=== PATIENT | male | born 1945 | race Caucasian/White ===

== ENCOUNTER 2018-02-04 23:39 | Emergency (ER) | payer BC, SELFPAY ==
[2018-02-04 23:42] VITALS: BP 156/71; PULSE 79; RESP 21; TEMP 37.2; O2SAT 96
--- NOTE | 2018-02-04 23:49 | W.ED.GENAD ---
Discharge Plan Disposition Patient Disposition: HOME Condition: Stable Discharge Details Chief Complaint: Chest Pain Clinical Impression: Burning chest pain, Gastroesophageal reflux disease Primary Care Provider: Narendra Bennett ED Provider: Dominic Haque Home Meds and New Rx's Prescriptions: Continue cetirizine [Zyrtec] 10 MG tablet 10 mg PO PRN RF: 0 [id number]-1-exm-dha-fish oil-flax-E [Thera Tears Nutrition] 1 EACH capsule 2 ea PO DAILY RF: 0 meloxicam [Mobic] 15 MG tablet 15 mg PO DAILY Qty: 30 RF: 2 aspirin 325 MG tablet 325 mg PO DAILY RF: 0 simvastatin 40 MG tablet 20 mg PO DAILY RF: 0 ranitidine HCl [Zantac] 150 MG tablet 1 tab PO BID RF: 0 Discharge Instructions Instructions: Gastroesophageal Reflux Disease (ED) Additional Instructions: you can use maalox and pepto bismol for pain as needed, follow dosing instructions on packaging follow up with your primary care provider this week if you have severe worsening pain, difficulty breathing or chest pressure return to the emergency department Medical Decision Making 73 yo male with hx of gerd, hld comes in with chief complaint of burning in his chest that started about 4 hours ago. He states he felt well all day and ate normally but did have banana bread which he normally doesn't have and had burning in his chest. Denies radiation of pain, diaphoresis, sob and has no abdominal tenderness. I suspect the pt's symptoms are due to gastritis vs reflux vs ulcer, will treat with gi cocktail. Given his age will obtain ekg and troponin to eval for possible acs though unliekly given lack of radiation of pain or increased pain with exertion. No hypoxia or tachycardia so doubt PE and no tearing back pain to suggest dissection labs pending but pain now completely gone with gi cocktail, no new symptoms Pt remains pain free and labs show no acute abnormalities. Given he had the pain more than 3 hours ago do not feel repeat troponin testing indicated. Will have him use maalox as needed and advised f/u with pcp, return precautions given Differential Diagnosis acs, gastritis, gerd, esophagitis Lab Data Lab results reviewed: Yes I reviewed the patient's lab results. ECG Data Attestation: I personally reviewed and interpreted this ECG (s) as follows: Prior ECG tracings: available for review Interpretation: normal sinus rhythm, left axis, rate of 87, normal pr, no st t wave changes HPI General Mode of arrival: ambulatory. Date/Time Provider Initiated Documentation: 02/04/18 23:42. Limitations to Documentation: no limitations. Information obtained by: patient. History of Present Illness 73 year old M presents to the emergency department with the chief complaint of chest burning, described as moderate, Quality is described as burning, and is localized to the chest. Patient reports no radiation. Patient started experiencing this hour(s) (4) and it has been constant. No relieving factors improve symptom(s), No exacerbating factors reported . Patient notes no other symptoms.. Patient did receive the following treatments prior to arrival, other (rolaid) Related Data Home Medications Medication Instructions Recorded Confirmed aspirin 325 mg PO DAILY 02/03/13 05/14/15 simvastatin 20 mg PO DAILY 02/03/13 05/14/15 ranitidine HCl [Zantac] 1 tab PO BID 01/25/15 05/14/15 cetirizine [Zyrtec] 10 mg PO PRN 09/30/17 naeq-1-[id number]-dha-fish oil-flax-E 2 ea PO DAILY 09/30/17 [Thera Tears Nutrition] meloxicam [Mobic] 15 mg PO DAILY #30 tab-cap 10/05/17 Allergies Allergy/AdvReac Type Severity Reaction Status Date / Time polymyxin B sulfate Allergy Unknown Unverified 09/30/17 08:47 [From Polytrim] trimethoprim [From Polytrim] Allergy Unknown Unverified 09/30/17 08:47 Review of Systems Review of Systems All systems reviewed & are unremarkable except as noted in HPI and below Constitutional Denies chills, Denies fever(s) and Denies weakness Eyes Patient Denies loss of vision ENT Denies change in voice Cardiovascular Denies dyspnea Respiratory Denies dyspnea Gastrointestinal Denies abdominal pain, Denies nausea and Denies vomiting Genitourinary Denies dysuria Musculoskeletal Denies joint swelling Integumentary/Breasts Denies rash Neurologic Denies loss of vision and Denies weakness Psychiatric Denies depression Endocrine Denies cold intolerance and Denies heat intolerance Allergic/Immunologic Reports urticaria PFSH Social History Smoking/Tobacco Use Status: Former Tobacco Use Exam Const General: no acute distress Orientation: alert HENMT Head: normal to inspection Ears: external ears normal General nose exam: external nose normal Mouth: moist mucous membranes Eyes General: appearance normal, both eyes and all related structures Neck Neck: normal visual inspection Resp Effort & Inspection: normal respiratory effort and able to speak in complete sentences Cardio Rate: regular rate GI Palpation: soft and nontender Skin General skin exam: no rashes or lesions noted Neuro General: alert and oriented x3 Extrem General: normal to inspection Psych Mental Status: mental status grossly normal
--- NOTE | 2018-02-04 23:55 | ED.GENADUL_ITS ---
Discharge Plan Disposition Patient Disposition: HOME Condition: Stable Discharge Details Chief Complaint: Chest Pain Clinical Impression: Burning chest pain, Gastroesophageal reflux disease Primary Care Provider: Narendra Bennett ED Provider: Dominic Haque Home Meds and New Rx's Prescriptions: Continue cetirizine [Zyrtec] 10 MG tablet 10 mg PO PRN RF: 0 pxjx-8-iyu-dha-fish oil-flax-E [Thera Tears Nutrition] 1 EACH capsule 2 ea PO DAILY RF: 0 meloxicam [Mobic] 15 MG tablet 15 mg PO DAILY Qty: 30 RF: 2 aspirin 325 MG tablet 325 mg PO DAILY RF: 0 simvastatin 40 MG tablet 20 mg PO DAILY RF: 0 ranitidine HCl [Zantac] 150 MG tablet 1 tab PO BID RF: 0 Discharge Instructions Instructions: Gastroesophageal Reflux Disease (ED) Additional Instructions: you can use maalox and pepto bismol for pain as needed, follow dosing instructions on packaging follow up with your primary care provider this week if you have severe worsening pain, difficulty breathing or chest pressure return to the emergency department Medical Decision Making 73 yo male with hx of gerd, hld comes in with chief complaint of burning in his chest that started about 4 hours ago. He states he felt well all day and ate normally but did have banana bread which he normally doesn't have and had burning in his chest. Denies radiation of pain, diaphoresis, sob and has no abdominal tenderness. I suspect the pt's symptoms are due to gastritis vs reflux vs ulcer, will treat with gi cocktail. Given his age will obtain ekg and troponin to eval for possible acs though unliekly given lack of radiation of pain or increased pain with exertion. No hypoxia or tachycardia so doubt PE and no tearing back pain to suggest dissection labs pending but pain now completely gone with gi cocktail, no new symptoms Pt remains pain free and labs show no acute abnormalities. Given he had the pain more than 3 hours ago do not feel repeat troponin testing indicated. Will have him use maalox as needed and advised f/u with pcp, return precautions given Differential Diagnosis acs, gastritis, gerd, esophagitis Lab Data Lab results reviewed: Yes I reviewed the patient's lab results. ECG Data Attestation: I personally reviewed and interpreted this ECG (s) as follows: Prior ECG tracings: available for review Interpretation: normal sinus rhythm, left axis, rate of 87, normal pr, no st t wave changes HPI General Mode of arrival: ambulatory . Date/Time Provider Initiated Documentation: 02/04/18 23:42 . Limitations to Documentation: no limitations . Information obtained by: patient . History of Present Illness 73 year old M presents to the emergency department with the chief complaint of chest burning, described as moderate, Quality is described as burning, and is localized to the chest. Patient reports no radiation. Patient started experiencing this hour(s) (4) and it has been constant. No relieving factors improve symptom(s), No exacerbating factors reported . Patient notes no other symptoms.. Patient did receive the following treatments prior to arrival, other (rolaid) Related Data Home Medications Medication Instructions Recorded Confirmed aspirin 325 mg PO DAILY 02/03/13 05/14/15 simvastatin 20 mg PO DAILY 02/03/13 05/14/15 ranitidine HCl [Zantac] 1 tab PO BID 01/25/15 05/14/15 cetirizine [Zyrtec] 10 mg PO PRN 09/30/17 [id number]-9-hac-dha-fish oil-flax-E 2 ea PO DAILY 09/30/17 [Thera Tears Nutrition] meloxicam [Mobic] 15 mg PO DAILY #30 tab-cap 10/05/17 Allergies Allergy/AdvReac Type Severity Reaction Status Date / Time polymyxin B sulfate Allergy Unknown Unverified 09/30/17 08:47 [From Polytrim] trimethoprim [From Polytrim] Allergy Unknown Unverified 09/30/17 08:47 Review of Systems Review of Systems All systems reviewed & are unremarkable except as noted in HPI and below Constitutional Denies chills, Denies fever(s) and Denies weakness Eyes Patient Denies loss of vision ENT Denies change in voice Cardiovascular Denies dyspnea Respiratory Denies dyspnea Gastrointestinal Denies abdominal pain, Denies nausea and Denies vomiting Genitourinary Denies dysuria Musculoskeletal Denies joint swelling Integumentary/Breasts Denies rash Neurologic Denies loss of vision and Denies weakness Psychiatric Denies depression Endocrine Denies cold intolerance and Denies heat intolerance Allergic/Immunologic Reports urticaria PFSH Social History Smoking/Tobacco Use Status: Former Tobacco Use Exam Const General: no acute distress Orientation: alert HENMT Head: normal to inspection Ears: external ears normal General nose exam: external nose normal Mouth: moist mucous membranes Eyes General: appearance normal, both eyes and all related structures Neck Neck: normal visual inspection Resp Effort & Inspection: normal respiratory effort and able to speak in complete sentences Cardio Rate: regular rate GI Palpation: soft and nontender Skin General skin exam: no rashes or lesions noted Neuro General: alert and oriented x3 Extrem General: normal to inspection Psych Mental Status: mental status grossly normal
[2018-02-05 00:02] LABS: Abs Immature Grans 0.02 k/cumm (0.0-0.09); Absolute Basophil Count 0.03 k/cumm (0.0-0.2); Absolute Lymphocyte Count 2.16 k/cumm (1.2-3.4); Absolute Neutrophil Count 3.78 k/cumm (1.2-6.7); Basophils % 0.4; Eosinophils % 7.2; HCT 40.9 % (40.0-50.0); HGB 13.9 g/dL (13.5-17.5); Immature Grans % 0.3; Lymphocytes % 30.9; Mean Corpuscular Hemoglobin 29.9 pg (27.0-33.0); Mean Platelet Volume 9.6 fL (8.0-11.0); Monocytes % 7.2; Platelet Count 220 x1000/uL (130-400); RBC 4.65 m/cumm (4.50-6.00); RBC Distribution Width 13.8 % (11.8-14.1); White Blood Cell Count 6.99 k/cumm (4.4-10.8)
[2018-02-05 00:23] LABS: ALT 33 U/L (12-78); AST 27 U/L (15-37); Albumin 3.4 g/dL (3.4-5.0); Alkaline Phosphatase 93 U/L (46-116); Anion Gap 9.8 mmol/L (3-11); BUN 17 mg/dL (7-18); Bilirubin, Total 0.3 mg/dL (0.2-1.0); CO2 28.2 mmol/L (21.0-32.0); CREATININE 1.46 mg/dL (0.70-1.30); Calcium 8.2 mg/dL (8.5-10.1); Chloride 109 mmol/L (98-107); Glucose 132 mg/dL (70-100); Lipase 154 U/L (73-393); Magnesium 1.8 mg/dL (1.8-2.4); Potassium 3.5 mmol/L (3.5-5.1); Sodium 147 mmol/L (136-145)
[2018-02-05 00:32] LABS: Troponin I < 0.02 ng/mL (0.00-0.06)
[2018-02-05 00:42] LABS: Prothrombin Time 9.4 sec (9.3-10.8)
[2018-02-05 01:45] VITALS: BP 146/74; PULSE 70; RESP 20; TEMP 37; O2SAT 96
== END 2018-02-05 01:12 | disposition home or self-care (01) ==
LOC: ER 02-05 01:10
PROVIDERS: Emergency Provider Emergency Medicine; PCP General Practice
DX: K21.9 Gastro-esophageal reflux disease without esophagitis (principal); R07.89 Other chest pain; I10 Essential (primary) hypertension
CPT/HCPCS: 36415; 80053; 83690; 93005; 99284; 83735; 84484; 85025; 85610; 93010

== ENCOUNTER 2020-06-26 09:22 | Emergency (ER) | payer OTHER, SELFPAY ==
[2020-06-26] VITALS (32 sets, daily range): BP systolic 138–172; BP diastolic 71–96; PULSE 61–84; RESP 11–24; TEMP 36.2; O2SAT 93–97
--- NOTE | 2020-06-26 09:30 | RT.EKG_ITS ---
APPROVED REPORT Exam: Resting ECG Patient Location: E HR:78 bpm ECG Measurements Heart Rate 78 AXIS TX 181 P 72 QRSd 148 QRS -20 QT 428 T -10 QTc 487 Conclusion Sinus rhythm...normal P axis, V-rate 60- 99 Right bundle branch block...QRSd>120, terminal axis(90,270) I have reviewed and interpreted ECG and agree with software generated interpretation.
--- NOTE | 2020-06-26 09:32 | W.ED.GENAD ---
Discharge Plan Disposition Patient Disposition: HOME Condition: Stable Discharge Details Clinical Impression: Monocular vision loss Primary Care Provider: Unknown,Unknown ED Provider: Fabienne Quiles Home Meds and New Rx's Prescriptions: New clopidogrel [Plavix] 75 mg tablet 75 mg PO DAILY 20 Days Qty: 20 RF: 0 lisinopril 5 mg tablet 5 mg PO DAILY Qty: 20 RF: 0 Continued TheraTears Nutrition 1 EACH capsule 2 ea PO DAILY RF: 0 aspirin 325 MG tablet 325 mg PO HS RF: 0 simvastatin 40 MG tablet 20 mg PO HS RF: 0 sertraline 100 mg tablet 100 mg PO QAM RF: 0 omeprazole 20 mg capsule,delayed release(DR/EC) 20 mg PO QAM RF: 0 budesonide-formoterol [Symbicort] 80-4.5 mcg/actuation HFA aerosol inhaler 1 inh INHALATION DAILY RF: 0 albuterol sulfate 90 mcg/actuation Hfa Aerosol Inhaler 2 inh INHALATION PRN PRNRF: 0 vitamin B27-iewaq acid 500-400 mcg Tablet PO QAM RF: 0 Discharge Instructions Instructions: Blurred Vision (ED) Additional Instructions: Start taking Plavix daily as directed for the next 21 days. Continue taking your aspirin as directed. [facility] for reevaluation with neurology, ophthalmology and for an outpatient ROBIN (transesophageal echocardiogram). 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 Start taking the lisinopril as directed. You can also follow-up with neurology Dr. Tapia here at [facility] for reevaluation. Return immediately to the emergency department if you develop any worsening or new concerning symptoms. Discharge Data Discharge Date/Time-TO BE ENTERED AT DEPARTURE: 06/26/20 14:57 Discharge Physician: Fabienne Quiles Medical Decision Making 75 yo M who presents to the ED w/ a c/o sudden and brief onset of left-sided vision loss that occurred this morning while watching TV. Denies any symptoms at present. Blood pressure hypertensive, otherwise vitals within normal limits. He appears nontoxic and comfortable. No other focal deficit. Bedside ultrasound done at bedside and no evidence of retinal detachment. EKG notes a rate of 78, sinus, right bundle branch block and no acute ST ischemic findings. Differential diagnosis includes amaurosis fugax, retinal detachment, acute CVA, acute retinal vein or artery occlusion, migraine, seizure, etc. we will place an IV, bolus IV fluids, screening labs, CT head, chest x-ray and plan for MRI/MRA brain and neck. CT head negative. Labs reviewed and unremarkable. Troponin negative. CRP 0.45. ESR analyzer down and lab needs to be sent to [place]. Patient is agreeable with plan for MRI/MRA. MRI/MRA brain and neck negative. Case discussed with [facility] neurology who recommended dual antiplatelet therapy with Plavix 75 mg once daily for 21 days and then to resume just aspirin. Agrees that this is likely embolic in nature but does not see indication for admission. 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 Also recommend lisinopril 5 mg daily if blood pressure remains high. Patient reassessed and he remains asymptomatic and feels good to go home. ESR resulted and normal at 27. Advised to follow up with the primary care doctor for re-evaluation. Usual and customary return precautions given prior to discharge. Medical Records Medical records reviewed: Yes I reviewed the patient's medical records. Imaging Data Radiologic Study: Radiologist's impression: XR CHEST 2V PA LATERAL CLINICAL HISTORY: L eye blurry vision, r/o acute disease TECHNIQUE: 2D digital imaging was performed. COMPARISON: CR CHEST 2 VIEWS PA,LAT from 09/25/2010 CT CHEST FOR PULMONARY EMBOLUS from 05/13/2015 FINDINGS: Aorta: Mildly tortuous. HEART: Normal size. PULMONARY VASCULATURE: Normal. LUNGS: Clear. PLEURAL SPACE: No pleural effusion or pneumothorax. BONE:Normal. IMPRESSION: No acute pulmonary findings. CT HEAD WO CLINICAL HISTORY: sudden vision loss L eye, r/o acute cva. TECHNIQUE: Imaging Protocol: Axial computed tomography images with coronal and sagittal reformatted images were created and reviewed COMPARISON: CT HEAD WITHOUT CONTRAST from 05/14/2015 FINDINGS: Ventricles and Extra axial spaces: Normal in size and morphology for the patient's age. Hemorrhage: None. Cerebral parenchyma: Normal. Midline shift: None. Brainstem/Cerebellum: Normal. Calvarium: Normal. Visualized Paranasal sinuses/Mastoids: Minimal ethmoid sinus disease. Mastoids clear. Soft Tissues: Unremarkable. IMPRESSION: No acute intracranial process. MRI:MR angio brain wo CLINICAL HISTORY: sudden vision loss L eye, r/o acute cva. TECHNIQUE: Multiplanar multisequence MRA of the brain was performed. IV Contrast: mL of Magnevist contrast administered. COMPARISON: None. FINDINGS: Carotid Arteries: Petrous: Normal. Cavernous: Normal. Cerebral: Normal. Middle Cerebral Arteries: Right: No aneurysm or significant stenosis. Left: No aneurysm or significant stenosis. Anterior Cerebral Arteries: Right: No aneurysm or significant stenosis. Left: No aneurysm or significant stenosis. The left anterior cerebral artery is supplied via the anterior tear communicating artery, a normal variant.. Vertebral Arteries: Right: No aneurysm or significant stenosis. Left: No aneurysm or significant stenosis. . Basilar Artery: No aneurysm or significant stenosis. Small Vessels: No evidence of beading. IMPRESSION: MRA examination of the [place] of [place] within normal limits of anatomic variation. MR ANGIO NECK WO CLINICAL HISTORY: sudden vision loss L eye, r/o acute cva. TECHNIQUE: Multiplanar multisequence MRA of the Neck was performed. COMPARISON: No exams were available for comparison FINDINGS: Common Carotid: Evaluation of the proximal common carotid arteries limited due to motion artifact. Right: No dissection, occlusion or significant stenosis. Left: No dissection, occlusion or significant stenosis. External Carotid: Right: No evidence of occlusion or significant stenosis. Left: No evidence of occlusion or significant stenosis. Internal Carotid: Right: No dissection, occlusion or significant stenosis. Left: No dissection, occlusion or significant stenosis. Vertebral Artery: Right: No dissection, occlusion or significant stenosis. Left: No dissection, occlusion or significant stenosis. The visualized paraspinal soft tissues are unremarkable. IMPRESSION: No evidence of dissection, occlusion or significant stenosis. Lab Data Lab results reviewed: Yes I reviewed the patient's lab results. Labs: Laboratory Tests Range/Units 06/26/20 06/26/20 06/26/20 09:45 09:45 09:45 WBC (4.4-10.8) 10^3/uL 5.70 RBC (4.36-5.78) 10^6/uL 5.14 Hgb (13.5-17.5) g/dL 14.7 Hct (40.0-50.0) % 43.7 MCV (80-95) fL 85.0 MCH (27.0-33.0) pg 28.6 MCHC (32.0-36.0) % 33.6 RDW (11.8-14.1) % 13.5 Plt Count (130-400) 10^3/uL 232 MPV (8.0-11.0) fL 9.3 Immature Gran % 0.7 Neutrophils % 68.3 Lymphocytes % 19.5 Monocytes % 7.0 Eosinophils % 4.0 Basophils % 0.5 Nucleated RBC % % 0 Absolute Neutrophils (1.2-6.7) 10^3/uL 3.89 Absolute Lymphocytes (1.2-3.4) 10^3/uL 1.11 L Absolute Monocytes (0.1-0.8) 10^3/uL 0.40 Absolute Eosinophils (0.0-0.7) 10^3/uL 0.23 Absolute Basophils (0.0-0.2) 10^3/uL 0.03 Sodium (136-145) mmol/L 141 Potassium (3.5-5.1) mmol/L 3.9 Chloride (98-107) mmol/L 103 Carbon Dioxide (21.0-32.0) mmol/L 26.0 Anion Gap (3-11) mmol/L 12.0 H BUN (7-18) mg/dL 22 H Creatinine (0.70-1.30) mg/dL 1.4 H Estimated GFR/1.73 m2 (mL/min/1.73m2) 49.27 Glucose (74-106) mg/dL 115 H Calcium (8.5-10.1) mg/dL 8.8 Magnesium (1.8-2.4) mg/dL 1.9 Total Bilirubin (0.2-1.0) mg/dL 0.6 AST (15-37) U/L 30 ALT (16-63) U/L 34 Alkaline Phosphatase (46-116) U/L 90 Troponin I (<0.06) ng/mL < 0.05 C-Reactive Protein (0.0-0.3) mg/dL 0.45 H Total Protein (6.4-8.2) g/dL 7.5 Albumin (3.4-5.0) g/dL 3.6 ECG Data Attestation: I personally reviewed and interpreted this ECG (s) as follows: Interpretation: Rate of 78, sinus, right bundle branch block. No acute ST elevation or depression. RI 181. QRS 148. QTc 487. HPI General Mode of arrival: ambulatory. Date/Time Provider Initiated Documentation: 06/26/20 09:31. Limitations to Documentation: no limitations. Information obtained by: patient. HPI Narrative: Patient is a 75-year-old male with a history of hypertension, hyperlipidemia, GERD, prostate cancer who presents with sudden vision loss in his left eye that lasted 15-minute this morning. Patient states he was sitting watching TV when he noticed sudden loss of vision in his left eye. Patient states the symptoms lasted 15 minutes and then completely resolved. He states when the symptoms were improving it seemed like a shade was being pulled back open improving his vision. Patient admits to mild headache over the past few days but otherwise denies any other symptoms of fever, eye pain, nausea, vomiting, chest pain, shortness of breath, dizziness, unilateral extremity numbness or weakness. Related Data Home Medications Medication Instructions Recorded Confirmed aspirin 325 mg PO HS 02/03/13 06/26/20 simvastatin 20 mg PO HS 02/03/13 06/26/20 TheraTears Nutrition 2 ea PO DAILY 09/30/17 06/26/20 albuterol sulfate 2 inh INHALATION PRN PRN 06/26/20 06/26/20 budesonide-formoterol [Symbicort] 1 inh INHALATION DAILY 06/26/20 06/26/20 clopidogrel [Plavix] 75 mg PO DAILY 20 Days #20 tab 06/26/20 lisinopril 5 mg PO DAILY #20 tab 06/26/20 omeprazole 20 mg PO QAM 06/26/20 06/26/20 sertraline 100 mg PO QAM 06/26/20 06/26/20 vitamin [id number] acid tab PO QAM 06/26/20 Previous Rx's Medication Instructions Recorded clopidogrel [Plavix] 75 mg PO DAILY 20 Days #20 tab 06/26/20 lisinopril 5 mg PO DAILY #20 tab 06/26/20 Allergies Allergy/AdvReac Type Severity Reaction Status Date / Time polymyxin B sulfate Allergy Unknown Unverified 06/26/20 09:34 [From Polytrim] trimethoprim [From Polytrim] Allergy Unknown Unverified 06/26/20 09:34 General INÉS: 2 Review of Systems All systems reviewed & are unremarkable except as noted in HPI and below Constitutional Constitutional: Reports as per HPI, Denies chills and Denies fever(s) Eyes Eyes: Reports blurry vision and Reports loss of vision (sudden and brief, left eye) ENT Ears, Nose, Mouth, and Throat: Denies dizziness, Denies sore throat and Denies throat swelling Cardiovascular Cardiovascular: Denies chest pain and Denies dyspnea Respiratory Respiratory: Denies cough and Denies dyspnea Gastrointestinal Gastrointestinal: Denies abdominal pain, Denies diarrhea and Denies vomiting Genitourinary Genitourinary: Denies hematuria and Denies dysuria Musculoskeletal Musculoskeletal: Denies back pain and Denies numbness Integumentary/Breasts Skin/Breast: Denies lesions and Denies rash Neurologic Neurologic: Denies dizziness, Denies localized weakness, Reports loss of vision (sudden and brief, left eye) and Denies numbness Allergic/Immunologic Allergic/Immunologic: Denies throat swelling [facility] Medical History (Updated 06/26/20 @ 19:28 by Fabienne Quiles DO) Bipolar affective disorder GERD (gastroesophageal reflux disease) HTN (hypertension) Hx of hyperlipidemia Prostate cancer Surgical History (Updated 06/26/20 @ 19:28 by Fabienne Quiles DO) History of cataract surgery History of knee surgery History of prostatectomy Social History Smoking/Tobacco Use Status: Former Tobacco Use Smoking risk assessment performed?: Yes Alcohol Intake: former Drug use: Never Details: quit smoking in 1983 quit alcohol in 1987 Do you feel safe at home: Yes Do you feel safe in your relationship?: Yes Exam Const General: cooperative and no acute distress HENMT Head: normal to inspection Face and sinus: normal facial exam Eyes General: appearance normal, both eyes and all related structures Pupils: PERRL EOM: EOM intact bilaterally Neck Neck: normal visual inspection and No submandibular swelling Lymphatic: no lymphadenopathy noted Chest Chest: normal inspection of the chest and no tenderness Resp Effort & Inspection: normal respiratory effort and able to speak in complete sentences Auscultation: clear to auscultation bilaterally Cardio Rate: regular rate Rhythm: regular rhythm GI Inspection: normal to inspection Palpation: soft, not firm, not rigid and nontender Auscultation: normal bowel sounds Back/Spine/Pelvis Pelvis: no pain with anterior-posterior compression Skin General skin exam: no rashes or lesions noted Neuro General: patient alert, patient awake and patient oriented x3 Cranial Nerves: CN's II-XI intact bilaterally Cognition: normal cognition Speech: speech normal Motor: muscle tone normal throughout Sensory Exam: no sensory deficits noted Extrem General: normal to inspection, full ROM, capillary refill normal, no calf tenderness bilaterally and no edema Psych Appearance: grossly normal Mental Status: mental status grossly normal Speech and Movement: speech and movement normal Affect: normal affect
--- OUTSIDE RECORDS SUMMARY | 2020-06-26 09:44 | XMS_ITS | Encounter Summary ---
:1945 Author Organization Department [facility] Address [address] [place] [address] Care Team Providers Name Role Phone MANNY ARTEAGA Primary Care Provider Unavailable TOSHIA [place] Unavailable Unavailable Insurance Providers: All historical and current Section Date Range: From patient's date of to the date document was created.This section includes the names of all active insurance providers for the patient. Insurance Type of Plan Start of End of Group Member Insurance Policy P atient's Provider Coverage Name Policy Policy Number ID Provider's Dhillon's Relationship Coverage Coverage Telephone Name to Policy Number Dhillon NICOLE PREFERRED BASIC May 17 [id number] OSCAR LITTLE P ATIENT [place]BS [place] PROVIDER SELF 2002 [id number] AN (FEDERAL) ORGANIZAT ION (PPO) [place] PREFERRED BASIC May 17 [id number] [phone] OSCAR MACEDO PATIENT FEDERAL PROVIDER SELF 2002 22 [id number] AN ORGANIZAT ION (PPO) [place]-F PRESCRIPT BCBS May 17, [id number] [phone] OSCAR PASTRANA PATIENT EP BCBS ION FEP [id number] AN PLAN MEDICARE MEDICARE PART Jan 15, PART A [id number] OSCAR LITTLE PATIENT (WNR) (M) A 2008 [id number] AN Selected Encounter This section includes the information on record at [place] for the Encounter. Date/Time Encounter Type Encounter Reason Provider Source Description Apr 09, 2020 OFFICE/OUTPATIEN GERIPACT ICD-10-CM JENNIE ARTEAGA 11:00 AM T VISIT EST W10.8XXA Fall DGET K (on) (from) other stairs and steps, initial encounter with Provider Comments: Fall (on) (from) other Stairs and Steps, Initial Encounter IHE Encounter Template Text not used by [facility] Assessments - Encounter Diagnoses This section includes the primary and secondary diagnoses documented forthe Encounter. Date/Time Primary/Secondary Diagnosis Name Provider Source Diagnosis Apr 10, 2020 PRIMARY Fall (on) (from) BLACK,[place] 12:01 PM other stairs and [place] [facility] steps, initial encounter Apr 10, 2020 SECONDARY Allergic rhinitis, BLACK,TOSHIA [place] 12:01 PM unspecified [place] [facility] Apr 10, 2020 SECONDARY Generalized anxiety BLACK,TOSHIA [place] 12:01 PM disorder [place] [facility] Apr 10, 2020 SECONDARY Mild intermittent BLACK,TOSHIA [place] 12:01 PM asthma, [place] [facility] uncomplicated Apr 10, 2020 SECONDARY Pain in unspecified BLACK,TOSHIA [place] 12:01 PM knee [place] [facility] Apr 10, 2020 SECONDARY Unspecified mood BLACK,TOSHIA [place] 12:01 PM [affective] [place] [facility] disorder Apr 10, 2020 SECONDARY Unsteadiness on BLACK,[place]HIA [place] 12:01 PM feet [place] [facility] Plan of Treatment: Future Appointments (+ 6 months) and Future Tests (+/- 45 days) The Plan of Treatment section includes future care activities for the patient from all [place] treatment facilities. This section includes future appointments and future orders which are active, pending or scheduled.Future Appointments This section includes appointments that were scheduled to occur 6 months from the date of the Encounter, up to a maximum of 20 appointments. The data comes from all [facility]. Appointment Date/Time Appointment Type Appointment Facili ty Name May 02, 2020 01:30 PM AMBULATORY - NONE [facility] Active, Pending, and Scheduled Orders This section includes a listing of several types of active, pending, and scheduled orders, including clinic medications orders, diagnostic test orders, procedure orders and consult orders; where the start date of the order is 45 days before the date of the Encounter or 45 days after the date of the Encounter. The data comes from all [place] treatment facilities. Test Date/Time Test Type Test Details Facility Name May 02, 2020 01:53 PM Laboratory - Chemistry PSA (SUPERINTENDENT SALES) [place] Order BLOOD(GOLD) SERUM SP [facility] Lab Results: +/- 30 days of the encounter This section includes the Chemistry and Hematology Lab Results on record with [facility] for the patient. Radiology Reports and Pathology Reports are provided separately, in subsequent sections.Lab Results This section contains the Chemistry/Hematology Results that were resulted 30 days before or 30 days after the date of the Encounter. Date/Time Source Result Type Result - Unit Interpretation Reference Range Comment May 02, 2020 [place] LIPOPROTEIN Specimen Type: PLASMA 01:53 PM [facility] CHOLESTEROL FRACT. Comment: Lala ts performed on [employer] Mechanic (405) PANEL Ordering Provide r: MANNY ARTEAGA Report Released Date/Time: Sep 12, 2019 11:58 AM Reporting Lab: [place] [facility] [address] [facility] [address] Performing Lab: [place] [facility] [address] [facility] [address] CHOLESTEROL 194 mg/dL 0-199 TRIGLYCERIDE 166 mg/dL H 0-149 HDL CHOLESTEROL 39 mg/dL L >40 LDL CHOLESTEROL (CALC) 122 mg/dl 0-129 May 02, 2020 [place] GLYCOHEMOGLOBIN (A1C Specimen Ty pe: BLOOD 01:53 PM [facility] ONLY) Comment: Tests performed on [employer] Mechanic (405) Ordering Provide r: MANNY ARTEAGA Report Released Date/Time: Sep 12, 2019 11:58 AM Reporting Lab: [place] [facility] [address] [facility] [place] [address] Performing Lab: [place] [facility] [address] [facility] [place] [address] HEMOGLOBIN A1C 5.6 % 4.0-5.6 May 02, 2020 [place] P4 GLU,BUN,CREAT,LYTES,CA Specim en Type: PLASMA 01:53 PM [facility] Comment: Tests performed on [employer] Mechanic (405) Ordering Provide r: MANNY ARTEAGA Report Released Date/Time: Sep 12, 2019 11:58 AM Reporting Lab: [place] [facility] [address] [facility] [place] [address] Performing Lab: [place] [facility] [address] [facility] [place] [address] UREA NITROGEN 19 mg/dL 7-25 SODIUM 139 mmol/L 135-145 POTASSIUM 4.3 mmol/L 3.5-5.0 CHLORIDE 104 mmol/L 100-110 CARBON DIOXIDE 28 mmol/L 20-30 ANION GAP 7 mmol/L 4-16 GLUCOSE 93 mg/dL 65-100 CREATININE 1.22 mg/dl 0.5-1.5 CALCIUM 8.9 mg/dL 8.5-10.5 eGFR 58 mL/min L >60 May 02, 2020 01:53 [facility] CBC PROFILE Specimen Type : BLOOD PM [facility] No comment enter ed. Ordering Provide r: MANNY ARTEAGA Report Released Date/Time: Sep 12, 2019 11:58 AM Reporting Lab: [facility] [address] [facility] [address] Performing Lab: [facility] [address] [facility] [address] WBC 5.9 10*3/uL 4.5-11.0 RBC 5.04 10*6/uL 4.23-5.66 HGB 14.5 g/dl 12.8-17 HEMATOCRIT 44.6 % 39.2-50.4 MCV 88.5 fl 82-99 MCH 28.8 pg 26.2-32.6 MCHC 32.5 g/dl 30.8-35.1 PLT 241 10*3/uL 140-360 MPV 9.5 fl 9.2-12.4 RDW 14.1 % 12.0-16.0 LYMPH % 26.8 % 14.0-42.3 MONO % 7.3 % 5.1-13.7 NEUT % 61.1 % 43.7-75.8 EOS % 3.7 % 0.4-6.8 BASO % 0.8 % 0.1-2.0 IG % 0.3 % 0.0-0.7 NUCLEATED RED CELLS 0.0 /100 WBC 0.0-0.0 ABSOLUTE IG 0.0 10*3/uL 0-0.06 ABSOLUTE BASOPHILS 0.1 10*3/uL 0.01-0.13 ABSOLUTE EOS. 0.2 10*3/uL 0.03-0.44 ABSOLUTE LYMPHOCYTES 1.6 10*3/uL 1.0-3.2 ABSOLUTE MONOCYTES 0.4 10*3/uL 0.3-1.1 ABSOLUTE GRANULOCYTES 3.6 10*3/uL 2.2-7. 6 ABSOLUTE NRBC 0.00 10*3/uL 0-0 May 02, 2020 01:53 [place] PROFILE Specimen Type : PLASMA PM [facility] Comment: Tests performed on [employer] Mechanic (405) Ordering Provide r: MANNY ARTEAGA Report Released Date/Time: Sep 12, 2019 11:58 AM Reporting Lab: [place] [facility] [address] [facility] [place] [address] Performing Lab: [place] [facility] [address] [facility] [place] [address] PROTEIN, TOTAL 7.1 g/dL 6.0-8.5 ALBUMIN 3.9 g/dL 3.2-5.0 BILIRUBIN, TOTAL 0.7 mg/dL 0.2-1.2 ALKALINE PHOSPHATASE 82 U/L 40-150 ALT(SGPT) 27 U/L 7-52 AST(SGOT) 30 U/L 5-34 FIB-4 SCORE 1.82 INDEX <2.67 May 02, 2020 01:52 PM [facility] TSH Spe cimen Type: SERUM Comment: Added by [id number] on May 02, 2020@20:09 Tests performed on [employer] Mechanic (405) Ordering Provide r: TOSHIA OH Report Released Date/Time: Apr 10, 2020 12:14 PM Reporting Lab: [facility] [address] [facility] [place] [address] Performing [facility]: [facility] [address] [facility] [place] [address] TSH 2.02 uIU/mL 0.35-5.00 May 02, 2020 01:52 PM [facility] VITAMIN B-12 Spe cimen Type: SERUM Comment: Added by [id number] on May 02, 2020@20:09 Tests performed on [employer] Mechanic (405) Ordering Provide r: TOSHIA OH Report Released Date/Time: Apr 10, 2020 12:14 PM Reporting Lab: [facility] [address] [facility] [place] [address] Performing Lab: [facility] [address] [facility] [place] [address] VITAMIN B-12 810 pg/mL 200-900 May 02, 2020 01:52 [facility] PSA (SUPERINTENDENT SALES) Specimen Type : SERUM PM [facility] Comment: Added by [id number] on May 02, 2020@20:09 Tests performed on [employer] Mechanic (405) Ordering Provide r: TOSHIA OH Report Released Date/Time: Apr 10, 2020 12:14 PM Reporting [facility] [address] [facility] [address] Performing Lab: [facility] [address] [facility] [address] PSA (SUPERINTENDENT SALES) <0.10 ng/mL 0-4.0 Social History: Smoking Status (Most current) and Tobacco Use (All prior to encounter date) This section includes the most current, and the historical, smoking and tobacco-related health factors from the [place] facility where the Encounter took place.Current Smoking Status This section includes the most current smoking, or tobacco-related health factor, from the [place] facility where the Encounter took place. Date/Time Current Smoking Status Comment Facility Apr 09, 2020 11:00 AM VA-TOBACCO FORMER USER [facility] [place] [facility] Tobacco Use History This section includes a history of the smoking, or tobacco-related health factors, that were collected on or before the date of the Encounter. The data comes from the [place] facility where the Encounter took place. Date/Time Smoking Status/Tobacco Use Comment [facility] Apr 09, 2020 11:00 AM VA-TOBACCO QUIT 15 YRS OR MORE [place] [facility] Jan 14, 2018 03:08 PM VA-TOBACCO FORMER USER [place] [facility] Jan 14, 2018 03:08 PM VA-TOBACCO QUIT 15 YRS OR MORE [place] [facility] Mar 16, 2017 09:08 AM QUIT TOBACCO USE > 7 YEARS AGO [place] [facility] quit 1983Mar 04, 2016 10:28 AM QUIT TOBACCO USE > 7 YEARS AGO [place] [facility] Q[facility] 1983Mar 10, 2005 10:47 AM HISTORY OF SMOKING [place] [facility] 1983Mar 31, 2004 09:26 AM HISTORY OF SMOKING [place] [facility] Mar 31, 2004 09:26 AM QUIT TOBACCO USE > 7 YEARS AGO [place] [facility] Aug 22, 2001 01:30 PM HISTORY OF SMOKING [place] [facility] Advance Directives: All historical and current Section Date Range: From patient's date of to the date document was created. This section includes ALL of a patient's completed or amended VA Advance and Rescinded Directives. The entries below indicate that a directive exists for the patient, but an actual copy is not included with this document. The data comes from all [place] facilities. Date Advance Directives Provider Source Feb 23, 2014 ADVANCE DIRECTIVE EYAL MONTILLA [facility] Encounter Notes: All associated encounter notes This section contains the clinical notes associated to the Encounter. Date/Time Encounter Note(s) Provider Source Apr 09, 2020 11:05 AM TELEHEALTH NOTE: [place] LOCAL TITLE: VIDEO-CONNECT NOTE [facility] STANDARD TITLE: TELEHEALTH NOTE DATE OF NOTE: APR 09, 2020@11:05 ENTRY DATE: APR 07, 2020@16:35:10 AUTHOR: TOSHIA OH EXP COSIGNER: MANNY ARTEAGA URGENCY: STATUS: COMPLETED VIDEO-CONNECT NOTE Has ADDENDA [place] seen the [facility] Video Connect: [X] Provider confirmed that [place] is currently located at the following address listed in their CPRS chart. [address] [place] [address] e-911: Call [phone] to speak with an agent who can put you in touch with a plug making operator at the Patient's location. Y ou must have the physical location (address) where the Patient is currentl y located. Verbal informed consent has been obtained. The p atient has been provided with a full explanation of the risks and benefit s of TeleMental Health. Alternatives for obtaining care through an in-pe on Mental Health visit and the patients right of refusal at any time du ring this session has been explained. SUBJECTIVE: cc: Losing balance frequently HPI: 75 year old MALE, pmh b ipolar disorder, anxiety, JAY JAY, CKD stage 3, asthma, prostate ca, obesity presents for chronic diseas e mgmt. He has many questions and concerns today. #Runny nose Sniffling Sun & Mon, headache around top rim of head (ate couple sugar cubes and went away). 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), n/v/d, change in or loss of taste or smell Denies covid exposure, mostly house-bound with s ocially distanced visit from daughter twice a month #Concern for loss of balance Losing balance frequently, frequently uses wal ls to balance/steady self, ongoing since summer 2019 Describes recent fall last w tanana when getting up and turning outside on the front steps, with bruising on hip and buttocks, did hi t side of head, landed on cat bed and had no LOC, confusion, drowsiness Describes trying to walk in a straight line but finds himself walking to the left Happens when turning head, changing position ex sit to stand Denies change in vision, slurred speech, difficu lty understanding/speaking, blurry vision, dizziness, li ghtheadedness, unilateral weakness, facial drooping, slowness of movements; no sensation of room spin rhiannon, no symptoms when lying down and turning head #Bilateral knee pain Legs feel weaker, like they are going to give ou t but haven't yet Pain worse with activity, finds R more painful #Activity intolerance +SOB, finding that he gets winded more easily an d has to stop to catch his breath Exercise mostly going to and from door to feed c at, [address]; cancelled getting the paper so he would not have to walk Denies chest pain, pressure, jaw/arm pain, palpi tations Ongoing since summer/fall #Constipation Finding himself having to strain and digitally d isimpact self BM every 3-4 days Drinks 2 coffee mugs of water a day On miralax, doesn't like latest flavor of psylli um so hasn't been taking that #Bipolar/anxiety/depression On sertraline. Feels overwhelmed because he has a lot o f trash in his house, accumulated when recycling stopped taking certain items Buys books to read but doesn't read them No mention of auditory hallucinations, denies SI Declines MH counseling at this time ROS: Gen: Sleeps well- 12 hr/day, good energy, appeti te good. No weight loss/gain. Denies fever/chills/weakness HEENT: Headache on Wednesday. +Runny nose now res olved. Denies ST, visual disturbance Resp: Denies SOB, dyspnea, cough, hemoptysis CV: Denies chest pain or pressure, palpitations, lightheadedness, DELONG GI: +Constipation. Denies n/v/d, blood in stool, heartburn : Denies urinary frequency, urgency, incontine nce, nocturia MSK: Denies joint pain, myalgias, swelling/redne ss of joints or extremities Neuro: +Neuropathy, electric shocks to toes- not bothersome lately. +Poor balance as above. Denies tingling, weakness PSYCH: Concerned with fallin g and balance. +Anxious. Feeling somewhat depressed and overwhelmed, unmotivated. Wants to do things , such as reading, but can't bring himself to do them. Explicitly denies SI, HI. Social History: Smoking: [] yes [x] no former use, quit 1983 ETOH: [] yes [x] no former use, quit 1987 Rec drugs: [] yes [x] no Caffeine: [] yes [] no cups/day Activity: Limited lately, ar ound the house, to end of driveway to get the mail ~ 100 feet, feeds cats Relationship: . Lives in [facility]. 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 Has 2 daughters, 1 of whom visits pt twice monthly History: Service [employer] Service # Entered S eparated Discharge [employer] [id number] JAN 04, 1964 J UN 1965 GENERAL Exposures: non combat exposure PMH: Active problems - Computerized Problem List is t he source for the followin. Gastroesophageal reflux disease 2. Hallucinations MRI 03/2019: 1. No acute infarct or acute intracrania l findings. 2. Minimal small vessel ischemic disease 3. Lichen simplex chronicus 4. Tinea pedis 5. Obstructive sleep apnea of adult 6. Mood disorder 7. Chronic kidney disease stage 3 8. Keratoderma 9. Allergic conjunctivitis 10. Trifascicular block 11. Cancer, prostate, primary 12. Asthma 13. Low Back Pain, Lumbago 14. Personal History of Colonic Polyps 15. Obesity 16. Esophageal Reflux 17. Anxiety Disorders 18. Bipolar Disorder NOS 19. Paranoia 20. Pure hypercholesterolemia MEDS: Active Outpatient Medications (excluding Supplie s): Active Outpatient Medications Status 1) BUDESONIDE 80/FORMOTER 4.5MCG 120D INH INHA LE 2 PUFFS ACTIVE BY MOUTH TWICE A DAY FOR BREATHING/RINSE MOUTH WITH WATER,SWISH AROUND AND SPIT OUT AFTER USI NG INHALER 2) POLYETHYLENE GLYCOL 3350 ORAL PWDR TAKE 1 C APFUL (17 ACTIVE GRAMS) BY MOUTH EVERY DAY , DISSOLVED IN 4 TO 8 OZ. CLEAR LIQUID / FOR CONSTIPATION 3) PSYLLIUM ORAL PWD TAKE 1 TABLESPOONFUL BY M OUTH EVERY ACTIVE DAY AFTER DISSOLVED IN 4 TO 8 OZ. 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 Cooperative, pleasant demeanor. No apparent distress. Neuro: Face symmetrical without drooping. Puffs out cheeks, tongue to cheek, sticks out tongue midline, smiles, closes eyes s hut, raises eyebrows, shrugs shoulders and turns head L/R easily. PSYCH: Anxious affect/demean or. Maintains eye contact 50% of time on video call. Tangential speech pattern. Speech clear, fluid, rambling at times Labs/Tests: Next F2f, CMP, lipids, A1c ASSESSMENT/PLAN: #Risk for falls/balance problem Will f/u within 1 month f2f neuro eval, gait ass essment Physical therapy ordered for balance training Guardian alert necklace ordered, advised to wear or have near at all times Discuss d/c aspirin Discussed ED/911 if FAST symptoms, fall with hea d strike #Asthma Albuterol inhaler used, directed on us e as a rescue inhaler. Plan to start Symbicort if using albuterol >2x/w tanana #Rhinitis No Covid testing at this serina e, continue to monitor symptoms, will call if temp > 100, cough, shortness of breath, loss of taste/s cody or known exposure #Knee pain Activity encouraged, slow and near culver Recommended 650 mg Tylenol up to TID, will buy a t pharmacy PT consult #Constipation Increase water intake to 6-8 glasses/day, contin ue taking fiber and metamucil Could consider adding additional supplementation if no improvement, will hold off at this time #Bipolar/anxiety Continue on sertraline SW consulted Declines MH counseling at this time Motivational interviewing and encouragement for change behaviors and goal setting, ex. making to do list for getting house in order #Continuous Health Monitoring/Prevention Sigmoid/colo due: 05/2020, discuss at next visit Counseling reviewed: Diet, exercise Immunizations: Up to date [x], Pneumovax [], tet anus [], flu vaccine [], Shingrix [] Depression screen: [x]neg []pos AD: Filed 2007 Reviewed: Medication/treatment benefits/risks/si de effects/monitoring Side effects from medications [x] yes [] no RTC: within 1 month f2f for neuro eval, gait ass essment, cardiac and resp assessment given increasing SOB Reminders: Advance Directive Screen: Patient has an Advance Directive on file a t [facility]. The patient received education about advance directive s as well as written notification of his/her rights. Patient has an up to date Advance Directiv e document on file at this [facility]. No updates are needed at this time. The patient received education about advan ce directives as well as written notification of his/her rights. Tobacco Use Screening: The patient is a former tobacco user. The patient quit fifteen or more years ago . Follow Up Colonoscopy: Colonoscopy is due based on information christie loja to this reminder. Defer reminder for 4 months Reason for deferral: Not mentioned at t his visit given extent of patient complaints and questions. Will f /u in 3 months and address Alcohol Use Screen (AUDIT-C) & F/U: Alcohol Screen: SCREEN FOR ALCOHOL (AUDIT-C) An alcohol screening test (AUDIT-C ) was negative (score=0). 1. How often did you have a drink containing alcohol in the past year? Never 2. How many drinks containing alco hol did you have on a typical day when you were drinking in the past year? Response not required due to respo nses to other questions. 3. How often did you have six or m ore drinks on one occasion in the past year? Response not required due to respo nses to other questions. Falls & Incontinence Screen: Falls Screen: 1. One fall with no injury. Falls evaluation: (Must be completed by PROV IDER after Positive Falls Screen!) Circumstances of Fall: (I.e. how fall(s) o ccurred; patient injury sustained; treatment required for injury.) Pt with worsening balance, feels like he has to hold on to culver for balance. It occurs when he changes position or moves head too fast. Medications patient is taking: (Review of medications which MAY have contributed to patient fall or mobility di sorder.) No medications were identified which con tributed to patient fall or mobility disorder. Relevant Chronic Conditions (diseases diso rders likely to contribute to fall risk, e.g. DJD both hips with stiffne ss and pain): The patient has chronic diseases or disorders which likely contributed to fall risk. Please specify: Which conditions? Obesity, low back an d knee pain, mood disorder Diagnostic Plans/Therapeutic Recommendatio ns (Check all that apply): Use of Adaptive/Assistive Equipment. Please Specify: ordering guardian assi st necklace, ?walker or cane pending PT recs Adaptation of Living Conditions to Decre ase Fall Risk. Please Specify: SW consult for help to eliminate trash in house Actions Taken (to implement above diagnost ic plans): Referrals/Consults: Those ordered: physical therapy, socia l work Medication Reconciliation: Outpatient: Has the patient been taking medications as documented in the EMLR? YES: The patient has been taking medicatio ns as documented in the EMLR. Essential Medication List for Review used to complete this medication reconciliation. INCLUDED IN THIS LIST: Alphabetical list o f active outpatient prescriptions dispensed from this VA (loca l) and dispensed from another VA or DoD facility (remote) as well as inp atient orders (local, pending and active), local clinic medications, loc ally documented non-VA medications, and local prescriptions that have or been discontinued in the past 90 days. - All changes in medic ations, including all non-VA/Herbal/OTC medications were entered into CPRS. - If there were any medications the patien t should no longer take, they were discontinued. - The patient/caregiver was instructed to update this list, discard old lists, and take this list to the next appo intment, whether with a VA or non-VA provider. Homelessness/Food Insecurity Screen: In the past 2 months, have you been living in stable housing that you own, rent, or stay in as part of a househo ? Yes - Living in stable housing. Are you worried or c oncerned that in the next 2 months you may NOT have stable housing that you own, rent, or st ay in as part of a household? No - Not worried about housing near [facility] In the past three months did you ever run out of food and you were not able to access more food or have the money to buy more food? No - No Food shortage /chris/ TOSHIA [place] Nurse Practitioner Resident Signed: 04/10/2020 12:19 /marcus Arteaga MSN, RN CLINICAL RESEARCH Nurse Practitioner Faculty Cosigned: 04/12/2020 09:23 04/12/2020 ADDENDUM STATUS: COMPLETED After verbal consent a focused history was obtai jennifer via telephone or VVC concurrently with resident a nd discussion of diagnosis and management held with the resident post call. I reviewed the residents note and agree with the documented findings and plan of care. /marcus Arteaga MSN, RN CLINICAL RESEARCH Nurse Practitioner Faculty Signed: 04/12/2020 09:24
--- OUTSIDE RECORDS SUMMARY | 2020-06-26 09:44 | XMS_ITS | Encounter Summary ---
:1945 Author Organization Department [facility] Address [address] [place] [id number] Care Team Providers Name Role Phone MANNY ARTEAGA Primary Care Provider Unavailable ANNIE PARRISH Unavailable Unavailable Insurance Providers: All historical and [...] Number Dhillon NICOLE PREFERRED BASIC May 17 [id number] [phone] OSCAR LITTLE P ATIENT BCBS OF [place] PROVIDER SELF 2002 [id number] AN (FEDERAL) ORGANIZAT ION (PPO) BCBS [place] PREFERRED BASIC May 17 [id number] [phone] OSCAR MACEDO PATIENT FEDERAL PROVIDER SELF 2002 22 4 AN ORGANIZAT ION (PPO) CAR[place]ARK-F PRESCRIPT BCBS May 17, [id number] [phone] FR OSCAR PASTRANA PATIENT EP BCBS ION FEP 2010 0 [id number] AN PLAN MEDICARE MEDICARE PART Jan 15, PART A [id number] OSCAR LITTLE PATIENT (WNR) (M) A 2008 HU83 2 AN Selected Encounter This section includes the information on record at [place] for the Encounter. Date/Time Encounter Type Encounter Reason Provider Source Description Apr 26, 2020 10:51 Outpatient PRIMARY TAVIA PARRISH AM Encounter CARE/MEDICINE [facility] Encounter Template Text not used by [facility] Plan of Treatment: Future Appointments (+ 6 months) and Future Tests (+/- 45 days) The Plan of Treatment section includes future care activities for the patient from all [place] treatment facilities. This section includes future appointments and future orders which are active, pending or scheduled.Future Appointments This section includes appointments that were scheduled to occur 6 months from the date of the Encounter, up to a maximum of 20 appointments. The data comes from all [facility]. Appointment Date/Time Appointment Type Appointment Facili ty Name May 02, 2020 01:30 PM AMBULATORY - [facility] Active, Pending, and Scheduled Orders This section includes a listing of several types of active, pending, and scheduled orders, including clinic medications orders, diagnostic test orders, procedure orders and consult orders; where the start date of the order is 45 days before the date of the Encounter or 45 days after the date of the Encounter. The data comes from all [place] treatment facilities. Test Date/Time Test Type Test Details Facility Name May 02, 2020 01:53 PM Laboratory - Chemistry PSA (ENTRY LEVEL PARALEGAL) [facility] Order BLOOD(GOLD) SERUM SP [facility] Lab Results: +/- 30 days of the [...] Interpretation Reference Range Comment May 02, 2020 [facility] LIPOPROTEIN Specimen Type: PLASMA 01:53 PM [facility] CHOLESTEROL FRACT. Comment: Lala wells performed on [employer] Yacht (405) PANEL Ordering Provide r: MANNY ARTEAGA Report Released Date/Time: Sep 12, 2019 11:58 AM Reporting [facility] [address] [facility] [place] [address] Performing Lab: [facility] [address] [facility] [address] CHOLESTEROL 194 mg/dL 0-199 TRIGLYCERIDE 166 mg/dL H 0-149 HDL CHOLESTEROL 39 mg/dL L >40 LDL CHOLESTEROL (CALC) 122 mg/dl 0-129 May 02, 2020 [facility] GLYCOHEMOGLOBIN (A1C Specimen Ty pe: BLOOD 01:53 PM [facility] ONLY) Comment: Tests performed on [employer] (405) Ordering Provide r: MANNY ARTEAGA Report Released Date/Time: Sep 12, 2019 11:58 AM Reporting Lab: [facility] [address] [facility] [address] Performing Lab: [facility] [address] [facility] [address] HEMOGLOBIN A1C 5.6 % 4.0-5.6 May 02, 2020 [facility] P4 GLU,BUN,CREAT,LYTES,CA Specim en Type: PLASMA 01:53 PM [facility] Comment: Tests performed on [employer] (405) Ordering Provide r: MANNY ARTEAGA Report Released Date/Time: Sep 12, 2019 11:58 AM Reporting Lab: [facility] [address] [facility] [address] Performing Lab: [facility] [address] [facility] [address] UREA NITROGEN 19 mg/dL 7-25 SODIUM 139 mmol/L 135-145 POTASSIUM 4.3 mmol/L 3.5-5.0 CHLORIDE 104 mmol/L 100-110 CARBON DIOXIDE 28 mmol/L 20-30 ANION GAP 7 mmol/L 4-16 GLUCOSE 93 mg/dL 65-100 CREATININE 1.22 mg/dl 0.5-1.5 CALCIUM 8.9 mg/dL 8.5-10.5 eGFR 58 mL/min L >60 May 02, 2020 01:53 [facility] CBC PROFILE Specimen Type : BLOOD PM [facility] No comment enter ed. Ordering Provide r: MANNY ARTEAGA Report Released Date/Time: Sep 12, 2019 11:58 AM Reporting Lab: [facility] [address] [facility] [address] Performing Lab: [facility] [address] [facility] [address] WBC 5.9 10*3/uL 4.5-11.0 RBC 5.04 10*6/uL [...] 0.00 10*3/uL 0-0 May 02, 2020 01:53 [facility] LIVER PROFILE Specimen Type : PLASMA PM [facility] Comment: Tests performed on [employer] (405) Ordering Provide r: MANNY ARTEAGA Report Released Date/Time: Sep 12, 2019 11:58 AM Reporting Lab: [facility] [address] [facility] [address] Performing Lab: [facility] [address] [facility] [address] PROTEIN, TOTAL 7.1 g/dL 6.0-8.5 ALBUMIN 3.9 g/dL 3.2-5.0 BILIRUBIN, TOTAL 0.7 mg/dL 0.2-1.2 ALKALINE PHOSPHATASE 82 U/L 40-150 ALT(SGPT) 27 U/L 7-52 AST(SGOT) 30 U/L 5-34 FIB-4 SCORE 1.82 INDEX <2.67 May 02, 2020 01:52 PM [facility] Spe cimen Type: SERUM Comment: Added by [id number] on May 02, 2020@20:09 Tests performed on [employer] (405) Ordering Provide r: ANNIE PARRISH Report Released Date/Time: Apr 10, 2020 12:14 PM Reporting Lab: [place] [facility] [address] [facility] [place] [address] Performing Lab: [place] [facility] [address] [facility] [place] [address] TSH 2.02 uIU/mL 0.35-5.00 May 02, 2020 01:52 PM [facility] VITAMIN B-12 Spe cimen Type: SERUM Comment: Added by [email or web address] on May 02, 2020@20:09 Tests performed on [employer] (405) Ordering Provide r: ANNIE PARRISH Report Released Date/Time: Apr 10, 2020 12:14 PM Reporting Lab: [place] [facility] [address] [facility] [place] [address] Performing Lab: [place] [facility] [address] [facility] [address] VITAMIN B-12 810 pg/mL 200-900 May 02, 2020 01:52 [facility] PSA (ENTRY LEVEL PARALEGAL) Specimen Type : SERUM [facility] Comment: Added by [id number] on May 02, 2020@20:09 Tests performed on [employer] (405) Ordering Provide r: ANNIE PARRISH Report Released Date/Time: Apr 10, 2020 12:14 PM Reporting Lab: [place] [facility] [address] [facility] [place] [address] Performing Lab: [place] [facility] [address] [facility] [place] [address] PSA (ENTRY LEVEL PARALEGAL) <0.10 ng/mL 0-4.0 Social History: Smoking Status (Most current) and Tobacco Use (All prior to encounter date) This section includes the most current, and the historical, smoking and tobacco-related health factors from the [place] facility where the Encounter took place.Current Smoking Status This section includes the most current smoking, or tobacco-related health factor, from the [place] facility where the Encounter took place. Date/Time Current Smoking Status Comment Facility Apr 09, 2020 11:00 AM VA-TOBACCO FORMER USER [place] [facility] Tobacco Use History This section includes a history of the smoking, or tobacco-related health factors, that were collected on or before the date of the Encounter. The data comes from the [place] facility where the Encounter took place. Date/Time Smoking Status/Tobacco Use Comment James edwardsy Apr 09, 2020 11:00 AM VA-TOBACCO QUIT 15 YRS OR MORE [facility] Jan 14, 2018 03:08 PM VA-TOBACCO FORMER USER [facility] Jan 14, 2018 03:08 PM VA-TOBACCO QUIT 15 YRS OR MORE [facility] Mar 16, 2017 09:08 AM QUIT TOBACCO USE > 7 YEARS AGO AD[facility] ARREOL[facility] quit 1983Mar 04, 2016 10:28 AM QUIT TOBACCO USE > 7 YEARS AGO AD[facility]A ARREOL[facility] Quit 1983Mar 10, 2005 10:47 AM HISTORY OF SMOKING [facility]ITE [facility] 1983Mar 31, 2004 09:26 AM HISTORY OF SMOKING WHITE R [facility] Mar 31, 2004 09:26 AM QUIT TOBACCO USE > 7 YEARS AGO ADITYA ARREOL[facility] Aug 22, 2001 01:30 PM HISTORY OF SMOKING [facility] Advance Directives: All historical and current Section Date Range: From patient's date of to the date document was created. This section includes ALL of a patient's completed or amended [place] Advance and Rescinded Directives. The entries below indicate that a directive exists for the patient, but an actual copy is not included with this document. The data comes from all [place] facilities. Date Advance Directives Provider Source Feb 23, 2014 ADVANCE DIRECTIVE EYAL MONTILLA ADITYA ARREOLA [facility] Encounter Notes: All associated encounter notes This section contains the clinical notes associated to the Encounter. Date/Time Encounter Note(s) Provider Source Apr 30, 2020 01:44 PM PRIMARY CARE SECURE MESSAGING: TAVIA PARRISH [facility] LOCAL TITLE: PRIMARY CARE SECURE MESSAGING [facility] STANDARD TITLE: PRIMARY CARE SECURE MESSAGING DATE OF NOTE: APR 30, 2020@13:44:36 ENTRY DATE: APR 30, 2020@13:44:37 AUTHOR: TAVIA PARRISH EXP COSIGNER: URGENCY: STATUS: COMPLETED ------Original Message Sent: 04/30/2020 12:47 PM From: KATHY LITTLE To: Tevin ARTEAGA_[email or web address] Subject: Seeking Alternate Lab I have an appointment with Elijah alegre. Thank you so very much for not giving up on me. Kathy ------Original Message Sent: 04/30/2020 01:43 PM From: TAVIA PARRISH To: KATHY LITTLE Subject: Seeking Alternate Lab Kathy, I have made Manny Arteaga NP and Annie jackson NP aware of your appointment time. Thank you for letting us know. Tavia Parrish, RN Team 6 Nurse /es/ TAVIA PARRISH MSN, RN Signed: 04/30/2020 13:44 Receipt Acknowledged By: * AWAITING SIGNATURE * ANNIE PARRISH * AWAITING SIGNATURE * MANNY ARTEAGA Apr 26, 2020 10:51 AM PRIMARY CARE SECURE MESSAGING: TAVIA PARRISH [facility] LOCAL TITLE: PRIMARY CARE SECURE MESSAGING [facility] STANDARD TITLE: PRIMARY CARE SECURE MESSAGING DATE OF NOTE: APR 26, 2020@10:51:34 ENTRY DATE: APR 26, 2020@10:51:34 AUTHOR: TAVIA PARRISH EXP COSIGNER: URGENCY: STATUS: COMPLETED PRIMARY CARE SECURE MESSAGING Has ADDENDA ------Original Message Sent: 04/26/2020 10:45 AM From: KATHY LITTLE To: Tevin ARTEAGA[facility]_GMFWRJ Subject: Seeking Alternate Lab I am writing to seek your he lp in finding a blood lab that is not as distant as [facility]. You know from your notes, I am often at risk even traveling to my local grocery store. I see two potential options: [facility] Lab is 1/2 mile from my home or [place] [facility]jah is 18 miles. Thank you Kathy Little [id number] ------Original Message Sent: 04/26/2020 10:51 AM From: TAVIA PARRISH To: KATHY LITTLE Subject: Seeking Alternate Lab Kathy, I have forwarded this request onto your provider and we will let you know a plan once discussed. Thanks, Tavia Parrish, RN Team 6 Nurse /chris/ TAVIA PARRISH MSN, RN Signed: 04/26/2020 10:51 Receipt Acknowledged By: 04/26/2020 16:51 /chris/ ANNIE PARRISH Nurse Practitioner Resident 04/26/2020 13:34 /chris/ Manny zapata MSN, PRODUCTION CONTROLLER Nurse Practitioner Faculty 04/29/2020 ADDENDUM STATUS: COMPLETED Stretcher Leveler Operator sent secure message to patient that provi ders are requesting follow-up with patient and labs can be drawn at this sched uled time. * Signing MSA on to schedule F2F per Joes Lo and Guilherme Arteaga NP for neuro assessment and lab work. Thank you. /chris/ TAVIA BABCOCK, RN Signed: 04/29/2020 09:48 Receipt Acknowledged By: * AWAITING SIGNATURE * ANNIE PARRISH 04/29/2020 10:34 /es/ DARLING VILLALOBOS * AWAITING SIGNATURE * MANNY ARTEAGA 04/29/2020 ADDENDUM STATUS: COMPLETED I called the patient , he re fused to schedule appt, trying to [facility] the [facility]. Wants to talk to his provider to ask why you think he needs to. Please call /chris/ DARLING VILLALOBOS Signed: 04/29/2020 10:34 Receipt Acknowledged By: * AWAITING SIGNATURE * ANNIE PARRISH * AWAITING SIGNATURE * MANNY ARTEAGA
--- OUTSIDE RECORDS SUMMARY | 2020-06-26 09:44 | XMS_ITS | Encounter Summary ---
:1945 Author Organization [facility] Address [address] [place] [address] Care Team Providers Name Role Phone MANNY [...] Number Dhillon NICOLE PREFERRED BASIC May 17 [id number] [phone] OSCAR LITTLE P ATIENT [place]BS [place] PROVIDER SELF 2002 [id number] AN (FEDERAL) ORGANIZAT ION (PPO) BCBS OF [place] PREFERRED BASIC May 17 [id number] [phone] OSCAR MACEDO PATIENT FEDERAL PROVIDER SELF 2002 22 4 AN ORGANIZAT ION (PPO) [place]-F PRESCRIPT BCBS May 17, [id number] [phone] FR OSCAR PASTRANA PATIENT EP BCBS ION FEP 2010 0 [id number] AN PLAN MEDICARE MEDICARE PART Jan 15, PART A [id number] OSCAR LITTLE PATIENT (WNR) (M) A 2008 [id number] 2 AN Selected Encounter This section includes the information on record at VA for the Encounter. Date/Time Encounter Type Encounter Description Reason Provider Source Apr 10, 2020 12:00 Outpatient Encounter EVENT (HISTORICAL) AM [facility] Encounter Template Text not used by VA Plan of Treatment: Future Appointments (+ 6 months) and Future Tests (+/- 45 days) The Plan of Treatment section includes future care activities for the patient from all [place] treatment facilities. This section includes future appointments and future orders which are active, pending or scheduled.Future Appointments This section includes appointments that were scheduled to occur 6 months from the date of the Encounter, up to a maximum of 20 appointments. The data comes from all [facility]. Appointment Date/Time Appointment Type Appointment Facili ty Name May 02, 2020 01:30 PM AMBULATORY - [facility] Active, Pending, and Scheduled [...] the Encounter. The data comes from all [place] treatment facilities. Test Date/Time Test Type Test Details Facility Name May 02, 2020 01:53 PM Laboratory - Chemistry PSA (MULTISKILL OPERATOR) [facility] Order BLOOD(GOLD) SERUM SP [facility] Lab Results: +/- 30 days of the encounter This section includes the Chemistry and Hematology Lab Results on record with [place] for the patient. Radiology Reports and Pathology Reports are provided separately, in subsequent sections.Lab Results This section contains the Chemistry/Hematology Results that were resulted 30 days before or 30 days after the date of the Encounter. Date/Time Source Result Type Result - Unit Interpretation Reference Range Comment May 02, 2020 [facility] LIPOPROTEIN Specimen Type: PLASMA 01:53 PM [facility] CHOLESTEROL FRACT. Comment: Lala ts performed on [employer] (405) PANEL Ordering Provide r: MANNY ARTEAGA Report Released Date/Time: Sep 12, 2019 11:58 AM Reporting Lab: [place] [facility] [address] [facility] [place] [address] Performing Lab: [place] [facility] [address] [facility] [address] CHOLESTEROL 194 mg/dL 0-199 TRIGLYCERIDE 166 mg/dL H 0-149 HDL CHOLESTEROL 39 mg/dL L >40 LDL CHOLESTEROL (CALC) 122 mg/dl 0-129 May 02, 2020 [facility] GLYCOHEMOGLOBIN (A1C Specimen Ty pe: BLOOD 01:53 PM [facility] Comment: Tests performed on [employer] (405) Ordering Provide r: MANNY ARTEAGA Report Released Date/Time: Sep 12, 2019 11:58 AM Reporting [facility] [address] [facility] [address] Performing Lab: [facility] [address] [facility] [address] HEMOGLOBIN A1C 5.6 % 4.0-5.6 May 02, 2020 [facility] P4 GLU,BUN,CREAT,LYTES,CA Specim en Type: PLASMA 01:53 PM [facility] Comment: Tests performed on [employer] (405) Ordering Provide r: MANNY ARTEAGA Report Released Date/Time: Sep 12, 2019 11:58 AM Reporting [facility] [address] [facility] [address] Performing Lab: [facility] [address] [facility] [address] UREA NITROGEN 19 mg/dL 7-25 SODIUM 139 mmol/L 135-145 POTASSIUM 4.3 mmol/L 3.5-5.0 CHLORIDE 104 mmol/L 100-110 CARBON DIOXIDE 28 mmol/L 20-30 ANION GAP 7 mmol/L 4-16 GLUCOSE 93 mg/dL 65-100 CREATININE 1.22 mg/dl 0.5-1.5 CALCIUM 8.9 mg/dL 8.5-10.5 eGFR 58 mL/min L >60 May 02, 2020 01:53 [facility] CBC PROFILE Specimen Type : BLOOD PM [facility] No comment enter ed. Ordering Provide r: MANNY ARTEAGA Report Released Date/Time: Sep 12, 2019 11:58 AM Reporting Lab: [facility] [address] [facility] [address] Performing Lab: [facility] [address] [facility] [address] WBC 5.9 10*3/uL 4.5-11.0 RBC 5.04 10*6/uL [...] 0.00 10*3/uL 0-0 May 02, 2020 01:53 [facility] LIVER PROFILE Specimen Type : PLASMA PM [facility] Comment: Tests performed on [employer]agomart (405) Ordering Provide r: MANNY ARTEAGA Report Released Date/Time: Sep 12, 2019 11:58 AM Reporting Lab: [facility] [address] [facility] [address] Performing Lab: [facility] [address] [facility] [address] PROTEIN, TOTAL 7.1 g/dL 6.0-8.5 ALBUMIN 3.9 g/dL 3.2-5.0 BILIRUBIN, TOTAL 0.7 mg/dL 0.2-1.2 ALKALINE PHOSPHATASE 82 U/L 40-150 ALT(SGPT) 27 U/L 7-52 AST(SGOT) 30 U/L 5-34 FIB-4 SCORE 1.82 INDEX <2.67 May 02, 2020 01:52 [facility] Spe cimen Type: SERUM Comment: Added by [id number] on May 02, 2020@20:09 Tests performed on [employer] (405) Ordering Provide r: TOSHIA [place] Report Released Date/Time: Apr 10, 2020 12:14 PM Reporting Lab: [place] [facility] [address] [facility] [place] [address] Performing Lab: [place] [facility] [address] [facility] [place] [address] TSH 2.02 uIU/mL 0.35-5.00 May 02, 2020 01:52 PM [facility] VIT[facility] B-12 Spe cimen Type: SERUM Comment: Added by [id number] on May 02, 2020@20:09 Tests performed on [employer] (405) Ordering Provide r: TOSHIA OH Report Released Date/Time: Apr 10, 2020 12:14 PM Reporting Lab: [place] [facility] [address] [facility] [place] [address] Performing Lab: [place] [facility] [address] [facility] [address] VITAMIN B-12 810 pg/mL 200-900 May 02, 2020 01:52 [facility] PSA (MULTISKILL OPERATOR) Specimen Type : [facility] Comment: Added by [email or web address] on May 02, 2020@20:09 Tests performed on [employer] (405) Ordering Provide r: TOSHIA [place] Report Released Date/Time: Apr 10, 2020 12:14 PM Reporting Lab: [place] [facility] [address] [facility] [place] [address] Performing Lab: [place] [facility] [address] [facility] [place] [address] PSA (MULTISKILL OPERATOR) <0.10 ng/mL 0-4.0 Social History: Smoking Status (Most current) and Tobacco Use (All prior to encounter date) This section includes the most current, and the historical, smoking and tobacco-related health factors from the [place] facility where the Encounter took place.Current Smoking Status This section includes the most current smoking, or tobacco-related health factor, from the [place] facility where the Encounter took place. Date/Time Current Smoking Status Comment Facility Apr 09, 2020 11:00 AM VA-TOBACCO [facility] [facility] [facility] Tobacco Use History This section includes a history of the smoking, or tobacco-related health factors, that were collected on or before the date of the Encounter. The data comes from the [place] facility where the Encounter took place. Date/Time Smoking Status/Tobacco Use Comment [facility] diana Apr 09, 2020 11:00 AM VA-TOBACCO QUIT 15 YRS OR MORE ADITYA ARREOL[facility] Jan 14, 2018 03:08 PM VA-TOBACCO FORMER USER [facility] Jan 14, 2018 03:08 PM VA-TOBACCO QUIT 15 YRS OR MORE ADITYA ARREOLA [facility] Mar 16, 2017 09:08 AM QUIT TOBACCO USE > 7 YEARS AGO ADITYA ARREOLA [facility] quit 1983Mar 04, 2016 10:28 AM QUIT TOBACCO USE > 7 YEARS AGO ADITYA ARREOLA [facility] Quit 1983Mar 10, 2005 10:47 AM HISTORY OF SMOKING [facility] 1983Mar 31, 2004 09:26 AM HISTORY OF SMOKING WHITE R [facility]ER T [facility] Mar 31, 2004 09:26 AM QUIT TOBACCO USE > 7 YEARS AGO ADITYA ARREOLA [facility] Aug 22, 2001 01:30 PM HISTORY OF SMOKING WHITE Gato POLO [facility] Advance Directives: All historical and current Section Date Range: From patient's date of to the date document was created. This section includes ALL of a patient's completed or amended VA Advance and Rescinded Directives. The entries below indicate that a directive exists for the patient, but an actual copy is not included with this document. The data comes from all [place] facilities. Date Advance Directives Provider Source Feb 23, 2014 ADVANCE DIRECTIVE EYAL MONTILLA [facility]
--- OUTSIDE RECORDS SUMMARY | 2020-06-26 09:44 | XMS_ITS ---
:1945 Author Organization [facility] rs Address [address] [place] [id number] Care Team Providers Name Role Phone CHANDLER MANNY Primary Care Provider Unavailable TOSHIA [place] Unavailable [...] Coverage Telephone Name to Policy Number Dhillon ANTHEM PREFERRED BASIC May 17 [id number] [phone] OSCAR LITTLE P ATIENT [place] PROVIDER SELF 2002 [id number] AN (FEDERAL) ORGANIZAT ION (PPO) [place] PREFERRED BASIC May 17 [id number] [phone] OSCAR MACEDO PATIENT FEDERAL PROVIDER SELF 2002 22 4 AN ORGANIZAT ION (PPO) [place]-F PRESCRIPT BCBS May 17, [id number] [phone] ZEINAOSCAR PATIENT EP BCBS ION FEP 2010 0 [id number] AN PLAN MEDICARE MEDICARE PART Jan 15, PART A [id number] OSCAR LITTLE PATIENT (WNR) (M) A 2008 [id number] 2 AN Selected Encounter This section includes the [facility]. Date/Time Encounter Type Encounter Description Reason Provider Source Mar 13, 2020 03:09 Outpatient Encounter ADMIN PAT ACTIVTIES PM (MASNONCT) IHE Encounter Template Text not used by CT Plan of Treatment: Future Appointments (+ 6 months) and Future Tests (+/- 45 days) The Plan of Treatment section includes future care activities for the patient from all CT treatment facilities. This section includes future appointments and future orders which are active, pending or scheduled.Future Appointments This section includes appointments that were scheduled to occur 6 months from the date of the Encounter, up to a maximum of 20 appointments. [facility] Appointment Date/Time Appointment Type Appointment Facili ty Name Apr 09, 2020 11:00 AM AMBULATORY - NONE [facility] May 02, 2020 01:30 PM AMBULATORY - NONE [facility] Social History: Smoking Status (Most current) and Tobacco Use (All prior to encounter date) This section includes the most current, and the historical, smoking and tobacco-related health factors from the CT facility where the Encounter took place.Current Smoking Status This section includes the most current smoking, or tobacco-related health factor, from the CT facility where the Encounter took place. Date/Time Current Smoking Status Comment Facility Jan 14, 2018 03:08 PM VA-TOBACCO FORMER USER [facility] Tobacco Use History This section includes a history of the smoking, or tobacco-related health factors, that were collected on or before the date of the Encounter. The data comes from the CT facility where the Encounter took place. Date/Time Smoking Status/Tobacco Use Comment [facility] Jan 14, 2018 03:08 PM VA-TOBACCO QUIT 15 YRS OR MORE [facility] Mar 16, 2017 09:08 AM QUIT TOBACCO USE > 7 YEARS AGO [facility] quit 1983Mar 04, 2016 10:28 AM QUIT TOBACCO USE > 7 YEARS AGO [facility] Quit 1983Mar 10, 2005 10:47 AM HISTORY OF SMOKING WHITE R IVER [facility] 1983Mar 31, 2004 09:26 AM HISTORY OF SMOKING WHITE R IVER [facility] Mar 31, 2004 09:26 AM QUIT TOBACCO USE > 7 YEARS AGO [facility] Aug 22, 2001 01:30 PM HISTORY OF SMOKING WHITE R IVER [facility] Advance Directives: All historical and current Section Date Range: From patient's date of to the date document was created. This section includes ALL of a patient's completed or amended [facility] Advance and Rescinded Directives. The entries below indicate that a directive exists for the patient, but an actual copy is not included with this document. The data comes from all CT facilities. Date Advance Directives Provider Source Feb 23, 2014 ADVANCE DIRECTIVE EYAL MONTILLA [facility] Encounter Notes: All associated encounter notes This section contains the clinical notes associated to the Encounter. Date/Time Encounter Note(s) Provider Source Mar 13, 2020 03:09 PM PRIMARY CARE ADMINISTRATIVE NOTE: DARLING VILLALOBOS LOCAL TITLE: Administrative Note/Primary Care [facility] STANDARD TITLE: PRIMARY CARE ADMINISTRATIVE NOTE DATE OF NOTE: MAR 13, 2020@15:09 ENTRY DATE: MAR 13, 2020@15:09:42 AUTHOR: DARLING VILLALOBOS EXP COSIGNER: URGENCY: STATUS: COMPLETED Attempted to call the patient to schedule f2f ap pt with Res [employer] 3, the phone rings 5 times then goes to f ast busy signal. Will send letter to request he call . /chris/ DARLING VILLALOBOS Signed: 03/13/2020 15:10
--- OUTSIDE RECORDS SUMMARY | 2020-06-26 09:45 | XMS_ITS | Encounter Summary ---
:1945 Author Organization [facility] Address [address] [place] [id number] Care Team Providers Name Role Phone MANNY [...] Number Dhillon NICOLE PREFERRED BASIC May 17 [id number] [phone] OSCAR LITTLE P ATIENT [place]BS [place] PROVIDER SELF 2002 22 [id number] AN (FEDERAL) ORGANIZAT ION (PPO) [place]BS [place] PREFERRED BASIC May 17 [id number] [phone] OSCAR MACEDO PATIENT FEDERAL PROVIDER SELF 2002 22 4 AN ORGANIZAT ION (PPO) [place]-F PRESCRIPT BCBS May 17, [id number] [phone] OSCAR PASTRANA PATIENT EP BCBS ION FEP 2010 0 [id number] AN PLAN MEDICARE MEDICARE PART Jan 15, PART A [id number] OSCAR LITTLE PATIENT (WNR) (M) A 2008 [id number] 2 AN Selected Encounter This section includes the information on record at [facility] for the Encounter. Date/Time Encounter Type Encounter Description Reason Provider Source Jan 26, 2020 12:00 Outpatient Encounter EVENT (HISTORICAL) AM IHE Encounter Template Text not used by [facility] Plan of Treatment: Future Appointments (+ 6 months) and Future Tests (+/- 45 days) The Plan of Treatment section includes future care activities for the patient from all [place] treatment facilities. This section includes future appointments and future orders which are active, pending or scheduled.Future Appointments This section includes appointments that were scheduled to occur 6 months from the date of the Encounter, up to a maximum of 20 appointments. The [facility] Appointment Date/Time Appointment Type Appointment Facili ty Name Apr 09, 2020 11:00 AM AMBULATORY - NONE [facility] May 02, 2020 01:30 PM AMBULATORY - NONE [facility] Immunizations: All administered on the encounter date This section contains immunizations associated to the Encounter. Immunization Series Date Issued Reaction Comments INFLUENZA, SEASONAL, Jan 26, 2020 Partner : [facility]. INJECTABLE, PRESERVATIVE Adm [facility] t (NPI=Not Provided). Part ner Lot#: [id number] Mfr: SEQIRUS INFLUENZA, UNSPECIFIED Jan 26, 2020 FORMULATION Social History: Smoking Status (Most current) and Tobacco Use (All prior to encounter date) This section includes the most current, and the historical, smoking and tobacco-related health factors from the [place] facility where the Encounter took place.Current Smoking Status This section includes the most current smoking, or tobacco-related health factor, from the [place] facility where the Encounter took place. Date/Time Current Smoking Status Comment Facility Jan 14, 2018 03:08 PM VA-TOBACCO FORMER USER [facility] Tobacco Use History This section includes a history of the smoking, or tobacco-related health factors, that were collected on or before the date of the Encounter. The data comes from the [place] facility where the Encounter took place. Date/Time Smoking Status/Tobacco Use Comment Facil ity Jan 14, 2018 03:08 PM HI-TOBACCO QUIT 15 YRS OR MORE [facility] Mar 16, 2017 09:08 AM QUIT TOBACCO USE > 7 YEARS AGO [facility] quit 1983Mar 04, 2016 10:28 AM QUIT TOBACCO USE > 7 YEARS AGO [facility] Quit 1983Mar 10, 2005 10:47 AM HISTORY OF SMOKING ADITYA [facility] 1983Mar 31, 2004 09:26 AM HISTORY OF SMOKING ADITYA [facility] Mar 31, 2004 09:26 AM QUIT TOBACCO USE > 7 YEARS AGO [facility] Aug 22, 2001 01:30 PM HISTORY OF SMOKING ADITYA [facility] Advance Directives: All historical and current Section Date Range: From patient's date of to the date document was created. This section includes ALL of a patient's completed or amended VA Advance and Rescinded Directives. The entries below indicate that a directive exists for the patient, but an actual copy is not included with this document. The data comes from all [place] facilities. Date Advance Directives Provider Source Feb 23, 2014 ADVANCE DIRECTIVE EYAL MONTILLA [facility]
--- OUTSIDE RECORDS SUMMARY | 2020-06-26 09:45 | XMS_ITS ---
:1945 Author Organization [facility] Address [address] [place] [id number] Care Team Providers Name Role Phone MANNY [...] Number Dhillon NICOLE PREFERRED BASIC May 17 [id number] [phone] OSCAR LITTLE P ATIENT [place] PROVIDER SELF 2002 22 [id number] AN (FEDERAL) ORGANIZAT ION (PPO) [place] PREFERRED BASIC May 17 [id number] [phone] OSCAR MACEDO PATIENT FEDERAL PROVIDER SELF 2002 22 4 AN ORGANIZAT ION (PPO) [place]-F PRESCRIPT BCBS May 17, [id number] [phone] FR OSCAR PASTRANA PATIENT EP BCBS ION FEP 2010 0 [id number] 331 AN PLAN MEDICARE MEDICARE PART Jan 15, PART A [id number] OSCAR LITTLE PATIENT (WNR) (M) A 2008 [id number] 2 AN Selected Encounter This section includes the information on record at [facility] for the Encounter. Date/Time Encounter Type Encounter Reason Provider Source Description Feb 08, 2020 08:08 Outpatient PRIMARY LUCITA GIL AM Encounter CARE/MEDICINE EE IHE Encounter Template Text not used by [facility] Plan of Treatment: Future Appointments (+ 6 months) and Future Tests (+/- 45 days) The Plan of Treatment section includes future care activities for the patient from all [place] treatment facilities. This section includes future appointments and future orders which are active, pending or scheduled.Future Appointments This section includes appointments that were scheduled to occur 6 months from the date of the Encounter, up to a maximum of 20 appointments. The [facility] Appointment Date/Time Appointment Type Appointment Facili ty Name Apr 09, 2020 11:00 AM AMBULATORY - NONE [facility] May 02, 2020 01:30 PM AMBULATORY - NONE [facility] Social History: Smoking Status (Most current) and Tobacco Use (All prior to encounter date) This section includes the most current, and the historical, smoking and tobacco-related health factors from the [place] facility where the Encounter took place.Current Smoking Status This section includes the most current smoking, or tobacco-related health factor, from the [place] facility where the Encounter took place. Date/Time Current Smoking Status Comment Facility Jan 14, 2018 03:08 PM VA-TOBACCO FORMER USER [facility] Tobacco Use History This section includes a history of the smoking, or tobacco-related health factors, that were collected on or before the date of the Encounter. The data comes from the [place] facility where the Encounter took place. Date/Time Smoking Status/Tobacco Use Comment [facility] Jan 14, 2018 03:08 PM VA-TOBACCO QUIT 15 YRS OR MORE [facility] Mar 16, 2017 09:08 AM QUIT TOBACCO USE > 7 YEARS AGO [facility] quit 1983Mar 04, 2016 10:28 AM QUIT TOBACCO USE > 7 YEARS AGO [facility] Quit 1983Mar 10, 2005 10:47 AM HISTORY OF SMOKING WHITE R [facility] 1983Mar 31, 2004 09:26 AM HISTORY OF SMOKING WHITE R IVER [facility] Mar 31, 2004 09:26 AM QUIT TOBACCO USE > 7 YEARS AGO [facility] Aug 22, 2001 01:30 PM HISTORY OF SMOKING WHITE R IVER [facility] Advance Directives: All historical and current Section Date Range: From patient's date of to the date document was created. This section includes ALL of a patient's completed or amended VA Advance and Rescinded Directives. The entries below indicate that a directive exists for the patient, but an actual copy is not included with this document. The data comes from all [place] facilities. Date Advance Directives Provider Source Feb 23, 2014 ADVANCE DIRECTIVE EYAL MONTILLA [facility] Encounter Notes: All associated encounter notes This section contains the clinical notes associated to the Encounter. Date/Time Encounter Note(s) Provider Source Feb 08, 2020 08:08 AM PRIMARY CARE SECURE MESSAGING: Jhoan GILT LOCAL TITLE: PRIMARY CARE SECURE MESSAGING [facility] STANDARD TITLE: PRIMARY CARE SECURE MESSAGING DATE OF NOTE: FEB 08, 2020@08:08:12 ENTRY DATE: FEB 08, 2020@09:08:12 AUTHOR: NURA GIL EXP COSIGNER: URGENCY: STATUS: COMPLETED PRIMARY CARE SECURE MESSAGING Has ADDENDA ------Original Message Sent: 02/07/2020 06:07 PM From: KATHY LITTLE To: Tevin [email or web address] Subject: Simvastatin Please issue a new authorization to [facility] for a fill plus 3 of Simvastatin. Thank you Kathy Little [id number] /chris/ Nura Gil REGIONAL DIRECTOR Signed: 02/08/2020 09:08 Receipt Acknowledged By: 02/12/2020 09:56 /chris/ TOSHIA [place] Nurse Practitioner Resident 02/09/2020 15:29 /chris/ Manny zapata MSN, ELEMENTARY SCIENCE TEACHER Nurse Practitioner Faculty 02/09/2020 ADDENDUM STATUS: COMPLETED Manny can you please help with this? /chris/ TOSHIA [place] Nurse Practitioner Resident Signed: 02/09/2020 15:26 /marcus Arteaga MSN, ELEMENTARY SCIENCE TEACHER Nurse Practitioner Faculty Cosigned: 02/09/2020 15:31
--- OUTSIDE RECORDS SUMMARY | 2020-06-26 09:45 | XMS_ITS ---
:[address] [facility] Address [address] [place] [id number] Care Team Providers Name Role Phone MANNY [...] Number Dhillon NICOLE PREFERRED BASIC May 17 [id number] [phone] OSCAR LITTLE P ATIENT [place] PROVIDER SELF [phone] AN (FEDERAL) ORGANIZAT ION (PPO) [place] PREFERRED BASIC May 17 [id number] [phone] OSCAR MACEDO PATIENT FEDERAL PROVIDER SELF 2002 22 4 AN ORGANIZAT ION (PPO) CAREMARK-F PRESCRIPT BCBS May 17 [id number] [phone] ZEINAOSCAR PATIENT EP BCBS ION FEP 2010 [id number] AN PLAN MEDICARE MEDICARE PART Jan 15 PART A [id number] [phone] SIDNEY OSCAR PATIENT (WNR) (M) A 2008 [id number] 2 AN Selected Encounter This section includes the information on record at [facility] for the Encounter. Date/Time Encounter Type Encounter Reason Provider Source Description Apr 08, 2020 01:42 Outpatient TELEPHONE TRIAGE ARON EVANS PM Encounter E L IHE Encounter Template Text not used by [facility] Plan of Treatment: Future Appointments (+ 6 months) and Future Tests (+/- 45 days) The Plan of Treatment section includes future care activities for the patient from all [place] treatment facilities. This section includes future appointments and future orders which are active, pending or scheduled.Future Appointments This section includes appointments that were scheduled to occur 6 months from the date of the Encounter, up to a maximum of 20 appointments. The data comes from all [facility]. Appointment Date/Time Appointment Type Appointment Facili ty Name Apr 09, 2020 11:00 AM AMBULATORY - NONE [facility] May 02, 2020 01:30 PM AMBULATORY - NONE [facility] Active, Pending, and Scheduled [...] the Encounter. The data comes from all [place] treatment facilities. Test Date/Time Test Type Test Details Facility Name May 02, 2020 01:53 PM Laboratory - Chemistry PSA (RETAIL DEPARTMENT RESET) [facility] Order BLOOD(GOLD) SERUM SP [facility] Lab Results: +/- 30 days of the [...] Interpretation Reference Range Comment May 02, 2020 [facility] LIPOPROTEIN Specimen Type: PLASMA 01:53 PM [facility] CHOLESTEROL FRACT. Comment: Lala wells performed on [employer] Maker (405) PANEL Ordering Provide r: MANNY ARTEAGA Report Released Date/Time: Sep 12, 2019 11:58 AM Reporting Lab: [facility] [address] [facility] [address] Performing Lab: [facility] [address] [facility] [address] CHOLESTEROL 194 mg/dL 0-199 TRIGLYCERIDE 166 mg/dL H 0-149 HDL CHOLESTEROL 39 mg/dL L >40 LDL CHOLESTEROL (CALC) 122 mg/dl 0-129 May 02, 2020 [facility] GLYCOHEMOGLOBIN (A1C Specimen Ty pe: BLOOD 01:53 PM [facility] ONLY) Comment: Tests performed on [employer] (405) Ordering Provide r: MANNY ARTEAGA Report Released Date/Time: Sep 12, 2019 11:58 AM Reporting Lab: [facility] [address] [facility] [address] Performing [facility] [address] [facility] [address] HEMOGLOBIN A1C 5.6 % 4.0-5.6 May 02, 2020 [facility] P4 GLU,BUN,CREAT,LYTES,CA Specim en Type: PLASMA 01:53 PM [facility] Comment: Tests performed on [employer] (405) Ordering Provide r: MANNY ARTEAGA Report Released Date/Time: Sep 12, 2019 11:58 AM Reporting Lab[facility] [address] [facility] [address] Performing Lab: [facility] [address] [facility] [address] UREA NITROGEN 19 mg/dL 7-25 SODIUM 139 mmol/L 135-145 POTASSIUM 4.3 mmol/L 3.5-5.0 CHLORIDE 104 mmol/L 100-110 CARBON DIOXIDE 28 mmol/L 20-30 ANION GAP 7 mmol/L 4-16 GLUCOSE 93 mg/dL 65-100 CREATININE 1.22 mg/dl 0.5-1.5 CALCIUM 8.9 mg/dL 8.5-10.5 eGFR 58 mL/min L >60 May 02, 2020 01:53 [facility] CBC PROFILE Specimen Type : BLOOD PM [facility] No comment enter ed. Ordering Provide r: MANNY ARTEAGA Report Released Date/Time: Sep 12, 2019 11:58 AM Reporting Lab: [place] [facility] [address] [facility] [address] Performing Lab: [facility] [address] [facility] [address] WBC 5.9 10*3/uL 4.5-11.0 RBC 5.04 10*6/uL [...] 0.00 10*3/uL 0-0 May 02, 2020 01:53 [facility] LIVER PROFILE Specimen Type : PLASMA PM [facility] Comment: Tests performed on [employer] (405) Ordering Provide r: MANNY ARTEAGA Report Released Date/Time: Sep 12, 2019 11:58 AM Reporting Lab: [facility] [address] [facility] [address] Performing Lab: [facility] [address] [facility] [address] PROTEIN, TOTAL 7.1 g/dL 6.0-8.5 ALBUMIN 3.9 g/dL 3.2-5.0 BILIRUBIN, TOTAL 0.7 mg/dL 0.2-1.2 ALKALINE PHOSPHATASE 82 U/L 40-150 ALT(SGPT) 27 U/L 7-52 AST(SGOT) 30 U/L 5-34 FIB-4 SCORE 1.82 INDEX <2.67 May 02, 2020 01:[address] [facility] TSH Spe cimen Type: SERUM Comment: Added by [id number] on May 02, 2020@20:09 Tests performed on [employer] (405) Ordering Provide r: TOSHIA OH Report Released Date/Time: Apr 10, 2020 12:14 PM Reporting Lab: [place] [facility] [address] [facility] [place] [address] Performing Lab: [place] [facility] [address] [facility] [place] [address] TSH 2.02 uIU/mL 0.35-5.00 May 02, 2020 01:52 PM [place] [facility] VITAMIN B-12 Spe cimen Type: SERUM Comment: Added by [id number] on May 02, 2020@20:09 Tests performed on [employer] (405) Ordering Provide r: TOSHIA OH Report Released Date/Time: Apr 10, 2020 12:14 PM Reporting Lab: [place] [facility] [address] [facility] [address] [facility] [place] [address] Performing Lab: [place] [facility] [address] [facility] [place] [address] VITAMIN B-12 810 pg/mL 200-900 May 02, 2020 01:52 [facility] PSA (RETAIL DEPARTMENT RESET) Specimen Type : SERUM PM [facility] Comment: Added by [id number] on May 02, 2020@20:09 Tests performed on [employer] (405) Ordering Provide r: TOSHIA OH Report Released Date/Time: Apr 10, 2020 12:14 PM Reporting Lab: [place] [facility] [address] [facility] [place] [address] Performing Lab: [place] [facility] [address] [facility] [address] PSA (RETAIL DEPARTMENT RESET) <0.10 ng/mL 0-4.0 Social History: Smoking Status (Most current) and Tobacco Use (All prior to encounter date) This section includes the most current, and the historical, smoking and tobacco-related health factors from the [place] facility where the Encounter took place.Current Smoking Status This section includes the most current smoking, or tobacco-related health factor, from the [place] facility where the Encounter took place. Date/Time Current Smoking Status Comment Facility Jan 14, 2018 03:08 PM VA-TOBACCO FORMER USER [place] [place] [facility] Tobacco Use History This section includes a history of the smoking, or tobacco-related health factors, that were collected on or before the date of the Encounter. The data comes from the [place] facility where the Encounter took place. Date/Time Smoking Status/Tobacco Use Comment James ortiz Jan 14, 2018 03:08 PM VA-TOBACCO QUIT 15 YRS OR MORE ADITYA ARREOLA [facility] Mar 16, 2017 09:08 AM QUIT TOBACCO USE > 7 YEARS AGO ADITYA ARREOLA T [facility] quit 1983Mar 04, 2016 10:28 AM QUIT TOBACCO USE > 7 YEARS AGO ADITYA ARREOLA T [facility] Quit 1983Mar 10, 2005 10:47 AM HISTORY OF SMOKING WHITE R LANAER T [facility] 1983Mar 31, 2004 09:26 AM HISTORY OF SMOKING WHITE R IVER [place] [facility] Mar 31, 2004 09:26 AM QUIT TOBACCO USE > 7 YEARS AGO ADITYA ARREOLA T [facility] Aug 22, 2001 01:30 PM HISTORY OF SMOKING WHITE R IVER [facility] Advance Directives: All historical and current Section Date Range: From patient's date of to the date document was created. This section includes ALL of a patient's completed or amended [facility] Advance and Rescinded Directives. The entries below indicate that a directive exists for the patient, but an actual copy is not included with this document. The data comes from all [place] facilities. Date Advance Directives Provider Source Feb 23, 2014 ADVANCE DIRECTIVE EYAL MONTILLA [facility] Encounter Notes: All associated encounter notes This section contains the clinical notes associated to the Encounter. Date/Time Encounter Note(s) Provider Source Apr 08, 2020 01:42 PM TELEPHONE ENCOUNTER NOTE: GENESSI EVANS [facility] LOCAL TITLE: [facility] 1 CLINICAL CONTACT CENTER [facility] STANDARD TITLE: TELEPHONE ENCOUNTER NOTE DATE OF NOTE: APR 08, 2020@13:42:14 ENTRY DATE: APR 08, 2020@13:48:05 AUTHOR: PADMINI EVANS EXP COSIGNER: URGENCY: STATUS: COMPLETED [facility] 1 CLINICAL CONTACT CENTER Has ADDEND A Type of call: SYMPTOM. Caller Response: *AGREE The patient, KATHY LITTLE ([id number]) Phone: called the call center. Comments: PT called c/o runny nose and other nasal problem s. PT has an appt (f2f) with his provider tomorrow. PT is asking should he come in or not. Please call the PT Evaluation/Management Code: HC PRO PHONE CALL 5- 10 MIN ([phone]). Original call started at: APR 08, 2020 @ 13:38 ( Call was suspended) - GIANNA MARKHAM APR 08, 2020@13:38:38 - APR 08, 2020@13:41:45 Ending at: 04/08/2020 @ 1:47:30 PM Length: 8 minutes. (Call was suspended. This call length is the total amount of time spent active in [employer] Record Management Trainee.) Author: PADMINI EVANS Caller Area: * [facility] Chief Complaint: Nasal Congestion Triage Note Phone Triage Mon Apr 08 2020 13:43:53 GMT-0500 (Eastern Stand jerrod Time) Demographics 75 y/o Male Results CC: Nasal Congestion Nurse Recommendation: Self-care TEDP Suggestion: Self-care Nurse Recommended Follow-up Location: Clinic , [place] TEDP Suggested Follow-up Location: Home Values and Measures Temperature: 97.6 Fahrenheit Pain scale: denies pain Duration of CC: 2 Days Negative Responses Denies: HPI: breathing more rapidly than usu al Denies: HPI: cough, new or worsening Denies: HPI: eye pruritus, eye tearing Denies: HPI: fever, subjective Denies: HPI: headache Denies: HPI: myalgias Denies: HPI: nasal congestion, duration long er than 2 days Denies: HPI: pain, maxillary or frontal sinu ses Denies: HPI: rhinorrhea, yellow or brown Denies: HPI: sneezing, episodic attacks Denies: HPI: sore throat Denies: HPI: symptoms similar to past allerg ic rhinitis Denies: HPI: vomiting Denies: HPI: weakness, fatigue, more than us ual Denies: HPI: wheezing, new or worsening Denies: MEDS: antibiotic [place] Education Verbal Education Provided for: Upper Respiratory Infections Home Care Upper Respiratory Infections Home Care C ongestion Upper Respiratory Infections Home Care C ough Upper Respiratory Infections Home Care F ever Upper Respiratory Infections Home Care S ore Throat Upper Respiratory Infections Home Care W arning Signs Upper Respiratory Infections Home Care W tai Nurse Notes: reports runny nose for 2 days. He report s he feels fine otherwise and does not have a fever. He mckeon s an appointment tomorrow and wants to make sure it is ok to come to the clinic with a runny nose. Danish santos has not been around anyone who is known to be sick. Class Code: Nasal Congestion. Contact Patient's Email Address: [email or web address] /es/ PADMINI EVANS Clinical Contact Center re examiner Signed: 04/08/2020 13:48 Receipt Acknowledged By: 04/08/2020 14:05 /es/ Manny zapata MSN, DOPEMAN Nurse Practitioner Faculty 04/08/2020 15:04 /es/ ZULEMA COLLADO Registered Nurse 04/08/2020 14:11 /es/ TOSHIA OH Nurse Practitioner Resident 04/08/2020 ADDENDUM STATUS: COMPLETED Given symptoms, it would be best to change patient to a virtual visit. Discussed with PCP, will offer patient COVID clinic today if an appt is available. Phoned patient, he confirms above triage. He is agreeab le to an appt in COVID/Flu clinic. He is also agreeable to switching appt w ith PCP tomorrow to a VVC. Adding MSAs to assist in scheduling i n COVID/flu clinic. Pt is VVC capable. /es/ ZULEMA GLASGOW Registered Nurse Signed: 04/08/2020 14:16 Receipt Acknowledged By: * AWAITING SIGNATURE * LUZ BUTTERFIELD 04/08/2020 16:41 /es/ BLAIR BRODY 04/08/2020 ADDENDUM STATUS: COMPLETED Left vm for to contact me to do VVC test . Provided my extension [phone] Will try back at a later time /es/ LUZ BUTTERFIELD Signed: 04/08/2020 14:26 04/08/2020 ADDENDUM STATUS: COMPLETED NOTE This greeting card writer contacted this patie nt as the 2nd attempt. After reaing through and reviewing the note that Kirk Butterfield and I were alerted to, it sounds like he should have a scheduled VVC visit with the COVID team on 04/09/2020, instead of the 1100am VVC sc heduled visit that is with his PCP for tomorrow, Wednesday04/09/2020 . If this is not correct please send us a corrected note. This patient was unavilable at this time f or tw. TW left a detailed message explaining this exac t thing to him and left my call back number to reach me at so that we can get his appt's switched sepideh und. This patient has already been VVC tested according to his chart and if he has not been we will perform a test at the time this patient contacts this writ er back. /chris/ BLAIR MORENO Signed: 04/08/2020 16:14 Receipt Acknowledged By: * AWAITING SIGNATURE * MANNY ARTEAGA 04/08/2020 16:34 /chris/ ZULEMA COLLADO Registered Nurse 04/08/2020 ADDENDUM STATUS: COMPLETED The plan discussed with PCP was to have a COVID/Flu clinic virtual visit today (if available) and still davie p the appt with PCP tomorrow for regualar follow up. Given patient was unreachabl e today, we can leave VVC appt with PCP tomorrow as- is and she can discuss his runny nose at that ti me. So no need for COVID/Flu clinic appt. Thank you for trying to reach him. /chris/ ZULEMA GLASGOW Registered Nurse Signed: 04/08/2020 16:34 Receipt Acknowledged By: 04/08/2020 16:41 /chris/ BLAIR BRODY 04/08/2020 ADDENDUM STATUS: COMPLETED NOTE Thank you for t he clarification I can call this patient and let him know that the plan is to davie p the original scheduled PCP appt as a VVC visit for tomorrow at 1100am. We will sign off on this pat ient. /chris/ BLAIR MORENO Signed: 04/08/2020 16:37 Receipt Acknowledged By: * AWAITING SIGNATURE * ZULEMA GLASGOW
--- OUTSIDE RECORDS SUMMARY | 2020-06-26 09:45 | XMS_ITS | Encounter Summary ---
:1945 Author Organization [facility] Address [address] [place] [address] Care Team Providers Name Role Phone CHANDLERMANNY Primary Care Provider Unavailable TOSHIA [place] Unavailable [...] Number Dhillon NICOLE PREFERRED BASIC May 17 [id number] [phone] OSCAR LITTLE P ATIENT [place]BS OF [place] PROVIDER SELF 2002 22 [id number] AN (FEDERAL) ORGANIZAT ION (PPO) BCBS OF [place] PREFERRED BASIC May 17 [id number] [phone] OSCAR MACEDO PATIENT FEDERAL PROVIDER SELF 2002 22 4 AN ORGANIZAT ION (PPO) CAR[place]ARK-F PRESCRIPT BCBS May 17 [id number] [phone] FR OSCAR PASTRANA PATIENT EP BCBS ION FEP 2010 0 [id number] 331 AN PLAN MEDICARE MEDICARE PART Jan 15, PART A [id number] OSCAR LITTLE PATIENT (WNR) (M) A 2008 HU83 2 AN Selected Encounter This section includes the information on record at [place] for the Encounter. Date/Time Encounter Type Encounter Reason Provider Source Description Apr 09, 2020 Outpatient TELEPHONE PRIMARY ICD-10-CM Z71.89 JET,NELLA ISE 02:52 PM Encounter CARE Other specified counseling with Provider Comments: Other specified Counseling IHE Encounter Template Text not used by VA Assessments - Encounter Diagnoses This section includes the primary and secondary diagnoses documented forthe Encounter. Date/Time Primary/Secondary Diagnosis Name Provider Source Diagnosis Apr 09, 2020 PRIMARY Other specified HARMONY CHAUDHARY 02:52 PM counseling [facility] Plan of Treatment: Future Appointments (+ 6 months) and Future Tests (+/- 45 days) The Plan of Treatment section includes future care activities for the patient from all [place] treatment facilities. This section includes future appointments and future orders which are active, pending or scheduled.Future Appointments This section includes appointments that were scheduled to occur 6 months from the date of the Encounter, up to a maximum of 20 appointments. The data comes from all [facility]. Appointment Date/Time Appointment Type Appointment Facili ty Name May 02, 2020 01:30 PM AMBULATORY - NONE [facility] Active, Pending, and Scheduled Orders This section includes a listing of several types of active, pending, and scheduled orders, including clinic medications orders, diagnostic test orders, procedure orders and consult orders; where the start date of the order is 45 days before the date of the Encounter or 45 days after the date of the Encounter. The data comes from all [place] treatment facilities. Test Date/Time Test Type Test Details Facility Name May 02, 2020 01:53 PM Laboratory - Chemistry PSA (BINGO WORKER) [facility]RE[facility] Order BLOOD(GOLD) SERUM SP [facility] Lab Results: +/- 30 days of the encounter This section includes the Chemistry and Hematology Lab Results on record with [place] for the patient. Radiology Reports and Pathology Reports are provided separately, in subsequent sections.Lab Results This section contains the Chemistry/Hematology Results that were resulted 30 days before or 30 days after the date of the Encounter. Date/Time Source Result Type Result - Unit Interpretation Reference Range Comment May 02, 2020 [facility] LIPOPROTEIN Specimen Type: PLASMA 01:53 PM [facility] CHOLESTEROL FRACT. Comment: Lala wells performed on [employer] (405) PANEL Ordering Provide r: MANNY ARTEAGA Report Released Date/Time: Sep 12, 2019 11:58 AM Reporting Lab: [facility] [address] [facility] [place] [facility] [place] [address] Performing Lab: [facility] [address] [facility] [place] [facility] [place] [address] CHOLESTEROL 194 mg/dL 0-199 TRIGLYCERIDE 166 mg/dL H 0-149 HDL CHOLESTEROL 39 mg/dL L >40 LDL CHOLESTEROL (CALC) 122 mg/dl 0-129 May 02, 2020 [facility] GLYCOHEMOGLOBIN (A1C Specimen Ty pe: BLOOD 01:53 PM [facility] ONLY) Comment: Tests performed on [employer] (405) Ordering Provide r: MANNY ARTEAGA Report Released Date/Time: Sep 12, 2019 11:58 AM Reporting Lab: [facility] [address] [facility] [address] Performing Lab: [facility] [address] [facility] [address] HEMOGLOBIN A1C 5.6 % 4.0-5.6 May 02, 2020 [facility] P4 GLU,BUN,CREAT,LYTES,CA Specim en Type: PLASMA 01:53 PM [facility] Comment: Tests performed on [employer] (405) Ordering Provide r: MANNY ARTEAGA Report Released Date/Time: Sep 12, 2019 11:58 AM Reporting Lab: [facility] [address] [facility] [address] Performing Lab: [facility] [address] [facility] [address] UREA NITROGEN 19 mg/dL 7-25 SODIUM 139 mmol/L 135-145 POTASSIUM 4.3 mmol/L 3.5-5.0 CHLORIDE 104 mmol/L 100-110 CARBON DIOXIDE 28 mmol/L 20-30 ANION GAP 7 mmol/L 4-16 GLUCOSE 93 mg/dL 65-100 CREATININE 1.22 mg/dl 0.5-1.5 CALCIUM 8.9 mg/dL 8.5-10.5 eGFR 58 mL/min L >60 May 02, 2020 01:53 [facility] CBC PROFILE Specimen Type : BLOOD PM [facility] No comment enter ed. Ordering Provide r: MANNY ARTEAGA Report Released Date/Time: Sep 12, 2019 11:58 AM Reporting Lab: [facility] [address] [facility] [address] Performing Lab: [facility] [address] [facility] [address] WBC 5.9 10*3/uL 4.5-11.0 RBC 5.04 10*6/uL [...] 0.00 10*3/uL 0-0 May 02, 2020 01:53 [facility] LIVER PROFILE Specimen Type : PLASMA PM [facility] Comment: Tests performed on [employer] (405) Ordering Provide r: MANNY ARTEAGA Report Released Date/Time: Sep 12, 2019 11:58 AM Reporting Lab: [facility] [address] [facility] [address] Performing Lab: [facility] [address] [facility] [address] PROTEIN, TOTAL 7.1 g/dL 6.0-8.5 ALBUMIN 3.9 g/dL 3.2-5.0 BILIRUBIN, TOTAL 0.7 mg/dL 0.2-1.2 ALKALINE PHOSPHATASE 82 U/L 40-150 ALT(SGPT) 27 U/L 7-52 AST(SGOT) 30 U/L 5-34 FIB-4 SCORE 1.82 INDEX <2.67 May 02, 2020 01:52 PM [place] [facility] TSH Spe cimen Type: SERUM Comment: Added by [id number] on May 02, 2020@20:09 Tests performed on [employer] (405) Ordering Provide r: TOSHIA OH Report Released Date/Time: Apr 10, 2020 12:14 PM Reporting Lab: [place] [facility] [address] [facility] [place] [address] Performing Lab: [place] [facility] [address] [facility] [address] TSH 2.02 uIU/mL 0.35-5.00 May 02, 2020 01:52 PM [place] [facility] VITAMIN B-12 Spe cimen Type: SERUM Comment: Added by [id number] on May 02, 2020@20:09 Tests performed on [employer] (405) Ordering Provide r: TOSHIA OH Report Released Date/Time: Apr 10, 2020 12:14 PM Reporting Lab: [place] [facility] [address] [facility] [place] [address] Performing Lab: [place] [facility] [address] [facility] [place] [address] VITAMIN B-12 810 pg/mL 200-900 May 02, 2020 01:52 [place] PSA (BINGO WORKER) Specimen Type : SERUM PM [facility] Comment: Added by [id number] on May 02, 2020@20:09 Tests performed on [employer] (405) Ordering Provide r: TOSHIA OH Report Released Date/Time: Apr 10, 2020 12:14 PM Reporting Lab: [place] [facility] [address] [facility] [place] [address] Performing Lab: [place] [facility] [address] [facility] [address] PSA (BINGO WORKER) <0.10 ng/mL 0-4.0 Social History: Smoking Status (Most current) and Tobacco Use (All prior to encounter date) This section includes the most current, and the historical, smoking and tobacco-related health factors from the [place] facility where the Encounter took place.Current Smoking Status This section includes the most current smoking, or tobacco-related health factor, from the [place] facility where the Encounter took place. Date/Time Current Smoking Status Comment Facility Apr 09, 2020 11:00 AM VA-TOBACCO FORMER USER [facility] Tobacco Use History This section includes a history of the smoking, or tobacco-related health factors, that were collected on or before the date of the Encounter. The data comes from the [place] facility where the Encounter took place. Date/Time Smoking Status/Tobacco Use Comment [facility] Apr 09, 2020 11:00 AM VA-TOBACCO QUIT 15 YRS OR MORE [place] [facility] Jan 14, 2018 03:08 PM VA-TOBACCO FORMER USER [place] [facility] Jan 14, 2018 03:08 PM VA-TOBACCO QUIT 15 YRS OR MORE [place] [facility] Mar 16, 2017 09:08 AM QUIT TOBACCO USE > 7 YEARS AGO [place] [facility] quit 1983Mar 04, 2016 10:28 AM QUIT TOBACCO USE > 7 YEARS AGO [place] [facility] Quit 1983Mar 10, 2005 10:47 AM H[place] SMOKING [place] [facility] 1983Mar 31, 2004 09:26 AM H[place] OF SMOKING [place] [facility] Mar 31, 2004 09:26 AM QUIT TOBACCO USE > 7 YEARS AGO [place] [facility] Aug 22, 2001 01:30 PM HISTORY OF SMOKING [place] [facility] Advance Directives: All historical and current Section Date Range: From patient's date of to the date document was created. This section includes ALL of a patient's completed or amended VA Advance and Rescinded Directives. The entries below indicate that a directive exists for the patient, but an actual copy is not included with this document. The data comes from all [place] facilities. Date Advance Directives Provider Source Feb 23, 2014 ADVANCE DIRECTIVE EYAL MONTILLA [facility] Encounter Notes: All associated encounter notes This section contains the clinical notes associated to the Encounter. Date/Time Encounter Note(s) Provider Source Apr 09, 2020 02:52 PM SOCIAL WORK TELEPHONE ENCOUNTER NOTE: HARMONY RIVERA LOCAL TITLE: Social Work Telephone Note [facility] STANDARD TITLE: SOCIAL WORK TELEPHONE ENCOUNTER NOTE DATE OF NOTE: APR 09, 2020@14:52 ENTRY DATE: APR 09, 2020@14:52:25 AUTHOR: HARMONY CHAUDHARY EXP COSIGNER: URGENCY: STATUS: COMPLETED PACT SW called and spoke with Justice, i ntroduced myself, and informed that I am following up with him based on PCP rec ommendations to offer resources for some identified needs, including h ousekeeping. CRISTINO asked Justice if he would be opened to consid ering homemaker services, which could be helpful with sorting through garb age and recycling, and would include some light housekeeping. Per Justice's question, CRISTINO clarified that Homemaker services come at no cost to Justice. CRISTINO explained that the VA contracts with community agencies like the VNA t o offer those services to Veterans. Justice acknowledged this and cautiously stated that he would like to think about it before making a commitment to getting t he services. CRISTINO encouraged to please think about it a nd let me know if he feels Homemaker services would be helpful to him. CRISTINO informed Justice of the Wednesday Coffee and Te a Social Group, which was created by Veterans to support other Veterans. Gina Russell explained that the group is currently virtual and being held via Simplify. CRISTINO encouraged to consider joining the group to see if he might enjoy it. Gina Russell agreed to send contact information in the mail for to hannah richardson. CRISTINO asked about his interest in updating Advance Directives, which Justice stated he is thinking about, and CRISTINO agre ed to send Justice Advance Directives paperwork in the mail for his conside ration as needed. CRISTINO asked Justice to please send a copy of update Advance Directives to the VA to ensure an updated copy is scanned in his medical record s. Justice agreed to do that. Justice was grateful for the information and sup port offered today. time: 10 mins See letter below sent to Justice in the mail tod ay: April 09, 2020 Mr. Kathy Little [address] [place] [id number] [facility] Mr. Little: My name is Harmony Chaudhary. I am a primary care web content & social media manager based at the [facility]. We spoke on the phone today re: Homemake r services, which offer help with some light housekeeping; these se rvices are offered by the VA at no cost to you. The VA contracts with community agencies lik e the [employer] ([employer]) to offer Veterans these serv ices. Please let me know if you are interested and I will be happy to place a referral for you. We spoke about avenues for social outlets and I informed you about the Coffee and Tea Social, which is held virtually, by phon e, on Tuesdays from 9:30AM to 10:45AM. The group is made up of Veterans who o ffer each other support. You can join the group by calling [phone] Moderator Code: [id number] followed by the # grey. Please note that as of the contact information for the group will change to [phone] code: [phone]. We would be happy to have you join the group; there is no commitment n eeded, you just drop in when you want. I also enclosed information about the Vet to Vet program, which is a volunteer- based program that offers to Vet eddie companionship and support, and is currently offered virtually via phone or video. We discussed Advance Directi ves and you requested a copy of the paperwork, which I enclosed with this letter. Please let me know if I can answer any questions about this or if you need as sistance completing the paperwork. If you decide to update your Advance Directives, please s end a copy of the document, signed and witnessed, to the VA so it can be scanned in you r medical records. Do let me know how I can bes t support you. You can reach me at ext: [phone]. Kind regards, ARMIDA Chandler Clinical Qa Automation Developer Primary Care /es/ ARMIDA CHANDLER PACT SW Signed: 04/09/2020 15:52
--- OUTSIDE RECORDS SUMMARY | 2020-06-26 09:46 | XMS_ITS ---
:1945 Author Organization [facility] Address [address] [place] [address] Care Team Providers Name Role Phone MANNY [...] Number Dhillon NICOLE PREFERRED BASIC May 17 [id number] [phone] OSCAR LITTLE P ATIENT BCBS OF [place] PROVIDER SELF 2002 22 [id number] AN (FEDERAL) ORGANIZAT ION (PPO) BCBS OF [place] PREFERRED BASIC May 17 [id number] [phone] OSCAR MACEDO PATIENT FEDERAL PROVIDER SELF 2002 22 4 AN ORGANIZAT ION (PPO) [place]-F PRESCRIPT BCBS May 17 [id number] [phone] FR OSCAR PASTRANA PATIENT EP BCBS ION FEP 2010 0 [id number] 331 AN PLAN MEDICARE MEDICARE PART Jan 15, PART A [id number] [phone] OSCAR LITTLE PATIENT (WNR) (M) A 2008 HU83 2 AN Selected Encounter This section includes the information on record at [place] for the Encounter. Date/Time Encounter Type Encounter Reason Provider Source Description Jan 25, 2020 02:47 Outpatient PRIMARY LUCITA GIL PM Encounter CARE/MEDICINE EE IHE Encounter Template Text not used by [place] Plan of Treatment: Future Appointments (+ 6 months) and Future Tests (+/- 45 days) The Plan of Treatment section includes future care activities for the patient from all [place] treatment facilities. This section includes future appointments and future orders which are active, pending or scheduled.Future Appointments This section includes appointments that were scheduled to occur 6 months from the date of the Encounter, up to a maximum of 20 appointments. The data comes [facility] [place] [facility] Appointment Date/Time Appointment Type Appointment Facili ty Name Apr 09, 2020 11:00 AM AMBULATORY - NONE [facility] May 02, 2020 01:30 PM AMBULATORY - NONE [facility] Social History: Smoking Status (Most current) and Tobacco Use (All prior to encounter date) This section includes the most current, and the historical, smoking and tobacco-related health factors from the [place] facility where the Encounter took place.Current Smoking Status This section includes the most current smoking, or tobacco-related health factor, from the [place] facility where the Encounter took place. Date/Time Current Smoking Status Comment Facility Jan 14, 2018 03:08 PM VA-TOBACCO FORMER USER [facility] Tobacco Use History This section includes a history of the smoking, or tobacco-related health factors, that were collected on or before the date of the Encounter. The data comes from the [place] facility where the Encounter took place. Date/Time Smoking Status/Tobacco Use Comment [facility] Jan 14, 2018 03:08 PM VA-TOBACCO QUIT 15 YRS OR MORE [facility] Mar 16, 2017 09:08 AM QUIT TOBACCO USE > 7 YEARS AGO [facility] quit 1983Mar 04, 2016 10:28 AM QUIT TOBACCO USE > 7 YEARS AGO [facility] Quit 1983Mar 10, 2005 10:47 AM HISTORY OF SMOKING [facility] 1983Mar 31, 2004 09:26 AM HISTORY OF SMOKING [place] [facility] Mar 31, 2004 09:26 AM QUIT TOBACCO USE > 7 YEARS AGO [facility] Aug 22, 2001 01:30 PM HISTORY OF SMOKING [place] [facility] Advance Directives: All historical and current Section Date Range: From patient's date of to the date document was created. This section includes ALL of a patient's completed or amended VA Advance and Rescinded Directives. The entries below indicate that a directive exists for the patient, but an actual copy is not included with this document. The data comes from all [place] facilities. Date Advance Directives Provider Source Feb 23, 2014 ADVANCE DIRECTIVE EYAL MONTILLA [facility] Encounter Notes: All associated encounter notes This section contains the clinical notes associated to the Encounter. Date/Time Encounter Note(s) Provider Source Jan 26, 2020 11:49 AM PRIMARY CARE SECURE MESSAGING: Jhoan GIL LOCAL TITLE: PRIMARY CARE SECURE MESSAGING [facility] STANDARD TITLE: PRIMARY CARE SECURE MESSAGING DATE OF NOTE: JAN 26, 2020@11:49:36 ENTRY DATE: JAN 26, 2020@12:49:37 AUTHOR: NURA GIL EXP COSIGNER: URGENCY: STATUS: COMPLETED PRIMARY CARE SECURE MESSAGING Has ADDENDA ------Original Message Sent: 01/26/2020 12:27 PM From: KATHY LITTLE To: Tevin [email or web address] Subject: Annual Inspection I received the flu shot at the [facility] on 01-26-20. Fldipti (65+) PFS INJ 0.5ML Let me know if I should self enter the data to y online record. Kathy Little [id number] /chris/ Nura Gil FURNACE TENDER Signed: 01/26/2020 12:49 Receipt Acknowledged By: 01/26/2020 13:08 /chris/ Manny zapata MSN, WELFARE AIDE Nurse Practitioner Faculty 01/26/2020 ADDENDUM STATUS: COMPLETED Influenza Immunization: The patient has received the seasonal infl uenza vaccine for the current season at another location. Date: January 26, 2020 Location: [facility] /chris/ Nura Gil LPN Signed: 01/26/2020 12:51 Jan 25, 2020 02:47 PM PRIMARY CARE SECURE MESSAGING: Jhoan GIL LOCAL TITLE: PRIMARY CARE SECURE MESSAGING [facility] STANDARD TITLE: PRIMARY CARE SECURE MESSAGING DATE OF NOTE: JAN 25, 2020@14:47:25 ENTRY DATE: JAN 25, 2020@15:47:25 AUTHOR: NURA GIL COSIGNER: URGENCY: STATUS: COMPLETED PRIMARY CARE SECURE MESSAGING Has ADDENDA ------Original Message Sent: 01/25/2020 02:02 PM From: KATHY LITTLE To: Tevin [email or web address] Subject: Annual Inspection If I can find a free flu shot locally, would it be helpful to delay the check-up until spring. Kathy Little [id number] /chris/ uNra Gil LPN Signed: 01/25/2020 15:47 Receipt Acknowledged By: 01/25/2020 16:18 /chris/ Manny zapata MSN, WELFARE AIDE Nurse Practitioner Faculty 01/25/2020 ADDENDUM STATUS: COMPLETED If he is feeling well, we can wait until spring /marcus Arteaga MSN, WELFARE AIDE Nurse Practitioner Faculty Signed: 01/25/2020 16:19 Receipt Acknowledged By: 01/25/2020 16:37 /marcus Gil LPN 01/25/2020 ADDENDUM STATUS: COMPLETED Secure message from PCP sent to [place]. /chris/ Nura Gil LPN Signed: 01/25/2020 16:38
--- OUTSIDE RECORDS SUMMARY | 2020-06-26 09:46 | XMS_ITS ---
:1945 Author Organization [facility] Address [address] [place] [address] Care Team Providers Name Role Phone MANNY [...] Number Dhillon NICOLE PREFERRED BASIC May 17 [id number] [phone] OSCAR LITTLE P ATIENT [place] PROVIDER SELF 2002 22 [id number] AN (FEDERAL) ORGANIZAT ION (PPO) BCBS OF [place] PREFERRED BASIC May 17 [id number] [phone] OSCAR MACEDO PATIENT FEDERAL PROVIDER SELF 2002 22 4 AN ORGANIZAT ION (PPO) [place]-F PRESCRIPT BCBS May 17, [id number] [phone] FR OSCAR PASTRANA PATIENT EP BCBS ION FEP 2010 0 [id number] 331 AN PLAN MEDICARE MEDICARE PART Jan 15, PART A [id number] OSCAR LITTLE PATIENT (WNR) (M) A 2008 HU83 2 AN Selected Encounter This section includes the information on record at [place] for the Encounter. Date/Time Encounter Type Encounter Reason Provider Source Description Jan 09, 2020 01:44 Outpatient PRIMARY LUCITA GIL PM Encounter CARE/MEDICINE EE IHE Encounter Template Text not used by [place] Plan of Treatment: Future Appointments (+ 6 months) and Future Tests (+/- 45 days) The Plan of Treatment section includes future care activities for the patient from all [place] treatment facilities. This section includes future appointments and future orders which are active, pending or scheduled.Future Appointments This section includes appointments that were scheduled to occur 6 months from the date of the Encounter, up to a maximum of 20 appointments. The [facility] [place] [facility] Appointment Date/Time Appointment Type Appointment Facili ty Name Apr 09, 2020 11:00 AM AMBULATORY - NONE [facility] May 02, 2020 01:30 PM AMBULATORY - NONE [facility] Social History: Smoking Status (Most current) and Tobacco Use (All prior to encounter date) This section includes the most current, and the historical, smoking and tobacco-related health factors from the [place] facility where the Encounter took place.Current Smoking Status This section includes the most current smoking, or tobacco-related health factor, from the [place] facility where the Encounter took place. Date/Time Current Smoking Status Comment Facility Jan 14, 2018 03:08 PM VA-TOBACCO FORMER USER [facility] Tobacco Use History This section includes a history of the smoking, or tobacco-related health factors, that were collected on or before the date of the Encounter. The data comes from the [place] facility where the Encounter took place. Date/Time Smoking Status/Tobacco Use Comment [facility] Jan 14, 2018 03:08 PM [...] this document. The data comes from all [place] facilities. Date Advance Directives Provider Source Feb 23, 2014 ADVANCE DIRECTIVE EYAL MONTILLA T [facility] Encounter Notes: All associated encounter notes This section contains the clinical notes associated to the Encounter. Date/Time Encounter Note(s) Provider Source Jan 09, 2020 01:44 PM PRIMARY CARE SECURE MESSAGING: Jhoan GIL LOCAL TITLE: PRIMARY CARE SECURE MESSAGING [facility] STANDARD TITLE: PRIMARY CARE SECURE MESSAGING DATE OF NOTE: JAN 09, 2020@13:44:19 ENTRY DATE: JAN 09, 2020@14:44:20 AUTHOR: NURA GIL EXP COSIGNER: URGENCY: STATUS: COMPLETED ------Original Message Sent: 01/09/2020 02:28 PM From: KATHY LITTLE To: Tevin [email or web address] Subject: Script RX [id number] Please revive the Sertraline 100 mg prescription . I have 9 days remaining. Kathy Weaver [id number] /chris/ Nura Gil LPN Signed: 01/09/2020 14:44 Receipt Acknowledged By: 01/09/2020 16:28 /chris/ Manny zapata MSN, KELLY MACHINE OPERATOR Nurse Practitioner Faculty
--- OUTSIDE RECORDS SUMMARY | 2020-06-26 09:46 | XMS_ITS | Encounter Summary ---
:1945 Author Organization [facility] Address [address] [place] [id number] Care Team Providers Name Role Phone MANNY [...] Coverage Telephone Name to Policy Number Dhillon JAMILAEM PREFERRED BASIC May 17 [id number] [phone] OSCAR LITTLE P ATIENT [place] PROVIDER SELF 2002 [id number] AN (FEDERAL) ORGANIZAT ION (PPO) [place] PREFERRED BASIC May 17 [id number] OSCAR MACEDO PATIENT FEDERAL PROVIDER SELF 2002 22 4 AN ORGANIZAT ION (PPO) [place]-F PRESCRIPT BCBS May 17 [id number] [phone] PASTRANAOSCAR PATIENT EP BCBS ION FEP 2010 0 [id number] AN PLAN MEDICARE MEDICARE PART Jan 15 PART A [id number] OSCAR LITTLE PATIENT (WNR) (M) A 2008 [id number] 2 AN Selected Encounter This section includes the information on record at [facility] for the Encounter. Date/Time Encounter Type Encounter Reason Provider Source Description October 05, 2019 Outpatient NEUROLOGY ICD-10-CM R44.0 ANTONIA ARIAS 03:41 PM Encounter Auditory H BRY hallucinations with Provider Comments: Auditory Hallucinations IHE Encounter Template Text not used by [facility] Assessments - Encounter Diagnoses This section includes the primary and secondary diagnoses documented forthe Encounter. Date/Time Primary/Secondary Diagnosis Name Provider Source Diagnosis October 05, 2019 PRIMARY Auditory ALEX ARIAS 04:07 PM hallucinations BRY [facility] Social History: Smoking Status (Most current) and Tobacco Use (All prior to encounter date) This section includes the most current, and the historical, smoking and tobacco-related health factors from the [place] facility where the Encounter took place.Current Smoking Status This section includes the most current smoking, or tobacco-related health factor, from the [facility] facility where the Encounter took place. Date/Time Current Smoking Status Comment Facility Jan 14, 2018 03:08 PM VA-TOBACCO FORMER USER WHI HANNA ARREOLA [facility] Tobacco Use History This section includes a history of the smoking, or tobacco-related health factors, that were collected on or before the date of the Encounter. The data comes from the [place] facility where the Encounter took place. Date/Time Smoking Status/Tobacco Use Comment [facility] Jan 14, 2018 03:08 PM VA-TOBACCO QUIT 15 YRS OR MORE [facility] Mar 16, 2017 09:08 AM QUIT TOBACCO USE > 7 YEARS AGO [facility] quit 1983Mar 04, 2016 10:28 AM QUIT TOBACCO USE > 7 YEARS AGO [facility] Quit 1983Mar 10, 2005 10:47 AM HISTORY OF SMOKING WHITE R IVER [facility] 1983Mar 31, 2004 09:26 AM HISTORY OF SMOKING WHITE R IVER [facility] Mar 31, 2004 09:26 AM QUIT TOBACCO USE > 7 YEARS AGO [facility] Aug 22, 2001 01:30 PM HISTORY OF SMOKING WHITE R IVER [facility] Advance Directives: All historical and current Section Date Range: From patient's date of to the date document was created. This section includes ALL of a patient's completed or amended [place] Advance and Rescinded Directives. The entries below indicate that a directive exists for the patient, but an actual copy is not included with this document. The data comes from all [place] facilities. Date Advance Directives Provider Source Feb 23, 2014 ADVANCE DIRECTIVE EYAL MONTILLA [facility] Encounter Notes: All associated encounter notes This section contains the clinical notes associated to the Encounter. Date/Time Encounter Note(s) Provider Source October 05, 2019 03:41 PM CONSULT: ALEX ARIAS LOCAL TITLE: E-Consult Note [facility] STANDARD TITLE: CONSULT DATE OF NOTE: OCTOBER 05, 2019@15:41 ENTRY DATE: OCTOBER 05, 2019@15:41:40 AUTHOR: ALEX ARIAS COSIGNER: URGENCY: STATUS: COMPLETED REASON FOR CHART REVIEW: Auditory Hallucinations Mr. Little is a 74 yo gentleman with au ditory hallucinations, such as hearing chainsaw noises, doorbell, a dn voices, mostly as night. Symptoms started about 6 months ago, 3 months after starting sertraline PMhx: bipolar disorder, anxiety disorder, dyslip idemia, JAY JAY., trifascicular heart block, prostate CA, Asthma, LBP, paranoia Active Outpatient Medications (excluding Sup plies): Active Outpatient Medications Status === 1) BUDESONIDE 80/FORMOTER 4.5MCG 120D INH INHALE 2 PUFFS ACTIVE BY MOUTH TWICE A DAY FOR BREATHING/RI NSE MOUTH WITH WATER,SWISH AROUND AND SPIT OUT AFTER USING INHALER 2) DOCUSATE NA 100MG CAP TAKE ONE CAPSULE BY MOUTH TWICE ACTIVE DAILY NEEDED TO SOFTEN STOOL 3) KETOCONAZOLE 2% SHAMPOO SHAMPOO SMALL A MOUNT ACTIVE TOPICALLY ON MONDAYS AND THURSDAYS 4) OMEPRAZOLE 20MG EC CAP TAKE ONE CAPSULE BY MOUTH ACTIVE EVERY DAY FOR STOMACH ACID (TAKE HALF -HOUR BEFORE A MEAL(S) 5) POLYETHYLENE GLYCOL 3350 ORAL PWDR TAKE 1 CAPFUL (17 ACTIVE GRAMS) BY MOUTH EVERY DAY , DISSOLVED IN 4 TO 8 OZ. CLEAR LIQUID / FOR CONSTIPATION 6) PSYLLIUM ORAL PWD TAKE 1 TABLESPOONFUL BY MOUTH EVERY ACTIVE DAY AFTER DISSOLVED IN 4 TO 8 OZ. GORAN AR LIQUID / FOR CONSTIPATION 7) SERTRALINE HCL 100MG TAB TAKE ONE TABLE T BY MOUTH ACTIVE EVERY DAY FOR DEPRESSION OR ANXIETY 8) SIMVASTATIN 20MG TAB TAKE ONE TABLET BY MOUTH EVERY ACTIVE (S) DAY TO LOWER CHOLESTEROL Active Non-VA Medications Status === 1) Non-VA ASPIRIN 325MG TAB 325MG MOUTH EV PEG DAY ACTIVE 9 Total Medications FAM HX: brother with dementia after TBI mother with phobia, ETOH problem, psoriasis. dec eased in 1981 father s/p [place]. in 1997 grandfather with ETOH problem MRI BRAIN W/O CONTRAST Proc Ord: MRI BRAIN W/WO CONTRAST Exm Date: MAR 17, 2019@09:00 Req Phys: MANNY ARTEAGA Pat Loc: [facility] PACT 3 E WH M1RB (Req'g Lo Impression: 1. No acute infarct or acute intracranial findings. 2. Minimal small vessel ischemic disease Labs: B12 283 (l) 03/04 TSH WNBL 03/04 blood lead WNl 03/04 HIV Ag/Ab screen NR 03/04 LFTs WNl 03/04 Assessment: 74 yo M with complex auditory halluc inations. His mental health history may be playing a ro le. Epileptic etiology should be considered. Visual hallucinations have been dscribed with sertralin e [Jean FISH, Yordy D, Lio T, et al: Vis ual hallucinations associated with fluoxetine and sertraline (letter). J Clin Psychopharmacol 1998; 18:842- 843], but auditory hallucinations have not been reported as a side effect, to the besdt of my knowledge. Plan: -B12 supplementation as indicated -continue to follow closely with mental health -EEG -consider referral to neurology for comprehensiv e exam and evaluation /es/ ALEX ARIAS Chief of Neurology Signed: 10/05/2019 16:07
--- OUTSIDE RECORDS SUMMARY | 2020-06-26 09:46 | XMS_ITS | Encounter Summary ---
:1945 Author Organization [facility] Address [address] [place] [address] Care Team Providers Name Role Phone MANNY [...] Number Dhillon NICOLE PREFERRED BASIC May 17 [id number] [phone] OSCAR LITTLE P ATIENT [place] PROVIDER SELF 2002 [id number] AN (FEDERAL) ORGANIZAT ION (PPO) [place] PREFERRED BASIC May 17 [id number] [phone] OSCAR MACEDO PATIENT FEDERAL PROVIDER SELF 2002 22 4 AN ORGANIZAT ION (PPO) [place]-F PRESCRIPT BCBS May 17, [id number] [phone] FR OSCAR PASTRANA PATIENT EP BCBS ION FEP 2010 0 [id number] 331 AN PLAN MEDICARE MEDICARE PART Jan 15, PART A [id number] OSCAR LITTLE PATIENT (WNR) (M) A 2008 [id number] 2 AN Selected Encounter This section includes the information on record at [place] for the Encounter. Date/Time Encounter Type Encounter Reason Provider Source Description Jan 26, 2020 11:48 Outpatient PRIMARY LUCITA GIL AM Encounter CARE/MEDICINE EE IHE Encounter Template Text not used by [place] Plan of Treatment: Future Appointments (+ 6 [...] appointments. The [facility] Appointment Date/Time Appointment Type Appointment Facili ty Name Apr 09, 2020 11:00 AM AMBULATORY - NONE [facility] May 02, 2020 01:30 PM AMBULATORY [...] 2018 03:08 PM VA-TOBACCO FORMER USER [facility] Tobacco Use History This section includes a history of the smoking, or tobacco-related health factors, that were collected on or before the date of the Encounter. The data comes from the [place] facility where the Encounter took place. Date/Time Smoking Status/Tobacco Use Comment [facility] Jan 14, 2018 03:08 PM VA-TOBACCO QUIT 15 YRS OR MORE [facility] Mar 16, 2017 09:08 AM QUIT TOBACCO USE > 7 YEARS AGO [facility] quit 1983Mar 04, 2016 10:28 AM QUIT TOBACCO USE > 7 YEARS AGO [facility] Quit 1983Mar 10, 2005 10:47 AM HISTORY OF SMOKING WHITE R [facility] 1983Mar 31, 2004 09:26 AM HISTORY OF SMOKING WHITE R IVER [facility] Mar 31, 2004 09:26 AM QUIT TOBACCO USE > 7 YEARS AGO [facility] Aug 22, 2001 01:30 PM HISTORY OF SMOKING WHITE R IVER [facility] Advance Directives: All historical and current [...] 2014 ADVANCE DIRECTIVE EYAL MONTILLA [facility] Encounter Notes: All associated encounter notes This section contains the clinical notes associated to the Encounter. Date/Time Encounter Note(s) Provider Source Jan 26, 2020 11:48 AM PRIMARY CARE SECURE MESSAGING: Jhoan GILT LOCAL TITLE: PRIMARY CARE SECURE MESSAGING [facility] STANDARD TITLE: PRIMARY CARE SECURE MESSAGING DATE OF NOTE: JAN 26, 2020@11:48:10 ENTRY DATE: JAN 26, 2020@12:48:10 AUTHOR: NURA GIL EXP COSIGNER: URGENCY: STATUS: COMPLETED ------Original Message Sent: 01/26/2020 12:33 PM From: KATHY LITTLE To: Tevin ARTEAGA_[email or web address] Subject: General Inquiry I will contact you again in the spring. Let me know if the Covid-19 vacine becomes avail able. Kathy Little [id number] /chris/ Nura Gil SPRAY GUNNER Signed: 01/26/2020 12:48 Receipt Acknowledged By: 01/26/2020 13:09 /es/ Manny zapata MSN, BACKFILLER Nurse Practitioner Faculty
--- OUTSIDE RECORDS SUMMARY | 2020-06-26 09:46 | XMS_ITS | Encounter Summary ---
:1945 Author Organization Department [facility] Address [address] [place] [id number] Care Team Providers Name Role Phone MANNY [...] Number Dhillon NICOLE PREFERRED BASIC May 17 [id number] [phone] OSCAR LITTLE P ATIENT [place] PROVIDER SELF 2002 [id number] AN (FEDERAL) ORGANIZAT ION (PPO) [place] PREFERRED BASIC May 17 [id number] [phone] OSCAR MACEDO PATIENT FEDERAL PROVIDER SELF 2002 22 4 AN ORGANIZAT ION (PPO) [place]-F PRESCRIPT BCBS May 17, [id number] [phone] FR OSCAR PASTRANA PATIENT EP BCBS ION FEP 2010 0 [id number] 331 AN PLAN MEDICARE MEDICARE PART Jan 15, PART A [id number] OSCAR LITTLE PATIENT (WNR) (M) A 2008 [id number] 2 AN Selected Encounter This section includes the information on record at [place] for the Encounter. Date/Time Encounter Type Encounter Reason Provider Source Description Dec 15, 2019 11:11 Outpatient PRIMARY TYRESE HOWELL AM Encounter CARE/MEDICINE IHE Encounter Template Text not used by [place] Plan of Treatment: Future Appointments (+ 6 months) and Future Tests (+/- 45 days) The Plan of Treatment section includes future care activities for the patient from all [place] treatment facilities. This section includes future appointments and future orders which are active, pending or scheduled.Future Appointments This section includes appointments that were scheduled to occur 6 months from the date of the Encounter, up to a maximum of 20 appointments. The data comes [facility] Appointment Date/Time Appointment Type Appointment Facili ty Name Apr 09, 2020 11:00 AM AMBULATORY - NONE [facility] May 02, 2020 01:30 PM AMBULATORY - NONE [facility] Social History: Smoking Status (Most current) and Tobacco Use (All prior to encounter date) This section includes the most current, and the historical, smoking and tobacco-related health factors from the [facility] facility where the Encounter took place.Current Smoking Status This section includes the most current smoking, or tobacco-related health factor, from the [place] facility where the Encounter took place. Date/Time Current Smoking Status Comment Facility Jan 14, 2018 03:08 PM VA-TOBACCO FORMER USER [facility] Tobacco Use History This section includes a history of the smoking, or tobacco-related health factors, that were collected on or before the date of the Encounter. The data comes from the [place] facility where the Encounter took place. Date/Time Smoking Status/Tobacco Use Comment [facility] Jan 14, 2018 03:08 PM VA-TOBACCO QUIT 15 YRS OR MORE [facility] Mar 16, 2017 09:08 AM QUIT TOBACCO USE > 7 YEARS AGO [facility] quit 1983Mar 04, 2016 10:28 AM QUIT TOBACCO USE > 7 YEARS AGO [facility] Quit 1983Mar 10, 2005 10:47 AM HISTORY OF SMOKING WHITE R IVER [facility] 1983Mar 31, 2004 09:26 AM HISTORY OF SMOKING WHITE R IVER [facility] Mar 31, 2004 09:26 AM QUIT TOBACCO USE > 7 YEARS AGO [facility] Aug 22, 2001 01:30 PM HISTORY OF SMOKING WHITE R IVER [facility] Advance Directives: All historical and current Section Date Range: From patient's date of to the date document was created. This section includes ALL of a patient's completed or amended [place] Advance and Rescinded Directives. The entries below indicate that a directive exists for the patient, but an actual copy is not included with this document. The data comes from all [place] facilities. Date Advance Directives Provider Source Feb 23, 2014 ADVANCE DIRECTIVE EYAL MONTILLA T [facility] Encounter Notes: All associated encounter notes This section contains the clinical notes associated to the Encounter. Date/Time Encounter Note(s) Provider Source Dec 15, 2019 11:11 AM PRIMARY CARE SECURE MESSAGING: JEANETH HOWELLT LOCAL TITLE: PRIMARY CARE SECURE MESSAGING [facility] STANDARD TITLE: PRIMARY CARE SECURE MESSAGING DATE OF NOTE: DEC 15, 2019@11:11:25 ENTRY DATE: DEC 15, 2019@12:11:26 AUTHOR: TYRESE HOWELL EXP COSIGNER: URGENCY: STATUS: COMPLETED ------Original Message Sent: 12/15/2019 11:33 AM From: KATHY LITTLE To: Tevin ARTEAGA_[facility]_[email or web address] Subject: Hearing Loss Using the finger in the ear test, I have found t he right ear to be X and the left ear to be 30% of X. I have been using caption television to augment the sound. Friends and family have encouraged me to get a hearing test. Bless Kathy santillan ([id number]) ------Original Message Sent: 12/15/2019 12:11 PM From: TYRESE HOWELL To: KATHY LITTLE Subject: Hearing Loss Hi Mr. Little, You can self refer to get a hearing test . Please call the advice line and they can connect you with audiology. Due to c ovid virus concerns the appts might be limited at this time but you can discuss with them some options for scheduling. Jazmine guaman /chris/ TYRESE HOWELL Staff Nurse Signed: 12/15/2019 12:11 Receipt Acknowledged By: 12/15/2019 12:28 /chris/ Manny zapata MSN, THERAPEUTIC RECREATION DIRECTOR Nurse Practitioner Faculty
--- OUTSIDE RECORDS SUMMARY | 2020-06-26 09:46 | XMS_ITS ---
:1945 Author Organization Department [facility] rs Address [address] [place] [address] Care Team Providers Name Role Phone MANNY [...] Number Dhillon NICOLE PREFERRED BASIC May 17 [id number] [phone] OSCAR LITTLE P ATIENT [place] PROVIDER SELF 2002 22 [id number] AN (FEDERAL) ORGANIZAT ION (PPO) [place] PREFERRED BASIC May 17 [id number] [phone] OSCAR MACEDO PATIENT FEDERAL PROVIDER SELF 2002 22 4 AN ORGANIZAT ION (PPO) [place]-F PRESCRIPT BCBS May 17, [id number] [phone] FR ZEINAOSCAR PATIENT EP BCBS ION FEP 2010 0 [id number] AN PLAN MEDICARE MEDICARE PART Jan 15, PART A [id number] OSCAR LITTLE PATIENT (WNR) (M) A 2008 [id number] 2 AN Selected Encounter This section includes the information on record at [place] for the Encounter. Date/Time Encounter Type Encounter Reason Provider Source Description Sep 12, 2019 OFFICE OR OTHER PRIMARY ICD-10-CM R44.0 Tevin ARTEAGA 11:31 AM OUTPATIENT VISIT CARE/MEDICINE Auditory RIDGET [place] FOR THE hallucinations with EVALUATION AND Provider Comments: MANAGEMENT OF AN Auditory ESTABLISHED Hallucinations PATIENT, WHICH REQUIRES AT LEAST 2 OF THESE 3 EDDY COMPONENTS: A DETAILED HISTORY; A DETAILED EXAMINATION; MEDICAL DECISION MAKING OF MODERATE COMPLEXITY. COUNSELING AND/OR COORDINATION OF CARE WITH OTHER PHYSICIANS, OTHER QUALIFIED HEALTH HEEL SEAT LASTER, OR AGENCIES ARE PROVIDED CONSISTENT WITH THE NATURE OF THE PROBLEM(S) AND THE PATIENT'S AND/OR FAMILY'S NEEDS. USUALLY, THE PRESENTING PROBLEM(S) ARE OF MODERATE TO HIGH SEVERITY. TYPICALLY, 25 MINUTES ARE SPENT [id number] WITH THE PATIENT AND/OR FAMILY. [facility] Encounter Template Text not used by [facility] Assessments - Encounter Diagnoses This section includes the primary and secondary diagnoses documented forthe Encounter. Date/Time Primary/Secondary Diagnosis Name Provider Source Diagnosis Sep 12, 2019 PRIMARY Auditory LUCINA SIM L [place] 12:07 PM hallucinations [facility] Sep 12, 2019 PRIMARY Mild persistent CHIQUISLUCINA L [place] 12:07 PM asthma, [facility] uncomplicated Sep 12, 2019 SECONDARY Auditory KUMAR SIMA L [place] 12:07 PM hallucinations [facility] Sep 12, 2019 SECONDARY Gastro-esophageal KUMAR SIMA L [place] [facility] 12:07 PM reflux disease [facility] without esophagitis Sep 12, 2019 SECONDARY Gastro-esophageal CHIQUISLUCINA L [place] [facility] 12:07 PM reflux disease [facility] without esophagitis Sep 12, 2019 SECONDARY Hyperlipidemia, KUMAR SIMA L [place] 12:07 PM unspecified [facility] Sep 12, 2019 SECONDARY Hyperlipidemia, CHIQUISLUCINA L [place] 12:07 PM unspecified [facility] Sep 12, 2019 SECONDARY detention (current) LUCINA SIM [place] 12:07 PM use of inhaled [facility] steroids Sep 12, 2019 SECONDARY Major depressive LUCINA SIM L [facility] [place] [facility] 12:07 PM disorder, single [facility] episode, unspecified Sep 12, 2019 SECONDARY Other retirement LUCINA SIM L [place] 12:07 PM (current) drug [facility] therapy Sep 12, 2019 SECONDARY Unspecified asthma, LUCINA SIM [place] 12:07 PM uncomplicated [facility] Social History: Smoking Status (Most current) and Tobacco Use (All prior to encounter date) This section includes the most current, and the historical, smoking and tobacco-related health factors from the [place] facility where the Encounter took place.Current Smoking Status This section includes the most current smoking, or tobacco-related health factor, from the [place] facility where the Encounter took place. Date/Time Current Smoking Status Comment Facility Jan 14, 2018 03:08 PM VA-TOBACCO FORMER USER [facility] Tobacco Use History This section includes a history of the smoking, or tobacco-related health factors, that were collected on or before the date of the Encounter. The data comes from the [place] facility where the Encounter took place. Date/Time Smoking Status/Tobacco Use Comment [facility] Jan 14, 2018 03:08 PM VA-TOBACCO QUIT 15 YRS OR MORE [facility] Mar 16, 2017 09:08 AM QUIT TOBACCO USE > 7 YEARS AGO [facility] [place] [facility] quit 1983Mar 04, 2016 10:28 AM QUIT TOBACCO USE > 7 YEARS AGO [facility] [place] [facility] Quit 1983Mar 10, 2005 10:47 AM HISTORY OF SMOKING AD[facility]A POLO T [facility] 1983Mar 31, 2004 09:26 AM HISTORY OF SMOKING [facility] [facility] Mar 31, 2004 09:26 AM QUIT TOBACCO USE > 7 YEARS AGO [facility] Aug 22, 2001 01:30 PM HISTORY OF SMOKING [facility] Advance Directives: All historical and current Section Date Range: From patient's date of to the date document was created. This section includes ALL of a patient's completed or amended VA Advance and Rescinded Directives. The entries below indicate that a directive exists for the patient, but an actual copy is not included with this document. The data comes from all [place] facilities. Date Advance Directives Provider Source Feb 23, 2014 ADVANCE DIRECTIVE EYAL MONTILLA [facility] Encounter Notes: All associated encounter notes This section contains the clinical notes associated to the Encounter. Date/Time Encounter Note(s) Provider Source Sep 12, 2019 11:28 TELEHEALTH NOTE: MANNY ARTEAGA AM LOCAL TITLE: VIDEO-CONNECT NOTE K [facility] STANDARD TITLE: TELEHEALTH NOTE DATE OF NOTE: SEP 12, 2019@11:28 ENTRY DATE: SEP 12, 2019@11:28:30 AUTHOR: MANNY ARTEAGA EXP COSIGNER: URGENCY: STATUS: COMPLETED VA Video Connect appointment: Provider confirmed that is currently loc ated at the following address listed in their CPRS chart. [address] [place] [address] However, different phone number: [phone] e-911: Call [phone] to speak with an agent who can put you in touch with a locomotive switch operator at the Patient's location. Y ou must have the physical location (address) where the Patient is currentl y located. Verbal informed consent has been obtained. Pt is feeling well but continues to have some au ditory hallucinations - hears chainsaw noises, doorbell ringing and some voice s mostly at night. It has been going on for about 6-7 months and he wonder s if it could be a side effect of sertraline. He had a brain MRI 019 which showed: 1. No acute infarct or acute intracrania l findings. 2. Minimal small vessel ischemic disease He did not have his hearing tested. His labs were essentially normal except his B12 that was borderline low and he was started o n a B12 supplement. He continues to have symptoms but no change. PMH: Cancer, prostate, primary Asthma Low Back Pain, Lumbago Personal History of Colonic Polyps Obesity Tinea Unguium Esophageal Reflux Diarrhea Anxiety Disorders Bipolar Disorder Paranoia Pure hypercholesterolemia Medications: Sertraline 100mg QD Omeprazole 20 mg QD Symbicort BID Albuterol PRN Simvastatin 20 mg QD Sigmoid/Thomson: due 05/2020 PSA: due February Immunizations:Up to date [x], Pneumovax [], teta nus [], flu vaccine [] Smoking [] yes [x] NO Alcohol [] yes [x] no [] drinks/week Depression screen: [x ]neg []pos Eye exam: [ x] yes [ ] no Dental exam [ ] yes [ x] no Seatbelts [ x] yes [ ] no ROS: Gen: sleeps well, good energy, appetite goo d HEENT: denies headaches, sinus pain or pre ssure, visual disturbances, NC, PND, ear pain Resp: denies SOB, dyspnea, cough, hemoptys is CV: denies chest pain or pressure, heart pa lpitations, lightheadedness GI: denies diarrhea, constipation, blood in stool, heartburn : no urinary frequency, urgency MS: no joint aches or pains, no redness or swelling of joints Extrem: no edema, pain Neuro: no numbness or tingling O: A&O x3, NAD, speech clear, speaking in compl ete sentences, appear comfortable A&P: Auditory hallucinations -> brain MRI and labs all WNL, continues on sertraline. Pt does not want to go to Neurology but is agreeable to this provider doing an eConsult. Depression -> doing well on sertraline Asthma -> stable on Symbicort, albuterol GERD -> stable on omeprazole HL On simvastatain. 15 minutes was spent on medical discussion with this pt. Outpt. Medication Reconciliation: No Discrepancies Found - Med Rec Completed. NO DISCREPANCIES FOUND - The patient's med ication list/medication history to include Local Active VA Prescri ptions, Remote Active VA Prescriptions, Non-VA medications, Recentl y VA Prescriptions (90-180 days), Recently Discontinued VA Pr escriptions (90-180 days), and Pending Medication Orders where releva nt (e.g., patient is seen by multiple providers in the same day) was compared with CPRS and reviewed with the patient/caregiver and re conciled. A copy of the updated medication list was provided to th e patient/caregiver. The patient/caregiver was instructed to update this list, discard old lists, and take this list to their next ap pointment, whether with a VA or non-VA provider. Any changes in medi cations and any medications discontinued are documented in this note. /chris/ Manny Arteaga MSN, SEED SORTER Nurse Practitioner Faculty Signed: 09/12/2019 12:07
--- OUTSIDE RECORDS SUMMARY | 2020-06-26 09:47 | XMS_ITS ---
:1945 Author Organization [facility] Address [address] [place] [address] Care Team Providers Name Role Phone MANNY [...] Number Dhillon NICOLE PREFERRED BASIC May 17 [id number] [phone] OSCAR LITTLE P ATIENT [place]BS OF [place] PROVIDER SELF 2002 22 [id number] AN (FEDERAL) ORGANIZAT ION (PPO) BCBS OF [place] PREFERRED BASIC May 17 [id number] [phone] OSCAR MACEDO PATIENT FEDERAL PROVIDER SELF 2002 22 4 AN ORGANIZAT ION (PPO) [place]-F PRESCRIPT BCBS May 17, [id number] [phone] FR ZEINAOSCAR PATIENT EP BCBS ION FEP 2010 0 [id number] 331 AN PLAN MEDICARE MEDICARE PART Jan 15, PART A [id number] OSCAR LITTLE PATIENT (WNR) (M) A 2008 [id number] 2 AN Selected Encounter This section includes the information on record at [place] for the Encounter. Date/Time Encounter Type Encounter Reason Provider Source Description Aug 24, 2019 01:10 Outpatient PRIMARY MADAN JOHNSON PM Encounter CARE/MEDICINE IHE Encounter Template Text not used by [place] Plan of Treatment: Future Appointments (+ 6 months) and Future Tests (+/- 45 days) The Plan of Treatment section includes future care activities for the patient from all [place] treatment facilities. This section includes future appointments and future orders which are active, pending or scheduled.Future Appointments This section includes appointments that were scheduled to occur 6 months from the date of the Encounter, up to a maximum of 20 appointments. The data comes from all [facility]. Appointment Date/Time Appointment Type Appointment Facili ty Name Sep 12, 2019 11:31 AM AMBULATORY - NONE [facility] Social History: Smoking Status (Most current) and Tobacco Use (All prior to encounter date) This section includes the most current, and the historical, smoking and tobacco-related health factors from the [place] facility where the Encounter took place.Current Smoking Status This section includes the most current smoking, or tobacco-related health factor, from the [place] facility where the Encounter took place. Date/Time Current Smoking Status Comment Facility Jan 14, 2018 03:08 PM VA-TOBACCO FORMER USER [facility] Tobacco Use History This section includes a history of the smoking, or tobacco-related health factors, that were collected on or before the date of the Encounter. The data comes from the [place] facility where the Encounter took place. Date/Time Smoking Status/Tobacco Use Comment [facility] Jan 14, 2018 03:08 PM VA-TOBACCO QUIT 15 YRS OR MORE [facility] Mar 16, 2017 09:08 AM QUIT TOBACCO USE > 7 YEARS AGO [facility] quit 1983Mar 04, 2016 10:28 AM QUIT TOBACCO USE > 7 YEARS AGO [facility] Quit 1983Mar 10, 2005 10:47 AM HISTORY OF SMOKING [facility] [place] [facility] 1983Mar 31, 2004 09:26 AM HISTORY OF SMOKING [place] [facility] Mar 31, 2004 09:26 AM QUIT TOBACCO USE > 7 YEARS AGO [facility] Aug 22, 2001 01:30 PM HISTORY OF SMOKING [facility] [place] [facility] Advance Directives: All historical and current Section Date Range: From patient's date of to the date document was created. This section includes ALL of a patient's completed or amended VA Advance and Rescinded Directives. The entries below indicate that a directive exists for the patient, but an actual copy is not included with this document. The data comes from all [place] facilities. Date Advance Directives Provider Source Feb 23, 2014 ADVANCE DIRECTIVE EYAL MONTILLA T [facility] Encounter Notes: All associated encounter notes This section contains the clinical notes associated to the Encounter. Date/Time Encounter Note(s) Provider Source Aug 24, 2019 01:10 PM PRIMARY CARE SECURE MESSAGING: GEOFFREY JOHNSONT LOCAL TITLE: PRIMARY CARE SECURE MESSAGING [facility] STANDARD TITLE: PRIMARY CARE SECURE MESSAGING DATE OF NOTE: AUG 24, 2019@13:10:05 ENTRY DATE: AUG 24, 2019@14:10:06 AUTHOR: MADAN JOHNSON EXP COSIGNER: URGENCY: STATUS: COMPLETED ------Original Message Sent: 08/24/2019 02:09 PM From: MADAN JOHNSON To: KATHY LITTLE Subject: General Inquiry I have renewed your budesonide/formoterol for yo ur PCP, who is currently working on other duties temporarily during the c ovid pandemic. madan johnson FOREIGN LANGUAGE STENOGRAPHER /es/ Madan Augustine. GERI Johnson, DIRECTOR SECURITY RISK MANAGEMENT Nurse Practitioner Faculty Signed: 08/24/2019 14:10
--- OUTSIDE RECORDS SUMMARY | 2020-06-26 09:47 | XMS_ITS | Encounter Summary ---
:1945 Author Organization [facility] Address [address] [place] [address] Care Team Providers Name Role Phone MANNY [...] Number Dhillon NICOLE PREFERRED BASIC May 17 [id number] [phone] OSCAR LITTLE P ATIENT [place] PROVIDER SELF 2002 22 3316 AN (FEDERAL) ORGANIZAT ION (PPO) [place] PREFERRED BASIC May 17 [id number] [phone] OSCAR MACEDO PATIENT FEDERAL PROVIDER SELF 2002 22 4 AN ORGANIZAT ION (PPO) [place]-F PRESCRIPT BCBS May 17, [id number] [phone] FR ZEINAOSCAR PATIENT EP BCBS ION FEP 2010 0 22 331 AN PLAN MEDICARE MEDICARE PART Jan 15, PART A [id number] OSCAR LITTLE PATIENT (WNR) (M) A 2008 HU83 2 AN Selected Encounter This section includes the information on record at [place] for the Encounter. Date/Time Encounter Type Encounter Reason Provider Source Description Aug 24, 2019 01:04 Outpatient PRIMARY KAM JOHNSON PM Encounter CARE/MEDICINE IHE Encounter Template Text not used by [place] Plan of Treatment: Future Appointments (+ 6 months) and Future Tests (+/- 45 days) The Plan of Treatment section includes future care activities for the patient from all [place] treatment facilities. This section includes future appointments and future orders which are active, pending or scheduled.Future Appointments This section includes appointments that were scheduled to occur 6 months from the date of the Encounter, up to a maximum of 20 appointments. The data comes from all [facility]. Appointment Date/Time Appointment Type Appointment Facili ty Name Sep 12, 2019 11:31 AM AMBULATORY - NONE [facility] Social History: Smoking Status (Most current) and Tobacco Use (All prior to encounter date) This section includes the most current, and the historical, smoking and tobacco-related health factors from the [place] facility where the Encounter took place.Current Smoking Status This section includes the most current smoking, or tobacco-related health factor, from the [place] facility where the Encounter took place. Date/Time Current Smoking Status Comment Facility Jan 14, 2018 03:08 PM VA-TOBACCO FORMER USER [facility] Tobacco Use History This section includes a history of the smoking, or tobacco-related health factors, that were collected on or before the date of the Encounter. The data comes from the [place] facility where the Encounter took place. Date/Time Smoking Status/Tobacco Use Comment [facility] Jan 14, 2018 03:08 PM VA-TOBACCO QUIT 15 YRS OR MORE [facility] Mar 16, 2017 09:08 AM QUIT TOBACCO USE > 7 YEARS AGO [facility] quit 1983Mar 04, 2016 10:28 AM QUIT TOBACCO USE > 7 YEARS AGO [facility] Quit 1983Mar 10, 2005 10:47 AM HISTORY OF SMOKING [facility]ITE R IVER [facility] 1983Mar 31, 2004 09:26 AM HISTORY OF SMOKING [place] [facility] Mar 31, 2004 09:26 AM QUIT TOBACCO USE > 7 YEARS AGO [facility] Aug 22, 2001 01:30 PM HISTORY OF SMOKING [place] [facility] Advance Directives: All historical and current Section Date Range: From patient's date of to the date document was created. This section includes ALL of a patient's completed or amended VA Advance and Rescinded Directives. The entries below indicate that a directive exists for the patient, but an actual copy is not included with this document. The data comes from all [place] facilities. Date Advance Directives Provider Source Feb 23, 2014 ADVANCE DIRECTIVE EYAL MONTILLA T [facility] Encounter Notes: All associated encounter notes This section contains the clinical notes associated to the Encounter. Date/Time Encounter Note(s) Provider Source Aug 24, 2019 01:04 PM PRIMARY CARE SECURE MESSAGING: GEOFFREY JOHNSONT LOCAL TITLE: PRIMARY CARE SECURE MESSAGING [facility] STANDARD TITLE: PRIMARY CARE SECURE MESSAGING DATE OF NOTE: AUG 24, 2019@13:04:43 ENTRY DATE: AUG 24, 2019@14:04:44 AUTHOR: KAM JOHNSON EXP COSIGNER: URGENCY: STATUS: COMPLETED PRIMARY CARE SECURE MESSAGING Has ADDENDA ------Original Message Sent: 08/24/2019 01:46 PM From: KATHY LITTLE To: Tevin [email or web address] Subject: Budesonide RX [id number] before F illing final Please authorize new script with renewals. [facility] arm. Hope you are well, Kathy Fuentes. [place] [phone] /chris/ Kam Johnson DNP, APRN Nurse Practitioner Faculty Signed: 08/24/2019 14:04 08/24/2019 ADDENDUM STATUS: COMPLETED renewed. /chris/ Kam Johnson DNP, APRN Nurse Practitioner Faculty Signed: 08/24/2019 14:05
--- OUTSIDE RECORDS SUMMARY | 2020-06-26 09:47 | XMS_ITS | Encounter Summary ---
:1945 Author Organization [facility] Address [address] [place] [address] Care Team Providers Name Role Phone MANNY [...] Number Dhillon NICOLE PREFERRED BASIC May 17 [id number] [phone] OSCAR LITTLE P ATIENT [place] PROVIDER SELF 2002 22 3316 AN (FEDERAL) ORGANIZAT ION (PPO) BCBS OF [place] PREFERRED BASIC May 17 [id number] [phone] OSCAR MACEDO PATIENT FEDERAL PROVIDER SELF 2002 22 4 AN ORGANIZAT ION (PPO) [place]-F PRESCRIPT BCBS May 17, [id number] [phone] FR OSCAR PASTRANA PATIENT EP BCBS ION FEP 2010 0 22 331 AN PLAN MEDICARE MEDICARE PART Jan 15, PART A [id number] OSCAR LITTLE PATIENT (WNR) (M) A 2008 [id number] 2 AN Selected Encounter This section includes the information on record at [place] for the Encounter. Date/Time Encounter Type Encounter Reason Provider Source Description Jul 31, 2019 08:05 Outpatient PRIMARY LUCITA GIL AM Encounter CARE/MEDICINE [...] 20 appointments. The data comes from all [facility]. Appointment Date/Time Appointment Type Appointment Facili ty Name Sep 12, 2019 11:31 AM AMBULATORY - NONE [facility] Social History: Smoking Status (Most [...] 2018 03:08 PM VA-TOBACCO FORMER USER [facility] Tobacco Use History This section includes a history of the smoking, or tobacco-related health factors, that were collected on or before the date of the Encounter. The data comes from the [place] facility where the Encounter took place. Date/Time Smoking Status/Tobacco Use Comment [facility] Jan 14, 2018 03:08 PM VA-TOBACCO QUIT 15 YRS OR MORE [facility] Mar 16, 2017 09:08 AM QUIT TOBACCO USE > 7 YEARS AGO [facility] quit 1983Mar 04, 2016 10:28 AM QUIT TOBACCO USE > 7 YEARS AGO [facility] Quit 1983Mar 10, 2005 10:47 AM HISTORY OF SMOKING WHITE R IVER [facility] 1983Mar 31, 2004 09:26 AM HISTORY OF SMOKING [facility] [place] Mar 31, 2004 09:26 AM QUIT TOBACCO USE > 7 YEARS AGO [facility] Aug 22, 2001 01:30 PM HISTORY OF SMOKING [facility] [place] Advance Directives: All historical and [...] 2014 ADVANCE DIRECTIVE EYAL MONTILLA [facility] Encounter Notes: All associated encounter notes This section contains the clinical notes associated to the Encounter. Date/Time Encounter Note(s) Provider Source Jul 31, 2019 08:05 AM PRIMARY CARE SECURE MESSAGING: Jhoan GILT LOCAL TITLE: PRIMARY CARE SECURE MESSAGING [facility] STANDARD TITLE: PRIMARY CARE SECURE MESSAGING DATE OF NOTE: JUL 31, 2019@08:05:42 ENTRY DATE: JUL 31, 2019@09:05:43 AUTHOR: NURA GIL EXP COSIGNER: URGENCY: STATUS: COMPLETED PRIMARY CARE SECURE MESSAGING Has ADDENDA ------Original Message Sent: 07/30/2019 06:46 PM From: KATHY LITTLE To: Tevin [email or web address] Subject: Hope you are well I reviewed my primary [facility] account and all is ok. If you don't need a blood draw for B-12 level, mony arnold change my September 11 appointment to a Tel-conference. Kathy Little /marcus Gil LPN Signed: 07/31/2019 09:05 Receipt Acknowledged By: 07/31/2019 13:43 /marcus zapata MSN, FACULTY PHYSICIAN Nurse Practitioner Faculty 07/31/2019 ADDENDUM STATUS: COMPLETED That's fine. We can check your B12 when you com e in next. /marcus Arteaga MSN, FACULTY PHYSICIAN Nurse Practitioner Faculty Signed: 07/31/2019 13:44 Receipt Acknowledged By: 07/31/2019 13:46 /marcus Gil LPN 07/31/2019 ADDENDUM STATUS: COMPLETED Secure message from PCP sent to . /marcus Gil LPN Signed: 07/31/2019 13:47
--- OUTSIDE RECORDS SUMMARY | 2020-06-26 09:49 | XMS_ITS ---
:1945 Author Organization [facility] Address [address] [place] [id number] Care Team Providers Name Role Phone MANNY [...] Number Dhillon NICOLE PREFERRED BASIC May 17 [id number] [phone] OSCAR LITTLE P ATIENT [place]BS OF [place] PROVIDER SELF 2002 [phone] AN (FEDERAL) ORGANIZAT ION (PPO) [place]BS OF [place] PREFERRED BASIC May 17 [id number] [phone] OSCAR MACEDO PATIENT FEDERAL PROVIDER SELF 2002 22 4 AN ORGANIZAT ION (PPO) [place]ARK-F PRESCRIPT BCBS May 17 [id number] [phone] OSCAR PASTRANA PATIENT EP BCBS ION FEP 2010 0 [phone] AN PLAN MEDICARE MEDICARE PART Jan 15, PART A [id number] OSCAR LITTLE PATIENT (WNR) (M) A 2008 HU83 2 AN Selected Encounter This section includes the information on record at [facility] for the Encounter. Date/Time Encounter Type Encounter Description Reason Provider Source Apr 30, 2020 10:47 Outpatient Encounter TIFFANIE VARGAS IHMarybel Encounter Template Text not used by VA Plan of Treatment: Future Appointments (+ 6 months) and Future Tests (+/- 45 days) The Plan of Treatment section includes future care activities for the patient from all [place] treatment facilities. This section includes future appointments and future orders which are active, pending or scheduled.Future Appointments This section includes appointments that were scheduled to occur 6 months from the date of the Encounter, up to a maximum of 20 appointments. The data [facility] [place] [facility] Appointment Date/Time Appointment Type Appointment Facili ty Name May 02, 2020 01:30 PM AMBULATORY - [facility] INIC Active, Pending, and [...] the Encounter. The data comes from all [place] treatment facilities. Test Date/Time Test Type Test Details Facility Name May 02, 2020 01:53 PM Laboratory - Chemistry PSA (CLOTH MERCERIZER BACK TENDER) [facility] Order BLOOD(GOLD) SERUM SP [facility] Lab Results: +/- 30 days of the encounter This section includes the Chemistry and Hematology Lab Results on record with [place] for the patient. Radiology Reports and Pathology Reports are provided separately, in subsequent sections.Lab Results This section contains the Chemistry/Hematology Results that were resulted 30 days before or 30 days after the date of the Encounter. Date/Time Source Result Type Result - Unit Interpretation Reference Range Comment May 02, 2020 [facility] LIPOPROTEIN Specimen Type: PLASMA 01:53 PM [facility] CHOLESTEROL FRACT. Comment: Lala ts performed on Kohli Induction Coordination Engineer (405) PANEL Ordering Provide r: MANNY ARTEAGA Report Released Date/Time: Sep 12, 2019 11:58 AM Reporting Lab: [place] [facility] [address] [facility] [place] [address] Performing [facility] [address] [facility] [address] CHOLESTEROL 194 mg/dL 0-199 TRIGLYCERIDE 166 mg/dL H 0-149 HDL CHOLESTEROL 39 mg/dL L >40 LDL CHOLESTEROL (CALC) 122 mg/dl 0-129 May 02, 2020 [facility] GLYCOHEMOGLOBIN (A1C Specimen Ty pe: BLOOD 01:53 PM [facility] ONLY) Comment: Tests performed on Kohli Induction Coordination Engineer (405) Ordering Provide r: MANNY ARTEAGA Report Released Date/Time: Sep 12, 2019 11:58 AM [facility] [address] [facility] [address] Performing Lab: [facility] [address] [facility] [address] HEMOGLOBIN A1C 5.6 % 4.0-5.6 May 02, 2020 [facility] P4 GLU,BUN,CREAT,LYTES,CA Specim en Type: PLASMA 01:53 PM [facility] Comment: Tests performed on Kohli Induction Coordination Engineer (405) Ordering Provide r: MANNY ARTEAGA Report Released Date/Time: Sep 12, 2019 11:58 AM Reporting [facility] [address] [facility] [address] Performing Lab: [facility] [address] [facility] [address] UREA NITROGEN 19 mg/dL 7-25 SODIUM 139 mmol/L 135-145 POTASSIUM 4.3 mmol/L 3.5-5.0 CHLORIDE 104 mmol/L 100-110 CARBON DIOXIDE 28 mmol/L 20-30 ANION GAP 7 mmol/L 4-16 GLUCOSE 93 mg/dL 65-100 CREATININE 1.22 mg/dl 0.5-1.5 CALCIUM 8.9 mg/dL 8.5-10.5 eGFR 58 mL/min L >60 May 02, 2020 01:53 [facility] CBC PROFILE Specimen Type : BLOOD PM [facility] No comment enter ed. Ordering Provide r: MANNY ARTEAGA Report Released Date/Time: Sep 12, 2019 11:58 AM Reporting Lab: [facility] [address] [facility] [address] Performing Lab: [facility] [address] [facility] [address] WBC 5.9 10*3/uL 4.5-11.0 RBC 5.04 10*6/uL [...] 0.00 10*3/uL 0-0 May 02, 2020 01:53 [facility] LIVER PROFILE Specimen Type : PLASMA PM [facility] Comment: Tests performed on Kohli Induction Coordination Engineer (405) Ordering Provide r: MANNY ARTEAGA Report Released Date/Time: Sep 12, 2019 11:58 AM Reporting Lab: [facility] [address] [facility] [address] Performing Lab: [facility] [address] [facility] [address] PROTEIN, TOTAL 7.1 g/dL 6.0-8.5 ALBUMIN 3.9 g/dL 3.2-5.0 BILIRUBIN, TOTAL 0.7 mg/dL 0.2-1.2 ALKALINE PHOSPHATASE 82 U/L 40-150 ALT(SGPT) 27 U/L 7-52 AST(SGOT) 30 U/L 5-34 FIB-4 SCORE 1.82 INDEX <2.67 May 02, 2020 01:52 PM [facility] TSH Spe cimen Type: SERUM Comment: Added by [id number] on May 02, 2020@20:09 Tests performed on Kohli Induction Coordination Engineer (405) Ordering Provide r: TOSHIA OH Report Released Date/Time: Apr 10, 2020 12:14 PM Reporting Lab: [place] [facility] [address] [facility] [place] [address] Performing Lab: [place] [facility] [facility] [address] [facility] [place] [address] TSH 2.02 uIU/mL 0.35-5.00 May 02, 2020 01:52 PM [facility] VITAMIN B-12 Spe cimen Type: SERUM Comment: Added by [email or web address] on May 02, 2020@20:09 Tests performed on Kohli Induction Coordination Engineer (405) Ordering Provide r: TOSHIA OH Report Released Date/Time: Apr 10, 2020 12:14 PM Reporting Lab: [place] [facility] [address] [facility] [place] [address] Performing Lab: [place] [facility] [facility] [address] [facility] [address] VITAMIN B-12 810 pg/mL 200-900 May 02, 2020 01:52 [facility] PSA (CLOTH MERCERIZER BACK TENDER) Specimen Type : [facility] Comment: Added by [id number] on May 02, 2020@20:09 Tests performed on Kohli Induction Coordination Engineer (405) Ordering Provide r: TOSHIA OH Report Released Date/Time: Apr 10, 2020 12:14 PM Reporting Lab: [place] [facility] [address] [facility] [place] [address] Performing Lab: [place] [facility] [address] [facility] [place] [address] PSA (CLOTH MERCERIZER BACK TENDER) <0.10 ng/mL 0-4.0 Social History: Smoking Status (Most current) and Tobacco Use (All prior to encounter date) This section includes the most current, and the historical, smoking and tobacco-related health factors from the [place] facility where the Encounter took place.Current Smoking Status This section includes the most current smoking, or tobacco-related health factor, from the [place] facility where the Encounter took place. Date/Time Current Smoking Status Comment Facility Apr 09, 2020 11:00 AM VA-TOBACCO [facility] [place] [facility] Tobacco Use History This section includes a history of the smoking, or tobacco-related health factors, that were collected on or before the date of the Encounter. The data comes from the [place] facility where the Encounter took place. Date/Time Smoking Status/Tobacco Use Comment [facility] it Apr 09, 2020 11:00 AM VA-TOBACCO QUIT 15 YRS OR MORE [facility] Jan 14, 2018 03:08 PM VA-TOBACCO FORMER USER [facility] Jan 14, 2018 03:08 PM VA-TOBACCO QUIT 15 YRS OR MORE [facility] Mar 16, 2017 09:08 AM QUIT TOBACCO USE > 7 YEARS AGO [facility]A T [facility] quit 1983Mar 04, 2016 10:28 AM QUIT TOBACCO USE > 7 YEARS AGO AD[facility]A ARREOLA T [facility] Quit 1983Mar 10, 2005 10:47 AM H[place] OF SMOKING [place] [facility] 1983Mar 31, 2004 09:26 AM HISTORY OF SMOKING [place] [facility] Mar 31, 2004 09:26 AM QUIT TOBACCO USE > 7 YEARS AGO [facility] T [facility] Aug 22, 2001 01:30 PM HISTORY OF SMOKING [facility] [facility] [facility] Advance Directives: All historical and current Section Date Range: From patient's date of to the date document was created. This section includes ALL of a patient's completed or amended VA Advance and Rescinded Directives. The entries below indicate that a directive exists for the patient, but an actual copy is not included with this document. The data comes from all [place] facilities. Date Advance Directives Provider Source Feb 23, 2014 ADVANCE DIRECTIVE EYAL MONTILLA [facility] Encounter Notes: All associated encounter notes This section contains the clinical notes associated to the Encounter. Date/Time Encounter Note(s) Provider Source Apr 30, 2020 10:47 AM PRIMARY CARE ADMINISTRATIVE NOTE: [place] JANNY [place] ADITYA ARREOLA [facility] LOCAL TITLE: Administrative Note/Primary Care [facility] STANDARD TITLE: PRIMARY CARE ADMINISTRATIVE NOTE DATE OF NOTE: APR 30, 2020@10:47 ENTRY DATE: APR 30, 2020@10:47:04 AUTHOR: TOSHIA OH EXP COSIGNER: MANNY ARTEAGA URGENCY: STATUS: COMPLETED TC to patient, recommended to call the [facility] clinic and provided with number to schedule lab draw there. He wanted to make sure IT AUDIT MANAGER was not upset with him and reassured that we are not, just concerne d for his safety given his recent balance issues per last PCP note. Will f/u f2f in ~3 months or prn, recommended pt to call if any questions and continue to carry Guardian Alert in case of a fa ll or emergency. He requested that at f2f visit, he could get a m ini mental cognition test at next visit and TW confirmed that he could. /chris/ TOSHIA OH Nurse Practitioner Resident Signed: 04/30/2020 10:56 /chris/ Manny Arteaga MSN, SEXUAL HEALTH PHYSICIAN Nurse Practitioner Faculty Cosigned: 04/30/2020 12:23
--- OUTSIDE RECORDS SUMMARY | 2020-06-26 09:50 | XMS_ITS ---
:1945 Author Organization [facility] Address [address] [place] [address] Care Team Providers Name Role Phone MANNY [...] Number Dhillon NICOLE PREFERRED BASIC May 17 [id number] [phone] OSACR LITTLE P ATIENT BCBS OF [place] PROVIDER SELF 2002 [id number] AN (FEDERAL) ORGANIZAT ION (PPO) [place] PREFERRED BASIC May 17 [id number] [phone] OSCAR MACEDO PATIENT FEDERAL PROVIDER SELF 2002 22 4 AN ORGANIZAT ION (PPO) [place]-F PRESCRIPT BCBS May 17 [id number] [phone] FR OSCAR PASTRANA PATIENT EP BCBS ION FEP 2010 0 [phone] AN PLAN MEDICARE MEDICARE PART Jan 15, PART A [id number] OSCAR LITTLE PATIENT (WNR) (M) A 2008 [id number] 2 AN Selected Encounter This section includes the information on record at VA for the Encounter. Date/Time Encounter Type Encounter Description Reason Provider Source May 03, 2020 10:55 Outpatient Encounter TIFFANIE VARGAS IHMarybel Encounter Template Text not used by VA Plan of Treatment: Future Appointments (+ 6 months) and Future Tests (+/- 45 days) The Plan of Treatment section includes future care activities for the patient from all [place] treatment facilities. This section includes future appointments and future orders which are active, pending or scheduled.Active, Pending, and Scheduled Orders This section includes a listing of several types of active, pending, and scheduled orders, including clinic medications orders, diagnostic test orders, procedure orders and cons ult orders; where the start date of the order is 45 days before the date of the Encounter or 45 days after the date of the Encounter. The data comes from all [place] treatment facilities. Test Date/Time Test Type Test Details Facility Name May 02, 2020 01:53 PM Laboratory - Chemistry PSA (PHLEBOTOMY TECHNOLOGIST) [place] Order BLOOD(GOLD) SERUM SP [facility] Lab Results: +/- 30 days [...] Interpretation Reference Range Comment May 02, 2020 [place] LIPOPROTEIN Specimen Type: PLASMA 01:53 PM [facility] CHOLESTEROL FRACT. Comment: Lala ts performed on Kohli Cable Operator (405) PANEL Ordering Provide r: MANNY ARTEAGA Report Released Date/Time: Sep 12, 2019 11:58 AM Reporting Lab: [place] [facility] [address] [facility] [address] Performing Lab: [facility] [address] [facility] [address] CHOLESTEROL 194 mg/dL 0-199 TRIGLYCERIDE 166 mg/dL H 0-149 HDL CHOLESTEROL 39 mg/dL L >40 LDL CHOLESTEROL (CALC) 122 mg/dl 0-129 May 02, 2020 [facility] GLYCOHEMOGLOBIN (A1C Specimen Ty pe: BLOOD 01:53 PM [facility] ONLY) Comment: Tests performed on Kohli Cable Operator (405) Ordering Provide r: MANNY ARTEAGA Report Released Date/Time: Sep 12, 2019 11:58 AM Reporting Lab: [facility] [address] [facility] [address] Performing Lab: [place] [facility] [address] [facility] [address] HEMOGLOBIN A1C 5.6 % 4.0-5.6 May 02, 2020 [facility] P4 GLU,BUN,CREAT,LYTES,CA Specim en Type: PLASMA 01:53 PM [facility] Comment: Tests performed on Kohli Cable Operator (405) Ordering Provide r: MANNY ARTEAGA Report Released Date/Time: Sep 12, 2019 11:58 AM Reporting Lab: [facility] [address] [facility] [address] Performing Lab: [facility] [address] [facility] [address] UREA NITROGEN 19 mg/dL 7-25 SODIUM 139 mmol/L 135-145 POTASSIUM 4.3 mmol/L 3.5-5.0 CHLORIDE 104 mmol/L 100-110 CARBON DIOXIDE 28 mmol/L 20-30 ANION GAP 7 mmol/L 4-16 GLUCOSE 93 mg/dL 65-100 CREATININE 1.22 mg/dl 0.5-1.5 CALCIUM 8.9 mg/dL 8.5-10.5 eGFR 58 mL/min L >60 May 02, 2020 01:53 [facility] CBC PROFILE Specimen Type : BLOOD PM [facility] No comment enter ed. Ordering Provide r: MANNY ARTEAGA Report Released Date/Time: Sep 12, 2019 11:58 AM Reporting Lab: [facility] [address] [facility] [address] Performing Lab: [facility] [address] [facility] [address] WBC 5.9 10*3/uL 4.5-11.0 RBC 5.04 10*6/uL [...] 0.00 10*3/uL 0-0 May 02, 2020 01:53 [facility] LIVER PROFILE Specimen Type : PLASMA PM [facility] Comment: Tests performed on Kohli Videolla (405) Ordering Provide r: MANNY ARTEAGA Report Released Date/Time: Sep 12, 2019 11:58 AM Reporting Lab: [facility] [address] [facility] [address] Performing Lab: [facility] [address] [facility] [address] PROTEIN, TOTAL 7.1 g/dL 6.0-8.5 ALBUMIN 3.9 g/dL 3.2-5.0 BILIRUBIN, TOTAL 0.7 mg/dL 0.2-1.2 ALKALINE PHOSPHATASE 82 U/L 40-150 ALT(SGPT) 27 U/L 7-52 AST(SGOT) 30 U/L 5-34 FIB-4 SCORE 1.82 INDEX <2.67 May 02, 2020 01:52 PM [facility] TSH Spe cimen Type: SERUM Comment: Added by [email or web address] on May 02, 2020@20:09 Tests performed on [email or web address].me (405) Ordering Provide r: TOSHIA OH Report Released Date/Time: Apr 10, 2020 12:14 PM Reporting Lab: [facility] [address] [facility] [address] Performing Lab: [facility] [address] [facility] [address] TSH 2.02 uIU/mL 0.35-5.00 May 02, 2020 01:52 PM [facility] VITAMIN B-12 Spe cimen Type: SERUM Comment: Added by [email or web address] on May 02, 2020@20:09 Tests performed on Kohli Cable Operator (405) Ordering Provide r: TOSHIA OH Report Released Date/Time: Apr 10, 2020 12:14 PM Reporting [facility]: [facility] [address] [facility] [address] [facility]: [facility] [address] [facility] [place] [place] [address] VITAMIN B-12 810 pg/mL 200-900 May 02, 2020 01:52 [facility] PSA (PHLEBOTOMY TECHNOLOGIST) Specimen Type : SERUM [facility] Comment: Added by [email or web address] on May 02, 2020@20:09 Tests performed on Kohli Cable Operator (405) Ordering Provide r: TOSHIA OH Report Released Date/Time: Apr 10, 2020 12:14 PM Reporting Lab: [facility] [address] [facility] [place] [address] Performing Lab: [facility] [address] [facility] [place] [address] PSA (PHLEBOTOMY TECHNOLOGIST) <0.10 ng/mL 0-4.0 Social History: Smoking Status [...] 09, 2020 11:00 AM VA-TOBACCO FORMER USER [facility] Tobacco Use History This section includes a history of the smoking, or tobacco-related health factors, that were collected on or before the date of the Encounter. The data comes from the [place] facility where the Encounter took place. Date/Time Smoking Status/Tobacco Use Comment [facility] Apr 09, 2020 11:00 AM VA-TOBACCO QUIT 15 YRS OR MORE [facility] Jan 14, 2018 03:08 PM VA-TOBACCO FORMER USER [facility] Jan 14, 2018 03:08 PM VA-TOBACCO QUIT 15 YRS OR MORE [facility] Mar 16, 2017 09:08 AM QUIT TOBACCO USE > 7 YEARS AGO ADITYA ARREOLA T [facility] quit 1983Mar 04, 2016 10:28 AM QUIT TOBACCO USE > 7 YEARS AGO ADITYA PRITCHARDT [facility] Quit 1983Mar 10, 2005 10:47 AM HISTORY OF SMOKING ADITYA PRITCHARDT [facility] 1983Mar 31, 2004 09:26 AM HISTORY OF SMOKING [place] [facility] Mar 31, 2004 09:26 AM QUIT TOBACCO USE > 7 YEARS AGO ADITYA ARREOLA T [facility] Aug 22, 2001 01:30 PM HISTORY OF SMOKING ADITYA POLO T [facility] Advance Directives: All historical [...] 2014 ADVANCE DIRECTIVE EYAL MONTILLA [facility] ARREOLA [facility] Encounter Notes: All associated encounter notes This section contains the clinical notes associated to the Encounter. Date/Time Encounter Note(s) Provider Source May 03, 2020 10:55 AM LETTERS: TOSHIA OHMarybel Gato Sivakumar LOCAL TITLE: Letter To Patient [facility] STANDARD TITLE: LETTERS DATE OF NOTE: MAY 03, 2020@10:55 ENTRY DATE: MAY 03, 2020@10:55:40 AUTHOR: TOSHIA OH EXP COSIGNER: MANNY ARTEAGA URGENCY: STATUS: [facility]TED [facility] [address] [place] [address] MAY 03, 2020 MR. KATHY DANIELLEHUBER [address] [place], [place] [address] Dear Mr. Kathy Daniellehuber: Thank you for choosing the [facility] for your health care. Below you will find your lab results. CHOLESTEROL >> NORMAL/SLIGH TLY ELEVATED. I'd like to change your simvastatin to a stronger, more effective medication in the [facility] e medication family called atorvastatin. If you agree t o trying this new medication, please let me know and I will send it to you. CHOL: 194 (05/02/20 13:53) HDL: 39 (05/02/20 13:53) LDL: 122 (05/02/20 13:53) TRI (05/02/20 13:53) LIVER >> NORMAL Collection DT Specimen Test Name Result Units Ref Range 05/02/2020 13:53 PLASMA!! ALBUMIN 3.9 g/dL 3.2 - 5.0 05/02/2020 13:53 PLASMA!! BILIRUBIN, TOTAL 0.7 mg/dL 0.2 - 1.2 05/02/2020 13:53 PLASMA!! ALKALINE PH OSPHAT 82 U/L 40 - 150 05/02/2020 13:53 PLASMA!! ALT(SGPT) 27 U/L 7 - 52 05/02/2020 13:53 PLASMA!! AST(SGOT) 30 U/L 5 - 34 DIABETES >> NORMAL. You do not have diabetes or pre-diabetes. HGB A1C: 5.6 (05/02/20 13:53) PSA >> NORMAL, UNDETECTABLE PSA (PHLEBOTOMY TECHNOLOGIST) 05/02/20 13:52 <0. 10 KIDNEY TESTS >> You have a s light decline in your kidney function which has been ongoing. Your levels are imp roved from your labs in 2019. Your electrolytes are all normal. GLU,BUN,CREAT,LYTES GLUCOSE BUN CREAT S ODIUM K CHLOR CO2 05/02/20 13:53 93 19 1.22 1 39 4.3 104 28 GLU,BUN,CREAT,LYTES ANION eGFR 05/02/20 13:53 7 58 L THYROID >> NORMAL TSH: 2.02 (05/02/20 13:52) VITAMIN B 12 >> NORMAL B12 05/02/20 13:52 810 COMPLETE BLOOD COUNTS >> NORMAL. There are no si gns of infection or anemia MCH: 28.8 (05/02/20 13:53) MCHC: 32.5 (05/02/20 13:53) MCV: 88.5 (05/02/20 13:53) PLT: 241 (05/02/20 13:53) RBC: 5.04 (05/02/20 13:53) RDW: 14.1 (05/02/20 13:53) WBC: 5.9 (05/02/20 13:53) We will plan to see you in clinic in about 3 mon ths. If you have any further questions feel free to call toll free at , ext. [phone] or locally at ,[phone]. [phone]. Please ask for the evar[place] covering Team 6 in [facility]. Please leave a detailed message r elated to your question or concern. We are ready to assist you in your heal th and wellness goals. Sincerely, TOSHIA OH Nurse Practitioner Resident
--- OUTSIDE RECORDS SUMMARY | 2020-06-26 09:50 | XMS_ITS | Encounter Summary ---
:1945 Author Organization [facility] Address [address] [place] [address] Care Team Providers Name Role Phone MANNY [...] Number Dhillon NICOLE PREFERRED BASIC May 17 [id number] [phone] OSCAR LITTLE P ATIENT [place] PROVIDER SELF 2002 [id number] AN (FEDERAL) ORGANIZAT ION (PPO) [place]BS [place] PREFERRED BASIC May 17 [id number] [phone] OSCAR MACEDO PATIENT FEDERAL PROVIDER SELF 2002 22 4 AN ORGANIZAT ION (PPO) [place]-F PRESCRIPT BCBS May 17, [id number] [phone] FR OSCAR PASTRANA PATIENT EP BCBS ION FEP 2010 0 [id number] AN PLAN MEDICARE MEDICARE PART Jan 15, PART A [id number] OSCAR LITTLE PATIENT (WNR) (M) A 2008 [id number] 2 AN Selected Encounter This section includes the information on record at [place] for the Encounter. Date/Time Encounter Type Encounter Reason Provider Source Description Jun 11, 2020 10:12 Outpatient PRIMARY NINI DOMÍNGUEZ AM Encounter CARE/MEDICINE IHE Encounter Template Text not used by [place] Plan of Treatment: Future Appointments (+ 6 months) and Future Tests (+/- 45 days) The Plan of Treatment section includes future care activities for the patient from all [place] treatment facilities. This section includes future appointments [...] the Encounter. The data comes from all [place] treatment facilities. Test Date/Time Test Type Test Details Facility Name May 02, 2020 01:53 PM Laboratory - Chemistry PSA (TELEPHONE LINEWORKER) I [place] Order BLOOD(GOLD) SERUM SP [facility] Social History: Smoking Status (Most current) and Tobacco Use (All prior to encounter date) This section includes the most current, and the historical, smoking and tobacco-related health factors from the [place] facility where the Encounter took place.Current Smoking Status This section includes the most current smoking, or tobacco-related health factor, from the [place] facility where the Encounter took place. Date/Time Current Smoking Status Comment Facility Apr 09, 2020 11:00 AM VA-TOBACCO FORMER USER [facility] [place] [facility] Tobacco Use History This section includes a history of the smoking, or tobacco-related health factors, that were collected on or before the date of the Encounter. The data comes from the [place] facility where the Encounter took place. Date/Time Smoking Status/Tobacco Use Comment [facility] Apr 09, 2020 11:00 AM VA-TOBACCO QUIT 15 YRS OR MORE [place] [facility] Jan 14, 2018 03:08 PM VA-TOBACCO FORMER USER I [place] [facility] Jan 14, 2018 03:08 PM VA-TOBACCO QUIT 15 YRS OR MORE [place] [facility] Mar 16, 2017 09:08 AM QUIT TOBACCO USE > 7 YEARS AGO [place] [facility] quit 1983Mar 04, 2016 10:28 AM QUIT TOBACCO USE > 7 YEARS AGO [place] [facility] Quit 1983Mar 10, 2005 10:47 AM HISTORY OF SMOKING WHITE [place] SCHWARTZER T [facility] 1983Mar 31, 2004 09:26 AM HISTORY OF SMOKING WHITE R IVER [facility] Mar 31, 2004 09:26 AM QUIT TOBACCO USE > 7 YEARS AGO ADITYA ARREOLA [facility] Aug 22, 2001 01:30 PM HISTORY OF SMOKING ADITYA POLO [facility] Advance Directives: All historical and current Section Date Range: From patient's date of to the date document was created. This section includes ALL of a patient's completed or amended [place] Advance and Rescinded Directives. The entries below indicate that a directive exists for the patient, but an actual copy is not included with this document. The data comes from all [place] facilities. Date Advance Directives Provider Source Feb 23, 2014 ADVANCE DIRECTIVE EYAL MONTILLA [facility]WELL [place] [facility] Encounter Notes: All associated encounter notes This section contains the clinical notes associated to the Encounter. Date/Time Encounter Note(s) Provider Source Jun 11, 2020 10:12 AM PRIMARY CARE SECURE MESSAGING: NINI DOMÍNGUEZ [facility] LOCAL TITLE: PRIMARY CARE SECURE MESSAGING STANDARD TITLE: PRIMARY CARE SECURE MESSAGING DATE OF NOTE: JUN 11, 2020@10:12 ENTRY DATE: JUN 11, 2020@10:12:21 AUTHOR: NINI DOMÍNGUEZ EXP COSIGNER: URGENCY: STATUS: COMPLETED ------Original Message Sent: 06/10/2020 02:52 PM From: KATHY LITTLE To: Tevin [facility]AGA[facility]GMF[facility] Subject: Allergic to Doxycycline (hives) Have an appointment (06-22-19)for a State-sponsore d Covid vaccine. But, as to oral medications, I had to disclose the Doxy hiv es issue. Is doxy an issue or is it a State decision? Kathy Little [id number] ------Original Message Sent: 06/11/2020 10:12 AM From: NINI DOMÍNGUEZ To: KATHY LITTLE Subject: Allergic to Doxycycline (hives) Allergies to oral doxy is not a contra-i ndication to getting covid vaccine. It is routine to ask for allergies of any kind. Nini Domínguez, EVER F Team 2 /es/ NINI DAVEY RN Signed: 06/11/2020 10:12
--- OUTSIDE RECORDS SUMMARY | 2020-06-26 09:50 | XMS_ITS ---
:1945 Author Organization [facility] Address [address] [place] [id number] Care Team Providers Name Role Phone MANNY [...] Number Dhillon NICOLE PREFERRED BASIC May 17 [id number] [phone] OSCAR LITTLE P ATIENT [place] PROVIDER SELF 2002 [id number] AN (FEDERAL) ORGANIZAT ION (PPO) [place] PREFERRED BASIC May 17 [id number] [phone] OSCAR MACEDO PATIENT FEDERAL PROVIDER SELF 2002 22 4 AN ORGANIZAT ION (PPO) [place]-F PRESCRIPT BCBS May 17 [id number] [phone] ZEINAOSCAR PATIENT EP BCBS ION FEP 2010 0 [id number] AN PLAN MEDICARE MEDICARE PART Jan 15, PART A [id number] OSCAR LITTLE PATIENT (WNR) (M) A 2008 [id number] 2 AN Selected Encounter This section includes the information on record [facility] for the Encounter. Date/Time Encounter Type Encounter Reason Provider Source Description Jun 26, 2020 08:52 Outpatient TELEPHONE TRIAGE BILLY SANTIAGO AM Encounter IHE Encounter Template Text not used by [facility] Social History: Smoking Status (Most current) and Tobacco Use (All prior to encounter date) This section includes the most current, and the historical, smoking and tobacco-related health factors from the ID facility where the Encounter took place.Current Smoking Status This section includes the most current smoking, or tobacco-related health factor, from the ID facility where the Encounter took place. Date/Time Current Smoking Status Comment Facility Apr 09, 2020 11:00 AM VA-TOBACCO FORMER USER [facility] Tobacco Use History This section includes a history of the smoking, or tobacco-related health factors, that were collected on or before the date of the Encounter. The data comes from the ID facility where the Encounter took place. Date/Time Smoking Status/Tobacco Use Comment [facility] Apr 09, 2020 11:00 AM VA-TOBACCO QUIT 15 YRS OR MORE [place] [facility] Jan 14, 2018 03:08 PM VA-TOBACCO FORMER USER [facility] [facility] Jan 14, 2018 03:08 PM VA-TOBACCO QUIT 15 YRS OR MORE [place] [facility] Mar 16, 2017 09:08 AM QUIT TOBACCO USE > 7 YEARS AGO [place] [facility] quit 1983Mar 04, 2016 10:28 AM QUIT TOBACCO USE > 7 YEARS AGO [place] [facility] Quit 1983Mar 10, 2005 10:47 AM HISTORY OF SMOKING WHITE R IVER T [facility] 1983Mar 31, 2004 09:26 AM HISTORY OF SMOKING WH[place] T [facility] Mar 31, 2004 09:26 AM QUIT TOBACCO USE > 7 YEARS AGO [place] [facility] Aug 22, 2001 01:30 PM HISTORY OF SMOKING WHITE R [facility] Advance Directives: All historical and current Section Date Range: From patient's date of to the date document was created. This section includes ALL of a patient's completed or amended [place] Advance and Rescinded Directives. The entries below indicate that a directive exists for the patient, but an actual copy is not included with this document. The data comes from all ID facilities. Date Advance Directives Provider Source Feb 23, 2014 ADVANCE DIRECTIVE EYAL MONTILLA OCALA [facility] Encounter Notes: All associated encounter notes This section contains the clinical notes associated to the Encounter. Date/Time Encounter Note(s) Provider Source Jun 26, 2020 08:52 AM TELEPHONE ENCOUNTER NOTE: VIKRAM SANTIAGO [facility] STANDARD TITLE: TELEPHONE ENCOUNTER NOTE DATE OF NOTE: JUN 26, 2020@08:52:29 ENTRY DATE: JUN 26, 2020@09:01:16 AUTHOR: VIKRAM SANTIAGO EXP COSIGNER: URGENCY: STATUS: COMPLETED Type of call: SYMPTOM. Caller Response: *AGREE The patient, KATHY LITTLE ([id number]) Phone: called the call center. Comments: lost vision in left eye for about 15 min , his vision has returned but he is wondering if he should go to ED Evaluation/Management Code: HC PRO PHONE CALL 5- 10 MIN ([id number]). Original call started at: JUN 26, 2020 @ 08:50 ( Call was suspended) - MELODIE PRATT JUN 26, 2020@08:50:39 - JUN 26, 2020@08:51:36 Ending at: 06/26/2020 @ 9:00:24 AM Length: 8 minutes. (Call was suspended. 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.) Author: VIKRAM SANTIAGO Caller Area: * [place] Chief Complaint: Loss Of Vision Triage Note Phone Triage Wed Jun 26 2020 08:53:49 GMT-0500 (Eastern Stand jerrod Time) Demographics 75 y/o Male Results CC: Loss Of Vision Nurse Recommendation: Now TEDP Suggestion: Now Nurse Recommended Follow-up Location[facility] Suggested Follow-up Location[facility] Values and Measures Pain scale: denies pain Duration of CC: 20 Minutes Positive Responses HPI: vision loss, new HPI: vision loss, unilateral, sudden onset PMH: hypertension Negative Responses Denies: HPI: difficulty speaking, sudden ons et Denies: HPI: difficulty walking Denies: HPI: diplopia, episodic Denies: HPI: diplopia, sudden onset Denies: HPI: dysarthria, sudden onset Denies: HPI: eye injury Denies: HPI: eye pain Denies: HPI: facial weakness, unilateral, reyna dden onset Denies: HPI: falling to one side Denies: HPI: mental status change, confusion Denies: HPI: numbness in one arm or hand, reyna dden onset Denies: HPI: numbness in one foot or leg, reyna dden onset Denies: HPI: seizure Denies: HPI: unable to walk, sudden onset Denies: HPI: weakness in one arm or hand, reyna dden onset Denies: HPI: weakness in one leg or foot, reyna dden onset Denies: PMH: heart disease Denies: PMH: sickle cell anemia Denies: PMH: stroke or TIA Denies: SOC: smoker Education Verbal Education Provided: Based on your responses, you should be t reated in the emergency room. Take action: You need to see a doctor now or you r condition could worsen. Nurse Notes: will seek ER Evaluation now per TEDP Will go to [facility] in [place], [place] Provided him with CC ER Noti fication number to call within 72 hours of treatment Class Code: Counseling, unspecified. Contact Patient/Caller agrees with plan. Patient's Email Address: [email or web address] VIKRAM SANTIAGO Staff Nurse Signed: 06/26/2020 09:01 Receipt Acknowledged By: * AWAITING SIGNATURE * TOSHIA [place] * AWAITING SIGNATURE * ZULEMA GLASGOW
[2020-06-26 09:57] LABS: Abs Immature Grans 0.04 10^3/uL (0.0-0.06); Absolute Basophil Count 0.03 10^3/uL (0.0-0.2); Absolute Eosinophil Count 0.23 10^3/uL (0.0-0.7); Absolute Lymphocyte Count 1.11 10^3/uL (1.2-3.4); Absolute Neutrophil Count 3.89 10^3/uL (1.2-6.7); Basophils % 0.5; HCT 43.7 % (40.0-50.0); HGB 14.7 g/dL (13.5-17.5); Immature Grans % 0.7; Lymphocytes % 19.5; MCH 28.6 pg (27.0-33.0); MCHC 33.6 % (32.0-36.0); MPV 9.3 fL (8.0-11.0); Neutrophils % 68.3; Nucleated RBC 0 %; Platelet Count 232 10^3/uL (130-400); RBC 5.14 10^6/uL (4.36-5.78); RDW 13.5 % (11.8-14.1); RDW-SD 42.4 fL
--- NOTE | 2020-06-26 10:00 | DI.CT_ITS ---
EXAM: CT HEAD WO CLINICAL HISTORY: sudden vision loss L eye, r/o acute cva. TECHNIQUE: Imaging Protocol: Axial computed tomography images with coronal and sagittal reformatted images were created and reviewed COMPARISON: CT HEAD WITHOUT CONTRAST from 05/14/2015 FINDINGS: Ventricles and Extra axial spaces: Normal in size and morphology for the patient's age. Hemorrhage: None. Cerebral parenchyma: Normal. Midline shift: None. Brainstem/Cerebellum: Normal. Calvarium: Normal. Visualized Paranasal sinuses/Mastoids: Minimal ethmoid sinus disease. Mastoids clear. Soft Tissues: Unremarkable. IMPRESSION: No acute intracranial process. RADIATION DOSE DELIVERED: 841.41mGy.cm Total DLP DATA REPOSITORY: All CT scans at this facility are submitted to the National Radiology Data Registry (NRDR) Dose Index Registry (DIR) with the [employer] (ACR). RADIATION OPTIMIZATION: All CT scans at this facility use at least one of these dose optimization te chniques: automated exposure control; mA and/or kV adjustment per patient size (includes targeted exa ms where dose is matched to clinical indication); or iterative reconstruction.
--- NOTE | 2020-06-26 10:09 | DI.RAD_ITS ---
EXAM: XR CHEST 2V PA LATERAL CLINICAL HISTORY: L eye blurry vision, r/o acute disease TECHNIQUE: 2D digital imaging was performed. COMPARISON: CR CHEST 2 VIEWS PA,LAT from 09/25/2010 CT CHEST FOR PULMONARY EMBOLUS from 05/13/2015 FINDINGS: Aorta: Mildly tortuous. HEART: Normal size. PULMONARY VASCULATURE: Normal. LUNGS: Clear. PLEURAL SPACE: No pleural effusion or pneumothorax. BONE:Normal. . IMPRESSION: No acute pulmonary findings. DATA REPOSITORY: RADIATION DOSE DELIVERED:
[2020-06-26 10:13] LABS: ALT 34 U/L (16-63); AST 30 U/L (15-37); Albumin 3.6 g/dL (3.4-5.0); Alkaline Phosphatase 90 U/L (46-116); BUN 22 mg/dL (7-18); Bilirubin, Total 0.6 mg/dL (0.2-1.0); CREATININE 1.4 mg/dL (0.70-1.30); Calcium 8.8 mg/dL (8.5-10.1); Chloride 103 mmol/L (98-107); Estimated GFR 49.27 (mL/min/1.73m2); Glucose 115 mg/dL (74-106); Magnesium 1.9 mg/dL (1.8-2.4); Potassium 3.9 mmol/L (3.5-5.1); Sodium 141 mmol/L (136-145); Total Protein 7.5 g/dL (6.4-8.2)
[2020-06-26 10:15] LABS: Troponin I < 0.05 ng/mL (<0.06)
[2020-06-26 10:23] LABS: C-Reactive Protein 0.45 mg/dL (0.0-0.3)
--- NOTE | 2020-06-26 12:00 | DI.MRI_ITS ---
CLINICAL HISTORY: sudden vision loss L eye, r/o acute cva. TECHNIQUE: Multiplanar multisequence MRA of the brain was performed. IV Contrast: mL of Magnevist contrast administered. COMPARISON: None. FINDINGS: Carotid Arteries: Petrous: Normal. Cavernous: Normal. Cerebral: Normal. Middle Cerebral Arteries: Right: No aneurysm or significant stenosis. Left: No aneurysm or significant stenosis. Anterior Cerebral Arteries: Right: No aneurysm or significant stenosis. Left: No aneurysm or significant stenosis. The left anterior cerebral artery is supplied via the an terior tear communicating artery, a normal variant.. Vertebral Arteries: Right: No aneurysm or significant stenosis. Left: No aneurysm or significant stenosis. . Basilar Artery: No aneurysm or significant stenosis. Small Vessels: No evidence of beading. IMPRESSION: MRA examination of the [place] within normal limits of anatomic variation.. DATA REPOSITORY:
--- NOTE | 2020-06-26 12:15 | DI.MRI_ITS ---
EXAM: MR ANGIO NECK WO CLINICAL HISTORY: sudden vision loss L eye, r/o acute cva. TECHNIQUE: Multiplanar multisequence MRA of the Neck was performed. COMPARISON: No exams were available for comparison FINDINGS: Common Carotid: Evaluation of the proximal common carotid arteries limited due to motion artifact. Right: No dissection, occlusion or significant stenosis. Left: No dissection, occlusion or significant stenosis. External Carotid: Right: No evidence of occlusion or significant stenosis. Left: No evidence of occlusion or significant stenosis. Internal Carotid: Right: No dissection, occlusion or significant stenosis. Left: No dissection, occlusion or significant stenosis. Vertebral Artery: Right: No dissection, occlusion or significant stenosis. Left: No dissection, occlusion or significant stenosis. The visualized paraspinal soft tissues are unremarkable. IMPRESSION: No evidence of dissection, occlusion or significant stenosis. DATA REPOSITORY:
--- NOTE | 2020-06-26 12:38 | DI.MRI_ITS ---
EXAM: MR BRAIN WO CLINICAL HISTORY: sudden vision loss L eye, r/o9 acute cva. TECHNIQUE: Multiplanar multisequence MRI of the brain was performed. CONTRAST MATERIAL: IV Contrast: ML of Dotarem contrast administered. COMPARISON: MR MRI BRAIN - PITUITARY W/WO from 02/20/2010 MR MRI BRAIN - PITUITARY W/WO from 02/20/2010 FINDINGS: VENTRICLES AND EXTRA AXIAL SPACES: Normal in size and morphology for the patient's age. HEMORRHAGE: None. CEREBRAL PARENCHYMA: No focus of restricted diffusion to suggest acute infarct. No space-occupying le justin identified. No significant white matter lesions. MIDLINE SHIFT: None. BRAINSTEM/CEREBELLUM: Normal. VISUALIZED PARANASAL SINUSES/MASTOIDS: Clear. OTHER FINDINGS: Vascular flow voids are intact. The orbits are unremarkable. IMPRESSION: Unremarkable MRI of the brain. DATA REPOSITORY:
[2020-06-26] MEDS: Clopidogrel 75 MG TAB PO (14:30)
[2020-06-26 15:53] LABS: ESR 27 mm/hr (<or=20)
--- NOTE | 2020-07-12 08:35 | W.ZIOMONITOR ---
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 The predominant rhythm was sinus with an average heart rate of 68. Minimum was 49, maximum 120 There were very rare atrial and ventricular ectopic beats. There was no ventricular tachycardia. There were 2 brief atrial runs, the longest of which was 4 beats in duration There was no atrial fibrillation. There was no high-grade AV block. There were no pauses greater than 2 seconds Patient triggered events corresponded to sinus rhythm, rates ranging from 75-98
== END 2020-06-26 14:57 | disposition home or self-care (01) ==
PROVIDERS: Emergency Provider Physician Assistant
DX: H53.132 Sudden visual loss, left eye (principal); I10 Essential (primary) hypertension
CPT/HCPCS: 36415; 70544; 70547; 80053; 85652; 93005; 93246; 99285; 70450; 70551; 71046; 83735; 84484; 85025; 86140; 93010

== ENCOUNTER 2020-12-05 21:22 | Outpatient (REF) | payer OTHER, BC, SELFPAY ==
[2020-12-05 12:32] LABS: Abs Immature Grans 0.03 10^3/uL (0.0-0.06); Absolute Basophil Count 0.04 10^3/uL (0.0-0.2); Absolute Eosinophil Count 0.19 10^3/uL (0.0-0.7); Absolute Lymphocyte Count 1.44 10^3/uL (1.2-3.4); Absolute Monocyte Count 0.39 10^3/uL (0.1-0.8); Absolute Neutrophil Count 3.84 10^3/uL (1.2-6.7); Basophils % 0.7; Eosinophils % 3.2; HCT 39.9 % (40.0-50.0); HGB 13.2 g/dL (13.5-17.5); Immature Grans % 0.5; Lymphocytes % 24.3; MCH 29.3 pg (27.0-33.0); MCHC 33.1 % (32.0-36.0); MCV 88.5 fL (80-95); MPV 9.7 fL (8.0-11.0); Monocytes % 6.6; Neutrophils % 64.7; Nucleated RBC 0 %; Platelet Count 199 10^3/uL (130-400); RBC 4.51 10^6/uL (4.36-5.78); RDW 13.3 % (11.8-14.1); RDW-SD 43.2 fL; WBC 5.93 10^3/uL (4.4-10.8)
[2020-12-05 12:35] LABS: ESR 29 mm/hr (0-20)
[2020-12-05 12:45] LABS: Anion Gap 8.3 mmol/L (3-11); BUN 19 mg/dL (7-18); C-Reactive Protein 2.06 mg/dL (0.0-0.3); CO2 26.7 mmol/L (21.0-32.0); CREATININE 1.2 mg/dL (0.70-1.30); Calcium 9.2 mg/dL (8.5-10.1); Chloride 107 mmol/L (98-107); Estimated GFR 58.86 (mL/min/1.73m2); Glucose 98 mg/dL (74-106); Potassium 4.4 mmol/L (3.5-5.1); Sodium 142 mmol/L (136-145)
--- OUTSIDE RECORDS SUMMARY | 2020-12-05 21:30 | XMS_ITS | Encounter Summary ---
:1945 Author Organization Department [facility] rs Address [address] [place] [address] Care Team Providers Name Role Phone CHANDLERAISHA DERAST Primary Care Provider Unavailable ANNIE PARRISH Unavailable [...] Number Dhillon ANTHEM PREFERRED BASIC May 17 [id number] [phone] OSCAR LITTLE P ATIENT BCBS OF [place] PROVIDER SELF 2002 [phone] AN (FEDERAL) ORGANIZAT ION (PPO) [place]BS OF [place] PREFERRED BASIC May 17 [id number] [phone] OSCAR MACEDO PATIENT FEDERAL PROVIDER SELF 2002 22 4 AN ORGANIZAT ION (PPO) CAREMARK-F PRESCRIPT BCBS May 17, [id number] [phone] ZEINAOSCAR PATIENT EP BCBS ION FEP 2010 0 [id number] AN PLAN MEDICARE MEDICARE PART Jan 15, PART A [id number] SIDNEY OSCAR PATIENT (WNR) (M) A 2008 [id number] 2 AN Selected Encounter This section includes the information on record at [place] for the Encounter. Date/Time Encounter Type Encounter Reason Provider Source Description Apr 26, 2020 10:51 Outpatient PRIMARY BLACK,TAVIA AM Encounter CARE/MEDICINE [place] IHE Encounter Template Text not used by [place] Plan of Treatment: Future Appointments (+ 6 [...] 20 appointments. The data comes from all [facility]. Appointment Date/Time Appointment Type Appointment Facili ty Name May 02, 2020 01:30 PM AMBULATORY - NONE [facility] Jul 04, 2020 02:00 PM AMBULATORY [place] NONE [place] [facility] Jul 17, 2020 11:15 AM AM[place] [facility] Jul 19, 2020 01:00 PM [place] [facility] Jul 19, 2020 02:00 PM [place] [facility] Jul 22, 2020 09:00 AM AM[place]UL[place]ORY [place]IC[place] [facility] Jul 29, 2020 11:00 AM AMBULATORY - NONE [place] [facility] Jul 31, 2020 11:00 AM AMBULATORY - [place]ATRY [place] [facility] Aug 13, 2020 10:00 AM AMBULATORY [place]ICINE [place] [facility] Aug 21, 2020 10:00 AM AMBULATORY - [place]ICINE [place] [facility] Aug 21, 2020 11:00 AM AMBULATORY [place] [facility] October 02, 2020 10:15 AM AMBULATORY - [place]RY [place] [facility] October 09, 2020 01:00 PM AMBULATORY - MEDICINE [place] [facility] Active, Pending, and Scheduled Orders This section [...] 2020 01:53 PM Laboratory - Chemistry PSA (HAND WEAVER) [place] Order BLOOD(GOLD) SERUM SP [facility] Lab Results: +/- 30 days of the [...] Interpretation Reference Range Comment May 02, 2020 [facility] LIPOPROTEIN Specimen Type: PLASMA 01:53 PM [facility] CHOLESTEROL FRACT. Comment: Tests performed on Kohli Automatic Engraver (405) PANEL Ordering Provider: MANNY ARTEAGA Report Released Date/Time: Sep 12, 2019 11:58 AM Reporting [facility] [address] [address] Performing Lab: [facility] [address] [address] CHOLESTEROL 194 mg/dL 0-199 TRIGLYCERIDE 166 mg/dL H 0-149 HDL CHOLESTEROL 39 mg/dL L >40 LDL CHOLESTEROL (CALC) 122 mg/dl 0-129 May 02, 2020 [facility] GLYCOHEMOGLOBIN (A1C Specimen Type: BLOOD 01:53 PM [facility] ONLY) Comment: Tests performed on [employer] Automatic Engraver (405) Ordering Provider: MANNY ARTEAGA Report Released Date/Time: Sep 12, 2019 11:58 AM Reporting Lab: [place] [facility] [address] [address] Performing Lab: [place] [facility] [address] [address] HEMOGLOBIN A1C 5.6 % 4.0-5.6 May 02, 2020 [facility] GLU,BUN,CREAT,LYTES,CA Specimen Type: PLASMA 01:53 PM [facility] Comment: Tests performed on [employer] Automatic Engraver (405) Ordering Provider: MANNY ARTEAGA Report Released Date/Time: Sep 12, 2019 11:58 AM Reporting Lab: [place] [facility] [address] [address] Performing Lab: [place] [facility] [address] [address] UREA NITROGEN 19 mg/dL 7-25 SODIUM 139 mmol/L 135-145 POTASSIUM 4.3 mmol/L 3.5-5.0 CHLORIDE 104 mmol/L 100-110 CARBON DIOXIDE 28 mmol/L 20-30 ANION GAP 7 mmol/L 4-16 GLUCOSE 93 mg/dL 65-100 CREATININE 1.22 mg/dl 0.5-1.5 CALCIUM 8.9 mg/dL 8.5-10.5 eGFR 58 mL/min L >60 May 02, 2020 01:53 [facility] CBC PROFILE Specimen Type: BLOOD PM [facility] No comment enter ed. Ordering Provider: MANNY ARTEAGA Report Released Date/Time: Sep 12, 2019 11:58 AM Reporting Lab: [facility] [address] [address] Performing Lab: [facility] [address] [facility] [place] [address] WBC 5.9 10*3/uL 4.5-11.0 RBC 5.04 10*6/uL [...] 0-0 May 02, 2020 01:53 [place] LIVER PROFILE Specimen Type: PLASMA PM [facility] Comment: Tests performed on [employer] Automatic Engraver (405) Ordering Provider: MANNY ARTEAGA Report Released Date/Time: Sep 12, 2019 11:58 AM Reporting Lab: [place] [facility] [address] [facility] [place] [facility] [place] [address] Performing Lab: [place] [facility] [address] [facility] [place] [facility] [place] [address] PROTEIN, TOTAL 7.1 g/dL 6.0-8.5 ALBUMIN 3.9 g/dL 3.2-5.0 BILIRUBIN, TOTAL 0.7 mg/dL 0.2-1.2 ALKALINE PHOSPHATASE 82 U/L 40-150 ALT(SGPT) 27 U/L 7-52 AST(SGOT) 30 U/L 5-34 FIB-4 SCORE 1.82 INDEX <2.67 May 02, 2020 01:52 PM [place] [facility] TSH Specimen Type: SERUM Comment: Added by [email or web address] on May 02, 2020@20:09 Tests performed on [employer] Automatic Engraver (405) Ordering Provider: ANNIE PARRISH Report Released Date/Time: Apr 10, 2020 12:14 PM Reporting Lab: [place] [facility] [address] [facility] [place] [facility] [place] [address] Performing Lab: [place] [facility] [address] [facility] [place] [facility] [place] [address] TSH 2.02 uIU/mL 0.35-5.00 May 02, 2020 01:52 PM [place] [facility] VITAMIN B-12 Specimen Type: SERUM Comment: Added by [email or web address] on May 02, 2020@20:09 Tests performed on [employer] Automatic Engraver (405) Ordering Provider: ANNIE PARRISH Report Released Date/Time: Apr 10, 2020 12:14 PM Reporting Lab: [place] [facility] [address] [facility] [place] [facility] [place] [address] Performing Lab: [place] [facility] [address] [facility] [place] [facility] [place] [address] VITAMIN B-12 810 pg/mL 200-900 May 02, 2020 01:52 [place] PSA (HAND WEAVER) Specimen Type: SERUM PM [facility] Comment: Added by Santos on May 02, 2020@20:09 Tests performed on [employer] Automatic Engraver (405) Ordering Provider: ANNIE PARRISH Report Released Date/Time: Apr 10, 2020 12:14 PM Reporting Lab: [facility] [address] [facility] [place] [facility] [place] [address] Performing Lab: [facility] [address] [address] PSA (HAND WEAVER) <0.10 ng/mL 0-4.0 Social History: Smoking Status [...] 2020 11:00 AM VA-TOBACCO FORMER USER [place] [facility] Tobacco Use History This section includes a history of the smoking, or tobacco-related health factors, that were collected on or before the date of the Encounter. The data comes from the [place] facility where the Encounter took place. Date/Time Smoking Status/Tobacco Use Comment [facility] Apr 09, 2020 11:00 AM VA-TOBACCO QUIT 15 YRS OR MORE [place] [facility] Jan 14, 2018 03:08 PM VA-TOBACCO FORMER USER [place] [facility] Jan 14, 2018 03:08 PM VA-TOBACCO QUIT 15 YRS OR MORE [place] [facility] Mar 16, 2017 09:08 AM QUIT TOBACCO USE > 7 YEARS AGO [place] [facility] quit 1983Mar 04, 2016 10:28 AM QUIT TOBACCO USE > 7 YEARS AGO [place] [facility] Quit 1983Mar 10, 2005 10:47 AM H[place] OF SMOKING [place] [facility] 1983Mar 31, 2004 09:26 AM H[place] OF SMOKING [place] [facility] Mar 31, 2004 09:26 AM QUIT TOBACCO USE > 7 YEARS AGO [place] [facility] Aug 22, 2001 01:30 PM H[place]ORY OF SMOKING [place] [facility] Advance Directives: All historical and current Section Date Range: From patient's date of to the date document was created. This section includes ALL of a patient's completed or amended [place] Advance and Rescinded Directives. The entries below indicate that a directive exists for the patient, but an actual copy is not included with this document. The data comes from all [place] facilities. Date Advance Directives Provider Source Feb 23, 2014 ADVANCE DIRECTIVE EYAL MONTILLA [facility] Encounter Notes: All associated encounter notes This section contains the clinical notes associated to the Encounter. Date/Time Encounter Note(s) Provider Source Apr 30, 2020 01:44 PM PRIMARY CARE SECURE MESSAGING: TAVIA PARRISH [facility] TITLE: PRIMARY CARE SECURE MESSAGING [facility] STANDARD TITLE: PRIMARY CARE SECURE MESSAGING DATE OF NOTE: APR 30, 2020@13:44:36 ENTRY DATE: APR 30, 2020@13:44:37 AUTHOR: TAVIA PARRISH EXP COSIGNER: URGENCY: STATUS: COMPLETED ------Original Message Sent: 04/30/2020 12:47 PM From: KATHY LITTLE To: Tevin ARTEAGA[facility] Subject: Seeking Alternate Lab I have an appointment with Elijah italia alegre. Thank you so very much for not giving up on me. Kathy ------Original Message Sent: 04/30/2020 01:43 PM From: TAVIA PARRISH To: KATHY LITTLE Subject: Seeking Alternate Lab Kathy, I have made Manny Arteaga NP and Annie jackson NP aware of your appointment time. Thank you for letting us know. Tavia Parrish RN Team 6 Nurse /es/ TAVIA PARRISH MSN, RN Signed: 04/30/2020 13:44 Receipt Acknowledged By: * AWAITING SIGNATURE * ANNIE PARRISH * AWAITING SIGNATURE * MANNY ARTEAGA Apr 26, 2020 10:51 AM PRIMARY CARE SECURE MESSAGING: TAVIA PARRISH [facility] LOCAL TITLE: PRIMARY CARE SECURE MESSAGING [facility] STANDARD TITLE: PRIMARY CARE SECURE MESSAGING DATE OF NOTE: APR 26, 2020@10:51:34 ENTRY DATE: APR 26, 2020@10:51:34 AUTHOR: TAVIA PARRISH EXP COSIGNER: URGENCY: STATUS: COMPLETED PRIMARY CARE SECURE MESSAGING Has ADDENDA ------Original Message Sent: 04/26/2020 10:45 AM From: KATHY LITTLE To: Tevin ARTEAGA_[facility]_GMFWRJ Subject: Seeking Alternate Lab I am writing to seek your he lp in finding a blood lab that is not as distant as [facility]. You know from your notes, I am often at risk even traveling to my local grocery store. I see two potential options: [facility] Lab is 1/2 mile from my home or [facility] is 18 miles. Thank you Kathy Little [...] ANNIE PARRISH Nurse Practitioner Resident 04/26/2020 13:34 /es/ Manny zapata MSN, MANAGER SOCIAL Nurse Practitioner Faculty 04/29/2020 ADDENDUM STATUS: COMPLETED Latcher sent secure message to patient that provi ders are requesting follow-up with patient and labs can be drawn at this sched uled time. * Signing MSA on to schedule F2F per Jose Lo and Guilherme Arteaga NP for neuro [...]
--- OUTSIDE RECORDS SUMMARY | 2020-12-05 21:30 | XMS_ITS ---
:1945 Author Organization Department [facility] rs Address [address] [place] [address] Care Team Providers Name Role Phone MANNY [...] Number Dhillon ANTHEM PREFERRED BASIC May 17 [id number] [phone] OSCAR LITTLE P ATIENT [place]BS OF [place] PROVIDER SELF 2002 22 [id number] AN (FEDERAL) ORGANIZAT ION (PPO) [place] PREFERRED BASIC May 17 [id number] [phone] OSCAR MACEDO PATIENT FEDERAL PROVIDER SELF 2002 22 4 AN ORGANIZAT ION (PPO) [place]-F PRESCRIPT BCBS May 17, [id number] [phone] FR OSCAR PASTRANA PATIENT EP BCBS ION FEP 2010 0 [id number] AN PLAN MEDICARE MEDICARE PART Jan 15, PART A [id number] OSCAR LITTLE PATIENT (WNR) (M) A 2008 [id number] 2 AN Selected Encounter This section includes the information on record at [place] for the Encounter. Date/Time Encounter Type Encounter Description Reason Provider Source Mar 13, 2020 03:09 Outpatient Encounter ADMIN PAT ACTIVTIES PM (MASNONCT) IHE Encounter Template Text not used by [place] Plan of Treatment: Future Appointments (+ 6 months) and Future Tests (+/- 45 days) The Plan of Treatment section includes future care activities for the patient from all [place] treatment facilities. This section includes future appointments and future orders which are active, pending or scheduled.Future Appointments This section includes appointments that were scheduled to occur 6 months from the date of the Encounter, up to a maximum of 20 appointments. [facility] Appointment Date/Time Appointment Type Appointment Facili ty Name May 02, 2020 01:30 PM AMBULATORY - NONE [facility] Jul 04, 2020 02:00 PM AM[place]ORY [place] NONE [place] [facility] Jul 17, 2020 11:15 AM [place] [facility] Jul 19, 2020 01:00 PM [place] [facility] Jul 19, 2020 02:00 PM [place] [facility] Jul 22, 2020 09:00 AM [place] [facility] Jul 29, 2020 11:00 AM AMBULATORY - NONE [place] [facility] Jul 31, 2020 11:00 AM AM[place] [facility] Aug 13, 2020 10:00 AM [place] [facility] Aug 21, 2020 10:00 AM [place] [facility] Aug 21, 2020 11:00 AM AM[place] [facility] Social History: Smoking Status (Most current) and Tobacco Use (All prior to encounter date) This section includes the most current, and the historical, smoking and tobacco-related health factors from the [place] facility where the Encounter took place.Current Smoking Status This section includes the most current smoking, or tobacco-related health factor, from the [place] facility where the Encounter took place. Date/Time Current Smoking Status Comment Facility Jan 14, 2018 03:08 PM VA-TOBACCO FOR[place] [facility] Tobacco Use History This section includes a history of the smoking, or tobacco-related health factors, that were collected on or before the date of the Encounter. The data comes from the [place] facility where the Encounter took place. Date/Time Smoking Status/Tobacco Use Comment [facility] Jan 14, 2018 03:08 PM VA-TOBACCO QUIT 15 YRS OR MORE [facility] Mar 16, 2017 09:08 AM QUIT TOBACCO USE > 7 YE[address] A[address] [facility] [address] quit 1983Mar 04, 2016 10:28 AM QUIT TOBACCO USE > 7 YEARS AGO [facility] [address] [facility] Quit 1983Mar 10, 2005 10:47 AM HISTORY OF SMOKING [facility] 1983Mar 31, 2004 09:26 AM HISTORY OF SMOKING [facility] Mar 31, 2004 09:26 AM QUIT TOBACCO USE > 7 YEARS AGO [facility] Aug 22, 2001 01:30 PM HISTORY OF SMOKING [facility] Advance Directives: All historical and current Section Date Range: From patient's date of to the date document was created. This section includes ALL of a patient's completed or amended [place] Advance and Rescinded Directives. The entries below indicate that a directive exists for the patient, but an actual copy is not included with this document. The data comes from all [place] facilities. Date Advance Directives Provider Source Feb 23, 2014 ADVANCE DIRECTIVE EYAL MONTILLA [facility] Encounter Notes: All associated encounter notes This section contains the clinical notes associated to the Encounter. Date/Time Encounter Note(s) Provider Source Mar 13, 2020 03:09 PM PRIMARY CARE ADMINISTRATIVE NOTE: DARLING VILLALOBOS Sivakumar LOCAL TITLE: Administrative Note/Primary Care [facility] STANDARD TITLE: PRIMARY CARE ADMINISTRATIVE NOTE DATE OF NOTE: MAR 13, 2020@15:09 ENTRY DATE: MAR 13, 2020@15:09:42 AUTHOR: DARLIGN VILLALOBOS EXP COSIGNER: URGENCY: STATUS: COMPLETED Attempted to call the patient to schedule f2f ap pt with Res TILESETTER 3, the phone rings 5 times then goes to f ast busy signal. Will send letter to request he call . /chris/ DARLING VILLALOBOS Signed: 03/13/2020 15:10
--- OUTSIDE RECORDS SUMMARY | 2020-12-05 21:30 | XMS_ITS | Encounter Summary ---
:1945 Author Organization Department [facility] rs Address [address] [place] [address] Care Team Providers Name Role Phone MANNY [...] Number Dhillon ANTHEM PREFERRED BASIC May 17 [id number] [phone] OSCAR LITTLE P ATIENT BCBS OF [place] PROVIDER SELF 2002 [id number] AN (FEDERAL) ORGANIZAT ION (PPO) BCBS OF [place] PREFERRED BASIC May 17 [id number] [phone] OSCAR MACEDO PATIENT FEDERAL PROVIDER SELF 2002 22 4 AN ORGANIZAT ION (PPO) CAREMARK-F PRESCRIPT BCBS May 17, [id number] [phone] FR ZEINAOSCAR PATIENT EP BCBS ION FEP 2010 0 [id number] AN PLAN MEDICARE MEDICARE PART Jan 15, PART A [id number] OSCAR LITTLE PATIENT (WNR) (M) A 2008 [id number] 2 AN Selected Encounter This section includes the information on record at [place] for the Encounter. Date/Time Encounter Type Encounter [...] Apr 10, 2020 PRIMARY Fall (on) (from) [place] R[place] R 12:01 PM other stairs and A T [facility] steps, initial encounter Apr 10, 2020 SECONDARY Allergic rhinitis, BLACK,TOSHIA WHITE RI JAKUB 12:01 PM unspecified A T [facility] Apr 10, 2020 SECONDARY Generalized anxiety BLACK,TOSHIA WHITE R IVER 12:01 PM disorder A T [facility] Apr 10, 2020 SECONDARY Mild intermittent BLACK,TOSHIA WHITE AYANNA ER 12:01 PM asthma, A T [facility] uncomplicated Apr 10, 2020 SECONDARY Pain in unspecified BLACK,TOSHIA WHITE [place] 12:01 PM knee A [place] [facility] Apr 10, 2020 SECONDARY Unspecified mood BLACK,TOSHIA WHITE RIVE R 12:01 PM [affective] A T [facility] disorder Apr 10, 2020 SECONDARY Unsteadiness on [place] RIVER 12:01 PM feet A [facility] Plan of Treatment: Future Appointments (+ 6 months) and Future Tests (+/- 45 days) The Plan of Treatment section includes future care activities for the patient from all [place] treatment facilities. This section includes future appointments and future orders which are active, pending or scheduled.Future Appointments This section includes appointments that were scheduled to occur 6 months from the date of the Encounter, up to a maximum of 20 appointments. The data comes from all [place] [facility] Appointment Date/Time Appointment Type Appointment Facili ty Name May 02, 2020 01:30 PM AMBULATORY - NONE [facility] Jul 04, 2020 02:00 PM AM[place]ATORY [place] NONE [place] [facility] Jul 17, 2020 11:15 AM AM[place] [facility] Jul 19, 2020 01:00 PM [place] [facility] Jul 19, 2020 02:00 PM [place] [facility] Jul 22, 2020 09:00 AM [place] [facility] Jul 29, 2020 11:00 AM AM[facility]ORY - NONE [place] [facility] Jul 31, 2020 11:00 AM [facility] [place] [facility] Aug 13, 2020 10:00 AM [place] - [place]ICINE [place] [facility] Aug 21, 2020 10:00 AM [place]IC[place] [facility] Aug 21, 2020 11:00 AM AMBULAT[place] - [place]IATRY [place] [facility] October 02, 2020 10:15 AM AMBULATORY - PS[place]IATRY [place] [facility] Active, Pending, and Scheduled Orders This section includes a listing of several types of active, pending, and scheduled orders, including clinic medications orders, diagnostic test orders, procedure orders and consult orders; where the start date of the order is 45 days before the date of the Encounter or 45 days after the date of the Encounter. The data comes from all [place] treatment facilities. Test Date/Time Test Type Test Details Facility Name May 02, 2020 01:53 PM Laboratory - Chemistry PSA (BUSINESS ASST) [facility] Order BLOOD(GOLD) SERUM SP [facility] Lab Results: +/- 30 days of [...] Interpretation Reference Range Comment May 02, 2020 [facility] LIPOPROTEIN Specimen Type: PLASMA 01:53 PM [facility] CHOLESTEROL FRACT. Comment: Tests performed on Kohli Cnc Grinder (405) PANEL Ordering Provider: MANNY ARTEAGA Report Released Date/Time: Sep 12, 2019 11:58 AM Reporting Lab: [facility] [address] [facility] [place] [address] Performing Lab: [facility] [address] [facility] [address] CHOLESTEROL 194 mg/dL 0-199 TRIGLYCERIDE 166 mg/dL H 0-149 HDL CHOLESTEROL 39 mg/dL L >40 LDL CHOLESTEROL (CALC) 122 mg/dl 0-129 May 02, 2020 [facility] GLYCOHEMOGLOBIN (A1C Specimen Type: BLOOD 01:53 PM [facility] ONLY) Comment: Tests performed on Koh[employer] Cnc Grinder (405) Ordering Provider: MANNY ARTEAGA Report Released Date/Time: Sep 12, 2019 11:58 AM Reporting Lab: [facility] [address] [facility] [address] Performing Lab: [facility] [address] [facility] [address] HEMOGLOBIN A1C 5.6 % 4.0-5.6 May 02, 2020 [place] P4 GLU,BUN,CREAT,LYTES,CA Specimen Type: PLASMA 01:53 PM [facility] Comment: Tests performed on Koh[employer] Cnc Grinder (405) Ordering Provider: MANNY ARTEAGA Report Released Date/Time: Sep 12, 2019 11:58 AM Reporting Lab: [facility] [address] [facility] [address] Performing Lab: [facility] [address] [facility] [address] UREA NITROGEN 19 mg/dL 7-25 SODIUM 139 mmol/L 135-145 POTASSIUM 4.3 mmol/L 3.5-5.0 CHLORIDE 104 mmol/L 100-110 CARBON DIOXIDE 28 mmol/L 20-30 ANION GAP 7 mmol/L 4-16 GLUCOSE 93 mg/dL 65-100 CREATININE 1.22 mg/dl 0.5-1.5 CALCIUM 8.9 mg/dL 8.5-10.5 eGFR 58 mL/min L >60 May 02, 2020 01:53 [facility] CBC PROFILE Specimen Type: BLOOD PM [facility] No comment enter ed. Ordering Provider: MANNY ARTEAGA Report Released Date/Time: Sep 12, 2019 11:58 AM Reporting Lab: [place] [facility] [address] [facility] [address] Performing Lab: [place] [facility] [address] [facility] [address] WBC 5.9 10*3/uL 4.5-11.0 RBC 5.04 10*6/uL [...] 0.00 10*3/uL 0-0 May 02, 2020 01:53 [facility] LIVER PROFILE Specimen Type: PLASMA PM [facility] Comment: Tests performed on Striiv (405) Ordering Provider: MANNY ARTEAGA Report Released Date/Time: Sep 12, 2019 11:58 AM Reporting Lab: [facility] [address] [facility] [address] Performing Lab: [facility] [address] [facility] [address] PROTEIN, TOTAL 7.1 g/dL 6.0-8.5 ALBUMIN 3.9 g/dL 3.2-5.0 BILIRUBIN, TOTAL 0.7 mg/dL 0.2-1.2 ALKALINE PHOSPHATASE 82 U/L 40-150 ALT(SGPT) 27 U/L 7-52 AST(SGOT) 30 U/L 5-34 FIB-4 SCORE 1.82 INDEX <2.67 May 02, 2020 01:52 PM [facility] TSH Specimen Type: SERUM Comment: Added by [id number] on May 02, 2020@20:09 Tests performed on Striiv (405) Ordering Provider: BLACK,TOSHIA A Report Released Date/Time: Apr 10, 2020 12:14 PM Reporting Lab: [place] [facility] [address] [facility] [place] [address] Performing Lab: [place] [facility] [address] [facility] [place] [address] TSH 2.02 uIU/mL 0.35-5.00 May 02, 2020 01:52 PM [facility] VITAMIN B-12 Specimen Type: SERUM Comment: Added by [id number] on May 02, 2020@20:09 Tests performed on Kohli Cnc Grinder (405) Ordering Provider: TOSHIA OH Report Released Date/Time: Apr 10, 2020 12:14 PM Reporting Lab: [place] [facility] [address] [facility] [place] [address] Performing Lab: [place] [facility] [address] [facility] [address] VITAMIN B-12 810 pg/mL 200-900 May 02, 2020 01:52 [facility] PSA (BUSINESS ASST) Specimen Type: SERUM PM [facility] Comment: Added by [id number] on May 02, 2020@20:09 Tests performed on Kohli Cnc Grinder (405) Ordering Provider: TOSHIA OH Report Released Date/Time: Apr 10, 2020 12:14 PM Reporting Lab: [place] [facility] [address] [facility] [place] [address] Performing Lab: [place] [facility] [address] [facility] [place] [address] PSA (BUSINESS ASST) <0.10 ng/mL 0-4.0 Social History: Smoking Status (Most current) and Tobacco Use (All prior to encounter date) This section includes the most current, and the historical, smoking and tobacco-related health factors from the [place] facility where the Encounter took place.Current Smoking Status This section includes the most current smoking, or tobacco-related health factor, from the [place] facility where the Encounter took place. Date/Time Current Smoking Status Comment Facility Apr 09, 2020 11:00 AM VA-TOBACCO FOR[place] US[place] [facility] Tobacco Use History This section includes a history of the smoking, or tobacco-related health factors, that were collected on or before the date of the Encounter. The data comes from the [place] facility where the Encounter took place. Date/Time Smoking Status/Tobacco Use Comment [facility] Apr 09, 2020 11:00 AM VA-TOBACCO QUIT 15 YRS OR MORE [facility] Jan 14, 2018 03:08 PM VA-TOBACCO FORMER USER [place] [facility] Jan 14, 2018 03:08 PM VA-TOBACCO QUIT 15 YRS OR MORE [facility] Mar 16, 2017 09:08 AM QUIT TOBACCO USE > 7 YEARS AGO [facility] quit 1983Mar 04, 2016 10:28 AM QUIT TOBACCO USE > 7 YEARS AGO [facility]RE[facility] T [facility] Quit 1983Mar 10, 2005 10:47 AM HISTORY OF SMOKING [place] T [facility] 1983Mar 31, 2004 09:26 AM HISTORY OF SMOKING [place] [facility] Mar 31, 2004 09:26 AM QUIT TOBACCO USE > 7 YEARS AGO [facility] Aug 22, 2001 01:30 PM HISTORY OF SMOKING [place] [facility] Advance Directives: All historical and current Section Date Range: From patient's date of to the date document was created. This section includes ALL of a patient's completed or amended [place] Advance and Rescinded Directives. The entries below indicate that a directive exists for the patient, but an actual copy is not included with this document. The data comes from all [place] facilities. Date Advance Directives Provider Source Feb 23, 2014 ADVANCE DIRECTIVE EYAL MONTILLA [facility] Encounter Notes: All associated encounter notes This section contains the clinical notes associated to the Encounter. Date/Time Encounter Note(s) Provider Source Apr 09, 2020 11:05 AM TELEHEALTH NOTE: TOSHIA OH [facility] LOCAL TITLE: VIDEO-CONNECT NOTE [facility] STANDARD TITLE: TELEHEALTH NOTE DATE OF NOTE: APR 09, 2020@11:05 ENTRY DATE: APR 07, 2020@16:35:10 AUTHOR: TOSHIA OH EXP COSIGNER: MANNY ARTEAGA URGENCY: STATUS: COMPLETED VIDEO-CONNECT NOTE Has ADDENDA seen the [place] Video Connect: [X] Provider confirmed that [place] is currently located at the following address listed in their CPRS chart. [address] [place] [id number] e-911: Call [phone] to speak with an agent who can put you in touch with a air brake operator at the Patient's location. Y ou must have the physical location (address) where the Patient is currentl y located. Verbal informed consent has been obtained. The p atient has been provided with a full explanation of the risks and benefit s of TeleMental Health. 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 Lives in [facility]. 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 Plan to start Symbicort if using albuterol >2x/w [place] #Rhinitis No Covid testing at this serina [...] an Advance Directive on file a t this [facility]. The patient received education about advance directive s as well as written notification of his/her rights. Patient has an up to date Advance Directiv e document on file at this [facility]. No updates are needed at this time. [...] ic plans): Referrals/Consults: Those ordered: physical therapy, jes l work Medication Reconciliation: Outpatient: Has the patient been taking medications as documented in the EMLR? YES: The patient has been taking medicatio ns as documented in the EMLR. Essential Medication List for Review used to complete this medication reconciliation. INCLUDED IN THIS LIST: Alphabetical list o f active outpatient [facility] and dispensed from another [place] or [place] facility (remote) as well as [...] No - Not worried about housing near [facility] In the past three months did you ever run out of food and you were not able to access more food or have the money to buy more food? No - No Food shortage /chris/ TOSHIA [place] Nurse Practitioner Resident Signed: 04/10/2020 12:19 /chris/ Manny Arteaga MSN, BOOM TRUCK DRIVER Nurse Practitioner Faculty Cosigned: 04/12/2020 09:23 04/12/2020 ADDENDUM STATUS: COMPLETED After verbal consent a focused history was obtai jennifer via telephone or VVC concurrently with resident a nd discussion of diagnosis and management held with the resident post call. I reviewed the residents note and agree with the documented findings and plan of care. /chris/ Manny Arteaga MSN, BOOM TRUCK DRIVER Nurse Practitioner Faculty Signed: 04/12/2020 09:24
--- OUTSIDE RECORDS SUMMARY | 2020-12-05 21:31 | XMS_ITS | Encounter Summary ---
:1945 Author Organization Department [facility] rs Address [address] [place] [address] Care Team Providers Name Role Phone CHANDLERAISHA DERAST Primary Care Provider Unavailable TOSHIA [place] Unavailable [...] Number Dhillon ANTHEM PREFERRED BASIC May 17 [id number] [phone] OSCAR LITTLE P ATIENT [place]BS OF [place] PROVIDER SELF 2002 22 [id number] AN (FEDERAL) ORGANIZAT ION (PPO) [place]BS [place] PREFERRED BASIC May 17 [id number] [phone] OSCAR MACEDO PATIENT FEDERAL PROVIDER SELF 2002 22 4 AN ORGANIZAT ION (PPO) [place]-F PRESCRIPT BCBS May 17, [id number] [phone] FR ZEINAOSCAR PATIENT EP BCBS ION FEP 2010 0 [id number] AN PLAN MEDICARE MEDICARE PART Jan 15, PART A [id number] SIDNEY OSCAR PATIENT (WNR) (M) A 2008 HU83 2 AN Selected Encounter This section includes the information [place] at [place] for the Encounter. Date/Time Encounter Type Encounter Reason Provider Source Description Feb 08, 2020 08:08 Outpatient PRIMARY NICODEMUS,AURA-L AM Encounter CARE/MEDICINE EE IHE Encounter Template [...] appointments. The [facility] [place] [facility] Appointment Date/Time Appointment Type Appointment Facili ty Name May 02, 2020 01:30 PM AMBULATORY - NONE [facility] Jul 04, 2020 02:00 PM AMBULATORY - NONE [facility] Jul 17, 2020 11:15 AM AMBULATORY - PS[facility]CHIATRY [facility] Jul 19, 2020 01:00 PM AMBULATORY - REHAB MEDICINE AD[facility]A Hoskins [facility] Jul 19, 2020 02:00 PM AMBULATORY - SURGERY [facility] Jul 22, 2020 09:00 AM AMBULATORY - MEDICINE [facility] Jul 29, 2020 11:00 AM [facility] Jul 31, 2020 11:00 AM AMBULATORY - PS[facility]CHIATRY [facility] Social History: Smoking Status (Most [...] 03:08 PM VA-TOBACCO FORMER USER [place] [facility] Tobacco Use History This section includes a history of the smoking, or tobacco-related health factors, that were collected on or before the date of the Encounter. The data comes from the [place] facility where the Encounter took place. Date/Time Smoking Status/Tobacco Use Comment [facility] Jan 14, 2018 03:08 PM VA-TOBACCO QUIT 15 YRS OR MORE [facility] Mar 16, 2017 09:08 AM QUIT TOBACCO USE > 7 YEARS AGO [facility] quit 1984 Mar 04, 2016 10:28 AM QUIT TOBACCO USE > [facility] YEARS AGO [facility], 2005 10:47 AM HISTORY OF SMOKING [facility]A [facility] 1983Mar 31, 2004 09:26 AM HISTORY OF SMOKING ADITYA [place] T [facility] Mar 31, 2004 09:26 AM QUIT TOBACCO USE > 7 YEARS AGO ADITYA ARREOLA T [facility] Aug 22, 2001 01:30 PM HISTORY OF SMOKING ADITYA [facility] T [facility] Advance Directives: All historical and current Section Date Range: From patient's date of to the date document was created. This section includes ALL of a patient's completed or amended [place] Advance and Rescinded Directives. The entries below indicate that a directive exists for the patient, but an actual copy is not included with this document. The data comes from all [place] facilities. Date Advance Directives Provider Source Feb 23, 2014 ADVANCE DIRECTIVE EYAL MONTILLA [facility] [place] [facility] Encounter Notes: All associated encounter notes This section contains the clinical notes associated to the Encounter. Date/Time Encounter Note(s) Provider Source Feb 08, 2020 08:08 AM PRIMARY CARE SECURE MESSAGING: Jhoan GIL ADITYA ARREOLA [facility] LOCAL TITLE: PRIMARY CARE SECURE MESSAGING [facility] STANDARD TITLE: PRIMARY CARE SECURE MESSAGING DATE OF NOTE: FEB 08, 2020@08:08:12 ENTRY DATE: FEB 08, 2020@09:08:12 AUTHOR: NURA GIL EXP COSIGNER: URGENCY: STATUS: COMPLETED PRIMARY CARE SECURE MESSAGING Has ADDENDA ------Original Message Sent: 02/07/2020 06:07 PM From: KATHY LITTLE To: Tevin [email or web address] Subject: Simvastatin Please issue a new authorization to [place] [facility] for a fill plus 3 of Simvastatin. Thank you Kathy Little [id number] /chris/ Nura Gil MIXING ROLL OPERATOR Signed: 02/08/2020 09:08 Receipt Acknowledged By: 02/12/2020 09:56 /es/ TOSHIA [place] Nurse Practitioner Resident 02/09/2020 15:29 /es/ Manny hoskins MSN, UNIVERSITY EXTENSION SPECIALIST Nurse Practitioner Faculty 02/09/2020 ADDENDUM STATUS: COMPLETED Manny can you please help with this? /es/ TOSHIA [place] Nurse Practitioner Resident Signed: 02/09/2020 15:26 /es/ Manny Arteaga MSN, UNIVERSITY EXTENSION SPECIALIST Nurse Practitioner Faculty Cosigned: 02/09/2020 15:31
--- OUTSIDE RECORDS SUMMARY | 2020-12-05 21:31 | XMS_ITS ---
:1945 Author Organization Department of [facility] rs Address [address] [place] [address] Care Team Providers Name Role Phone CHANDLERAISHA [...] Number Dhillon ANTHEM PREFERRED BASIC May 17 [id number] [phone] OSCAR LITTLE P ATIENT [place]BS OF [place] PROVIDER SELF 2002 22 [id number] AN (FEDERAL) ORGANIZAT ION (PPO) [place]BS OF [place] PREFERRED BASIC May 17 [id number] [phone] OSCAR MACEDO PATIENT FEDERAL PROVIDER SELF 2002 22 4 AN ORGANIZAT ION (PPO) CAREMARK-F PRESCRIPT BCBS May 17, [id number] [phone] OSCAR PASTRANA PATIENT EP BCBS ION FEP 2010 0 [id number] AN PLAN MEDICARE MEDICARE PART Jan 15, PART A [id number] OSCAR LITTLE PATIENT (WNR) (M) A 2008 [id number] 2 AN Selected Encounter This section includes the information on record at [place] for the Encounter. Date/Time Encounter Type Encounter Reason Provider Source Description Apr 09, 2020 Outpatient TELEPHONE PRIMARY ICD-10-CM Z71.89 NELLA CHAUDHARY 02:52 PM Encounter CARE Other specified counseling with Provider Comments: Other specified Counseling IHE Encounter Template Text not used by [facility] Assessments - Encounter Diagnoses This section includes the primary and secondary diagnoses documented forthe Encounter. Date/Time Primary/Secondary Diagnosis Name Provider Source Diagnosis Apr 09, 2020 PRIMARY Other specified HARMONY CHAUDHARY 02:52 PM counseling [facility] Plan of Treatment: Future Appointments (+ 6 months) and Future Tests (+/- 45 days) The Plan of Treatment section includes future care activities for the patient from all [place] treatment facilities. This section includes future appointments and future orders which are active, pending or scheduled.Future Appointments This section includes appointments that were scheduled to occur 6 months from the date of the Encounter, up to a maximum of 20 appointments. The data comes from all [facility]. Appointment Date/Time Appointment Type Appointment Facili ty Name May 02, 2020 01:30 PM AMBULATORY - NONE [facility] [place] Jul 04, 2020 02:00 PM [place]ORY [place]ONE [place] [facility] Jul 17, 2020 11:15 AM [place] [facility] Jul 19, 2020 01:00 PM [place] [facility] Jul 19, 2020 02:00 PM [place]ORY [place] [facility] Jul 22, 2020 09:00 AM [place]ORY [place]IC[place] [facility] Jul 29, 2020 11:00 AM AMBULATORY - NONE [place] [facility] Jul 31, 2020 11:00 AM AM[place]ULATORY - [place]ATRY [place] [facility] Aug 13, 2020 10:00 AM AMBULATORY [place]ICINE [place] [facility] Aug 21, 2020 10:00 AM [place]ORY - [place]ICINE [place] [facility] Aug 21, 2020 11:00 AM AM[place]ULAT[place]RY [place] [facility] October 02, 2020 10:15 AM AMBULATORY - PS[place]CHIATRY [place] [facility] Active, Pending, and Scheduled Orders This section includes a listing of several types of active, pending, and scheduled orders, including clinic medications orders, diagnostic test orders, procedure orders and consult orders; where the start date of the order is 45 days before the date of the Encounter or 45 days after the date of the Encounter. The data comes from all [place] treatment facilities. Test Date/Time Test Type Test Details Facility Name May 02, 2020 01:53 PM Laboratory - Chemistry PSA (FACTORY MANAGER) [place] Order BLOOD(GOLD) SERUM [...] PLASMA 01:53 PM [facility] CHOLESTEROL FRACT. Comment: Tests performed on Kohli Home Inspector (405) PANEL Ordering Provider: MANNY ARTEAGA Report Released Date/Time: Sep 12, 2019 11:58 AM Reporting Lab: [place] [facility] [address] [facility] [place] [address] Performing Lab: [place] [facility] [address] [facility] [place] [address] CHOLESTEROL 194 mg/dL 0-199 TRIGLYCERIDE 166 mg/dL H 0-149 HDL CHOLESTEROL 39 mg/dL L >40 LDL CHOLESTEROL (CALC) 122 mg/dl 0-129 May 02, 2020 [facility] GLYCOHEMOGLOBIN (A1C Specimen Type: BLOOD 01:53 PM [facility] ONLY) Comment: Tests performed on Kohli Home Inspector (405) Ordering Provider: MANNY ARTEAGA Report Released Date/Time: Sep 12, 2019 11:58 AM Reporting Lab: [place] [facility] [address] [facility] [place] [address] Performing Lab: [place] [facility] [address] [facility] [place] [address] HEMOGLOBIN A1C 5.6 % 4.0-5.6 May 02, 2020 [place] P4 GLU,BUN,CREAT,LYTES,CA Specimen Type: PLASMA 01:53 PM [facility] Comment: Tests performed on Kohli Home Inspector (405) Ordering Provider: MANNY ARTEAGA Report Released Date/Time: Sep 12, 2019 11:58 AM Reporting Lab: [place] [facility] [address] [facility] [place] [address] Performing Lab: [place] [facility] [address] [facility] [place] [address] UREA NITROGEN 19 mg/dL 7-25 SODIUM 139 mmol/L 135-145 POTASSIUM 4.3 mmol/L 3.5-5.0 CHLORIDE 104 mmol/L 100-110 CARBON DIOXIDE 28 mmol/L 20-30 ANION GAP 7 mmol/L 4-16 GLUCOSE 93 mg/dL 65-100 CREATININE 1.22 mg/dl 0.5-1.5 CALCIUM 8.9 mg/dL 8.5-10.5 eGFR 58 mL/min L >60 May 02, 2020 01:53 [facility] CBC PROFILE Specimen Type: BLOOD PM [facility] No comment enter ed. Ordering Provider: MANNY ARTEAGA Report Released Date/Time: Sep 12, 2019 11:58 AM Reporting Lab: [facility] [address] [facility] [address] Performing Lab: [facility] [address] [facility] [address] WBC 5.9 10*3/uL 4.5-11.0 RBC 5.04 10*6/uL [...] 10*3/uL 0-0 May 02, 2020 01:53 [facility] LIVER PROFILE Specimen Type: PLASMA PM [facility] Comment: Tests performed on Kohli Home Inspector (405) Ordering Provider: MANNY ARTEAGA Report Released Date/Time: Sep 12, 2019 11:58 AM Reporting Lab: [facility] [address] [facility] [address] Performing Lab: [facility] [address] [facility] [address] PROTEIN, TOTAL 7.1 g/dL 6.0-8.5 ALBUMIN 3.9 g/dL 3.2-5.0 BILIRUBIN, TOTAL 0.7 mg/dL 0.2-1.2 ALKALINE PHOSPHATASE 82 U/L 40-150 ALT(SGPT) 27 U/L 7-52 AST(SGOT) 30 U/L 5-34 FIB-4 SCORE 1.82 INDEX <2.67 May 02, 2020 01:52 PM [facility] TSH Specimen Type: SERUM Comment: Added by [id number] on May 02, 2020@20:09 Tests performed on Kohli Home Inspector (405) Ordering Provider: TOSHIA OH Report Released Date/Time: Apr 10, 2020 12:14 PM Reporting Lab: [facility] [address] [facility] [address] Performing Lab: [facility] [address] [facility] [address] TSH 2.02 uIU/mL 0.35-5.00 May 02, 2020 01:52 PM [facility] VITAMIN B-12 Specimen Type: SERUM Comment: Added by [id number] on May 02, 2020@20:09 Tests performed on Kohli Home Inspector (405) Ordering Provider: TOSHIA OH Report Released Date/Time: Apr 10, 2020 12:14 PM Reporting Lab: [facility] [address] [facility] [address] Performing Lab: [facility] [address] [facility] [address] VITAMIN B-12 810 pg/mL 200-900 May 02, 2020 01:52 [facility] PSA (FACTORY MANAGER) Specimen Type: SERUM PM [facility] Comment: Added by [id number] on May 02, 2020@20:09 Tests performed on Kohli Home Inspector (405) Ordering Provider: TOSHIA OH Report Released Date/Time: Apr 10, 2020 12:14 PM Reporting Lab: [facility] [address] [facility] [place] [address] Performing Lab: [facility] [address] [facility] [address] PSA (FACTORY MANAGER) <0.10 ng/mL 0-4.0 Social History: Smoking Status (Most current) and Tobacco Use (All prior to encounter date) This section includes the most current, and the historical, smoking and tobacco-related health factors from the [place] facility where the Encounter took place.Current Smoking Status This section includes the most current smoking, or tobacco-related health factor, from the [place] facility where the Encounter took place. Date/Time Current Smoking Status Comment Facility Apr 09, 2020 11:00 AM VA-TOBACCO FORMER USER [facility] Tobacco Use History This section includes a history of the smoking, or tobacco-related health factors, that were collected on or before the date of the Encounter. The data comes from the [place] facility where the Encounter took place. Date/Time Smoking Status/Tobacco Use Comment [facility] Apr 09, 2020 11:00 AM VA-TOBACCO QUIT 15 YRS OR MORE [place] [facility] Jan 14, 2018 03:08 PM VA-TOBACCO FORMER USER [place] [facility] Jan 14, 2018 03:08 PM VA-TOBACCO QUIT 15 YRS OR MORE [place] [facility] Mar 16, 2017 09:08 AM QUIT TOBACCO USE > 7 YEARS AGO [place] [facility] quit 1983Mar 04, 2016 10:28 AM QUIT TOBACCO USE > 7 YEARS AGO [place] [facility] Quit 1983Mar 10, 2005 10:47 AM H[place]ORY OF SMOKING [place] [facility] 1983Mar 31, 2004 09:26 AM [place] OF SMOKING [place] [facility] Mar 31, 2004 09:26 AM QUIT TOBACCO USE > 7 YEARS AGO [place] [facility] Aug 22, 2001 01:30 PM H[place]ORY OF SMOKING [place] [facility] Advance Directives: All historical and current Section Date Range: From patient's date of to the date document was created. This section includes ALL of a patient's completed or amended VA Advance and Rescinded Directives. The entries below indicate that a directive exists for the patient, but an actual copy is not included with this document. The data comes from all [place] facilities. Date Advance Directives Provider Source Feb 23, 2014 ADVANCE DIRECTIVE EYAL MONTILLA [place] [facility] Encounter Notes: All associated encounter notes This section contains the clinical notes associated to the Encounter. Date/Time Encounter Note(s) Provider Source Apr 09, 2020 02:52 PM SOCIAL WORK TELEPHONE ENCOUNTER NOTE: HAR[place]Y R[place] LOCAL TITLE: Social Work Telephone Note [facility] STANDARD TITLE: SOCIAL WORK TELEPHONE ENCOUNTER NOTE DATE OF NOTE: APR 09, 2020@14:52 ENTRY DATE: APR 09, 2020@14:52:25 AUTHOR: HARMONY CHAUDHARY COSIGNER: URGENCY: STATUS: COMPLETED PACT CRISTINO called and spoke with [place], i ntroduced myself, and informed that I am following up with him based on PCP rec ommendations to offer resources for some identified needs, including h ousekeeping. CRISTINO asked if he would be opened to microDimensionsing homemaker services, which could be helpful with sorting through garb age and recycling, and would include some light housekeeping. Per 's question, CRISTINO clarified that Homemaker services come at no cost to . CRISTINO explained that the [place] contracts with community agencies like the [facility] t o offer those services to Veterans. [place] acknowledged this and cautiously stated that he would like to think about it before making a commitment to getting t he services. CRISTINO encouraged [place] to please think about it a nd let me know if he feels Homemaker services would be helpful to him. CRISTINO informed of the Wednesday Coffee and Te a Social Group, which was created by Veterans to support other Veterans. Gina Russell explained that the group is currently virtual and being held via [employer]. CRISTINO encouraged [place] to consider joining the group to see if he might enjoy it. Gina Russell agreed to send [place] contact information in the mail for [place] to hannah richardson. CRISTINO asked about his interest in updating Advance Directives, which stated he is thinking about, and CRISTINO agre ed to send [place] Advance Directives paperwork in the mail for his conside ration as needed. SW asked [place] to please send a copy of update Advance Directives to the VA to ensure an updated copy is scanned in his medical record s. [place] agreed to do that. was grateful for the information and sup port offered today. time: 10 mins See letter below sent to in the mail tod ay: April 09, 2020 Mr. Kathy Little [address] [place] [address] [facility] Mr. Little: My name is Harmony Chaudhary. I am a primary care group social worker based at the [facility]. We spoke on the phone today re: Homemake r services, which offer help with some light housekeeping; these se rvices are offered by the VA at no cost to you. The [place] contracts with community agencies lik e the [...] You can join the group by calling [phone] Moderator Code: [id number] followed by the # grey. Please note that as of the contact information for the group will change to [phone] code: [phone]. We would be happy to have you join the group; there is no commitment n eeded, you just drop in when you want. I also enclosed information about the Vet to Vet program, which is a volunteer- based program that offers [place] to Vet eddie companionship and support, and [...] you. You can reach me at ext: [phone]. Kind regards, ARMIDA Chandler Clinical Financial Compliance Examiner Primary Care /es/ ARMIDA CHANDLER PACT Signed: 04/09/2020 15:52
--- OUTSIDE RECORDS SUMMARY | 2020-12-05 21:31 | XMS_ITS | Encounter Summary ---
:1945 Author Organization Department of [facility] rs Address [address] [place] [address] Care Team Providers Name Role Phone CHANDLER, MANNY Primary Care Provider Unavailable TOSHIA OH [...] Number Dhillon ANTHEM PREFERRED BASIC May 17 [id number] [phone] OSCAR LITTLE P ATIENT [place] PROVIDER SELF 2002 22 [id number] AN (FEDERAL) ORGANIZAT ION (PPO) [place] PREFERRED BASIC May 17 [id number] [phone] OSCAR MACEDO PATIENT FEDERAL PROVIDER SELF 2002 22 4 AN ORGANIZAT ION (PPO) [place]-F PRESCRIPT BCBS May 17, [id number] [phone] FR OSCAR PASTRANA PATIENT EP BCBS ION FEP 2010 0 [id number] AN PLAN MEDICARE MEDICARE PART Jan 15, PART A [id number] OSCAR LITTLE PATIENT (WNR) (M) A [...] 20 appointments. The data comes from all [facility]. Appointment Date/Time Appointment Type Appointment Facili ty Name May 02, 2020 01:30 PM AMBULATORY - NONE [facility] Jul 04, 2020 02:00 PM [place]ORY [place] [facility] Jul 17, 2020 11:15 AM AM[place] [facility] Jul 19, 2020 01:00 PM AM[place] [facility] Jul 19, 2020 02:00 PM [place] [facility] Jul 22, 2020 09:00 AM AMBULATORY - MEDICINE [place] [facility] Jul 29, 2020 11:00 AM AMBULATORY - NONE [place] [facility] Jul 31, 2020 11:00 AM AMBULATORY - PS[place]CHIATRY [place] [facility] Aug 13, 2020 10:00 AM AMBULATORY [place] MEDICINE [place] [facility] Aug 21, 2020 10:00 AM AMBULATORY - MEDICINE [place] [facility] Aug 21, 2020 11:00 AM AMBULATORY - PS[place]IATRY [place] [facility] October 02, 2020 10:15 AM AMBULATORY - PS[place]CHIATRY [place] [facility] Active, Pending, and Scheduled Orders This section includes a listing of several types of active, pending, and scheduled orders, including clinic medications orders, diagnostic test orders, procedure orders and consult orders; where the start date of the order is 45 days before the date of the Encounter or 45 days after the date of the Encounter. The data comes from all [place] treatment facilities. Test Date/Time Test Type Test Details Facility Name May 02, 2020 01:53 PM Laboratory - Chemistry [facility]TER[facility]OD(GOLD) SERUM SP [facility] Lab Results: +/- 30 days of the encounter This section includes the Chemistry and Hematology Lab Results on record with CT for the patient. Radiology Reports and Pathology Reports are provided separately, in subsequent sections.Lab Results This section contains the Chemistry/Hematology Results that were resulted 30 days before or 30 days after the date of the Encounter. Date/Time Source Result Type Result - Unit Interpretation Reference Range Comment May 02, 2020 [place] LIPOPROTEIN Specimen Type: PLASMA 01:53 PM [facility]. Comment: Tests performed on Kohli Moth Exterminator (405) PANEL Ordering Provider: MANNY ARTEAGA Report Released Date/Time: Sep 12, 2019 11:58 AM Reporting Lab: [place] [facility] [address] [facility] [address] Performing Lab: [place] [facility] [address] [facility] [address] CHOLESTEROL 194 mg/dL 0-199 TRIGLYCERIDE 166 mg/dL H 0-149 HDL CHOLESTEROL 39 mg/dL L >40 LDL CHOLESTEROL (CALC) 122 mg/dl 0-129 May 02, 2020 [facility] GLYCOHEMOGLOBIN (A1C Specimen Type: BLOOD 01:53 PM [facility]) Comment: Tests performed on Kohli Moth Exterminator (405) Ordering Provider: MANNY ARTEAGA Report Released Date/Time: Sep 12, 2019 11:58 AM Reporting Lab: [facility] [address] [facility] [place] [address] Performing Lab: [facility] [address] [facility] [address] HEMOGLOBIN A1C 5.6 % 4.0-5.6 May 02, 2020 [facility] GLU,BUN,CREAT,LYTES,CA Specimen Type: PLASMA 01:53 PM [facility] Comment: Tests performed on Kohli Moth Exterminator (405) Ordering Provider: MANNY ARTEAGA Report Released Date/Time: Sep 12, 2019 11:58 AM Reporting Lab: [place] [facility] [address] [facility] [place] [address] Performing Lab: [place] [facility] [address] [facility] [address] UREA NITROGEN 19 mg/dL 7-25 SODIUM 139 mmol/L 135-145 POTASSIUM 4.3 mmol/L 3.5-5.0 CHLORIDE 104 mmol/L 100-110 CARBON DIOXIDE 28 mmol/L 20-30 ANION GAP 7 mmol/L 4-16 GLUCOSE 93 mg/dL 65-100 CREATININE 1.22 mg/dl 0.5-1.5 CALCIUM 8.9 mg/dL 8.5-10.5 eGFR 58 mL/min L >60 May 02, 2020 01:53 [facility] CBC PROFILE Specimen Type: BLOOD PM [facility] No comment enter ed. Ordering Provider: MANNY ARTEAGA Report Released Date/Time: Sep 12, 2019 11:58 AM Reporting Lab: [facility] [address] [facility] [address] Performing Lab: [facility] [address] [facility] [address] WBC 5.9 10*3/uL 4.5-11.0 RBC 5.04 10*6/uL [...] 0.00 10*3/uL 0-0 May 02, 2020 01:53 [facility] LIVER PROFILE Specimen Type: PLASMA PM [facility] Comment: Tests performed on gauzz (405) Ordering Provider: MANNY ARTEAGA Report Released Date/Time: Sep 12, 2019 11:58 AM Reporting Lab: [place] [facility] [address] [facility] [place] [address] Performing Lab: [place] [facility] [address] [facility] [address] PROTEIN, TOTAL 7.1 g/dL 6.0-8.5 ALBUMIN 3.9 g/dL 3.2-5.0 BILIRUBIN, TOTAL 0.7 mg/dL 0.2-1.2 ALKALINE PHOSPHATASE 82 U/L 40-150 ALT(SGPT) 27 U/L 7-52 AST(SGOT) 30 U/L 5-34 FIB-4 SCORE 1.82 INDEX <2.67 May 02, 2020 01:52 PM [place] [facility] TSH Specimen Type: SERUM Comment: Added by [email or web address] on May 02, 2020@20:09 Tests performed on Kohli Moth Exterminator (405) Ordering Provider: TOSHIA OH Report Released Date/Time: Apr 10, 2020 12:14 PM Reporting Lab: [place] [facility] [address] [facility] [address] Performing Lab: [place] [facility] [address] [facility] [place] [address] TSH 2.02 uIU/mL 0.35-5.00 May 02, 2020 01:52 PM [place] [facility] VITAMIN B-12 Specimen Type: SERUM Comment: Added by Santos on May 02, 2020@20:09 Tests performed on Kohli Moth Exterminator (405) Ordering Provider: TOSHIA OH Report Released Date/Time: Apr 10, 2020 12:14 PM Reporting Lab: [place] [facility] [address] [facility] [place] [address] Performing Lab: [place] [facility] [address] [facility] [place] [address] VITAMIN B-12 810 pg/mL 200-900 May 02, 2020 01:52 [place] PSA (FISH SALTER) Specimen Type: SERUM PM [facility] Comment: Added by Santos on May 02, 2020@20:09 Tests performed on Kohli Moth Exterminator (405) Ordering Provider: TOSHIA OH Report Released Date/Time: Apr 10, 2020 12:14 PM Reporting Lab: [place] [facility] [address] [facility] [place] [address] Performing Lab: [facility] [address] [facility] [address] PSA (FISH SALTER) <0.10 ng/mL 0-4.0 Social History: Smoking Status [...] 09, 2020 11:00 AM VA-TOBACCO FORMER USER [place] [facility] Tobacco Use History This section includes a history of the smoking, or tobacco-related health factors, that were collected on or before the date of the Encounter. The data comes from the CT facility where the Encounter took place. Date/Time Smoking Status/Tobacco Use Comment [facility] Apr 09, 2020 11:00 AM VA-TOBACCO QUIT 15 YRS OR MORE [place] [facility] Jan 14, 2018 03:08 PM VA-TOBACCO FORMER USER [place] [facility] Jan 14, 2018 03:08 PM VA-TOBACCO QUIT 15 YRS OR MORE [place] [facility] Mar 16, 2017 09:08 AM QUIT TOBACCO USE > 7 YEARS AGO [place] [facility] quit 1983Mar 04, 2016 10:28 AM QUIT TOBACCO USE > 7 YEARS AGO [place] [facility] 1983Mar 10, 2005 10:47 AM H[place] OF SMOKING [place] [facility] 1983Mar 31, 2004 09:26 AM H[place]ORY OF SMOKING [place] [facility] Mar 31, 2004 09:26 AM QUIT TOBACCO USE > 7 YEARS AGO [place] [facility] Aug 22, 2001 01:30 PM HISTORY OF SMOKING [place] [facility] Advance Directives: All historical and current Section Date Range: From patient's date of to the date document was created. This section includes ALL of a patient's completed or amended CT Advance and Rescinded Directives. The entries below indicate that a directive exists for the patient, but an actual copy is not included with this document. The data comes from all CT facilities. Date Advance Directives Provider Source Feb 23, 2014 ADVANCE DIRECTIVE EYAL MONTILLA [facility]
--- OUTSIDE RECORDS SUMMARY | 2020-12-05 21:31 | XMS_ITS | Encounter Summary ---
:1945 Author Organization Department [facility] rs Address [address] [place] [address] Care Team Providers Name Role Phone CHANDLERAISHA [...] Coverage Telephone Name to Policy Number Dhillon ANTHNEGRO PREFERRED BASIC May 17 [id number] OSCAR LITTLE P ATIENT BCBS OF [place] PROVIDER SELF 2002 [id number] AN (FEDERAL) ORGANIZAT ION (PPO) [place] OF [place] PREFERRED BASIC May 17 [id number] [phone] OSCAR AMCEDO PATIENT FEDERAL PROVIDER SELF 2002 22 4 AN ORGANIZAT ION (PPO) CAREMARK-F PRESCRIPT BCBS May 17, [id number] [phone] ZEINAOSCAR PATIENT EP BCBS ION FEP 2010 0 [id number] AN PLAN MEDICARE MEDICARE PART Jan 15, PART A [id number] OSCAR LITTLE PATIENT (WNR) (M) A 2008 [id number] 2 AN Selected Encounter This section includes the information on record at [facility] for the Encounter. Date/Time Encounter Type Encounter Reason Provider Source Description Apr 08, 2020 01:42 Outpatient TELEPHONE TRIAGE NATHAN,ARON HERIN PM Encounter E L IHE Encounter Template [...] 20 appointments. The data comes from all [facility]. Appointment Date/Time Appointment Type Appointment Facili ty Name May 02, 2020 01:30 PM AMBULATORY - NONE [facility] Jul 04, 2020 02:00 PM AM[place]UL[place]ORY [place]ONE [place] [facility] Jul 17, 2020 11:15 AM AM[place] [facility] Jul 19, 2020 01:00 PM [place] [facility] Jul 19, 2020 02:00 PM AM[place]UL[place]ORY [place] [facility] Jul 22, 2020 09:00 AM AMBULATORY - [place]ICINE [place] [facility] Jul 29, 2020 11:00 AM AMBULATORY - NONE [place] [facility] Jul 31, 2020 11:00 AM AMBULATORY - [place]RY [place] [facility] Aug 13, 2020 10:00 AM AMBULATORY - [place]ICINE [place] [facility] Aug 21, 2020 10:00 AM AMBULATORY - [place]ICINE [place] [facility] Aug 21, 2020 11:00 AM AM[place]UL[place]RY [place] [facility] October 02, 2020 10:15 AM AMBULATORY - [place]IATRY [place] [facility] Active, Pending, and Scheduled Orders This section includes a listing of several types of active, pending, and scheduled orders, including clinic medications orders, diagnostic test orders, procedure orders and consult orders; where the start date of the order is 45 days before the date of the Encounter or 45 days after the date of the Encounter. The data comes from all [place] treatment facilities. Test Date/Time Test Type Test Details Facility Name May 02, 2020 01:53 PM Laboratory - Chemistry PSA (MANAGER ADMINISTRATIVE) [place] Order BLOOD(GOLD) SERUM SP [facility] Lab Results: +/- 30 days of [...] [place] LIPOPROTEIN Specimen Type: PLASMA 01:53 PM [facility] CHOLESTEROL FRACT. Comment: Tests performed on Kohli Windows Consultant (405) PANEL Ordering Provider: MANNY ARTEAGA Report Released Date/Time: Sep 12, 2019 11:58 AM Reporting Lab: [place] [facility] [address] [facility] [address] Performing Lab: [place] [facility] [address] [address] CHOLESTEROL 194 mg/dL 0-199 TRIGLYCERIDE 166 mg/dL H 0-149 HDL CHOLESTEROL 39 mg/dL L >40 LDL CHOLESTEROL (CALC) 122 mg/dl 0-129 May 02, 2020 [facility] GLYCOHEMOGLOBIN (A1C Specimen Type: BLOOD 01:53 PM [facility] ONLY) Comment: Tests performed on [employer] Windows Consultant (405) Ordering Provider: MANNY ARTEAGA Report Released Date/Time: Sep 12, 2019 11:58 AM Reporting Lab: [place] [facility] [address] [address] Performing Lab: [place] [facility] [address] [address] HEMOGLOBIN A1C 5.6 % 4.0-5.6 May 02, 2020 [place] P4 GLU,BUN,CREAT,LYTES,CA Specimen Type: PLASMA 01:53 PM [facility] Comment: Tests performed on [employer] Windows Consultant (405) Ordering Provider: MANNY ARTEAGA Report Released Date/Time: Sep 12, 2019 11:58 AM Reporting Lab: [place] [facility] [address] [address] Performing Lab: [place] [facility] [address] [address] UREA NITROGEN 19 mg/dL 7-25 SODIUM 139 mmol/L 135-145 POTASSIUM 4.3 mmol/L 3.5-5.0 CHLORIDE 104 mmol/L 100-110 CARBON DIOXIDE 28 mmol/L 20-30 ANION GAP 7 mmol/L 4-16 GLUCOSE 93 mg/dL 65-100 CREATININE 1.22 mg/dl 0.5-1.5 CALCIUM 8.9 mg/dL 8.5-10.5 eGFR 58 mL/min L >60 May 02, 2020 01:[address] [facility] CBC PROFILE Specimen Type: BLOOD PM [facility] No comment enter ed. Ordering Provider: MANNY ARTEAGA Report Released Date/Time: Sep 12, 2019 11:58 AM Reporting Lab: [facility] [address] [address] Performing Lab: [facility] [address] [facility] [place] [address] WBC 5.9 10*3/uL 4.5-11.0 RBC 5.04 10*6/uL [...] 0.00 10*3/uL 0-0 May 02, 2020 01:[address] [facility] LIVER PROFILE Specimen Type: PLASMA PM [facility] Comment: Tests performed on Socitive (405) Ordering Provider: MANNY ARTEAGA Report Released Date/Time: Sep 12, 2019 11:58 AM Reporting Lab: [place] [facility] [address] [address] Performing Lab: [place] [facility] [address] [address] [address] PROTEIN, TOTAL 7.1 g/dL 6.0-8.5 ALBUMIN 3.9 g/dL 3.2-5.0 BILIRUBIN, TOTAL 0.7 mg/dL 0.2-1.2 ALKALINE PHOSPHATASE 82 U/L 40-150 ALT(SGPT) 27 U/L 7-52 AST(SGOT) 30 U/L 5-34 FIB-4 SCORE 1.82 INDEX <2.67 May 02, 2020 01:52 PM [place] [facility] TSH Specimen Type: SERUM Comment: Added by [id number] on May 02, 2020@20:09 Tests performed on Koh[employer] Windows Consultant (405) Ordering Provider: TOSHIA OH Report Released Date/Time: Apr 10, 2020 12:14 PM Reporting Lab: [place] [facility] [address] [address] Performing Lab: [place] [facility] [address] [address] TSH 2.02 uIU/mL 0.35-5.00 May 02, 2020 01:52 PM [place] [facility] VITAMIN B-12 Specimen Type: SERUM Comment: Added by [email or web address] on May 02, 2020@20:09 Tests performed on Koh[employer] Windows Consultant (405) Ordering Provider: TOSHIA OH Report Released Date/Time: Apr 10, 2020 12:14 PM Reporting Lab: [place] [facility] [address] [facility] [place] [address] Performing Lab: [place] [facility] [address] [address] VITAMIN B-12 810 pg/mL 200-900 May 02, 2020 01:52 [place] PSA (MANAGER ADMINISTRATIVE) Specimen Type: SERUM PM [facility] Comment: Added by [email or web address] on May 02, 2020@20:09 Tests performed on Kohli Windows Consultant (405) Ordering Provider: TOSHIA OH Report Released Date/Time: Apr 10, 2020 12:14 PM Reporting Lab: [place] [facility] [address] [address] Performing Lab: ADITYA ARREOLA Sivakumar [facility] [address] [address] PSA (MANAGER ADMINISTRATIVE) <0.10 ng/mL 0-4.0 Social History: Smoking Status [...] PM VA-TOBACCO FORMER USER [place] ARREOL[facility] Tobacco Use History This section includes a history of the smoking, or tobacco-related health factors, that were collected on or before the date of the Encounter. The data comes from the [place] facility where the Encounter took place. Date/Time Smoking Status/Tobacco Use Comment [facility] Jan 14, 2018 03:08 PM VA-TOBACCO QUIT 15 YRS OR MORE ADITYA ARREOLA [facility] Mar 16, 2017 09:08 AM QUIT TOBACCO USE > 7 YEARS AGO [facility] quit 1983Mar 04, 2016 10:28 AM QUIT TOBACCO USE > 7 YEARS AGO [facility] Quit 1983Mar 10, 2005 10:47 AM HISTORY OF SMOKING [place] [facility] 1983Mar 31, 2004 09:26 AM HISTORY OF SMOKING [place] [facility] Mar 31, 2004 09:26 AM QUIT TOBACCO USE > 7 YEARS AGO [facility] Aug 22, 2001 01:30 PM HISTORY OF SMOKING [place] [facility] Advance Directives: All historical and current Section Date Range: From patient's date of to the date document was created. This section includes ALL of a patient's completed or amended [place] Advance and Rescinded Directives. The entries below indicate that a directive exists for the patient, but an actual copy is not included with this document. The data comes from all [place] facilities. Date Advance Directives Provider Source Feb 23, 2014 ADVANCE DIRECTIVE EYAL MONTILLA [facility] Encounter Notes: All associated encounter notes This section contains the clinical notes associated to the Encounter. Date/Time Encounter Note(s) Provider Source Apr 08, 2020 01:42 PM TELEPHONE ENCOUNTER NOTE: GENESIS EVANS [place] [facility] STANDARD TITLE: TELEPHONE ENCOUNTER NOTE DATE OF NOTE: APR 08, 2020@13:42:14 ENTRY DATE: APR 08, 2020@13:48:05 AUTHOR: PADMINI EVANS EXP COSIGNER: URGENCY: STATUS: COMPLETED VISN 1 CLINICAL CONTACT CENTER Has ADDEND A Type of call: SYMPTOM. Caller Response: *AGREE The patient, KATHY LITTLE ([id number]) Phone: called the call center. Comments: PT called c/o runny nose and other nasal problem s. PT has an appt (f2f) with his provider tomorrow. PT is asking should he come in or not. Please call the PT Evaluation/Management Code: HC PRO PHONE CALL 5- 10 MIN ([phone]). Original call started at: APR 08, 2020 @ 13:38 ( Call was suspended) - GIANNA MARKHAM APR 08, 2020@13:38:38 - APR 08, 2020@13:41:45 Ending at: 04/08/2020 @ 1:47:30 PM Length: 8 minutes. (Call was suspended. This call length is the total amount of time spent active in Tele[employer] Record Feeder Operator Automatic.) Author: PADMINI EVANS Caller Area: * [place] Chief Complaint: Nasal Congestion Triage Note Phone Triage Mon Apr 08 2020 13:43:53 GMT-0500 ([facility] jerrod Time) Demographics 75 y/o Male Results CC: Nasal Congestion Nurse Recommendation: Self-care TEDP Suggestion: Self-care Nurse Recommended Follow-up Location: Clinic , [place] TED Suggested Follow-up Location: Home Values and Measures [...] wheezing, new or worsening Denies: MEDS: antibiotic [place] Education Verbal Education Provided for: Upper Respiratory Infections Home Care Upper Respiratory Infections Home Care C ongestion Upper Respiratory Infections Home Care C ough Upper Respiratory Infections Home Care F ever Upper Respiratory Infections Home Care S ore Throat Upper Respiratory Infections Home Care W arning Signs Upper Respiratory Infections Home Care W tai Nurse Notes: [place] reports runny nose for 2 days. He report s he feels fine otherwise and does not have a fever. He mckeon s an appointment tomorrow and wants to make sure it is ok to come to the clinic with a runny nose. Danish santos has not been around anyone who is known to be sick. Class Code: Nasal Congestion. Contact Patient's Email Address: [email or web address] /chris/ PADMINI Caban [facility] Clinical Contact Center millinery designer Signed: 04/08/2020 13:48 Receipt Acknowledged By: 04/08/2020 14:05 /es/ Manny zapata MSN, SOCIAL WORK CASE MANAGER Nurse Practitioner Faculty 04/08/2020 15:04 /es/ ZULEMA [...] is also agreeable to switching appt w [facility] PCP tomorrow to a VVC. Adding MSAs to assist in scheduling i n COVID/flu clinic. Pt is VVC capable. /es/ ZULEMA GLASGOW Registered Nurse Signed: 04/08/2020 14:16 Receipt Acknowledged By: * AWAITING SIGNATURE * LUZ BUTTERFIELD 04/08/2020 16:41 /es/ BLAIR BRODY 04/08/2020 ADDENDUM STATUS: COMPLETED Left vm for to contact me to do VVC test . Provided my extension [phone] Will try back at a later time /es/ LUZ BUTTERFIELD Signed: 04/08/2020 14:26 04/08/2020 ADDENDUM STATUS: COMPLETED NOTE This information writer contacted this patie nt as the [...] this patient contacts this writ er back. /es/ BLAIR MORENO Signed: 04/08/2020 16:14 Receipt Acknowledged By: * AWAITING SIGNATURE * MANNY ARTEAGA 04/08/2020 16:34 /es/ ZULEMA COLLADO Registered Nurse 04/08/2020 ADDENDUM STATUS: [...] Thank you for trying to reach him. /es/ ZULEMA GLASGOW Registered Nurse Signed: 04/08/2020 16:34 Receipt Acknowledged By: 04/08/2020 16:41 /chris/ BLAIR BRODY 04/08/2020 ADDENDUM STATUS: COMPLETED NOTE Thank you for t he clarification I can call this patient and let him know that the plan is to davie p the original scheduled PCP appt as a VVC visit for tomorrow at 1100am. We will sign off on this pat phillip. /chris/ BLAIR MORENO Signed: 04/08/2020 16:37 Receipt Acknowledged By: * AWAITING SIGNATURE * ZULEMA GLASGOW
--- OUTSIDE RECORDS SUMMARY | 2020-12-05 21:32 | XMS_ITS | Encounter Summary ---
:1945 Author Organization Department of [facility] rs Address [address] [place] [address] Care Team Providers Name Role Phone CHANDLER, [...] Number Dhillon ANTHEM PREFERRED BASIC May 17 [id number] [phone] OSCAR LITTLE P ATIENT [place] PROVIDER SELF 2002 22 [id number] AN (FEDERAL) ORGANIZAT ION (PPO) BCBS [place] PREFERRED BASIC May 17 [id number] [phone] OSCAR MACEDO PATIENT FEDERAL PROVIDER SELF 2002 22 4 AN ORGANIZAT ION (PPO) CAR[place]ARK-F PRESCRIPT BCBS May 17, [id number] [phone] FR OSCAR PASTRANA PATIENT EP BCBS ION FEP 2010 0 [id number] AN PLAN MEDICARE MEDICARE PART Jan 15, PART A [id number] OSCAR LITTLE PATIENT (WNR) (M) A [...] appointments. The [facility] [place] [facility] Appointment Date/Time Appointment Type Appointment Facili ty Name May 02, 2020 01:30 PM AMBULATORY - NONE [facility] Jul 04, 2020 02:00 PM AMBULATORY - NONE [facility] Jul 17, 2020 11:15 AM AMBULATORY - PSYCHIATRY [facility] Jul 19, 2020 01:00 PM AMBULATORY - REHAB MEDICINE [place] [facility] Jul 19, 2020 02:00 PM AMBULATORY - SURGERY [facility] Jul 22, 2020 09:00 AM AMBULATORY - MEDICINE [facility] Immunizations: All administered on the encounter date This section contains immunizations associated to the Encounter. Immunization Series Date Issued Reaction Comments INFLUENZA, SEASONAL, Jan 26, 2020 Partner : [facility]. INJECTABLE, PRESERVATIVE Adm [facility] maria t (NPI=Not Provided). Part ner Lot#: [id number] Mfr: SEQIRUS INFLUENZA, UNSPECIFIED Jan 26, 2020 [...] 03:08 PM VA-TOBACCO FORMER USER [facility] Tobacco Use History This section includes a history of the smoking, or tobacco-related health factors, that were collected on or before the date of the Encounter. The data comes from the [place] facility where the Encounter took place. Date/Time Smoking Status/Tobacco Use Comment [facility] Jan 14, 2018 03:08 PM VA-TOBACCO QUIT 15 YRS OR MORE ADITYA ARREOLA RANDEE [facility] Mar 16, 2017 09:08 AM QUIT TOBACCO USE > 7 YEARS AGO ADITYA ARREOLA [facility] quit 1983Mar 04, 2016 10:28 AM QUIT TOBACCO USE > 7 YEARS AGO ADITYA ARREOLA Sivakumar [facility] Quit 1983Mar 10, 2005 10:47 AM HISTORY OF SMOKING ADITYA POLO [facility] 1983Mar 31, 2004 09:26 AM HISTORY OF SMOKING ADITYA POLO [facility] Mar 31, 2004 09:26 AM QUIT TOBACCO USE > 7 YEARS AGO ADITYA ARREOLA [facility] Aug 22, 2001 01:30 PM HISTORY OF SMOKING ADITYA POLO [facility] Advance Directives: All historical and current [...] Feb 23, 2014 ADVANCE DIRECTIVE EYAL MONTILLA [facility]
--- OUTSIDE RECORDS SUMMARY | 2020-12-05 21:32 | XMS_ITS | Encounter Summary ---
:1945 Author Organization Department [facility] rs Address [address] [place] [address] Care Team Providers Name Role Phone CHANDLERAISHA [...] Number Dhillon ANTHEM PREFERRED BASIC May 17 [id number] [phone] OSCAR LITTLE P ATIENT [place] PROVIDER SELF 2002 22 [id number] AN (FEDERAL) ORGANIZAT ION (PPO) [place] PREFERRED BASIC May 17 [id number] [phone] OSCAR MACEDO PATIENT FEDERAL PROVIDER SELF 2002 22 4 AN ORGANIZAT ION (PPO) CAREMARK-F PRESCRIPT BCBS May 17, [id number] [phone] FR ZEINAOSCAR PATIENT EP BCBS ION FEP 2010 0 [id number] AN PLAN MEDICARE MEDICARE PART Jan 15, PART A [id number] SIDNEY OSCAR PATIENT (WNR) (M) A 2008 [id number] 2 AN Selected Encounter This section includes the information on record at [place] for the Encounter. Date/Time Encounter Type Encounter Reason Provider Source Description Jan 26, 2020 11:48 Outpatient PRIMARY NICODEMUS,AURA-L AM Encounter CARE/MEDICINE EE IHE Encounter Template Text not used by [place] Plan of Treatment: Future Appointments (+ 6 months) and Future Tests (+/- 45 days) The Plan of Treatment section includes future care activities for the patient from all [place] treatment facilities. This section includes future appointments and future orders which are active, pending or scheduled.Future Appointments This section includes appointments that were scheduled to occur 6 months from the date of the Encounter, up to a maximum of 20 appointments. The data [facility] [place] [facility] Appointment Date/Time Appointment Type Appointment Facili ty Name May 02, 2020 01:30 PM AMBULATORY - NONE [facility] Jul 04, 2020 02:00 PM AMBULATORY - NONE [facility] Jul 17, 2020 11:15 AM AMBULATORY - PSYCHIATRY [facility] T [facility] Jul 19, 2020 01:00 PM AMBULATORY - REHAB MEDICINE ADITYA Hoskins [facility] Jul 19, 2020 02:00 PM [facility] Jul 22, 2020 09:00 AM AMBULATORY - MEDICINE [facility] Social History: Smoking Status (Most current) and Tobacco Use (All prior to encounter date) This section includes the most current, and the historical, smoking and tobacco-related health factors from the [place] facility where the Encounter took place.Current Smoking Status This section includes the most current smoking, or tobacco-related health factor, from the [place] facility where the Encounter took place. Date/Time Current Smoking Status Comment Facility Jan 14, 2018 03:08 PM VA-TOBACCO FORMER USER [facility] Tobacco Use History This section includes a history of the smoking, or tobacco-related health factors, that were collected on or before the date of the Encounter. The data comes from the [place] facility where the Encounter took place. Date/Time Smoking Status/Tobacco Use Comment [facility] it Jan 14, 2018 03:08 PM VA-TOBACCO QUIT [address] [facility] Mar 16, 2017 09:08 AM QUIT TOBACCO USE > [address] [facility] quit 1983Mar 04, 2016 10:28 AM QUIT TOBACCO USE > [address] [facility] Quit 1983Mar 10, 2005 10:47 AM HISTORY OF SMOKING ADITYA POLO [facility] 1983Mar 31, 2004 09:26 AM HISTORY OF SMOKING ADITYA PRITCHARDT [facility] Mar 31, 2004 09:26 AM QUIT TOBACCO USE > 7 YEARS AGO ADITYA PRITCHARDT [facility] Aug 22, 2001 01:30 PM HISTORY OF SMOKING ADITYA POLO T [facility] Advance Directives: All historical and current Section Date Range: From patient's date of to the date document was created. This section includes ALL of a patient's completed or amended [place] Advance and Rescinded Directives. The entries below indicate that a directive exists for the patient, but an actual copy is not included with this document. The data comes from all [place] facilities. Date Advance Directives Provider Source Feb 23, 2014 ADVANCE DIRECTIVE EYAL MONTILLA ADITYA ARREOLA [place] T [facility] Encounter Notes: All associated encounter notes This section contains the clinical notes associated to the Encounter. Date/Time Encounter Note(s) Provider Source Jan 26, 2020 11:48 AM PRIMARY CARE SECURE MESSAGING: Jhoan GIL T LOCAL TITLE: PRIMARY CARE SECURE MESSAGING [facility] STANDARD TITLE: PRIMARY CARE SECURE MESSAGING [...] able. Kathy Little [id number] /chris/ Nura Gil SPIKE DRIVER Signed: 01/26/2020 12:48 Receipt Acknowledged By: 01/26/2020 13:09 /chris/ Manny hoskins MSN, FACILITY ATTENDANT Nurse Practitioner Faculty
--- OUTSIDE RECORDS SUMMARY | 2020-12-05 21:32 | XMS_ITS | Encounter Summary ---
:[address] [facility] Address [address] [place] [address] Care Team Providers Name Role Phone CHANDLERAISHA [...] Number Dhillon ANTHEM PREFERRED BASIC May 17 [id number] [phone] OSCAR LITTLE P ATIENT [place]BS [place] PROVIDER SELF 2002 22 [id number] AN (FEDERAL) ORGANIZAT ION (PPO) [place]BS [place] PREFERRED BASIC May 17 [id number] [phone] OSCAR MACEDO PATIENT FEDERAL PROVIDER SELF 2002 22 4 AN ORGANIZAT ION (PPO) [place]-F PRESCRIPT BCBS May 17, [id number] [phone] FR ZEINAOSCAR PATIENT EP BCBS ION FEP 2010 0 [id number] AN PLAN MEDICARE MEDICARE PART Jan 15, PART A [id number] SIDNEY OSCAR PATIENT (WNR) (M) A 2008 HU83 2 AN Selected Encounter This section includes the information on record at [place] for the Encounter. Date/Time Encounter Type Encounter Reason Provider Source Description Dec 15, 2019 11:11 Outpatient PRIMARY TYRESE HOWELL AM Encounter CARE/MEDICINE IHE Encounter Template Text not used by [place] Plan of Treatment: Future Appointments (+ 6 months) and Future Tests (+/- 45 days) The Plan of Treatment section includes future care activities for the patient from all [place] treatment facilities. This section includes future appointments and future orders which are active, pending or scheduled.Future Appointments This section includes appointments that were scheduled to occur 6 months from the date of the Encounter, up to a maximum of 20 appointments. The [facility] [place] [facility] Appointment Date/Time Appointment Type Appointment Facili ty Name May 02, 2020 01:30 PM AMBULATORY - NONE [facility] Social History: Smoking Status (Most current) and Tobacco Use (All prior to encounter date) This section includes the most current, and the historical, smoking and tobacco-related health factors from the [place] facility where the Encounter took place.Current Smoking Status This section includes the most current smoking, or tobacco-related health factor, from the [place] facility where the Encounter took place. Date/Time Current Smoking Status Comment Facility Jan 14, 2018 03:08 PM VA-TOBACCO FORMER USER [place] [facility] Tobacco Use History This section includes a history of the smoking, or tobacco-related health factors, that were collected on or before the date of the Encounter. The data comes from the [place] facility where the Encounter took place. Date/Time Smoking Status/Tobacco Use Comment [facility] Jan 14, 2018 03:08 PM VA-TOBACCO QUIT 15 YRS OR MORE [place] [facility] Mar 16, 2017 09:08 AM QUIT TOBACCO USE > 7 YEARS AGO [facility] quit 1983Mar 04, 2016 10:28 AM QUIT TOBACCO USE > 7 YEARS AGO [facility] Quit 1983Mar 10, 2005 10:47 AM HISTORY OF SMOKING [place] [facility] 1983Mar 31, 2004 09:26 AM HISTORY OF SMOKING [place] [facility] Mar 31, 2004 09:26 AM QUIT TOBACCO USE > 7 YEARS AGO [facility] Aug 22, 2001 01:30 PM HISTORY OF SMOKING [place] [facility] Advance Directives: All historical and current Section Date Range: From patient's date of to the date document was created. This section includes ALL of a patient's completed or amended [place] Advance and Rescinded Directives. The entries below indicate that a directive exists for the patient, but an actual copy is not included with this document. The data comes from all [place] facilities. Date Advance Directives Provider Source Feb 23, 2014 ADVANCE DIRECTIVE EYAL MONTILLA T [facility] Encounter Notes: All associated encounter notes This section contains the clinical notes associated to the Encounter. Date/Time Encounter Note(s) Provider Source Dec 15, 2019 11:11 AM PRIMARY CARE SECURE MESSAGING: JEANETH HOWELLT LOCAL TITLE: PRIMARY CARE SECURE MESSAGING [facility] STANDARD TITLE: PRIMARY CARE SECURE MESSAGING DATE OF NOTE: DEC 15, 2019@11:11:25 ENTRY DATE: DEC 15, 2019@12:11:26 AUTHOR: TYRESE HOWELL EXP COSIGNER: URGENCY: STATUS: COMPLETED ------Original Message Sent: 12/15/2019 11:33 AM From: KATHY LITTLE To: Tevin ARTEAGA[facility]GMF[facility] Subject: Hearing Loss Using the finger in the ear test, I have found t he right ear to be X and the left ear to be 30% of X. I have been using caption television to augment the sound. Friends and family have encouraged me to get a hearing test. BleaKthy oakes ([id number]) ------Original Message Sent: 12/15/2019 12:11 PM From: [...] By: 12/15/2019 12:28 /chris/ Manny zapata MSN, RECRUITING CONSULTANT Nurse Practitioner Faculty
--- OUTSIDE RECORDS SUMMARY | 2020-12-05 21:32 | XMS_ITS | Encounter Summary ---
:1945 Author Organization Department [facility] rs Address [address] [place] [address] Care Team Providers Name Role Phone CHANDLERAISHA [...] Number Dhillon ANTHEM PREFERRED BASIC May 17 [id number] [phone] OSCAR LITTLE P ATIENT [place]BS OF [place] PROVIDER SELF 2002 22 [id number] AN (FEDERAL) ORGANIZAT ION (PPO) [place]BS OF [place] PREFERRED BASIC May 17 [id number] [phone] OSCAR MACEDO PATIENT FEDERAL PROVIDER SELF 2002 22 4 AN ORGANIZAT ION (PPO) [place]-F PRESCRIPT BCBS May 17, [id number] [phone] FR ZEINAOSCAR PATIENT EP BCBS ION FEP 2010 0 [id number] 331 AN PLAN MEDICARE MEDICARE PART Jan 15, PART A [id number] SIDNEY OSCAR PATIENT (WNR) (M) A 2008 HU83 2 AN Selected Encounter This section includes the information on record at [place] for the Encounter. Date/Time Encounter Type Encounter Reason Provider Source Description Jan 25, 2020 02:47 Outpatient PRIMARY NICODEMUS,AURA-L PM Encounter CARE/MEDICINE EE IHE Encounter Template [...] appointments. The data comes from all [place] [facility] Appointment Date/Time Appointment Type Appointment Facili ty Name May 02, 2020 01:30 PM AMBULATORY - NONE [facility] Jul 04, 2020 02:00 PM AMBULATORY - NONE [facility] Jul 17, 2020 11:15 AM AMBULATORY - PSYCHIATRY [facility] Jul 19, 2020 01:00 PM AMBULATORY - REHAB MEDICINE ADITYA Hoskins [facility] Jul 19, 2020 02:00 PM [facility] Jul 22, 2020 09:00 AM AMBULATORY - MEDICINE [facility] Social History: Smoking Status (Most [...] 03:08 PM VA-TOBACCO FORMER USER [place] [facility] Tobacco Use History This section includes a history of the smoking, or tobacco-related health factors, that were collected on or before the date of the Encounter. The data comes from the [place] facility where the Encounter took place. Date/Time Smoking Status/Tobacco Use Comment [facility] it Jan 14, 2018 03:08 PM [place]-TOBACCO QUIT 15 YRS OR MORE [facility] Mar 16, 2017 09:08 AM QUIT TOBACCO USE > 7 YEARS AGO [facility] quit 1983Mar 04, 2016 10:28 AM QUIT TOBACCO USE > 7 YEARS AGO [facility] Quit 1983Mar 10, 2005 10:47 AM HISTORY OF SMOKING ADITYA POLO [facility] 1983Mar 31, 2004 09:26 AM HISTORY OF SMOKING ADITYA POLO T [facility] Mar 31, 2004 09:26 AM QUIT TOBACCO USE > 7 YEARS AGO ADITYA ARREOLA T [facility] Aug 22, 2001 01:30 PM HISTORY OF SMOKING ADITYA POLO T [facility] Advance Directives: All historical and [...] DIRECTIVE EYAL MONTILLA ADITYA ARREOLA [place] [facility] Encounter Notes: All associated encounter notes This section contains the clinical notes associated to the Encounter. Date/Time Encounter Note(s) Provider Source Jan 26, 2020 11:49 AM PRIMARY CARE SECURE MESSAGING: Jhoan GILT LOCAL TITLE: PRIMARY CARE SECURE MESSAGING [facility] STANDARD TITLE: PRIMARY CARE SECURE MESSAGING DATE OF NOTE: JAN 26, 2020@11:49:36 ENTRY DATE: JAN 26, 2020@12:49:37 AUTHOR: NURA GIL EXP COSIGNER: URGENCY: STATUS: COMPLETED PRIMARY CARE SECURE MESSAGING Has ADDENDA ------Original Message Sent: 01/26/2020 12:27 PM From: KATHY LITTLE To: Tevin ARTEAGA_[email or web address] Subject: Annual Inspection I received the flu shot at the [facility] on 01-26-20. Flaud (65+) PFS INJ 0.5ML Let me know if I should self enter the data to y online record. Kathy Little [id number] /chris/ Nura Gil ICER AIR CONDITIONING Signed: 01/26/2020 12:49 Receipt Acknowledged By: 01/26/2020 13:08 /chris/ Manny hoskins MSN, EXPELLER WORKER Nurse Practitioner Faculty 01/26/2020 ADDENDUM STATUS: COMPLETED Influenza Immunization: The patient has received the seasonal infl uenza vaccine for the current season at another location. Date: January 26, 2020 Location: [facility] /chris/ Nura Gil LPN Signed: 01/26/2020 12:51 Jan 25, 2020 02:47 PM PRIMARY CARE SECURE MESSAGING: Jhoan GIL [place] LOCAL TITLE: PRIMARY CARE SECURE MESSAGING [facility] STANDARD TITLE: PRIMARY CARE SECURE MESSAGING DATE OF NOTE: JAN 25, 2020@14:47:25 ENTRY DATE: JAN 25, 2020@15:47:25 AUTHOR: NURA GIL EXP COSIGNER: URGENCY: STATUS: COMPLETED PRIMARY CARE SECURE MESSAGING Has ADDENDA ------Original Message Sent: 01/25/2020 02:02 PM From: KATHY LITTLE To: Tevin ARTEAGA_[email or web address] Subject: Annual Inspection If I can find a free flu shot locally, would it be helpful to delay the check-up until spring. Kathy Little [id number] /chris/ Nura Gil LPN Signed: 01/25/2020 15:47 Receipt Acknowledged By: 01/25/2020 16:18 /marcus hoskins MSN, EXPELLER WORKER Nurse Practitioner Faculty 01/25/2020 ADDENDUM STATUS: COMPLETED If he is feeling well, we can wait until spring /marcus Arteaga MSN, EXPELLER WORKER Nurse Practitioner Faculty Signed: 01/25/2020 16:19 Receipt Acknowledged By: 01/25/2020 16:37 /marcus Gil LPN 01/25/2020 ADDENDUM STATUS: COMPLETED Secure message from PCP sent to [facility]. /chris/ Nura Gil LPN Signed: 01/25/2020 16:38
--- OUTSIDE RECORDS SUMMARY | 2020-12-05 21:32 | XMS_ITS | Encounter Summary ---
:1945 Author Organization Department [facility] rs Address [address] [place] [address] Care Team Providers Name Role Phone CHANDLERAISHA [...] Number Dhillon ANTHEM PREFERRED BASIC May 17 [id number] [phone] OSCAR LITTLE P ATIENT BCBS OF [place] PROVIDER SELF 2002 22 [id number] AN (FEDERAL) ORGANIZAT ION (PPO) BCBS OF [place] PREFERRED BASIC May 17 [id number] [phone] OSCAR MACEDO PATIENT FEDERAL PROVIDER SELF 2002 22 4 AN ORGANIZAT ION (PPO) [place]-F PRESCRIPT BCBS May 17, [id number] [phone] FR ZEINAOSCAR PATIENT EP BCBS ION FEP 2010 0 [id number] 331 AN PLAN MEDICARE MEDICARE PART Jan 15, PART A [id number] SIDNEY OSCAR PATIENT (WNR) (M) A 2008 HU83 2 AN Selected Encounter This section includes the information on record at [place] for the Encounter. Date/Time Encounter Type Encounter Reason Provider Source Description Jan 09, 2020 01:44 Outpatient PRIMARY NICODEMUS,AURA-L PM Encounter CARE/MEDICINE EE IHE Encounter Template Text not used by [place] Plan of Treatment: Future Appointments (+ 6 months) and Future Tests (+/- 45 days) The Plan of Treatment section includes future care activities for the patient from all [place] treatment facilities. This section includes future appointments and future orders which are active, pending or scheduled.Future Appointments This section includes appointments that were scheduled to occur 6 months from the date of the Encounter, up to a maximum of 20 appointments. The data [facility] [place] [facility] Appointment Date/Time Appointment Type Appointment Facili ty Name May 02, 2020 01:30 PM AMBULATORY - NONE [facility] Jul 04, 2020 02:00 PM AMBULATORY - NONE [facility] Social History: Smoking Status (Most current) and Tobacco Use (All prior to encounter date) This section includes the most current, and the historical, smoking and tobacco-related health factors from the [place] facility where the Encounter took place.Current Smoking Status This section includes the most current smoking, or tobacco-related health factor, from the [place] facility where the Encounter took place. Date/Time Current Smoking Status Comment Facility Jan 14, 2018 03:08 PM VA-TOBACCO FORMER USER [place] [facility] Tobacco Use History This section includes a history of the smoking, or tobacco-related health factors, that were collected on or before the date of the Encounter. The data comes from the [place] facility where the Encounter took place. Date/Time Smoking Status/Tobacco Use Comment [facility] Jan 14, 2018 03:08 PM VA-TOBACCO QUIT 15 YRS OR MORE [facility] Mar 16, 2017 09:08 AM QUIT TOBACCO USE > 7 YEARS AGO [facility] quit 1983Mar 04, 2016 10:28 AM QUIT TOBACCO USE > 7 YEARS AGO [facility] Quit 1983Mar 10, 2005 10:47 AM HISTORY OF SMOKING [facility] [place] [facility] 1983Mar 31, 2004 09:26 AM HISTORY OF SMOKING [facility] [place] [facility] Mar 31, 2004 09:26 AM QUIT TOBACCO USE > 7 YEARS AGO [facility] Aug 22, 2001 01:30 PM HISTORY OF SMOKING [facility] [place] [facility] Advance Directives: All historical and current [...] 2014 ADVANCE DIRECTIVE EYAL MONTILLA [place] [facility] Encounter Notes: All associated encounter notes This section contains the clinical notes associated to the Encounter. Date/Time Encounter Note(s) Provider Source Jan 09, 2020 01:44 PM PRIMARY CARE SECURE MESSAGING: Jhoan GIL LOCAL TITLE: PRIMARY CARE SECURE MESSAGING [facility] STANDARD TITLE: PRIMARY CARE SECURE MESSAGING DATE OF NOTE: JAN 09, 2020@13:44:19 ENTRY DATE: JAN 09, 2020@14:44:20 AUTHOR: NURA GIL EXP COSIGNER: URGENCY: STATUS: COMPLETED ------Original Message Sent: 01/09/2020 02:28 PM From: KATHY LITTLE To: Tevin [email or web address] Subject: Script RX [id number] Please revive the Sertraline 100 mg prescription . I have 9 days remaining. Kathy Weaver 0930 /chris/ Nura Gil LPN Signed: 01/09/2020 14:44 Receipt Acknowledged By: 01/09/2020 16:28 /chris/ Manny zapata MSN, PSYCH SPECIALIST Nurse Practitioner Faculty
--- OUTSIDE RECORDS SUMMARY | 2020-12-05 21:34 | XMS_ITS | Encounter Summary ---
:1945 Author Organization Department [facility] rs Address [address] [place] [address] Care Team Providers Name Role Phone CHANDLER, [...] Number Dhillon ANTHEM PREFERRED BASIC May 17 [id number] [phone] OSCAR LITTLE P ATIENT [place]BS OF [place] PROVIDER SELF 2002 22 [id number] AN (FEDERAL) ORGANIZAT ION (PPO) BCBS OF [place] PREFERRED BASIC May 17 [id number] [phone] OSCAR MACEDO PATIENT FEDERAL PROVIDER SELF 2002 22 4 AN ORGANIZAT ION (PPO) [place]-F PRESCRIPT BCBS May 17 [id number] [phone] FR ZEINAOSCAR PATIENT EP BCBS ION FEP 2010 0 [id number] 331 AN PLAN MEDICARE MEDICARE PART Jan 15, PART A [id number] SIDNEY OSCAR PATIENT (WNR) (M) A 2008 HU83 2 AN Selected Encounter This section includes the information on record at [place] for the Encounter. Date/Time Encounter Type Encounter Reason Provider Source Description Jun 11, 2020 10:12 Outpatient PRIMARY NINI DOMÍNGUEZ AM Encounter CARE/MEDICINE IHE Encounter Template Text not used by [place] Plan of Treatment: Future Appointments (+ 6 months) and Future Tests (+/- 45 days) The Plan of Treatment section includes future care activities for the patient from all [place] treatment facilities. This section includes future appointments and future orders which are active, pending or scheduled.Future Appointments This section includes appointments that were scheduled to occur 6 months from the date of the Encounter, up to a maximum of 20 appointments. The data comes from all [facility]. Appointment Date/Time Appointment Type Appointment Facili ty Name Jul 04, 2020 02:00 PM AMBULATORY - NONE [place] [facility] Jul 17, 2020 11:15 AM AMBULATORY - PS[place]CHIATRY [place] [facility] Jul 19, 2020 01:00 PM [place]UL[place]ORY [place] [facility] Jul 19, 2020 02:00 PM AMBULATORY - [place]GERY [place] [facility] Jul 22, 2020 09:00 AM AMBULATORY - MEDICINE [place] [facility] Jul 29, 2020 11:00 AM AMBULATORY - NONE [place] [facility] Jul 31, 2020 11:00 AM AMBULATORY - PS[place]CHIATRY [place] [facility] Aug 13, 2020 10:00 AM AMBULATORY - MEDICINE [place] [facility] Aug 21, 2020 10:00 AM AMBULATORY - MEDICINE [place] [facility] Aug 21, 2020 11:00 AM AMBULATORY - PSYCHIATRY [place] [facility] October 02, 2020 10:15 AM AMBULATORY - PSYCHIATRY [place] [facility] October 09, 2020 01:00 PM AMBULATORY - MEDICINE [place] [facility] Oct 28, 2020 11:00 AM AMBULATORY - NONE [place] [facility] Nov 04, 2020 01:00 PM AMBULATORY - PS[place]CHIATRY [place] [facility] Nov 12, 2020 08:30 AM AMBULATORY - NONE [place] [facility] Nov 19, 2020 02:00 PM AMBULATORY - [place] [facility] Dec 05, 2020 08:00 AM AMBULATORY - NONE [place] [facility] Active, Pending, and Scheduled Orders This section includes a listing of several types of active, pending, and scheduled orders, including clinic medications orders, diagnostic test orders, procedure orders and consult orders; where the start date of the order is 45 days before the date of the Encounter or 45 days after the date of the Encounter. The data comes from all [place] treatment facilities. Test Date/Time Test Type Test Details Facility Name May 02, 2020 01:53 PM Laboratory - Chemistry PSA (PROFESSOR OF CHEMISTRY) [place] Order BLOOD(GOLD) SERUM SP [facility] Social History: Smoking Status (Most [...] 11:00 AM VA-TOBACCO FORMER USER [place] [facility] Tobacco Use History This section includes a history of the smoking, or tobacco-related health factors, that were collected on or before the date of the Encounter. The data comes from the [place] facility where the Encounter took place. Date/Time Smoking Status/Tobacco Use Comment [facility] Apr 09, 2020 11:00 AM VA-TOBACCO QUIT 15 YRS OR MORE [place] [facility] Jan 14, 2018 03:08 PM VA-TOBACCO FORMER USER [place] [facility] Jan 14, 2018 03:08 PM VA-TOBACCO QUIT 15 YRS OR MORE [place] [facility] Mar 16, 2017 09:08 AM QUIT TOBACCO USE > 7 YEARS AGO [place] [facility] quit 1983Mar 04, 2016 10:28 AM QUIT TOBACCO USE > 7 YEARS AGO [place] [facility] Quit 1983Mar 10, 2005 10:47 AM H[place]ORY OF SMOKING [place] [facility] 1983Mar 31, 2004 09:26 AM HISTORY OF SMOKING [place] [facility] Mar 31, 2004 09:26 AM QUIT TOBACCO USE > 7 YEARS AGO [place] [facility] Aug 22, 2001 01:30 PM HISTORY OF SMOKING [place] [facility] Advance Directives: All historical and current Section Date Range: From patient's date of to the date document was created. This section includes ALL of a patient's completed or amended [place] Advance and Rescinded Directives. The entries below indicate that a directive exists for the patient, but an actual copy is not included with this document. The data comes from all [place] facilities. Date Advance Directives Provider Source Feb 23, 2014 ADVANCE DIRECTIVE EYAL MONTILLA ADITYA ARREOLA [place] [facility] Encounter Notes: All associated encounter notes This section contains the clinical notes associated to the Encounter. Date/Time Encounter Note(s) Provider Source Jun 11, 2020 10:12 AM PRIMARY CARE SECURE MESSAGING: NINI DOMÍNGUEZT [facility] LOCAL TITLE: PRIMARY CARE SECURE MESSAGING STANDARD TITLE: PRIMARY CARE SECURE MESSAGING DATE OF NOTE: JUN 11, 2020@10:12 ENTRY DATE: JUN 11, 2020@10:12:21 AUTHOR: NINI DOMÍNGUEZ EXP COSIGNER: URGENCY: STATUS: COMPLETED PRIMARY CARE SECURE MESSAGING Has ADDENDA ------Original Message Sent: 06/10/2020 02:52 PM From: KATHY LITTLE To: Tevin ARTEAGA_[facility]_[email or web address] Subject: Allergic to Doxycycline (hives) Have an [...] for allergies of any kind. Nini Domínguez, RN F Team 2 /es/ NINI DOMÍNGUEZ BSN RN Signed: 06/11/2020 10:12 06/28/2020 ADDENDUM STATUS: COMPLETED Spoke with [facility] he has not had any va ccines in the last 14 days, he has not tested positive for Covid in the last 90 days an d he has not had anyphylaxis with any vaccination. [facility] advised that we ma ke same day vaccine appointment when he comes in for PCP bronson ointment. He is hoping for appointment prior to his 2pm with PCP. He is worried about d riving at night. /chris/ MAURISIO CELIS Registered Nurse Signed: 06/28/2020 15:18 Receipt Acknowledged By: * AWAITING SIGNATURE * TOSHIA [place] * AWAITING SIGNATURE * MANNY ARTEAGA
--- OUTSIDE RECORDS SUMMARY | 2020-12-05 21:34 | XMS_ITS | Encounter Summary ---
:1945 Author Organization [facility] rs Address [address] [place] [address] Care Team Providers Name Role Phone CHANDLER, [...] Number Dhillon ANTHEM PREFERRED BASIC May 17 [id number] [phone] OSCAR LITTLE P ATIENT BCBS OF [place] PROVIDER SELF 2002 22 [id number] AN (FEDERAL) ORGANIZAT ION (PPO) [place] PREFERRED BASIC May 17 [id number] [phone] OSCAR MACEDO PATIENT FEDERAL PROVIDER SELF 2002 22 4 AN ORGANIZAT ION (PPO) CAREMARK-F PRESCRIPT BCBS May 17, [id number] [phone] FR OSCAR PASTRANA PATIENT EP BCBS ION FEP 2010 0 [id number] AN PLAN MEDICARE MEDICARE PART Jan 15, PART A [id number] OSCAR LITTLE PATIENT (WNR) (M) A 2008 [id number] 2 AN Selected Encounter This section includes the information on record at [facility] for the Encounter. Date/Time Encounter Type Encounter Description Reason Provider Source Apr 30, 2020 10:47 Outpatient Encounter GERIPACT AM IHE Encounter Template Text not used by VA Plan of Treatment: Future Appointments (+ 6 months) and Future Tests (+/- 45 days) The Plan of Treatment section includes future care activities for the patient from all [place] treatment facilities. This section includes future appointments and future orders which are active, pending or scheduled.Future Appointments This section includes appointments that were scheduled to occur 6 months from the date of the Encounter, up to a maximum of 20 appointments. The data comes from all [facility]. Appointment Date/Time Appointment Type Appointment Facili ty Name May 02, 2020 01:30 PM AMBULATORY - NONE [facility] Jul 04, 2020 02:00 PM AMBULATORY - NONE [place] [facility] Jul 17, 2020 11:15 AM [place] [facility] Jul 19, 2020 01:00 PM [place] [facility] Jul 19, 2020 02:00 PM [place] [facility] Jul 22, 2020 09:00 AM AMBULATORY [place]ICINE [place] [facility] Jul 29, 2020 11:00 AM AMBULATORY - NONE [place] [facility] Jul 31, 2020 11:00 AM [place] [facility] Aug 13, 2020 10:00 AM [place]ICINE [place] [facility] Aug 21, 2020 10:00 AM AM[place]ORY [place] MEDICINE [place] [facility] Aug 21, 2020 11:00 AM AMBUL[facility] - [place]RY [place] [facility] [facility] October 02, 2020 10:15 AM AMBULAT[place] - [place]RY [place] [facility] October 09, 2020 01:00 PM [place]ORY [place]ICINE [place] [facility] Oct 28, 2020 11:00 AM AMBUL[place]ORY - NONE [place] [facility] [...] the Encounter. The data comes from all [place] treatment facilities. Test Date/Time Test Type Test Details Facility Name May 02, 2020 01:53 PM Laboratory - Chemistry PSA (FABRIC COATING SUPERVISOR) [place] Order BLOOD(GOLD) SERUM SP [facility] Lab Results: +/- 30 days of the encounter This section includes the Chemistry and Hematology Lab Results on record with [place] for the patient. Radiology Reports and Pathology Reports are provided separately, in subsequent sections.Lab Results This section contains the Chemistry/Hematology Results that were resulted 30 days before or 30 days after the date of the Encounter. Date/Time Source Result Type Result - Unit Interpretation Reference Range Comment May 02, 2020 [facility] LIPOPROTEIN Specimen Type: PLASMA 01:53 PM [facility] CHOLE[facility] FRACT. Comment: Tests performed on Kohli Lay Out And Detail Drafter (405) PANEL Ordering Provider: MANNY ARTEAGA Report Released Date/Time: Sep 12, 2019 11:58 AM Reporting Lab[facility] [address] [facility] [address] Performing Lab: [facility] [address] [facility] [facility] [address] CHOLESTEROL 194 mg/dL 0-199 TRIGLYCERIDE 166 mg/dL H 0-149 HDL CHOLESTEROL 39 mg/dL L >40 LDL CHOLESTEROL (CALC) 122 mg/dl 0-129 May 02, 2020 [facility] GLYCOHEMOGLOBIN (A1C Specimen Type: BLOOD 01:53 PM [facility]) Comment: Tests performed on Kholi Lay Out And Detail Drafter (405) Ordering Provider: MANNY ARTEAGA Report Released Date/Time: Sep 12, 2019 11:58 AM Reporting Lab: [facility] [address] [facility] [address] Performing Lab: [facility] [address] [facility] [address] HEMOGLOBIN A1C 5.6 % 4.0-5.6 May 02, 2020 [facility] GLU,BUN,CREAT,LYTES,CA Specimen Type: PLASMA 01:53 PM [facility] Comment: Tests performed on Kohli Lay Out And Detail Drafter (405) Ordering Provider: MANNY ARTEAGA Report Released Date/Time: Sep 12, 2019 11:58 AM Reporting Lab: [facility] [address] [facility] [address] Performing Lab: [place] [facility] [address] [facility] [address] UREA NITROGEN 19 mg/dL 7-25 SODIUM 139 mmol/L 135-145 POTASSIUM 4.3 mmol/L 3.5-5.0 CHLORIDE 104 mmol/L 100-110 CARBON DIOXIDE 28 mmol/L 20-30 ANION GAP 7 mmol/L 4-16 GLUCOSE 93 mg/dL 65-100 CREATININE 1.22 mg/dl 0.5-1.5 CALCIUM 8.9 mg/dL 8.5-10.5 eGFR 58 mL/min L >60 May 02, 2020 01:53 [facility] CBC PROFILE Specimen Type: BLOOD [facility] No comment enter ed. Ordering Provider: MANNY ARTEAGA Report Released Date/Time: Sep 12, 2019 11:58 AM Reporting Lab: [facility] [address] [facility] [facility] [address] Performing Lab: [facility] [address] [facility] [address] [facility] [address] WBC 5.9 10*3/uL 4.5-11.0 RBC 5.04 10*6/uL [...] PM [facility] Comment: Tests performed on Kohli Lay Out And Detail Drafter (405) Ordering Provider: MANNY ARTEAGA Report Released Date/Time: Sep 12, 2019 11:58 AM Reporting Lab: [place] [facility] [address] [facility] [place] [facility] [place] [address] Performing Lab: [place] [facility] [address] [facility] [address] PROTEIN, TOTAL 7.1 g/dL 6.0-8.5 ALBUMIN 3.9 g/dL 3.2-5.0 BILIRUBIN, TOTAL 0.7 mg/dL 0.2-1.2 ALKALINE PHOSPHATASE 82 U/L 40-150 ALT(SGPT) 27 U/L 7-52 AST(SGOT) 30 U/L 5-34 FIB-4 SCORE 1.82 INDEX <2.67 May 02, 2020 01:52 PM [place] [facility] TSH Specimen Type: SERUM Comment: Added by [email or web address] on May 02, 2020@20:09 Tests performed on Kohli Lay Out And Detail Drafter (405) Ordering Provider: TOSHIA OH Report Released Date/Time: Apr 10, 2020 12:14 PM Reporting Lab: [place] [facility] [address] [facility] [place] [facility] [place] [address] Performing Lab: [place] [facility] [address] [facility] [address] TSH 2.02 uIU/mL 0.35-5.00 May 02, 2020 01:52 PM [place] [facility] VITAMIN B-12 Specimen Type: SERUM Comment: Added by [email or web address] on May 02, 2020@20:09 Tests performed on Kohli Lay Out And Detail Drafter (405) Ordering Provider: TOSHIA OH Report Released Date/Time: Apr 10, 2020 12:14 PM Reporting Lab: [place] [facility] [address] [facility] [place] [address] Performing Lab: [place] [facility] [address] [facility] [address] VITAMIN B-12 810 pg/mL 200-900 May 02, 2020 01:52 [place] PSA (FABRIC COATING SUPERVISOR) Specimen Type: SERUM PM [facility] Comment: Added by [email or web address] on May 02, 2020@20:09 Tests performed on Kohli Lay Out And Detail Drafter (405) Ordering Provider: TOSHIA OH Report Released Date/Time: Apr 10, 2020 12:14 PM Reporting Lab: [facility] [address] [facility] [place] [address] Performing Lab: [facility] [address] [facility] [address] PSA (FABRIC COATING SUPERVISOR) <0.10 ng/mL 0-4.0 Social History: Smoking Status (Most current) and Tobacco Use (All prior to encounter date) This section includes the most current, and the historical, smoking and tobacco-related health factors from the [place] facility where the Encounter took place.Current Smoking Status This section includes the most current smoking, or tobacco-related health factor, from the [place] facility where the Encounter took place. Date/Time Current Smoking Status Comment Facility Apr 09, 2020 11:00 AM VA-TOBACCO FORMER USER [facility] Tobacco Use History This section includes a history of the smoking, or tobacco-related health factors, that were collected on or before the date of the Encounter. The data comes from the [place] facility where the Encounter took place. Date/Time Smoking Status/Tobacco Use Comment [facility] Apr 09, 2020 11:00 AM VA-TOBACCO QUIT 15 YRS OR MORE [place] [facility] Jan 14, 2018 03:08 PM VA-TOBACCO FORMER USER [place] [facility] Jan 14, 2018 03:08 PM VA-TOBACCO QUIT 15 YRS OR MORE [place] [facility] Mar 16, 2017 09:08 AM QUIT TOBACCO USE > 7 YEARS AGO [place] [facility] quit 1983Mar 04, 2016 10:28 AM QUIT TOBACCO USE > 7 YEARS AGO [place] [facility] Quit 1983Mar 10, 2005 10:47 AM [...] this document. The data comes from all [place] facilities. Date Advance Directives Provider Source Feb 23, 2014 ADVANCE DIRECTIVE EYAL [facility] Encounter Notes: All associated encounter notes This section contains the clinical notes associated to the Encounter. Date/Time Encounter Note(s) Provider Source Apr 30, 2020 10:47 AM PRIMARY CARE ADMINISTRATIVE NOTE: ME JANNY OHT LOCAL TITLE: Administrative Note/Primary Care [facility] STANDARD TITLE: PRIMARY CARE ADMINISTRATIVE NOTE DATE OF NOTE: APR 30, 2020@10:47 ENTRY DATE: APR 30, 2020@10:47:04 AUTHOR: TOSHIA OH COSIGNER: MANNY ARTEAGA URGENCY: STATUS: COMPLETED TC to patient, recommended to call the [facility] clinic and provided with number to schedule lab draw there. He wanted to make sure FORMULATION CHEMIST was not upset with him and reassured [...] Signed: 04/30/2020 10:56 /chris/ Manny Arteaga MSN, FRESH WORK INSPECTOR Nurse Practitioner Faculty Cosigned: 04/30/2020 12:23
--- OUTSIDE RECORDS SUMMARY | 2020-12-05 21:34 | XMS_ITS | Encounter Summary ---
:1945 Author Organization [facility] rs Address [address] [place] [address] Care Team Providers Name Role Phone CHANDLER, [...] Number Dhillon ANTHEM PREFERRED BASIC May 17 [id number] [phone] OSCAR ILTTLE P ATIENT [place] PROVIDER SELF 2002 22 [id number] AN (FEDERAL) ORGANIZAT ION (PPO) [place] PREFERRED BASIC May 17 [id number] [phone] OSCAR MACEDO PATIENT FEDERAL PROVIDER SELF 2002 22 4 AN ORGANIZAT ION (PPO) CAREMARK-F PRESCRIPT BCBS May 17, [id number] [phone] FR OSCAR PASTRANA PATIENT EP BCBS ION FEP 2010 0 [id number] AN PLAN MEDICARE MEDICARE PART Jan 15, PART A [id number] OSCAR LITTLE PATIENT (WNR) (M) A 2008 [id number] 2 AN Selected Encounter This section includes the information on record at [facility] for the Encounter. Date/Time Encounter Type Encounter Description Reason Provider Source May 03, 2020 10:55 Outpatient Encounter GERIPACT AM IHE Encounter Template Text not used by VA Plan of Treatment: Future Appointments (+ 6 months) and Future Tests (+/- 45 days) The Plan of Treatment section includes future care activities for the patient from all [place] treatment facilities. This section includes future appointments and future orders which are active, pending or scheduled.Future Appointments This section includes appointments that were scheduled to occur 6 months from the date of the Encounter, up to a maximum of 20 appointments. The data comes from all [facility]. Appointment Date/Time Appointment Type Appointment Facili ty Name Jul 04, 2020 02:00 PM AMBULATORY - NONE [place] [facility] Jul 17, 2020 11:15 AM AM[place] [facility] Jul 19, 2020 01:00 PM [place] [facility] Jul 19, 2020 02:00 PM AMBUL[place]ORY [place] [facility] Jul 22, 2020 09:00 AM AMBULATORY - MEDICINE [place] [facility] Jul 29, 2020 11:00 AM AMBULATORY - NONE [place] [facility] Jul 31, 2020 11:00 AM AMBULATORY - [place]IATRY [place] [facility] Aug 13, 2020 10:00 AM AMBULATORY - MEDICINE [place] [facility] Aug 21, 2020 10:00 AM AMBULATORY - MEDICINE [place] [facility] Aug 21, 2020 11:00 AM AMBULATORY - [place]IATRY [place] [facility] October 02, 2020 10:15 AM AMBULATORY - [place]IATRY [place] [facility] October 09, 2020 01:00 PM AMBULATORY - MEDICINE [place] [facility] Oct 28, 2020 11:00 AM AMBULATORY - NONE [place] [facility] Active, Pending, and Scheduled Orders This section includes a listing of several types of active, pending, and scheduled orders, including clinic medications orders, diagnostic test orders, procedure orders and consult orders; where the start date of the order is 45 days before the date of the Encounter or 45 days after the date of the Encounter. The data comes from all [place] treatment facilities. Test Date/Time Test Type Test Details Facility Name May 02, 2020 01:53 PM Laboratory - Chemistry PSA (MUNICIPAL MAINTENANCE WORKER) [place] Order BLOOD(GOLD) SERUM SP [facility] Lab Results: +/- 30 days of the encounter This section includes the Chemistry and Hematology Lab Results on record with [place] for the patient. Radiology Reports and Pathology Reports are provided separately, in subsequent sections.Lab Results This section contains the Chemistry/Hematology Results that were resulted 30 days before or 30 days after the date of the Encounter. Date/Time Source Result Type Result - Unit Interpretation Reference Range Comment May 02, 2020 [facility] Specimen Type: PLASMA 01:53 PM [facility] CHOLESTER[facility] F[facility]. Comment: Tests performed on Kohli Embedded Hardware Engineer (405) PANEL Ordering Provider: MANNY ARTEAGA Report Released Date/Time: Sep 12, 2019 11:58 AM Reporting Lab: [place] [facility] [address] [facility] [address] Performing Lab: [facility] [address] [facility] [address] CHOLESTEROL 194 mg/dL 0-199 TRIGLYCERIDE 166 mg/dL H 0-149 HDL CHOLESTEROL 39 mg/dL L >40 LDL CHOLESTEROL (CALC) 122 mg/dl 0-129 May 02, 2020 [facility] GLYCOHEMOGLOBIN (A1C Specimen Type: BLOOD 01:53 PM [facility]) Comment: Tests performed on Kohli Embedded Hardware Engineer (405) Ordering Provider: MANNY ARTEAGA Report Released Date/Time: Sep 12, 2019 11:58 AM Reporting Lab: [facility] [address] [facility] [address] Performing Lab: [place] [facility] [address] [facility] [address] HEMOGLOBIN A1C 5.6 % 4.0-5.6 May 02, 2020 [facility] P[facility] GLU,BUN,CREAT,LYTES,CA Specimen Type: PLASMA 01:53 PM [facility] Comment: Tests performed on Kohli Embedded Hardware Engineer (405) Ordering Provider: MANNY ARTEAGA Report Released Date/Time: Sep 12, 2019 11:58 AM Reporting Lab: [place] [facility] [address] [facility] [address] Performing Lab: [place] [facility] [address] [facility] [address] UREA NITROGEN 19 mg/dL 7-25 SODIUM 139 mmol/L 135-145 POTASSIUM 4.3 mmol/L 3.5-5.0 CHLORIDE 104 mmol/L 100-110 CARBON DIOXIDE 28 mmol/L 20-30 ANION GAP 7 mmol/L 4-16 GLUCOSE 93 mg/dL 65-100 CREATININE 1.22 mg/dl 0.5-1.5 CALCIUM 8.9 mg/dL 8.5-10.5 eGFR 58 mL/min L >60 May 02, 2020 01:53 [facility] CBC PROFILE Specimen Type: BLOOD PM [facility] No comment enter ed. Ordering Provider: MANNY ARTEAGA Report Released Date/Time: Sep 12, 2019 11:58 AM Reporting Lab: [facility] [address] [facility] [address] Performing Lab: [facility] [address] [facility] [address] WBC 5.9 10*3/uL 4.5-11.0 RBC 5.04 10*6/uL [...] 0.00 10*3/uL 0-0 May 02, 2020 01:53 [facility] LIVER PROFILE Specimen Type: PLASMA PM [facility] Comment: Tests performed on Kohli Embedded Hardware Engineer (405) Ordering Provider: MANNY ARTEAGA Report Released Date/Time: Sep 12, 2019 11:58 AM Reporting Lab: [place] [facility] [address] [facility] [place] [address] Performing Lab: [place] [facility] [address] [facility] [place] [facility] [place] [address] PROTEIN, TOTAL 7.1 g/dL 6.0-8.5 ALBUMIN 3.9 g/dL 3.2-5.0 BILIRUBIN, TOTAL 0.7 mg/dL 0.2-1.2 ALKALINE PHOSPHATASE 82 U/L 40-150 ALT(SGPT) 27 U/L 7-52 AST(SGOT) 30 U/L 5-34 FIB-4 SCORE 1.82 INDEX <2.67 May 02, 2020 01:52 PM [place] [facility] TSH Specimen Type: SERUM Comment: Added by [id number] on May 02, 2020@20:09 Tests performed on Kohli Embedded Hardware Engineer (405) Ordering Provider: TOSHIA OH Report Released Date/Time: Apr 10, 2020 12:14 PM Reporting Lab: [place] [facility] [address] [facility] [place] [address] Performing Lab: [place] [facility] [address] [facility] [place] [address] TSH 2.02 uIU/mL 0.35-5.00 May 02, 2020 01:52 PM [place] [facility] VITAMIN B-12 Specimen Type: SERUM Comment: Added by [email or web address] on May 02, 2020@20:09 Tests performed on Kohli Embedded Hardware Engineer (405) Ordering Provider: TOSHIA OH Report Released Date/Time: Apr 10, 2020 12:14 PM Reporting Lab: [place] [facility] [address] [place] [address] Performing Lab: [place] [facility] [address] [facility] [place] [address] VITAMIN B-12 810 pg/mL 200-900 May 02, 2020 01:52 [place] PSA (MUNICIPAL MAINTENANCE WORKER) Specimen Type: SERUM PM [facility] Comment: Added by [email or web address] on May 02, 2020@20:09 Tests performed on Kohli Embedded Hardware Engineer (405) Ordering Provider: TOSHIA OH Report Released Date/Time: Apr 10, 2020 12:14 PM Reporting Lab: [place] [facility] [address] [facility] [place] [address] Performing Lab: AD[facility] JEFF [facility] [address] [facility] [address] PSA (MUNICIPAL MAINTENANCE WORKER) <0.10 ng/mL 0-4.0 Social History: Smoking Status (Most current) and Tobacco Use (All prior to encounter date) This section includes the most current, and the historical, smoking and tobacco-related health factors from the [place] facility where the Encounter took place.Current Smoking Status This section includes the most current smoking, or tobacco-related health factor, from the [place] facility where the Encounter took place. Date/Time Current Smoking Status Comment Facility Apr 09, 2020 11:00 AM VA-TOBACCO FORMER USER [facility] Tobacco Use History This section includes a history of the smoking, or tobacco-related health factors, that were collected on or before the date of the Encounter. The data comes from the [place] facility where the Encounter took place. Date/Time Smoking Status/Tobacco Use Comment [facility] Apr 09, 2020 11:00 AM VA-TOBACCO QUIT 15 YRS OR MORE [place] [facility] Jan 14, 2018 03:08 PM VA-TOBACCO FORMER USER [place] [facility] [facility] Jan 14, 2018 03:08 PM VA-TOBACCO QUIT 15 YRS OR MORE [place] [facility] Mar 16, 2017 09:08 AM QUIT TOBACCO USE > 7 YEARS AGO [place] [facility] quit 1983Mar 04, 2016 10:28 AM QUIT TOBACCO USE > 7 YEARS AGO [place] [facility] Quit 1983Mar 10, 2005 10:47 AM H[place] OF SMOKING [place] [facility] 1983Mar 31, 2004 09:26 AM H[place]ORY OF SMOKING [place] [facility] Mar 31, 2004 09:26 AM QUIT TOBACCO USE > 7 YEARS AGO [place] [facility] Aug 22, 2001 01:30 PM HISTORY OF SMOKING [place] [facility] Advance Directives: All historical and current Section Date Range: From patient's date of to the date document was created. This section includes ALL of a patient's completed or amended VA Advance and Rescinded Directives. The entries below indicate that a directive exists for the patient, but an actual copy is not included with this document. The data comes from all [place] facilities. Date Advance Directives Provider Source Feb 23, 2014 ADVANCE DIRECTIVE ELADIA,EYAL [place] [facility] Encounter Notes: All associated encounter notes This section contains the clinical notes associated to the Encounter. Date/Time Encounter Note(s) Provider Source May 03, 2020 10:55 AM LETTERS: TOSHIA [place] LOCAL TITLE: Letter To Patient [facility] STANDARD TITLE: LETTERS DATE OF NOTE: MAY 03, 2020@10:55 ENTRY DATE: MAY 03, 2020@10:55:40 AUTHOR: TOSHIA OH EXP COSIGNER: MANNY ARTEAGA URGENCY: STATUS: COMPLETED [employer] [address] [place] [address] MAY 03, 2020 MR. KATHY LITTLE [address], [place] [address] [address] Mr. Kathy Daniellerowenatyler: Thank you for choosing the [facility] for your health care. Below you will find your lab results. CHOLESTEROL >> NORMAL/SLIGH TLY ELEVATED. I'd like to change your simvastatin to a stronger, more effective medication in the [facility] medication family called atorvastatin. If you [...] (05/02/20 13:53) PSA >> NORMAL, UNDETECTABLE PSA (MUNICIPAL MAINTENANCE WORKER) 05/02/20 13:52 <0. 10 KIDNEY TESTS >> [...] to call toll free at , ext. [phone] or locally at ,ext. [phone]. Please ask for the [place] covering Team 6 in [facility]. Please leave a detailed message r elated to your question or concern. We are ready to assist you in your heal th and wellness goals. Sincerely, TOSHIA OH Nurse Practitioner Resident
--- OUTSIDE RECORDS SUMMARY | 2020-12-05 21:35 | XMS_ITS | Encounter Summary ---
:1945 Author Organization Department [facility] rs Address [address] [place] [address] Care Team Providers Name Role Phone CHANDLER, [...] Number Dhillon ANTHEM PREFERRED BASIC May 17 [id number] [phone] OSCAR LITTLE P ATIENT [place]BS [place] PROVIDER SELF 2002 [id number] AN (FEDERAL) ORGANIZAT ION (PPO) [place] PREFERRED BASIC May 17 [id number] [phone] OSCAR MACEDO PATIENT FEDERAL PROVIDER SELF 2002 22 4 AN ORGANIZAT ION (PPO) CAREMARK-F PRESCRIPT BCBS May 17, [id number] [phone] ZEINAOSCAR PATIENT EP BCBS ION FEP 2010 0 [id number] AN PLAN MEDICARE MEDICARE PART Jan 15, PART A [id number] SIDNEY OSCAR PATIENT (WNR) (M) A 2008 [id number] 2 AN Selected Encounter This section includes the information on record at [place] for the Encounter. Date/Time Encounter Type Encounter Description Reason Provider Source Jun 27, 2020 03:18 Outpatient Encounter TELEPHONE/GERIATRICS PM IHE Encounter Template Text not used by [...] 20 appointments. The data comes from all [facility]. Appointment Date/Time Appointment Type Appointment Facili ty Name Jul 04, 2020 02:00 PM [place] [facility] Jul 17, 2020 11:15 AM [place] [facility] Jul 19, 2020 01:00 PM [place] [facility] Jul 19, 2020 02:00 PM AM[place]UL[place]ORY [place] [facility]3] Jul 22, 2020 09:00 AM AM[place]ORY [place] [facility] Jul 29, 2020 11:00 AM AMBULATORY - NONE [place] [facility] Jul 31, 2020 11:00 AM [place] [facility] Aug 13, 2020 10:00 AM [place]ORY [place] [facility] Aug 21, 2020 10:00 AM [place] [facility] Aug 21, 2020 11:00 AM [place] [facility] October 02, 2020 10:15 AM [place] [facility] October 09, 2020 01:00 PM [place] [facility] Oct 28, 2020 11:00 AM AMBULATORY [place] NONE [place] [facility] Nov 04, 2020 01:00 PM [place] [facility] Nov 12, 2020 08:30 AM AMBULATORY [place] NONE [place] [facility] Nov 19, 2020 02:00 PM [place] [facility] Dec 05, 2020 08:00 AM AMBULATORY - NONE [place] [facility] Dec 11, 2020 12:00 PM [place] [facility] Dec 23, 2020 11:00 AM [place] [facility] Active, Pending, and Scheduled Orders This [...] Date/Time Test Type Test Details Facility Name Jul 29, 2020 12:57 PM Consult Order COMMUNITY CARE-COLONOSCOPY [facility] SCREENING Cons Applications Architect's Choice Social History: Smoking Status (Most current) and [...] AM VA-TOBACCO FORMER USER [place] [facility] Tobacco Use History This section includes a history of the smoking, or tobacco-related health factors, that were collected on or before the date of the Encounter. The data comes from the [place] facility where the Encounter took place. Date/Time Smoking Status/Tobacco Use Comment [facility] Apr 09, 2020 11:00 AM VA-TOBACCO QUIT 15 YRS OR MORE [facility] Jan 14, 2018 03:08 PM VA-TOBACCO FORMER USER [place] [facility] Jan 14, 2018 03:08 PM VA-TOBACCO QUIT 15 YRS OR MORE [facility] Mar 16, 2017 09:08 AM QUIT TOBACCO USE > 7 YEARS AGO [facility] quit 1983Mar 04, 2016 10:28 AM QUIT TOBACCO USE > 7 YEARS AGO [facility] Quit 1983Mar 10, 2005 10:47 AM H[place]ORY OF [place]MOKING [place] [facility] 1983Mar 31, 2004 09:26 AM HISTORY OF SMOKING [place] [facility] Mar 31, 2004 09:26 AM QUIT TOBACCO USE > 7 YEARS AGO [facility] Aug 22, 2001 01:30 PM HISTORY OF SMOKING [place] [facility] Advance Directives: All historical and current [...] Feb 23, 2014 ADVANCE [address] EYAL [address]A [facility] Encounter Notes: All associated encounter notes This section contains the clinical notes associated to the Encounter. Date/Time Encounter Note(s) Provider Source Jun 27, 2020 03:18 PM NONVA NOTE: TOSHIA [place] LOCAL TITLE: NonVA Medical Records [facility] STANDARD TITLE: NONVA NOTE DATE OF NOTE: JUN 27, 2020@15:18 ENTRY DATE: JUN 27, 2020@15:19:02 AUTHOR: TOSHIA [place] EXP COSIGNER: URGENCY: STATUS: COMPLETED Records received: From [facility], 06/27/20 for visit ED visit for sudden vision loss left eye ~15 min Was sitting watching TV when he noticed sudden loss of vision L eye. Symptoms lasted 15 min and then completely resol demetrio. When symptoms were improving it seemed like a shade was being pulle d back open, improving his vision. +Mild headache over past few days but ot herwise (-): fever, eye pain, n/v, chest pain, SOB, dizziness, unilateral weak ness or numbness Imaging/Impression, r/o acute CVA: -Brain MRI: Unremarkable MRI of brain -Brain MRA: WNL anatomic variation (of [place] of [place]) -MRA neck: No evidence of dissection, occlusion or significant stenosis -Chest XR: no acute pulm findings -Head CT: No acute intracranial process -Bedside US done: no evidence of retinal detachm ent EKG: HR 78, sinus, RBBB, no acute ST ischemic fi ndings (qTC 487) Labs reviewed and unremarkable. Troponin negativ e. CRP 0.45H. ESR 27 (nl) Labs: WBC, lytes, Abnormals: BUN 22H, creat 1.4 H, eGFR 49.27L, an ion gap 12.0H, Diagnosis: Treatment recommendations (as discussed with QUINN C neurology) -STARTED ON clopidogrel 75 mg daily x21 days lisinopril 5mg daily -outpatient monitor and storage bin tender started -At [place], rec'd appts with reevalluation with neur ology, opthamology and an outpatient ROBIN Provider's name/number: /chris/ TOSHIA [place] Nurse Practitioner Resident Signed: 06/27/2020 15:33 Receipt Acknowledged By: * AWAITING SIGNATURE * MANNY ARTEAGA
--- OUTSIDE RECORDS SUMMARY | 2020-12-05 21:35 | XMS_ITS | Encounter Summary ---
:1945 Author Organization Department [facility] rs Address [address] [place] [address] Care Team Providers Name Role Phone CHANDLER, [...] Number Dhillon ANTHEM PREFERRED BASIC May 17 [id number] [phone] OSCAR LITTLE P ATIENT [place] PROVIDER SELF 2002 22 [id number] AN (FEDERAL) ORGANIZAT ION (PPO) [place] PREFERRED BASIC May 17 [id number] [phone] OSCAR MACEDO PATIENT FEDERAL PROVIDER SELF 2002 22 4 AN ORGANIZAT ION (PPO) [place]-F PRESCRIPT BCBS May 17, [id number] [phone] FR ZEINAOSCAR PATIENT EP BCBS ION FEP 2010 0 [id number] 331 AN PLAN MEDICARE MEDICARE PART Jan 15, PART A [id number] SIDNEY OSCAR PATIENT (WNR) (M) A 2008 [id number] 2 AN Selected Encounter This section includes the information on record at [place] for the Encounter. Date/Time Encounter Type Encounter Reason Provider Source Description Jun 27, 2020 03:37 Outpatient PRIMARY PRABHAKAR DOMÍNGUEZ PM Encounter CARE/MEDICINE IHE Encounter Template Text [...] appointments. The data comes from all [facility]. Appointment Date/Time Appointment Type Appointment Facili ty Name Jul 04, 2020 02:00 PM [place]ORY [place] [facility] Jul 17, 2020 11:15 AM [place] [facility] Jul 19, 2020 01:00 PM [place] [facility] Jul 19, 2020 02:00 PM [place] [facility] Jul 22, 2020 09:00 AM [place]ORY [place]IC[place] [facility] Jul 29, 2020 11:00 AM AMBULATORY - NONE [place] [facility] Jul 31, 2020 11:00 AM [place] [facility] Aug 13, 2020 10:00 AM [place]ORY [place]IC[place] [facility] Aug 21, 2020 10:00 AM [place]ORY [place]IC[place] [facility] Aug 21, 2020 11:00 AM [place] [facility] October 02, 2020 10:15 AM [place] [facility] October 09, 2020 01:00 PM [place] [facility] Oct 28, 2020 11:00 AM AMBULATORY - NONE [place] [facility] Nov 04, 2020 01:00 PM [place] [facility] Nov 12, 2020 08:30 AM AMBULATORY [place] NONE [place] [facility] Nov 19, 2020 02:00 PM [place] [facility] Dec 05, 2020 08:00 AM AMBULATORY [place] NONE [place] [facility] Dec 11, 2020 12:00 PM [place] [facility] Dec 23, 2020 11:00 AM [place] [facility] Active, Pending, and Scheduled Orders This section includes a listing of several types of active, pending, and scheduled orders, including clinic medications orders, diagnostic test orders, procedure orders and consult orders; where the start date of the order is 45 days before the date of the Encounter or 45 days after the date of the Encounter. The data comes from all [place] treatment facilities. Test Date/Time Test Type Test Details Facility Name Jul 29, 2020 12:57 PM Consult Order COMMUNITY CARE-COLONOSCOPY [facility] SCREENING Cons Tube Former Operator's Choice Social History: Smoking Status (Most current) [...] 11:00 AM VA-TOBACCO FORMER USER [place] [facility] Tobacco Use History This section includes a history of the smoking, or tobacco-related health factors, that were collected on or before the date of the Encounter. The data comes from the [place] facility where the Encounter took place. Date/Time Smoking Status/Tobacco Use Comment [facility] Apr 09, 2020 11:00 AM VA-TOBACCO QUIT 15 YRS OR MORE [facility] Jan 14, 2018 03:08 PM VA-TOBACCO FORMER USER [facility] [facility] Jan 14, 2018 03:08 PM VA-TOBACCO QUIT 15 YRS OR MORE [facility] Mar 16, 2017 09:08 AM QUIT TOBACCO USE > 7 YEARS AGO [facility] quit 1983Mar 04, 2016 10:28 AM QU[facility]ACCO [facility] 1983Mar 10, 2005 10:47 AM H[place]ORY OF SMOKING [place] [facility] 1983Mar 31, 2004 09:26 AM HISTORY OF SMOKING [place] [facility] Mar 31, 2004 09:26 AM QUIT TOBACCO USE > 7 YEARS AGO [facility] Aug 22, 2001 01:30 PM [...] 23, 2014 ADVANCE DIRECTIVE EYAL MONTILLA [facility] Encounter Notes: All associated encounter notes This section contains the clinical notes associated to the Encounter. Date/Time Encounter Note(s) Provider Source Jun 27, 2020 03:37 PM PRIMARY CARE SECURE MESSAGING: [facility]AR [facility]UE[facility] LOCAL TITLE: PRIMARY CARE SECURE MESSAGING STANDARD TITLE: PRIMARY CARE SECURE MESSAGING DATE OF NOTE: JUN 27, 2020@15:37 ENTRY DATE: JUN 27, 2020@15:38:01 AUTHOR: PRABHAKAR DOMÍNGUEZ EXP COSIGNER: URGENCY: STATUS: COMPLETED PRIMARY CARE SECURE MESSAGING Has ADDENDA ------Original Message Sent: 06/27/2020 03:34 PM From: KATHY LITTLE To: Tevin [email or web address]_[email or web address] Subject: Covid vaccine Local In light of my recent ocular incident, the [facility] ER doctor asked me to seek your advice on keeping my 07-05- Covid shot appointment in [facility]. I will see you on 07-04 at 2:00 PM, but If I need to cancel Covid, I should do so ahead of my appointment with you. Thank you, Kathy Little [id number] /es/ PRABHAKAR DOMÍNGUEZ BSN RN Signed: 06/27/2020 15:38 Receipt Acknowledged By: 06/27/2020 16:36 /es/ TOSHIA [place] Nurse Practitioner Resident 06/27/2020 17:33 /es/ Manny zapata MSN, WASTEWATER TREATMENT ENGINEER Nurse Practitioner Faculty 06/27/2020 ADDENDUM STATUS: COMPLETED RN, please advise pt that as long as covid scree n is negative, and answers following questions negative , I see no reason why he shouldn't get the vaccine. My hope is that he could get it on the same day as his appt- I will reach out to vaccine clinic to make an appt time for him on after his appt with me. Please ask him: Have you had any other vaccination in the past 1 4 days? Have you tested positive for Covid in the past 9 0 days? Have you ever had a severe reaction to a vaccine or shot that required the use of an epipen? /es/ TOSHIA [place] Nurse Practitioner Resident Signed: 06/27/2020 16:41 /es/ Manny Arteaga MSN, WASTEWATER TREATMENT ENGINEER Nurse Practitioner Faculty Cosigned: 06/27/2020 17:32 Receipt Acknowledged By: 06/28/2020 16:05 /es/ ZULEMA COLLADO Registered Nurse 06/28/2020 15:30 /es/ MAURISIO CELIS Registered Nurse 06/28/2020 ADDENDUM STATUS: COMPLETED Called patient back to give [facility] for [facility] self [facility]. He stated that because it will be two vaccines it w ill be easier to do in [facility] he is keeping his appointment for 07/05 in [facility]. /es/ MAURISIO CELIS Registered Nurse Signed: 06/28/2020 16:05
--- OUTSIDE RECORDS SUMMARY | 2020-12-05 21:36 | XMS_ITS | Encounter Summary ---
:1945 Author Organization Department of [facility] rs Address [address] [place] [id number] Care Team Providers Name Role Phone CHANDLER, [...] Number Dhillon ANTHEM PREFERRED BASIC May 17 [id number] [phone] OSCAR LITTLE P ATIENT [place] PROVIDER SELF [phone] AN (FEDERAL) ORGANIZAT ION (PPO) [place] PREFERRED BASIC May 17 [id number] [phone] OSCAR MACEDO PATIENT FEDERAL PROVIDER SELF 2002 22 4 AN ORGANIZAT ION (PPO) [place]-F PRESCRIPT BCBS May 17, [id number] [phone] OSCAR PASTRANA PATIENT EP BCBS ION FEP [phone] AN PLAN MEDICARE MEDICARE PART Jan 15, PART A [id number] OSCAR LITTLE PATIENT (WNR) (M) A 2008 [id number] 2 AN Selected Encounter This section includes the information on record at [place] for the Encounter. Date/Time Encounter Type Encounter Reason Provider Source Description Jul 19, 2020 OFFICE OPTOMETRY ICD-10-CM H52.7 NORA ROJAS 02:00 PM CONSULTATION Unspecified disorder of refraction with Provider Comments: Unspecified Disorder of Refraction IHE Encounter Template Text not used by [facility] Assessments - Encounter Diagnoses This section includes the primary and secondary diagnoses documented forthe Encounter. 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 This section includes future appointments and future orders which are active, pending or scheduled.Future Appointments This section includes appointments that were scheduled to occur 6 months from the date of the Encounter, up to a maximum of 20 appointments. The [facility] [place] [facility] Appointment Date/Time Appointment Type Appointment Facili ty Name Jul 22, 2020 09:00 AM AM[place]ORY [place]IC[place] [facility] Jul 29, 2020 11:00 AM AMBUL[place]ORY - [place]ONE [place] [facility] Jul 31, 2020 11:00 AM [place] [facility] Aug 13, 2020 10:00 AM [place]IC[place] [facility] Aug 21, 2020 10:00 AM [place]IC[place] [facility] Aug 21, 2020 11:00 AM AM[place] [facility] October 02, 2020 10:15 AM AMBULATORY [place] [facility] October 09, 2020 01:00 PM AM[place]UL[place]ORY [place]IC[place] [facility] Oct 28, 2020 11:00 AM AMBULATORY - NONE [place] [facility] Nov 04, 2020 01:00 PM AM[place] [facility] Nov 12, 2020 08:30 AM AMBULATORY - NONE [place] [facility] Nov 19, 2020 02:00 PM [place] [facility] Dec 05, 2020 08:00 AM AMBULATORY - NONE [facility] Dec 11, 2020 12:00 PM AMBULATORY - PSYCHIATRY [facility] Dec 23, 2020 11:00 AM AMBULATORY - REHAB MEDICINE [facility] Dec 30, 2020 10:15 AM AMBULATORY - NONE [facility] Active, Pending, and Scheduled Orders This section includes a listing of several types of active, pending, and scheduled orders, including clinic medications orders, diagnostic test orders, procedure orders and consult orders; where the start date of the order is 45 days before the date of the Encounter or 45 days after the date of the Encounter. The data comes from all [place] treatment facilities. Test Date/Time Test Type Test Details Facility Name Jul 29, 2020 12:57 PM Consult Order COMMUNITY CARE-COLONOSCOPY [facility] SCREENING Cons [employer] Surgical Procedures: All associated to the encounter This section includes all Surgical Procedures and Surgical Procedure Notes associated to the Encounter.Surgical Procedures This section includes all Surgical Procedures associated to the Encounter.Surgical Procedure Date/Time Procedure Procedure Type Procedure Provider Source Qualifiers Jul 19, 2020 DETERMINE DETERMINE GR-SERVICE BY NORA ROJAS 02:00 PM REFRACTIVE STATE REFRACTIVE [facility] RESIDENT [facility] Surgical Notes There are no notes associated with this procedure. Surgical Procedure Date/Time Procedure Procedure Type Procedure Provider Source Qualifiers Jul 19, 2020 EYE EXAM&TX EYE EXAM&TX GR-SERVICE BY NORA NAVARRO 02:00 PM ESTAB PT 1/>VST ESTAB PT 1/>VST RESIDENT [facility] Surgical Notes There are no notes associated with this procedure. Surgical Procedure Date/Time Procedure Procedure Type Procedure Provider Source Qualifiers Jul 19, 2020 Refraction DETERMINE NORA ROJAS 02:00 PM REFRACTIVE STATE [facility] Surgical Notes There are no notes associated with this procedure. Surgical Procedure Date/Time Procedure Procedure Type Procedure Provider Source Qualifiers Jul 19, 2020 Self-Care Ed SELF-CARE ED NORA ROJAS 02:00 PM Provided to Pt PROVIDED TO PT [facility] Surgical Notes There are no notes associated with this procedure. Social History: Smoking Status (Most current) and Tobacco Use (All prior to encounter date) This section includes the most current, and the historical, smoking and tobacco-related health factors from the [place] facility where the Encounter took place.Current Smoking Status This section includes the most current smoking, or tobacco-related health factor, from the [place] facility where the Encounter took place. Date/Time Current Smoking Status Comment Facility Apr 09, 2020 11:00 AM VA-TOBACCO FORMER USER [facility]EL[facility] Tobacco Use History This section includes a history of the smoking, or tobacco-related health factors, that were collected on or before the date of the Encounter. The data comes from the [place] facility where the Encounter took place. Date/Time Smoking Status/Tobacco Use Comment [facility] Apr 09, 2020 11:00 AM VA-TOBACCO QUIT 15 YRS OR MORE [place] [facility] Jan 14, 2018 03:08 PM VA-TOBACCO FORMER USER [facility] [facility] Jan 14, 2018 03:08 PM VA-TOBACCO QUIT 15 YRS OR MORE [place] [facility] Mar 16, 2017 09:08 AM QUIT TOBACCO USE > 7 YEARS AGO [place] [facility] quit 1983Mar 04, 2016 10:28 AM QUIT TOBACCO USE > 7 YEARS AGO [place] [place] [facility] Quit 1983Mar 10, 2005 10:47 AM H[place] SMOKING [place] [facility] 1983Mar 31, 2004 09:26 AM H[place]ORY OF SMOKING [place] [facility] Mar 31, 2004 09:26 AM QUIT TOBACCO USE > 7 YEARS AGO [place] [facility] Aug 22, 2001 01:30 PM HISTORY OF SMOKING [place] [facility] Advance Directives: All historical and current Section Date Range: From patient's date of to the date document was created. This section includes ALL of a patient's completed or amended [facility] Advance and Rescinded Directives. The entries below indicate that a directive exists for the patient, but an actual copy is not included with this document. The data comes from all [place] facilities. Date Advance Directives Provider Source Feb 23, 2014 ADVANCE DIRECTIVE EYAL MONTILLA [facility] Encounter Notes: All associated encounter notes This section contains the clinical notes associated to the Encounter. Date/Time Encounter Note(s) Provider Source Jul 19, 2020 02:19 PM EYE CONSULT: NORA ROJAS LOCAL TITLE: Eye Resident Consult Note [facility] STANDARD TITLE: EYE CONSULT DATE OF NOTE: JUL 19, 2020@14:19 ENTRY DATE: JUL 19, 2020@14:19:14 AUTHOR: MIRACLE RICK COSIGNER: NORA ROJAS URGENCY: STATUS: COMPLETED Eye Resident Consult Note Has ADDENDA NEW OR ESTABLISHED PATIENT OPHTHALMIC EX AMINATION CONSULTATION, SPECIALTY CODE OR E/M SERVICE Active Outpatient Medications (excluding Supplie s): Active Outpatient Medications Status 1) BUDESONIDE 80/FORMOTER 4.5MCG 120D INH INHA LE 2 PUFFS ACTIVE BY MOUTH TWICE A DAY FOR BREATHING/RINSE MOUTH WITH WATER,SWISH AROUND AND SPIT OUT AFTER USI NG INHALER 2) CLOPIDOGREL BISULFATE 75MG TAB TAKE ONE TAB LET BY ACTIVE MOUTH EVERY DAY TO PREVENT BLOOD CLOTS 3) KETOCONAZOLE 2% SHAMPOO SHAMPOO SMALL AMOUN T ACTIVE TOPICALLY ON MONDAYS AND THURSDAYS 4) LISINOPRIL 5MG TAB TAKE ONE TABLET BY MOUTH EVERY DAY ACTIVE TO CONTROL BLOOD PRESSURE 5) OMEPRAZOLE 20MG EC CAP TAKE ONE CAPSULE BY MOUTH ACTIVE EVERY DAY FOR STOMACH ACID (TAKE HALF-LAMONT R BEFORE A MEAL(S) 6) POLYETHYLENE GLYCOL 3350 ORAL PWDR TAKE 1 C APFUL (17 ACTIVE GRAMS) BY MOUTH EVERY DAY , DISSOLVED IN 4 TO 8 OZ. CLEAR LIQUID / FOR CONSTIPATION 7) ROSUVASTATIN CA 40MG TAB TAKE ONE-HALF TABL ET BY ACTIVE MOUTH EVERY DAY TO LOWER CHOLESTEROL 8) SERTRALINE HCL 50MG TAB TAKE THREE TABLETS BY MOUTH ACTIVE EVERY DAY FOR DEPRESSION OR ANXIETY Active Non-VA Medications Status 1) Non-VA ASPIRIN 325MG TAB 325MG MOUTH EVERY DAY ACTIVE 2) Non-VA CYANOCOBALAMIN 250MCG TAB 250MCG BY MOUTH ACTIVE EVERY DAY 10 Total Medications Allergies/Adverse Reactions: Patient has answered NKA HGB A1C: 5.6 (05/02/20 13:53) GLU: 93 (05/02/20 13:53) BUN: 19 (05/02/20 13:53) B/P: 126/80 (07/04/2020 13:51) BODY MASS INDEX - JUL 04, 2020@13:51:33 37.7 Active problems - Computerized Problem List is t he source for the followin. Benign essential hypertension 2. Transient monocular blindness 3. Gastroesophageal reflux disease 4. Hallucinations 5. Umbilical hernia 6. Lichen simplex chronicus 7. Tinea pedis 8. Obstructive sleep apnea of adult 9. Mood disorder 10. Chronic kidney disease stage 3 11. Keratoderma 12. 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 Prostate cancer 15. Asthma 16. Low back pain 17. History of polyp of colon 18. Obesity 19. Gastroesophageal reflux disease 20. Anxiety disorder 21. Bipolar disorder 22. Paranoia 23. Hyperlipidemia 75 year old WHITE MALE, ESTABLISHED patient CHIEF COMPLAINT AND HISTORY OF PRESENT ILLNESS ( HPI): Presents for CEE/consult from PCP for recent: #Transient Vision Loss OS -Onset 06/26/2020 -Lasted for 15 minutes -Describes as blacked out vision -Denies slurred speech, limb wea kness, facial weakness or headaches at time of onset -20 minutes after vision returned, bon nt arrived at ED at [facility] -Underwent the following imaging all i ch was unremarkable -CT head -CT lungs -MRI/MRA of head & neck -Blood work SEE NONVA MEDICAL RECORD FROM 06/27/19 21 -First episode per patient -No additional episodes sine then -Denies slurred speech, limb weakness, f acial weakness, and headaches today -Pertinent medications -Plavix: tod ay is last day patient is supposed to take it. LD @ 8 a.m. -Lisinopril -Aspirin 325 mg po #Reports adequate vision OU -Reports clear vision OU sc at distance -Uses [facility]; meets ADLs. Neurological and Psychiatric Status: Orientation : Oriented to person, time, place Mood and Affect: normal, no agitation, no anxiety, no depressive behaviors in clinic OCULAR HISTORY: 1. Posterior Vitreous Detachment OS 2. Pseudophakia OU 3. Ectropion Repair RLL with Dr. Etienne 09/2017 4. H/o Ocular Hypertension DISTANCE VISUAL ACUITY (without correction) OD: 20/25+ OS: 20/25+ NEAR VISUAL ACUITY: OU: 0.4/0.63M - smooth OU: 0.4/0.50M - slow Current Rx (NVOs) OD: +2.25 SPH OS: +2.00 SPH REFRACTION and BEST-CORRECTED VISION OD: -0.25 SPH 20/20- OS: -0.50 SPH 20/20- Add: +2.50 OCULAR MOTILITY (EOM): Full without diplopia or pain OU, pursuits and saccades intact OU CONFRONTATION VIS VARGAS: full to finger counti ng OD & OS PUPILS: PERRLA, NO APD PRESENT OU ORBITS/ADNEXA: Normal OU ANTERIOR SEGMENT AND SLIT LAMP EXAM: Lids/Lashes: OD: lower lid laxity, s/p ectropion repa ir OS: clear Scleral and Conjunctiva: OD: white and quiet OS: white and quiet Cornea: OD: clear without staining OS: clear without staining Anterior Chamber: clear and free of cells or fl are OU Von Ashok Angle estimation: OD: 4x4 OS: 4x4 Iris: normal/intact OU/ no neovascularization present ou Tonometry: iCare OD 16.9 OS 16.6 Time: 2:20 p.m. DILATION OU: PATIENT EDUCATED ON SIDE EFFECTS O F DILATION PRIOR TO DROP INSTILLATION. SIDE EFFECT DISCUSSED INCLUDE LIGH T SENSITIVITY AND BLURRED VISION AT NEAR. 1 gtt 1% Tropicamide 1 gtt 2.5% Phenylephrine INTERNAL EYE EXAMINATION BY SLIT LAMP, FUNDUSCOP Y AND BINOCULAR INDIRECT OPHTHALMOSCOPE: Lens: OD: PCIOL - clear & centered OS: PCIOL - clear & centered Vitreous: OD: syneresis present OS: syneresis present, +PVD Nerve: RIM INTACT AND WITHOUT FOCAL DEFECTS OR PALLOR OU OD C/D: 0.30R; decentered IT, shallow, P PA 360 OS C/D: 0.35R; decentered IT, PPA 360 Macula: Even pigment, NO macular edema OU Vessels: Normal course and caliber OU Mid-peripheral and Peripheral Retina: Flat and intact 360 degrees OU OD: S & IT pavingstone OS: S & IN pavingstone ASSESSMENT/PLAN 1. History of Amaurosis Fugax OS - 06/26/2020 - No subsequent occurrences - Same day testing performed by ER (lab work-up, CT of head & lungs; MRI/MRA head & neck) were unremarkable - No associated stroke symptoms during or since isolated episode - Ocular health unremarkable today //Advised to continue with statin and aspirin 32 5 mg as prescribed by PCP. Advised call eye clinic or return to ED [facility] if another episode presents. Educated on accompanying stroke symptoms. 2. Pseudophakia OU //Noted. Monitor. 3. S/P Ectropion Repair RLL with Dr. Etienne 8 //Noted. 4. H/o Ocular Hypertension - IOPs normotensive today //Monitor annually. 5. Refractive Error/Presbyopia OU //Continue with habitual NVOs. RTC ORDER: 1 year DFE - sooner PRN RESIDENT SUPERVISION: I have seen and discussed this patient with my supervising doctor. My supervising doctor was present for and/or directly examined this patient. My supervising doctor geovanny perez with my assessment and plan and is identified as a cosigner on this note. Note complete (x) /chris/ NORA ROJAS OD CHIEF, OPTOMETRY Signed: 07/20/2020 14:13 for Miracle Rick OD Optometry Resident - [facility] /marcus ROJAS OD CHIEF, OPTOMETRY Cosigned: 07/20/2020 14:13 07/20/2020 ADDENDUM STATUS: COMPLETED I reviewed the entire note above and discussed t he history, findings, and management plan for this pat ient with the resident. I agree with all elements as documented in the above note. /chris/ NORA ROJAS OD CHIEF, OPTOMETRY Signed: 07/20/2020 14:13
--- OUTSIDE RECORDS SUMMARY | 2020-12-05 21:36 | XMS_ITS | Encounter Summary ---
:1945 Author Organization Department [facility] rs Address [address] [place] [id number] Care Team Providers Name Role Phone CHANDLER, [...] Number Dhillon ANTHEM PREFERRED BASIC May 17 [id number] [phone] OSCAR LITTLE P ATIENT [place] PROVIDER SELF 2002 [id number] AN (FEDERAL) ORGANIZAT ION (PPO) [place] PREFERRED BASIC May 17 [id number] [phone] OSCAR MACEDO PATIENT FEDERAL PROVIDER SELF 2002 22 4 AN ORGANIZAT ION (PPO) CAREMARK-F PRESCRIPT BCBS May 17, [id number] [phone] ZEINAOSCAR PATIENT EP BCBS ION FEP 2010 0 [id number] AN PLAN MEDICARE MEDICARE PART Jan 15, PART A [id number] OSCAR LITTLE PATIENT (WNR) (M) A 2008 [id number] 2 AN Selected Encounter This section includes the information on record at [place] for the Encounter. Date/Time Encounter Type Encounter Reason Provider Source Description Jul 19, 2020 THERAPEUTIC PHYSICAL THERAPY ICD-10-CM R26.89 ARMBRUST,K URT 01:00 PM EXERCISES Other abnormalities of gait and mobility with Provider Comments: Other Abnormalities of Gait and Mobility IHE Encounter Template Text not used by [facility] Assessments - Encounter Diagnoses This section includes the primary and secondary diagnoses documented forthe Encounter. Date/Time Primary/Secondary Diagnosis Name Provider Source Diagnosis Jul 24, 2020 PRIMARY Other abnormalities JOSE F BARKER IVER 04:43 PM of gait and [place] [facility] mobility Plan of Treatment: Future Appointments (+ 6 months) and Future Tests (+/- 45 days) The Plan of Treatment section includes future care activities for the patient from all [place] treatment facilities. This section includes future appointments and future orders which are active, pending or scheduled.Future Appointments This section includes appointments that were scheduled to occur 6 months from the date of the Encounter, up to a maximum of 20 appointments. The data comes from all [facility]. Appointment Date/Time Appointment Type Appointment Facili ty Name Jul 22, 2020 09:00 AM AMBULATORY [place]ICINE [place] [facility] Jul 29, 2020 11:00 AM AM[place]UL[place]ORY [place]ONE [place] [facility] Jul 31, 2020 11:00 AM [place] [facility] Aug 13, 2020 10:00 AM AMBULATORY - [place]ICINE [place] [facility] Aug 21, 2020 10:00 AM AMBULATORY - MEDICINE [place] [facility] Aug 21, 2020 11:00 AM [place] [facility] October 02, 2020 10:15 AM AM[place]UL[place] [facility] October 09, 2020 01:00 PM AMBULATORY - MEDICINE [place] [facility] Oct 28, 2020 11:00 AM AMBULATORY - NONE [place] [facility] Nov 04, 2020 01:00 PM AM[place] [facility] Nov 12, 2020 08:30 AM AMBULATORY [place] NONE [place] [facility] Nov 19, 2020 02:00 PM [place] [facility] Dec 05, 2020 08:00 AM AMBULATORY - NONE [place] [facility] Dec 11, 2020 12:00 PM AM[place] [facility] Dec 23, 2020 11:00 AM [place] [facility] Dec 30, 2020 10:15 AM [place]ORY [facility] NONE [place] [facility] Active, Pending, and Scheduled Orders This section includes a listing of several types of active, pending, and scheduled orders, including clinic medications orders, diagnostic test orders, procedure orders and consult orders; where the start date of the order is 45 days before the date of the Encounter or 45 days after the date of the Encounter. The data comes from all [place] treatment facilities. Test Date/Time Test Type Test Details Facility Name Jul 29, 2020 12:57 PM Consult Order COMMUNITY CARE-COLONOSCOPY [facility] SCREENING Cons Store Detective's Choice Surgical Procedures: All associated to the encounter This section includes all Surgical Procedures and Surgical Procedure Notes associated to the Encounter.Surgical Procedures This section includes all Surgical Procedures associated to the Encounter.Surgical Procedure Date/Time Procedure Procedure Type Procedure Provider Source Qualifiers Jul 19, 2020 THERAPEUTIC THERAPEUTIC GP-OP PT ARMBRJOSE F LEES ADITYA R IVER 01:00 PM EXERCISES EXERCISES SERVICES [facility] Surgical Notes There are no notes associated with this procedure. Surgical Procedure Date/Time Procedure Procedure Type Procedure Provider Source Qualifiers Jul 19, 2020 THERAPEUTIC THERAPEUTIC GP-OP PT ARMBRJOSE F LEES ADITYA R IVER 01:00 PM ACTIVITIES ACTIVITIES SERVICES [facility] Surgical Notes There are no notes associated with this procedure. Surgical Procedure Date/Time Procedure Procedure Type Procedure Provider Source Qualifiers Jul 19, 2020 PT EVAL MOD PT EVAL MOD GP-OP PT ARMJOSE F SILVER ADITYA R IVER 01:00 PM COMPLEX 30 MIN COMPLEX 30 MIN SERVICES [facility] Surgical Notes There are no notes associated with this procedure. Surgical Procedure Date/Time Procedure Procedure Type Procedure Provider Source Qualifiers Jul 19, 2020 Therapeutic THERAPEUTIC ARMJUANANABEELJOSE F ADITYA R IVER 01:00 PM Dynamic ACTIVITIES [facility] Activities,ea 15min Surgical Notes There are no notes associated with this procedure. Surgical Procedure Date/Time Procedure Procedure Type Procedure Provider Source Qualifiers Jul 19, 2020 Therapeutic THERAPEUTIC ARMNADEEMJOSE F ADITYA R IVER 01:00 PM Exercises,1 or EXERCISES [facility] more Areas,ea 15min Surgical Notes There are no notes associated with this procedure. Surgical Procedure Date/Time Procedure Procedure Type Procedure Provider Source Qualifiers Jul 19, 2020 PT PT EVAL MOD ARMBRUSTJOSE F ADITYA RI JAKUB 01:00 PM Evaluation,Moder COMPLEX 30 MIN [facility] ate Complexity Surgical Notes There are no notes associated with this procedure. Social History: Smoking Status (Most current) and Tobacco Use (All prior to encounter date) This section includes the most current, and the historical, smoking and tobacco-related health factors from the [place] facility where the Encounter took place.Current Smoking Status This section includes the most current smoking, or tobacco-related health factor, from the [place] facility where the Encounter took place. Date/Time Current Smoking Status Comment Facility Apr 09, 2020 11:00 AM VA-TOBACCO FORMER USER Yue CELIS [facility] Tobacco Use History This section includes a history of the smoking, or tobacco-related health factors, that were collected on or before the date of the Encounter. The data comes from the [place] facility where the Encounter took place. Date/Time Smoking Status/Tobacco Use Comment [facility] Apr 09, 2020 11:00 AM VA-TOBACCO QUIT 15 YRS OR MORE ADITYA ARREOLA [facility] Jan 14, 2018 03:08 PM VA-TOBACCO FORMER USER [place] [facility] Jan 14, 2018 03:08 PM VA-TOBACCO QUIT 15 YRS OR MORE [facility] Mar 16, 2017 09:08 AM QUIT TOBACCO USE > 7 YEARS AGO ADITYA [facility] quit 1983Mar 04, 2016 10:28 AM QUIT TOBACCO USE > 7 YEARS AGO [facility] Quit 1983Mar 10, 2005 10:47 AM HISTORY OF SMOKING ADITYA POLO [facility] 1983Mar 31, 2004 09:26 AM HISTORY OF SMOKING [place] [facility] Mar 31, 2004 09:26 AM QUIT TOBACCO USE > 7 YEARS AGO [facility] Aug 22, 2001 01:30 PM HISTORY OF SMOKING [place] IVER [facility] Advance Directives: All historical and current Section Date Range: From patient's date of to the date document was created. This section includes ALL of a patient's completed or amended [place] Advance and Rescinded Directives. The entries below indicate that a directive exists for the patient, but an actual copy is not included with this document. The data comes from all [place] facilities. Date Advance Directives Provider Source Feb 23, 2014 ADVANCE DIRECTIVE EYAL MONTILLA [facility] Encounter Notes: All associated encounter notes This section contains the clinical notes associated to the Encounter. Date/Time Encounter Note(s) Provider Source Jul 19, 2020 12:30 PM PHYSICAL THERAPY OUTPATIENT CONSULT: JOSE F MICHAEL [place] LOCAL TITLE: CONSULT: Physical Therapy Outpatie [facility] STANDARD TITLE: PHYSICAL THERAPY OUTPATIENT CONS ULT DATE OF NOTE: JUL 19, 2020@12:30 ENTRY DATE: JUL 19, 2020@12:30:27 AUTHOR: JOSE F BARKER COSIGNER: URGENCY: STATUS: COMPLETED Diagnosis: Unspecified Abnormalities of Gait and Mobility(ICD-10-CM R26.9) Referred by: TOSHIA [place] Referred for: Evaluate and treat Date of Onset: chronic Start of Physical therapy plan of care: 07/19/20 13:00 Pt. is a 75 year old MALE SUBJ: Pt.'s primary complain t: A few falls over past few years plus several near misses. Issued cane a coupl e of weeks ago and this has helped. Doesn't feel as vigorous as he used to. Endorses a less active Winter secondary to the pandemic. Prior level of function: No functional limitatio ns. Pt.'s Goal: Prevent falls, have more energy. OBJ: Posture: Non-contributory. Lower extremity AROM, strength and flexibility: Strength Screen: 30 second sit to stand: 10 repe titions (norms for males in age group 75-79: 11-17 repetitions). Heel walking: Good Toe walking: Good Feet together eyes open: 30+ seconds Feet together eyes closed: 30+ seconds Feet together three perturbations: good Tandem standing (feet heel to toe): 5 seconds Single leg standing right: 7 seconds Single leg standing left: 6 seconds Turning in a cantwell: 3 seconds each direction Timed Up & Go (TUG) Average of two trials: 7.0 s econds, > 13.5 seconds = fall risk PMH (from problem list) Benign essential hypertension (SCT 06598Hmfojxgl t monocular blindness (SCT 12628570) Gastroesophageal reflux disease (SCT 235Hallucin ations (SCT 0019619) Umbilical hernia (SCT 656681 007) Lichen simplex chronicus (SCT 43749866) Tinea pedis (SCT 6617367) Obstruct denzel sleep apnea of adult (SCT 9921076088699) Mood disorder (SCT 04212670) Chronic kidney disease stage 3 (SCT 955314648) Keratoderma ([facility] 347567070) Allergic conjunctivitis ([facility] 086999725) 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 Most likely cause is mild deconditioning. Mobile should benefit fro m participation in activities that improve lower extremity strength / activity tolerance as well as focusing on balance specific activities. terminal block assembler goal: Mobile has zero falls and repor ts improved balance. Short term goal: Mobile to perform HEP / interv entions independently. INTERVENTION/PLAN: HEP per below 1-2 times daily 1. Squats while holding onto the sink: Squat down low enough to be in a sitting position, then return to full standing p osition. It may help to place a chair behind you. Perform 10+ serina es. Alternately climb stairs more frequently during the day. Increase walking time and distance. 2. Alternating single leg ba lancing: Initially perform with a good hand hold for support (Kitchen sink?), but then let go once balance is established. Perform repeatedly on one side for approximately 30 seco nds then switch to the other side so as to not become too tired. Eventually progress to performing with your eyes closed. 3. Calf stretch: Hold onto sink or wall and plac e one leg well back from the other. Bend front knee and k eep back leg's knee straight, while leaning into the wall / sink. Stretch is felt in calf of back le g. Hold stretch for 30 - 60 seconds each side. 4. Follow up PRN via phone c all or with office visit. Recommended allow 4-6 weeks to assess effectiveness of above inter ventions. pleased with this intervention. The above results and recommendations were expla ined to the Mobile (or surrogate), who verbally acknowledged an underst anding thereof. The plan of care, the expected benefits, and kno wn risks associated with the recommended treatment, alternative treatments, o r no treatment with the associated risks has been discussed with the Vet eddie (or surrogate). The (or surrogate) had an opportunit y to ask questions which were answered to the 's (or surrogate's) satisfaction. The patient (or surrogate) agreed to proceed with the recommended plan of c are. Please do not hesitate to call contact me with q uestions/concerns- Thank you! /chris/ Jose F Barker Chief, PT/OT; Licensed in [place] Signed: 07/24/2020 16:43
--- OUTSIDE RECORDS SUMMARY | 2020-12-05 21:36 | XMS_ITS | Encounter Summary ---
:1945 Author Organization Department [facility] rs Address [address] [place] [address] Care Team Providers Name Role Phone CHANDLER, [...] Number Dhillon ANTHEM PREFERRED BASIC May 17 [id number] [phone] OSCAR LITTLE P ATIENT [place] PROVIDER SELF 2002 22 [id number] AN (FEDERAL) ORGANIZAT ION (PPO) [place] PREFERRED BASIC May 17 [id number] [phone] OSCAR MACEDO PATIENT FEDERAL PROVIDER SELF 2002 22 4 AN ORGANIZAT ION (PPO) [place]-F PRESCRIPT BCBS May 17, [id number] [phone] FR ZEINAOSCAR PATIENT EP BCBS ION FEP 2010 0 [id number] AN PLAN MEDICARE MEDICARE PART Jan 15, PART A [id number] SIDNEY OSCAR PATIENT (WNR) (M) A 2008 [id number] 2 AN Selected Encounter This section includes the information on record at [place] for the Encounter. Date/Time Encounter Type Encounter Reason Provider Source Description Jul 23, 2020 09:48 Outpatient PRIMARY TYRESE HOWELL AM Encounter CARE/MEDICINE IHE Encounter Template Text not used by [place] Plan of Treatment: Future Appointments (+ 6 months) and Future Tests (+/- 45 days) The Plan of Treatment section includes future care activities for the patient from all [place] treatment facilities. This section includes future appointments and future orders which are active, pending or scheduled.Future Appointments This section includes appointments that were scheduled to occur 6 months from the date of the Encounter, up to a maximum of 20 appointments. The data comes from all [facility]. Appointment Date/Time Appointment Type Appointment Facili ty Name Jul 29, 2020 11:00 AM AM[place]ULATORY - NONE [place] [facility] Jul 31, 2020 11:00 AM [place] [facility] Aug 13, 2020 10:00 AM [place] [facility] Aug 21, 2020 10:00 AM [place] [facility] Aug 21, 2020 11:00 AM [place] [facility] October 02, 2020 10:15 AM AM[place] [facility] October 09, 2020 01:00 PM [place]ORY [place] [facility] Oct 28, 2020 11:00 AM AMBULATORY - NONE [place] [facility] Nov 04, 2020 01:00 PM [place] [facility] Nov 12, 2020 08:30 AM AMBULATORY - NONE [place] [facility] Nov 19, 2020 02:00 PM [place] [facility] Dec 05, 2020 08:00 AM AMBULATORY - NONE [place] [facility] Dec 11, 2020 12:00 PM [place] [facility] Dec 23, 2020 11:00 AM [place] [facility] Dec 30, 2020 10:15 AM AMBULATORY - NONE [place] [facility] Active, Pending, and Scheduled Orders This section includes a listing of several types of active, pending, and scheduled orders, including clinic medications orders, diagnostic test orders, procedure orders and consult orders; where the start date of the order is 45 days before the date of the Encounter or 45 days after the date of the Encounter. The data comes from all [place] treatment facilities. Test Date/Time Test Type Test Details Facility Name Jul 29, 2020 12:57 PM Consult Order COMMUNITY CARE-COLONOSCOPY ADITYA ARREOLA [facility] SCREENING Cons Cattle Inspector's Choice Social History: Smoking Status (Most current) and Tobacco Use (All prior to encounter date) This section includes the most current, and the historical, smoking and tobacco-related health factors from the [place] facility where the Encounter took place.Current Smoking Status This section includes the most current smoking, or tobacco-related health factor, from the [place] facility where the Encounter took place. Date/Time Current Smoking Status Comment Facility Apr 09, 2020 11:00 AM VA-TOBACCO FORMER USER [place] [facility] [facility] Tobacco Use History This section includes a history of the smoking, or tobacco-related health factors, that were collected on or before the date of the Encounter. The data comes from the [place] facility where the Encounter took place. Date/Time Smoking Status/Tobacco Use Comment [facility] Apr 09, 2020 11:00 AM VA-TOBACCO QUIT 15 YRS OR MORE [place] [place] [facility] Jan 14, 2018 03:08 PM VA-TOBACCO FORMER USER [place] [facility] Jan 14, 2018 03:08 PM VA-TOBACCO QUIT 15 YRS OR MORE [facility] [place] [facility] Mar 16, 2017 09:08 AM QUIT TOBACCO USE > 7 YEARS AGO AD[facility]A [place] [facility] quit 1983Mar 04, 2016 10:28 AM QUIT TOBACCO USE > 7 YEARS AGO ADITYA [place] [facility] Quit 1983Mar 10, 2005 10:47 AM HISTORY OF SMOKING [place] [facility] 1983Mar 31, 2004 09:26 AM HISTORY OF SMOKING [place] [facility] Mar 31, 2004 09:26 AM QUIT TOBACCO USE > 7 YEARS AGO [facility] [place] [facility] Aug 22, 2001 01:30 PM HISTORY OF SMOKING [place] [facility] Advance Directives: All historical and current Section Date Range: From patient's date of to the date document was created. This section includes ALL of a patient's completed or amended [place] Advance and Rescinded Directives. The entries below indicate that a directive exists for the patient, but an actual copy is not included with this document. The data comes from all [place] facilities. Date Advance Directives Provider Source Feb 23, 2014 ADVANCE DIRECTIVE EYAL MONTILLA [facility] Encounter Notes: All associated encounter notes This section contains the clinical notes associated to the Encounter. Date/Time Encounter Note(s) Provider Source Jul 23, 2020 09:48 AM PRIMARY CARE SECURE MESSAGING: JEANETH HOWELL [facility] LOCAL TITLE: PRIMARY CARE SECURE MESSAGING [facility] STANDARD TITLE: PRIMARY CARE SECURE MESSAGING DATE OF NOTE: JUL 23, 2020@09:48:50 ENTRY DATE: JUL 23, 2020@09:48:51 AUTHOR: TYRESE HOWELL EXP COSIGNER: URGENCY: STATUS: COMPLETED PRIMARY CARE SECURE MESSAGING Has ADDENDA ------Original Message Sent: 07/22/2020 07:20 PM From: KATHY LITTLE To: Tevin [email or web address] Subject: Black Tarry stool Attachments: [id number] (26.96 KB) Today was the first day without a watery bowel m ovement, however, it looked like a black tarry cow flop. Copy from [employer] is attached. This is after a period of time on clopid ogrel, b12, and 4 caps of Pepto Bismol (to tighten the stool). ------Original Message Sent: 07/23/2020 09:48 AM From: TYRESE HOWELL To: KATHY LITTLE Subject: Black Tarry stool Hi Mr. Little, I will forward this message to your team . Pepto-Bismol can make the stool look black. Please call if you are having any signs and symptoms of feeling weak or light headed. The telephone triage #- [phone]. Jazmine Gonzales /chris/ TYRESE HOWELL Staff Nurse Signed: 07/23/2020 09:48 Receipt Acknowledged By: 07/23/2020 15:36 /chris/ TOSHIA [place] Nurse Practitioner Resident 07/23/2020 11:32 /chris/ Manny zapata MSN, OYSTER UNLOADER Nurse Practitioner Faculty 07/23/2020 ADDENDUM STATUS: COMPLETED TC to patient to discuss black stools. Phone robert amato could not be connected as a result of calling restrictions-- tried 2 phones and several calls, never rang. Black stools likely a side effect of pepto bismo l. Continue to eat a varied, healthy diet and monitor stool characteristics. He is due for a colonoscopy and this is recommended if he would like me to place the order. Alternately, dileep gamez send a fit test if he prefers though colo is more sensitive. /es/ TOSHIA [place] Nurse Practitioner Resident Signed: 07/23/2020 15:47 /es/ Manny Arteaga MSN, OYSTER UNLOADER Nurse Practitioner Faculty Cosigned: 07/23/2020 16:46 Receipt Acknowledged By: 07/23/2020 17:28 /es/ TYRESE HOWELL Staff Nurse 07/23/2020 ADDENDUM STATUS: COMPLETED secure message sent /chris/ TYRESE HOWELL Staff Nurse Signed: 07/23/2020 17:28
--- OUTSIDE RECORDS SUMMARY | 2020-12-05 21:36 | XMS_ITS | Encounter Summary ---
:1945 Author Organization Department [facility] rs Address [address] [place] [id number] Care Team Providers Name Role Phone CHANDLERMANNY [...] Number Dhillon ANTHEM PREFERRED BASIC May 17 [id number] [phone] OSCAR LITTLE P ATIENT BCBS OF [place] PROVIDER SELF 2002 [id number] AN (FEDERAL) ORGANIZAT ION (PPO) [place] PREFERRED BASIC May 17 [id number] [phone] OSCAR MACEDO PATIENT FEDERAL PROVIDER SELF 2002 22 4 AN ORGANIZAT ION (PPO) [place]-F PRESCRIPT BCBS May 17, [id number] [phone] FR OSCAR PASTRANA PATIENT EP BCBS ION FEP 2010 0 [id number] AN PLAN MEDICARE MEDICARE PART Jan 15, PART A [id number] OSCAR LITTLE PATIENT (WNR) (M) A 2008 [id number] 2 AN Selected Encounter This section includes the information on record at [place] for the Encounter. Date/Time Encounter Type Encounter Description Reason Provider Source Jul 17, 2020 11:00 Outpatient Encounter MH INTGRTD CARE IND AM IHE Encounter Template Text not used [...] 20 appointments. The data comes from all [facility]. Appointment Date/Time Appointment Type Appointment Facili ty Name Jul 19, 2020 01:00 PM AM[place]ULATORY [place] [facility] Jul 19, 2020 02:00 PM [place] [facility] Jul 22, 2020 09:00 AM [place] [facility] Jul 29, 2020 11:00 AM [place] [facility] Jul 31, 2020 11:00 AM AM[place]UL[place] [facility] Aug 13, 2020 10:00 AM [place] [facility] Aug 21, 2020 10:00 AM [place] [facility] Aug 21, 2020 11:00 AM AM[place]ULATORY [place]RY [place] [facility] October 02, 2020 10:15 AM AMBULATORY - PS[place]CHIATRY [place] [facility] October 09, 2020 01:00 PM [place] [facility] Oct 28, 2020 11:00 AM [place]ORY [place] [facility] Nov 04, 2020 01:00 PM AM[place]ULATORY [place]IATRY [place] [facility] Nov 12, 2020 08:30 AM [place] [facility] Nov 19, 2020 02:00 PM AM[place]ULATORY [place] [facility] Dec 05, 2020 08:00 AM [place] [facility] Dec 11, 2020 12:00 PM AMBULATORY [place]IATRY [place] [facility] Dec 23, 2020 11:00 AM AM[place]ULAT[place] [facility] Dec 30, 2020 10:15 AM [place]ORY [place] [facility] Active, Pending, and Scheduled Orders This section includes a listing of several types of active, pending, and scheduled orders, including clinic medications orders, diagnostic test orders, procedure orders and consult orders; where the start date of the order is 45 days before the date of the Encounter or 45 days after the date of the Encounter. The data comes from all [place] treatment facilities. Test Date/Time Test Type Test Details Facility Name Jul 29, 2020 12:57 PM Consult Order COMMUNITY CARE-COLONOSCOPY ADITYA ARREOLA [facility] SCREENING Cons Biopsychologist's Choice Social History: Smoking Status (Most current) [...] 09, 2020 11:00 AM VA-TOBACCO FORMER USER Yeu CELIS [facility] Tobacco Use History This section includes a history of the smoking, or tobacco-related health factors, that were collected on or before the date of the Encounter. The data comes from the [place] facility where the Encounter took place. Date/Time Smoking Status/Tobacco Use Comment [facility] Apr 09, 2020 11:00 AM VA-TOBACCO QUIT 15 YRS OR MORE [place] [facility] Jan 14, 2018 03:08 PM VA-TOBACCO FORMER USER [place] [facility] Jan 14, 2018 03:08 PM VA-TOBACCO QUIT 15 YRS OR MORE [place] [facility] Mar 16, 2017 09:08 AM QUIT TOBACCO USE > 7 YEARS AGO [place] [facility] quit 1983Mar 04, 2016 10:28 AM QUIT TOBACCO USE > 7 YEARS AGO [facility] [place] [facility] Quit 1983Mar 10, 2005 10:47 AM HISTORY OF SMOKING [place] [facility] 1983Mar 31, 2004 09:26 AM HISTORY OF SMOKING [place] [facility] Mar 31, 2004 09:26 AM QUIT TOBACCO USE > 7 YEARS AGO [place] [facility] Aug 22, 2001 01:30 PM HISTORY OF SMOKING [place] [facility] Advance Directives: All historical and current [...] 23, 2014 ADVANCE DIRECT[address] EYAL MONTILLA [facility] Encounter Notes: All associated encounter notes This section contains the clinical notes associated to the Encounter. Date/Time Encounter Note(s) Provider Source Jul 17, 2020 11:12 AM NO SHOW NOTE: MILI JAY LOCAL TITLE: Mental Health No Show/Clinic Cance l/Conversion Note ALYSSIA [facility] STANDARD TITLE: NO SHOW NOTE DATE OF NOTE: JUL 17, 2020@11:12 ENTRY DATE: JUL 17, 2020@11:13:10 AUTHOR: MILI JAY EXP COSIGNER: URGENCY: STATUS: COMPLETED MENTAL HEALTH NO SHOW/CLINIC CANCELLATION/CLINIC CONVERSION NOTE Appointment Date & Time: ACTION: Provider attempted to reach to d iscuss: No Show Cancellation by clinic (X) Cancellation by Conversion of clinic appointment REASON: for no show or clinic cancel/reschedule: Pt did not wish to speak with therapist. Cancelling this appt and arrange d meeting with Dr. Sam OUTCOME: Reached [place] [facility] Clinic rescheduled to: [facility] Clinic Telephone Clinic Face to Face Clinic New clinic appointment date/time: 's email address: Left [place] voicemail message: Any Acute Safety Concerns? No If Yes, Action Taken or Further Follow-up: (X) Co-sign MSAs at location to this note to treva danielle action on the clinic appt and add any additional instructi ons to MSA group. /chris/ MILI JAY Clinical Psychologist Signed: 07/17/2020 11:16 Receipt Acknowledged By: * AWAITING SIGNATURE * LUCINA SIM
--- OUTSIDE RECORDS SUMMARY | 2020-12-05 21:36 | XMS_ITS | Encounter Summary ---
:1945 Author Organization Department [facility] rs Address [address] [place] [address] Care Team Providers Name Role Phone CHANDLER, MANNY Primary Care Provider Unavailable TOSHIA PARRISH Unavailable Unavailable Insurance Providers: All historical [...] Number Dhillon ANTHEM PREFERRED BASIC May 17 [id number] [phone] OSCAR LITTLE P ATIENT BCBS OF [place] PROVIDER SELF 2002 22 [id number] AN (FEDERAL) ORGANIZAT ION (PPO) [place] PREFERRED BASIC May 17 [id number] [phone] OSCAR MACEDO PATIENT FEDERAL PROVIDER SELF 2002 22 4 AN ORGANIZAT ION (PPO) [place]-F PRESCRIPT BCBS May 17, [id number] [phone] FR OSCAR PASTRANA PATIENT EP BCBS ION FEP 2010 0 [id number] AN PLAN MEDICARE MEDICARE PART Jan 15, PART A [id number] OSCAR LITTLE PATIENT (WNR) (M) A 2008 [id number] 2 AN Selected Encounter This section includes the information on record at [place] for the Encounter. Date/Time Encounter Type Encounter Reason Provider Source Description Jul 22, 2020 OFFICE CARDIOLOGY ICD-10-CM G45.9 LAKESHA JONES 09:00 AM CONSULTATION Transient ARET M cerebral ischemic attack, unspecified with Provider Comments: Transient Cerebral Ischemic Attack, unspecified IHE Encounter Template Text not used by [facility] Assessments - Encounter Diagnoses This section includes the primary and secondary diagnoses documented forthe Encounter. Date/Time Primary/Secondary Diagnosis Name Provider Source Diagnosis Jul 22, 2020 PRIMARY Transient cerebral IRINA JONES IVER 03:12 PM ischemic attack, [facility] unspecified Jul 22, 2020 SECONDARY Amaurosis fugax IRINA JONES [place] 03:12 PM [place] [facility] Jul 22, 2020 SECONDARY Bifascicular block IRINA JONES R IVER 03:12 PM RET M [facility] Jul 22, 2020 SECONDARY Diarrhea, IRINA JONES R[place] 03:12 PM unspecified RET M [facility] Jul 22, 2020 SECONDARY Essential (primary) JONESIRINA MCGEE [place] 03:12 PM hypertension [facility] Jul 22, 2020 SECONDARY residential (current) JONESIRINA [place] 03:12 PM use of aspirin [place] [facility] Jul 22, 2020 SECONDARY Major depressive IRINA JONES AYANNA ER 03:12 PM disorder, single [facility] episode, unspecified Jul 22, 2020 SECONDARY Obstructive sleep IRINA JONES RI ANNMARIE 03:12 PM apnea (adult) RET M [facility] (pediatric) Jul 22, 2020 SECONDARY Other forms of JONESIRINA MCGEE [place] 03:12 PM dyspnea RET M T [facility] Jul 22, 2020 SECONDARY Other oil 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 This section includes future appointments and future orders which are active, pending or scheduled.Future Appointments This section includes appointments that were scheduled to occur 6 months from the date of the Encounter, up to a maximum of 20 appointments. The data comes from all [facility]. Appointment Date/Time Appointment Type Appointment Facili ty Name Jul 29, 2020 11:00 AM [place]ORY [place] [facility] Jul 31, 2020 11:00 AM AMBULATORY - [place]IATRY [place] [facility] Aug 13, 2020 10:00 AM [place] [facility] Aug 21, 2020 10:00 AM [place] [facility] Aug 21, 2020 11:00 AM AM[place]AT[place] [facility] October 02, 2020 10:15 AM AMBULATORY - PS[place]CHIATRY [place] [facility] October 09, 2020 01:00 PM [place] [facility] Oct 28, 2020 11:00 AM [place]ORY [place] [facility] Nov 04, 2020 01:00 PM AMBULATORY - [place]IATRY [place] [facility] Nov 12, 2020 08:30 AM [place] [facility] Nov 19, 2020 02:00 PM AM[place]ULATORY - [place]IC[place] [facility] Dec 05, 2020 08:00 AM [place]ORY [place] [facility] Dec 11, 2020 12:00 PM AMBULATORY - [place]IATRY [place] [facility] Dec 23, 2020 11:00 AM AMBULATORY - [place]IC[place] [facility] Dec 30, 2020 10:15 AM AM[place]ULATORY - NONE [place] [facility] Active, Pending, and Scheduled Orders This section includes a listing of several types of active, pending, and scheduled orders, including clinic medications orders, diagnostic test orders, procedure orders and consult orders; where the start date of the order is 45 days before the date of the Encounter or 45 days after the date of the Encounter. The data comes from all [place] treatment facilities. Test Date/Time Test Type Test Details Facility Name Jul 29, 2020 12:57 PM Consult Order COMMUNITY CARE-COLONOSCOPY [place] [facility] SCREENING Cons Card Dealer's Choice Surgical Procedures: All associated to the encounter This section includes all Surgical Procedures and Surgical Procedure Notes associated to the Encounter.Surgical Procedures This section includes all Surgical Procedures associated to the Encounter.Surgical Procedure Date/Time Procedure Procedure Type Procedure Provider Source Qualifiers Jul 22, 2020 ELECTROCARDIOGRAM ELECTROCARDIOGRAM [place], [place] WHITE 09:00 AM COMPLETE COMPLETE [place] [facility] Surgical Notes There are no notes associated with this procedure. Vital Signs: All taken on the encounter date This section contains inpatient and outpatient Vital Signs collected on the date of the Encounter. Date/Time Temperature Pulse Blood Respiratory SP02 Pain Height Weight Gildardo dy Source Pressure Rate Mass Index Jul 22 130/74 16 /min WHITE 2020 12:05 /min mm[Hg] RIVER PM T [facility] Jul 22, 258 lb 37 WHITE 2020 09:23 RIVER AM [facility] Social History: Smoking Status (Most current) and Tobacco Use (All prior to encounter date) This section includes the most current, and the historical, smoking and tobacco-related health factors from the [place] facility where the Encounter took place.Current Smoking Status This section includes the most current smoking, or tobacco-related health factor, from the [place] facility where the Encounter took place. Date/Time Current Smoking Status Comment Facility Apr 09, 2020 11:00 AM VA-TOBACCO FORMER USER I [place] [facility] Tobacco Use History This section includes a history of the smoking, or tobacco-related health factors, that were collected on or before the date of the Encounter. The data comes from the [place] facility where the Encounter took place. Date/Time Smoking Status/Tobacco Use Comment [place] Apr 09, 2020 11:00 AM VA-TOBACCO QUIT 15 YRS OR MORE [place] [facility] Jan 14, 2018 03:08 PM VA-TOBACCO FORMER USER I [place] [facility] Jan 14, 2018 03:08 PM VA-TOBACCO QUIT 15 YRS OR MORE [place] [facility] Mar 16, 2017 09:08 AM QUIT TOBACCO USE > 7 YEARS AGO [place] [facility] quit 1983Mar 04, 2016 10:28 AM QUIT TOBACCO USE > [facility]ARS A[facility] Quit 1983Mar 10, 2005 10:47 AM HISTORY OF SMOKING [place] [facility] 1983Mar 31, 2004 09:26 AM HISTORY OF SMOKING [place] [facility] Mar 31, 2004 09:26 AM QUIT TOBACCO USE > 7 YEARS AGO [facility] Aug 22, 2001 01:30 PM HISTORY OF SMOKING [place] [facility] Advance Directives: All historical and current Section Date Range: From patient's date of to the date document was created. This section includes ALL of a patient's completed or amended [place] Advance and Rescinded Directives. The entries below indicate that a directive exists for the patient, but an actual copy is not included with this document. The data comes from all [place] facilities. Date Advance Directives Provider Source Feb 23, 2014 ADVANCE DIRECTIVE EYAL MONTILLA [place] [facility] Encounter Notes: All associated encounter notes This section contains the clinical notes associated to the Encounter. Date/Time Encounter Note(s) Provider Source Jul 22, 2020 08:05 AM CARDIOLOGY CONSULT: MARTHA JONES ANGELITO PRITCHARDT LOCAL TITLE: CONSULT: NETWORK TECHNICAL ANALYST Cardiology [facility] STANDARD TITLE: CARDIOLOGY CONSULT DATE OF NOTE: JUL 22, 2020@08:05 ENTRY DATE: JUL 22, 2020@08:05:54 AUTHOR: MARTHA JONES EXP COSIGNER: URGENCY: STATUS: COMPLETED CONSULT: NETWORK TECHNICAL ANALYST Cardiology Has ADDENDA KAREN--see below re ROBIN, lives alone, has no transportation if he can't drive. Reason for Consultation: Mr. Little is a 75 y.o. referred to Cardiology by Evangelista Parrish seen 06/26/20 for transient episode of left eye vision loss, not accompanied with headache, chest pain, pressure, palpitations, SOB (see [facility] medical records note on 06/27/20 for highli ghts of workup, scanned doc also should be in [place]) Outside hospital recommended ROBIN to evaluate for cardiac source of embolus, prompting this referral- ?any other wor kup necessary at this time Past Medical History # ?TIA # Bipolar vs. depression # Dyslipidemia # CKD Stage 3 # Prostate cancer # JAY JAY # GERD Subjective: Mr Little is a very pleasant 75 yo [employer] referred for cardilogy evaluation following an epis ode of amaurosis fugax/TIA last month. He was in his usual state of health at [facility], watching television, when one eye went completely black. He thought something had floated across it, so went into the BR to try and wipe the eye, to no avai l. He then noticed it felt like a shade came down fpc, lasted a few minutes then resolved. Denies any accompanying headache, fever, dizzine ss, or weakness/numbness No chest pain or palpitation s at the time. He went and Googled sudden loss of vision which prompted him to proceed to local E R which he did where he underwent thorough rvaluation including labs, ek g ,ct and mri, all negative. [facility] spoke with Neurology at [facility] who recommende d 21 days do clopidogrel and asa, then just asa; an ambulatory monitor (see lorraine mckeon for results); neuro f/u; start lisinopril; and ROBIN Mr Little was been without further neuro sx sinc e the isolated incident ROS General: no fevers, night sweats, wt loss or gai n HEENT: no recurrent sx per HPI Pulm: has noticed worsening DELONG for 6-8 months. no orthopnea/pnd/edema. No wheezing seems to correlate when he stopped his symbicort Cardiac: no palps. No chest pressure. Describes periodoc sensation of electric shock across his upper chest into his left neck , lasts < 1 sec. Rare occurence, thinks it's when he turns his neck. no radiation GI: having diarrhea now, use d to be constipated. no blood in stool. said he is trying to eat healthy and having more fiber, b ut did satop his metamucil neg Neuo: as per hpi Psych: isolated, depression but good today Allergies:ALLERGIES/ADVERSE REACTIONS - NONE FOU ND Medications: Active and Recently Outpatient Medicatio ns (excluding Supplies): Active Outpatient Medications Status 1) BUDESONIDE 80/FORMOTER 4.5MCG 120D INH INHA LE 2 PUFFS ACTIVE BY MOUTH TWICE A DAY FOR BREATHING/RINSE MOUTH WITH WATER,SWISH AROUND AND SPIT OUT AFTER USI NG INHALER 2) CLOPIDOGREL BISULFATE 75MG TAB TAKE ONE TAB LET BY just completed MOUTH EVERY DAY TO PREVENT BLOOD CLOTS [...] TAB 250MCG BY MOUTH ACTIVE EVERY DAY Social Hx ; lives a lone. Covid has been difficult due to isolation. two dtrs, estranged from . His dog 10 yrs ago, still misses her. Used to get out and walk with her every day. 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 Family:father had leaky heart valve; age 8 3 smoer/drinker. mom of liver failure, from methotre xate and etoh. 1 bro of alzheimers; 1 brother Chivo alive, well and healthy. No other fh of CAD besides dad Tobacco:quit in the 80s cold turkey EtOH:quit in the 80s cold turkey, too Objective Vitals: BP: 130/74 , HR: 76 R 16 , Wt: 258 lbs Gen'l: very pleasant older , alert and o riented in NAD. Mood is appropriate and upbeat today Neck:supple, carotids w/bruits Lungs:clear bilaterally Cardiac:regular S1 S2 normal Gr i/vi sukumar noted o annmarie LSB no JVD Abd:obese, soft, nontender Ext:no clubbing, edema, or cyanosis Neuro: cn II-XII grossly intact Psych: normal demeanor, good eye contact. approp riate affect Lab Values NA: 139 (05/02/20 13:53) K: 4.3 (05/02/20 13:53) CL: 104 (05/02/20 13:53) CO2: 28 (05/02/20 13:53) BUN: 19 (05/02/20 13:53) CREATI: 1.22 (05/02/20 13:53) EGFR: 58 (05/02/20 13:53) GLU: 93 (05/02/20 13:53) HGB A1C: 5.6 (05/02/20 13:53) AST: 30 (05/02/20 13:53) ALT: 27 (05/02/20 13:53) CHOL: 194 (05/02/20 13:53) HDL: 39 (05/02/20 13:53) LDL: 122 (05/02/20 13:53) TRI (05/02/20 13:53) TSH: 2.02 (05/02/20 13:52) HCT: 44.6 (05/02/20 13:53) HGB: 14.5 (05/02/20 13:53) Imaging/Impression, r/o acute CVA: -Brain MRI: Unremarkable MRI of brain -Brain MRA: WNL anatomic variation (of [place] of [place]) -MRA neck: No evidence of dissection, occlusion or significant stenosis -Chest XR: no acute pulm findings -Head CT: No acute intracranial process -Bedside US done: no evidence of retinal detachm ent EKG: HR 78, sinus, RBBB, no acute ST ischemic fi ndings (qTC 487) Labs reviewed and unremarkable. Troponin negativ e. CRP 0.45H. ESR 27 (nl) 14 day ambulatory monitor: n o afib, sinus rhythm. triggered events corresponded to sinus rhythm ECG today:nsr rbbb lafb (not new) Assessment 1. TIA/amaurosis fugax: classic sx. On 21 day c ourse of clopidogrel and asa (per [facility] neuro) now on aspirin only. --no recurrence of sx --ambulatory monitor essentially benign, no sig arrhythmias, no afib--I reassured him of these benign results --neuro requests ROBIN; he has f/u with them also 2. HTN: reasonable. Bears close followup 3. Dyspnea on exertion:a bit difficult to tease this out, but it appears to have started over the past 6-8 mo nths, corresponds to when he self dc'd his symbicort inhaler which he has since r esumed. He does feel it is improving somewhat since he resumed th e inhaler, though not back to norm al --no orthpnea/pnd or edema w/wt gain to indicate hrt failure though anginal equivalent remains in the di fferential. Mr Little is going to request a copy of the stress test he had done at [facility] ~ 10 yrs ago . 4. 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 Depression: seeing psych. specifically asked me to read his eval to help get a better picture of me Upbeat today. Might get a dog again! 6. Diarrhea: problematic. ? from increas e sertraline dose. Also, not using his metamucil because [facility] g ray powder instead of orange flavored. He will get some at local pharmacy, will cc pcp if [facility] can get him the flavored variety. We discussed metamucil is for both constipation as well as diarrhea due to its bulking agent. 7. JAY JAY: unable to tolerate CPAP Plan 1. Medications reviewed/reconciled--consider xin nobles 2. Will schedule ROBIN--we dis cussed the procedure, including sedation. IF HE CANNOT DRIVE HIMSELF HOME, WILL NEED TRA NSPORTATION ARRANGED.--cc to our nurse gearcase assembler 3. Neuro f/u as planned 4. continue the symbicort. I want to re-evaluat e his symptoms on this. if persistent significant dyspnea, will obtain a nu c ett to r/o ischemia --Mr Little is getting me a copy of prior testin g. 5. advance lisinopril as needed for blood pressu re control. 6. encouraged him to get mov ing/walking. An older dog to adopt sounds like just the ticket! I'll see him back in 1 month, sooner prn Greater than 50% of this session was dedicated t o counseling and coordination of care. Time spent with patient: 6 0 minutes. /chris/ MARTHA JONES Nurse Practitioner Signed: 07/22/2020 15:12 Receipt Acknowledged By: * AWAITING SIGNATURE * EMILY LIU 07/22/2020 ADDENDUM STATUS: COMPLETED mr little got records faxed to me later today saw cardiology dr gilman in 2007 for palitatio ns and one 4 beat run of vt he underwent an echcoardiogr am which was normal, as well as a nuclear ett which showed only some PACs, no ischemia, read as neg ative Per cardiolgy, they felt he had severe O SA. otherwise, no other cardiac issues or followup until his recent event. notes to be scanned into record /es/ MARTHA OJNES Nurse Practitioner Signed: 07/22/2020 15:42 07/25/2020 ADDENDUM STATUS: COMPLETED Phone call with . He is reluctant to proceed with scheduling the ROBIN - he would like to have a video c onference (VVC) with a veneer stock layer first. Will see if we can arrange. /es/ Emily Liu RN Latex Caster - Cardiology Signed: 07/25/2020 13:50 Receipt Acknowledged By: * AWAITING SIGNATURE * TOSHIA PARRISH * AWAITING SIGNATURE * MANNY ARTEAGA
--- OUTSIDE RECORDS SUMMARY | 2020-12-05 21:37 | XMS_ITS | Encounter Summary ---
:1945 Author Organization Department of [facility] rs Address [address] [place] [id number] Care Team Providers Name Role Phone CHANDLER, [...] Number Dhillon ANTHEM PREFERRED BASIC May 17 [id number] [phone] OSCAR LITTLE P ATIENT BCBS OF [place] PROVIDER SELF 2002 [id number] [phone] AN (FEDERAL) ORGANIZAT ION (PPO) BCBS OF [place] PREFERRED BASIC May 17 [id number] [phone] OSCAR MACEDO PATIENT FEDERAL PROVIDER SELF 2002 22 4 AN ORGANIZAT ION (PPO) CAREMARK-F PRESCRIPT BCBS May 17, [id number] [phone] OSCAR LI PATIENT EP BCBS ION FEP 2010 [id number] AN PLAN MEDICARE MEDICARE PART Jan 15, PART A [id number] OSCAR LITTLE PATIENT (WNR) (M) A 2008 [id number] 2 AN Selected Encounter This section includes the information [facility] record at [facility] for [facility]. Date/Time Encounter Type Encounter Description Reason Provider Source Apr 09, 2020 11:00 Outpatient Encounter GERIPACT AM IHE Encounter Template Text not used by [facility] Plan of Treatment: Future Appointments (+ 6 months) and Future Tests (+/- 45 days) The Plan of Treatment section includes future care activities for the patient from all [place] treatment facilities. This section includes future appointments and future orders which are active, pending or scheduled.Future Appointments This section includes appointments that were scheduled to occur 6 months from the date of the Encounter, up to a maximum of 20 appointments. The data comes from all [facility]. Appointment Date/Time Appointment Type Appointment Facili ty Name May 02, 2020 01:30 PM AMBULATORY - NONE [facility] [place] Jul 04, 2020 02:00 PM [place]ONE [place] [facility] Jul 17, 2020 11:15 AM [place] [facility] Jul 19, 2020 01:00 PM [place] [facility] Jul 19, 2020 02:00 PM [place] [facility] Jul 22, 2020 09:00 AM AMBULATORY - [place]ICINE [place] [facility] Jul 29, 2020 11:00 AM AMBULATORY - NONE [place] [facility] Jul 31, 2020 11:00 AM AM[place]UL[place] [facility] Aug 13, 2020 10:00 AM AMBUL[place]ORY [place]IC[place] [facility] Aug 21, 2020 10:00 AM AMBULATORY - [place]ICINE [place] [facility] Aug 21, 2020 11:00 AM AM[place]UL[place] [facility] October 02, 2020 10:15 AM AMBUL[place] [facility] Active, Pending, and Scheduled [...] the Encounter. The data comes from all [place] treatment facilities. 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 Radiology Reports and Pathology Reports are provided separately, in subsequent sections.Lab Results This section contains the Chemistry/Hematology Results that were resulted 30 days before or 30 days after the date of the Encounter. Date/Time Source Result Type Result - Unit Interpretation Reference Range Comment May 02, 2020 [facility] LIPOPROTEIN Specimen Type: PLASMA 01:53 PM [facility] CHOLESTEROL FRACT. Comment: Tests performed on [facility] (405) PANEL Ordering Provider: MANNY ARTEAGA Report Released Date/Time: Sep 12, 2019 11:58 AM Reporting Lab: [facility] [address] [facility] [address] Performing Lab: [facility] [address] [facility] [address] CHOLESTEROL 194 mg/dL 0-199 TRIGLYCERIDE 166 mg/dL H 0-149 HDL CHOLESTEROL 39 mg/dL L >40 LDL CHOLESTEROL (CALC) 122 mg/dl 0-129 May 02, [address] [facility] GLYCOHEMOGLOBIN (A1C Specimen Type: BLOOD 01:53 PM [facility] ONLY) Comment: Tests performed on [facility] (405) Ordering Provider: MANNY ARTEAGA Report Released Date/Time: Sep 12, 2019 11:58 AM Reporting Lab: [facility] [address] [facility] [address] Performing Lab: [facility] [address] [facility] [address] HEMOGLOBIN A1C 5.6 % 4.0-5.6 May 02, 2020 [facility] GLU,BUN,CREAT,LYTES,CA Specimen Type: PLASMA 01:53 PM [facility] Comment: Tests performed on [facility] (405) Ordering Provider: MANNY ARTEAGA Report Released Date/Time: Sep 12, 2019 11:58 AM Reporting Lab: [facility] [address] [facility] [address] Performing Lab: [facility] [address] [facility] [address] UREA NITROGEN 19 mg/dL 7-25 SODIUM 139 mmol/L 135-145 POTASSIUM 4.3 mmol/L 3.5-5.0 CHLORIDE 104 mmol/L 100-110 CARBON DIOXIDE 28 mmol/L 20-30 ANION GAP 7 mmol/L 4-16 GLUCOSE 93 mg/dL 65-100 CREATININE 1.22 mg/dl 0.5-1.5 CALCIUM 8.9 mg/dL 8.5-10.5 eGFR 58 mL/min L >60 May 02, 2020 01:[address] [facility] CBC PROFILE Specimen Type: BLOOD PM [facility] No comment enter ed. Ordering Provider: MANNY ARTEAGA Report Released Date/Time: Sep 12, 2019 11:58 AM Reporting Lab: [facility] [address] [facility] [address] Performing Lab: [facility] [address] [facility] [address] WBC 5.9 10*3/uL 4.5-11.0 RBC 5.04 10*6/uL [...] 0.00 10*3/uL 0-0 May 02, 2020 01:53 [facility] LIVER PROFILE Specimen Type: PLASMA PM [facility] Comment: Tests performed on [employer] (405) Ordering Provider: MANNY ARTEAGA Report Released Date/Time: Sep 12, 2019 11:58 AM Reporting Lab: [place] [facility] [address] [facility] [address] Performing Lab: [place] [facility] [address] [facility] [address] PROTEIN, TOTAL 7.1 g/dL 6.0-8.5 ALBUMIN 3.9 g/dL 3.2-5.0 BILIRUBIN, TOTAL 0.7 mg/dL 0.2-1.2 ALKALINE PHOSPHATASE 82 U/L 40-150 ALT(SGPT) 27 U/L 7-52 AST(SGOT) 30 U/L 5-34 FIB-4 SCORE 1.82 INDEX <2.67 May 02, 2020 01:52 PM [place] [facility] TSH Specimen Type: SERUM Comment: Added by [email or web address] on May 02, 2020@20:09 Tests performed on [facility] (405) Ordering Provider: TOSHIA OH Report Released Date/Time: Apr 10, 2020 12:14 PM Reporting Lab: [place] [facility] [address] [facility] [address] Performing Lab: [place] [facility] [address] [facility] [address] TSH 2.02 uIU/mL 0.35-5.00 May 02, 2020 01:52 PM [place] [facility] VITAMIN B-12 Specimen Type: SERUM Comment: Added by Santos on May 02, 2020@20:09 Tests performed on [facility] (405) Ordering Provider: TOSHIA OH Report Released Date/Time: Apr 10, 2020 12:14 PM Reporting Lab: [place] [facility] [address] [facility] [address] Performing Lab: [place] [facility] [address] [facility] [address] VITAMIN B-12 810 pg/mL 200-900 May 02, 2020 01:52 [place] PSA (STRAW HAT BRIM RAISER OPERATOR) Specimen Type: SERUM PM [facility] Comment: Added by Santos on May 02, 2020@20:09 Tests performed on [facility] (405) Ordering Provider: TOSHIA OH Report Released Date/Time: Apr 10, 2020 12:14 PM Reporting Lab: [place] [facility] [address] [facility] [address] Performing Lab: [facility] [address] [facility] [phone] PSA (STRAW HAT BRIM RAISER OPERATOR) <0.10 ng/mL 0-4.0 Social History: Smoking Status (Most current) and Tobacco Use (All prior to encounter date) This section includes the most current, and the historical, smoking and tobacco-related health factors from the [place] facility where the Encounter took place.Current Smoking Status This section includes the most current smoking, or tobacco-related health factor, from the [place] facility where the Encounter took place. Date/Time Current Smoking Status Comment Facility Apr 09, 2020 11:00 AM [place]-TOBACCO FOR[place] [facility] Tobacco Use History This section includes a history of the smoking, or tobacco-related health factors, that were collected on or before the date of the Encounter. The data comes from the [place] facility where the Encounter took place. Date/Time Smoking Status/Tobacco Use Comment [facility] Apr 09, 2020 11:00 AM VA-TOBACCO QUIT 15 YRS OR MORE [place] [facility] Jan 14, 2018 03:08 PM VA-TOBACCO FORMER USER [place] [facility] Jan 14, 2018 03:08 PM VA-TOBACCO QUIT 15 YRS OR MORE [place] [facility] Mar 16, 2017 09:08 AM QUIT TOBACCO USE > 7 YEARS AGO [place] [facility] quit 1983Mar 04, 2016 10:28 AM QUIT TOBACCO USE > 7 YEARS AGO [place] [facility] Quit 1983Mar 10, 2005 10:47 AM H[place] OF SMOKING [place] [facility] 1983Mar 31, 2004 09:26 AM H[place]ORY OF SMOKING [place] [facility] Mar 31, 2004 09:26 AM QUIT TOBACCO USE > 7 YEARS AGO [place] [facility] Aug 22, 2001 01:30 PM HISTORY OF SMOKING [place] [facility] Advance Directives: All historical and current Section Date Range: From patient's date of to the date document was created. This section includes ALL of a patient's completed or amended [place] Advance and Rescinded Directives. The entries below indicate that a directive exists for the patient, but an actual copy is not included with this document. The data comes from all [place] facilities. Date Advance Directives Provider Source Feb 23, 2014 [facility]
--- OUTSIDE RECORDS SUMMARY | 2020-12-05 21:37 | XMS_ITS ---
:1945 Author Organization Department [facility] Address [address] [place] [id number] Care Team Providers Name Role Phone MANNY [...] Number Dhillon ANTHEM PREFERRED BASIC May 17 [id number] [phone] OSCAR LITTLE P ATIENT BCBS OF [place] PROVIDER SELF 2002 [id number] AN (FEDERAL) ORGANIZAT ION (PPO) BCBS OF [place] PREFERRED BASIC May 17 [id number] [phone] OSCAR MACEDO PATIENT FEDERAL PROVIDER SELF 2002 22 4 AN ORGANIZAT ION (PPO) CAREMARK-F PRESCRIPT BCBS May 17 [id number] [phone] ZEINAOSCAR PATIENT EP BCBS ION FEP 2010 0 [id number] AN PLAN MEDICARE MEDICARE PART Jan 15, PART A [id number] SIDNEY OSCAR PATIENT (WNR) (M) A 2008 [id number] 2 AN Selected Encounter This section includes the information on record at [place] for the Encounter. Date/Time Encounter Type Encounter Reason Provider Source Description Jul 17, 2020 OFFICE O/P EST MH INTGRTD CARE ICD-10-CM F32.9 DARRYL ARCE 11:15 AM MOD 30-39 MIN IND Major depressive E L disorder, single episode, unspecified with Provider Comments: Major Depressive Disorder, single Episode, unspecified IHE Encounter Template Text not used by VA Assessments - Encounter Diagnoses This section includes the primary and secondary diagnoses documented forthe Encounter. Date/Time Primary/Secondary Diagnosis Name Provider Source Diagnosis Jul 17, 2020 PRIMARY Major depressive LUCINA SIM R 12:49 PM disorder, single T [facility] episode, unspecified Jul 17, 2020 SECONDARY Alcohol LUCINA SIM 12:49 PM dependence, in T [facility] remission Jul 17, 2020 SECONDARY [facility]FP LUCINA SIM RIVER 12:49 PM (current) use of [facility] VAMETHODIST JENNIE EDMUNDSON aspirin Plan of Treatment: Future Appointments (+ 6 months) and Future Tests (+/- 45 days) The Plan of Treatment section includes future care activities for the patient from all [place] treatment facilities. This section includes future appointments and future orders which are active, pending or scheduled.Future Appointments This section includes appointments that were scheduled to occur 6 months from the date of the Encounter, up to a maximum of 20 appointments. The [facility] [place] [facility] Appointment Date/Time Appointment Type Appointment Facili ty Name Jul 19, 2020 01:00 PM [place] [facility] Jul 19, 2020 02:00 PM [place] [facility] Jul 22, 2020 09:00 AM [place] [facility] Jul 29, 2020 11:00 AM [place] [facility] Jul 31, 2020 11:00 AM AM[place] [facility] Aug 13, 2020 10:00 AM [place] [facility] Aug 21, 2020 10:00 AM [place] [facility] Aug 21, 2020 11:00 AM AMBUL[place]ORY [place] [facility] October 02, 2020 10:15 AM AMBULATORY - [place] [facility] October 09, 2020 01:00 PM [place] [facility] Oct 28, 2020 11:00 AM [place]ORY [place] [facility] Nov 04, 2020 01:00 PM AMBULATORY - PSYCHIATRY ADITYA PRITCHARD T [facility] Nov 12, 2020 08:30 AM AMBULATORY - NONE ADITYA ARREOLA [facility] Nov 19, 2020 02:00 PM AMBULATORY - REHAB MEDICINE ADITYA Hoskins [facility] Dec 05, 2020 08:00 AM AMBULATORY - NONE ADITYA ARREOLA [facility] Dec 11, 2020 12:00 PM AMBULATORY - PSYCHIATRY ADITYA PRITCHARD [facility] Dec 23, 2020 11:00 AM AMBULATORY - REHAB MEDICINE ADITYA HOUSE R [facility] Dec 30, 2020 10:15 AM AMBULATORY - NONE [facility] Active, Pending, and Scheduled Orders This section includes a listing of several types of active, pending, and scheduled orders, including clinic medications orders, diagnostic test orders, procedure orders and consult orders; where the start date of the order is 45 days before the date of the Encounter or 45 days after the date of the Encounter. The data comes from all [place] treatment facilities. Test Date/Time Test Type Test Details Facility Name Jul 29, 2020 12:57 PM Consult Order COMMUNITY CARE-COLONOSCOPY [facility] SCREENING Cons Mac Developer's Choice Social History: Smoking Status (Most current) and Tobacco Use (All prior to encounter date) This section includes the most current, and the historical, smoking and tobacco-related health factors from the [place] facility where the Encounter took place.Current Smoking Status This section includes the most current smoking, or tobacco-related health factor, from the [place] facility where the Encounter took place. Date/Time Current Smoking Status Comment Facility Apr 09, 2020 11:00 AM VA-TOBACCO FORMER USER Yue FERREIRA [facility] Tobacco Use History This section includes a history of the smoking, or tobacco-related health factors, that were collected on or before the date of the Encounter. The data comes from the [place] facility where the Encounter took place. Date/Time Smoking Status/Tobacco Use Comment [facility] Apr 09, 2020 11:00 AM VA-TOBACCO QUIT 15 YRS OR MORE [facility] Jan 14, 2018 03:08 PM VA-TOBACCO FORMER USER NORA CELIS [facility] Jan 14, 2018 03:08 PM VA-TOBACCO QUIT 15 YRS OR MORE [facility] Mar 16, 2017 09:08 AM QUIT TOBACCO USE > 7 YEARS [facility]GO [facility] 1983[facility] 04, 2016 10:28 AM QUIT TOBACCO USE > 7 YEARS AGO [facility] [place] [facility] Q[facility] 1983Mar 10, 2005 10:47 AM HISTORY OF SMOKING [place] [facility] 1983Mar 31, 2004 09:26 AM HISTORY OF SMOKING [place] [facility] Mar 31, 2004 09:26 AM QUIT TOBACCO USE > 7 YEARS AGO [place]A [place] VAM[facility] JENNIE EDMUNDSON Aug 22, 2001 01:30 PM HISTORY OF SMOKING [place] [facility] Advance Directives: All historical and current Section Date Range: From patient's date of to the date document was created. This section includes ALL of a patient's completed or amended VA Advance and Rescinded Directives. The entries below indicate that a directive exists for the patient, but an actual copy is not included with this document. The data comes from all [place] facilities. Date Advance Directives Provider Source Feb 23, 2014 ADVANCE DIRECTIVE EYAL MONTILLA AD[place] [facility] Encounter Notes: All associated encounter notes This section contains the clinical notes associated to the Encounter. Date/Time Encounter Note(s) Provider Source Jul 17, 2020 12:50 PM MENTAL HEALTH CONSULT: LUIS CARLOS ARCE NICKO MAXWELL Sivakumar LOCAL TITLE: Mental Health Consult Note VAMETHODIST JENNIE EDMUNDSON STANDARD TITLE: MENTAL HEALTH CONSULT DATE OF NOTE: JUL 17, 2020@12:50 ENTRY DATE: JUL 17, 2020@12:50:44 AUTHOR: LUIS CARLOS ARCE COSIGNER: URGENCY: STATUS: COMPLETED Please see [facility] note from today. /chris/ LUIS CARLOS ARCE Staff Physician Signed: 07/17/2020 12:51 Jul 17, 2020 11:30 AM MENTAL HEALTH OUTPATIENT NOTE: NATASHA ARCE [place] LOCAL TITLE: [facility] Note VAMETHODIST JENNIE EDMUNDSON STANDARD TITLE: MENTAL HEALTH OUTPATIENT NOTE DATE OF NOTE: JUL 17, 2020@11:30 ENTRY DATE: JUL 17, 2020@11:30:56 AUTHOR: LUIS CARLOS ARCE EXP COSIGNER: URGENCY: STATUS: COMPLETED [facility] PSYCHIATRIST NOTE VVC AT HOME [address] [place] [address] FOLLOW UP VISIT TIME SPENT WITH PATIENT (minutes): 30 min PCP: MANNY ARTEAGA 6 E *WH* CHIEF COMPLAINT: Because of COvtereso I'm alone completely. Depression vs. BAD last seen [facility] 2019 BRIEF SUMMARY of THERAPIST ASSESSMENT: declined therapy HISTORY of PRESENT ILLNESS: 75 yo with h/o depre ssion vs. Bipolar disorder requested to be seen due to worsening depression. PCP worried because he seemed to be cosnidering suicide. He notes that he is very isolated in t he context of [place], has no visitors. He also recently had a stroke, per hi s report. PCP just increased his sertraline last week, and he is not sure about the effect. He has some diarrhe a, otherwise tolerable. He notes that he typed in a google search re: when is i t time to end it all? He was not searching suicide methods, and he was given encouragement to impro ve his life by others on the site. He states he is not thinking of suicide n ow, and denies seriously considering it then, either. He does not want t o . I love my life. SLeeps 12 hours/night soundly . Uses CPAP. Appetite is good, food tastes good. Interested in i mproving his diet, finding ways to get out of house once COVID fear diminishes. He feels he has had some mood swings, with mood changes that occur within one day - low in the AM, high at night. He also enj oys trading stocks, and knows this is risk-taking but notes he is able to make money, and d oes not have trouble with his judgement. He denies other recent high risk behaviors, and notes that alcohol was a factor in his extremes earlier in his life . Mood is still variable - was down yesterday, but feels good today. He loses his train of thought quickly, notes ST memory is poor. Second COVID vaccine is due on August 01. Looks forward to getting out more. RELEVANT CURRENT STRESSORS: Housing: Lives alone in [place] Employment: Worked for [employer] Income: Stable Relationships/social support: Last relationship was in 1983. He has 2 adult daughters, and sees one jenni olivarez. The other is estranged. Brother visited QO week prior to COVID. FAMILY PSYCHIATRIC HISTORY: brother of Alzheimer's SIGNIFICANT PAST PSYCHIATRIC HISTORY: Suicide attempts: states none, but then states h e cut his wrists once in the 80's - took a serrated knife and scratched his a rm, with no bleeding; also threatened to jump off 4-sto da spivey, had to go before a trial judge, who dismissed it (intoxicated) Hospitalizations: none Med trials: sertraline, prozac - felt my brain was going to blow out, citalopram, bupropion, lamictal, klonopin, VPA, lithium caused unsteady gait Diagnoses: MDD vs BAD SIGNIFICANT SUBSTANCE USE/ABUSE HISTORY: Alcohol: AUD in remission HISTORY: [place] [employer] Service # Entered S eparated Discharge [employer] [id number] JAN 04, 1964 J UN 1965 GENERAL COMBAT SERVICE - NO DS - Disabilities Eligibility: NSC VERIFIED MEDICAL HISTORY: Benign essential hypertension (SCT [id number] t monocular blindness (SCT 71274889) Gastroesophageal reflux disease (SCT 235Hallucin ations (SCT 3541511) Umbilical hernia (SCT 575918 007) Lichen simplex chronicus (SCT 48886778) Tinea pedis (SCT 5999545) Obstruct denzel sleep apnea of adult (SCT 4292230429127) Mood disorder ([facility] [id number]) Chronic kidney disease stage 3 (SCT 218053785) Keratoderma ([facility] 444897873) Allergic conjunctivitis (SCT 510931774) 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) Prostate cancer (SCT 854545270) Asthma ([facility] 289058009) Low back pain (SCT 424115289) History of polyp of colon (SCT 578723407Frvgqkz (SCT 983497445) Gastroesophageal reflux disease (SCT 235Anxiety disorder ([facility] 153661211) Bipolar disorder ([facility] 10259037) Paranoia ([facility] [id number]) Hyperlipidemia ([facility] 11943623) ALLERGIES: Patient has answered NKA MEDICATIONS: Active Outpatient Medications (excluding Supplie s): Active [...] MOUTH ACTIVE EVERY DAY 10 Total Medications MEDICATION RECONCILIATION: REVIEWED MEDS WITH VITALS: 262.4 lb [119.3 kg] (07/04/2020 13:51) DATE/TIME TEMP PULSE RESP B P PAIN WEIGHT 07/04/20 @ 1351 97.2 79 18 1 0 262.4 MENTAL STATUS EXAM: *Appearance: intact grooming and hygiene, dresse d appropriately *Motor: no restlessness or agitation -Manner: cooperative and pleasant *Speech: spontaneous, good amount, normal rate, volume and intonation, not pressured *Language: no word-finding problems, no neologi sms or unusual word usage -Affect: reactive, mood-congruent *Mood: good today *Thought process: organized and goal-directed, normal rate *Associations: intact and linear *Thought content: no delusi ons, no bizarre content, denies SI or desire to *Perception: intact, with no hallucinations *Insight/Judgment: fair/fair *Memory: good historian, able to provide detail s of recent and remote events *Attention/concentration: intact WILLIAMS SUICIDE SCREEN: 1. Wish to be - no 2. Suicidal thoughts - no 3. Suicidal thoughts with method (without speci fic plan or intent) 4. Suicidal intent (without specific plan) 5. Suicidal intent with specific plan 6. Suicide behavior question - yes - many yeasr ago while intoxicated OVERALL IMPRESSION/ASSESSMENT: 75 yo with complex psychiatric history i s seen due to recent problems with depression. Of note, yanna santos does not give a clear h/o manic episodes, but does endorse frequent mood swings. He is adamant tovera alegre that he has not given any serious consideration to suicide in many years, and even then, it was while intoxicated. Level of acuity: Routine Safety Assessment: low risk Diagnoses (formerly Ayr I, II, III): MDD vs. Bi polar NOS Psychosocial factors (formerly Ayr IV): isolati on Functional Status (formerly Ayr V, severity/dis ability): impaired TREATMENT PLAN: Medications: He wished to continue with the high er dose of sertraline 150 mg. Will meet again soon to review GI side effects. Returning to [facility] is also reasonable. Psychosocial interventions: Declines therapy Follow-up: Return to [facility] 2 weeks [facility] Crisis Line: (press opt ion #1) [facility]: (24 hour access to clinician) [facility]: [phone] ext [phone] available Wednesday through Wednesday 8 am to 4 pm /chris/ LUIS CARLOS ARCE Staff Physician Signed: 07/17/2020 12:49
--- OUTSIDE RECORDS SUMMARY | 2020-12-05 21:37 | XMS_ITS | Encounter Summary ---
:1945 Author Organization Department [facility] Address [address] [place] [address] Care Team Providers Name Role Phone MANNY [...] Number Dhillon ANTHEM PREFERRED BASIC May 17 [id number] [phone] OSCAR LITTLE P ATIENT [place]BS OF [place] PROVIDER SELF 2002 [id number] AN (FEDERAL) ORGANIZAT ION (PPO) [place] PREFERRED BASIC May 17 [id number] [phone] OSCAR MACEDO PATIENT FEDERAL PROVIDER SELF 2002 22 4 AN ORGANIZAT ION (PPO) [place]-F PRESCRIPT BCBS May 17, [id number] [phone] FR ZEINAOSCAR PATIENT EP BCBS ION FEP 2010 0 [id number] 331 AN PLAN MEDICARE MEDICARE PART Jan 15, PART A [id number] SIDNEY OSCAR PATIENT (WNR) (M) A 2008 [id number] 2 AN Selected Encounter This section includes the information on record [place] for the Encounter. Date/Time Encounter Type Encounter Reason Provider Source Description Jul 05, 2020 CANE PROSTHETICS/ORTHO ICD-10-CM R26.89 HARRIET,K URT 08:05 AM ADJUST/FIXED TICS Other WITH TIP abnormalities of gait and mobility with Provider Comments: Other Abnormalities of Gait and Mobility IH Encounter Template Text not used by VA Assessments - Encounter Diagnoses This section includes the primary and secondary diagnoses documented forthe Encounter. Date/Time Primary/Secondary Diagnosis Name Provider Source Diagnosis Jul 17, 2020 PRIMARY Other abnormalities LEENASTEPHANIE ADITYA Gato [place]RIST 08:14 AM of gait and [facility] mobility Plan of Treatment: Future Appointments (+ 6 months) and Future Tests (+/- 45 days) The Plan of Treatment section includes future care activities for the patient from all [place] treatment facilities. This section includes future appointments and future orders which are active, pending or scheduled.Future Appointments This section includes appointments that were scheduled to occur 6 months from the date of the Encounter, up to a maximum of 20 appointments. The data comes from all [facility]. Appointment Date/Time Appointment Type Appointment Facili ty Name Jul 17, 2020 11:15 AM AM[place]ATORY [place] [facility] Jul 19, 2020 01:00 PM [place] [facility] Jul 19, 2020 02:00 PM [place] [facility] Jul 22, 2020 09:00 AM [place] [facility] Jul 29, 2020 11:00 AM [place]ORY [place] [facility] Jul 31, 2020 11:00 AM AM[place]ULAT[place] [facility] Aug 13, 2020 10:00 AM AM[place]UL[place]ORY [place]IC[place] [facility] Aug 21, 2020 10:00 AM [place]IC[place] [facility] Aug 21, 2020 11:00 AM AM[place]ULATORY [place] [facility] October 02, 2020 10:15 AM AMBULATORY - [place]IAT[place] [facility] October 09, 2020 01:00 PM AM[place]UL[place]ORY [place]IC[place] [facility] Oct 28, 2020 11:00 AM [place]UL[place]ORY [place] NONE [place] [facility] Nov 04, 2020 01:00 PM AMBULATORY [place] [facility] Nov 12, 2020 08:30 AM AM[place]ULATORY [place] N[place] [facility] Nov 19, 2020 02:00 PM AM[place]ULATORY [place] [facility] Dec 05, 2020 08:00 AM AMBULATORY - NONE ADITYA ARREOLA T [facility] Dec 11, 2020 12:00 PM AMBULATORY - PSYCHIATRY ADITYA PRITCHARD T [facility] Dec 23, 2020 11:00 AM AMBULATORY - REHAB MEDICINE ADITYA Hoskins [facility] Dec 30, 2020 10:15 AM AMBULATORY - NONE MENTOR MAXWELL [facility] Active, Pending, and Scheduled Orders This section includes a listing of several types of active, pending, and scheduled orders, including clinic medications orders, diagnostic test orders, procedure orders and consult orders; where the start date of the order is 45 days before the date of the Encounter or 45 days after the date of the Encounter. The data comes from all [place] treatment facilities. Test Date/Time Test Type Test Details Facility Name Jul 29, 2020 12:57 PM Consult Order COMMUNITY CARE-COLONOSCOPY [facility] SCREENING Cons Assurance Analyst's Choice Surgical Procedures: All associated to the encounter This section includes all Surgical Procedures and Surgical Procedure Notes associated to the Encounter.Surgical Procedures This section includes all Surgical Procedures associated to the Encounter.Surgical Procedure Date/Time Procedure Procedure Type Procedure Provider Source Qualifiers Jul 05, 2020 LIZETTEMarybel OLSEN NU-NEW EQUIPMENT ARMBRUSTJENAE 08:05 AM ADJUST/FIXED ADJUST/FIXED [facility] WITH TIP WITH TIP Surgical Notes There are no notes associated with this procedure. Social History: Smoking Status (Most current) and Tobacco Use (All prior to encounter date) This section includes the most current, and the historical, smoking and tobacco-related health factors from the [place] facility where the Encounter took place.Current Smoking Status This section includes the most current smoking, or tobacco-related health factor, from the [place] facility where the Encounter took place. Date/Time Current Smoking Status Comment Facility Apr 09, 2020 11:00 AM VA-TOBACCO FORMER USER [facility] Tobacco Use History This section includes a history of the smoking, or tobacco-related health factors, that were collected on or before the date of the Encounter. The data comes from the [place] facility where the Encounter took place. Date/Time Smoking Status/Tobacco Use Comment [facility] Apr 09, 2020 11:00 AM [place]-TOBACCO QUIT 15 YRS OR MORE ADITYA ARREOLA [facility] Jan 14, 2018 03:08 PM VA-TOBACCO FORMER USER [facility] Jan 14, 2018 03:08 PM VA-TOBACCO QUIT 15 YRS OR MORE [place]ITYA [place]REOLA [place] [facility] Mar 16, 2017 09:08 AM QUIT TOBACCO USE > 7 YEARS AGO ADITYA PRITCHARDT [facility] quit 1983Mar 04, 2016 10:28 AM QUIT TOBACCO USE > 7 YEARS AGO ADITYA PRITCHARDT [facility] Quit 1983Mar 10, 2005 10:47 AM HISTORY OF SMOKING [place]ITYA [place]O [facility] [facility] 1983Mar 31, 2004 09:26 AM H[place]ORY OF SMOKING [place] [facility] Mar 31, 2004 09:26 AM QUIT TOBACCO USE > 7 YEARS AGO ADITYA ARREOLA [facility] [facility] Aug 22, 2001 01:30 PM HISTORY OF SMOKING ADITYA POLO T [facility] Advance Directives: All historical and current Section Date Range: From patient's date of to the date document was created. This section includes ALL of a patient's completed or amended VA Advance and Rescinded Directives. The entries below indicate that a directive exists for the patient, but an actual copy is not included with this document. The data comes from all [place] facilities. Date Advance Directives Provider Source Feb 23, 2014 ADVANCE DIRECTIVE EYAL MONTILLA [facility]
--- OUTSIDE RECORDS SUMMARY | 2020-12-05 21:37 | XMS_ITS ---
:1945 Author Organization Department [facility] Address [address] [place] [id number] Care Team Providers Name Role Phone MANNY [...] Number Dhillon ANTHEM PREFERRED BASIC May 17 [id number] [phone] OSACR LITTLE P ATIENT [place] PROVIDER SELF 2002 [id number] AN (FEDERAL) ORGANIZAT ION (PPO) [place] PREFERRED BASIC May 17 [id number] OSCAR MACEDO PATIENT FEDERAL PROVIDER SELF 2002 22 4 AN ORGANIZAT ION (PPO) [place]ARK-F PRESCRIPT BCBS May 17 [id number] [phone] OSCAR PASTRANA PATIENT EP BCBS ION FEP [phone] AN PLAN MEDICARE MEDICARE PART Jan 15, PART A [id number] OSCAR LITTLE PATIENT (WNR) (M) A 2008 [id number] 2 AN Selected Encounter This section includes the information on record at [place] for the Encounter. Date/Time Encounter Type Encounter Reason Provider Source Description Jul 04, 2020 OFFICE O/P EST GERIPACT ICD-10-CM JENNIE ARTEAGA 02:00 PM MOD 30-39 MIN H53.122 DGET K Transient visual loss, left eye with Provider Comments: Transient Visual Loss, left Eye IHE Encounter Template Text not used by [facility] Assessments - Encounter Diagnoses This section includes the primary and secondary diagnoses documented forthe Encounter. Date/Time Primary/Secondary Diagnosis Name Provider Source Diagnosis Jul 04, 2020 PRIMARY Transient visual [place] [place] 05:00 PM loss, left eye [facility] Jul 04, 2020 SECONDARY Body mass index [place] 05:00 PM [BMI] 37.0-37.9, [facility] adult Jul 04, 2020 SECONDARY Constipation, BLACK,[place] 05:00 PM unspecified [facility] Jul 04, 2020 SECONDARY Essential (primary) [place] 05:00 PM hypertension [facility] Jul 04, 2020 SECONDARY Gastro-esophageal [facility] 05:00 PM reflux disease [facility] without esophagitis Jul 04, 2020 SECONDARY Hyperlipidemia, BLACK,[place] 05:00 PM unspecified [facility] Jul 04, 2020 SECONDARY Obesity, BLACK,[place] 05:00 PM unspecified [facility] Jul 04, 2020 SECONDARY Unspecified asthma, BLACK,[place]IA [place] 05:00 PM uncomplicated [facility] Jul 04, 2020 SECONDARY Unspecified mood [place] 05:00 PM [affective] [facility] disorder Jul 04, 2020 SECONDARY Unsteadiness on [place] 05:00 PM feet [facility] Plan of Treatment: Future Appointments (+ 6 months) and Future Tests (+/- 45 days) The Plan of Treatment section includes future care activities for the patient from all VA treatment facilities. This section includes future appointments and future orders which are active, pending or scheduled.Future Appointments This section includes appointments that were scheduled to occur 6 months from the date of the Encounter, up to a maximum of 20 appointments. The [facility] [place] [facility] Appointment Date/Time Appointment Type Appointment Facili ty Name Jul 17, 2020 11:15 AM AMBULATORY [facility] [place] [place] [facility] Jul 19, 2020 01:00 PM [facility] [place] [facility] Jul 19, 2020 02:00 PM [facility] [place] [facility] Jul 22, 2020 09:00 AM [facility] [place] [facility] Jul 29, 2020 11:00 AM [facility] [place] [facility] [facility] Jul 31, 2020 11:00 AM AM[facility]UL[facility] [place] [facility] Aug 13, 2020 10:00 AM [facility] [place]IC[place] [facility] Aug 21, 2020 10:00 AM [facility] [place] [facility] Aug 21, 2020 11:00 AM AM[facility]UL[facility] [place] [facility] October 02, 2020 10:15 AM AMBULAT[facility]AT[facility] [place] [facility] October 09, 2020 01:00 PM [facility] [place] [facility] Oct 28, 2020 11:00 AM AM[facility]ORY [place]ONE [place] [facility] Nov 04, 2020 01:00 PM AM[facility]UL[facility] [place] [facility] Nov 12, 2020 08:30 AM AM[facility]ORY [place] NONE [place] [facility] Nov 19, 2020 02:00 PM AM[facility] [place] [facility] Dec 05, 2020 08:00 AM AM[facility]ORY [place] NONE [place] [facility] Dec 11, 2020 12:00 PM AM[facility] [place] [facility] Dec 23, 2020 11:00 AM [facility] [place] [facility] Dec 30, 2020 10:15 AM AM[place]UL[place]ORY - NONE [place] [facility] Active, Pending, and Scheduled Orders This section [...] PM Consult Order COMMUNITY CARE-COLONOSCOPY [place] [facility] SCREENING Cons Training And Development Project Leader's Choice Vital Signs: All taken on the encounter date This section contains inpatient and outpatient Vital Signs collected on the date of the Encounter. Date/Time Temperature Pulse Blood Respiratory SP02 Pain Height Weight Gildardo dy Source Pressure Rate Mass Index Jul 04, 97.2 F 79 126/80 18 /min 98 % 0 262.4 38 WHITE 2020 01:51 /min mm[Hg] lb [place] PM [facility] Social History: Smoking Status (Most current) [...] AM VA-TOBACCO FORMER USER [place] [facility] Tobacco Use History This section includes a history of the smoking, or tobacco-related health factors, that were collected on or before the date of the Encounter. The data comes from the [place] facility where the Encounter took place. Date/Time Smoking Status/Tobacco Use Comment [facility] Apr 09, 2020 11:00 AM VA-TOBACCO QUIT 15 YRS OR MORE [place] [facility] Jan 14, 2018 03:08 PM VA-TOBACCO FORMER USER I [place] [facility] Jan 14, 2018 03:08 PM VA-TOBACCO QUIT 15 YRS OR MORE [facility] Mar 16, 2017 09:08 AM QUIT TOBACCO USE > 7 YEARS AGO [facility] quit 1983Mar 04, 2016 10:28 AM QUIT TOBACCO USE > 7 YEARS AGO [facility] Quit 1983Mar 10, 2005 10:47 AM HISTORY OF SMOKING [place] [facility] 1983Mar 31, 2004 09:26 AM HISTORY OF SMOKING [place] [facility] Mar 31, 2004 09:26 AM QUIT TOBACCO USE > 7 YEARS AGO [facility] Aug 22, 2001 01:30 [...] 2014 ADVANCE DIRECTIVE E[facility]AL [facility] Encounter Notes: All associated encounter notes This section contains the clinical notes associated to the Encounter. Date/Time Encounter Note(s) Provider Source Jul 04, 2020 02:00 PM PRIMARY CARE NOTE: TOSHIA OHT LOCAL TITLE: Primary Care Clinic Note [facility] STANDARD TITLE: PRIMARY CARE NOTE DATE OF NOTE: JUL 04, 2020@14:00 ENTRY DATE: JUL 02, 2020@12:30:17 AUTHOR: T[place]HIA [place] EXP COSIGNER: MANNY ARTEAGA URGENCY: STATUS: COMPLETED Primary Care Clinic Note Has ADDENDA SUBJECTIVE: cc: f/u transient loss of vision HPI: 75 year old MALE, pmh significant f or bipolar disorder, anxiety, JAY JAY, CKD stage 3, asthma, prostate ca, obesity, presents for f/u episode of transient unilateral vision loss last week. #Vision loss See nonVA medical records 06/27/20 for [facility] imagi ng, labs and recs 06/27/20 had suddent vision loss to left eye for ~15 min sitting watching TV. Symptoms completely resolved after 15 min- felt like a shade was being pulled back open. On clopidogrel 75 mg daily x21 days and started on lisinopril qdaily for HTN; also undergoing 2 week shrimp peeling machine tender Rx'd by Jose FOSS No repeat symptoms since- denies blurry/double v ision, though feels left eye vision is weaker than right since the event Denies dizziness, lightheadedness, weakness #Mood States he has been looking in to ways to end th ings on the internet Feeling depressed/down every day- denies change/ lack of interest On sertraline 100mg - wonders if he should be on wellbutrin as he felt this helped his mood more Denies active plans for suicide or any attempts (crossed wrists to simulate cutting himself in the 80s)-- suicide screen neg ative today He is open to speaking with someone at mental health and felt that it has helped opening up today #SOB Feels increased SOB last 7-1 0 days- ex coming in from outside, putting dishes in store assistant, getting out of chair. +Dry, nonproductive cough worse at night - takes Symbicort in fall/spring which helps with cough- not lately. Takes albuterol in haler 2-3x/week Denies chest tightness, wheeze, chest pain, pres sure, palpitations (EKG 06/26 with no ischemic findings) #Poor balance Denies falls since one in [facility] note on 04/09/20 Denies dizziness, lightheadedness but feels chris nce could use improvement Holds on to culver in apt Has wheelchair but no walker or cane at home Spends days mostly in chair, mth sense all d ay #HLD On simvastatin ASCVD risk: high (31.2%) He would like to increase this medication as rec ommended in last letter ROS: Gen: Sleeps a lot, >12 hr/day, fair energy-spend s all day in chair, appetite good. No weight loss/gain. Denies fever/chills/w eakness HEENT: Weaker vision in L eye since transient loss last week. Denies headaches, sinus pain/pressure, visual/a udio disturbances, PND, ear pain, sore throat Resp: See HPI CV: Denies chest pain or pressure, palpitations, lightheadedness, DELONG GI: +constipation. Denies n/v/d, abd pain, blood in stool, heartburn : Denies urinary problems MSK: Denies joint pain, myalgias, swelling/redne ss of joints or extremities Neuro: See HPI. Denies numbness, tingling PSYCH: See HPI Social History: Smoking: [] yes [x] no ETOH: [] yes [x] no How many times in the past year had 4+ drinks in one occasion Rec drugs: [] yes [x] no Caffeine: [x] yes [] no 5 cups/day (low or no caff) Activity: Likes to [employer] online it's all I do. Spends most of his day in recliner Drives: Yes, not much, tries not to- to grocery store etc. Denies near misses or accidents. Diet: Has been eating packaged salads from senia ry store in effort to eat healthier and has been feeli ng clearer with this. 2 coffee mugs of water a day. 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 Gastroesophageal reflux disease 2. Hallucinations 3. Umbilical hernia 4. Lichen simplex chronicus 5. Tinea pedis 6. Obstructive sleep apnea of adult 7. Mood disorder 8. Chronic kidney disease stage 3 9. Keratoderma 10. Allergic conjunctivitis 11. Trifascicular block 12. Cancer, prostate, primary 13. Asthma 14. Low Back Pain, Lumbago 15. Personal History of Colonic Polyps 16. Obesity 17. Esophageal Reflux 18. Anxiety Disorders 19. Bipolar Disorder NOS 20. Paranoia 21. Pure hypercholesterolemia MEDS: Active Outpatient Medications (excluding Supplie s): Active Outpatient Medications Status 1) BUDESONIDE 80/FORMOTER 4.5MCG 120D INH INHA LE 2 PUFFS ACTIVE BY MOUTH TWICE A DAY FOR BREATHING/RINSE MOUTH WITH WATER,SWISH AROUND AND SPIT OUT AFTER USI NG INHALER --Taking seasonally - spring and fall 2) KETOCONAZOLE 2% SHAMPOO SHAMPOO SMALL AMOUN T ACTIVE TOPICALLY ON MONDAYS AND THURSDAYS --Taking 3) OMEPRAZOLE 20MG EC CAP TAKE ONE CAPSULE BY MOUTH ACTIVE (S) EVERY DAY FOR STOMACH ACID (TAKE HALF-LAMONT R BEFORE A MEAL(S) --Taking, interested in weaning off as he denies GI/heartburn symptoms 4) SERTRALINE HCL 100MG TAB TAKE ONE TABLET BY MOUTH ACTIVE EVERY DAY FOR DEPRESSION OR ANXIETY --Taking 5) SIMVASTATIN 20MG TAB TAKE ONE TABLET BY ALBINA EVERY ACTIVE DAY TO LOWER CHOLESTEROL --Taking Active Non-VA Medications Status 1) Non-VA ASPIRIN 325MG TAB 325MG MOUTH EVERY DAY ACTIVE --Taking Also takes B12 -Albuterol, 2-3x/week --Clopidogrel 75mg and lisinopril 5mg 6 Total Medications ALLERGIES: Patient has answered NKA OBJECTIVE: DATE/TIME TEMP PULSE RESP B P PAIN WEIGHT 07/04/20 @ 1351 97.2 79 18 1 0 262.4 07/04/20 @ 1351 PULSE OXIMETRY: 98 BODY MASS INDEX - JUL 04, 2020@13:51:33 37.7 PHYSICAL EXAM GEN: Well-appearing, well nourished and hydrated . Appropriately dressed and groomed. Calm, cooperative, pleasant demeanor. A ppears comfortable, in no apparent distress. Wearing surgical gloves HEENT: Normocephalic. PERRLA. EOM intact. Visual lopez intact. Conjunctiva clear, sclera anicteric. Hearing grossly intact. Mask in place over mouth and nose NECK: Supple, no thyromegaly or lymphadenopathy. No carotid bruits. CV: RRR S1 S2 nl, no murmurs, rubs or gallops. J VD not appreciated. PMI non- displaced PULM: CTA bilat, A+P. Good air movement througho ut. No wheeze, crackles or rales. Completes sentences easily in 1 b reath. Mild SOB noted after walking ~6 feet in exam room, improves with sitting ABD: +BSx4, soft, obese abdomen, nontender witho ut masses/bruits/HSM/bulges. NEURO: A+Ox3. CN II-XII grossly intact, DTRs 2/4 x 4 ext. No tremor. Feet and hands with normal sensation to light touch. EXT: No edema; pulses 2/4 x 4 ext MSK: Ambulates independently without assistive a id. Somewhat unsteady gait, difficulty bringing left ursula t forward when right foot ahead in tandem. Romberg: negative. Bilat UE and LE proximal and distal st rength 5/5, mortgage closing clerk strength 5/5 bilaterally. SKIN: [place] warm and dry. Nor mal turgor. No petechiae, purpura, ecchymoses, rash. No suspicious lesions appreciated. PSYCH: Appropriate affect and demeanor. Maintain s eye contact. Normal speech pattern, linear thought process. Labs/Tests: repeat BMP today, with decline in eg fr/elevation in creat/bun in hosptial ASSESSMENT/PLAN: #S/p transient L eye vision loss Following [facility] recs: consults to re-eval with op thamology, neurology and consulting cardiology for ROBIN Asked to send [place] heart monitor records after com pletion of 2 weeks ?Renew clopidogrel after 21 days pending ROBIN res ults, ?afib on heart monitor #SOB DDx: Asthma, Deconditioning Re-start Symbicort 2 puffs BID, continue albuter ol- re-assess 3 weeks #Mood Declines having plan or any attempts Expressed gratitude that he opened up/glad he's here today Provided with vet crisis line card/number Will increase sertraline to 150mg/qdaily Will order psychiatry consult, MH consult Consider light box ?firearms in home #Unsteady gait/poor balance Ordering cane and balance training through PT to day Consider [facility] PT as pt prefers not to drive if po ssible #HLD Will switch to high intensity therapy: rosuvasta tin 20mg f/u labs ~late August/early September #GERD Given no heartburn symptoms, discussed slowly weaning omeprazole- pt is on board to reduce pill burden Discussed lifestyle measures: sitting upright 60 min after a meal, avoiding heartburn inducing foods Consider offering healthy kitchen consult #Constipation Reodering miralax likes orange flavor #Continuous Health Monitoring/Prevention Sigmoid/colo due: Discuss next visit, pt hesitan t as he felt pain the last procedure when he had been knocked out in prior colos. Constipation preventing him from sending stool sample/Fit AAA: ruled out 2012 Screening >65 yo: Mini-Cog next visit on [facility] Counseling reviewed: Diet, exercise, fall safety , mental health resources Immunizations: Up to date [] , Pneumovax [], tetanus [due 03/06], flu vaccine [], Shingrix [], Covid [getting @ [facility] 07/05] Depression screen: []neg [x]pos Eye exam: [x] yes [] no consulting opthamolog y Dental exam [] yes [] no last next AD, LST: on file, not discussed today Reviewed: Medication/treatment benefits/risks/si de effects/monitoring Side effects from medications [x] yes [] no RTC: F/u in 3 weeks [facility] Labs (14 Days) No data available CLINICAL REMINDERS Suicide Screen: C-SSRS Screening [place]-Suicide Severity Rating Scale (C- SSRS Screener) 1. Over the past month, have you wished you were or wished you could go to sleep and not wake up? No 2. Over the past month, have you had any actual thoughts of killing yourself? No 3. Over the past month, have you been th inking about how you might do this? Response not required due to responses t o other questions. 4. Over the past month, have you had the se thoughts and had some intention of acting on them? Response not required due to responses t o other questions. 5. Over the past month, have you started to work out or worked out the details of how to kill yourself? Response not required due to responses t o other questions. 6. If yes, at any time in the past month did you intend to carry out this plan? Response not required due to responses t o other questions. 7. In your lifetime, have you ever done anything, started to do anything, or prepared to do anything to end your life (for example, collected pills, obtained a gun, gave away valuables, went to the roof but didn't jump)? Yes 8. If YES, was this within the past 3 mo nths? No Info Only: [facility] Video Connect Capable: [facility] Modality: [facility] Connect ([facility]): [place] is using their OWN technology to connect for videoconferencing. Use [employer] PAPERHANGER AND PAINTER ([employer]) t o create an email link that is sent to both provider and Tablet Medication Reconciliation: Outpatient: Has the patient been taking medications as documented in the EMLR? No: Discrepencies were identified. See bel ow. Essential Medication List for Review used to [...] discontinued in the past 90 days. - Discrepancies were identified, addressed , and discussed with the patient/caregiver at this encounter. - All changes in medic ations, including all non-VA/Herbal/OTC medications were entered into CPRS. Changes: taking B12, entered - If there were any medications the patien t should no longer take, they were discontinued. - The patient/caregiver was instructed to update this list, discard old lists, and take this list to the next appo intment, whether with a VA or non-VA provider. /chris/ TOSHIA [place] Nurse Practitioner Resident Signed: 07/04/2020 17:03 /chris/ Manny Arteaga MSN, ENTERPRISE SOFTWARE ENGINEER Nurse Practitioner Faculty Cosigned: 07/04/2020 17:13 07/04/2020 ADDENDUM STATUS: COMPLETED I performed a history and physical examination o f the patient and discussed management with the resident. I reviewed the residents note and agree with the documented findings and plan of care. /chris/ Manny Arteaga MSN, ENTERPRISE SOFTWARE ENGINEER Nurse Practitioner Faculty Signed: 07/04/2020 17:14 07/19/2020 ADDENDUM STATUS: COMPLETED Called pt, in review of [facility] note, advised to st op clopidogrel and continue solely on asa 325 for now un til seeing neurology. He has already taken dose for today but verbalized he will not take clopidogrel tomorrow and will continue asa 325 mg until his neurology appt on 08/21. /chris/ TOSHIA [place] Nurse Practitioner Resident Signed: 07/19/2020 12:29 /chris/ Manny Arteaga MSN, ENTERPRISE SOFTWARE ENGINEER Nurse Practitioner Faculty Cosigned: 07/19/2020 15:15
--- OUTSIDE RECORDS SUMMARY | 2020-12-05 21:37 | XMS_ITS | Encounter Summary ---
:1945 Author Organization Department [facility] rs Address [address] [place] [id number] Care Team Providers Name Role Phone CHANDLER, [...] Number Dhillon ANTHEM PREFERRED BASIC May 17 [id number] [phone] OSCAR LITTLE P ATIENT [place] PROVIDER SELF 2002 [id number] AN (FEDERAL) ORGANIZAT ION (PPO) [place] PREFERRED BASIC May 17 [id number] [phone] OSCAR MACEDO PATIENT FEDERAL PROVIDER SELF 2002 22 4 AN ORGANIZAT ION (PPO) [place]-F PRESCRIPT BCBS May 17, [id number] [phone] FR OSCAR PASTRANA PATIENT EP BCBS ION FEP 2010 [id number] AN PLAN MEDICARE MEDICARE PART Jan 15 PART A [id number] [id number] OSCAR LITTLE PATIENT (WNR) (M) A 2008 [id number] 2 AN Selected Encounter This section includes the information on record at MD for the Encounter. Date/Time Encounter Type Encounter Reason Provider Source Description Jul 04, 2020 PT EVAL LOW PHYSICAL THERAPY ICD-10-CM R26.89 ARMBRUST,K URT 04:17 PM COMPLEX 20 MIN Other abnormalities of gait and mobility with Provider Comments: Other Abnormalities of Gait and Mobility IHE Encounter Template Text not used by [facility] Assessments - Encounter Diagnoses This section includes the primary and secondary diagnoses documented forthe Encounter. Date/Time Primary/Secondary Diagnosis Name Provider Source Diagnosis Jul 04, 2020 PRIMARY Other abnormalities JOSE F BARKER IVER 04:29 PM of gait and [place] [facility] mobility Plan of Treatment: Future Appointments (+ 6 months) and Future Tests (+/- 45 days) The Plan of Treatment section includes future care activities for the patient from all MD treatment facilities. This section includes future appointments and future orders which are active, pending or scheduled.Future Appointments This section includes appointments that were scheduled to occur 6 months from the date of the Encounter, up to a maximum of 20 appointments. The [facility] Appointment Date/Time Appointment Type Appointment Facili ty Name Jul 17, 2020 11:15 AM AM[place] [facility] Jul 19, 2020 01:00 PM [place] [facility] Jul 19, 2020 02:00 PM [place] [facility] Jul 22, 2020 09:00 AM [place]IC[place] [facility] Jul 29, 2020 11:00 AM AMBUL[facility]ORY - NONE [place] [facility] Jul 31, 2020 11:00 AM [place] [facility] Aug 13, 2020 10:00 AM [place]ORY [place]IC[place] [facility] Aug 21, 2020 10:00 AM AMBULATORY [place]IC[place] [facility] Aug 21, 2020 11:00 AM [place] [facility] October 02, 2020 10:15 AM [place] [facility] October 09, 2020 01:00 PM [place]IC[place] [facility] Oct 28, 2020 11:00 AM AMBULATORY - NONE [place] [facility] Nov 04, 2020 01:00 PM [place] [facility] Nov 12, 2020 08:30 AM AM[facility]ULATORY - NONE [place] [facility] Nov 19, 2020 02:00 PM AM[place]UL[place] [facility] Dec 05, 2020 08:00 AM AMBULATORY - NONE [facility] Dec 11, 2020 12:00 PM AMBULATORY - PSYCHIATRY [facility] Shaver [facility] Dec 23, 2020 11:00 AM AMBULATORY - REHAB MEDICINE [facility] Hoskins [facility] Dec 30, 2020 10:15 AM AMBULATORY - NONE [facility] Active, Pending, and Scheduled Orders This section includes a listing of several types of active, pending, and scheduled orders, including clinic medications orders, diagnostic test orders, procedure orders and consult orders; where the start date of the order is 45 days before the date of the Encounter or 45 days after the date of the Encounter. The data comes from all [facility] facilities. Test Date/Time Test Type Test Details Facility Name Jul 29, 2020 12:57 PM Consult Order COMMUNITY CARE-COLONOSCOPY [facility] SCREENING Cons Legislative Analyst's Choice Surgical Procedures: All associated to the encounter This section includes all Surgical Procedures and Surgical Procedure Notes associated to the Encounter.Surgical Procedures This section includes all Surgical Procedures associated to the Encounter.Surgical Procedure Date/Time Procedure Procedure Type Procedure Provider Source Qualifiers Jul 04, 2020 PT EVAL LOW PT EVAL LOW GP-OP PT JOSE F BARKER R IVER 04:17 PM COMPLEX 20 MIN COMPLEX 20 MIN SERVICES [facility] Surgical Notes There are no notes associated with this procedure. Surgical Procedure Date/Time Procedure Procedure Type Procedure Provider Source Qualifiers Jul 04, 2020 PT PT EVAL LOW JOSE F BARKER RI JAKUB 04:17 PM Evaluation,Low COMPLEX 20 MIN [facility] Complexity Surgical Notes There are no notes [...] 2020 01:51 /min mm[Hg] lb [place] PM [facility] Social History: Smoking Status (Most current) and Tobacco Use (All prior to encounter date) This section includes the most current, and the historical, smoking and tobacco-related health factors from the MD facility where the Encounter took place.Current Smoking Status This section includes the most current smoking, or tobacco-related health factor, from the MD facility where the Encounter took place. Date/Time Current Smoking Status Comment Facility Apr 09, 2020 11:00 AM VA-TOBACCO FORMER USER [place] [facility] Tobacco Use History This section includes a history of the smoking, or tobacco-related health factors, that were collected on or before the date of the Encounter. The data comes from the MD facility where the Encounter took place. Date/Time Smoking Status/Tobacco Use Comment [facility] Apr 09, 2020 11:00 AM VA-TOBACCO QUIT 15 YRS OR MORE [place] [facility] Jan 14, 2018 03:08 PM VA-TOBACCO FORMER USER [place] [facility] Jan 14, 2018 03:08 PM VA-TOBACCO QUIT 15 YRS OR MORE [place] [facility] Mar 16, 2017 09:08 AM QUIT TOBACCO USE > 7 YEARS AGO [place] [facility] quit 1983Mar 04, 2016 10:28 AM QUIT TOBACCO USE > 7 YEARS AGO [place] [facility] Quit 1983Mar 10, 2005 10:47 AM H[place]ORY OF SMOKING [place] [facility] 1983Mar 31, 2004 09:26 AM H[place]ORY OF SMOKING [place] [facility] Mar 31, 2004 09:26 AM QUIT TOBACCO USE > 7 YEARS AGO [place] [facility] Aug 22, 2001 01:30 PM HISTORY OF SMOKING [place] [facility] Advance Directives: All historical and current Section Date Range: From patient's date of to the date document was created. This section includes ALL of a patient's completed or amended MD Advance and Rescinded Directives. The entries below indicate that a directive exists for the patient, but an actual copy is not included with this document. The data comes from all MD facilities. Date Advance Directives Provider Source Feb 23, 2014 ADVANCE DIRECTIVE EYAL MONTILLA [place] [facility] Encounter Notes: All associated encounter notes This section contains the clinical notes associated to the Encounter. Date/Time Encounter Note(s) Provider Source Jul 04, 2020 04:17 PM PHYSICAL THERAPY NOTE: JOSE F BARKERYue [place] LOCAL TITLE: Physical Therapy Note [facility] STANDARD TITLE: PHYSICAL THERAPY NOTE DATE OF NOTE: JUL 04, 2020@16:17 ENTRY DATE: JUL 04, 2020@16:17:30 AUTHOR: JOSE F BARKER COSIGNER: URGENCY: STATUS: COMPLETED Diagnosis: Other Abnormalities of Gait and Mobil ity(ICD-10-CM R26.89) Referred by: TOSHIA OH Referred for: Evaluation for appropriate assisti ve device Date of Onset: Chronic Start of PT plan of care: 07/04/20 16:17 The patient was evaluated for the appropriate as sistive device and it was determined based on their height, weight, patien t need, patient capability, etc., that a cane was the medically appropriate device to assist the patient with safe ambulation. [place] educated in the prop er use of a straight cane, and instructed to use it in the either hand. [place] demonstrate s understanding and proper, safe usage of the cane. Cane was adjusted to the appropria te height and issued to the [place]. Ice gripper also issued and instructed i n use. The above results and recommendations were expla ined to the [place] (or surrogate), who verbally acknowledged an underst [...] Jose F Barker Chief, PT/OT; Licensed in [place] Signed: 07/04/2020 16:29
--- OUTSIDE RECORDS SUMMARY | 2020-12-05 21:39 | XMS_ITS ---
:1945 Author Organization Department [facility] rs Address [address] [place] [address] Care Team Providers Name Role Phone MANNY [...] Number Dhillon ANTHEM PREFERRED BASIC May 17 [id number] [phone] OSCAR LITTLE P ATIENT [place]BS OF [place] PROVIDER SELF 2002 [id number] AN (FEDERAL) ORGANIZAT ION (PPO) [place] PREFERRED BASIC May 17 [id number] [phone] OSCAR MACEDO PATIENT FEDERAL PROVIDER SELF 2002 22 4 AN ORGANIZAT ION (PPO) [place]-F PRESCRIPT BCBS May 17, [id number] [phone] FR OSCAR PASTRANA PATIENT EP BCBS ION FEP 2010 0 [id number] [phone] AN PLAN MEDICARE MEDICARE PART Jan 15, PART A [id number] [phone] SIDNEY OSCAR PATIENT (WNR) (M) A 2008 [id number] 2 AN Selected Encounter This section includes the information on record at [place] for the Encounter. Date/Time Encounter Type Encounter Reason Provider Source Description Nov 20, 2020 Outpatient OTOLARYNGOLOGY/E ICD-10-CM H90.3 JAZZ CEDENO 09:52 AM Encounter NT Sensorineural hearing loss, bilateral with Provider Comments: Sensorineural Hearing Loss, Bilateral IHE Encounter Template Text not used by [place] Assessments - Encounter Diagnoses This section includes the primary and secondary diagnoses documented forthe Encounter. Date/Time Primary/Secondary Diagnosis Name Provider Source Diagnosis Nov 25, 2020 PRIMARY Sensorineural JAZZ CEDENO 02:42 PM hearing loss, [place] [facility] bilateral Plan of Treatment: Future Appointments (+ 6 months) and Future Tests (+/- 45 days) The Plan of Treatment section includes future care activities for the patient from all [place] treatment facilities. This section includes future appointments and future orders which are active, pending or scheduled.Future Appointments This section includes appointments that were scheduled to occur 6 months from the date of the Encounter, up to a maximum of 20 appointments. The data comes from all [facility]. Appointment Date/Time Appointment Type Appointment Facili ty Name Dec 05, 2020 08:00 AM AMBULATORY - NONE [facility] Dec 11, 2020 12:00 PM AMBULATORY - PSYCHIATRY [facility] Dec 23, 2020 11:00 AM AMBULATORY - REHAB MEDICINE [facility] Hoskins [facility] Dec 30, 2020 10:15 AM AMBULATORY - NONE [facility] Jan 28, 2021 10:00 AM AMBULATORY - NONE [facility] Feb 26, 2021 01:30 PM AMBULATORY - NONE [facility] Active, Pending, and Scheduled Orders This section includes a listing of several types of active, pending, and scheduled orders, including clinic medications orders, diagnostic test orders, procedure orders and consult orders; where the start date of the order is 45 days before the date of the Encounter or 45 days after the date of the Encounter. The data comes from all [place] treatment facilities. Test Date/Time Test Type Test Details Facility Name October 09, 2020 01:31 PM Consult Order SLEEP CLINIC [facility] Hoskins [facility] OUTPATIENT Cons [facility] Evaluator Transfer Students's Choice Nov 26, 2020 12:00 AM Laboratory - Chemistry P4 [facility] Order GLU,BUN,CREAT,LYTES,CA [facility] LT GREEN(LI HEP) PLASMA SP Dec 30, 2020 10:15 AM Imaging - Magnetic MRI BRAIN W/WO [place] Resonance Imaging CONTRAST [facility] (MRI) Order Social History: Smoking Status (Most current) and Tobacco Use (All prior to encounter date) This section includes the most current, and the historical, smoking and tobacco-related health factors from the [place] facility where the Encounter took place.Current Smoking Status This section includes the most current smoking, or tobacco-related health factor, from the [place] facility where the Encounter took place. Date/Time Current Smoking Status Comment Facility Apr 09, 2020 11:00 AM VA-TOBACCO FORMER USER [place] [facility] Tobacco Use History This section includes a history of the smoking, or tobacco-related health factors, that were collected on or before the date of the Encounter. The data comes from the [place] facility where the Encounter took place. Date/Time Smoking Status/Tobacco Use Comment [facility] Apr 09, 2020 11:00 AM VA-TOBACCO QUIT 15 YRS OR MORE [place] [facility] Jan 14, 2018 03:08 PM VA-TOBACCO FORMER USER [place] [facility] Jan 14, 2018 03:08 PM VA-TOBACCO QUIT 15 YRS OR MORE [place] [facility] Mar 16, 2017 09:08 AM QUIT TOBACCO USE > 7 YEARS AGO [place] [facility] quit 1983Mar 04, 2016 10:28 AM QUIT TOBACCO USE > 7 YEARS AGO [place] [facility] Quit 1983Mar 10, 2005 10:47 AM H[place]ORY OF SMOKING [place] [facility] 1983Mar 31, 2004 09:26 AM HISTORY OF SMOKING [place] [facility] Mar 31, 2004 09:26 AM QUIT TOBACCO USE > 7 YEARS AGO [place] [facility] Aug 22, 2001 01:30 PM HISTORY OF SMOKING [place] [facility] Advance Directives: All historical and current Section Date Range: From patient's date of to the date document was created. This section includes ALL of a patient's completed or amended [place] Advance and Rescinded Directives. The entries below indicate that a directive exists for the patient, but an actual copy is not included with this document. The data comes from all [place] facilities. Date Advance Directives Provider Source Feb 23, 2014 ADVANCE DIRECTIVE EYAL MONTILLA [place] [facility] Encounter Notes: All associated encounter notes This section contains the clinical notes associated to the Encounter. Date/Time Encounter Note(s) Provider Source Nov 20, 2020 09:52 AM CONSULT: JAZZ CEDENO J[place] LOCAL TITLE: E-Consult Note [facility] STANDARD TITLE: CONSULT DATE OF NOTE: NOV 20, 2020@09:52 ENTRY DATE: NOV 20, 2020@09:52:57 AUTHOR: JAZZ CEDENO EXP COSIGNER: URGENCY: STATUS: COMPLETED E-Consult Note Has ADDENDA This consult was requested due to asymmetric sen sorineural hearing loss. Reason For Request: new [facility] not [facility], test completed 11/15/20. Results show only slight difference in threshold s (worse left ear) but word recognition score is significaintly worse l eft ear (20% versus 88% right ear). Pt. has history of auditory halluci nations (had an MRI at [place] for this) as well as a recent sudden loss of vis ion in left eye (also propted MRI). He denies tinnitus. Just wanted re view of audio MRI given the asymmtery in word recognition to rule out re trocochlear issues prior to trial with hearing aids. Thank you This consult is being handled as an e-co nsult. Please feel free to contact me by secure email or place an outpatient ENT consult if additional information or treatment are necessary. I have reviewed the patient's electronic chart, including prior audiograms as well as audiology notes. I also reviewed his pr evious brain MRI, which was a noncontrast traditional brain MRI scan without t hin cuts through the IAC or contrast. This MRI scan was reportedly normal. Based on assessment of the above information, th is patient has asymmetric sensorineural hearing loss. Potential etiologies include vestibular schwannoma or other CARPET SEWER injury, lesions, asymmetric acoustic trauma, ototoxic medications, cochlear hydrops, or Meniere's disease. If vertigo, aural fullness, and/or fluctuation in hearing are present to suggest the latter, a low sodium diet and low-dose dyazi de are often recommended. The patient should have an audiogram timbo ually to confirm stability of hearing. Ear protection in noisy environments should also be encouraged. This patient meets audiometr ic criteria for a recommendation for MRI scan of the IAC's with contrast to rule out retrocochlear pa thology such as a vestibular schwannoma. His previous brain MRI should have picked up any large lesions affecting the cochlear nerve. However, small le sions could theoretically go undetected with his prior MRI study. My impress ion is that it is not likely that additional imaging will impact management of his hearing loss. However, if there are other neurologic c oncerns or other reasons to obtain additional brain imaging, I will alert the PCP to consider orderi ng the followin. BUN, Cr 2. MRI of the Brain: IAC protocol with contrast Indication: Rule out retrocochlear pathology in patient with asymmetric sensorineural hearing loss. /chris/ JAZZ Tang MD Signed: 11/25/2020 14:42 Receipt Acknowledged By: 11/26/2020 17:54 /es/ Manny hoskins MSN, CONCRETE FLOAT [employer]KER Nurse Practitioner Faculty 11/27/2020 10:37 /es/ TOSHIA OH Nurse Practitioner Resident 11/27/2020 ADDENDUM STATUS: COMPLETED TC to pt - left message on machine to call back- for consent for MRI /chris/ TOSHIA OH Nurse Practitioner Resident Signed: 11/27/2020 10:38 11/27/2020 ADDENDUM STATUS: COMPLETED MRI ordered /marcus OH Nurse Practitioner Resident Signed: 11/27/2020 10:47
--- OUTSIDE RECORDS SUMMARY | 2020-12-05 21:39 | XMS_ITS | Encounter Summary ---
:1945 Author Organization Department [facility] rs Address [address] [place] [address] Care Team Providers Name Role Phone CHANDLER, [...] Number Dhillon ANTHEM PREFERRED BASIC May 17 [id number] [phone] OSCAR LITTLE P ATIENT [place]BS [place] PROVIDER SELF 2002 [id number] AN (FEDERAL) ORGANIZAT ION (PPO) [place] PREFERRED BASIC May 17 [id number] [phone] OSCAR MACEDO PATIENT FEDERAL PROVIDER SELF 2002 22 4 AN ORGANIZAT ION (PPO) CAREMARK-F PRESCRIPT BCBS May 17, [id number] [phone] FR OSCAR PASTRANA PATIENT EP BCBS ION FEP 2010 0 [id number] AN PLAN MEDICARE MEDICARE PART Jan 15, PART A [id number] SIDNEY OSCAR PATIENT (WNR) (M) A 2008 [id number] 2 AN Selected Encounter This section includes the information on record at AR for the Encounter. Date/Time Encounter Type Encounter Reason Provider Source Description Nov 19, 2020 HEARING AID AUDIOLOGY ICD-10-CM H90.3 GABI GALINDO 02:00 PM EXAM BOTH EARS Sensorineural hearing loss, bilateral with Provider Comments: Sensorineural Hearing Loss, Bilateral IHE Encounter Template Text not used by [facility] Assessments - Encounter Diagnoses This section includes the primary and secondary diagnoses documented forthe Encounter. Date/Time Primary/Secondary Diagnosis Name Provider Source Diagnosis Nov 19, 2020 PRIMARY Sensorineural GABI GALINDO 03:28 PM hearing loss, [place] [facility] bilateral Plan of Treatment: Future Appointments (+ 6 months) and Future Tests (+/- 45 days) The Plan of Treatment section includes future care activities for the patient from all AR treatment facilities. This section includes future appointments and future orders which are active, pending or scheduled.Future Appointments This section includes appointments that were scheduled to occur 6 months from the date of the Encounter, up to a maximum of 20 appointments. The data comes from all [facility]. Appointment Date/Time Appointment Type Appointment Facili ty Name Dec 05, 2020 08:00 AM AMBULATORY - NONE [facility] Dec 11, 2020 12:00 PM AMBULATORY - PSYCHIATRY ADITYA PRITCHARD [facility] Dec 23, 2020 11:00 AM AMBULATORY - REHAB MEDICINE ADITYA PRITCHARDT [facility] Dec 30, 2020 10:15 AM AM[facility]UL[facility]ORY - NONE [place] [facility] Jan 28, 2021 10:00 AM AMBULATORY - NONE [facility] Feb 26, 2021 01:30 PM AMBULATORY - NONE [facility] Active, Pending, and Scheduled Orders This section includes a listing of several types of active, pending, and scheduled orders, including clinic medications orders, diagnostic test orders, procedure orders and consult orders; where the start date of the order is 45 days before the date of the Encounter or 45 days after the date of the Encounter. The data comes from all AR treatment facilities. Test Date/Time Test Type Test Details Facility Name October 09, 2020 01:31 PM Consult Order SLEEP CLINIC ADITYA PRITCHARDT OUTPATIENT Cons [facility] Blasting [employer] [facility] Nov 26, 2020 12:00 AM Laboratory - Chemistry P4 I MAXWELL T Order GLU,BUN,CREAT,LYTES,CA [facility] LT GREEN(LI HEP) PLASMA SP Dec 30, 2020 10:15 AM Imaging - Magnetic MRI BRAIN W/WO ADITYA PRITCHARD Resonance Imaging CONTRAST [facility] (MRI) Order Surgical Procedures: All associated to the encounter This section includes all Surgical Procedures and Surgical Procedure Notes associated to the Encounter.Surgical Procedures This section includes all Surgical Procedures associated to the Encounter.Surgical Procedure Date/Time Procedure Procedure Type Procedure Provider Source Qualifiers Nov 19, 2020 HEARING AID HEARING AID GABI GALINDO 02:00 PM EXAM BOTH EARS EXAM BOTH EARS [facility] Surgical Notes There are no notes associated with this procedure. Surgical Procedure Date/Time Procedure Procedure Type Procedure Provider Source Qualifiers Nov 19, 2020 TYMPANOMETRY & TYMPANOMETRY & GABI GALINDO 02:00 PM REFLEX THRESH REFLEX THRESH D [place] [facility] Surgical Notes There are no notes associated with this procedure. Surgical Procedure Date/Time Procedure Procedure Type Procedure Provider Source Qualifiers Nov 19, 2020 COMPREHENSIVE COMPREHENSIVE GABI GALINDO 02:00 PM HEARING TEST HEARING TEST D RIVER T [facility] Surgical Notes There are no notes associated with this procedure. Social History: Smoking Status (Most current) and Tobacco Use (All prior to encounter date) This section includes the most current, and the historical, smoking and tobacco-related health factors from the AR facility where the Encounter took place.Current Smoking Status This section includes the most current smoking, or tobacco-related health factor, from the AR facility where the Encounter took place. Date/Time Current Smoking Status Comment [facility] Apr 09, 2020 11:00 AM VA-TOBACCO FORMER USER Yue [facility] Tobacco Use History This section includes a history of the smoking, or tobacco-related health factors, that were collected on or before the date of the Encounter. The data comes from the AR facility where the Encounter took place. Date/Time Smoking Status/Tobacco Use Comment [facility] Apr 09, 2020 11:00 AM VA-TOBACCO QUIT 15 YRS OR MORE ADITYA [place] T [facility] Jan 14, 2018 03:08 PM VA-TOBACCO FORMER USER I [place] T [facility] Jan 14, 2018 03:08 PM VA-TOBACCO QUIT 15 YRS OR MORE ADITYA [facility] Mar 16, 2017 09:08 AM QUIT TOBACCO USE > 7 YEARS AGO ADITYA ARREOLA T [facility] quit 1983Mar 04, 2016 10:28 AM QUIT TOBACCO USE > 7 YEARS AGO ADITYA [facility] Quit 1983Mar 10, 2005 10:47 AM HISTORY OF SMOKING ADITYA POLO [facility] 1983Mar 31, 2004 09:26 AM HISTORY OF SMOKING ADITYA POLO T [facility] Mar 31, 2004 09:26 AM QUIT TOBACCO USE > 7 YEARS AGO ADITYA ARREOLA [facility] Aug 22, 2001 01:30 PM HISTORY OF SMOKING ADITYA POLO [facility] Advance Directives: All historical and current Section Date Range: From patient's date of to the date document was created. This section includes ALL of a patient's completed or amended AR Advance and Rescinded Directives. The entries below indicate that a directive exists for the patient, but an actual copy is not included with this document. The data comes from all AR facilities. Date Advance Directives Provider Source Feb 23, 2014 ADVANCE DIRECTIVE EYAL MONTILLA MAXWELL [place] [facility] Encounter Notes: All associated encounter notes This section contains the clinical notes associated to the Encounter. 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 He lives alone but knows that he is turning the TV up to hear it better. Also, when his brother visits, he has to cup his ear to hear better. He does have auditory hallucinations over the st 2 years or so (had MRI to rule out other causes), MRI reported clear. He says it mostly happens at night (most nights) and can be a green sound, music, et c. GENERAL MEDICAL HISTORY: Cancer: Denied. Diabetes: Denied. Head trauma: Denied. Hypertension: yes but managed with medication Stroke: Unsure, had a sudden loss of vision (las ashwin 15 minutes). They are unsure of cause but he did have an MRI TINNITUS: denied. DIZZINESS/VERTIGO: none reported OTOLOGIC HISTORY: Patient denies any recent or chronic otitis medi a, otorrhea, otalgia or ear surgery. FAMILY HISTORY: none known. : [employer], [phone]. 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 Recreational: no noise reported. Previous audiological evaluations: n/a Hearing aid usage: n/a IMPRESSIONS: OTOSCOPY: Canals are clear. Ear ok pre- and post-impressions. TYMPANOMETRY & ACOUSTIC REFLEX TESTING: Type A tympanogram - middle ear compliance, pres sure and ear canal volume are within normal limits AU. ACOUSTIC REFLEX: EAR FREQUENCY IPSI/CONTRA INTENSIT Y PRESENT (Y/N) Right 1000 Hz Ipsi 90 Y Left 1000 Hz Ipsi 90 N TDH headphones used TYPE OF HEARING LOSS: Sensorineural Hearing Loss , worse left ear. DEGREE OF HEARING LOSS: Right ear: moderate gently sloping to a moderate ly severe SNHL 250-8000 Hz. Left ear: moderate gently sloping to a moderatel y severe SNHL 250-8000 Hz. WORD RECOGNITION: NANCY W22 RIGHT - 88% at 82dB SRT=45dB LEFT - 20% at 84dB SRT=50dB BINAURAL - 80% at 77dB AUDIOGRAM Audiogram is available in this patient's electro bright medical record. To view the actual audiogram , click the Tools menu, and choose Rehab Medicine then Audiogram Display. EDUCATION: Patient was counseled on the test results, benef its and limitations of amplification, and strategies to improve communi cation. He is a good hearing aid candidate and is eligible [facility] [place]. Despite the significant difference in word recognition, hear ing aids in both ears are recommended. Due to the difference I di d mention that I would run this by our ENT (as he has already had two MRI's). We discussed the various styles and he likes the rechargeable custom (with TV accessory ). Ear impressions taken AU. RECOMMENDATIONS: Pt. will return in 4 weeks for the fitting of th e hearing aids and TV device. PROCEDURES COMPLETED: Otoscopy Tympanometry Acoustic Reflex Air Conduction Threshold Testing Bone Conduction Threshold Testing Speech Foamite Mixer Threshold Testing Word Recognition Testing Hearing Aid Order (Binaural) /chris/ Lissett Nielsen Clinical Software Verification Engineer Signed: 11/19/2020 16:38
--- OUTSIDE RECORDS SUMMARY | 2020-12-05 21:39 | XMS_ITS ---
:1945 Author Organization Department [facility] rs Address [address] [place] [id number] Care Team Providers Name Role Phone MANNY [...] Number Dhillon ANTHEM PREFERRED BASIC May 17 [id number] [phone] OSCAR LITTLE P ATIENT [place] PROVIDER SELF 2002 [id number] AN (FEDERAL) ORGANIZAT ION (PPO) [place] PREFERRED BASIC May 17 [id number] OSCAR MACEDO PATIENT FEDERAL PROVIDER SELF 2002 22 4 AN ORGANIZAT ION (PPO) [place]-F PRESCRIPT BCBS May 17 [id number] [phone] FR OSCAR PASTRANA PATIENT EP BCBS ION FEP 2010 0 [id number] AN PLAN MEDICARE MEDICARE PART Jan 15, PART A [id number] [id number] SINDEY OSCAR PATIENT (WNR) (M) A 2008 [id number] 2 AN Selected Encounter This section includes the information on record at [place] for the Encounter. Date/Time Encounter Type Encounter Description Reason Provider Source Oct 30, 2020 04:17 Outpatient Encounter ADMIN PAT ACTIVTIES PM (MASNONCT) IHE Encounter Template Text not used by MS Plan of Treatment: Future Appointments (+ 6 months) and Future Tests (+/- 45 days) The Plan of Treatment section includes future care activities for the patient from all [place] treatment facilities. This section includes future appointments and future orders which are active, pending or scheduled.Future Appointments This section includes appointments that were scheduled to occur 6 months from the date of the Encounter, up to a maximum of 20 appointments. The data comes from all [facility]. Appointment Date/Time Appointment Type Appointment Facili ty Name Nov 04, 2020 01:00 PM AMBULATORY - [place]CHIATRY [place] [facility] Nov 12, 2020 08:30 AM AMBULATORY - NONE [place] [facility] Nov 19, 2020 02:00 PM AMBULATORY - [place] MEDICINE [place] [facility] Dec 05, 2020 08:00 AM AMBULATORY - NONE [place] [facility] Dec 11, 2020 12:00 PM AMBULATORY - PSYCHIATRY [place] [facility] Dec 23, 2020 11:00 AM AMBULATORY - [place] MEDICINE [place] [facility] Dec 30, 2020 10:15 AM AMBULATORY - NONE [place] [facility] Jan 28, 2021 10:00 AM AMBULATORY - NONE [place] [facility] Feb 26, 2021 01:30 PM AMBULATORY - NONE [place] [facility] Active, Pending, and Scheduled Orders This section includes a listing of several types of active, pending, and scheduled orders, including clinic medications orders, diagnostic test orders, procedure orders and consult orders; where the start date of the order is 45 days before the date of the Encounter or 45 days after the date of the Encounter. The data comes from all [facility]. Test Date/Time Test Type Test Details Facility Name October 09, 2020 01:31 PM Consult Order SLEEP CLINIC [place] OUTPATIENT Cons [facility] Nov 26, 2020 12:00 AM Laboratory - Chemistry P4 I TE [place] T Order GLU,BUN,CREAT,LYTES,CA [facility] LT GREEN(LI HEP) PLASMA SP Lab Results: +/- 30 days of the encounter This section includes the Chemistry and Hematology Lab Results on record with MS for the patient. Radiology Reports and Pathology Reports are provided separately, in subsequent sections.Lab Results This section contains the Chemistry/Hematology Results that were resulted 30 days before or 30 days after the date of the Encounter. Date/Time Source Result Type Result - Unit Interpretation Reference Range Comment October 09, 2020 [facility]CREATININE RATIO Specimen Type: URINE 12:19 PM [facility] PANEL Comment: Tests performed on Kohli Gyroscope Technician (405) SN:[id number] Ordering Provider: TOSHIA OH Report Released Date/Time: Sep 05, 2020 04:22 PM Reporting Lab: [facility] [address] [facility] [address] Performing Lab: [place] [facility] [address] [facility] [address] CREATININE (URINE,RANDOM) 178.0 mg/dL MICROALBUMIN, QUANTITATIVE 2.1 mg/dL 0.0 -29.9 MICROALBUMIN/CREATININE RATIO 11.8 mg/g 0.0-29.9 October 09, 2020 [facility] GLU,BUN,CREAT,LYTES,CA Specimen Type: PLASMA 12:18 PM [facility] Comment: Tests performed on [employer] Technician (405) SN:[id number] Ordering Provider: TOSHIA OH Report Released Date/Time: Sep 05, 2020 03:18 PM Reporting Lab: [place] [facility] [address] [facility] [address] Performing Lab: [facility] [address] [facility] [address] UREA NITROGEN 16 mg/dL 7-25 SODIUM 140 mmol/L 135-145 POTASSIUM 4.3 mmol/L 3.5-5.0 CHLORIDE 106 mmol/L 100-110 CARBON DIOXIDE 23 mmol/L 20-30 ANION GAP 11 mmol/L 4-16 GLUCOSE 97 mg/dL 65-100 CREATININE 1.23 mg/dl 0.5-1.5 CALCIUM 9.8 mg/dL 8.5-10.5 eGFR 57 mL/min L >60 October 09, 2020 12:18 [place] LIPOPROTEIN CHOLESTEROL Specimen Type: PLASMA PM [facility] FRACT. PANEL Comment: Tests performed on [employer] Technician (405) SN:[id number] Ordering Provider: TOSHIA OH Report Released Date/Time: Sep 05, 2020 03:18 PM Reporting Lab: [place] [facility] [address] [facility] [address] Performing Lab: [place] [facility] [address] [facility] [address] CHOLESTEROL 119 mg/dL 0-199 TRIGLYCERIDE 131 mg/dL 0-149 HDL CHOLESTEROL 33 mg/dL L >40 LDL CHOLESTEROL (CALC) 60 mg/dl 0-129 October 09, 2020 12:18 PM [place] [facility] IRON+TIBC(P) Specimen Type: PLASMA Comment: Tests performed on [employer] (405) SN:[id number] Ordering Provider: TOSHIA OH Report Released Date/Time: Sep 05, 2020 04:22 PM Reporting Lab: [place] [facility] [address] [facility] [address] Performing Lab: [place] [facility] [address] [facility] [address] IRON 97 ug/dL 40-160 TIBC 332 ug/dL 204-475 IRON SATURATION(P) 29 % >15 October 09, 2020 12:18 PM [place] [facility] FERRITIN Specimen Type: SERUM Comment: Tests performed on [employer] (405) SN:[id number] Ordering Provider: TOSHIA OH Report Released Date/Time: Sep 05, 2020 04:22 PM Reporting Lab: [place] [facility] [address] [facility] [address] Performing Lab: [place] [facility] [address] [facility] [address] FERRITIN 267.2 ng/mL 20-300 October 09, 2020 12:18 PM [place] [facility] URIC ACID Specimen Type: PLASMA Comment: Tests performed on [employer] (405) SN:[id number] Ordering Provider: TOSHIA OH Report Released Date/Time: Sep 05, 2020 04:22 PM Reporting Lab: [place] [facility] [address] [facility] [address] Performing Lab: [place] [facility] [address] [facility] [address] URIC ACID 6.1 mg/dl 3.3-8.7 October 09, 2020 12:18 PM [place] [facility] ALBUMIN Specimen Type: PLASMA Comment: Tests performed on [employer]il [employer] (405) SN:[id number] Ordering Provider: TOSHIA OH Report Released Date/Time: Sep 05, 2020 04:22 PM Reporting Lab: [facility] [address] [facility] [address] Performing Lab: [place] [facility] [address] [facility] [address] ALBUMIN 3.9 g/dL 3.2-5.0 October 09, 2020 12:18 [place] VIT D 25-[place]([facility]) Specimen Type: SERUM PM [facility] Comment: Tests performed on Kohli Gyroscope Technician (405) SN:[id number] Ordering Provider: TOSHIA OH Report Released Date/Time: Sep 05, 2020 04:22 PM Reporting Lab: [facility] [address] [facility] [address] Performing Lab: [place] [facility] [address] [facility] [address] VIT D 25-[place]([facility]) 12.9 ng/mL L 20-50 October 09, 2020 12:18 [facility]) Specimen Type: SERUM PM [facility] Comment: Tests performed on [employer] (405) SN:[id number] Ordering Provider: TOSHIA OH Report Released Date/Time: Sep 05, 2020 04:22 PM Reporting Lab: [place] [facility] [address] [facility] [address] Performing Lab: [facility] [address] [facility] [address] PTH-[place]([facility]) 95.9 pg/mL H 8.7-77.1 October 09, 2020 12:18 [place] URINALYSIS W/REFLEX TO Specimen Type: URINE PM [facility] CULTURE No comment enter ed. Ordering Provider: TOSHIA OH Report Released Date/Time: Sep 05, 2020 04:22 PM Reporting Lab: [place] [facility] [address] [facility] [address] Performing Lab: [place] [facility] [address] [facility] [address] URINE COLOR Yellow YELLOW SPECIFIC GRAVITY 1.018 1.003-1.030 UROBILINOGEN <2.0 mg/dL <2.0 URINE BILIRUBIN NEG NEG URINE KETONES NEG mg/dL NEG URINE GLUCOSE NEG mg/dL NEG PROTEIN, URINE 30 mg/dL NEG URINE PH 5.0 5-8 CLARITY HAZY Clear URINE BLOOD NEG NEG NITRITE, URINE NEG NEG WBC SCREEN NEG NEG October 09, 2020 12:[address] [facility] UAMICROSCOPIC Specimen Type: URINE No comment enter ed. Ordering Provider: TOSHIA OH Report Released Date/Time: Sep 05, 2020 04:22 PM Reporting Lab: [facility] [address] [facility] [address] Performing Lab: [facility] [address] [facility] [address] WHITE BLOOD CELL/URINE 5 /HPF 0-5 HYALINE CAST 5 /LPF H 0-2 GRANULAR CASTS 14 /LPF NONE RED BLOOD CELL/URINE <1 /HPF 0-3 SQUAMOUS EPITHELIAL 12 /LPF Social History: Smoking Status (Most current) and [...] took place. Date/Time Current Smoking Status Comment [facility] Apr 09, 2020 11:00 AM VA-TOBACCO FORMER USER Yue [facility] Tobacco Use History This section includes a history of the smoking, or tobacco-related health factors, that were collected on or before the date of the Encounter. The data comes from the [place] facility where the Encounter took place. Date/Time Smoking Status/Tobacco Use Comment [facility] Apr 09, 2020 11:00 AM VA-TOBACCO QUIT [address] [facility] Jan 14, 2018 03:08 PM VA-TOBACCO FORMER USER [facility] Jan 14, 2018 03:08 PM VA-TOBACCO QUIT [address] [facility] Mar 16, 2017 09:08 AM QUIT TOBACCO USE > [address] [facility] quit 1983Mar 04, 2016 10:28 AM QUIT TOBACCO USE > 7 YEARS AGO [facility] Quit 1983Mar 10, 2005 10:47 AM HISTORY OF SMOKING ADITYA Gato [facility] 1983Mar 31, 2004 09:26 AM HISTORY OF SMOKING [facility]A [facility] Mar 31, 2004 09:26 AM QUIT TOBACCO USE > 7 YEARS AGO ADITYA MAXWELL Sivakumar [facility] Aug 22, 2001 01:30 PM HISTORY OF SMOKING [facility]A [facility] Advance Directives: All historical [...] 23, 2014 ADVANCE DIRECTIVE EYAL MONTILLA T [facility] Encounter Notes: All associated encounter notes This section contains the clinical notes associated to the Encounter. Date/Time Encounter Note(s) Provider Source Oct 30, 2020 04:17 PM PRIMARY CARE ADMINISTRATIVE NOTE: ERIC NUÑEZT LOCAL TITLE: Administrative Note/Primary Care [facility] STANDARD TITLE: PRIMARY CARE ADMINISTRATIVE NOTE DATE OF NOTE: OCT 30, 2020@16:17 ENTRY DATE: OCT 30, 2020@16:17:30 AUTHOR: ERIC NUÑEZ EXP COSIGNER: URGENCY: STATUS: COMPLETED Called to schedule RTC in [facility]. Left [place] a detailed msg to call back /chris/ ERIC NUÑEZ Engraver Pantograph Signed: 10/30/2020 16:18
--- OUTSIDE RECORDS SUMMARY | 2020-12-05 21:39 | XMS_ITS | Encounter Summary ---
:1945 Author Organization Department [facility] rs Address [address] [place] [id number] Care Team Providers Name Role Phone CHANDLER, [...] Number Dhillon ANTHEM PREFERRED BASIC May 17 [id number] [phone] OSCAR LITTLE P ATIENT [place] PROVIDER SELF 2002 22 [id number] AN (FEDERAL) ORGANIZAT ION (PPO) [place] PREFERRED BASIC May 17 [id number] [phone] OSCAR MACEDO PATIENT FEDERAL PROVIDER SELF 2002 22 4 AN ORGANIZAT ION (PPO) [place]ARK-F PRESCRIPT BCBS May 17, [id number] [phone] FR PASTRANAOSCAR PATIENT EP BCBS ION FEP 2010 0 [id number] AN PLAN MEDICARE MEDICARE PART Jan 15, PART A [id number] OSCAR LITTLE PATIENT (WNR) (M) A 2008 [id number] 2 AN Selected Encounter This section includes the information [facility] record at [facility]counter. Date/Time Encounter Type Encounter Description Reason Provider Source Aug 20, 2020 01:30 Outpatient Encounter CARDIOLOGY PM IHE Encounter Template Text not used [...] 20 appointments. The data comes from all [facility]. Appointment Date/Time Appointment Type Appointment Facili ty Name Aug 21, 2020 10:00 AM AM[place]ORY [place] [facility] Aug 21, 2020 11:00 AM AM[place] [facility] October 02, 2020 10:15 AM AMBULATORY - [place]IAT[place] [facility] October 09, 2020 01:00 PM AMBUL[place]ORY [place]IC[place] [facility] Oct 28, 2020 11:00 AM AMBULATORY - NONE [place] [facility] Nov 04, 2020 01:00 PM AMBUL[place]ORY - [place]RY [place] [facility] Nov 12, 2020 08:30 AM AMBULATORY - NONE [place] [facility] Nov 19, 2020 02:00 PM AM[place]UL[place]ORY - [place] [facility] Dec 05, 2020 08:00 AM AMBULATORY - NONE [place] [facility] Dec 11, 2020 12:00 PM AMBULATORY - [place]RY [place] [facility] Dec 23, 2020 11:00 AM [place] [facility] Dec 30, 2020 10:15 AM AMBULATORY - NONE [place] [facility] Jan 28, 2021 10:00 AM AMBULATORY - NONE [place] [facility] Active, Pending, and Scheduled Orders This section includes a listing of several types of active, pending, and scheduled orders, including clinic medications orders, diagnostic test orders, procedure orders and consult orders; where the start date of the order is 45 days before the date of the Encounter or 45 days after the date of the Encounter. The data comes from all [place] treatment facilities. Test Date/Time Test Type Test Details Facility Name Jul 29, 2020 12:57 PM Consult Order COMMUNITY CARE-COLONOSCOPY [place] [facility] SCREENING Cons Repeat Chief's Choice Social History: Smoking Status (Most current) and Tobacco Use (All prior to encounter date) This section includes the most current, and the historical, smoking and tobacco-related health factors from the [place] facility where the Encounter took place.Current Smoking Status This section includes the most current smoking, or tobacco-related health factor, from the [place] facility where the Encounter took place. Date/Time Current Smoking Status Comment Facility Apr 09, 2020 11:00 AM VA-TOBACCO FORMER USER [facility] [facility] Tobacco Use History This section includes a history of the smoking, or tobacco-related health factors, that were collected on or before the date of the Encounter. The data comes from the [place] facility where the Encounter took place. Date/Time Smoking Status/Tobacco Use Comment [facility] Apr 09, 2020 11:00 AM VA-TOBACCO QUIT 15 YRS OR MORE [place] [facility] Jan 14, 2018 03:08 PM VA-TOBACCO FOR[place] USER [place] [facility] Jan 14, 2018 03:08 PM VA-TOBACCO QUIT 15 YRS OR MORE [place] [facility] Mar 16, 2017 09:08 AM QUIT TOBACCO USE > 7 YEARS AGO [place] [facility] quit 1983Mar 04, 2016 10:28 AM QUIT TOBACCO USE > 7 YEARS AGO [place] [facility] Quit 1983Mar 10, 2005 10:47 AM HISTORY OF SMOKING [place] [facility] 1983Mar 31, 2004 09:26 AM HISTORY OF SMOKING [place] [facility] Mar 31, 2004 09:26 AM QUIT TOBACCO USE > 7 YEARS AGO [place] [facility] Aug 22, 2001 01:30 PM HISTORY OF SMOKING [place] [facility] Advance Directives: All historical and current Section Date Range: From patient's date of to the date document was created. This section includes ALL of a patient's completed or amended [place] Advance and Rescinded Directives. The entries below indicate that a directive exists for the patient, but an actual copy is not included with this document. The data comes from all [place] facilities. Date Advance Directives Provider Source Feb 23, 2014 ADVANCE DIRECTIVE EYAL MONTILLA [facility] Encounter Notes: All associated encounter notes This section contains the clinical notes associated to the Encounter. Date/Time Encounter Note(s) Provider Source Aug 20, 2020 03:37 PM NO SHOW NOTE: MARTHA JONES LOCAL TITLE: No Show/Cancelled Clinic Note [facility] STANDARD TITLE: NO SHOW NOTE DATE OF NOTE: AUG 20, 2020@15:37 ENTRY DATE: AUG 20, 2020@15:38:02 AUTHOR: MARTHA JONES EXP COSIGNER: URGENCY: STATUS: COMPLETED did not show for in person c linic but sent secure message that he was expecting a video appt this play writer's schedule stated in person visit i sent him message that he may want to reschedul e with new provider due to my impending custodial (I have met him only once) /es/ MARTHA JONES Nurse Practitioner Signed: 08/20/2020 15:39
--- OUTSIDE RECORDS SUMMARY | 2020-12-05 21:39 | XMS_ITS ---
:1945 Author Organization Department [facility] rs Address [address] [place] [address] Care Team Providers Name Role Phone CHANDLER, [...] Number Dhillon ANTHEM PREFERRED BASIC May 17 [id number] [phone] OSCAR LITTLE P ATIENT [place]BS [place] PROVIDER SELF 2002 22 [id number] AN (FEDERAL) ORGANIZAT ION (PPO) [place] PREFERRED BASIC May 17 [id number] [phone] OSCAR MACEDO PATIENT FEDERAL PROVIDER SELF 2002 22 4 AN ORGANIZAT ION (PPO) [place]-F PRESCRIPT BCBS May 17, [id number] [phone] FR ZEINAOSCAR PATIENT EP BCBS ION FEP 2010 0 [id number] 331 AN PLAN MEDICARE MEDICARE PART Jan 15, PART A [id number] SIDNEY OSCAR PATIENT (WNR) (M) A 2008 [id number] 2 AN Selected Encounter This section includes the information on record at [place] for the Encounter. Date/Time Encounter Type Encounter Reason Provider Source Description Dec 02, 2020 12:26 Outpatient PRIMARY BLACK,TAVIA PM Encounter CARE/MEDICINE [facility] Encounter Template Text not used by [place] Plan of Treatment: Future Appointments (+ 6 [...] 20 appointments. The data comes from all [facility]. Appointment Date/Time Appointment Type Appointment Facili ty Name Dec 05, 2020 08:00 AM AMBULATORY [place] [facility] [facility] Dec 11, 2020 12:00 PM AMBULATORY - [place]RY [place] [facility] Dec 23, 2020 11:00 AM AMBULATORY - REHAB MEDICINE [place] [facility] Dec 30, 2020 10:15 AM AMBUL[place]ORY - NONE [place] [facility] Jan 28, 2021 10:00 AM AMBULATORY - NONE [place] [facility] Feb 26, 2021 01:30 PM AMBULATORY - NONE [facility] Active, Pending, and Scheduled Orders [...] The data comes from all [place] treatment [facility]. Test Date/Time Test Type Test Details Facility Name Nov 26, 2020 12:00 AM Laboratory - Chemistry P4 [facility] Order [facility] GREEN(LI HEP) PLASMA SP Dec 30, 2020 10:15 AM Imaging - Magnetic MRI BRAIN W/WO WHITE R IVER [facility] Resonance Imaging (MRI) CONTRAST [facility] Order Social History: Smoking Status (Most current) [...] 09, 2020 11:00 AM VA-TOBACCO FORMER USER [facility] Tobacco Use History This section includes a history of the smoking, or tobacco-related health factors, that were collected on or before the date of the Encounter. The data comes from the [place] facility where the Encounter took place. Date/Time Smoking Status/Tobacco Use Comment Facil ity Apr 09, 2020 11:00 AM VA-TOBACCO QUIT 15 YRS OR MORE [facility] Jan 14, 2018 03:08 PM VA-TOBACCO FORMER USER [place] [facility] Jan 14, 2018 03:08 PM VA-TOBACCO QUIT 15 YRS OR MORE [facility] Mar 16, 2017 09:08 AM QUIT TOBACCO USE > 7 YEARS AGO [facility] quit 1983Mar 04, 2016 10:28 AM QUIT TOBACCO USE > 7 YEARS AGO [facility] Quit 1983Mar 10, 2005 10:47 AM HISTORY OF SMOKING [facility] [facility] 1983Mar 31, 2004 09:26 AM HISTORY OF SMOKING [place] [facility] Mar 31, 2004 09:26 AM QUIT TOBACCO USE > 7 YEARS AGO [facility] Aug 22, 2001 01:30 PM HISTORY OF SMOKING [place] [facility] Advance Directives: All historical and current Section Date Range: From patient's date of to the date document was created. This section includes ALL of a patient's completed or amended [place] Advance and Rescinded Directives. The entries below [...] Encounter. Date/Time Encounter Note(s) Provider Source Dec 02, 2020 12:26 PM PRIMARY CARE SECURE MESSAGING: TAVIA [place] [facility] LOCAL TITLE: PRIMARY CARE SECURE MESSAGING [facility] STANDARD TITLE: PRIMARY CARE SECURE MESSAGING DATE OF NOTE: DEC 02, 2020@12:26:05 ENTRY DATE: DEC 02, 2020@12:26:06 AUTHOR: TAVIA [place] EXP COSIGNER: URGENCY: STATUS: COMPLETED PRIMARY CARE SECURE MESSAGING Has ADDENDA ------Original Message Sent: 12/02/2020 12:03 PM From: KATHY LITTLE Gina To: Tevin ARTEAGA[facility] Subject: I put MRI on hold. Need Video with Keren Oh I want to discuss the merits of the MRI. Kathy Gina Sidney Patient /es/ TAVIA [place] MSN, RN Signed: 12/02/2020 12:26 Receipt Acknowledged By: 12/02/2020 12:43 /chris/ TOHSIA [place] Nurse Practitioner Resident * AWAITING SIGNATURE * MANNY ARTEAGA 12/02/2020 ADDENDUM STATUS: COMPLETED TC to pt to discuss recommended MRI and reviewed ENT's note again, Potential etiologies include vestibular schwannoma or othe r [employer] SOLUTIONS ARCHITECT injury, lesions, asymmetric acoustic trauma, ototoxic medications, cochlear hydrops, or Meniere's disease. Pt is ambivalent about getting the MRI with josephine ral concerns, including potential for kidney damage with contrast MRI in setting of chronic kidney disease, as well as what cou rse of action would be if a lesion were found on the brain. I recommended that though he has CKD, typically flushing the kidneys by staying well hydrated before and after MRI is safe. As f ar as outcomes of the MRI, a future plan would have to be developed based on the findings, and we are looking to rule out any concerning findings such as vest ibular schwannoma. He feels that the ENT recomm endation for MRI is tepid and would like to take 2 more weeks to research before going through with imaging. /chris/ TOSHIA [place] Nurse Practitioner Resident Signed: 12/02/2020 12:59 /chris/ Manny Arteaga MSN, COMPOSING MACHINE OPERATOR/TENDER Nurse Practitioner Faculty Cosigned: 12/02/2020 13:24
--- OUTSIDE RECORDS SUMMARY | 2020-12-05 21:40 | XMS_ITS | Encounter Summary ---
:1945 Author Organization Department [facility] rs Address [address] [place] [address] Care Team Providers Name Role Phone CHANDLER, [...] Number Dhillon ANTHEM PREFERRED BASIC May 17 [id number] [phone] OSCAR LITTLE P ATIENT [place] PROVIDER SELF 2002 22 [id number] AN (FEDERAL) ORGANIZAT ION (PPO) [place] PREFERRED BASIC May 17 [id number] [phone] OSCAR MACEDO PATIENT FEDERAL PROVIDER SELF 2002 22 4 AN ORGANIZAT ION (PPO) [place]-F PRESCRIPT BCBS May 17, [id number] [phone] FR OSCAR PASTRANA PATIENT EP BCBS ION FEP 2010 0 [id number] 331 AN PLAN MEDICARE MEDICARE PART Jan 15, PART A [id number] OSCAR LITTLE PATIENT (WNR) (M) A 2008 [id number] 2 AN Selected Encounter This section includes the information on record at [facility] for the Encounter. Date/Time Encounter Type Encounter Description Reason Provider Source Oct 28, 2020 12:00 Outpatient Encounter EVENT (HISTORICAL) AM [...] data comes from all [facility]. Appointment Date/Time Appointment Type Appointment Facili ty Name Nov 04, 2020 01:00 PM AMBULATORY [place] [facility] Nov 12, 2020 08:30 AM AM[place]ORY - NONE [place] [facility] Nov 19, 2020 02:00 PM AMBULATORY - REHAB MEDICINE [place] [facility] Dec 05, 2020 08:00 AM AMBULATORY - NONE [place] [facility] Dec 11, 2020 12:00 PM AMBULATORY - [place]CHIATRY [place] [facility] Dec 23, 2020 11:00 AM AMBULATORY - REHAB MEDICINE [place] [facility] Dec 30, 2020 10:15 AM AMBULATORY - NONE [place] [facility] Jan 28, 2021 10:00 AM AMBULATORY - NONE [place] [facility] Feb 26, 2021 01:30 PM AMBULATORY - NONE [place] [facility] Active, Pending, and Scheduled Orders This section includes a listing of several types of active, pending, and scheduled orders, including clinic medications orders, diagnostic test orders, procedure orders and consult orders; where the start date of the order is 45 days before the date of the Encounter or 45 days after the date of the Encounter. The data comes from all [facility]. Test Date/Time Test Type Test Details Facility Name October 09, 2020 01:31 PM Consult Order SLEEP CLINIC [place] OUTPATIENT Cons [facility] Sap Basis Administrator's Choice Nov 26, 2020 12:00 AM Laboratory - Chemistry [place]4 [place] Order GLU,BUN,CREAT,LYTES,CA [facility] LT GREEN(LI HEP) PLASMA SP Lab Results: [...] Reference Range Comment October 09, 2020 [place] MICROALBUMIN/CREATININE RATIO Specimen Type: URINE 12:19 PM [facility] PANEL Comment: Tests performed on Kohli Wrapp (405) SN:[id number] Ordering Provider: TOSHIA [place] Report Released Date/Time: Sep 05, 2020 04:22 PM Reporting Lab: [place] [facility] [address] [facility] [address] Performing Lab: [place] [facility] [address] [facility] [address] CREATININE (URINE,RANDOM) 178.0 mg/dL MICROALBUMIN, QUANTITATIVE 2.1 mg/dL 0.0 -29.9 MICROALBUMIN/CREATININE RATIO 11.8 mg/g 0.0-29.9 October 09, 2020 [place] P4 GLU,BUN,CREAT,LYTES,CA Specimen Type: PLASMA 12:18 PM [facility] Comment: Tests performed on Kohli Grinding Machine Operator Portable (405) SN:[id number] Ordering Provider: TOSHIA [place] Report Released Date/Time: Sep 05, 2020 03:18 PM Reporting Lab: [place] [facility] [address] [facility] [address] Performing Lab: [place] [facility] [address] [facility] [address] UREA NITROGEN 16 mg/dL 7-25 SODIUM 140 [...] FRACT. PANEL Comment: Tests performed on Kohli Wrapp (405) SN:[id number] Ordering Provider: TOSHIA [place] Report Released Date/Time: Sep 05, 2020 03:18 PM Reporting Lab: [place] [facility] [address] [facility] [address] Performing Lab: [place] [facility] [address] [facility] [address] CHOLESTEROL 119 mg/dL 0-199 TRIGLYCERIDE 131 mg/dL 0-149 HDL CHOLESTEROL 33 mg/dL L >40 LDL CHOLESTEROL (CALC) 60 mg/dl 0-129 October 09, 2020 12:18 PM [place] [facility] IRON+TIBC(P) Specimen Type: PLASMA Comment: Tests performed on Kohli Grinding Machine Operator Portable (405) SN:[id number] Ordering Provider: TOSHIA [place] Report Released Date/Time: Sep 05, 2020 04:22 PM Reporting Lab: [place] [facility] [address] [facility] [address] Performing Lab: [place] [facility] [address] [facility] [address] IRON 97 ug/dL 40-160 TIBC 332 ug/dL 204-475 IRON SATURATION(P) 29 % >15 October 09, 2020 12:18 PM [place] [facility] FERRITIN Specimen Type: SERUM Comment: Tests performed on Kohli Wrapp (405) SN:[id number] Ordering Provider: TOSHIA [place] Report Released Date/Time: Sep 05, 2020 04:22 PM Reporting Lab: [place] [facility] [address] [facility] [address] Performing Lab: [place] [facility] [address] [facility] [address] FERRITIN 267.2 ng/mL 20-300 October 09, 2020 12:18 PM [place] [facility] URIC ACID Specimen Type: PLASMA Comment: Tests performed on Kohli Wrapp (405) SN:[id number] Ordering Provider: TOSHIA [place] Report Released Date/Time: Sep 05, 2020 04:22 PM Reporting Lab: [place] [facility] [address] [facility] [address] Performing Lab: [place] [facility] [address] [facility] [address] URIC ACID 6.1 mg/dl 3.3-8.7 October 09, 2020 12:18 PM [place] [facility] ALBUMIN Specimen Type: PLASMA Comment: Tests performed on Kohli Grinding Machine Operator Portable (405) SN:[id number] Ordering Provider: TOSHIA [place] Report Released Date/Time: Sep 05, 2020 04:22 PM Reporting Lab: [place] [facility] [address] [facility] [address] Performing Lab: [place] [facility] [address] [facility] [address] ALBUMIN 3.9 g/dL 3.2-5.0 October 09, 2020 12:18 [place] VIT D 25-OH(J) Specimen Type: SERUM PM [facility] Comment: Tests performed on Kohli Grinding Machine Operator Portable (405) SN:[id number] Ordering Provider: TOSHIA [place] Report Released Date/Time: Sep 05, 2020 04:22 PM Reporting Lab: [place] [facility] [address] [facility] [address] Performing Lab: [place] [facility] [address] [facility] [address] VIT D 25-OH(J) 12.9 ng/mL L 20-50 October 09, 2020 12:18 [place] PTH-INTACT([facility]) Specimen Type: SERUM PM [facility] Comment: Tests performed on Kohli Wrapp (405) SN:[id number] Ordering Provider: TOSHIA [place] Report Released Date/Time: Sep 05, 2020 04:22 PM Reporting Lab: [place] [facility] [address] [facility] [address] [facility]forming Lab[facility] [address] [facility] [address] PTH-INTACT([facility]) 95.9 pg/mL H 8.7-77.1 October 09, 2020 12:18 [place] URINALYSIS W/REFLEX TO Specimen Type: URINE PM [facility] CULTURE No comment enter ed. Ordering Provider: TOSHIA [place] Report Released Date/Time: Sep 05, 2020 04:22 PM Reporting Lab: [place] [facility] [address] [facility] [address] Performing Lab: [place] [facility] [address] [facility] [address] URINE COLOR Yellow YELLOW SPECIFIC GRAVITY 1.018 1.003-1.030 UROBILINOGEN <2.0 mg/dL <2.0 URINE BILIRUBIN NEG NEG URINE KETONES NEG mg/dL NEG URINE GLUCOSE NEG mg/dL NEG PROTEIN, URINE 30 mg/dL NEG URINE PH 5.0 5-8 CLARITY HAZY Clear URINE BLOOD NEG NEG NITRITE, URINE NEG NEG WBC SCREEN NEG NEG October 09, 2020 12:18 PM [facility] UAMICROSCOPIC Specimen Type: URINE No comment enter ed. Ordering Provider: TOSHIA [place] Report Released Date/Time: Sep 05, 2020 04:22 PM Reporting Lab: [facility] [address] [facility] [address] Performing Lab: [facility] [address] [facility] [address] WHITE BLOOD CELL/URINE 5 /HPF 0-5 HYALINE [...] took place. Date/Time Current Smoking Status Comment [facility] Apr 09, 2020 11:00 AM VA-TOBACCO FORMER USER [facility] Tobacco Use History This section includes a history of the smoking, or tobacco-related health factors, that were collected on or before the date of the Encounter. The data comes from the [place] facility where the Encounter took place. Date/Time Smoking Status/Tobacco Use Comment [facility] Apr 09, 2020 11:00 AM VA-TOBACCO QUIT 15 YRS OR MORE [facility] Jan 14, 2018 03:08 PM VA-TOBACCO FORMER USER [place] C[place] [facility] Jan 14, 2018 03:08 PM VA-TOBACCO QUIT 15 YRS OR MORE [facility] Mar 16, 2017 09:08 AM QUIT TOBACCO USE > 7 YEARS AGO [facility] quit 1983Mar 04, 2016 10:28 AM QUIT TOBACCO USE > 7 YEARS AGO [facility] Quit 1983Mar 10, 2005 10:47 AM HISTORY OF SMOKING ADITYA [place] [facility] 1983Mar 31, 2004 09:26 AM HISTORY OF SMOKING ADITYA [place] [facility] Mar 31, 2004 09:26 AM QUIT TOBACCO USE > 7 YEARS AGO ADITYA JEFF [facility] Aug 22, 2001 01:30 PM HISTORY OF SMOKING ADITYA JEFF [facility] Advance Directives: All historical and current Section [...] Feb 23, 2014 ADVANCE DIRECTIVE EYAL MONTILLA [facility]
--- OUTSIDE RECORDS SUMMARY | 2020-12-05 21:40 | XMS_ITS ---
:1945 Author Organization Department [facility] Address [address] [place] [id number] Care Team Providers Name Role Phone MANNY [...] Number Dhillon ANTHEM PREFERRED BASIC May 17 [id number] [phone] OSCAR LITTLE P ATIENT [place]BS OF [place] PROVIDER SELF 2002 [id number] AN (FEDERAL) ORGANIZAT ION (PPO) [place] PREFERRED BASIC May 17 [id number] [phone] OSCAR MACEDO PATIENT FEDERAL PROVIDER SELF 2002 22 4 AN ORGANIZAT ION (PPO) [place]-F PRESCRIPT BCBS May 17 [id number] [phone] OSCAR PASTRANA PATIENT EP BCBS ION FEP 2010 [id number] AN PLAN MEDICARE MEDICARE PART Jan 15, PART A [id number] [id number] OSCAR LITTLE PATIENT (WNR) (M) A 2008 [id number] 2 AN Selected Encounter This section includes the information on record at [place] for the Encounter. Date/Time Encounter Type Encounter Reason Provider Source Description Oct 28, 2020 OFFICE O/P EST GERIPACT ICD-10-CM I10 KAR GRANADOS 11:00 AM MOD 30-39 MIN Essential E (primary) hypertension with Provider Comments: Benign essential hypertension (SCT 8418822) IHE Encounter Template Text not used by [facility] Assessments - Encounter Diagnoses This section includes the primary and secondary diagnoses documented forthe Encounter. Date/Time Primary/Secondary Diagnosis Name Provider Source Diagnosis Oct 28, 2020 PRIMARY Essential (primary) TOSHIA OH [place] 11:50 AM hypertension [place] [facility] Oct 28, 2020 SECONDARY Amaurosis fugax [place] 11:50 AM [place] [facility] Oct 28, 2020 SECONDARY Anxiety disorder, BLACK,TOSHIA [place]ITE [place] 11:50 AM unspecified [place] [facility] Oct 28, 2020 SECONDARY Bipolar disorder, BLACK,TOSHIA [place] 11:50 AM unspecified [place] [facility] Oct 28, 2020 SECONDARY Gastro-esophageal BLACKTOSHIA WHITE A[place] ER 11:50 AM reflux disease [place] [facility] without esophagitis Oct 28, 2020 SECONDARY Hyperlipidemia, BLACK,TOSHIA [place] 11:50 AM unspecified [place] [facility] Oct 28, 2020 SECONDARY Major depressive BLACK,TOSHIA [place] 11:50 AM disorder, single [place] [facility] episode, unspecified Oct 28, 2020 SECONDARY Obstructive sleep BLACKTOSHIA WHITE AY[place] ER 11:50 AM apnea (adult) [place] [facility] (pediatric) Oct 28, 2020 SECONDARY Other dysphagia [place]IA [place] 11:50 AM [place] [facility] Oct 28, 2020 SECONDARY Other obesity due BLACK,TOSHIA WHITE AY[place] ER 11:50 AM to excess calories [place] [facility] Oct 28, 2020 SECONDARY Unspecified asthma, BLACK,TOSHIA WHITE [place] 11:50 AM uncomplicated [place] [facility] Plan of Treatment: Future [...] appointments. The [facility] [place] [facility] Appointment Date/Time Appointment Type Appointment Facili ty Name Nov 04, 2020 01:00 PM AMBULATORY - PSYCHIATRY ADITYA PRITCHARD T [facility] Nov 12, 2020 08:30 AM AMBULATORY - NONE ADITYA [facility] Nov 19, 2020 02:00 PM AMBULATORY - REHAB MEDICINE ADITYA PRITCHARDT [facility] Dec 05, 2020 08:00 AM AMBULATORY - NONE ADITYA PRITCHARDT [facility] Dec 11, 2020 12:00 PM AMBULATORY - PSYCHIATRY ADITYA PRITCHARD T [facility] Dec 23, 2020 11:00 AM AMBULATORY - REHAB MEDICINE [place] [facility] Dec 30, 2020 10:15 AM AMBULATORY - NONE [place] [facility] Jan 28, 2021 10:00 AM AMBULATORY - NONE [place] [place] [facility] Feb 26, 2021 01:30 PM AMBULATORY - NONE [place] [facility] Active, Pending, and Scheduled Orders This section [...] PM Consult Order SLEEP CLINIC ADITYA Hoskins [facility] OUTPATIENT Cons [facility] Glass Melt Operator's Choice Nov 26, 2020 12:00 AM Laboratory - Chemistry P4 [facility] HANNA JEFF Order GLU,BUN,CREAT,LYTES,CA [facility] LT GREEN(LI HEP) PLASMA SP Lab Results: [...] Interpretation Reference Range Comment October 09, 2020 ADITYA PRITCHARD MICROALBUMIN/CREATININE RATIO Specimen Type: URINE 12:19 PM [facility] PANEL Comment: Tests performed on [employer] (405) SN:[id number] Ordering Provider: TOSHIA OH Report Released Date/Time: Sep 05, 2020 04:22 PM Reporting Lab: ADITYA ARREOLA [facility] [address] [address] Performing Lab: [facility] [address] [address] CREATININE (URINE,RANDOM) 178.0 mg/dL MICROALBUMIN, QUANTITATIVE 2.1 mg/dL 0.0 -29.9 MICROALBUMIN/CREATININE RATIO 11.8 mg/g 0.0-29.9 October 09, 2020 [facility] P4 GLU,BUN,CREAT,LYTES,CA Specimen Type: PLASMA 12:18 PM [facility] Comment: Tests performed on [email or web address] (405) SN:[id number] Ordering Provider: TOSHIA OH Report Released Date/Time: Sep 05, 2020 03:18 PM Reporting Lab: [facility] [address] [address] Performing Lab: [facility] [address] [address] UREA NITROGEN 16 mg/dL 7-25 SODIUM 140 mmol/L 135-145 POTASSIUM 4.3 mmol/L 3.5-5.0 CHLORIDE 106 mmol/L 100-110 CARBON DIOXIDE 23 mmol/L 20-30 ANION GAP 11 mmol/L 4-16 GLUCOSE 97 mg/dL 65-100 CREATININE 1.23 mg/dl 0.5-1.5 CALCIUM 9.8 mg/dL 8.5-10.5 eGFR 57 mL/min L >60 October 09, 2020 12:18 [facility] LIPOPROTEIN CHOLESTEROL Specimen Type: PLASMA PM [facility] FRACT. PANEL Comment: Tests performed on [email or web address] (405) SN:[id number] Ordering Provider: TOSHIA OH Report Released Date/Time: Sep 05, 2020 03:18 PM Reporting Lab: [facility] [address] [address] Performing Lab: [facility] [address] [address] CHOLESTEROL 119 mg/dL 0-199 TRIGLYCERIDE 131 mg/dL 0-149 HDL CHOLESTEROL 33 mg/dL L >40 LDL CHOLESTEROL (CALC) 60 mg/dl 0-129 October 09, 2020 12:18 PM [facility] IRON+TIBC(P) Specimen Type: PLASMA Comment: Tests performed on [email or web address] (405) SN:[id number] Ordering Provider: TOSHIA OH Report Released Date/Time: Sep 05, 2020 04:22 PM Reporting Lab: [place] [facility] [address] [address] Performing Lab: [place] [facility] [address] [address] IRON 97 ug/dL 40-160 TIBC 332 ug/dL 204-475 IRON SATURATION(P) 29 % >15 October 09, 2020 12:18 PM [place] [facility] FERRITIN Specimen Type: SERUM Comment: Tests performed on [employer] (405) SN:[id number] Ordering Provider: TOSHIA OH Report Released Date/Time: Sep 05, 2020 04:22 PM Reporting Lab: [place] [facility] [address] [address] Performing Lab: [place] [facility] [address] [address] FERRITIN 267.2 ng/mL 20-300 October 09, 2020 12:18 PM [place] [facility] URIC ACID Specimen Type: PLASMA Comment: Tests performed on [email or web address] (405) SN:[id number] Ordering Provider: TOSHIA OH Report Released Date/Time: Sep 05, 2020 04:22 PM Reporting Lab: [place] [facility] [address] [address] Performing Lab: [place] [facility] [address] [address] URIC ACID 6.1 mg/dl 3.3-8.7 October 09, 2020 12:18 PM [facility] ALBUMIN Specimen Type: PLASMA Comment: Tests performed on [email or web address] (405) SN:[id number] Ordering Provider: TOSHIA OH Report Released Date/Time: Sep 05, 2020 04:22 PM Reporting Lab: [place] [facility] [address] [address] Performing Lab: [place] [facility] [address] [address] ALBUMIN 3.9 g/dL 3.2-5.0 October 09, 2020 12:18 [place] VIT D 25-OH([facility]) Specimen Type: SERUM PM [facility] Comment: Tests performed on [email or web address] (405) SN:[id number] Ordering Provider: TOSHIA OH Report Released Date/Time: Sep 05, 2020 04:22 PM Reporting Lab: [facility] [address] [address] Performing Lab: [facility] [address] [address] VIT D 25-OH(J) 12.9 ng/mL L 20-50 October 09, 2020 12:18 [facility]) Specimen Type: SERUM PM [facility] Comment: Tests performed on [employer] (405) SN:[id number] Ordering Provider: TOSHIA OH Report Released Date/Time: Sep 05, 2020 04:22 PM Reporting Lab: [facility] [address] [address] Performing Lab: [facility] [address] [address] PTH-INTACT([facility]) 95.9 pg/mL H 8.7-77.1 October 09, 2020 12:18 [facility] URINALYSIS W/REFLEX TO Specimen Type: URINE PM [facility] CULTURE No comment enter ed. Ordering Provider: TOSHIA OH Report Released Date/Time: Sep 05, 2020 04:22 PM Reporting Lab: [facility] [address] [address] Performing Lab: [facility] [address] [address] URINE COLOR Yellow YELLOW SPECIFIC GRAVITY 1.018 1.003-1.030 UROBILINOGEN <2.0 mg/dL <2.0 URINE BILIRUBIN NEG NEG URINE KETONES NEG mg/dL NEG URINE GLUCOSE NEG mg/dL NEG PROTEIN, URINE 30 mg/dL NEG URINE PH 5.0 5-8 CLARITY HAZY Clear URINE BLOOD NEG NEG NITRITE, URINE NEG NEG WBC SCREEN NEG NEG October 09, 2020 12:18 PM [facility] Specimen Type: URINE No comment enter ed. Ordering Provider: TOSHIA OH Report Released Date/Time: Sep 05, 2020 04:22 PM Reporting Lab: [facility] [address] [address] Performing [facility]: [facility] [address] [address] WHITE BLOOD CELL/URINE 5 /HPF 0-5 HYALINE [...] 11:00 AM VA-TOBACCO FORMER USER Yue [facility] Tobacco Use History This section includes a history of the smoking, or tobacco-related health factors, that were collected on or before the date of the Encounter. The data comes from the [place] facility where the Encounter took place. Date/Time Smoking Status/Tobacco Use Comment [facility] Apr 09, 2020 11:00 AM VA-TOBACCO QUIT 15 YRS OR MORE ADITYA ARREOLA T [facility] Jan 14, 2018 03:08 PM VA-TOBACCO FORMER USER [place] [facility] T [facility] Jan 14, 2018 03:08 PM VA-TOBACCO QUIT 15 YRS OR MORE ADITYA ARREOLA T [facility] Mar 16, 2017 09:08 AM QUIT TOBACCO USE > 7 YEARS AGO ADITYA ARREOLA T [facility] quit 1983Mar 04, 2016 10:28 AM QUIT TOBACCO USE > 7 YEARS AGO ADITYA ARREOLA T [facility] Quit 1983Mar 10, 2005 10:47 AM HISTORY OF SMOKING WHITE R IV[place] T [facility] 1983Mar 31, 2004 09:26 AM HISTORY OF SMOKING [place] [facility] Mar 31, 2004 09:26 AM QUIT TOBACCO USE > 7 YEARS AGO [place] [facility] Aug 22, 2001 01:30 PM HISTORY OF SMOKING [place] [facility] Advance Directives: [...] Feb 23, 2014 ADVANCE DIRECTIVE EYAL MONTILLA [place] [facility] Encounter Notes: All associated encounter notes This section contains the clinical notes associated to the Encounter. Date/Time Encounter Note(s) Provider Source Oct 28, 2020 10:35 AM TELEHEALTH NOTE: TOSHIA [place] LOCAL TITLE: VIDEO-CONNECT NOTE [facility] STANDARD TITLE: TELEHEALTH NOTE DATE OF NOTE: OCT 28, 2020@10:35 ENTRY DATE: OCT 25, 2020@12:12:26 AUTHOR: TOSHIA OH EXP COSIGNER: KAR GRANADOS URGENCY: STATUS: COMPLETED VIDEO-CONNECT NOTE Has ADDENDA Berwind seen the [facility] Video Connect: [X] Provider confirmed that is currently located at the following address listed in their CPRS chart. [address] [place] [address] [phone] e-911: Call [phone] to speak with an agent who can put you in touch with a landfill gas collection operator at the Patient's location. Y ou must have the physical location (address) where the Patient is currentl y located. Verbal informed consent has been obtained. The p atient has been provided with a full explanation of the risks and benefit s of Tele Health. SUBJECTIVE: cc: waiting for sleep study HPI: 75 year old MALE, pmh significant f or bipolar disorder, anxiety, JAY JAY, CKD stage 3, asthma, prostate ca, obesity, e pisode amaurosus fugax 06/2020 presents for chronic disease maintenance. #HTN On lisinopril 5mg, rosuvastatin 40mg, asa 325mg Denies chest pain, pressure, palpitations, light headedness, orthopnea, DELONG BPs at home: 103-117/66-70 today Cardiology saw 10/09/20- rtc prn #Amarosus fugax No further episodes. Vision is worsening but not acutely. Saw eye clinic in July and said he was doing ok #Intermittent difficulty swallowing #GERD Having heartburn at night, mostly when eating to o close to bedtime. Takes famotidine prn twice a week and this helps some. Not happening when eating 4p. Feels like food isn't fully going down. Not ever y time, typically with bigger bites of solid foods. No issues drinking fluids. No pain or coughing with swallowing. #Obesity Lost ~5lb since last visit trying to eat healthi er, following recs given in recent letters. Trying to ea t more veggies. Some difficulty identifying healthy things to eat- hasn't been into cooking most of his life, tends towards frozen dinners Interested in nutrition consult- will place c/s Tried Move! intro session in [place], not a fa n of the group aspect. Will think some more about healthy kitchen Walking out to the yard a few times a day. [place] and will try working up to 1 mile #Asthma/SOB Sometimes forgets to breathe, will get up and ta ke deeper breaths this helps. Not SOB, cough, chest tightn ess. Not taking Symbicort currently, has nearby for prn use. #Bipolar/depression Back on sertraline 100mg, seems to be doing well on higher dose- continues to follow with psychiatry. Declines lamictal, mo od feeling stable ROS: Gen: Sleeps ok, 12 hr, napping during day. Fair energy, appetite good. ~5 lb weight loss, intentional- eating better more yasir ads, less sweets. Denies fever/chills/weakness HEENT: Denies headaches, sinus pain/pressure, PN D, ear pain, sore throat Resp: Denies SOB, dyspnea, cough CV: Denies chest pain or pressure, palpitations, lightheadedness, DELONG GI: see HPI : No complaints urinary frequency, urgency, in continence MSK: Denies joint pain, myalgias, swelling/redne ss of joints or extremities Neuro: Denies numbness, tingling, weakness, poor gait/balance PSYCH: Feels safe at home. Denies anxiety. Denie s feeling down, depressed or hopeless. Denies loss of interest or pleasure in previously enjoyable activities. Denies SI/HI -Mood feels stable, not feeling ups/downs Social History: Smoking: [] yes [x] no ETOH: [] yes [x] no Rec drugs: [] yes [x] no Caffeine: [x] yes [] no 5 cups/day (low or no caff) Activity: Out to the mailbox/out front a few serina es a day. [place] Drives: Yes, not much, tries not to- to grocery store etc. Denies near misses or accidents. Diet: Has been eating packaged salads from [employer] store in effort to eat healthier and has been feeling clearer with this . 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 Bipolar disorder 22. Paranoia 23. Hyperlipidemia MEDS: Active Outpatient Medications (excluding Supplie s): Active Outpatient Medications Status 1) BUDESONIDE 80/FORMOTER 4.5MCG 120D INH INHA LE 2 PUFFS ACTIVE BY MOUTH TWICE A DAY FOR BREATHING/RINSE MOUTH WITH WATER,SWISH AROUND AND SPIT OUT AFTER USI NG INHALER --Not taking 2) CHOLECALCIF 25MCG (D3-1,000UNIT) TAB TAKE O NE TABLET ACTIVE BY MOUTH EVERY DAY --Taking 3) KETOCONAZOLE 2% SHAMPOO SHAMPOO SMALL AMOUN T ACTIVE TOPICALLY ON MONDAYS AND THURSDAYS --Taking 4) LAMOTRIGINE 25MG TAB TAKE ONE TABLET BY ALBINA EVERY ACTIVE DAY FOR 14 DAYS, THEN TAKE TWO TABLETS EV --Not taking. Never started when sent by psychShijiebangt on 08/21/20 5) LISINOPRIL 5MG TAB TAKE ONE TABLET BY MOUTH EVERY DAY ACTIVE TO CONTROL BLOOD PRESSURE --Taking 6) POLYETHYLENE GLYCOL 3350 ORAL PWDR TAKE 1 C APFUL (17 ACTIVE GRAMS) BY MOUTH EVERY DAY , DISSOLVED IN 4 TO 8 OZ. CLEAR LIQUID / FOR CONSTIPATION --Taking 7) ROSUVASTATIN CA 40MG TAB TAKE ONE TABLET BY MOUTH ACTIVE EVERY DAY TO LOWER CHOLESTEROL --Taking 8) SERTRALINE HCL 50MG TAB TAKE THREE TABLETS BY MOUTH ACTIVE EVERY DAY FOR DEPRESSION OR ANXIETY --Taking, 100mg not 150 Active Non-VA Medications Status 1) Non-VA ASPIRIN 325MG TAB 325MG BY MOUTH ACTIVE --Taking 9 Total Medications ALLERGIES: Patient has answered NKA OBJECTIVE: Not full exam due to video visit reads BP from this mornin/66 PHYSICAL EXAM GEN: Well-appearing, well nourished and hydrated . Appropriately dressed and groomed. Calm, cooperative, pleasant demeanor. A ppears comfortable, in no apparent distress. HEENT: Normocephalic. PERRLA. EOM intact. Hearin g grossly intact to conversation. Nares not flaring. PULM: Respirations non-labored, speaking comfort ably in complete sentences NEURO: A+Ox3. CN II-XII grossly intact MSK: Ambulates independently with coordinated an d steady gait, walks over to window. PSYCH: Appropriate affect and demeanor. Maintain s eye contact. Normal speech pattern, linear thought process. ASSESSMENT/PLAN: #HTN #HLD At goal today with BPs in good range. On full statin #Obesity Weight down 5#- congratulated! Avoiding baked goods and trying to increase the veggies. Nutrition consult placed, suggest healt hy kitchen again. Discussed increasing exercise with cardiovasc an d weight benefit- goal 1 mile Encouraged to keep working on balance exercises provided by PT #Difficulty swallowing Discussed chewing well, smal ler bites, double swallowing for solids before next bite. Liquids with meals, before and after solid bites. He agrees to try. Not concerned for aspiration or acute worsening- adv ised to f/u if not improving. #GERD Discussed trigger avoidance (fatty meals, mint, chocolate, caffeine) and lifestyle mod (eating earlier, upright at least 30-60 min after eating). Reassuring that symptoms not present when eating earlier, not persistent. Famotidine up to BID prn use, call if worsening could consider PPI again but seems liKE h2 jesu doing well so far #Bipolar d/o #Depression Following with , has [facility] v isit this month. Per her prior note aware not taking lamictal and d/c'd from med list. #Continuous Health Monitoring/Prevention Sigmoid/colo due: scheduled locally for 2020 AAA: ruled out 2012 Screening >65 yo: Mini-Cog next visit on [facility] Counseling reviewed: Diet, exercise, fall safety , mental health resources Immunizations: Up to date [] , Pneumovax [], tetanus [due 03/06], flu vaccine [], Shingrix [], Covid [getting @ [facility] 07/05] Depression screen: []neg [x]pos Eye exam: [x] yes [] no 07/19/20 Dental exam [] yes [] no last next AD, LST: on file, not discussed today Reviewed: Medication/treatment benefits/risks/si de effects/monitoring Side effects from medications [x] yes [] no Visit: 33 min RTC: F/u f2f in 6 months or prn -tdap and flu shot with this visit Labs (14 Days) No data available CLINICAL REMINDERS Follow Up Colonoscopy: Colonoscopy is due based on information christie loja to this reminder. Patient has arranged or is choosin g to arrange a Colonoscopy independent of and w/out assistance from this [facility]. has scheduled nonVA in January 2021- w ill send records Info Only: [facility] Video Connect Capable: [facility] Modality: [facility] ([facility]): is using their OWN technology to connect for videoconferencing. Use [employer] STUDENT DEVELOPMENT DEAN (Language Learning Class) t o create an email link that is sent to both provider and Computer with webcam/microphone COVID-19 Immunization: Moderna COVID-19 Vaccine given previously Patient received a prior dose of the Moderna COVID-19 Vaccine. Date: July 05, 2020 Location: [facility] Patient received a prior dose of the Moderna COVID-19 Vaccine. Date: August 02, 2020 Location: [facility] Medication Reconciliation: Outpatient: Has the patient been taking medications as documented in the EMLR? No: Discrepencies were identified. See bel ow. Essential Medication List for Review used to complete this medication reconciliation. INCLUDED IN THIS LIST: Alphabetical list o f active outpatient prescriptions dispensed from this [place] (loca l) and dispensed from another VA or DoD facility (remote) as well as inp atient orders (local, pending and active), local clinic medications, loc ally documented non-VA medications, and local prescriptions that have or been discontinued in the past 90 days. - Discrepancies were identified, addressed , and discussed with the patient/caregiver at this encounter. Discrepancies: taki ng sertraline 100mg, and not taking lamictal. edited - All changes in medic ations, including [...] /chris/ TOSHIA OH Nurse Practitioner Resident Signed: 10/28/2020 11:53 /chris/ Kar Granados, MSN, [employer] Nurse Practitioner Faculty Cosigned: 10/28/2020 13:30 10/28/2020 ADDENDUM STATUS: COMPLETED I was available to the resident during this [facility] patient encounter and have discussed management with e resident. I reviewed the resident's note and agree with the documented plan of care. /chris/ Kar Granados MSN, [employer] Nurse Practitioner Faculty Signed: 10/28/2020 15:26
--- OUTSIDE RECORDS SUMMARY | 2020-12-05 21:40 | XMS_ITS | Encounter Summary ---
:1945 Author Organization Department [facility] Address [address] [place] [address] Care Team Providers Name Role Phone MANNY [...] Number Dhill[place] ANTHEM PREFERRED BASIC May 17 [id number] [phone] OSCAR LITTLE P ATIENT [place] PROVIDER SELF 2002 [id number] AN (FEDERAL) ORGANIZAT ION (PPO) [place] PREFERRED BASIC May 17 [id number] [phone] OSCAR MACEDO PATIENT FEDERAL PROVIDER SELF 2002 22 4 AN ORGANIZAT ION (PPO) [place]-F PRESCRIPT BCBS May 17 [id number] [phone] OSCAR PASTRANA PATIENT EP BCBS ION FEP [phone] AN PLAN MEDICARE MEDICARE PART Jan 15, PART A [id number] OSCAR LITTLE PATIENT (WNR) (M) A 2008 [id number] 2 AN Selected Encounter This section includes the information on record at [place] for the Encounter. Date/Time Encounter Type Encounter Reason Provider Source Description Nov 04, 2020 OFFICE O/P EST MENTAL HEALTH ICD-10-CM F32.9 NATASHA ARCE AIR 01:00 PM LOW 20-29 MIN CLINIC - IND Major depressive E L disorder, single episode, unspecified with Provider Comments: Major Depressive Disorder, single Episode, unspecified IHE Encounter Template Text not used by [facility] Assessments - Encounter Diagnoses This section includes the primary and secondary diagnoses documented forthe Encounter. Date/Time Primary/Secondary Diagnosis Name Provider Source Diagnosis Nov 04, 2020 PRIMARY Major depressive LUIS CARLOS ARCE JAKUB 01:50 PM disorder, single L T [facility] episode, unspecified Nov 04, 2020 SECONDARY Alcohol LUIS CARLOS ARCE 01:50 PM dependence, [facility] [place] [facility] Nov 04, 2020 SECONDARY jail LUIS CARLOS ARCE 01:50 PM (current) use of [place] [facility] aspirin Plan of Treatment: Future Appointments (+ [...] data comes from all [facility]. Appointment Date/Time Appointment Type Appointment Facili ty Name Nov 12, 2020 08:30 AM AMBULATORY - N[place] [facility] Nov 19, 2020 02:00 PM [place] [facility] Dec 05, 2020 08:00 AM AMBULATORY - NONE [place] [facility] Dec 11, 2020 12:00 PM AM[place]ULAT[place] - [place]RY [place] [facility] Dec 23, 2020 11:00 AM [place] [facility] Dec 30, 2020 10:15 AM AMBULATORY - NONE [place] [facility] Jan 28, 2021 10:00 AM AMBULATORY - NONE [place] [facility] Feb 26, 2021 01:30 PM AMBULATORY - NONE [place] [facility] Active, Pending, and Scheduled Orders This section [...] PM Consult Order SLEEP CLINIC ADITYA [place] OUTPATIENT Cons [facility] Flight Attendant Inflight Services's Choice Nov 26, 2020 12:00 AM Laboratory - Chemistry P4 [facility] Order GLU,BUN,CREAT,LYTES,CA [facility] LT GREEN(LI HEP) PLASMA SP Lab Results: [...] Reference Range Comment October 09, [address] [facility] MICROALBUMIN/CREATININE RATIO Specimen Type: URINE 12:19 PM [facility] PANEL Comment: Tests performed on Kohli iMapData (405) SN:[id number] Ordering Provider: TOSHIA OH Report Released Date/Time: Sep 05, 2020 04:22 PM Reporting [facility] [address] [facility] [address] Performing Lab: [facility] [address] [facility] [address] CREATININE (URINE,RANDOM) 178.0 mg/dL MICROALBUMIN, QUANTITATIVE 2.1 mg/dL 0.0 -29.9 MICROALBUMIN/CREATININE RATIO 11.8 mg/g 0.0-29.9 October 09, 2020 [facility] P4 GLU,BUN,CREAT,LYTES,CA Specimen Type: PLASMA 12:18 PM [facility] Comment: Tests performed on [employer] [facility] (405) SN:[id number] Ordering Provider: TOSHIA OH Report Released Date/Time: Sep 05, 2020 03:18 PM Reporting [facility] [address] [place] [facility] [place] [address] Performing Lab: [facility] [address] [facility] [address] UREA NITROGEN 16 mg/dL 7-25 SODIUM 140 mmol/L 135-145 POTASSIUM 4.3 mmol/L 3.5-5.0 CHLORIDE 106 mmol/L 100-110 CARBON DIOXIDE 23 mmol/L 20-30 ANION GAP 11 mmol/L 4-16 GLUCOSE 97 mg/dL 65-100 CREATININE 1.23 mg/dl 0.5-1.5 CALCIUM 9.8 mg/dL 8.5-10.5 eGFR 57 mL/min L >60 October 09, 2020 12:18 [facility] LIPOPROTEIN CHOLESTEROL Specimen Type: PLASMA PM [facility] FRACT. PANEL Comment: Tests performed on Kohli iMapData (405) SN:[id number] Ordering Provider: TOSHIA OH Report Released Date/Time: Sep 05, 2020 03:18 PM Reporting Lab: [facility] [address] [facility] [address] Performing Lab: [facility] [address] [facility] [address] CHOLESTEROL 119 mg/dL 0-199 TRIGLYCERIDE 131 mg/dL 0-149 HDL CHOLESTEROL 33 mg/dL L >40 LDL CHOLESTEROL (CALC) 60 mg/dl 0-129 October 09, 2020 12:[address] [facility] IRON+TIBC(P) Specimen Type: PLASMA Comment: Tests performed on Kohli iMapData (405) SN:[id number] Ordering Provider: TOSHIA OH Report Released Date/Time: Sep 05, 2020 04:22 PM Reporting Lab: [facility] [address] [facility] [address] Performing Lab: [facility] [address] [facility] [address] IRON 97 ug/dL 40-160 TIBC 332 ug/dL 204-475 IRON SATURATION(P) 29 % >15 October 09, 2020 12:[address] [facility] FERRITIN Specimen Type: SERUM Comment: Tests performed on Kohli iMapData (405) SN:[id number] Ordering Provider: TOSHIA OH Report Released Date/Time: Sep 05, 2020 04:22 PM Reporting Lab: [facility] [address] [facility] [address] Performing Lab: [facility] [address] [facility] [address] FERRITIN 267.2 ng/mL 20-300 October 09, 2020 12:[address] [facility] URIC ACID Specimen Type: PLASMA Comment: Tests performed on [employer] [facility] (405) SN:[id number] Ordering Provider: TOSHIA OH Report Released Date/Time: Sep 05, 2020 04:22 PM Reporting Lab: [facility] [address] [facility] [address] Performing Lab: [place] [facility] [address] [place] [facility] [place] [address] URIC ACID 6.1 mg/dl 3.3-8.7 October 09, 2020 12:18 PM [place] [facility] ALBUMIN Specimen Type: PLASMA Comment: Tests performed on [employer] [facility] (405) SN:[id number] Ordering Provider: TOSHIA OH Report Released Date/Time: Sep 05, 2020 04:22 PM Reporting Lab: [facility] [address] [facility] [address] Performing Lab: [facility] [address] [facility] [address] ALBUMIN 3.9 g/dL 3.2-5.0 October 09, 2020 12:18 [place] VIT D 25-OH(J) Specimen Type: SERUM PM [facility] Comment: Tests performed on [employer] [facility] (405) SN:[id number] Ordering Provider: TOSHIA OH Report Released Date/Time: Sep 05, 2020 04:22 PM Reporting Lab: [place] [facility] [address] [place] [facility] [place] [address] Performing Lab: [facility] [address] [facility] [address] VIT D 25-OH(J) 12.9 ng/mL L 20-50 October 09, 2020 12:18 [place] PTH-INTACT(J) Specimen Type: SERUM PM [facility] Comment: Tests performed on [employer] [facility] (405) SN:[id number] Ordering Provider: TOSHIA OH Report Released Date/Time: Sep 05, 2020 04:22 PM Reporting Lab: [place] [facility] [address] [place] [facility] [place] [address] Performing Lab: [place] [facility] [address] [place] [facility] [place] [address] PTH-INTACT(J) 95.9 pg/mL H 8.7-77.1 October 09, 2020 12:18 [facility] URINALYSIS W/REFLEX TO Specimen Type: URINE PM [facility] CULTURE No comment enter ed. Ordering Provider: TOSHIA OH Report Released Date/Time: Sep 05, 2020 04:22 PM Reporting Lab: [facility] [address] [facility] [address] Performing Lab: [facility] [address] [facility] [address] URINE COLOR Yellow YELLOW SPECIFIC GRAVITY 1.018 1.003-1.030 UROBILINOGEN <2.0 mg/dL <2.0 URINE BILIRUBIN NEG NEG URINE KETONES NEG mg/dL NEG URINE GLUCOSE NEG mg/dL NEG PROTEIN, URINE 30 mg/dL NEG URINE PH 5.0 5-8 CL[place]ITY [place]Y Clear URINE BLOOD NEG NEG NITRITE, URINE NEG NEG WBC SCREEN NEG NEG October 09, 2020 12:18 PM [facility] UAMICROSCOPIC Specimen Type: URINE No comment enter ed. Ordering Provider: TOSHIA OH Report Released Date/Time: Sep 05, 2020 04:22 PM Reporting Lab: [facility] [address] [facility] [address] Performing Lab: [facility] [address] [facility] [address] WHITE BLOOD CELL/URINE 5 /HPF 0-5 HYALINE [...] took place. Date/Time Current Smoking Status Comment [facility] Apr 09, 2020 11:00 AM [place]-TOBACCO FORMER USER [facility] Tobacco Use History This section includes a history of the smoking, or tobacco-related health factors, that were collected on or before the date of the Encounter. The data comes from the [place] facility where the Encounter took place. Date/Time Smoking Status/Tobacco Use Comment [facility] Apr 09, 2020 11:00 AM VA-TOBACCO QUIT 15 YRS OR MORE ADITYA ARREOLA [facility] Jan 14, 2018 03:08 PM VA-TOBACCO FORMER USER [place] HANNA ARREOLA [facility] Jan 14, 2018 03:08 PM VA-TOBACCO QUIT 15 YRS OR MORE ADITYA ARREOLA [facility] Mar 16, 2017 09:08 AM QUIT TOBACCO USE > 7 YEARS AGO ADITYA ARREOLA T [facility] quit 1983Mar 04, 2016 10:28 AM QUIT TOBACCO USE > 7 YEARS AGO ADITYA ARREOLA T [facility] Quit 1983Mar 10, 2005 10:47 AM HISTORY OF SMOKING [place] [facility] 1983Mar 31, 2004 09:26 AM HISTORY OF SMOKING [place] IVER T [facility] Mar 31, 2004 09:26 AM QUIT TOBACCO USE > 7 YEARS AGO ADITYA ARREOLA [facility] Aug 22, 2001 01:30 PM HISTORY OF SMOKING [place] IVER [facility] Advance Directives: All historical and current Section Date Range: From patient's date of to the date document was created. This section includes ALL of a patient's completed or amended [place] Advance and Rescinded Directives. The entries below [...] Encounter. Date/Time Encounter Note(s) Provider Source Nov 04, 2020 01:04 PM MENTAL HEALTH OUTPATIENT NOTE: NATASHA ARCE ADITYA [facility]REOL[facility] LOCAL TITLE: [facility] Note [facility] STANDARD TITLE: MENTAL HEALTH OUTPATIENT NOTE DATE OF NOTE: NOV 04, 2020@13:04 ENTRY DATE: NOV 04, 2020@13:04:26 AUTHOR: LUIS CARLOS ARCE EXP COSIGNER: URGENCY: STATUS: COMPLETED PMHC PSYCHIATRIST NOTE - VVC confimred he is at home address FOLLOW UP VISIT FOR [facility] SEEN BY A PRESCRIBE R TIME SPENT WITH PATIENT (minutes): 23 min PCP: MANNY ARTEAGA 6 E *WH* CHIEF COMPLAINT: not depressed at all BAD HISTORY of PRESENT ILLNESS: - notes that he is no longer depressed - daughter visits twice a month - brother also visits twice a month - feels less isolated - tolerating sertraline reduction to 100 mg - he continues to have loose multiple times per day but it's not occuring QOD instead of daily - never took lamictal - sleeps 12 hours per night - repeat sleep study is in the works, but notes he has no trouble if he side- sleeps - drowsy in the daytime, usually naps - gets out of the house daily - able to enjoy life RELEVANT CURRENT STRESSORS: UPDATES SINCE LAST V ISIT ONLY See previous notes for more complete history SIGNIFICANT PAST PSYCHIATRIC HISTORY: See previous notes for history MEDICAL HISTORY: Benign essential hypertension (SCT [id number] t monocular blindness (SCT 62640323) Gastroesophageal reflux disease (SCT 235Hallucin ations (SCT 2406573) Umbilical hernia (SCT 275361 007) Lichen simplex chronicus (SCT 33123798) Tinea pedis (SCT 7486857) Obstruct denzel sleep apnea of adult (SCT 5292636778651) Mood disorder (SCT 71040039) Chronic kidney disease stage 3 (SCT 100533987) Keratoderma (SCT 036324835) Allergic conjunctivitis (SCT 188392889) 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) Prostate cancer (SCT 334656602) Asthma (SCT 605466631) Low back pain (SCT 905893676) History of polyp of colon (SCT 676743711Aanzrie (SCT 486949127) Gastroesophageal reflux disease (SCT 235Anxiety disorder ([facility] 824711704) Bipolar disorder ([facility] 23448215) Paranoia ([facility] 697013020) Hyperlipidemia ([facility] 80366462) ALLERGIES: Patient has answered NKA MEDICATIONS: Active Outpatient Medications (excluding Supplie s): Active Outpatient Medications Status 1) BUDESONIDE 80/FORMOTER 4.5MCG 120D INH INHA LE 2 PUFFS ACTIVE BY MOUTH TWICE A DAY FOR BREATHING/RINSE MOUTH WITH WATER,SWISH AROUND AND SPIT OUT AFTER USI NG INHALER 2) CHOLECALCIF 25MCG (D3-1,000UNIT) TAB TAKE O NE TABLET ACTIVE BY MOUTH EVERY DAY 3) KETOCONAZOLE 2% SHAMPOO SHAMPOO SMALL AMOUN T ACTIVE TOPICALLY ON MONDAYS AND THURSDAYS 4) LISINOPRIL 5MG TAB TAKE ONE TABLET BY MOUTH EVERY DAY ACTIVE TO CONTROL BLOOD PRESSURE 5) POLYETHYLENE GLYCOL 3350 ORAL PWDR TAKE 1 C APFUL (17 ACTIVE GRAMS) BY MOUTH EVERY DAY , DISSOLVED IN 4 TO 8 OZ. CLEAR LIQUID / FOR CONSTIPATION 6) ROSUVASTATIN CA 40MG TAB TAKE ONE TABLET BY MOUTH ACTIVE EVERY DAY TO LOWER CHOLESTEROL 7) SERTRALINE HCL 100MG TAB TAKE ONE TABLET BY MOUTH ACTIVE EVERY DAY FOR DEPRESSION OR ANXIETY Active Non-VA Medications Status 1) Non-VA ASPIRIN 325MG TAB 325MG BY MOUTH ACTIVE 2) Non-VA FAMOTIDINE 10MG TAB 10MG BY MOUTH EV DAY ACTIVE NEEDED 9 Total Medications MEDICATION RECONCILIATION: REVIEWED MEDS WITH VITALS: 249.4 lb [113.4 kg] (10/09/2020 12:39) DATE/TIME TEMP PULSE RESP B P PAIN WEIGHT 10/09/20 @ 1239 98 77 18 1 57/80 0 249.4 07/22/20 @ 1205 76 16 1 07/22/20 @ 0923 258 MENTAL STATUS EXAM: *Appearance: intact grooming and hygiene, dressed appropriately, good nutrition, appears stated age *Motor: no restlessness or agitation Involuntary movements: no tics, twitches, tremor -Manner: cooperative and pleasant *Speech: spontaneous, good amount, normal rate, volume and intonation *Language: no word-finding problems, no neologi sms or unusual word usage -Affect: reactive, mood-congruent *Mood: improved *Thought process: organized and goal-directed, normal rate *Associations: intact and linear *Thought content: no delusions, no bizarre cont ent, no SI/HI *Perception: intact, with no hallucinations *Insight/Judgment: good/good *Memory: good historian, able to provide detail s of recent and remote events *Attention/concentration: intact in an office s etting OVERALL IMPRESSION/ASSESSMENT: 75 yo with past h/o BAD dx which now se ems more likely to have been depression in combination wi th alcohol use reports that his mood is much better due to increased social contact. His problems w ith loose stool are significantly improved with zoloft dose reductio n, but are still problematic. 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 If mood problems occur, would switch to a different AD. He may simply re-incr ease for now until out next visit. Psychosocial interventions: none Integrated Care interventions: Follow-up: Return to [facility] end november by CARMINE /chris/ LUIS CARLOS ARCE Staff Physician Signed: 11/04/2020 13:50
--- OUTSIDE RECORDS SUMMARY | 2020-12-05 21:40 | XMS_ITS | Encounter Summary ---
:1945 Author Organization Department [facility] rs Address [address] [place] [address] Care Team Providers Name Role Phone CHANDLER, [...] Number Dhillon ANTHEM PREFERRED BASIC May 17 [id number] [phone] OSCAR LITTLE P ATIENT [place] OF [place] PROVIDER SELF 2002 [id number] AN (FEDERAL) ORGANIZAT ION (PPO) [place] PREFERRED BASIC May 17 [id number] [phone] OSCAR MACEDO PATIENT FEDERAL PROVIDER SELF 2002 22 4 AN ORGANIZAT ION (PPO) CAREMARK-F PRESCRIPT BCBS May 17, [id number] [phone] ZEINAOSCAR PATIENT EP BCBS ION FEP 2010 0 [id number] AN PLAN MEDICARE MEDICARE PART Jan 15, PART A [id number] SIDNEY OSCAR PATIENT (WNR) (M) A 2008 [id number] 2 AN Selected Encounter This section includes the information on record at [place] for the Encounter. Date/Time Encounter Type Encounter Reason Provider Source Description Oct 31, 2020 09:06 Outpatient PRIMARY TAVIA OH AM Encounter CARE/MEDICINE [facility] Encounter Template Text not used by [place] [...] The data comes from all [facility]. Appointment Date/Time Appointment Type Appointment Facili ty Name Nov 04, 2020 01:00 PM AMBULATORY [place] [facility] Nov 12, 2020 08:30 AM AM[place]UL[place]ORY [place] NONE [place] [facility] Nov 19, 2020 02:00 PM [place] [facility] Dec 05, 2020 08:00 AM AMBULATORY - NONE [place] [facility] Dec 11, 2020 12:00 PM AMBULATORY - [place] [facility] Dec 23, 2020 11:00 AM [place] [facility] Dec 30, 2020 10:15 AM AMBULATORY - NONE [place] [facility] Jan 28, 2021 10:00 AM AMBULATORY - NONE [place] [facility] Feb 26, 2021 01:30 PM AMBULATORY - NONE [place] [facility] Active, Pending, and Scheduled Orders This section includes a listing of several types of active, pending, and scheduled orders, including clinic medications orders, diagnostic test orders, procedure orders and consult orders; where the start date of the order is 45 days before the date of the Encounter or 45 days after the date of the Encounter. The data comes from all [facility]. Test Date/Time Test Type Test Details Facility Name October 09, 2020 01:31 PM Consult Order SLEEP CLINIC [place] OUTPATIENT Cons [facility] Marketing And Public Relations Manager's Choice Nov 26, 2020 12:00 AM Laboratory - Chemistry [place] Order GLU,BUN,CREAT,LYTES,CA [facility] LT GREEN(LI HEP) PLASMA SP Lab Results: [...] [facility] PANEL Comment: Tests performed on [email or web address] (405) SN:[id number] Ordering Provider: TOSHIA OH Report Released Date/Time: Sep 05, 2020 04:22 PM Reporting Lab: [place] [facility] [address] [facility] [address] Performing Lab: [place] [facility] [address] [facility] [address] CREATININE (URINE,RANDOM) 178.0 mg/dL MICROALBUMIN, QUANTITATIVE 2.1 mg/dL 0.0 -29.9 MICROALBUMIN/CREATININE RATIO 11.8 mg/g 0.0-29.9 October 09, 2020 [place]4 GLU,BUN,CREAT,LYTES,CA Specimen Type: PLASMA 12:18 PM [facility] Comment: Tests performed on [employer] (405) SN:[id number] Ordering Provider: TOSHIA OH Report Released Date/Time: Sep 05, 2020 03:18 PM Reporting Lab: [place] [facility] [address] [facility] [address] Performing Lab: [place] [facility] [address] [facility] [address] UREA NITROGEN 16 mg/dL 7-25 SODIUM 140 [...] FRACT. PANEL Comment: Tests performed on [employer] (405) SN:[id number] Ordering Provider: TOSHIA OH Report Released Date/Time: Sep 05, 2020 03:18 PM Reporting Lab: [place] [facility] [address] [facility] [address] Performing Lab: [place] [facility] [address] [facility] [address] CHOLESTEROL 119 mg/dL 0-199 TRIGLYCERIDE 131 mg/dL 0-149 HDL CHOLESTEROL 33 mg/dL L >40 LDL CHOLESTEROL (CALC) 60 mg/dl 0-129 October 09, 2020 12:18 PM [place] [facility] IRON+TIBC(P) Specimen Type: PLASMA Comment: Tests performed on [employer] (405) SN:[id number] Ordering Provider: TOSHIA OH Report Released Date/Time: Sep 05, 2020 04:22 PM Reporting Lab: [place] [facility] [address] [facility] [address] Performing Lab: [place] [facility] [address] [facility] [address] IRON 97 ug/dL 40-160 TIBC 332 ug/dL 204-475 IRON SATURATION(P) 29 % >15 October 09, 2020 12:18 PM [place] [facility] FERRITIN Specimen Type: SERUM Comment: Tests performed on [email or web address] (405) SN:[id number] Ordering Provider: TOSHIA OH Report Released Date/Time: Sep 05, 2020 04:22 PM Reporting Lab: [place] [facility] [address] [facility] [address] Performing Lab: [place] [facility] [address] [facility] [address] FERRITIN 267.2 ng/mL 20-300 October 09, 2020 12:18 PM [place] [facility] URIC ACID Specimen Type: PLASMA Comment: Tests performed on [email or web address] (405) SN:[id number] Ordering Provider: TOSHIA OH Report Released Date/Time: Sep 05, 2020 04:22 PM Reporting Lab: [place] [facility] [address] [facility] [address] Performing Lab: [place] [facility] [address] [facility] [address] URIC ACID 6.1 mg/dl 3.3-8.7 October 09, 2020 12:18 PM [place] [facility] ALBUMIN Specimen Type: PLASMA Comment: Tests performed on [employer] (405) SN:[id number] Ordering Provider: TOSHIA OH Report Released Date/Time: Sep 05, 2020 04:22 PM Reporting Lab: [facility] [address] [facility] [address] Performing Lab: [place] [facility] [address] [facility] [address] ALBUMIN 3.9 g/dL 3.2-5.0 October 09, 2020 12:18 [place] VIT D 25-OH([facility]) Specimen Type: SERUM PM VAM[facility]OC Comment: Tests performed on [email or web address] (405) SN:[id number] Ordering Provider: TOSHIA OH Report Released Date/Time: Sep 05, 2020 04:22 PM Reporting Lab: [place] [facility] [address] [facility] [address] Performing Lab: [facility] [address] [facility] [address] VIT D 25-OH([facility]) 12.9 ng/mL L 20-50 October 09, 2020 12:18 [facility]) Specimen Type: SERUM PM [facility] Comment: Tests performed on [email or web address] (405) SN:[id number] Ordering Provider: TOSHIA OH Report Released Date/Time: Sep 05, 2020 04:22 PM Reporting Lab: [facility] [address] [facility] [address] Performing Lab: [facility] [address] [facility] [address] PTH-INTACT([facility]) 95.9 pg/mL H 8.7-77.1 October 09, 2020 12:18 [place] URINALYSIS W/REFLEX TO Specimen Type: URINE PM [facility] CULTURE No comment enter ed. Ordering Provider: TOSHIA OH Report Released Date/Time: Sep 05, 2020 04:22 PM Reporting Lab: [facility] [address] [facility] [address] Performing Lab: [place] [facility] [address] [facility] [address] URINE COLOR Yellow YELLOW SPECIFIC GRAVITY 1.018 1.003-1.030 UROBILINOGEN <2.0 mg/dL <2.0 URINE BILIRUBIN NEG NEG URINE KETONES NEG mg/dL NEG URINE GLUCOSE NEG mg/dL NEG PROTEIN, URINE 30 mg/dL NEG URINE PH 5.0 5-8 CLARITY HAZY Clear URINE BLOOD NEG NEG NITRITE, URINE NEG NEG WBC SCREEN NEG NEG October 09, 2020 12:[address] [facility] UAMICROSCOPIC Specimen Type: URINE No comment enter ed. Ordering Provider: TOSHIA OH Report Released Date/Time: Sep 05, 2020 04:22 PM Reporting Lab: [facility] [address] [facility] [address] Performing Lab: [facility] [address] [facility] [address] WHITE BLOOD CELL/URINE 5 /HPF 0-5 HYALINE [...] took place. Date/Time Current Smoking Status Comment [facility] Apr 09, 2020 11:00 AM VA-TOBACCO FORMER USER [facility] [...] AM VA-TOBACCO QUIT [address] [facility] Jan 14, 2018 03:08 PM VA-TOBACCO FORMER USER [facility] Jan 14, 2018 03:08 PM VA-TOBACCO QUIT [address] [facility] Mar 16, 2017 09:08 AM QUIT TOBACCO USE > [address] [facility] quit 1983Mar 04, 2016 10:28 AM QUIT TOBACCO USE > [address] [facility] Quit 1983Mar 10, 2005 10:47 AM HISTORY OF SMOKING ADITYA Gato POLO [facility] 1983Mar 31, 2004 09:26 AM HISTORY OF SMOKING [place] [facility] Mar 31, 2004 09:26 AM QUIT TOBACCO USE > 7 YEARS AGO ADITYA ARREOLA [facility] Aug 22, 2001 01:30 PM HISTORY OF SMOKING ADITYA POLO [facility] Advance Directives: All historical and current [...] 2014 ADVANCE DIRECTIVE EYAL MONTILLA [place] [facility] Encounter Notes: All associated encounter notes This section contains the clinical notes associated to the Encounter. Date/Time Encounter Note(s) Provider Source Oct 31, 2020 09:06 AM PRIMARY CARE SECURE MESSAGING: TAVIA OH T LOCAL TITLE: PRIMARY CARE SECURE MESSAGING [facility] STANDARD TITLE: PRIMARY CARE SECURE MESSAGING DATE OF NOTE: OCT 31, 2020@09:06:43 ENTRY DATE: OCT 31, 2020@09:06:44 AUTHOR: TAVIA OH EXP COSIGNER: URGENCY: STATUS: COMPLETED PRIMARY CARE SECURE MESSAGING Has ADDENDA ------Original Message Sent: 10/30/2020 05:14 PM From: KATHY LITTLE To: Tevin [email or web address] Subject: Community Care Referral [id number] Dear Ms. Oh, [facility] TITLE: VIDEO-CONNECT NOTE STANDARD TITLE: TELEHEALTH NOTE DATE OF NOTE: OCT 28, 2020@10:35 ENTRY DATE: OCT 25, 2020@12:12:26 AUTHOR: TOSHIA OH EXP COSIGNER: KRISTI GRANADOS URGENCY: STATUS: COMPLETED Follow Up Colonoscopy: Colonoscopy is due based on information availab le to this reminder. Patient has arranged or is choosing to arrange a Colonoscopy independent of and w/out assistance from this VA. has scheduled nonVA in January 2021- will sen d record From Pt asfrigon 0930 Just a note to let you know The [place] approved me f or Community Care under [facility] for Gastroenterology service . The Referral [id number] is valis from through 06/03/2021. Please make a note in the record. Iain, Kathy Little Patient /chris/ TAVIA OH MSN, RN Signed: 10/31/2020 09:06 Receipt Acknowledged By: 10/31/2020 13:29 /chris/ TOSHIA OH Nurse Practitioner Resident 10/31/2020 10:32 /es/ Manny zapata MSN, INDUSTRIAL STAFF NURSE Nurse Practitioner Faculty 10/31/2020 ADDENDUM STATUS: COMPLETED Sounds good! thank you! /chris/ TOSHIA OH Nurse Practitioner Resident Signed: 10/31/2020 13:30 /chris/ Manny Arteaga MSN, INDUSTRIAL STAFF NURSE Nurse Practitioner Faculty Cosigned: 10/31/2020 13:30 Receipt Acknowledged By: * AWAITING SIGNATURE * TAVIA OH
--- OUTSIDE RECORDS SUMMARY | 2020-12-05 21:40 | XMS_ITS ---
NUTRITION/DIETETICS-INDIVIDUAL [place] [facility] Encounter Summary Created on:November 12, 2020 Patient:KATHY LITTLE Sex:Male :1945 Author Organization Department [facility] rs Address [address] [place] [address] Care Team Providers Name Role Phone MANNY ARTEAGA Primary Care Provider Unavailable ANNIE OH Unavailable Unavailable Insurance Providers: All historical [...] Number Dhillon ANTHEM PREFERRED BASIC May 17 [id number] [phone] OSCAR LITTLE P ATIENT [place] PROVIDER SELF 2002 [id number] AN (FEDERAL) ORGANIZAT ION (PPO) [place] PREFERRED BASIC May 17 [id number] [phone] OSCAR MACEDO PATIENT FEDERAL PROVIDER SELF 2002 22 4 AN ORGANIZAT ION (PPO) [place]-F PRESCRIPT BCBS May 17, [id number] [phone] FR OSCAR PASTRANA PATIENT EP BCBS ION FEP 2010 0 [id number] AN PLAN MEDICARE MEDICARE PART Jan 15, PART A [id number] SIDNEY OSCAR PATIENT (WNR) (M) A 2008 [id number] 2 AN Selected Encounter This section includes the information on record at [place] for the Encounter. Date/Time Encounter Type Encounter Reason Provider Source Description Nov 12, 2020 MEDICAL NUTRITION/DIETETI ICD-10-CM Z71.3 KADEN PEREZ 08:30 AM NUTRITION INDIV CS-INDIVIDUAL Dietary counseling IN and surveillance with Provider Comments: Dietary counseling and surveillance IHE Encounter Template Text not used by [facility] Assessments - Encounter Diagnoses This section includes the primary and secondary diagnoses documented forthe Encounter. Date/Time Primary/Secondary Diagnosis Name Provider Source Diagnosis Nov 12, 2020 PRIMARY Dietary counseling KADEN PEREZ JAKUB 09:20 AM and surveillance [facility] Nov 12, 2020 SECONDARY Body mass index KADEN PEREZ [place] 09:20 AM [BMI] 34.0-34.9, [facility] adult Nov 12, 2020 SECONDARY Obesity, KADEN PEREZ 09:20 AM unspecified [facility] Plan of Treatment: Future Appointments (+ 6 [...] Appointment Type Appointment Facili ty Name Nov 19, 2020 02:00 PM AMBULATORY - RE[place] MEDICINE [place] [facility] Dec 05, 2020 08:00 AM AM[place]ULATORY - NONE [place] [facility] Dec 11, 2020 12:00 PM AMBULATORY - PSYCHIATRY [place] [facility] Dec 23, 2020 11:00 AM AMBULATORY - REHAB MEDICINE [place] [facility] Dec 30, 2020 10:15 AM AMBULATORY - NONE [place] [facility] Jan 28, 2021 10:00 AM AM[place]ULATORY - NONE [place] [facility] Feb 26, 2021 01:30 PM AMBULATORY - NONE [facility] Active, Pending, and Scheduled Orders This section includes a listing of several types of active, pending, and scheduled orders, including clinic medications orders, diagnostic test orders, procedure orders and consult orders; where the start date of the order is 45 days before the date of the Encounter or 45 days after the date of the Encounter. The data comes from all [place] treatment facilities. Test Date/Time Test Type Test Details Facility Name October 09, 2020 01:31 PM Consult Order SLEEP CLINIC ADITYA JEFF OUTPATIENT Cons [facility] Manager Of Software's Choice Nov 26, 2020 12:00 AM Laboratory - Chemistry P4 [facility] HANNA [facility] Order GLU,BUN,CREAT,LYTES,CA [facility] LT GREEN(LI HEP) PLASMA SP Surgical Procedures: All associated to the encounter This section includes all Surgical Procedures and Surgical Procedure Notes associated to the Encounter.Surgical Procedures This section includes all Surgical Procedures associated to the Encounter.Surgical Procedure Date/Time Procedure Procedure Type Procedure Provider Source Qualifiers Nov 12, 2020 MEDICAL MEDICAL Other Procedure CHRISKADEN 08:30 AM NUTRITION INDIV NUTRITION CPT Code(s): JCT VAM ADELAIDE IN INDIV IN 95-SYNCHRONOUS TELEMEDICINE SERVICE, AE-STRAP MAKER Surgical Notes There are no notes associated with this procedure. Vital Signs: All taken on the encounter date This section contains inpatient and outpatient Vital Signs collected on the date of the Encounter. Date/Time Temperature Pulse Blood Respiratory SP02 Pain Height Weight Gildardo dy Source Pressure Rate Mass Index Nov 12, 240 lb 35 WH[place] 2020 09:13 [place] AM [facility] Social History: Smoking Status (Most current) and [...] 09, 2020 11:00 AM VA-TOBACCO FORMER USER [facility]NA [facility] Tobacco Use History This section includes a history of the smoking, or tobacco-related health factors, that were collected on or before the date of the Encounter. The data comes from the [place] facility where the Encounter took place. Date/Time Smoking Status/Tobacco Use Comment [facility] Apr 09, 2020 11:00 AM VA-TOBACCO QUIT 15 YRS OR MORE [facility] Jan 14, 2018 03:08 PM VA-TOBACCO FORMER USER [facility] Jan 14, 2018 03:08 PM VA-TOBACCO QUIT 15 YRS OR MORE [facility] Mar 16, 2017 09:08 AM QUIT TOBACCO USE > 7 YEARS AGO [facility] quit 1984 Mar 04, 2016 10:28 AM QUIT TOBACCO USE > 7 YEARS AGO ADITYA ARREOLA [facility] Quit 1983Mar 10, 2005 10:47 AM HISTORY OF SMOKING ADITYA POLO [facility] 1983Mar 31, 2004 09:26 AM HISTORY OF SMOKING ADITYA POLO [facility] Mar 31, 2004 09:26 AM QUIT TOBACCO USE > 7 YEARS AGO ADITYA ARREOLA [facility] Aug 22, 2001 01:30 PM HISTORY OF SMOKING ADITYA POLO [facility] Advance Directives: All historical and current Section Date Range: From patient's date of to the date document was created. This section includes ALL of a patient's completed or amended [place] Advance and Rescinded Directives. The entries below indicate that a directive exists for the patient, but an actual copy is not included with this document. The data comes from all [place] facilities. Date Advance Directives Provider Source Feb 23, 2014 ADVANCE DIRECTIVE EYAL MONTILLA ADITYA ARREOLA [facility] Encounter Notes: All associated encounter notes This section contains the clinical notes associated to the Encounter. Date/Time Encounter Note(s) Provider Source Nov 12, 2020 08:07 AM NUTRITION DIETETICS CONSULT: KADEN PEREZ [facility] LOCAL TITLE: CONSULT: Nutrition [facility] STANDARD TITLE: NUTRITION DIETETICS CONSULT DATE OF NOTE: NOV 12, 2020@08:07 ENTRY DATE: NOV 12, 2020@08:07:47 AUTHOR: KADEN PEREZ EXP COSIGNER: URGENCY: STATUS: COMPLETED Patient has consented to rec eive this care by telehealth and provided/confirmed current location and phone number; an emergency contact number was also obtained/confirmed. T/w introduced self and conf irmed all parties in the room. Pt appeared to be in a safe and private environment. IMPORTANT CONTACT INFO: 1. If patient does utilize local [facility] services: a) [place] E911 [phone] 2. [place] [employer] Help [employer]k - This visit was conducted over the phone due to t he COVID-19 Pandemic Reason for consult:Obesity, unspecified(ICD-10-C M E66.9) Reason For Request: would like some ideas for he althy meal/snack options, intention to lose weight Person sending consult: Annie Oh Time spent: 45 mins Dx: z71.3, z68.34 A: SUBJECTIVE: Went to one session of [employer] and didn't like the community feel of it. Lives alone and has for many years, eats more processed foods and doesn't cook and doesn't want to learn to cook. He uses froze n vegetables BARRIERS TO LEARNING INCLUDE: none identified Appetite: N/V/D/C: Difficulty chewing/swallowing: Previous Dx dysphagia: Pertinent PMHx: see CPRS for full list Benign essential hypertension ([facility] [id number] t monocular blindness ([facility] [id number]) Gastroesophageal reflux disease (SCT 235Hallucin ations ([facility] [id number]) Umbilical hernia ([facility] [id number]) Lichen simplex chronicus ([facility] [id number]) Tinea pedis ([facility] [id number]) Obstruct denzel sleep apnea of adult ([facility] [id number]) Mood disorder ([facility] [id number]) Chronic kidney disease stage 3 ([facility] [id number]) Keratoderma ([facility] [id number]) Allergic conjunctivitis ([facility] [id number]) 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) Prostate cancer ([facility] [id number]) Asthma ([facility] [id number]) Low back pain ([facility] [id number]) History of polyp of colon ([facility] [id number] ([facility] [id number]) Gastroesophageal reflux disease (SCT 235Anxiety disorder ([facility] [id number]) Bipolar disorder ([facility] 39048626) Paranoia ([facility] [id number]) Hyperlipidemia ([facility] [id number]) Pertinent Meds: see CPRS for full list 1) BUDESONIDE 80/FORMOTER 4.5MCG 120D INH INHA [...] ACTIVE EVERY DAY FOR DEPRESSION OR ANXIETY Pertinent Labs: HGB A1C: 5.6 (05/02/20 13:53) CHOL: 119 (10/09/20 12:18) HDL: 33 (10/09/20 12:18) LDL: 60 (10/09/20 12:18) TRI (10/09/20 12:18) Nutrition Vitals Height:70 in [177.8 cm] (03/13/2019 12:36) Weight: 240 lbs at home today BODY MASS INDEX: 34.5 IBW: 166 +/-10% 145% IBW Adjusted BW:185 Weight history: was 258 lbs earlier this year, actively losing weight to 240 lbs not on home scale Food Recall: B- 3 fried eggs in olive oil every other day, sk ips breakfast every other day low caffeine coffee L- skips, or 1/2 can large can baked beans D- 1/2 large can baked beans or bag frozen veget amisha or frozen oriana Snacks- berries Beverages- water 8 glasses per day, diet gingera le ETOH/Smoking: no Social: lives alone Food Insecurity: none reported Sleep: not discussed Exercise: minimal activity, had a terrible fall a few weeks ago COMPREHENSION/MOTIVATION TO LEARN IS ASSESSED : [x ] GOOD NUTRITION-FOCUSED PHYSICAL EXAM/ASSESSMENT Pt appears well nourished D: Nutrition Diagnosis: obesity Related to: history of caloric intake exceeds ne eds, minimal calories burned through activity As evidenced by: BMI 34 I: INTERVENTION/PLAN: Nutrition Rx [id number] kcals for wt loss Nutrition Education Plate Method DASH diet Nutrition Counseling - Reviewed current eating habits and made recomm endations for healthy changes including eating more regular meals with less sk ipping, having a healthier balance of foods on the plate, lowering sodium i n the diet, and increasing fruits and vegetables. - Used motivational interviewing to together yadira up with goals to promote continued sustaianble weight loss ME: Nutrition and Lifestyle goals: - will eat breakfast everyday: 2 eggs and use cooking spray to cook or oatmeal w/ berries - will walk indoors at the mall or outside in his neighborhood 3-4 days per week - [place] will follow healthy plate method: 1/2 plate veg, 1/4 plate protein, 1/4 plate carbs at dinner Anthropometric Measurement Outcomes: Weight loss of 1/2-2 lbs per week Recommended f/u: 01/28 @ 10am /es/ KADEN PEREZ MS, RD Clinical Dietitian Signed: 11/12/2020 09:21 Receipt Acknowledged By: * AWAITING SIGNATURE * CHU ORR
--- OUTSIDE RECORDS SUMMARY | 2020-12-05 21:40 | XMS_ITS | Encounter Summary ---
:1945 Author Organization Department [facility] rs Address [address] [place] [id number] Care Team Providers Name Role Phone CHANDLER, [...] Number Dhillon ANTHEM PREFERRED BASIC May 17 [id number] [phone] OSCAR LITTLE P ATIENT BCBS OF [place] PROVIDER SELF 2002 [id number] AN (FEDERAL) ORGANIZAT ION (PPO) BCBS OF [place] PREFERRED BASIC May 17 [id number] [phone] OSCAR MACEDO PATIENT FEDERAL PROVIDER SELF 2002 22 4 AN ORGANIZAT ION (PPO) CAREMARK-F PRESCRIPT BCBS May 17, [id number] [phone] FR OSCAR PASTRANA PATIENT EP BCBS ION FEP 2010 0 [id number] AN PLAN MEDICARE MEDICARE PART Jan 15, PART A [id number] OSCAR LITTLE PATIENT (WNR) (M) A 2008 [id number] 2 AN Selected Encounter This section includes the [facility]. Date/Time Encounter Type Encounter Description Reason Provider Source October 11, 2020 09:15 Outpatient Encounter TIFFANIE VARGAS IHE Encounter Template Text not used by [...] Date/Time Appointment Type Appointment Facili ty Name Oct 28, 2020 11:00 AM AMBULATORY - NONE [facility] Nov 04, 2020 01:00 PM AMBULATORY - PSYCHIATRY [facility] Nov 12, 2020 08:30 AM AMBULATORY - NONE [facility] Nov 19, 2020 02:00 PM AMBULATORY - REHAB MEDICINE [facility] Dec 05, 2020 08:00 AM AMBULATORY - NONE [facility] Dec 11, 2020 12:00 PM AM[facility]AT[facility] - [facility] Dec 23, 2020 11:00 AM AMBULATORY - REHAB MEDICINE [facility] Dec 30, 2020 10:15 AM AMBULATORY - NONE [facility] Jan 28, 2021 10:00 AM AMBULATORY - NONE [facility] Feb 26, 2021 01:30 PM AMBULATORY - NONE [facility] Active, Pending, and Scheduled Orders This section includes a listing of several types of active, pending, and scheduled orders, including clinic medications orders, diagnostic test orders, procedure orders and consult orders; where the start date of the order is 45 days before the date of the Encounter or 45 days after the date of the Encounter. The data comes from all [facility]. Test Date/Time Test Type Test Details Facility Name October 09, 2020 01:31 PM Consult Order SLEEP CLINIC OUTPATIENT ITE [facility] Cons Senior Software Development Manager's Choice Lab Results: +/- 30 days of the encounter This section includes the Chemistry and Hematology Lab Results on record with MD for the patient. Radiology Reports and Pathology Reports are provided separately, in subsequent sections.Lab Results This section contains the Chemistry/Hematology Results that were resulted 30 days before or 30 days after the date of the Encounter. Date/Time Source Result Type Result - Unit Interpretation Reference Range Comment October 09, 2020 [place] MICROALBUMIN/CREATININE RATIO Specimen Type: URINE 12:19 PM [facility] PANEL Comment: Tests performed on Kohli Broom Worker (405) SN:[id number] Ordering Provider: TOSHIA OH Report Released Date/Time: Sep 05, 2020 04:22 PM Reporting Lab: [place] [facility] [address] [facility] [address] Performing Lab: [facility] [address] [facility] [address] CREATININE (URINE,RANDOM) 178.0 mg/dL MICROALBUMIN, QUANTITATIVE 2.1 mg/dL 0.0 -29.9 MICROALBUMIN/CREATININE RATIO 11.8 mg/g 0.0-29.9 October 09, 2020 [place] P4 GLU,BUN,CREAT,LYTES,CA Specimen Type: PLASMA 12:18 PM [facility] Comment: Tests performed on Kohli Broom Worker (405) SN:[id number] Ordering Provider: TOSHIA OH Report Released Date/Time: Sep 05, 2020 03:18 PM Reporting Lab: [place] [facility] [address] [facility] [address] Performing Lab: [place] [facility] [address] [facility] [address] UREA NITROGEN 16 mg/dL 7-25 SODIUM 140 [...] FRACT. PANEL Comment: Tests performed on Kohli Broom Worker (405) SN:[id number] Ordering Provider: TOSHIA OH Report Released Date/Time: Sep 05, 2020 03:18 PM Reporting Lab: [place] [facility] [address] [facility] [address] Performing Lab: [place] [facility] [address] [facility] [address] CHOLESTEROL 119 mg/dL 0-199 TRIGLYCERIDE 131 mg/dL 0-149 HDL CHOLESTEROL 33 mg/dL L >40 LDL CHOLESTEROL (CALC) 60 mg/dl 0-129 October 09, 2020 12:18 PM [place] [facility] IRON+TIBC(P) Specimen Type: PLASMA Comment: Tests performed on Kohli Broom Worker (405) SN:[id number] Ordering Provider: TOSHIA OH Report Released Date/Time: Sep 05, 2020 04:22 PM Reporting Lab: [place] [facility] [address] [facility] [address] Performing Lab: [place] [facility] [address] [facility] [address] IRON 97 ug/dL 40-160 TIBC 332 ug/dL 204-475 IRON SATURATION(P) 29 % >15 October 09, 2020 12:18 PM [place] [facility] FERRITIN Specimen Type: SERUM Comment: Tests performed on Kohli Broom Worker (405) SN:[id number] Ordering Provider: TOSHIA OH Report Released Date/Time: Sep 05, 2020 04:22 PM Reporting Lab: [place] [facility] [address] [facility] [address] Performing Lab: [place] [facility] [address] [facility] [address] FERRITIN 267.2 ng/mL 20-300 October 09, 2020 12:18 PM [place] [facility] URIC ACID Specimen Type: PLASMA Comment: Tests performed on Kohli Broom Worker (405) SN:[id number] Ordering Provider: TOSHIA OH Report Released Date/Time: Sep 05, 2020 04:22 PM Reporting Lab: [place] [facility] [address] [facility] [address] Performing Lab: [place] [facility] [address] [facility] [address] URIC ACID 6.1 mg/dl 3.3-8.7 October 09, 2020 12:18 PM [place] [facility] ALBUMIN Specimen Type: PLASMA Comment: Tests performed on Kohli Broom Worker (405) SN:[id number] Ordering Provider: TOSHIA OH Report Released Date/Time: Sep 05, 2020 04:22 PM Reporting Lab: [place] [facility] [address] [facility] [address] Performing Lab: [facility] [address] [facility] [address] ALBUMIN 3.9 g/dL 3.2-5.0 October 09, 2020 12:18 [place] VIT D 25-OH([facility]) Specimen Type: SERUM PM [facility] Comment: Tests performed on Kohli Broom Worker (405) SN:[id number] Ordering Provider: TOSHIA OH Report Released Date/Time: Sep 05, 2020 04:22 PM Reporting Lab: [place] [facility] [address] [facility] [address] Performing Lab: [facility] [address] [facility] [address] VIT D 25-OH([facility]) 12.9 ng/mL L 20-50 October 09, 2020 12:18 [place] PTH-INTACT([facility]) Specimen Type: SERUM PM [facility] Comment: Tests performed on Kohli Broom Worker (405) SN:[id number] Ordering Provider: TOSHIA OH Report Released Date/Time: Sep 05, 2020 04:22 PM Reporting Lab: [facility] [address] [facility] [address] Performing Lab: [facility] [address] [facility] [address] PTH-INTACT([facility]) 95.9 pg/mL H 8.7-77.1 October 09, 2020 12:18 [place] URINALYSIS W/REFLEX TO Specimen Type: URINE PM [facility] CULTURE No comment enter ed. Ordering Provider: TOSHIA OH Report Released Date/Time: Sep 05, 2020 04:22 PM Reporting Lab: [place] [facility] [address] [facility] [address] Performing Lab: [facility] [address] [facility] [address] URINE COLOR Yellow YELLOW SPECIFIC GRAVITY 1.018 1.003-1.030 UROBILINOGEN <2.0 mg/dL <2.0 URINE BILIRUBIN NEG NEG URINE KETONES NEG mg/dL NEG URINE GLUCOSE NEG mg/dL NEG PROTEIN, URINE 30 mg/dL NEG URINE PH 5.0 5-8 CLARITY HAZY Clear URINE BLOOD NEG NEG NITRITE, URINE NEG NEG WBC SCREEN NEG NEG October 09, 2020 12:18 PM [facility] UAMICROSCOPIC Specimen Type: URINE No comment enter ed. Ordering Provider: TOSHIA OH Report Released Date/Time: Sep 05, 2020 04:22 PM Reporting Lab: [facility] [address] [facility] [address] Performing Lab: [facility] [address] [facility] [address] WHITE BLOOD CELL/URINE 5 /HPF 0-5 HYALINE [...] 09, 2020 11:00 AM VA-TOBACCO FORMER USER [facility] Tobacco Use History This section includes a history of the smoking, or tobacco-related health factors, that were collected on or before the date of the Encounter. The data comes from the MD facility where the Encounter took place. Date/Time Smoking Status/Tobacco Use Comment [facility] Apr 09, 2020 11:00 AM VA-TOBACCO QUIT 15 YRS OR MORE [facility] Jan 14, 2018 03:08 PM VA-TOBACCO FORMER USER [facility] Jan 14, 2018 03:08 PM VA-TOBACCO QUIT 15 YRS OR MORE [facility] Mar 16, 2017 09:08 AM QUIT TOBACCO USE > 7 YEARS AGO [facility] quit 1983Mar 04, 2016 10:28 AM QUIT TOBACCO USE > 7 YEARS AGO [facility] Quit 1983Mar 10, 2005 10:47 AM HISTORY OF SMOKING [place] [facility] 1983Mar 31, 2004 09:26 AM HISTORY OF SMOKING [place] [facility] Mar 31, 2004 09:26 AM QUIT TOBACCO USE > 7 YEARS AGO [facility] Aug 22, 2001 01:30 PM HISTORY OF SMOKING [place] [facility] Advance Directives: All historical and current Section [...] Feb 23, 2014 ADVANCE DIRECTIVE EYAL MONTILLA [facility] [place] [facility] Encounter Notes: All associated encounter notes This section contains the clinical notes associated to the Encounter. Date/Time Encounter Note(s) Provider Source October 11, 2020 09:15 AM LETTERS: TOSHIA OH LOCAL TITLE: Letter To Patient [facility] STANDARD TITLE: LETTERS DATE OF NOTE: OCTOBER 11, 2020@09:15 ENTRY DATE: OCTOBER 11, 2020@09:15:09 AUTHOR: TOSHIA OH COSIGNER: MANNY ARTEAGA URGENCY: STATUS: COMPLETED [employer] [facility] [address] [place] [address] OCTOBER 11, 2020 MR. KATHY LITTLE [address] [place] [id number] Dear Mr. Kathy Little: I hope you're well! I wanted to let you know the results of the labs you had recently drawn. CHOLESTEROL >> NORMAL -- in good control and at goal. The rosuvastatin is doing it's job! CHOL: 119 (10/09/20 12:18) HDL: 33 (10/09/20 12:18) LDL: 60 (10/09/20 12:18) TRI (10/09/20 12:18) Normal Values: CHOL: less than 200 HDL: greater than 40 LDL: less than 130 TRIG: less than 1 50 LDL (in heart disease/diabetes): less than 100 You are on the best medicati on, rosuvastatin, to help control your cholesterol. Taking that, and eating a di et rich in fruits, vegetables, polyunsaturated fats, lean meats, plant-based proteins and fiber all h elp to keep a cap on your cholesterol. I also recommend avoiding saturated fats (ex. fatty meats, lard, butter, cheese), red meat, r efined carbs, sweets and sugary drinks. Exercise is important too to keep your blood vessels, heart, and joints healthy! Aim for moderate-vigorous intensity aerobic exercise 3-4 times per week for ~40 minutes each session. Exercise snac ks, like taking the stairs, or ~10 minute bursts of activity throughout the day, can also be a good way to fit in activity. KIDNEY TESTS >> Your kidney function is SLIGHTLY DECLINED, but in the range of where it has been. Your electrolytes are normal. GLU,BUN,CREAT,LYTES GLUCOSE BUN CREAT S ODIUM K CHLOR CO2 10/09/20 12:18 97 16 1.23 1 40 4.3 106 23 GLU,BUN,CREAT,LYTES ANION eGFR 10/09/20 12:18 11 57 L IRON STORES >> NORMAL VITAMIN D >> LOW (12.9). The goal will be to get your vitamin D over 30. I'm sending you a vitamin D supp lement to take every day. You can also get vitamin D from about 10 to 15 min of sun exposure a few ti mes a week without wearing sunscreen. Other than that, make sure to cover u p and/or wear sun screen! If you have any further ques tions feel free to call toll free at , ext. [phone] or locally at ,ext. [phone] . Please ask for the nurse cov alexander Team 6 in [facility]. Please leave a detailed message related to your question or con cern. We are ready to assist you in your health and we llness goals. Sincerely, TOSHIA OH Nurse Practitioner Resident
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
--- OUTSIDE RECORDS SUMMARY | 2020-12-05 21:41 | XMS_ITS ---
:1945 Author Organization Department [facility] Address [address] [place] [id number] Care Team Providers Name Role Phone MANNY [...] Number Dhillon ANTHEM PREFERRED BASIC May 17 [id number] [phone] OSCAR LITTLE P ATIENT BCBS OF [place] PROVIDER SELF 2002 [id number] AN (FEDERAL) ORGANIZAT ION (PPO) [place] OF [place] PREFERRED BASIC May 17 [id number] [phone] OSCAR MACEDO PATIENT FEDERAL PROVIDER SELF 2002 22 4 AN ORGANIZAT ION (PPO) CAREMARK-F PRESCRIPT BCBS May 17 [id number] [phone] FR OSCAR PASTRANA PATIENT EP BCBS ION FEP 2010 [id number] AN PLAN MEDICARE MEDICARE PART Jan 15, PART A [id number] SIDNEY OSCAR PATIENT (WNR) (M) A 2008 [id number] 2 AN Selected Encounter This section includes the information on record at [place] for the Encounter. Date/Time Encounter Type Encounter Reason Provider Source Description October 09, 2020 OFFICE O/P EST CARDIOLOGY ICD-10-CM I10 PILO MITCHELL 01:00 PM MOD 30-39 MIN Essential L (primary) hypertension with Provider Comments: Benign essential hypertension (SCT [id number]) IHE Encounter Template Text not used by [place] Assessments - Encounter Diagnoses This section includes the primary and secondary diagnoses documented forthe Encounter. 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 Appointment Date/Time Appointment Type Appointment Facili ty Name Oct 28, 2020 11:00 AM AMBULATORY [place] NONE [place] [facility] Nov 04, 2020 01:00 PM AMBULATORY - [place] [facility] Nov 12, 2020 08:30 AM AMBULATORY - NONE [place] [facility] Nov 19, 2020 02:00 PM AMBULATORY [place] [facility] Dec 05, 2020 08:00 AM AMBULATORY - NONE [place] [facility] Dec 11, 2020 12:00 PM AMBULATORY - PS[place]IATRY [place] [facility] Dec 23, 2020 11:00 AM [place] [facility] Dec 30, 2020 10:15 AM AMBULATORY - NONE [place] [facility] Jan 28, 2021 10:00 AM AMBULATORY - NONE [facility] Feb 26, 2021 01:30 PM AMBULATORY - NONE [facility] Active, Pending, and Scheduled Orders [...] 01:31 PM Consult Order SLEEP CLINIC OUTPATIENT [facility] Cons Fire Fighters Dispatcher's Choice Lab Results: +/- 30 days of the encounter This section includes the Chemistry and Hematology Lab Results on record with [place] for the patient. Radiology Reports and Pathology Reports are provided separately, in subsequent sections.Lab Results This section contains the Chemistry/Hematology Results that were resulted 30 days before or 30 days after the date of the Encounter. Date/Time Source Result Type Result - Unit Interpretation Reference Range Comment October 09, 2020 [facility] MICROALBUMIN/CREATININE RATIO Specimen Type: URINE 12:19 PM [facility] PANEL Comment: Tests performed on Kohli Qoof (405) SN:[id number] Ordering Provider: TOSHIA [place] Report Released Date/Time: Sep 05, 2020 04:22 PM Reporting Lab: [facility] [address] [facility] [facility] [address] Performing Lab: [facility] [address] [address] CREATININE (URINE,RANDOM) 178.0 mg/dL MICROALBUMIN, QUANTITATIVE 2.1 mg/dL 0.0 -29.9 MICROALBUMIN/CREATININE RATIO 11.8 mg/g 0.0-29.9 October 09, 2020 [facility] P4 GLU,BUN,CREAT,LYTES,CA Specimen Type: PLASMA 12:18 PM [facility] Comment: Tests performed on Kohli Homemaking Rehabilitation Consultant (405) SN:[id number] Ordering Provider: TOSHIA OH Report Released Date/Time: Sep 05, 2020 03:18 PM [facility] [address] [facility] [address] Performing Lab: [facility] [address] [address] UREA NITROGEN 16 mg/dL 7-25 SODIUM 140 mmol/L 135-145 POTASSIUM 4.3 mmol/L 3.5-5.0 CHLORIDE 106 mmol/L 100-110 CARBON DIOXIDE 23 mmol/L 20-30 ANION GAP 11 mmol/L 4-16 GLUCOSE 97 mg/dL 65-100 CREATININE 1.23 mg/dl 0.5-1.5 CALCIUM 9.8 mg/dL 8.5-10.5 eGFR 57 mL/min L >60 October 09, 2020 12:18 [facility] LIPOPROTEIN CHOLESTEROL Specimen Type: PLASMA PM [facility] FRACT. PANEL Comment: Tests performed on Kohli Qoof (405) SN:[id number] Ordering Provider: TOSHIA OH Report Released Date/Time: Sep 05, 2020 03:18 PM Reporting Lab: [facility] [address] [facility] [address] Performing Lab: [facility] [address] [facility] [address] CHOLESTEROL 119 mg/dL 0-199 TRIGLYCERIDE 131 mg/dL 0-149 HDL CHOLESTEROL 33 mg/dL L >40 LDL CHOLESTEROL (CALC) 60 mg/dl 0-129 October 09, 2020 12:18 PM [facility] IRON+TIBC(P) Specimen Type: PLASMA Comment: Tests performed on Kohli Homemaking Rehabilitation Consultant (405) SN:[id number] Ordering Provider: TOSHIA OH Report Released Date/Time: Sep 05, 2020 04:22 PM Reporting Lab: [facility] [address] [facility] [facility] [address] Performing Lab: [facility] [address] [address] IRON 97 ug/dL 40-160 TIBC 332 ug/dL 204-475 IRON SATURATION(P) 29 % >15 October 09, 2020 12:18 PM [facility] FERRITIN Specimen Type: SERUM Comment: Tests performed on Kohli Qoof (405) SN:[id number] Ordering Provider: TOSHIA OH Report Released Date/Time: Sep 05, 2020 04:22 PM Reporting Lab: [facility] [address] [facility] [facility] [address] Performing Lab: [facility] [address] [facility] [place] [address] FERRITIN 267.2 ng/mL 20-300 October 09, 2020 12:18 PM [facility] URIC ACID Specimen Type: PLASMA Comment: Tests performed on Kohli Homemaking Rehabilitation Consultant (405) SN:[id number] Ordering Provider: TOSHIA OH Report Released Date/Time: Sep 05, 2020 04:22 PM Reporting Lab: [facility] [address] [facility] [facility] [address] Performing Lab: [facility] [address] [facility] [facility] [address] URIC ACID 6.1 mg/dl 3.3-8.7 October 09, 2020 12:18 PM [facility] ALBUMIN Specimen Type: PLASMA Comment: Tests performed on Kohli Homem[employer] Rehabilitation Consultant (405) SN:[id number] Ordering Provider: TOSHIA OH Report Released Date/Time: Sep 05, 2020 04:22 PM Reporting Lab: [facility] [address] [facility] [address] Performing Lab: [facility] [address] [facility] [facility] [address] ALBUMIN 3.9 g/dL 3.2-5.0 October 09, 2020 12:18 [facility] V[facility] D 25-[place]([facility]) Specimen Type: SERUM PM [facility] Comment: Tests performed on Kohli Homemaking Rehabilitation Consultant (405) SN:[id number] Ordering Provider: TOSHIA OH Report Released Date/Time: Sep 05, 2020 04:22 PM Reporting Lab: [facility] [address] [facility] [address] Performing Lab: [facility] [address] [address] VIT D 25-[place]([facility]) 12.9 ng/mL L -50 October 09, 2020 12:18 [facility]) Specimen Type: SERUM PM [facility] Comment: Tests performed on Kohli Homemaking Rehabilitation Consultant (405) SN:[id number] Ordering Provider: TOSHIA OH Report Released Date/Time: Sep 05, 2020 04:22 PM Reporting Lab: [facility] [address] [facility] [facility] [address] Performing Lab: [facility] [address] [address] PTH-INTACT(WRJ) 95.9 pg/mL H 8.7-77.1 October 09, 2020 12:18 [facility] URINALYSIS W/REFLEX TO Specimen Type: URINE [facility] No comment enter ed. Ordering Provider: TOSHIA OH Report Released Date/Time: Sep 05, 2020 04:22 PM Reporting Lab: [facility] [address] [facility] [address] Performing Lab: [facility] [address] [facility] [address] URINE COLOR Yellow YELLOW SPECIFIC GRAVITY 1.018 [...] Reporting Lab: [facility] [address] [address] Performing Lab: [facility] [address] [address] WHITE BLOOD CELL/URINE 5 /HPF 0-5 HYALINE CAST 5 /LPF H 0-2 GRANULAR CASTS 14 /LPF NONE RED BLOOD CELL/URINE <1 /HPF 0-3 SQUAMOUS EPITHELIAL 12 /LPF Vital Signs: All taken on the encounter date This section contains inpatient and outpatient Vital Signs collected on the date of the Encounter. Date/Time Temperature Pulse Blood Respiratory SP02 Pain Height Weight Gildardo dy Source Pressure Rate Mass Index October 09 F 77 157/80 18 /min 96 % 0 249.4 36 [place] 2020 12:39 /min mm[Hg] lb [facility] Social History: Smoking Status (Most [...] AM [place]-TOBACCO FORMER USER [place] [facility] Tobacco Use History This section includes a history of the smoking, or tobacco-related health factors, that were collected on or before the date of the Encounter. The data comes from the [place] facility where the Encounter took place. Date/Time Smoking Status/Tobacco Use Comment [facility] Apr 09, 2020 11:00 AM VA-TOBACCO QUIT 15 YRS OR MORE [place] [facility] Jan 14, 2018 03:08 PM VA-TOBACCO FORMER USER [place] [facility] Jan 14, 2018 03:08 PM VA-TOBACCO QUIT 15 YRS OR MORE [place] [facility] Mar 16, 2017 09:08 AM QUIT TOBACCO USE > 7 YEARS AGO [facility] quit 1983Mar 04, 2016 10:28 AM QUIT TOBACCO USE > 7 YEARS AGO [place] [facility] Quit 1983Mar 10, 2005 10:47 AM HISTORY OF SMOKING [place] [facility] 1983Mar 31, 2004 09:26 AM HISTORY OF SMOKING [place] [facility] Mar 31, 2004 09:26 AM QUIT TOBACCO USE > 7 YEARS AGO [place] [facility] Aug 22, 2001 01:30 PM HISTORY OF SMOKING [place] [facility] Advance Directives: All historical and [...] Feb 23, 2014 ADVANCE DIRECTIVE EYAL MONTILLA [facility] Encounter Notes: All associated encounter notes This section contains the clinical notes associated to the Encounter. Date/Time Encounter Note(s) Provider Source October 09, 2020 01:00 PM CARDIOLOGY NOTE: PILO MITCHELL [facility] LOCAL TITLE: Cardiology Note (*T) [facility] STANDARD TITLE: CARDIOLOGY NOTE DATE OF NOTE: OCTOBER 09, 2020@13:00 ENTRY DATE: OCTOBER 08, 2020@21:46:18 AUTHOR: PILO MITCHELLIGNER: URGENCY: STATUS: COMPLETED Cardiology Follow-up HPI: Mr. Little is a 75 year old presenting for follow-up of an episode of vision loss, chest pain, pal pitations, and shortness of breath. He was seen by Dr. Villaseñor to discuss potential ROBIN and the de cision was made not to pursue one at this time. He has not had any repeat epi sodes of vision changes. His systolic blood pressures at home are mostly 115- 120s but he had two days with systolic blood pressures in the 90s without asso ciated symptoms. His pulse is mostly in the 70s. He has been working on diet and trying to eat more salad. He was told he has [facility] ap[facility] but didn't tolerate CPAP. No chest pain, palpitations, lower extremity edema. 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 Past Medical History # TIA # Bipolar vs. 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 [place] Family History: Father: of a leaky valve Mother: methotrexate and alcohol Review of Systems: General: no weight loss, no fatigue, no fever/ch ills Skin: no new rashes Head: no vision changes Cardiac: see hpi Respiratory: no cough, no wheezing GI: heartburn, diarrhea Urinary: no increased frequency, no dysuria, no hematuria MSK: no muscle weakness, no joint stiffness, no swelling Neuro: no weakness, no numbness, no loss of sens ation Allergies: Patient has answered NKA Active Outpatient Medications (excluding Supplie s): Active Outpatient Medications Status 1) BUDESONIDE 80/FORMOTER 4.5MCG 120D INH INHA LE 2 PUFFS ACTIVE BY MOUTH TWICE A DAY FOR BREATHING/RINSE MOUTH WITH WATER,SWISH AROUND AND SPIT OUT AFTER USI NG INHALER 2) KETOCONAZOLE 2% SHAMPOO SHAMPOO SMALL AMOUN T ACTIVE TOPICALLY ON MONDAYS AND THURSDAYS 3) LAMOTRIGINE 25MG TAB TAKE ONE TABLET BY ALBINA EVERY ACTIVE DAY FOR 14 DAYS, THEN TAKE TWO TABLETS EV 4) LISINOPRIL 5MG TAB TAKE ONE TABLET [...] DAY TO LOWER CHOLESTEROL 7) SERTRALINE HCL 50MG TAB TAKE THREE TABLETS BY MOUTH ACTIVE EVERY DAY FOR DEPRESSION OR ANXIETY Active Non-VA Medications Status 1) Non-VA ASPIRIN 325MG TAB 325MG BY MOUTH MANDEEP DAY ACTIVE 8 Total Medications Temp: 98 F [36.7 C] (10/09/2020 12:39) Pulse: 77 (10/09/2020 12:39) Resp: 18 (10/09/2020 12:39) BP: 157/80 (10/09/2020 12:39) General: NAD, well-appearing Head/Neck: moist mucous membranes, EOMI Respiratory: CTAB, no wheezes/rales/rhonchi Cardiovascular: regular rhythm, normal S1,S2, no murmurs, no lower extremity edema Abdomen/GI/: soft, non-te nder, non-distended, normal bowel sounds throughout Musculoskeletal: +2 bilateral radial pulses Labs: NA: 139 (05/02/20 13:53) K: 4.3 (05/02/20 13:53) CL: 104 (05/02/20 13:53) CO2: 28 (05/02/20 13:53) BUN: 19 (05/02/20 13:53) CREATI: 1.22 (05/02/20 13:53) GLU: 93 (05/02/20 13:53) CHOL: 194 (05/02/20 13:53) HDL: 39 (05/02/20 13:53) LDL: 122 (05/02/20 13:53) TRI (05/02/20 13:53) AST: 30 (05/02/20 13:53) ALT: 27 (05/02/20 13:53) WBC: 5.9 (05/02/20 13:53) HCT: 44.6 (05/02/20 13:53) HGB: 14.5 (05/02/20 13:53) PLT: 241 (05/02/20 13:53) TSH: 2.02 (05/02/20 13:52) Imaging/Impression, r/o acute CVA: -Brain MRI: Unremarkable MRI of brain -Brain MRA: WNL anatomic variation (of [place] of [place]) -MRA neck: No evidence of dissection, occlusion or significant stenosis -Chest XR: no acute pulm findings -Head CT: No acute intracranial process 14 day ambulatory monitor (07/12/2020): no atrial fibrillation, sinus rhythm, average heart rate 68bpm triggered events corre sponded to sinus rhythm, rare PACs and PVCs TTE (2007): concentric LVH, LVEF 67%, normal gre at vessels, tricuspid AV Nuclear stress (2007): negative for ischemia Assessment: 1. TIA/amaurosis fugax: On a spirin, completed 21 days of plavix. No recurrence of symptoms. No evidence of atrial fibrillation on 2 week monitor. 2. Hypertension: Elevated today but repo rt lower pressures at home. Goal less than 130/80 mm Hg. 3. Sleep apnea: Has been to ld he had sleep apnea in the past. Would like to be evaluated again. Plan: 1. Continue aspirin and high intensity statin fo r stroke/TIA prevention. Goal LDL less than 70. 2. Goal blood pressure less than 130/80 mm Hg. Elevated today but reports much lower numbers at home. Will need continued monitoring through his PCP's office. 3. Referral to sleep clinic placed. 4. Encouraged heart healthy diet and regular exe rcise. RTC PRN /es/ PILO MITCHELL ATTENDING Signed: 10/10/2020 00:37
--- OUTSIDE RECORDS SUMMARY | 2020-12-05 21:41 | XMS_ITS | Encounter Summary ---
:1945 Author Organization Department [facility] Address [address] [place] [address] Care Team Providers Name Role Phone CHANDLER, [...] Number Dhillon ANTHEM PREFERRED BASIC May 17 [id number] [phone] OSCAR LITTLE P ATIENT [place] PROVIDER SELF 2002 22 [id number] AN (FEDERAL) ORGANIZAT ION (PPO) [place] PREFERRED BASIC May 17 [id number] [phone] OSCAR MACEDO PATIENT FEDERAL PROVIDER SELF 2002 22 4 AN ORGANIZAT ION (PPO) CAR[place]ARK-F PRESCRIPT BCBS May 17, [id number] [phone] FR ZEINAOSCAR PATIENT EP BCBS ION FEP 2010 0 [id number] AN PLAN MEDICARE MEDICARE PART Jan 15, PART A [id number] SIDNEY OSCAR PATIENT (WNR) (M) A 2008 [id number] 2 AN Selected Encounter This section includes the information on record at [place] for the Encounter. Date/Time Encounter Type Encounter Reason Provider Source Description Aug 28, 2020 10:10 Outpatient PRIMARY ELOY IRWIN AM Encounter CARE/MEDICINE IHE Encounter Template Text [...] comes from all [facility]. Appointment Date/Time Appointment Type Appointment Facili ty Name October 02, 2020 10:15 AM AMBUL[place] [facility] October 09, 2020 01:00 PM AMB[place]ORY - [place]IC[place] [facility] Oct 28, 2020 11:00 AM [place]ORY - NONE [place] [facility] Nov 04, 2020 01:00 PM AMBULATORY - [place]IATRY [place] [facility] Nov 12, 2020 08:30 AM AM[place]ORY - NONE [place] [facility] Nov 19, 2020 02:00 PM [place] [facility] Dec 05, 2020 08:00 AM AM[place]ORY - NONE [place] [facility] Dec 11, 2020 12:00 PM AMBULATORY - [place]IATRY [place] [facility] Dec 23, 2020 11:00 AM AM[place] [facility] Dec 30, 2020 10:15 AM AM[place]ORY - NONE [place] [facility] Jan 28, 2021 10:00 AM AM[place]ORY - NONE [place] [facility] Feb 26, 2021 01:30 PM [facility] Active, Pending, and Scheduled Orders This section includes a listing of several types of active, pending, and scheduled orders, including clinic medications orders, diagnostic test orders, procedure orders and consult orders; where the start date of the order is 45 days before the date of the Encounter or 45 days after the date of the Encounter. The data comes from all [place] treatment facilities. Test Date/Time Test Type Test Details Facility Name Jul 29, 2020 12:57 PM Consult Order COMMUNITY CARE-COLONOSCOPY [facility] SCREENING Cons Technical Project Manager's Choice October 09, 2020 01:31 PM Consult Order SLEEP CLINIC OUTPATIENT [facility] Cons Technical Project Manager's Choice Social History: Smoking Status (Most current) [...] 11:00 AM [place]-TOBACCO FORMER USER [facility] Tobacco Use History This section includes a history of the smoking, or tobacco-related health factors, that were collected on or before the date of the Encounter. The data comes from the [place] facility where the Encounter took place. Date/Time Smoking Status/Tobacco Use Comment [facility] Apr 09, 2020 11:00 AM VA-TOBACCO QUIT 15 YRS OR MORE [place] [facility] Jan 14, 2018 03:08 PM VA-TOBACCO FORMER USER [place] [facility] [facility] Jan 14, 2018 03:08 PM VA-TOBACCO QUIT 15 YRS OR MORE [facility] [place] [facility] Mar 16, 2017 09:08 AM QUIT TOBACCO USE > 7 YEARS AGO [place] [facility] quit 1983Mar 04, 2016 10:28 AM QUIT TOBACCO USE > 7 YEARS AGO [place] [facility] Quit 1983Mar 10, 2005 10:47 AM HISTORY OF SMOKING [place] [facility] 1983Mar 31, 2004 09:26 AM HISTORY OF SMOKING [place] [facility] Mar 31, 2004 09:26 AM QUIT TOBACCO USE > 7 YEARS AGO [facility] Aug 22, 2001 01:30 PM HISTORY OF SMOKING [place] [facility] Advance Directives: All historical and current [...] 23, 2014 ADVANCE DIRECTIVE EYAL MONTILLA [facility] Encounter Notes: All associated encounter notes This section contains the clinical notes associated to the Encounter. Date/Time Encounter Note(s) Provider Source Aug 28, 2020 10:10 AM PRIMARY CARE SECURE MESSAGING: [place]SA [place] LOCAL TITLE: PRIMARY CARE SECURE MESSAGING [facility] STANDARD TITLE: PRIMARY CARE SECURE MESSAGING DATE OF NOTE: AUG 28, 2020@10:10:57 ENTRY DATE: AUG 28, 2020@10:10:57 AUTHOR: ELOY IRWIN EXP COSIGNER: URGENCY: STATUS: COMPLETED PRIMARY CARE SECURE MESSAGING Has ADDENDA ------Original Message Sent: 08/28/2020 09:28 AM From: KATHY LITTLE Gina To: Tevin [email or web address] Subject: General Inquiry I think I will take the DIY route to wit: BUILT FOR SLEEP APNEA [email or web address] LOOKEE?? Wrist Sleep Oxygen Monitor Specifically designed for Sleep Apnea, the Looke e?? Wrist Monitor offers precision and comfort. Track oxygen levels and heart rate and be alerted with a gentle vibration when levels drop below a preset value. This will encourage you to shift sleep position to help bring those leve ls back into proper range. I'm not looking for an endorsement, but sometime s one needs to follow their gut. Thank you for the information Kathy Little Patient /es/ ELOY IRWIN RN Signed: 08/28/2020 10:10 Receipt Acknowledged By: 08/28/2020 11:41 /es/ TOSHIA OH Nurse Practitioner Resident 08/29/2020 13:46 /es/ Manny zapata MSN, MUD JACK NOZZLEMAN Nurse Practitioner Faculty 08/28/2020 ADDENDUM STATUS: COMPLETED I haven't seen much research about this wrist ox ygen monitoring, and can tell you that at this time, from a medical standpoint it is not a recommended treatment for JAY JAY. The only evidence bas ed treatments I can recommend would be through talking to sleep medicine, if not for th e CPAP then potentially alternative means like an oral device. Sleep medicine will be happy to talk with you an d come up with an alternative solution. If you'd like an appointment with them , you can call them at the number I gave yesterday or I can have them reach out to you to schedule something, just let me know. /chris/ TOSHIA OH Nurse Practitioner Resident Signed: 08/28/2020 13:20 /es/ Manny Arteaga MSN, MUD JACK NOZZLEMAN Nurse Practitioner Faculty Cosigned: 08/29/2020 15:09 Receipt Acknowledged By: 08/29/2020 10:50 /chris/ ZULEMA COLLADO Registered Nurse 08/29/2020 ADDENDUM STATUS: COMPLETED Provider's message sent to patient via [employer] /chris/ ZULEMA GLASGOW Registered Nurse Signed: 08/29/2020 10:51
--- OUTSIDE RECORDS SUMMARY | 2020-12-05 21:41 | XMS_ITS | Encounter Summary ---
:1945 Author Organization Department [facility] rs Address [address] [place] [id number] Care Team Providers Name Role Phone CHANDLER, [...] Number Dhillon ANTHEM PREFERRED BASIC May 17 [id number] [phone] OSCAR LITTLE P ATIENT [place] PROVIDER SELF 2002 [id number] [phone] AN (FEDERAL) ORGANIZAT ION (PPO) [place] PREFERRED BASIC May 17 [id number] [phone] OSCAR MACEDO PATIENT FEDERAL PROVIDER SELF 2002 22 4 AN ORGANIZAT ION (PPO) CAREMARK-F PRESCRIPT BCBS May 17, [id number] [phone] ZEINAOSCAR PATIENT EP BCBS ION FEP 2010 0 [id number] AN PLAN MEDICARE MEDICARE PART Jan 15, PART A [id number] SIDNEY OSCAR PATIENT (WNR) (M) A 2008 [id number] 2 AN Selected Encounter This section includes the information on record at [place] for the Encounter. Date/Time Encounter Type Encounter Reason Provider Source Description Sep 03, 2020 02:34 Outpatient PRIMARY TYRESE HOWELL PM Encounter CARE/MEDICINE IHE Encounter Template Text not used by [place] Plan of Treatment: Future Appointments (+ 6 [...] 20 appointments. The data comes from all [facility]. Appointment Date/Time Appointment Type Appointment Facili ty Name October 02, 2020 10:15 AM AM[place] [facility] October 09, 2020 01:00 PM [place]IC[place] [facility] Oct 28, 2020 11:00 AM [place] [facility] Nov 04, 2020 01:00 PM AM[place] [facility] Nov 12, 2020 08:30 AM [place] [facility] Nov 19, 2020 02:00 PM [place] [facility] Dec 05, 2020 08:00 AM [place] [facility] Dec 11, 2020 12:00 PM AM[place]UL[place] [facility] Dec 23, 2020 11:00 AM [place] [facility] Dec 30, 2020 10:15 AM [place] NONE [place] [facility] Jan 28, 2021 10:00 AM AM[place]ORY - NONE [place] [facility] Feb 26, 2021 01:30 PM AM[facility]ORY - NONE [place] [facility] Active, [...] 12:57 PM Consult Order COMMUNITY CARE-COLONOSCOPY [facility] SCREENING Cons Electrical Inspector's Choice October 09, 2020 01:31 PM Consult Order [facility]INIC [facility] Cons Electrical Inspector's Choice Social History: Smoking Status (Most [...] 11:00 AM VA-TOBACCO FORMER USER [place] [facility] Tobacco Use History This section includes a history of the smoking, or tobacco-related health factors, that were collected on or before the date of the Encounter. The data comes from the [place] facility where the Encounter took place. Date/Time Smoking Status/Tobacco Use Comment [facility] Apr 09, 2020 11:00 AM VA-TOBACCO QUIT 15 YRS OR MORE [place] [facility] Jan 14, 2018 03:08 PM VA-TOBACCO FORMER USER [place] [facility] Jan 14, 2018 03:08 PM VA-TOBACCO QUIT 15 YRS OR MORE ADITYA [place] [facility] Mar 16, 2017 09:08 AM QUIT TOBACCO USE > 7 YEARS AGO [facility] [place] [facility] quit 1983Mar 04, 2016 10:28 AM QUIT TOBACCO USE > 7 YEARS AGO [place] [facility] Quit 1983Mar 10, 2005 10:47 AM HISTORY OF SMOKING [facility] [place] [facility] 1983Mar 31, 2004 09:26 AM HISTORY OF SMOKING [place] [facility] Mar 31, 2004 09:26 AM QUIT TOBACCO USE > 7 YEARS AGO [facility] Aug 22, 2001 01:30 PM HISTORY OF SMOKING WHITE [place] SCHWARTZER [facility] Advance Directives: All [...] Feb 23, 2014 ADVANCE DIRECTIVE EYAL MONTILLA [facility] Encounter Notes: All associated encounter notes This section contains the clinical notes associated to the Encounter. Date/Time Encounter Note(s) Provider Source Sep 03, 2020 02:34 PM PRIMARY CARE SECURE MESSAGING: JEANETH HOWELL [facility] TITLE: PRIMARY CARE SECURE MESSAGING [facility] STANDARD TITLE: PRIMARY CARE SECURE MESSAGING DATE OF NOTE: SEP 03, 2020@14:34:28 ENTRY DATE: SEP 03, 2020@14:34:29 AUTHOR: TYRESE HOWELL EXP COSIGNER: URGENCY: STATUS: COMPLETED ------Original Message Sent: 08/29/2020 01:50 PM From: KATHY LITTLE To: Tevin [email or web address] Subject: Med Ajustment During a recent video conference with neurology, the doctor suggested that I return to a full-dose aspirin, and increase the statin strength. Let me know if you concur with the oral medication adjustment. If you do, I will need a new Rx for the stronger statin. Spring is here as are my allergies. I have tolerated many oral antihistamine s in the past, including Zyrtec. Based on my current or adjusted medication list is it alright to use Zyrtec? Kathy Little Patient /es/ TYRESE HOWELL Staff Nurse Signed: 09/03/2020 14:34 Receipt Acknowledged By: * AWAITING SIGNATURE * MANNY ARTEAGA
--- OUTSIDE RECORDS SUMMARY | 2020-12-05 21:41 | XMS_ITS | Encounter Summary ---
:1945 Author Organization Department [facility] rs Address [address] [place] [id number] Care Team Providers Name Role Phone CHANDLER, [...] Number Dhillon ANTHEM PREFERRED BASIC May 17 [id number] [phone] OSCAR LITTLE P ATIENT [place] PROVIDER SELF 2002 22 [id number] AN (FEDERAL) ORGANIZAT ION (PPO) [place] PREFERRED BASIC May 17 [id number] [phone] OSCAR MACEDO PATIENT FEDERAL PROVIDER SELF 2002 22 4 AN ORGANIZAT ION (PPO) [place]-F PRESCRIPT BCBS May 17, [id number] [phone] FR OSCAR PASTRANA PATIENT EP BCBS ION FEP 2010 0 [phone] AN PLAN MEDICARE MEDICARE PART Jan 15, PART A [id number] OSCAR LITTLE PATIENT (WNR) (M) A 2008 [id number] 2 AN Selected Encounter This section includes the information on record at [facility] for the Encounter. Date/Time Encounter Type Encounter Reason Provider Source Description October 02, 2020 Outpatient TELEPHONE ICD-10-CM F31.9 SAMUEL ARCE 10:15 AM Encounter Bipolar disorder, RE L unspecified with Provider Comments: Bipolar Disorder, unspecified IHE Encounter Template Text not used by [place] Assessments - Encounter Diagnoses This section includes the primary and secondary diagnoses documented forthe Encounter. Date/Time Primary/Secondary Diagnosis Name Provider Source Diagnosis October 02, 2020 PRIMARY Bipolar disorder, LUIS CARLOS ARCE IVER 10:15 AM unspecified L [facility] October 02, 2020 SECONDARY Other usp LUIS CARLOS ARCE ER 10:15 AM (current) drug L [facility] therapy Plan of Treatment: Future Appointments (+ [...] 20 appointments. The data comes from all [facility]. Appointment Date/Time Appointment Type Appointment Facili ty Name October 09, 2020 01:00 PM AMBULATORY [place]IC[place] [facility] Oct 28, 2020 11:00 AM AM[place]UL[place]ORY - NONE [place] [facility] Nov 04, 2020 01:00 PM AM[place]UL[place]AT[place] [facility] Nov 12, 2020 08:30 AM AMBULATORY - NONE [place] [facility] Nov 19, 2020 02:00 PM AM[place]UL[place] - [place] [facility] Dec 05, 2020 08:00 AM AMBULATORY - NONE [place] [facility] Dec 11, 2020 12:00 PM AMBULAT[place] - [place]IATRY [place] [facility] Dec 23, 2020 11:00 AM AMBULAT[place] [facility] Dec 30, 2020 10:15 AM AMBULATORY - NONE [place] [facility] Jan 28, 2021 10:00 AM AMBULATORY - NONE [place] [facility] Feb 26, 2021 01:30 PM AMBULATORY - NONE [place] [facility] Active, Pending, and Scheduled Orders This [...] 01:31 PM Consult Order SLEEP CLINIC OUTPATIENT [facility] Cons Plastics Sheet Finishing Press Operator's Choice Lab Results: +/- 30 days of [...] Interpretation Reference Range Comment October 09, 2020 [facility] MICROALBUMIN/CREATININE RATIO Specimen Type: URINE 12:19 PM [facility] PANEL Comment: Tests performed on Enviance (405) SN:[id number] Ordering Provider: TOSHIA OH Report Released Date/Time: Sep 05, 2020 04:22 PM Reporting Lab: [facility] [address] [facility] [address] Performing Lab: [facility] [address] [facility] [address] CREATININE (URINE,RANDOM) 178.0 mg/dL MICROALBUMIN, QUANTITATIVE 2.1 mg/dL 0.0 -29.9 MICROALBUMIN/CREATININE RATIO 11.8 mg/g 0.0-29.9 October 09, 2020 [facility] P4 GLU,BUN,CREAT,LYTES,CA Specimen Type: PLASMA 12:18 PM [facility] Comment: Tests performed on Kohli My True Fit (405) SN:[id number] Ordering Provider: TOSHIA OH Report Released Date/Time: Sep 05, 2020 03:18 PM Reporting Lab: [facility] [address] [facility] [address] Performing Lab: [facility] [address] [facility] [address] UREA NITROGEN 16 mg/dL 7-25 SODIUM 140 mmol/L 135-145 POTASSIUM 4.3 mmol/L 3.5-5.0 CHLORIDE 106 mmol/L 100-110 CARBON DIOXIDE 23 mmol/L 20-30 ANION GAP 11 mmol/L 4-16 GLUCOSE 97 mg/dL 65-100 CREATININE 1.23 mg/dl 0.5-1.5 CALCIUM 9.8 mg/dL 8.5-10.5 eGFR 57 mL/min L >60 October 09, 2020 12:18 [place] LIPOPROTEIN CHOLESTEROL Specimen Type: PLASMA PM [facility] FRACT. PANEL Comment: Tests performed on Enviance (405) SN:[id number] Ordering Provider: TOSHIA OH Report Released Date/Time: Sep 05, 2020 03:18 PM Reporting Lab: [place] [facility] [address] [facility] [address] Performing Lab: [place] [facility] [address] [facility] [address] CHOLESTEROL 119 mg/dL 0-199 TRIGLYCERIDE 131 mg/dL 0-149 HDL CHOLESTEROL 33 mg/dL L >40 LDL CHOLESTEROL (CALC) 60 mg/dl 0-129 October 09, 2020 12:18 PM [facility] IRON+TIBC(P) Specimen Type: PLASMA Comment: Tests performed on Koh[employer] Fit (405) SN:[id number] Ordering Provider: TOSHIA OH Report Released Date/Time: Sep 05, 2020 04:22 PM Reporting Lab: [place] [facility] [address] [facility] [address] Performing Lab: [facility] [address] [facility] [address] IRON 97 ug/dL 40-160 TIBC 332 ug/dL 204-475 IRON SATURATION(P) 29 % >15 October 09, 2020 12:18 PM [facility] FERRITIN Specimen Type: SERUM Comment: Tests performed on [employer] Fit (405) SN:[id number] Ordering Provider: TOSHIA OH Report Released Date/Time: Sep 05, 2020 04:22 PM Reporting Lab: [place] [facility] [address] [facility] [address] Performing Lab: [place] [facility] [address] [facility] [address] FERRITIN 267.2 ng/mL 20-300 October 09, 2020 12:18 PM [place] [facility] URIC ACID Specimen Type: PLASMA Comment: Tests performed on Kohli Income Tax Administrator (405) SN:[id number] Ordering Provider: TOSHIA OH Report Released Date/Time: Sep 05, 2020 04:22 PM Reporting Lab: [place] [facility] [address] [facility] [address] Performing Lab: [place] [facility] [address] [facility] [address] URIC ACID 6.1 mg/dl 3.3-8.7 October 09, 2020 12:18 PM [facility] ALBUMIN Specimen Type: PLASMA Comment: Tests performed on [employer] Income Tax Administrator (405) SN:[id number] Ordering Provider: TOSHIA OH Report Released Date/Time: Sep 05, 2020 04:22 PM Reporting Lab: [facility] [address] [facility] [address] Performing Lab[facility] [address] [facility] [address] ALBUMIN 3.9 g/dL 3.2-5.0 October 09, 2020 12:18 [facility] 25-OH([facility]) Specimen Type: SERUM PM [facility] Comment: Tests performed on [employer]li Income Tax Administrator (405) SN:[id number] Ordering Provider: TOSHIA OH Report Released Date/Time: Sep 05, 2020 04:22 PM Reporting Lab: [place] [facility] [address] [facility] [address] Performing Lab: [facility] [address] [facility] [address] VIT D 25-OH(J) 12.9 ng/mL L 20-50 October 09, 2020 12:18 [place] PTH-INTACT([facility]) Specimen Type: SERUM PM [facility] Comment: Tests performed on [employer] Income Tax Administrator (405) SN:[id number] Ordering Provider: TOSHIA OH Report Released Date/Time: Sep 05, 2020 04:22 PM Reporting Lab: [place] [facility] [address] [facility] [address] Performing Lab: [facility] [address] [facility] [address] PTH-INTACT([facility]) 95.9 pg/mL H 8.7-77.1 October 09, 2020 12:18 [place] URINALYSIS W/REFLEX TO Specimen Type: URINE PM [facility] CULTURE No comment enter ed. Ordering Provider: BLACK,TOSHIA A Report Released Date/Time: Sep 05, 2020 04:22 PM Reporting Lab: [facility] [address] [facility] [address] Performing Lab: [facility] [address] [facility] [address] URINE COLOR Yellow YELLOW SPECIFIC GRAVITY 1.018 1.003-1.030 UROBILINOGEN <2.0 mg/dL <2.0 URINE BILIRUBIN NEG NEG URINE KETONES NEG mg/dL NEG URINE GLUCOSE NEG mg/dL NEG PROTEIN, URINE 30 mg/dL NEG URINE PH 5.0 5-8 CLARITY HAZY Clear URINE BLOOD NEG NEG NITRITE, URINE NEG NEG WBC SCREEN NEG NEG October 09, 2020 12:18 PM [facility] UAMICROSCOPIC Specimen Type: URINE No comment enter ed. Ordering Provider: TOSHIA OH Report Released Date/Time: Sep 05, 2020 04:22 PM Reporting Lab: [facility] [address] [facility] [address] Performing Lab: [facility] [address] [facility] [address] WHITE BLOOD CELL/URINE 5 /HPF 0-5 HYALINE [...] took place. Date/Time Current Smoking Status Comment [facility] Apr 09, 2020 11:00 AM VA-TOBACCO FORMER USER [facility] Tobacco Use History This section includes a history of the smoking, or tobacco-related health factors, that were collected on or before the date of the Encounter. The data comes from the [place] facility where the Encounter took place. Date/Time Smoking Status/Tobacco Use Comment [facility] Apr 09, 2020 11:00 AM [place]-TOBACCO QUIT 15 YRS OR MORE [facility] Jan 14, 2018 03:08 PM VA-TOBACCO FORMER USER [facility] Jan 14, 2018 03:08 PM VA-TOBACCO QUIT 15 YRS OR MORE ADITYA ARREOLA [facility] Mar 16, 2017 09:08 AM QUIT TOBACCO USE > 7 YEARS AGO ADITYA ARREOLA [facility] quit 1983Mar 04, 2016 10:28 AM QUIT [...] ALL of a patient's completed or amended [place] Advance and Rescinded Directives. The entries below indicate that a directive exists for the patient, but an actual copy is not included with this document. The data comes from all [place] facilities. Date Advance Directives Provider Source Feb 23, 2014 ADVANCE DIRECTIVE EYAL MONTILLA ADITYA ARREOLA [facility] Encounter Notes: All associated encounter notes This section contains the clinical notes associated to the Encounter. Date/Time Encounter Note(s) Provider Source October 02, 2020 04:28 PM MENTAL HEALTH TELEPHONE ENCOUNTER NOTE: LUIS CARLOS [facility] LOCAL TITLE: PMHC Telephone Note [facility] STANDARD TITLE: MENTAL HEALTH TELEPHONE ENCOUNTE R NOTE DATE OF NOTE: OCTOBER 02, 2020@16:28 ENTRY DATE: OCTOBER 02, 2020@16:28:33 AUTHOR: LUIS CARLOS ARCE EXP COSIGNER: URGENCY: STATUS: COMPLETED Duration: 10 min' Dx: BAD Called [facility] to discuss options for rescheduli ng appt next week vs. seeing another provider. He stated he had not yet star ashwin lamictal, but was feeling pretty good on the sertraline 150 mg. He noted that his mood was clearly better. He reported signifcant problems with loose stool howvere, noting that he was having several loose stools daily. He th ought that this pre-dated the sertraline, but was not sure. It is worse off b upropion (which can be constipating). Discussed options, incl taper of f sertraline. He opted to reduce sertraline from 150 mg to 100 mg and monitor sx. He preferred to schedule a VVC with me later in Oct to follow up. Plan: Reduce sertraline Cancel appt next week Add VVC appt on 11/04chris/ LUIS CARLOS ARCE Staff Physician Signed: 10/02/2020 16:32
--- OUTSIDE RECORDS SUMMARY | 2020-12-05 21:41 | XMS_ITS | Encounter Summary ---
:1945 Author Organization Department [facility] rs Address [address] [place] [id number] Care Team Providers Name Role Phone CHANDLER, [...] Number Dhillon ANTHEM PREFERRED BASIC May 17 [id number] [phone] OSCAR LITTLE P ATIENT [place]BS [place] PROVIDER SELF 2002 [id number] AN (FEDERAL) ORGANIZAT ION (PPO) [place]BS OF [place] PREFERRED BASIC May 17 [id number] [phone] OSCAR MACEDO PATIENT FEDERAL PROVIDER SELF 2002 22 4 AN ORGANIZAT ION (PPO) [place]-F PRESCRIPT BCBS May 17, [id number] [phone] FR ZEINAOSCAR PATIENT EP BCBS ION FEP 2010 0 [id number] AN PLAN MEDICARE MEDICARE PART Jan 15, PART A [id number] OSCAR LITTLE PATIENT (WNR) (M) A 2008 [id number] 2 AN Selected Encounter This section includes the information on record at NH for the Encounter. Date/Time Encounter Type Encounter Reason Provider Source Description Sep 05, 2020 02:38 Outpatient TELEPHONE TRIAGE AMARA MOELLER PM Encounter LORI IHE Encounter Template Text not used by NH Plan of Treatment: Future Appointments (+ 6 [...] AM[place] [facility] October 09, 2020 01:00 PM [place] [facility] Oct 28, 2020 11:00 AM AMBULATORY - NONE [facility] Nov 04, 2020 01:00 PM AMBUL[facility] - [facility]ATRY [facility] Nov 12, 2020 08:30 AM AMBULATORY - NONE [facility] Nov 19, 2020 02:00 PM [place] [facility] Dec 05, 2020 08:00 AM [facility] [place] [facility] [facility] Dec 11, 2020 12:00 PM [place] [facility] Dec 23, 2020 11:00 AM [place] [facility] Dec 30, 2020 10:15 AM [facility] NONE [place] [facility] Jan 28, 2021 10:00 AM AMBULATORY - NONE [facility] Feb 26, 2021 01:30 PM AMBULATORY - NONE [facility] Active, Pending, and Scheduled Orders [...] 12:57 PM Consult Order COMMUNITY CARE-COLONOSCOPY [place] [facility] SCREENING Cons Value Stream Manager's Choice October 09, 2020 01:31 PM Consult Order SLEEP CLINIC OUTPATIENT [facility] Cons Value Stream Manager's Choice Social History: Smoking Status (Most [...] 11:00 AM VA-TOBACCO FORMER USER [place] [facility] Tobacco Use History This section includes a history of the smoking, or tobacco-related health factors, that were collected on or before the date of the Encounter. The data comes from the [place] facility where the Encounter took place. Date/Time Smoking Status/Tobacco Use Comment [facility] Apr 09, 2020 11:00 AM VA-TOBACCO QUIT 15 YRS OR MORE [place] [facility] Jan 14, 2018 03:08 PM VA-TOBACCO FORMER USER [place] [facility] Jan 14, 2018 03:08 PM VA-TOBACCO QUIT 15 YRS OR MORE [place] [facility] Mar 16, 2017 09:08 AM QUIT TOBACCO USE > 7 YEARS AGO [place] [facility] quit 1983Mar 04, 2016 10:28 AM QUIT TOBACCO USE > 7 YEARS AGO [place] [facility] Quit 1983Mar 10, 2005 10:47 AM HISTORY OF SMOKING [place] [facility] 1983Mar 31, 2004 09:26 AM HISTORY OF SMOKING [place] [facility] Mar 31, 2004 09:26 AM QUIT TOBACCO USE > 7 YEARS AGO [facility] Aug 22, 2001 01:30 PM H[place]ORY OF SMOKING [place] [facility] Advance Directives: All historical and current Section Date Range: From patient's date of to the date document was created. This section includes ALL of a patient's completed or amended NH Advance and Rescinded Directives. The entries below indicate that a directive exists for the patient, but an actual copy is not included with this document. The data comes from all [place] facilities. Date Advance Directives Provider Source Feb 23, 2014 ADVANCE DIRECTIVE EYAL MONTILLA [facility] Encounter Notes: All associated encounter notes This section contains the clinical notes associated to the Encounter. Date/Time Encounter Note(s) Provider Source Sep 05, 2020 02:38 PM TELEPHONE ENCOUNTER NOTE: LÁZARO MOELLER NN [facility] LOCAL TITLE: V[facility]N 1 [facility] STANDARD TITLE: TELEPHONE ENCOUNTER NOTE DATE OF NOTE: SEP 05, 2020@14:38:43 ENTRY DATE: SEP 05, 2020@15:08:23 AUTHOR: LÁZARO MOELLER EXP COSIGNER: URGENCY: STATUS: COMPLETED VISN 1 CL[facility]ICAL CONTACT CENTER Has ADDEND A Type of call: SYMPTOM. Caller Response: *AGREE The patient, KATHY LITTLE ([id number]) Phone: called the call center. Comments: Patient is calling stating that he has been gett ing dizzy getting out of his chair. The patient took his blood pressure right after it was 120/54 73 then stood up 83/68 91 and then checked one final serina e sitting down 125/77 87. Please call him back at [phone] Evaluation/Management Code: HC PRO PHONE CALL 21 -30 MIN ([id number]). Original call started at: SEP 05, 2020 @ 14:32 ( Call was suspended) - MAXIME ACOSTA SEP 05, 2020@14:32:02 - AUG 162020@14:34:34 Ending at: 09/05/2020 @ 3:06:16 PM Length: 30 minutes. (Call was suspended. This ca ll length is the total amount of time spent active in [facility] Record Manage r.) Author: LÁZARO MOELLER Caller Area: * [place] The following identifiers were used to verify th is patient: SSN. Chief Complaint: Not applicable to call. Nurse Notes: Patient called and was concerned that he hasn't heard from his PCP regarding cold or URI symptoms. Last secure message was on 09/03 with pending response about taking Zyrtec for allergy symptoms and inc reasing ASA back to 325 mg's, he adds on phone call if Tussin liquid is ok to be taking. He reports feeling lightheaded with position changes for two weeks, specifically when going from sitting to standing position. It happened again today and his BP's went from 120/54 sitting to 83/68 standing(with dizziness) then back to 125/77 when sitting(dizziness resolved). We began line of tr iage to fluids and recent sickness. He now feels he has URI and not allerg ies. He has cough with yellow sputum, sinus secretions of clear, sinus pressur e and last week temp of 101.0(temp 97.0 on the phone). He also began usi ng Fluticasone spray recently as well for stuffy nose and breathing issues(rec ent question regarding sleep apnea on chart). Will attempt to Teams message mony santiago or practice nurse. Thanks. Class Code: Other specified counseling. Contact Patient's Email Address: [email or web address] /es/ LÁZARO MOELLER REGISTERED NURSE Signed: 09/05/2020 15:08 Receipt Acknowledged By: * AWAITING SIGNATURE * TOSHIA [place] 09/05/2020 16:07 /es/ Manny zapata MSN, BURGLAR ALARM SUPERINTENDENT Nurse Practitioner Faculty * AWAITING SIGNATURE * ZULEMA GLASGOW 09/05/2020 ADDENDUM STATUS: COMPLETED TC to pt. I feel awful, ongoing for about a we ek- not feeling any better or worse. C/o cough, sneezing, sinus conges tion. Had a fever a week ago tmax 101- none since. +Worsened dizziness over past week w ith these symptoms, see orthostatics on nurse call danielle moore. No falls but a couple close calls, he'll sit back down on the chair. On phone with me , BP is 123/74, HR 74 seated. Standing with fleeting dizziness <10 seconds, 107/70, HR 89. No No chills/weakness, SOB, chest tightness, chest pressure, palpitations/he art pounding. Has been vaccinated with Covid-19 vaccin e, dose #2 about a month ago. No known exposures. He's been taking robutussin for the cough which helps, drinking 3-4 cups water/day. Has cetirizine hasn't taken it yet. C ontinues to take fluticasone nasal spray and symbicort 2 puffs BID. Hasn't ne eded albuterol. Will try taking lisinopril 5mg at night. We reviewed slow transitions which he generally does already, incr easing fluid intake to 6-8 cups/day, treating water as medicine right now. I off ered him an appt tomorrow but we decided together it wasn't necessary at this time. Advised to call s steven he have any further concerns or worsening symptoms of dizziness, monika rtness of breath, chest pain, pressure, palpitations. /chris/ TOSHIA [place] Nurse Practitioner Resident Signed: 09/05/2020 16:14 /chris/ Manny Arndt MSN, BURGLAR ALARM SUPERINTENDENT Nurse Practitioner Faculty Cosigned: 09/05/2020 16:19 09/05/2020 ADDENDUM STATUS: COMPLETED We also addressed other concerns: 1. Re-start asa 325mg per neurology recs, well-t olerated previously 2. Increase rosuvastatin to 40mg, will receive new Rx in mail and start now with full tablets. Will get labs/lipids drawn when he 's at [facility] on 10/09 /chris/ TOSHIA [place] Nurse Practitioner Resident Signed: 09/05/2020 16:20 /chris/ Manny Arndt MSN, BURGLAR ALARM SUPERINTENDENT Nurse Practitioner Faculty Cosigned: 09/05/2020 16:40
--- OUTSIDE RECORDS SUMMARY | 2020-12-05 21:42 | XMS_ITS | Encounter Summary ---
:1945 Author Organization Department [facility] rs Address [address] [place] [id number] Care Team Providers Name Role Phone CHANDLER, [...] Number Dhillon ANTHEM PREFERRED BASIC May 17 [id number] [phone] OSCAR LITTLE P ATIENT [place]BS [place] PROVIDER SELF 2002 22 [id number] AN (FEDERAL) ORGANIZAT ION (PPO) [place] PREFERRED BASIC May 17 [id number] [phone] OSCAR MACEDO PATIENT FEDERAL PROVIDER SELF 2002 22 4 AN ORGANIZAT ION (PPO) [place]-F PRESCRIPT BCBS May 17, [id number] [phone] FR ZEINAOSCAR PATIENT EP BCBS ION FEP 2010 0 [id number] AN PLAN MEDICARE MEDICARE PART Jan 15, PART A [id number] SIDNEY OSCAR PATIENT (WNR) (M) A 2008 [id number] 2 AN Selected Encounter This section includes the information on record at [place] for the Encounter. Date/Time Encounter Type Encounter Reason Provider Source Description Aug 15, 2020 04:31 Outpatient PRIMARY NINI DOMÍNGUEZ PM Encounter CARE/MEDICINE IHE Encounter Template [...] 20 appointments. The data comes from all [facility]. Appointment Date/Time Appointment Type Appointment Facili ty Name Aug 21, 2020 10:00 AM [place] [facility] Aug 21, 2020 11:00 AM [place] [facility] October 02, 2020 10:15 AM [place] [facility] October 09, 2020 01:00 PM [place] [facility] Oct 28, 2020 11:00 AM [place] [facility] Nov 04, 2020 01:00 PM AM[place] [facility] Nov 12, 2020 08:30 AM [place] [facility] Nov 19, 2020 02:00 PM [place] [facility] Dec 05, 2020 08:00 AM [place]ORY [place] N[place] [facility] Dec 11, 2020 12:00 PM [place] [facility] Dec 23, 2020 11:00 AM [place] [facility] Dec 30, 2020 10:15 AM AM[place]ORY - NONE [place] [facility] Jan 28, 2021 10:00 AM [place] - [place] [facility] Active, Pending, and Scheduled [...] Consult Order COMMUNITY CARE-COLONOSCOPY [place] [facility] SCREENING Cons Team Manager's Choice Social History: Smoking Status (Most [...] 11:00 AM VA-TOBACCO FORMER USER [place] [facility] Tobacco Use History This section includes a history of the smoking, or tobacco-related health factors, that were collected on or before the date of the Encounter. The data comes from the [place] facility where the Encounter took place. Date/Time Smoking Status/Tobacco Use Comment [facility] Apr 09, 2020 11:00 AM VA-TOBACCO QUIT 15 YRS OR MORE [place] [facility] Jan 14, 2018 03:08 PM VA-TOBACCO FORMER USER [place] [facility] [facility] Jan 14, 2018 03:08 PM VA-TOBACCO QUIT 15 YRS OR MORE [facility] Mar 16, 2017 09:08 AM QUIT TOBACCO USE > 7 YEARS AGO [facility] quit 1983Mar 04, 2016 10:28 AM QUIT TOBACCO USE > 7 YEARS AGO [facility] Quit 1983Mar 10, 2005 10:47 AM HISTORY OF SMOKING [place] [facility] 1983Mar 31, 2004 09:26 AM H[place]ORY OF SMOKING [place] [facility] Mar 31, 2004 09:26 AM QUIT TOBACCO USE > 7 YEARS AGO [facility] Aug 22, 2001 01:30 PM HISTORY OF SMOKING [place] [facility] Advance Directives: All historical and current [...] Feb 23, 2014 ADVANCE DIRECTIVE EYAL MONTILLA [facility] Encounter Notes: All associated encounter notes This section contains the clinical notes associated to the Encounter. Date/Time Encounter Note(s) Provider Source Aug 15, 2020 04:31 PM PRIMARY CARE SECURE MESSAGING: [facility] LOC[facility] TITLE: PRIMARY CARE SECURE MESSAGING STANDARD TITLE: PRIMARY CARE SECURE MESSAGING DATE OF NOTE: AUG 15, 2020@16:31 ENTRY DATE: AUG 15, 2020@16:31:17 AUTHOR: NINI DOMÍNGUEZ EXP COSIGNER: URGENCY: STATUS: COMPLETED ------Original Message Sent: 08/15/2020 02:25 PM From: KATHY LITTLE To: Tevin [email or web address] Subject: Hearing Test How do I get an appointment for a hearing test? Kathy Little Patient ------Original Message Sent: 08/15/2020 04:30 PM From: NINI DOMÍNGUEZ To: KATHY LITTLE Subject: Hearing Test Phone the call center Ext [phone] and they can transfer you to the audiology desk to schedule an appointment. You do not need a co nsult. Nini Domínguez, RN F Team 2 /es/ NINI DOMÍNGUEZ BSN RN Signed: 08/15/2020 16:31
--- OUTSIDE RECORDS SUMMARY | 2020-12-05 21:42 | XMS_ITS | Encounter Summary ---
:1945 Author Organization Department [facility] rs Address [address] [place] [address] Care Team Providers Name Role Phone CHANDLER, [...] Number Dhillon ANTHEM PREFERRED BASIC May 17 [id number] [phone] OSCAR LITTLE P ATIENT [place] PROVIDER SELF 2002 22 [id number] AN (FEDERAL) ORGANIZAT ION (PPO) BCBS OF [place] PREFERRED BASIC May 17 [id number] [phone] OSCAR MACEDO PATIENT FEDERAL PROVIDER SELF 2002 22 4 AN ORGANIZAT ION (PPO) [place]-F PRESCRIPT BCBS May 17, [id number] [phone] FR ZEINAOSCAR PATIENT EP BCBS ION FEP 2010 0 [id number] 331 AN PLAN MEDICARE MEDICARE PART Jan 15, PART A [id number] OSCAR LITTLE PATIENT (WNR) (M) A 2008 HU83 2 AN Selected Encounter This section includes the information on record at [facility] for the Encounter. Date/Time Encounter Type Encounter Description Reason Provider Source Aug 02, 2020 12:00 Outpatient Encounter EVENT (HISTORICAL) AM [...] Appointment Type Appointment Facili ty Name Aug 13, 2020 10:00 AM AMBULATORY - [...] AM [place] [facility] Nov 04, 2020 01:00 PM [place] [facility] Nov 12, 2020 08:30 AM [place]ORY [place] NONE [place] [facility] Nov 19, 2020 02:00 PM [place] [facility] Dec 05, 2020 08:00 AM AM[place]UL[place]ORY [place] NONE [place] [facility] Dec 11, 2020 12:00 PM [place] [facility] Dec 23, 2020 11:00 AM [place] [facility] Dec 30, 2020 10:15 AM [place]ORY - NONE [place] [facility] Jan 28, 2021 10:00 AM AMBULATORY - NONE [place] [facility] Active, Pending, and Scheduled Orders This section includes a listing of several types of active, pending, and scheduled orders, including clinic medications orders, diagnostic test orders, procedure orders and consult orders; where the start date of the order is 45 days before the date of the Encounter or 45 days after the date of the Encounter. The data comes from all [place] treatment facilities. Test Date/Time Test Type Test Details Facility Name Jul 29, 2020 12:57 PM Consult Order COMMUNITY CARE-COLONOSCOPY [place] [facility] SCREENING Cons Vp Communications's Choice Immunizations: All administered on the encounter date This section contains immunizations associated to the Encounter. Immunization Series Date Issued Reaction Comments COVID-19 (MODERNA), MRNA, LNP-S, PF, 100 2 Aug 02, 2020 MCG/0.5 ML DOSE Social History: Smoking Status (Most current) and [...] AM VA-TOBACCO FORMER [place] [facility] Tobacco Use History This section includes a history of the smoking, or tobacco-related health factors, that were collected on or before the date of the Encounter. The data comes from the [place] facility where the Encounter took place. Date/Time Smoking Status/Tobacco Use Comment [facility] Apr 09, 2020 11:00 AM VA-TOBACCO QUIT 15 YRS OR MORE [place] [facility] Jan 14, 2018 03:08 PM VA-TOBACCO FOR[place] [facility] Jan 14, 2018 03:08 PM VA-TOBACCO QUIT 15 YRS OR MORE [place] [facility] Mar 16, 2017 09:08 AM QUIT TOBACCO USE > 7 YEARS AGO [place] [facility] quit 1983Mar 04, 2016 10:28 AM QUIT TOBACCO USE > 7 YEARS AGO [place] [facility] Quit 1983Mar 10, 2005 10:47 AM [place] SMOKING [place] [facility] 1983Mar 31, 2004 09:26 AM H[place] OF SMOKING [place] [facility] Mar 31, 2004 09:26 AM QUIT TOBACCO USE > 7 YEARS AGO [place] [facility] Aug 22, 2001 01:30 PM HISTORY OF SMOKING [place] [facility] Advance Directives: All [...] Feb 23, 2014 ADVANCE DIRECTIVE EYAL MONTILLA [facility]
--- OUTSIDE RECORDS SUMMARY | 2020-12-05 21:42 | XMS_ITS ---
:1945 Author Organization Department [facility] Address [address] [place] [id number] Care Team Providers Name Role Phone MANNY [...] Number Dhillon ANTHEM PREFERRED BASIC May 17 [id number] [phone] OSCAR LITTLE P ATIENT [place] PROVIDER SELF 2002 [id number] AN (FEDERAL) ORGANIZAT ION (PPO) [place] PREFERRED BASIC May 17 [id number] [phone] OSCAR MACEDO PATIENT FEDERAL PROVIDER SELF 2002 22 4 AN ORGANIZAT ION (PPO) [place]-F PRESCRIPT BCBS May 17 [id number] [phone] FR ZEINAOSCAR PATIENT EP BCBS ION FEP 2010 0 [id number] AN PLAN MEDICARE MEDICARE PART Jan 15, PART A [id number] SIDNEY OSCAR PATIENT (WNR) (M) A 2008 [id number] 2 AN Selected Encounter This section includes the information on record at [place] for the Encounter. Date/Time Encounter Type Encounter Reason Provider Source Description Aug 13, 2020 OFFICE O/P EST CARDIOLOGY ICD-10-CM G45.3 GIANNA FRITZ 10:00 AM MOD 30-39 MIN Amaurosis fugax with Provider Comments: Transient monocular blindness ([facility] [id number]) IHE Encounter Template Text not used by [facility] Assessments - Encounter Diagnoses This section includes the primary and secondary diagnoses documented forthe Encounter. Date/Time Primary/Secondary Diagnosis Name Provider Source Diagnosis Aug 13, 2020 PRIMARY Amaurosis fugax GIANNA FRITZ 12:48 PM [facility] Plan of Treatment: Future Appointments (+ 6 [...] 20 appointments. The data comes from all [facility]. Appointment Date/Time Appointment Type Appointment Facili ty Name Aug 21, 2020 10:00 AM [place] [facility] Aug 21, 2020 11:00 AM [place] [facility] October 02, 2020 10:15 AM [place] [facility] October 09, 2020 01:00 PM [place] [facility] Oct 28, 2020 11:00 AM [place]ORY [place] [facility] Nov 04, 2020 01:00 PM [place] [facility] Nov 12, 2020 08:30 AM [place]UL[place]ORY [place] [facility] Nov 19, 2020 02:00 PM [place] [facility] Dec 05, 2020 08:00 AM AMBUL[place]ORY [place] [facility] Dec 11, 2020 12:00 PM [place] [facility] Dec 23, 2020 11:00 AM [place] [facility] Dec 30, 2020 10:15 AM AM[place]UL[place]ORY [place] [facility] Jan 28, 2021 10:00 AM AMBULATORY [place]ONE [place] [facility] Active, Pending, and Scheduled Orders This section [...] PM Consult Order COMMUNITY CARE-COLONOSCOPY ADITYA ARREOLA [facility] SCREENING Cons Finisher Polisher's Choice Social History: Smoking Status (Most current) [...] 11:00 AM VA-TOBACCO FORMER USER Yue [place] [facility] Tobacco Use History This section includes a history of the smoking, or tobacco-related health factors, that were collected on or before the date of the Encounter. The data comes from the [place] facility where the Encounter took place. Date/Time Smoking Status/Tobacco Use Comment [facility] Apr 09, 2020 11:00 AM VA-TOBACCO QUIT 15 YRS OR MORE [place] [facility] Jan 14, 2018 03:08 PM VA-TOBACCO FORMER USER [place] [facility] Jan 14, 2018 03:08 PM VA-TOBACCO QUIT 15 YRS OR MORE ADITYA ARREOLA T [facility] Mar 16, 2017 09:08 AM QUIT TOBACCO USE > 7 YEARS AGO AIDTYA ARREOLA T [facility] quit 1983Mar 04, 2016 10:28 AM QUIT TOBACCO USE > [facility] Quit 1983Mar 10, 2005 10:47 AM H[place] OF SMOKING [place] [facility] 1983Mar 31, 2004 09:26 AM H[place]ORY OF SMOKING [place] [facility] Mar 31, 2004 09:26 AM QUIT TOBACCO USE > 7 YEARS AGO [place] [facility] Aug 22, 2001 01:30 PM HISTORY OF SMOKING [place] [facility] Advance Directives: All historical and current Section [...] Feb 23, 2014 ADVANCE DIRECTIVE E[place]AL [place] [facility] Encounter Notes: All associated encounter notes This section contains the clinical notes associated to the Encounter. Date/Time Encounter Note(s) Provider Source Aug 13, 2020 12:18 PM CARDIOLOGY NOTE: GIANNA FRITZ [place] LOCAL TITLE: Cardiology Note [facility] STANDARD TITLE: CARDIOLOGY NOTE DATE OF NOTE: AUG 13, 2020@12:18 ENTRY DATE: AUG 13, 2020@12:18:30 AUTHOR: GIANNA FRITZ COSIGNER: URGENCY: STATUS: COMPLETED Video Connect Visit The patient consented to video connect visit ? Y es The patient's address/physical location was conf irmed ? Yes The patient's phone number was confirmed as the one listed in CPRS ? Yes The patient's preference for emergency services was confirmed at the start of this visit (E911 vs. local 911) Yes The patient's environment was surveyed ,the alex ent was indentified and other individuals in the room were identified. The e 911 nubmer is [phone] Interval History: This was a focused visit in regards to pursuing a ROBIN for further diagnostic work up of the TIA. Mr. Little was seen by Edith bhatia from cardiology for a full visit 3 weeks ago. In [facility], Mr. Little has transient visual field loss in one eye. He was seen and treated at [facility] where CT as well as MRI of the head did not show acute pathology. MRA of the neck sh owed no significant carotid stenosis. The symptoms abated on their own. He h as been treated with blood pressure control agents, 21 days of clopidogrel and then ongoing ASA 81mg po qd and his statin medication mckeon s been continued. He's had an ambulatory arrhythmia monitor [facility] of the [facility] which reportedly did n ot show occult afib. He's had no recurrent neurol ogic symptoms since the initial event back in early June. He is feeling well and reports no conc erns or complaints. Meds: Active Outpatient Medications (excluding Supplie s): Active Outpatient Medications Status 1) BUDESONIDE 80/FORMOTER 4.5MCG 120D INH INHA LE 2 PUFFS ACTIVE BY MOUTH TWICE A DAY FOR BREATHING/RINSE MOUTH WITH WATER,SWISH AROUND AND SPIT OUT AFTER USI NG INHALER 2) KETOCONAZOLE 2% SHAMPOO SHAMPOO SMALL AMOUN T ACTIVE TOPICALLY ON MONDAYS AND THURSDAYS 3) LISINOPRIL 5MG TAB TAKE ONE TABLET BY MOUTH EVERY DAY ACTIVE TO CONTROL BLOOD PRESSURE 4) POLYETHYLENE GLYCOL 3350 ORAL PWDR TAKE 1 C APFUL (17 ACTIVE GRAMS) BY MOUTH EVERY DAY , DISSOLVED IN 4 TO 8 OZ. CLEAR LIQUID / FOR CONSTIPATION 5) ROSUVASTATIN CA 40MG TAB TAKE ONE-HALF TABL ET BY ACTIVE MOUTH EVERY DAY TO LOWER CHOLESTEROL 6) SERTRALINE HCL 50MG TAB TAKE THREE TABLETS BY MOUTH ACTIVE EVERY DAY FOR DEPRESSION OR ANXIETY Active Non-VA Medications Status 1) Non-VA ASPIRIN 325MG TAB 81MG BY MOUTH EVER Y DAY ACTIVE 7 Total Medications Labs: Labs (14 Days) No data available BNP(P) - NONE FOUND CHOL: 194 (05/02/20 13:53) HDL: 39 (05/02/20 13:53) LDL: 122 (05/02/20 13:53) TRI (05/02/20 13:53) Imaging Impression (14 Days) No data available Assessment/Plan: a. TIA, amaurosis fugax. 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 A ROBIN was recommended by molly holland neurologist. This visit was centered on d ecision making on whether or not to pursue a ROBIN for diagnostic purposes. We reviewed the role of ROBIN in patients with cryptogenic cerebrovascular events. We r eviewed the yield of ROBIN in the setting. We reviewed the bedrocks of secondary prevention of CVA incl uding statin, Aspirin, blood pressure control and lifestyle (exercise,diet). After reviewing the option of ROBIN for further investigatio n of CVA the patient decided NOT to pursue a ROBIN. He understood the purpose of th e ROBIN. He felt the relatively low likely of finding something that would change his current treatmen t plan does not justify the procedure. Should he change his mind on ROBIN we w ill be happy to perform that procedure. I told him that should a recurrent ne urologic event occur while on medical therapy then he should strongly reconsid er his decision pursuring the ROBIN. Mr. Little has established care with Durga Dan APRN here at [facility] who will continue to follow and treat him for secondary p revention/risk reduction. LDL was 122 at last check. LDL goal is less than 70mg/dl. Repeat lipids are planned for 08/18/20, if LDL remains above goal on that lipid check recommend increasing Rosuvastatin to 40mg po qd. /chris/ GIANNA FRITZ Staff Physician, Cardiology Signed: 08/13/2020 12:48 Receipt Acknowledged By: * AWAITING SIGNATURE * TOSHIA [place] * AWAITING SIGNATURE * MARTHA DAN
--- OUTSIDE RECORDS SUMMARY | 2020-12-05 21:42 | XMS_ITS ---
:1945 Author Organization Department [facility] Address [address] [place] [id number] Care Team Providers Name Role Phone MANNY [...] Number Dhillon ANTHEM PREFERRED BASIC May 17 [id number] [phone] OSCAR LITTLE P ATIENT [place] PROVIDER SELF 2002 22 [id number] AN (FEDERAL) ORGANIZAT ION (PPO) [place] PREFERRED BASIC May 17 [id number] [phone] OSCAR MACEDO PATIENT FEDERAL PROVIDER SELF 2002 22 4 AN ORGANIZAT ION (PPO) [place]-F PRESCRIPT BCBS May 17 [id number] [phone] FR ZEINAOSCAR PATIENT EP BCBS ION FEP 2010 0 [id number] [phone] AN PLAN MEDICARE MEDICARE PART Jan 15, PART A [id number] SIDNEY OSCAR PATIENT (WNR) (M) A 2008 [id number] 2 AN Selected Encounter This section includes the information on [place] at [place] for the Encounter. Date/Time Encounter Type Encounter Reason Provider Source Description Aug 21, 2020 OFFICE O/P EST [facility] ICD-10-CM F31.9 DARRYL ARCE 11:00 AM MOD 30-39 MIN IND Bipolar disorder, E L unspecified with Provider Comments: Bipolar disorder, unspecified IHE Encounter Template Text not used by [place] Assessments - Encounter Diagnoses This section includes the primary and secondary diagnoses documented forthe Encounter. Date/Time Primary/Secondary Diagnosis Name Provider Source Diagnosis Aug 21, 2020 PRIMARY Bipolar disorder, DARRYL ARCE JAKUB 11:52 AM [place] [facility] Aug 21, 2020 SECONDARY Alcohol abuse, DARRYL ARCE 11:52 AM uncomplicated [place] [facility] Plan of Treatment: Future Appointments (+ 6 [...] appointments. The data comes from all [facility]. Appointment Date/Time Appointment Type Appointment Facili ty Name October 02, 2020 10:15 AM [place] [facility] October 09, 2020 01:00 PM [place] [facility] Oct 28, 2020 11:00 AM [place] [facility] Nov 04, 2020 01:00 PM [place] [facility] Nov 12, 2020 08:30 AM [place] [facility] Nov 19, 2020 02:00 PM [place] [facility] Dec 05, 2020 08:00 AM [place] [facility] Dec 11, 2020 12:00 PM [place] [facility] Dec 23, 2020 11:00 AM [place] [facility] Dec 30, 2020 10:15 AM [place] [facility] Jan 28, 2021 10:00 AM [place] [facility] Active, Pending, and Scheduled Orders This [...] PM Consult Order COMMUNITY CARE-COLONOSCOPY ADITYA ARREOLA [facility] SCREENING Cons Ring Striker's Choice Social History: Smoking Status (Most current) [...] 11:00 AM VA-TOBACCO FORMER USER Yue [facility] Tobacco Use History This section includes a history of the smoking, or tobacco-related health factors, that were collected on or before the date of the Encounter. The data comes from the [place] facility where the Encounter took place. Date/Time Smoking Status/Tobacco Use Comment [facility] Apr 09, 2020 11:00 AM VA-TOBACCO QUIT 15 YRS OR MORE [place] [facility] Jan 14, 2018 03:08 PM VA-TOBACCO FORMER USER [place] [facility] T [facility] Jan 14, 2018 03:08 PM VA-TOBACCO QUIT 15 YRS OR MORE ADITYA ARREOLA T [facility] Mar 16, 2017 09:08 AM QUIT TOBACCO USE > 7 YEARS AGO ADITYA ARREOLA T [facility] quit 1983Mar 04, 2016 10:28 AM QU[facility] Q[facility] 1983Mar 10, 2005 10:47 AM H[place] OF SMOKING [place] [facility] 1983Mar 31, 2004 09:26 AM HISTORY OF SMOKING [place] [facility] Mar 31, 2004 09:26 AM QUIT TOBACCO USE > 7 YEARS AGO [place] [facility] Aug 22, 2001 01:30 PM HISTORY OF SMOKING [place] [facility] Advance Directives: All historical and current Section Date Range: From patient's date of to the date document was created. This section includes ALL of a patient's completed or amended [place] Advance and Rescinded Directives. The entries below indicate that a directive exists for the patient, but an actual copy is not included with this document. The data comes from all [place] facilities. Date Advance Directives Provider Source Feb 23, 2014 ADVANCE DIRECTIVE EYAL MONTILLA T [facility] Encounter Notes: All associated encounter notes This section contains the clinical notes associated to the Encounter. Date/Time Encounter Note(s) Provider Source Aug 21, 2020 11:06 AM MENTAL HEALTH OUTPATIENT NOTE: NATASHA ARCET LOCAL TITLE: [facility] Note [facility] STANDARD TITLE: MENTAL HEALTH OUTPATIENT NOTE DATE OF NOTE: AUG 21, 2020@11:06 ENTRY DATE: AUG 21, 2020@11:06:47 AUTHOR: LUIS CARLOS ARCE EXP COSIGNER: URGENCY: STATUS: COMPLETED [facility] PSYCHIATRIST NOTE [facility]VC VISIT CONFIRMED HE IS AT HOME ADDRESS FOLLOW UP VISIT FOR [facility] SEEN BY Jhoan Hoskins TIME SPENT WITH PATIENT (minutes): 27 MIN PCP: MANNY ARTEAGA 6 E *WH* CHIEF COMPLAINT: right now I'm in a good mood but this afternoon I won't be BAD HISTORY of PRESENT ILLNESS: - notes mood lability - may feel good for half a day, and then feel de pressed the other half - lots of mood swings - can't identify when today's good mood started, altho notes he got some good news which brightened his mood - mood state doesn't last a full day but is dist ressing - notes he woke at 3:20 am in sleep paralysis - not using CPAP reliably - having reflux frequently, and trouble swallowi ng - appetite is normal but he is trying to lose we ight - feels the longer days make him feel more depressed, more comfortable at night - thinks of longer days as danger - more thing s can happen - looks forward to seeing family since they are vaccinated - denies SI or desire to RELEVANT CURRENT STRESSORS: UPDATES SINCE LAST V ISIT ONLY See previous notes for more complete history SIGNIFICANT PAST PSYCHIATRIC HISTORY: See previous notes for history Good response to lamictal Also tried depakote MEDICAL HISTORY: Benign essential hypertension (SCT [id number] t monocular blindness (SCT 32241417) Gastroesophageal reflux disease (SCT 235Hallucin ations (SCT 0819224) Umbilical hernia (SCT 996957 007) Lichen simplex chronicus (SCT 09485372) Tinea pedis (SCT 1649701) Obstruct denzel sleep apnea of adult (SCT 1886425570521) Mood disorder (SCT 30841772) Chronic kidney disease stage 3 (SCT 611454026) Keratoderma (SCT 137691481) Allergic conjunctivitis (SCT 418237658) 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) Prostate cancer (SCT 924334999) Asthma (SCT 034657285) Low back pain (SCT 041467088) History of polyp of colon (SCT [id number] (SCT 179264740) Gastroesophageal reflux disease (SCT 235Anxiety disorder (SCT 869896201) Bipolar disorder (SCT 21454245) Paranoia ([facility] [id number]) Hyperlipidemia ([facility] 13338408) ALLERGIES: Patient has answered NKA MEDICATIONS: Active [...] EVER Y DAY ACTIVE 7 Total Medications MEDICATION RECONCILIATION: REVIEWED MEDS WITH VITALS: 258 lb [117.3 kg] (07/22/2020 09:23) DATE/TIME TEMP PULSE RESP B P PAIN WEIGHT 07/22/20 @ 1205 76 16 1 07/22/20 @ 0923 258 07/04/20 @ 1351 97.2 79 18 1 0 262.4 MENTAL STATUS EXAM: *Appearance: intact grooming and hygiene, dressed appropriately, good nutrition, appears stated age *Motor: no restlessness or agitation -Manner: cooperative and pleasant *Speech: spontaneous, good amount, normal rate, volume and intonation, not pressured *Language: no word-finding problems, no neologi sms or unusual word usage -Affect: full and reactive, mood-congruent, karel ght *Mood: good, but labile *Thought process: organized and goal-directed, normal rate *Associations: intact and linear *Thought content: no delusions, no bizarre cont ent, denies SI *Perception: intact, with no hallucinations *Insight/Judgment: good/good *Memory: good historian, able to provide detail s of recent and remote events *Attention/concentration: intact LABS: Labs (14 Days) No data available OVERALL IMPRESSION/ASSESSMENT: 75 yo [place] with h/o BAD and AUD in remission reports feeling less depressed overall, altho mood is very labile, which unsett les him. He would like to be more stable. Level of acuity: Routine Safety Assessment: low risk Diagnoses (formerly [place] I, II, III): BAD, AUD i n rem. Psychosocial factors (formerly [place] IV): isoalti on r/t Covid Functional Status (formerly [place] V, severity/dis ability): fair TREATMENT PLAN: Medications: Add low dose lamictal 25 mg and inc rease to 50 mg after 2 weeks. Hold dose there x 1 month. Risks of SJ syndrome were reviewed. Psychosocial interventions: None Integrated Care interventions: Follow-up: Return to [facility] 10/09 at 2 pm /es/ LUIS CARLOS ARCE Staff Physician Signed: 08/21/2020 11:52
--- OUTSIDE RECORDS SUMMARY | 2020-12-05 21:42 | XMS_ITS | Encounter Summary ---
:1945 Author Organization [facility] of [facility] rs Address [address] [place] [id number] Care Team Providers Name Role Phone CHANDLER, [...] Number Dhillon ANTHEM PREFERRED BASIC May 17 [id number] [phone] OSCAR LITTLE P ATIENT [place] PROVIDER SELF [phone] AN (FEDERAL) ORGANIZAT ION (PPO) [place] PREFERRED BASIC May 17 [id number] [phone] OSCAR MACEDO PATIENT FEDERAL PROVIDER SELF 2002 22 4 AN ORGANIZAT ION (PPO) [place]-F PRESCRIPT BCBS May 17, [id number] [phone] OSCAR PASTRANA PATIENT EP BCBS ION FEP [phone] [id number] AN PLAN MEDICARE MEDICARE PART Jan 15 PART A [id number] [phone] OSCAR LITTLE PATIENT (WNR) (M) A 2008 [id number] 2 AN Selected Encounter This section includes the information on record at [place] for the Encounter. Date/Time Encounter Type Encounter Reason Provider Source Description Aug 21, 2020 OFFICE NEUROLOGY ICD-10-CM G45.3 WILLCOTY WHITLEYI 10:00 AM CONSULTATION Amaurosis fugax SONY Naidu with Provider Comments: Amaurosis Fugax IHE Encounter Template Text not used by [facility] Assessments - Encounter Diagnoses This section includes the primary and secondary diagnoses documented forthe Encounter. Date/Time Primary/Secondary Diagnosis Name Provider Source Diagnosis Aug 21, 2020 PRIMARY Amaurosis fugax CARLOS SOLIS [facility] 04:34 PM JAKI Naidu [facility] Plan of Treatment: Future Appointments (+ 6 months) and Future Tests (+/- 45 days) The Plan of Treatment section includes future care activities for the patient from all [place] treatment facilities. This section includes future appointments and future orders which are active, pending or scheduled.Future Appointments This section includes appointments that were scheduled to occur 6 months from the date of the Encounter, up to a maximum of 20 appointments. The data comes from all [facility]. Appointment Date/Time Appointment Type Appointment Facili ty Name October 02, 2020 10:15 AM AM[place] [facility] October 09, 2020 01:00 PM [place] [facility] Oct 28, 2020 11:00 AM [place] [facility] Nov 04, 2020 01:00 PM AM[place] [facility] Nov 12, 2020 08:30 AM [place] [facility] Nov 19, 2020 02:00 PM [place] [facility] Dec 05, 2020 08:00 AM [place]ORY [place] [facility] Dec 11, 2020 12:00 PM AM[place]UL[place]ORY - [place]AT[place] [facility] Dec 23, 2020 11:00 AM [place] [facility] Dec 30, 2020 10:15 AM AMBULATORY - NONE [place] [facility] Jan 28, 2021 10:00 AM AMBULATORY - NONE [place] [facility] Active, Pending, and Scheduled Orders This section includes a listing of several types of active, pending, and scheduled orders, including clinic medications orders, diagnostic test orders, procedure orders and consult orders; where the start date of the order is 45 days before the date of the Encounter or 45 days after the date of the Encounter. The data comes from all [place] treatment facilities. Test Date/Time Test Type Test Details Facility Name Jul 29, 2020 12:57 PM Consult Order COMMUNITY CARE-COLONOSCOPY [place] [facility] SCREENING Cons Rn Shift Mgr's Choice Social History: Smoking Status (Most current) and Tobacco Use (All prior to encounter date) This section includes the most current, and the historical, smoking and tobacco-related health factors from the [place] facility where the Encounter took place.Current Smoking Status This section includes the most current smoking, or tobacco-related health factor, from the [place] facility where the Encounter took place. Date/Time Current Smoking Status Comment Facility Apr 09, 2020 11:00 AM VA-TOBACCO FORMER USER [place] [facility] Tobacco Use History This section includes a history of the smoking, or tobacco-related health factors, that were collected on or before the date of the Encounter. The data comes from the [place] facility where the Encounter took place. Date/Time Smoking Status/Tobacco Use Comment [facility] Apr 09, 2020 11:00 AM VA-TOBACCO QUIT 15 YRS OR MORE [place] [facility] Jan 14, 2018 03:08 PM VA-TOBACCO FORMER USER [place] [facility] Jan 14, 2018 03:08 PM VA-TOBACCO QUIT 15 YRS OR MORE [place] [facility] Mar 16, 2017 09:08 AM QUIT TOBACCO USE > 7 YEARS AGO [place] [facility] quit 1983Mar 04, 2016 10:28 AM QUIT TOBACCO USE > 7 YEARS AGO [place] [facility] Quit 1983Mar 10, 2005 10:47 AM H[place] OF [place]MOKING [place] [facility] 1983Mar 31, 2004 09:26 AM H[place] SMOKING [place] [facility] Mar 31, 2004 09:26 AM QUIT TOBACCO USE > 7 YEARS AGO [place] [facility] Aug 22, 2001 01:30 PM HISTORY OF SMOKING [place] [facility] Advance Directives: All historical and current Section Date Range: From patient's date of to the date document was created. This section includes ALL of a patient's completed or amended [place] Advance and Rescinded Directives. The entries below indicate that a directive exists for the patient, but an actual copy is not included with this document. The data comes from all [place] facilities. Date Advance Directives Provider Source Feb 23, 2014 ADVANCE DIRECTIVE EYAL MONTILLA ROWE [facility] Encounter Notes: All associated encounter notes This section contains the clinical notes associated to the Encounter. Date/Time Encounter Note(s) Provider Source Aug 21, 2020 10:07 AM NEUROLOGY E & M CONSULT: OLI SOLIS [facility] LOCAL TITLE: CONSULT: Neurology Initial Assessm ent M [facility] STANDARD TITLE: NEUROLOGY E & M CONSULT DATE OF NOTE: AUG 21, 2020@10:07 ENTRY DATE: AUG 21, 2020@10:07:07 AUTHOR: REGINA SOLIS EXP COSIGNER: URGENCY: STATUS: COMPLETED Consult - Neurology Initial Assessment [facility] appointment: Provider confirmed that [facility] is currently loc ated at the following address listed in their CPRS chart. [address] [place] [id number] e-911: Call [phone] to speak with an agent who can put you in touch with a profile shaper operator at the Patient's location. Y ou must have the physical location (address) where the Patient is currentl y located. Verbal informed consent has been obtained. ASSESSMENT/PLAN: Amaurosis fugax. Agree with adjustments in terrie men. SBP close to 120 if tolerated. Cont High dose high potency statin wi th ldl at least less than 70. Has done well on 325 mg of aspirin in past so re suming. Discussed importance of treatment of JAY JAY and h ow this could secondarily decrease risk. The most pertinent thing here would be the possible association with paroxysmal A fib. However this and recent l onger term telemetries all negative. CC: vision change HPI: Event occurred on 06/26. On aspirin at the t [facility]. ED visit for sudden vision loss left eye ~15 min Was sitting watching TV when he noticed sudden loss of vision L eye. Symptoms lasted 15 min and then completely resol demetrio. When symptoms were improving it seemed like a shade was being pulle d back open, improving his vision. +Mild headache over past few days bu t otherwise (-): fever, eye pain, n/v, chest pain, SOB, dizziness, unilatera l weakness or numbness Imaging/Impression, r/o acute CVA: -Brain MRI: Unremarkable MRI of brain -Brain MRA: WNL anatomic variation (of [place] of [place]) -MRA neck: No evidence of dissection, occlusion or significant stenosis -Chest XR: no acute pulm findings -Head CT: No acute intracranial process -Bedside US done: no evidence of retinal detachm ent EKG: HR 78, sinus, RBBB, no acute ST ischemic fi ndings (qTC 487) Labs reviewed and unremarkable. Troponin negativ e. CRP 0.45H. ESR 27 (nl) Med changes of clopidogrel x 2 weeks, inc of sta tin and PMHX: Active problems - Computerized Problem List is [...] 21. Bipolar disorder 22. Paranoia 23. Hyperlipidemia Active Outpatient Medications (excluding Supplie s): Active [...] EVER Y DAY ACTIVE 7 Total Medications SocHx: no etoh FamHx: neg for early stroke ROS: 12 systems were reviewed. When pertinent, included in HPI. Otherwise negative and/or not pertinent. PHYSICAL EXAM VS: No data available Gen: NAD Eyes: No papilledema. Mental Status/MMSE: Alert, oriented and fluent. CN: EOMI, facial strength normal, intact heari ng. No dysarthria. Motor: No drift. 50 min visit and charting /es/ REGINA SOLIS Chief of Neurology, Signed: 08/21/2020 16:34
--- OUTSIDE RECORDS SUMMARY | 2020-12-05 21:43 | XMS_ITS ---
:1945 Author Organization Department [facility] Address [address] [place] [id number] Care Team Providers Name Role Phone MANNY [...] Number Dhillon ANTHEM PREFERRED BASIC May 17 [id number] [phone] OSCAR LITTLE P ATIENT BCBS OF [place] PROVIDER SELF 2002 [id number] AN (FEDERAL) ORGANIZAT ION (PPO) [place]BS [place] PREFERRED BASIC May 17 [id number] [phone] OSCAR MACEDO PATIENT FEDERAL PROVIDER SELF 2002 22 4 AN ORGANIZAT ION (PPO) [place]-F PRESCRIPT BCBS May 17 [id number] [phone] OSCAR PASTRANA PATIENT EP BCBS ION FEP 2010 0 [id number] AN PLAN MEDICARE MEDICARE PART Jan 15, PART A [id number] OSCAR LITTLE PATIENT (WNR) (M) A 2008 [id number] 2 AN Selected Encounter This section includes the information on record at OR for the Encounter. Date/Time Encounter Type Encounter Reason Provider Source Description Jul 29, 2020 OFFICE O/P EST GERIPACT ICD-10-CM G45.3 KAR GRANADOS 11:00 AM MOD 30-39 MIN Amaurosis fugax with Provider Comments: Transient monocular blindness ([facility] [id number]) IHE Encounter Template Text not used by VA Assessments - Encounter Diagnoses This section includes the primary and secondary diagnoses documented forthe Encounter. Date/Time Primary/Secondary Diagnosis Name Provider Source Diagnosis Jul 29, 2020 PRIMARY Amaurosis fugax [place] 12:57 PM A [facility] Jul 29, 2020 SECONDARY Bipolar disorder, BLACK,[place] 12:57 PM unspecified A [facility] Jul 29, 2020 SECONDARY Essential (primary) BLACKTOSHIA R IVER 12:57 PM hypertension A [facility] Jul 29, 2020 SECONDARY Gastro-esophageal [place] 12:57 PM reflux disease A [facility] without esophagitis Jul 29, 2020 SECONDARY Unspecified asthma, [place]HAI [place] IVER 12:57 PM uncomplicated A [facility] Jul 29, 2020 SECONDARY Vitamin B12 [place] 12:57 PM deficiency anemia, [facility] unspecified Plan of Treatment: Future Appointments (+ 6 months) and Future Tests (+/- 45 days) The Plan of Treatment section includes future care activities for the patient from all OR treatment facilities. This section includes future appointments and future orders which are active, pending or scheduled.Future Appointments This section includes appointments that were scheduled to occur 6 months from the date of the Encounter, up to a maximum of 20 appointments. [facility] Appointment Date/Time Appointment Type Appointment Facili ty Name Jul 31, 2020 11:00 AM [facility] [place] [facility] Aug 13, 2020 10:00 AM [place] [facility] Aug 21, 2020 10:00 AM [place] [facility] Aug 21, 2020 11:00 AM [place] [facility] October 02, 2020 10:15 AM AM[facility] [facility] October 09, 2020 01:00 PM [place] [facility] Oct 28, 2020 11:00 AM [place]ORY [place] [facility] Nov 04, 2020 01:00 PM AM[facility] [facility] Nov 12, 2020 08:30 AM AM[place]ORY [place] NONE [place] [facility] Nov 19, 2020 02:00 PM AMBULATORY - [place]IC[place] [facility] Dec 05, 2020 08:00 AM AM[place]ORY [place] NONE [place] [facility] Dec 11, 2020 12:00 PM AM[facility] [facility] Dec 23, 2020 11:00 AM [place] [facility] Dec 30, 2020 10:15 AM AM[place]UL[place]ORY - NONE [place] [facility] Jan 28, 2021 10:00 AM AM[place]ORY - [place] [facility] Active, Pending, and Scheduled Orders This section includes a listing of several types of active, pending, and scheduled orders, including clinic medications orders, diagnostic test orders, procedure orders and consult orders; where the start date of the order is 45 days before the date of the Encounter or 45 days after the date of the Encounter. The data comes from all [place] treatment facilities. Test Date/Time Test Type Test Details Facility Name Jul 29, 2020 12:57 PM Consult Order COMMUNITY CARE-COLONOSCOPY [place] [facility] SCREENING Cons English Drawer's Choice Social History: Smoking Status (Most current) and Tobacco Use (All prior to encounter date) This section includes the most current, and the historical, smoking and tobacco-related health factors from the OR facility where the Encounter took place.Current Smoking Status This section includes the most current smoking, or tobacco-related health factor, from the OR facility where the Encounter took place. Date/Time Current Smoking Status Comment Facility Apr 09, 2020 11:00 AM VA-TOBACCO FORMER USER Yue CELIS [facility] Tobacco Use History This section includes a history of the smoking, or tobacco-related health factors, that were collected on or before the date of the Encounter. The data comes from the OR facility where the Encounter took place. Date/Time Smoking Status/Tobacco Use Comment [facility] Apr 09, 2020 11:00 AM VA-TOBACCO QUIT 15 YRS OR MORE [facility] Jan 14, 2018 03:08 PM VA-TOBACCO FORMER USER [place] [facility] Jan 14, 2018 03:08 PM VA-TOBACCO QUIT 15 YRS OR MORE ADITYA ARREOLA [facility] Mar 16, 2017 09:08 AM QUIT [...] PM HISTORY OF SMOKING ADITYA POLO [facility] Advance Directives: All historical and current Section Date Range: From patient's date of to the date document was created. This section includes ALL of a patient's completed or amended VA Advance and Rescinded Directives. The entries below indicate that a directive exists for the patient, but an actual copy is not included with this document. The data comes from all OR facilities. Date Advance Directives Provider Source Feb 23, 2014 ADVANCE DIRECTIVE EYAL MONTILLA ADITYA ARREOLA [facility] Encounter Notes: All associated encounter notes This section contains the clinical notes associated to the Encounter. Date/Time Encounter Note(s) Provider Source Aug 06, 2020 02:46 PM PRIMARY CARE ADMINISTRATIVE NOTE: NATASHA LOCKHART [facility] LOCAL TITLE: Administrative Note/Primary Care B [facility] STANDARD TITLE: PRIMARY CARE ADMINISTRATIVE NOTE DATE OF NOTE: AUG 06, 2020@14:46 ENTRY DATE: AUG 06, 2020@14:47:10 AUTHOR: SHIRA LOCKHART COSIGNER: RONDA VALADEZ URGENCY: STATUS: COMPLETED VVC appointment made with me today in error [place] currently being worked up for wh at sounds like a TIA- has follow up in the next two weeks with cardiology and neurology - no acute complaints today Link for VVC likely made in error /chris/ SHIRA LOCKHART JR, MD, PhD Signed: 08/06/2020 14:47 /es/ RONDA VALADEZ MD Staff MD Cosigned: 08/06/2020 14:54 Receipt Acknowledged By: * AWAITING SIGNATURE * [place] Jul 29, 2020 11:00 AM TELEHEALTH NOTE: [place] [facility] LOCAL TITLE: VIDEO-CONNECT NOTE [facility] STANDARD TITLE: TELEHEALTH NOTE DATE OF NOTE: JUL 29, 2020@11:00 ENTRY DATE: JUL 29, 2020@08:18:50 AUTHOR: [place]IA [place] COSIGNER: KAR GRANADOS URGENCY: STATUS: COMPLETED VIDEO-CONNECT NOTE Has ADDENDA Due to the COVID-19 outbreak , aggressive social distancing, particularly for the elderly and those with chronic medical c onditions, has been instituted at this OR. The [facility] medical staff have been instructe d to postpone all non-urgent face to face office visits and procedures. [place] seen the OR Video Connect: [X] Provider confirmed that [place] is currently located at the following address listed in their [facility] chart. [address] [place] [id number] e-911: Call [phone] to speak with an agent who can put you in touch with a oxidation operator at the Patient's location. Y ou must have the physical location (address) where the Patient is currentl y located. Verbal informed consent has been obtained. The p atient has been provided with a full explanation of the risks and benefit s of Tele Health. SUBJECTIVE CC: Having second thoughts about ROBIN HPI: 75 year old MALE, pmh significant f or bipolar disorder, anxiety, JAY JAY, CKD stage 3, asthma, prostate ca, obesity, presents for f/u episode of amorosus fugax on 06/26/20. #S/p episode of amarosus fugax Following with cardiology, opthamology and neuro logy (scheduled 08/21 vvc) No repeat episodes- see previous PC note, workup so far negative Concerned about this ROBIN, logistics of getting t here- wants to talk to trim mechanic which has been scheduled for 08/13- concerned about the driving #HTN On lisinopril 5mg BP at home 115/66, HR 69 Denies chest pain, pressure, palpitations, dizzi ness, lightheadedness sometimes it feels like my heart stops for a se cond, but then I take a deep breath and stop and it feels better - now s/p 2 weeks Ziopatch: 14 day ambulatory monitor: no afib, sinus rhythm. [place] ered events corresponded to sinus rhythm per cards note #Poor balance Saw PT, recommended to get moving, has been ge tting more activity arund the house, cleaning the house Got a cane but has not been using- but will brin g it if shopping, for longer distances Continues to feel off balance, will use culver to steady self- no falls or near falls Re: dog adoption- not moving forward with that f or now #SOB Sleep cycle is off - typically sleeps through e night 12 hr and past few nights has been waking up around midnight, cough ing while awake though not waking him up +intermittent Dry cough, no fever, chills. Cough not worse when supine. Symbicort BID has helped - better activi ty tolerance, feels able to go outside and get around without feeling winded. Denies SO B, chest tightness or wheeze currently #Heartburn/GERD Refers during call to hiatal hernia- not seen in prev GI studies Off omeprazole since last PC appt Did have one episode of heartburn shortly after eating late and then going to bed soon after- took pepto b ismol and this helped- discussed also lifestyle mod including staying upright 30-60 min after meals, smaller meals before bedtime and symptom avoidance Did have a couple black BMs around this time (wi pepto), since resolved. Intermittent loose stools/constipation, not taking miralax regularly. Taking 2 tbsp metamucil OTC #Mood Following with psychiatrist- not interested in therapy at this time but med mgmt On sertraline 150mg/day-- doing well with this, feels mood improved. Has more energy and is cleaning the house Has crisis vet line #, encouraged to call prn Denies sI, HI, plan, attempts #HLD On rosuvastatin 20mg, tolerating well ROS: Gen: Sleeps well generally though not great past few nights- waking up and unable to get back to sleep easily. good energy, appetite good. No weight loss/gain. Denies fever/chills/weakness HEENT: Denies headaches, visual disturbances Resp: see HPI CV: Denies chest pain or pressure, palpitations, lightheadedness, DELONG GI: see HPI MSK: Denies joint pain, myalgias, swelling/redne ss of joints or extremities Neuro: Denies numbness, tingling, weakness PSYCH: Feels safe at home. Denies anxiety. Denie s feeling down, depressed or hopeless. Denies loss of interest or pleasure in previously enjoyable activities. Denies SI/HI Social History: Smoking: [] yes [x] no ETOH: [] yes [x] no How many times in the past year had 4+ drinks in one occasion Rec drugs: [] yes [x] no Caffeine: [x] yes [] no 5 cups/day (low or no caff) Activity: Likes to [employer] online it's all I do. Spends most of his day in recliner Drives: Yes, not much, tries not to- to grocery store etc. Denies near misses or accidents. goal for 5 coffee mugs a day Diet: Eating more salads. 3 eggs every other day . Has been eating packaged salads from grocery store in effort to eat healthier and has been feeli ng clearer with this. 2 coffee mugs of water a day. 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 Has been cleaning the house 2) KETOCONAZOLE 2% SHAMPOO SHAMPOO SMALL AMOUN T ACTIVE TOPICALLY ON MONDAYS AND THURSDAYS --Taking 3) LISINOPRIL 5MG TAB TAKE ONE TABLET BY MOUTH EVERY DAY ACTIVE TO CONTROL BLOOD PRESSURE --Taking 4) OMEPRAZOLE 20MG EC CAP TAKE ONE CAPSULE BY MOUTH ACTIVE EVERY DAY FOR STOMACH ACID (TAKE HALF-LAMONT R BEFORE A MEAL(S) --Not taking 5) POLYETHYLENE GLYCOL 3350 ORAL PWDR TAKE 1 C APFUL (17 ACTIVE GRAMS) BY MOUTH EVERY DAY , DISSOLVED IN 4 TO 8 OZ. CLEAR LIQUID / FOR CONSTIPATION --Not taking 6) ROSUVASTATIN CA 40MG TAB TAKE ONE-HALF TABL ET BY ACTIVE MOUTH EVERY DAY TO LOWER CHOLESTEROL --Taking 7) SERTRALINE HCL 50MG TAB TAKE THREE TABLETS BY MOUTH ACTIVE EVERY DAY FOR DEPRESSION OR ANXIETY --Taking Active Non-VA Medications Status 1) Non-VA ASPIRIN 325MG TAB 325MG MOUTH EVERY DAY ACTIVE --Taking, takes nightly. Will buy 81mg OTC 2) Non-VA CYANOCOBALAMIN 250MCG TAB 250MCG BY MOUTH ACTIVE EVERY DAY --Taking, wants to stop -Also taking metamucil, 2 tblsp per day 9 Total Medications ALLERGIES: Patient has answered NKA OBJECTIVE FINDINGS: PHYSICAL EXAM GEN: Well-appearing, well nourished and hydrated . Appropriately dressed and groomed. Calm, cooperative, pleasant demeanor. A ppears comfortable, in no apparent distress. HEENT: Normocephalic. EOM intact. Hearin g grossly intact. Nares patent without flaring. PULM: Respirations non-labored, no cough or whee ze noted. Completes sentences easily in 1 breath. NEURO: A+Ox3. CN II-XII grossly intact. No tremo r noted. PSYCH: Appropriate affect and demeanor. Maintain s eye contact. Normal speech pattern, linear thought process. ASSESSMENT/PLAN: Tatyana pimentel Will f/u with trim mechanic on 08/13 re: ROBIN- woul d get if closer to home or if we'd let him drive home a few hours afte r procedure - prefers not to get hotel here No further episodes- advised to call if any conc erning symptoms or questions #HTN Continue on lisinopril 5mg/d, BP at goal #Asthma/SOB Appears to be improving with michael r activity tolerance on Symbicort BID F/u sleep next visit - could discuss CBT-I if st ill problematic- to call with concerns #GERD Continue off omepraz ole, discussed lifestyle mod with trigger avoidance, upright after meals, pepto bismol prn for symtpo m relief Will call if worsening and could try PPI at EOD dosing #Bipolar/depression Continue on sertraline 150mg, seems to b e doing well on higher dose- continues to follow with psychiatry Congratulated on cleaning house! Declines getting dog for now- not the time #Vitamin B12 deficiency Last labs WNL, pt would like to trial decreasing meds and will trial stopping supplementation for decr pill burden Recheck in 6-12 months Discussed dietary sources B12: animal protein- e ggs, meats, fish, chicken #Continuous Health Monitoring/Prevention Sigmoid/colo due: Is interested in getting colo locally/ closer to home. Due 05/2020 AAA: ruled out 2013 Screening >65 yo: Mini-Cog next visit on VVC Counseling reviewed: Diet, exercise, fall safety , mental health resources Immunizations: Up to date [] , Pneumovax [], tetanus [due 03/06], flu vaccine [], Shingrix [], Covid [getting @ [facility] 07/05] Depression screen: []neg [x]pos Eye exam: [x] yes [] no consulting opthamolog y Dental exam [x] yes [] no needs to reschedule AD, LST: on file, not discussed today Reviewed: Medication/treatment benefits/risks/si de effects/monitoring Side effects from medications [x] yes [] no RTC: F/u in 3 months or prn Labs (14 Days) No data available CLINICAL REMINDERS Falls & Incontinence Screen: Incontinence Screen: No incontinence. Info Only: VA Video Connect Capable: VVC Modality: VA Video Connect (VVC): [place] is using their OWN technology to connect for videoconferencing. Use VIRTUAL GAS TESTER (VCFirecomms) t o create an email link that is sent to both provider and Computer with webcam/microphone Medication Reconciliation: Outpatient: Has the patient been [...] non-VA/Herbal/OTC medications were entered into CPRS. Changes: aspirin to 81mg daily - If there were any medications the patien t should no longer take, they were discontinued. D/C'd meds: vitamin B12, omeprazole - The patient/caregiver was instructed to update this list, discard old lists, and take this list to the next appo intment, whether with a VA or non-VA provider. Follow Up Colonoscopy: Colonoscopy is due based on information christie luquele to this reminder. A colonoscopy is currently scheduled or in process of being scheduled. Comment: community care consult placed f or colonoscopy closer to home per pt preference /chris/ [place] Nurse Practitioner Resident Signed: 07/29/2020 12:57 /chris/ Kar Granados, MSN, BIG DATA PLATFORM ARCHITECT Nurse Practitioner Faculty Cosigned: 07/29/2020 15:24 Receipt Acknowledged By: 07/31/2020 11:55 /chris/ DARLING VILLALOBOS 07/29/2020 ADDENDUM STATUS: COMPLETED I was present for this patient encounter and abilio santos discussed management with the resident. I reviewed the resident's note and agree with the documented plan of care. /chris/ Kar Granados MSN, BIG DATA PLATFORM ARCHITECT Nurse Practitioner Faculty Signed: 07/29/2020 15:24 07/31/2020 ADDENDUM STATUS: COMPLETED RTC scheduled /chris/ DARLING VILLALOBOS Signed: 07/31/2020 11:55
--- OUTSIDE RECORDS SUMMARY | 2020-12-05 21:43 | XMS_ITS | Encounter Summary ---
:1945 Author Organization Department [facility] Address [address] [place] [address] Care Team Providers Name Role Phone CHANDLER, [...] Number Dhillon ANTHEM PREFERRED BASIC May 17 [id number] [phone] OSCAR LITTLE P ATIENT [place]BS [place] PROVIDER SELF 2002 [id number] AN (FEDERAL) ORGANIZAT ION (PPO) [place] PREFERRED BASIC May 17 [id number] [phone] OSCAR MACEDO PATIENT FEDERAL PROVIDER SELF 2002 22 4 AN ORGANIZAT ION (PPO) [place]-F PRESCRIPT BCBS May 17, [id number] [phone] FR ZEINAOSCAR PATIENT EP BCBS ION FEP 2010 0 [id number] AN PLAN MEDICARE MEDICARE PART Jan 15, PART A [id number] OSCAR LITTLE PATIENT (WNR) (M) A 2008 [id number] 2 AN Selected Encounter This section includes the information on record at [place] for the Encounter. Date/Time Encounter Type Encounter Description Reason Provider Source Jul 05, 2020 12:00 Outpatient Encounter EVENT (HISTORICAL) AM [...] AM[facility] [place] [facility] Jul 19, 2020 01:00 PM [facility] [place] [facility] Jul 19, 2020 02:00 PM [place] [facility] Jul 22, 2020 09:00 AM [place]ORY [place]IC[place] [facility] Jul 29, 2020 11:00 AM [facility]ORY - [place]ONE [place] [facility] Jul 31, 2020 11:00 AM [facility] [place] [facility] Aug 13, 2020 10:00 AM [place]IC[place] [facility] Aug 21, 2020 10:00 AM [place]IC[place] [facility] Aug 21, 2020 11:00 AM [facility] [place] [facility] October 02, 2020 10:15 AM AM[facility]ULAT[facility] [place] [facility] October 09, 2020 01:00 PM [place]IC[place] [facility] Oct 28, 2020 11:00 AM AM[facility]UL[facility]ORY - NONE [place] [facility] Nov 04, 2020 01:00 PM AM[facility] [place] [facility] [facility] Nov 12, 2020 08:30 AM AM[facility]UL[facility]ORY - NONE [place] [facility] Nov 19, 2020 02:00 PM [place] [place] [facility] Dec 05, 2020 08:00 AM AM[facility]ULATORY - NONE [place] Dec 11, 2020 12:00 PM AM[facility] [place] [facility] Dec 23, 2020 11:00 AM [facility] [place] [facility] Dec 30, 2020 10:15 AM AMBULATORY - NONE [place] [facility] Active, Pending, and Scheduled Orders This section includes a listing of several types of active, pending, and scheduled orders, including clinic medications orders, diagnostic test orders, procedure orders and consult orders; where the start date of the order is 45 days before the date of the Encounter or 45 days after the date of the Encounter. The data comes from all [place] treatment facilities. Test Date/Time Test Type Test Details Facility Name Jul 29, 2020 12:57 PM Consult Order COMMUNITY CARE-COLONOSCOPY [facility] SCREENING Cons Community Affairs Manager's Choice Immunizations: All administered on the encounter date This section contains immunizations associated to the Encounter. Immunization Series Date Issued Reaction Comments COVID-19 (MODERNA), MRNA, LNP-S, PF, 100 1 Jul 05, 2020 MCG/0.5 ML DOSE Social History: Smoking [...] 2020 11:00 AM VA-TOBACCO FORMER USER I [facility] Tobacco Use History This section includes a history of the smoking, or tobacco-related health factors, that were collected on or before the date of the Encounter. The data comes from the [place] facility where the Encounter took place. Date/Time Smoking Status/Tobacco Use Comment [facility] Apr 09, 2020 11:00 AM VA-TOBACCO QUIT 15 YRS OR MORE [place] [facility] Jan 14, 2018 03:08 PM VA-TOBACCO FORMER USER [place] [facility] Jan 14, 2018 03:08 PM VA-TOBACCO QUIT 15 YRS OR MORE [place] [facility] Mar 16, 2017 09:08 AM QUIT TOBACCO USE > 7 YEARS AGO [place] [facility] quit 1983Mar 04, 2016 10:28 AM QUIT TOBACCO USE > 7 YEARS AGO [place] [facility] Quit 1983Mar 10, 2005 10:47 AM HISTORY OF SMOKING [place] [facility] 1983Mar 31, 2004 09:26 AM HISTORY OF SMOKING [place] [facility] Mar 31, 2004 09:26 AM QUIT TOBACCO USE > 7 YEARS AGO [facility] Aug 22, 2001 01:30 PM HISTORY OF SMOKING [facility] Advance Directives: All historical and [...]
--- OUTSIDE RECORDS SUMMARY | 2020-12-05 21:43 | XMS_ITS ---
:1945 Author Organization Department [facility] Address [address] [place] [address] Care Team Providers Name Role Phone MANNY RATEAGA Primary Care Provider Unavailable TOSHIA [place] Unavailable [...] Number Dhillon ANTHEM PREFERRED BASIC May 17 [id number] [phone] OSCAR LITTLE P ATIENT [place]BS OF [place] PROVIDER SELF 2002 [id number] AN (FEDERAL) ORGANIZAT ION (PPO) [place] PREFERRED BASIC May 17 [id number] [phone] OSCAR MACEDO PATIENT FEDERAL PROVIDER SELF 2002 22 4 AN ORGANIZAT ION (PPO) [place]-F PRESCRIPT BCBS May 17 [id number] [phone] FR OSCAR PASTRANA PATIENT EP BCBS ION FEP 2010 0 [id number] AN PLAN MEDICARE MEDICARE PART Jan 15, PART A [id number] SIDNEY OSCAR PATIENT (WNR) (M) A 2008 HU83 2 AN Selected Encounter This section includes the information on record at [place] for the Encounter. Date/Time Encounter Type Encounter Reason Provider Source Description Jul 31, 2020 OFFICE O/P EST MH INTGRTD CARE ICD-10-CM F31.9 DARRYL ARCE 11:00 AM LOW 20-29 MIN IND Bipolar disorder, E L unspecified with Provider Comments: Bipolar disorder ([facility] [id number]) IHE Encounter Template Text not used by [facility] Assessments - Encounter Diagnoses This section includes the primary and secondary diagnoses documented forthe Encounter. Date/Time Primary/Secondary Diagnosis Name Provider Source Diagnosis Jul 31, 2020 PRIMARY Bipolar disorder, LUIS CARLOS ARCE IVER 11:49 AM unspecified [place] [facility] Jul 31, 2020 SECONDARY long-term LUIS CARLOS ARCE 11:49 AM (current) use of [place] [facility] aspirin Jul 31, 2020 SECONDARY Other prison LUIS CARLOS ARCE ER 11:49 AM (current) drug [place] [facility] therapy Plan of Treatment: Future Appointments (+ [...] from all [facility]. Appointment Date/Time Appointment Type Appointment Facili ty [...] - NONE [place] [facility] Nov 04, 2020 01:00 PM [facility] [place] Nov 12, 2020 08:30 AM [place]ORY - NONE [place] [facility] Nov 19, 2020 02:00 PM [place] [facility] Dec 05, 2020 08:00 AM AM[place]ULATORY - NONE [place] [facility] Dec 11, 2020 12:00 PM [facility] [place] [place] [facility] Dec 23, 2020 11:00 AM AMBULATORY - REHAB MEDICINE [facility] Dec 30, 2020 10:15 AM AMBULATORY - NONE [facility] Jan 28, 2021 10:00 AM AMBULATORY - NONE [facility] [...] the Encounter. The data comes from all [place] treatment facilities. Test Date/Time Test Type Test Details Facility Name Jul 29, 2020 12:57 PM Consult Order COMMUNITY CARE-COLONOSCOPY [facility] SCREENING Cons Facility Maintenance Technician's Choice Social History: Smoking Status (Most current) [...] 09, 2020 11:00 AM VA-TOBACCO FORMER USER [facility] HANNA [facility] Tobacco Use History This section includes a history of the smoking, or tobacco-related health factors, that were collected on or before the date of the Encounter. The data comes from the [place] facility where the Encounter took place. Date/Time Smoking Status/Tobacco Use Comment [facility] Apr 09, 2020 11:00 AM VA-TOBACCO QUIT 15 YRS OR MORE [facility]A [facility] Jan 14, 2018 03:08 PM VA-TOBACCO FORMER USER [facility] Jan 14, 2018 03:08 PM VA-TOBACCO QUIT 15 YRS OR MORE [facility] Mar 16, 2017 09:08 AM QUIT TOBACCO USE > 7 YEARS AGO [facility] quit 1983Mar 04, 2016 10:28 AM QUIT TOBACCO USE > 7 YEARS AGO [facility] Quit 1983Mar 10, 2005 10:47 AM HISTORY OF SMOKING [facility] 1983Mar 31, 2004 09:26 AM HISTORY OF SMOKING ADITYA Gato [facility] Mar 31, 2004 09:26 AM QUIT TOBACCO USE > 7 YEARS AGO [facility]ITYA [facility] Aug 22, 2001 01:30 PM HISTORY OF SMOKING [facility] Advance Directives: All historical and current Section Date Range: From patient's date of to the date document was created. This section includes ALL of a patient's completed or amended [place] Advance and Rescinded Directives. The entries below [...] Date/Time Encounter Note(s) Provider Source Jul 31, 2020 11:36 AM MENTAL HEALTH OUTPATIENT NOTE: NATASHA ARCET LOCAL TITLE: HC Note [facility] STANDARD TITLE: MENTAL HEALTH OUTPATIENT NOTE DATE OF NOTE: JUL 31, 2020@11:36 ENTRY DATE: JUL 31, 2020@11:36:46 AUTHOR: LUIS CARLOS RACE EXP COSIGNER: URGENCY: STATUS: COMPLETED seen the [place] Video Connect: [X] Provider confirmed that [place] is currently located at the following address listed in their [facility] chart. [address] [place] [address] e-911: Call [phone] to speak with an agent who can put you in touch with a hydropulper operator at the Patient's location. Y ou [...] du ring this session has been explained. [facility] PSYCHIATRIST NOTE FOLLOW UP VISIT FOR [facility] SEEN BY A JULIET R TIME SPENT WITH PATIENT (minutes): 28 MIN PCP: MANNY ARTEAGA 6 E *WH* CHIEF COMPLAINT: bETTER, but it would be nice to get above the zero line h/o BAD, depressed HISTORY of PRESENT ILLNESS: [place] states his mood has improved a bit, and he feels he's moving in the right direction. No hypomania, altho he does wa anahi at night. Able to fall back to sleep. Appetite is good, and he's tryin g to eat a healthy diet. He started working on his taxes. He notes that shara rrhea resolved - took metamucil 2 T daily and developed constipation, but doing well now qith metamucil 1 tsp daily. He denies SI. He looks foward to getting back to more activities after second COvid vacc shot. RELEVANT CURRENT STRESSORS: UPDATES SINCE LAST V ISIT ONLY See previous notes for more complete history SIGNIFICANT PAST PSYCHIATRIC HISTORY: See previous notes for history BAD. 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) Prostate cancer (SCT 920022549) Asthma (SCT 643712702) Low back pain (SCT 651407031) History of polyp of colon (SCT 282850060Andnimd (SCT 962581742) Gastroesophageal reflux disease (SCT 235Anxiety disorder ([facility] [id number]) Bipolar disorder (SCT 55835685) Paranoia ([facility] [id number]) Hyperlipidemia ([facility] 98740707) ALLERGIES: Patient has answered NKA MEDICATIONS: Active [...] *Appearance: intact grooming and hygiene, dresse d appropriately, good nutrition, appears stated age *Motor: no restlessness or agitation -Manner: cooperative and pleasant *Speech: spontaneous, good amount, normal rate, volume and intonation *Language: no word-finding problems, no neologi sms or unusual word usage -Affect: full and reactive, mood-congruent but able to laugh and joke *Mood: depressed *Thought process: organized and goal-directed, normal rate *Associations: intact and linear *Thought content: no delusions, no bizarre cont ent, denies SI *Perception: intact, with no hallucinations *Insight/Judgment: good/good LABS: Labs (14 Days) No data available OVERALL IMPRESSION/ASSESSMENT: 75 yo with BAD is seen today for follow up re: depression. He is toelrating the higher dose of sertraline with mi n GI SE and no evidence of klarissa. Level of acuity: Routine Safety Assessment: low risk Diagnoses (formerly [place] I, II, III): BAD, AUD i n remission Psychosocial factors (formerly [place] IV): isolati on Functional Status (formerly [place] V, severity/dis ability): fair TREATMENT PLAN: Medications: Cont sertraline 150 mg, monitoring diarrhea. Warned him about possible induction of klarissa. He prefers no to s tart a mood stabilizer unless absolutely necessary. Psychosocial interventions: [facility] interventions: Discussed how to proceed after second Covid shot. Reviewed the ROBIN and provided reassurance about safety of procedure Follow-up: Return to [facility] in 3 weeks - [facility] on 08/21/ LUIS CARLOS ARCE Staff Physician Signed: 07/31/2020 11:50
--- OUTSIDE RECORDS SUMMARY | 2020-12-05 21:43 | XMS_ITS | Encounter Summary ---
:1945 Author Organization Department [facility] rs Address [address] [place] [address] Care Team Providers Name Role Phone CHANDLER, [...] Number Dhillon ANTHEM PREFERRED BASIC May 17 [id number] [phone] OSCAR LITTLE P ATIENT BCBS OF [place] PROVIDER SELF 2002 22 [id number] AN (FEDERAL) ORGANIZAT ION (PPO) [place] PREFERRED BASIC May 17 [id number] [phone] OSCAR MACEDO PATIENT FEDERAL PROVIDER SELF 2002 22 4 AN ORGANIZAT ION (PPO) [place]-F PRESCRIPT BCBS May 17, [id number] [phone] FR ZEINAOSCAR PATIENT EP BCBS ION FEP 2010 0 [id number] 331 AN PLAN MEDICARE MEDICARE PART Jan 15, PART A [id number] OSCAR LITTLE PATIENT (WNR) (M) A 2008 HU83 2 AN Selected Encounter This section includes the information on record at VA for the Encounter. Date/Time Encounter Type Encounter Description Reason Provider Source Jul 29, 2020 12:00 Outpatient Encounter EVENT (HISTORICAL) AM IHE Encounter Template Text not used by [place] Plan of Treatment: Future Appointments (+ 6 [...] appointments. The data comes from all [facility]. Appointment Date/Time Appointment Type Appointment Facili ty Name Jul 31, 2020 11:00 AM [place] [facility] Aug 13, 2020 10:00 AM [place] [facility] Aug 21, 2020 10:00 AM [place] [facility] Aug 21, 2020 11:00 AM [place] [facility] October 02, 2020 10:15 AM AMB[place]AT[place] [facility] October 09, 2020 01:00 PM [place] [facility] Oct 28, 2020 11:00 AM [place]ORY [place]ONE [place] [facility] Nov 04, 2020 01:00 PM [facility] [place] [facility] Nov 12, 2020 08:30 AM AM[place]ULATORY - NONE [place] [facility] Nov 19, 2020 02:00 PM [place] [facility] Dec 05, 2020 08:00 AM AMBULATORY - NONE [place] [facility] Dec 11, 2020 12:00 PM AM[facility] [place] [facility] Dec 23, 2020 11:00 AM [place] [facility] Dec 30, 2020 10:15 AM AMBULATORY - NONE [place] [facility] Jan 28, 2021 10:00 AM AMBULATORY - NONE [place] [facility] Active, Pending, and Scheduled Orders This section [...] Consult Order COMMUNITY CARE-COLONOSCOPY [facility] SCREENING Cons Pot Sander's Choice Social History: Smoking Status (Most current) [...] AM VA-TOBACCO FORMER USER [facility] Tobacco Use History This section includes a history of the smoking, or tobacco-related health factors, that were collected on or before the date of the Encounter. The data comes from the [place] facility where the Encounter took place. Date/Time Smoking Status/Tobacco Use Comment [facility] Apr 09, 2020 11:00 AM VA-TOBACCO QUIT 15 YRS OR MORE [place] [facility] Jan 14, 2018 03:08 PM VA-TOBACCO FORMER USER [facility] Jan 14, 2018 03:08 PM VA-TOBACCO QUIT 15 YRS OR MORE [place] [facility] Mar 16, 2017 09:08 AM QUIT TOBACCO USE > 7 YEARS AGO [facility] quit 1983Mar 04, 2016 10:28 AM QUIT TOBACCO USE > 7 YEARS AGO [facility] Quit 1983Mar 10, 2005 10:47 AM HISTORY OF SMOKING [place] [facility] 1983Mar 31, 2004 09:26 AM HISTORY OF SMOKING [facility] Mar 31, 2004 09:26 AM QUIT TOBACCO USE > 7 YEARS AGO [place] [facility] Aug 22, 2001 01:30 PM HISTORY OF SMOKING [facility] Advance Directives: All historical [...]
--- OUTSIDE RECORDS SUMMARY | 2020-12-05 21:44 | XMS_ITS | Encounter Summary ---
:1945 Author Organization Department [facility] rs Address [address] [place] [address] Care Team Providers Name Role Phone CHANDLER, [...] Number Dhillon ANTHEM PREFERRED BASIC May 17 [id number] [phone] OSCAR LITTLE P ATIENT [place] PROVIDER SELF 2002 22 [id number] AN (FEDERAL) ORGANIZAT ION (PPO) [place] PREFERRED BASIC May 17 [id number] [phone] OSCAR MACEDO PATIENT FEDERAL PROVIDER SELF 2002 22 4 AN ORGANIZAT ION (PPO) [place]-F PRESCRIPT BCBS May 17, [id number] [phone] FR ZEINAOSCAR PATIENT EP BCBS ION FEP 2010 0 [id number] 331 AN PLAN MEDICARE MEDICARE PART Jan 15, PART A [id number] OSCAR LITTLE PATIENT (WNR) (M) A 2008 HU83 2 AN Selected Encounter This section includes the information on record at VA for the Encounter. Date/Time Encounter Type Encounter Description Reason Provider Source Jun 26, 2020 08:30 Outpatient Encounter COMMUNITY CARE AM CONSULT IHE Encounter Template Text not used by [place] Plan of Treatment: Future Appointments (+ 6 [...] 20 appointments. The data comes from all [facility]. Appointment Date/Time Appointment Type Appointment Facili ty Name Jul 04, 2020 02:00 PM [place]ORY [place] [facility] Jul 17, 2020 11:15 AM [place] [place] [facility] Jul 19, 2020 01:00 PM [place] [facility] Jul 19, 2020 02:00 PM [place]ORY [place] [facility] Jul 22, 2020 09:00 AM [place]ATORY [place]IC[place] [facility] Jul 29, 2020 11:00 AM [place]ULATORY - NONE [place] [facility] Jul 31, 2020 11:00 AM [place] [facility] Aug 13, 2020 10:00 AM [place]ORY [place]IC[place] [facility] Aug 21, 2020 10:00 AM [place]ORY [place]IC[place] [facility] Aug 21, 2020 11:00 AM [place] [facility] October 02, 2020 10:15 AM [place] [facility] October 09, 2020 01:00 PM [place]ORY [place]IC[place] [facility] Oct 28, 2020 11:00 AM AMBULATORY - NONE [place] [facility] Nov 04, 2020 01:00 PM AM[facility]AT[facility] [place] [facility] Nov 12, 2020 08:30 AM AM[place]ATORY - NONE [place] [facility] Nov 19, 2020 02:00 PM AM[place]AT[place] [facility] Dec 05, 2020 08:00 AM AMBULATORY - NONE [place] [facility] Dec 11, 2020 12:00 PM AM[place] [facility] Dec 23, 2020 11:00 AM AM[place] [facility] Active, Pending, and Scheduled Orders This [...] 2020 12:57 PM Consult Order COMMUNITY CARE-COLONOSCOPY [facility] SCREENING Cons Skein Winder's Choice Social History: Smoking Status (Most current) [...] AM VA-TOBACCO FORMER USER [place] [facility] [facility] Tobacco Use History This section includes a history of the smoking, or tobacco-related health factors, that were collected on or before the date of the Encounter. The data comes from the [place] facility where the Encounter took place. Date/Time Smoking Status/Tobacco Use Comment [facility] Apr 09, 2020 11:00 AM VA-TOBACCO QUIT 15 YRS OR MORE [facility] [place] [facility] Jan 14, 2018 03:08 PM VA-TOBACCO FORMER USER [place] [facility] Jan 14, 2018 03:08 PM VA-TOBACCO QUIT 15 YRS OR MORE [facility] [place] [facility] Mar 16, 2017 09:08 AM QUIT TOBACCO USE > 7 YEARS AGO [facility] quit 1983Mar 04, 2016 10:28 AM QUIT TOBACCO USE > 7 YEARS AGO [facility] Quit 1983Mar 10, 2005 10:47 AM HISTORY OF SMOKING [place] [facility] 1983Mar 31, 2004 09:26 AM HISTORY OF SMOKING [place] [facility] Mar 31, 2004 09:26 AM QUIT TOBACCO USE > 7 YEARS AGO [facility] Aug 22, 2001 01:30 PM HISTORY OF SMOKING [place] [facility] Advance Directives: All historical and current Section Date Range: From patient's date of to the date document was created. This section includes ALL of a patient's completed or amended [place] Advance and Rescinded Directives. The entries below indicate that a directive exists for the patient, but an actual copy is not included with this document. The data comes from all [place] facilities. Date Advance Directives Provider Source Feb 23, 2014 ADVANCE DIRECTIVE EYAL MONTILLA T [facility] Encounter Notes: All associated encounter notes This section contains the clinical notes associated to the Encounter. Date/Time Encounter Note(s) Provider Source Jun 26, 2020 08:30 AM NONVA NOTE: YURIY HATCHT [facility] LOCAL TITLE: COMMUNITY CARE COORDINATION PLAN STANDARD TITLE: NONVA NOTE DATE OF NOTE: JUN 26, 2020@08:30 ENTRY DATE: OCTOBER 01, 2020@07:27:53 AUTHOR: YURIY HATCH COSIGNER: URGENCY: STATUS: COMPLETED COMMUNITY CARE COORDINATION PLAN Has ADDE NDA [place] self-presented to community emergency fa cility Emergency Notification Intake Date Presenting to the Facility: Jun [facility] Hospital Name: Hospital: [facility] Address: [address] [place] [address] City: [place] State: [place] Zip Code: [address] Chief complaint: Acute Visual Changes Primary Diagnosis: Patient Admitted? No Community Facility Point of Contact: Name: Phone: Notes under Non [place] Medical Records Notification was completed on: 06/26/20 @ 14:28 Patient Discharged: 06/26/20 Notification ID # [id number] EOC approved under 1703 by the National ER Notif ication Team [employer] Referral # [id number] /marcus HATCH Signed: 10/01/2020 07:34 Receipt Acknowledged By: 10/01/2020 07:43 /chris/ CLIFFORD DAVEY RN, EMERGENCY MANAGER INTEGRATION, OCC 10/01/2020 ADDENDUM STATUS: COMPLETED Records have been obtained with PCP sign off. No further action needed by emergency care coordination team at this time. /marcus DAVEY RN, EMERGENCY MANAGER INTEGRATION, OCC Signed: 10/01/2020 07:44
== END 2020-12-05 21:23 | disposition home or self-care (01) ==
LOC: LBN 21:22
PROVIDERS: Visit Provider Physical Therapy Assistant
DX: R10.31 Right lower quadrant pain (principal)
CPT/HCPCS: 80048; 85652; 85025; 86140

== ENCOUNTER 2020-12-13 03:20 | Outpatient (CLI) | payer OTHER, SELFPAY ==
[2020-12-13 11:50] LABS: Source Nasal/Nares
[2020-12-13 14:14] LABS: COVID-19 PCR Negative (Negative)
== END 2020-12-13 03:21 | disposition home or self-care (01) ==
LOC: LBO 03:20
PROVIDERS: Visit Provider Surgery
DX: Z20.822 Contact with and (suspected) exposure to COVID-19 (principal); Z01.818 Encounter for other preprocedural examination
CPT/HCPCS: 87635

== ENCOUNTER 2020-12-16 10:00 | Day surgery (SDC) | payer OTHER, SELFPAY ==
--- NOTE | 2020-12-16 06:58 | ENDO_ITS ---
Date of service: 12/16/20 Time of Service: 10:55 Endoscopy Report DATE OF PROCEDURE: 12/16/20 PRE-OP DIAGNOSIS: Colon Cancer Screening, diarrhea, RLQ pain and dysphagia POST-OP DIAGNOSIS: other (erosive gastritis, esophagitis, arellano-diverticulosis, polyps) PROCEDURE: 1. EGD with biopsies 2. Colonoscopy with polypectomy SURGEON: Miguelina Martinez ANESTHESIA TYPE: MAC (ASA 2/Columba Parikh, LUPILLO) ESTIMATED BLOOD LOSS: 5 PATHOLOGY: other (Pylorus bx, antrum bx, GE junction bx, ascending polyps x2, transverse polyp) COMPLICATIONS: None DISPOSITION: same day INDICATIONS: History of polyps; Screening Colonoscopy The patient is here for Colonoscopy pre-op. His last screening was in 2013 and was remarkable for polyps. He has no family history of colon cancer. He has not had any bowel habit changes. -Discussed colonoscopy bowel prep as well as the procedure. Discussed possible complications of the procedure to include bleeding, pain, perforation, missed small lesion/polyp, sore throat, aspiration and adverse reaction to the medications. Questions were answered to patient?s satisfaction. No guarantees were implied or given. Given new onset RLQ will order labs to r/o possible infectious causes. Dysphagia DDX Stricture vs Esophagitis Difficulty swallowing solid food and at times liquids as well. -Discussed Upper endoscopy procedure and the need to be NPO after midnight the night prior. Discussed possible complications of the procedure to include bleeding, pain, perforation, missed small lesion/polyp/ulcers, sore throat, aspiration and adverse reaction to the medications or sedation. Questions were answered to patient?s satisfaction. No guarantees were implied or given. PREP: Miralax/Dulcolax PROCEDURE START TIME: 10:55 PROCEDURE END TIME: 11:38 COLONOSCOPY RETRACTION TIME: 19 minutes FINDINGS: Upper- erosive gastritis and esophagitis Lower- polyps and arellano-diverticulosis PROCEDURE DESCRIPTION: After informed consent was obtained the patient was take to the procedure room and placed in a supine position. Monitors were applied and a time out was done. The patients name, date of , procedure type, allergies to medications and metal in their body was reviewed. A bite block was placed and the patient was sedated. Once sedated and comfortable the gastroscope was advanced through the oropharynx which was grossly normal into the esophagus. The proximal and mid- esophagus were normal. In the distal esophagus there was inflammation noted. The scope was advanced into the stomach and through the pylorus into the 3rd portion of the duodenum. The duodenum was noted to be normal. The scope was retracted back into the stomach. There was erosive inflammation noted in the stomach. Biopsies were done to rule out H. pylori. There were shallow ulcers. The scope was retro-flexed. The cardia and fundus were noted to be normal. There was no hiatal hernia noted. The scope was retracted back into the esophagus and biopsies were done of the GE junction to rule out Marrero's. The Z line was regular. The GE junction was at 45 cm. While the patient was still sedated they were placed in a left decubitous position. A rectal exam was done. External exam was normal. Internal exam revealed a slightly decreased sphincter tone and no palpable masses. The prostate felt normal. The scope was then introduced and retro-flexed. No internal hemorrhoids, masses or polyps were identified on retroflexion. The scope was then advanced to the cecum with difficulty. The colon was very tortuous. The ileocecal valve and appendiceal orifice were identified. The prep was adequate. The scope was then slowly retracted over 19 minutes back into the rectum. Polyps were removed with cold forceps in the ascending colon and transverse colon. There was arellano- diverticulosis noted. The scope was removed and the patient was woken up and taken back to Same day surgery in stable condition. The patient tolerated the procedure well and there were no immediate complications. Follow up: 5 years
--- NOTE | 2020-12-16 06:59 | W.PM.DSUDISC ---
Discharge Plan Disposition Patient Disposition: HOME Condition: Good Discharge Details Reason For Visit: Colon Cancer screening, diarrhea, RLQ pain, dyspha Attending Provider: Miguelina Martinez Primary Care Provider: Unknown,Unknown Home Meds and New Rx's Prescriptions: New omeprazole 40 mg capsule,delayed release(DR/EC) 40 mg PO DAILY Qty: 30 RF: 3 Continued cholecalciferol (vitamin D3) 10 mcg (400 unit) capsule 10 mcg PO DAILY RF: 0 polyethylene glycol 3350 [Miralax] 17 gram/dose powder 17 g PO PRN RF: 0 ketoconazole 2 % shampoo 1 applic topical ONCE RF: 0 rosuvastatin 40 mg tablet 40 mg PO DAILY RF: 0 aspirin 325 MG tablet 325 mg PO HS RF: 0 sertraline 100 mg tablet 100 mg PO QAM RF: 0 budesonide-formoterol [Symbicort] 80-4.5 mcg/actuation HFA aerosol inhaler 1 inh INHALATION DAILY PRNRF: 0 albuterol sulfate 90 mcg/actuation Hfa Aerosol Inhaler 2 inh INHALATION PRN PRNRF: 0 lisinopril 5 mg tablet 5 mg PO DAILY Qty: 20 RF: 0 Discontinued bisacodyl [Dulcolax (bisacodyl)] 5 mg tablet,delayed release (DR/EC) 5 mg PO ONCE Qty: 4 RF: 0 polyethylene glycol 3350 17 gram/dose powder 238 g PO ONCE Qty: 238 RF: 0 Discharge Instructions Instructions: Gastritis (DC), Diverticulosis (DC), Diet for Stomach Ulcers and Gastritis (ED), Esophagitis (DC) Additional Instructions: Findings: severe inflammation of the stomach and esophagus 3 polyps Bullock-diverticulosis Follow up: I will send you a letter with recommendations Please call if you develop: fevers >101.5 Nausea or Vomiting Abdominal pain that is not transient Rectal bleeding that is more then a tbsp A hard abdomen and inability to pass gas DAY SURGERY UNIT POST ENDOSCOPY INSTRUCTIONS Instructions for everyone who is given Anesthesia: For your safety, please do the following for the next 24 Hours: a. Do not drive or operate dangerous equipment b. Do not drink alcohol beverages or use any recreational drugs for the first 24 hours or while taking pain medications. The medications in your body may have a reaction that can be dangerous. c. Do not make any important decisions or sign any important papers 1. Generally there are no restrictions on your activity after a day or so has gone by, but you may feel a bit fatigued for a few days. 2. After you arrive home you may have a light meal and return to a normal diet as you can tolerate it without feeling sick to your stomach. 3. After surgery, you may feel pain or discomfort. This should be only transient, but if it persists please contact your doctor. 4. If there are any questions regarding the findings of your procedure, please feel free to contact your doctor. 6. If you are unable to contact your doctor with a problem, contact the hospital at [phone]. 7. Continue all your regular medications unless directed otherwise. I understand the above instructions and have no questions. Signature of Patient or Responsible Adult Escort Date/Time Name of Responsible Adult Escort Signature of Nurse Date/Time Activity:: Activity as Tolerated Diet:: high fiber diet, low acid Discharge Orders Discharge Orders: Discharge Order (Routine); Ordered 12/16/20 Ordered By: Miguelina Martinez
[2020-12-16 10:10] VITALS: BP 119/81; PULSE 85; RESP 18; TEMP 35.8; O2SAT 95
[2020-12-16] MEDS: Lactated Ringers 1,000 ML 80 ML IV (10:29)
--- NOTE | 2020-12-16 10:29 | W.ANESPRE ---
General Info Date of Service Date Performed: 12/16/20 Height: 5 ft 8.9 in Weight: 107.8 kg Body Mass Index (BMI): 35.2 Surgical Procedure: Operation Date: 12/16/20 10:35 Proposed Procedures Side Surgeon p Colonoscopy/Gastroscopy Miguelina Martinez MD Actual Procedures Side Surgeon p Colonoscopy/Gastroscopy Not Applicable Miguelina Martinez MD Pre-Op Diagnosis Post-Op Diagnosis Colon Cancer screening, diarrhea, RLQ pain, dyspha Meds Allergies and Home Medications Allergies Allergy/AdvReac Type Severity Reaction Status Date / Time doxycycline Allergy Intermediate hives Verified 12/16/20 10:15 polymyxin B sulfate Allergy Unknown Unverified 12/16/20 10:15 [From Polytrim] trimethoprim [From Polytrim] Allergy Unknown Unverified 12/16/20 10:15 Home Medication Medication Instructions Recorded aspirin 325 mg PO HS 02/03/13 albuterol sulfate 2 inh INHALATION PRN PRN 06/26/20 budesonide-formoterol [Symbicort] 1 inh INHALATION DAILY PRN 06/26/20 lisinopril 5 mg PO DAILY #20 tab 06/26/20 sertraline 100 mg PO QAM 06/26/20 ketoconazole 2 % shampoo 1 applic TOPICAL ONCE 08/20/20 rosuvastatin 40 mg tablet 40 mg PO DAILY 08/20/20 bisacodyl 5 mg tablet,delayed 5 mg PO ONCE #4 tab 12/05/20 release cholecalciferol (vitamin D3) 10 10 mcg PO DAILY 12/05/20 mcg (400 unit) capsule polyethylene glycol 3350 17 17 g PO PRN g 12/05/20 gram/dose oral powder polyethylene glycol 3350 17 238 g PO ONCE #238 g 12/05/20 gram/dose oral powder Current Visit Medications: Current Medications Generic Name Dose Route Start Last Admin Trade Name Freq PRN Reason Stop Dose Admin Hyoscyamine Sulfate 0.125 mg 12/16/20 07:00 Hyoscyamine 0.125 Mg Sl/Oral/Chew SL DIRECTED PRN Ringer's Solution 1,000 mls @ 80 mls/hr 12/16/20 06:00 IV 01/12/21 23:59 [facility] IV Miscellaneous Supplies 1 each 12/16/20 06:00 Iv Access IV 01/12/21 23:59 DIRECTED NANCY Ondansetron HCl 4 mg 12/16/20 07:00 Ondansetron 4 Mg/2 Ml Vial IVP Q4H PRN PRN Nausea / Vomiting Sodium Chloride 0 ml 12/16/20 06:00 Normal Saline Flush 10 Ml Syr IV 01/12/21 23:59 PRN PRN Sodium Chloride 0 ml 12/16/20 06:00 Normal Saline 10 Ml Vial IJ 01/12/21 23:59 DIRECTED PRN Sterile Water 0 ml 12/16/20 06:00 Water,Injection,Sterile 10 Ml Vial IJ 01/12/21 23:59 DIRECTED PRN PFSH Active Problems Active Problems: Problem Status Onset Code Screening for colon cancer Z12.11 Amaurosis fugax G45.3 Chronic kidney disease N18.9 Hallucinations R44.3 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 Obesity E66.9 JAY JAY (obstructive sleep apnea) G47.33 Tinea pedis B35.3 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 Umbilical hernia K42.9 Asthma J45.909 Paranoia F22 Anxiety F41.9 RLQ abdominal pain R10.31 Dysphagia R13.10 Medical History Medical History Bipolar affective disorder GERD (gastroesophageal reflux disease) HTN (hypertension) Hx of hyperlipidemia Lichen simplex, chronic JAY JAY (obstructive sleep apnea) Personal history of colonic polyps Prostate cancer Surgical History Surgical History History of cataract surgery History of knee surgery History of prostatectomy Tobacco Smoking/Tobacco Use Status: Former Tobacco Use Alcohol Alcohol Intake: former Substance Use Substance use: Never Details: quit smoking in 1983 quit alcohol in 1987 Vital Signs and Lab Results Vital Signs Most Recent Vital Signs in EMR: Most Recent Vital Signs Temp Pulse Resp BP Pulse Ox 35.8 C L 85 18 119/81 95 12/16/20 10:10 12/16/20 10:10 12/16/20 10:10 12/16/20 10:10 12/16/20 10:10 Lab Results Blood Type / Crossmatch: No Data to Display Complete Blood Count: White Blood Count 5.93 10^3/uL (4.4-10.8) 12/05/20 12:00 12/05/20 Red Blood Count 4.51 10^6/uL (4.36-5.78) 12/05/20 12:00 12/05/20 Hemoglobin 13.2 g/dL (13.5-17.5) L 12/05/20 12:00 12/05/20 Hematocrit 39.9 % (40.0-50.0) L 12/05/20 12:00 12/05/20 Platelet Count 199 10^3/uL (130-400) 12/05/20 12:00 12/05/20 Complete Metabolic Panel: Sodium Level 142 mmol/L (136-145) 12/05/20 12:00 12/05/20 Potassium Level 4.4 mmol/L (3.5-5.1) 12/05/20 12:00 12/05/20 Chloride Level 107 mmol/L (98-107) 12/05/20 12:00 12/05/20 Carbon Dioxide Level 26.7 mmol/L (21.0-32.0) 12/05/20 12:00 12/05/20 Blood Urea Nitrogen 19 mg/dL (7-18) H 12/05/20 12:00 12/05/20 Creatinine 1.2 mg/dL (0.70-1.30) 12/05/20 12:00 12/05/20 Estimated GFR/1.73 m2 58.86 (mL/min/1.73m2) 12/05/20 12:00 12/05/20 Calcium Level 9.2 mg/dL (8.5-10.1) 12/05/20 12:00 12/05/20 Glucose Level 98 mg/dL (74-106) 12/05/20 12:00 12/05/20 C-Reactive Protein 2.06 mg/dL (0.0-0.3) H 12/05/20 12:00 12/05/20 Liver Function Panel: No Data to Display Coagulation Panel: No Data to Display Cardiac Panel: No Data to Display Arterial Blood Gas: No Data to Display Venous Blood Gas: No Data to Display Pancreas Panel: No Data to Display Thyroid Panel: No Data to Display Infectious Disease: Coronavirus (COVID-19)(PCR) Negative (Negative) 12/13/20 08:32 12/13/20 Coronavirus 2019 Source Nasal/Nares 12/13/20 08:32 12/13/20 Blood Cultures: No Data to Display Toxicology Panel: No Data to Display Imaging and Studies Imaging and Studies EKG Summary: Conclusion Sinus rhythm...normal P axis, V-rate 60- 99 Right bundle branch block...QRSd>120, terminal axis(90,270) I have reviewed and interpreted ECG and agree with software generated interpretation. 06/26/20 Anesthesia Assessment and Plan Anesthesia History Personal History: No History of Anesthesia Complications Family History: No Family History of Anesthesia Complications Exercise Tolerance Exercise Tolerance: Metabolic Equivalents>4 Pertinent Negatives Pertinent Negatives: No Major Cardiovascular Symptoms or Complaints, No Major Pulmonary Symptoms or Complaints and Other (Chronic GERD, dysphagia. Transient left eye loss of vision, self resolving.) Cardiac & Pulmonary Exam Cardiac Exam: Normal S1/S2 Heart Sounds Pulmonary Exam: Clear Bilateral Breath Sounds Airway Exam Known Difficult Airway: No Mallampati Class: 2 Mouth Opening: Normal (> 3cm) Thyromental Distance: Greater than 3 cm Neck Range of Motion: Full ROM Neck Circumference: Normal Teeth Condition: Normal Dentition ASA Classification ASA Score: ASA 2 Emergency Case?: No NPO Status NPO Status: NPO Clears >2 hours, Solids >8 hours Anesthesia Plan Resuscitation Status: Full Code Anesthesia Technique: General Anesthesia Airway Planned: Natural Airway Monitors Used: Standard Monitors
[2020-12-16 10:42] VITALS: BMI 35.2
--- NOTE | 2020-12-16 10:51 | BOWEL_PTH ---
PATIENT: Rodrigo Morrow LOC: [facility] U#:[id number] AGE/SX: 75/M ROOM: RE12/16/[address]: Miguelina Martinez MD : 1945 BED: DIS: 12/16/2020 SPEC #: [id number] RECD: 12/16/20 13:00 STATUS: HAL REQ #: [id number] RIDDHI: 12/16/20 10:[address]: Miguelina Martinez DEPT: Surgical Specimen RECD BY: Amparo Shrestha ENTERED: 12/16/20 13:02 SP TYPE: Bowel OTHR DR: Unknown,Unknown Tissues: 1 - STOMACH BIOPSY 2 - STOMACH BIOPSY 3 - ESOPHAGUS BIOPSY 4 - BIOPSY BOWEL 5 - BIOPSY BOWEL Procedures: GROSS AND MICRO LEVEL 4 SPECIAL STAIN 1 Comments: [id number]
[2020-12-16 11:50] VITALS: BP 125/74; PULSE 62; RESP 14; TEMP 36.1; O2SAT 93
[2020-12-16 12:20] VITALS: BP 143/70; PULSE 55; RESP 18; TEMP 36; O2SAT 97
--- NOTE | 2020-12-16 12:46 | W.ANESPOSTOP ---
Postoperative Evaluation Date, Time and Location Date Performed: 12/16/20 Time Performed: 12:46 Patient Location: Day Surgery Unit Vital Signs Most Recent Imported Vital Signs: Most Recent Vital Signs Temp Pulse Resp BP Pulse Ox 36 C L 55 L 18 143/70 H 97 12/16/20 12:20 12/16/20 12:20 12/16/20 12:20 12/16/20 12:20 12/16/20 12:20 Pain Score Most Recent Pain Score: Most Recent Pain Score Pain Level 0 12/16/20 12:20 Assessment Mental Status: Awake (Alert & Oriented to Patient Baseline) Airway and Respiratory Function: Patent airway with normal (patient baseline) respiratory exam Cardiovascular Function: Hemodynamically Stable Hydration Status: Adequately Hydrated Nausea & Vomiting: No Nausea or Vomiting Pain: Pt. Denies Any Pain Peripheral Nerve Block: Patient did not receive a nerve block
== END 2020-12-16 13:00 | disposition home or self-care (01) ==
PROVIDERS: Visit Provider Surgery
PROC: (CPT 45380; principal; 2020-12-16 10:30)
DX: Z12.11 Encounter for screening for malignant neoplasm of colon (principal); K29.60 Other gastritis without bleeding; D12.2 Benign neoplasm of ascending colon; K57.30 Diverticulosis of large intestine without perforation or abscess without bleeding; K20.90 Esophagitis, unspecified without bleeding; Z86.010 Personal history of colon polyps; K31.89 Other diseases of stomach and duodenum; D12.3 Benign neoplasm of transverse colon
CPT/HCPCS: 45380; 43239; 88305; 88312; J2001; J2704

== ENCOUNTER 2021-01-16 10:49 | Emergency (ER) | payer OTHER, SELFPAY ==
[2021-01-16] VITALS (47 sets, daily range): BP systolic 120–153; BP diastolic 67–88; PULSE 52–83; RESP 9–25; TEMP 36.5–37.1; O2SAT 94–99
--- NOTE | 2021-01-16 10:45 | RT.EKG_ITS ---
APPROVED REPORT Exam: Resting ECG Reason for Exam: chest pain Patient Location: E HR:74 bpm ECG Measurements Heart Rate 74 AXIS TX 199 P 81 QRSd 147 QRS -66 QT 419 T 1 QTc 466 Conclusion Sinus rhythm...normal P axis, V-rate 60- 99 RBBB and LAFB...QRSd >120mS, axis(-40,240). Sinus. RBBB. LAFB. No STEMI. No significant change from previous. I have reviewed and interpreted ECG and agree with software generated interpretation.
--- NOTE | 2021-01-16 10:50 | ED.GENADUL_ITS ---
Discharge Plan Disposition Patient Disposition: HOME Condition: Improving Discharge Details Clinical Impression: Chest pain, Back pain Primary Care Provider: Unknown,Unknown ED Provider: Fabienne Quiles Home Meds and New Rx's Prescriptions: Continued polyethylene glycol 3350 [Miralax] 17 gram/dose powder 17 g PO PRN RF: 0 ketoconazole 2 % shampoo 1 applic topical ONCE RF: 0 rosuvastatin 40 mg tablet 40 mg PO DAILY RF: 0 aspirin 325 MG tablet 325 mg PO HS RF: 0 vitamin A 10,000 unit Tablet 1,500 mcg PO DAILY RF: 0 sertraline 100 mg tablet 100 mg PO QAM RF: 0 budesonide-formoterol [Symbicort] 80-4.5 mcg/actuation HFA aerosol inhaler 1 inh INHALATION DAILY PRNRF: 0 albuterol sulfate 90 mcg/actuation Hfa Aerosol Inhaler 2 inh INHALATION PRN PRNRF: 0 omeprazole 40 mg capsule,delayed release(DR/EC) 40 mg PO DAILY Qty: 30 RF: 3 Discharge Instructions Instructions: Chest Pain (ED), Back Pain (ED) Additional Instructions: Drink plenty of fluids and get plenty of rest. Alternate tylenol and motrin as needed and directed for pain. You will receive a call from care management regarding a follow-up appointment with the primary care doctor in this area for reevaluation, to discuss treatment of your sleep apnea, and to consider outpatient stress test and/or echocardiogram for further evaluation of your chest and back pain if your symptoms persist or worsen. Return immediately to the emergency department if you develop any worsening or new concerning symptoms. Discharge Data Discharge Date/Time-TO BE ENTERED AT DEPARTURE: 01/16/21 16:00 Discharge Physician: Fabienne Quiles Medical Decision Making 1100 -- 75-year-old male with a history of bipolar disorder, anxiety and depression, GERD, hypertension, hyperlipidemia, obesity, obstructive sleep apnea, prostate cancer and prostatectomy presents for a brief episode of left- sided chest pain followed by a persistent mid scapular pain since this morning. Denies any chest pain at present. EKG rate of 74, sinus, right bundle branch block and left anterior fascicular block. No STEMI. No significant change from previous. Vitals within normal limits. Patient appears comfortable and nontoxic. He has no left chest or mid scapular tenderness. Discussed at length with patient regarding his noncompliance with his CPAP machine and that this can have long- term consequences which can cause respiratory, cardiac and neurologic disability. Differential diagnosis includes ACS, PE, dissection, musculoskeletal. Will place an IV, screening labs, CT chest and reassess. 1320 -- labs and imaging reviewed. Troponin negative. CTA chest negative. Heart score 3. We will plan for repeat troponin and EKG. 1530 -- Repeat troponin negative. Repeat EKG unchanged. Patient reassessed and pain much improved and he feels good to go home. [facility] and [facility]. Will place patient on care management list to help arrange for an earlier follow-up appointment with his PCP or with the [facility] if possible for reevaluation and to discuss an outpatient stress test or echocardiogram if indicated. Usual and customary return precautions given prior to discharge. Medical Records Medical records reviewed: Yes I reviewed the patient's medical records. Imaging Data Radiologic Study: Radiologist's impression: CT THORAX CTA CLINICAL HISTORY: L sided chest pain, mid-scapular pain. TECHNIQUE: Imaging Protocol: Axial CT angiography was performed with multi- slice acquisition and multi-planar and/or 3D reconstructions. CONTRAST MATERIAL: Intravenous: Omnipaque 350 Contrast volume:100 cc COMPARISON: CT CHEST FOR PULMONARY EMBOLUS from 05/13/2015 FINDINGS: Pulmonary Arteries: No evidence of filling defect to suggest pulmonary emboli. Tracheobronchial tree: Patent where visualized. Mediastinum and Amber: No dominant adenopathy or fluid collection. Pulmonary parenchyma: No consolidation or dominant measurable mass. No architectural distortion. Pleura: No effusion or pneumothorax. Heart: The heart is not dilated. Moderate coronary artery calcifications are seen. Aorta: Thoracic aorta non-dilated. Mild atherosclerotic changes. No dissection. Upper abdomen: Unremarkable. Celiac, SMA and renal arteries are intact. Bones: Degenerative disc changes in the spine. IMPRESSION: No evidence of pulmonary embolism. No acute abnormality. Lab Data Lab results reviewed: Yes I reviewed the patient's lab results. Labs: Laboratory Tests Range/Units 01/16/21 01/16/21 01/16/21 11:15 11:15 11:15 WBC (4.4-10.8) 10^3/uL 5.81 RBC (4.36-5.78) 10^6/uL 4.93 Hgb (13.5-17.5) g/dL 14.2 Hct (40.0-50.0) % 43.5 MCV (80-95) fL 88.2 MCH (27.0-33.0) pg 28.8 MCHC (32.0-36.0) % 32.6 RDW (11.8-14.1) % 13.4 Plt Count (130-400) 10^3/uL 202 MPV (8.0-11.0) fL 9.6 Immature Gran % 0.5 Neutrophils % 66.9 Lymphocytes % 20.7 Monocytes % 7.1 Eosinophils % 4.1 Basophils % 0.7 Nucleated RBC % % 0 Absolute Neutrophils (1.2-6.7) 10^3/uL 3.89 Absolute Lymphocytes (1.2-3.4) 10^3/uL 1.20 Absolute Monocytes (0.1-0.8) 10^3/uL 0.41 Absolute Eosinophils (0.0-0.7) 10^3/uL 0.24 Absolute Basophils (0.0-0.2) 10^3/uL 0.04 Sodium Cancelled Potassium Cancelled Chloride Cancelled Carbon Dioxide Cancelled Anion Gap Cancelled BUN Cancelled Creatinine Cancelled Estimated GFR/1.73 m2 Cancelled Glucose Cancelled Calcium Cancelled Magnesium Cancelled Total Bilirubin Cancelled AST Cancelled ALT Cancelled Alkaline Phosphatase Cancelled Troponin I Cancelled Total Protein Cancelled Albumin Cancelled Lipase (73-393) U/L Range/Units 01/16/21 01/16/21 01/16/21 11:43 11:43 14:42 WBC (4.4-10.8) 10^3/uL RBC (4.36-5.78) 10^6/uL Hgb (13.5-17.5) g/dL Hct (40.0-50.0) % MCV (80-95) fL MCH (27.0-33.0) pg MCHC (32.0-36.0) % RDW (11.8-14.1) % Plt Count (130-400) 10^3/uL MPV (8.0-11.0) fL Immature Gran % Neutrophils % Lymphocytes % Monocytes % Eosinophils % Basophils % Nucleated RBC % % Absolute Neutrophils (1.2-6.7) 10^3/uL Absolute Lymphocytes (1.2-3.4) 10^3/uL Absolute Monocytes (0.1-0.8) 10^3/uL Absolute Eosinophils (0.0-0.7) 10^3/uL Absolute Basophils (0.0-0.2) 10^3/uL Sodium 142 Potassium 4.1 Chloride 106 Carbon Dioxide 26.7 Anion Gap 9.3 BUN 18 Creatinine 1.3 Estimated GFR/1.73 m2 53.67 Glucose 111 H Calcium 9.4 Magnesium 1.9 Total Bilirubin 0.6 AST 43 H ALT 38 Alkaline Phosphatase 83 Troponin I < 0.05 < 0.05 Total Protein 7.2 Albumin 3.7 Lipase (73-393) U/L Range/Units 01/16/21 14:42 WBC (4.4-10.8) 10^3/uL RBC (4.36-5.78) 10^6/uL Hgb (13.5-17.5) g/dL Hct (40.0-50.0) % MCV (80-95) fL MCH (27.0-33.0) pg MCHC (32.0-36.0) % RDW (11.8-14.1) % Plt Count (130-400) 10^3/uL MPV (8.0-11.0) fL Immature Gran % Neutrophils % Lymphocytes % Monocytes % Eosinophils % Basophils % Nucleated RBC % % Absolute Neutrophils (1.2-6.7) 10^3/uL Absolute Lymphocytes (1.2-3.4) 10^3/uL Absolute Monocytes (0.1-0.8) 10^3/uL Absolute Eosinophils (0.0-0.7) 10^3/uL Absolute Basophils (0.0-0.2) 10^3/uL Sodium Potassium Chloride Carbon Dioxide Anion Gap BUN Creatinine Estimated GFR/1.73 m2 Glucose Calcium Magnesium Total Bilirubin AST ALT Alkaline Phosphatase Troponin I Total Protein Albumin Lipase (73-393) U/L 105 ECG Data Attestation: I personally reviewed and interpreted this ECG (s) as follows: Interpretation: #1 -- Rate of 74, sinus. Right bundle branch block. Left anterior fascicular block. No STEMI. No significant change from previous EKG. #2 -- Rate of 57, sinus. RBBB. No STEMI. No significant change from previous EKG. HPI General Mode of arrival: ambulatory . Date/Time Provider Initiated Documentation: 01/16/21 10:50 . Limitations to Documentation: no limitations . Information obtained by: patient . HPI Narrative: Pt is a 75yo male with a history of anxiety, obesity, bipolar, GERD, hypertension, hyperlipidemia, sleep apnea, prostate cancer with prostatectomy presents for an episode of left-sided chest pain that lasted a few minutes and occurred while he was getting out of bed this morning. Patient states he was physically getting out of bed this morning when he developed left-sided chest pain which feels like a horse with CABG in the chest that lasted a few minutes and then resolved. Patient states this was followed by aching mid scapular pain which has been constant for the past few hours. He has not taken any medication for pain. Patient states he had an episode 2 to 3 days ago at home while he was laying in bed and when he felt dizziness and felt like my heart stopped beating and I stopped breathing . He states this lasted a few minutes and then resolved. He states he had been feeling fine until the episode this morning. He states he has sleep apnea and is supposed to wear his CPAP at night but states it is not because it is t oo cumbersome. Denies any recent fever, cough, vomiting, diarrhea. He denies any chest pain or shortness of breath at present. Related Data Home Medications Medication Instructions Recorded Confirmed aspirin 325 mg PO HS 02/03/13 01/16/21 albuterol sulfate 2 inh INHALATION PRN PRN 06/26/20 01/16/21 budesonide-formoterol [Symbicort] 1 inh INHALATION DAILY PRN 06/26/20 01/16/21 sertraline 100 mg PO QAM 06/26/20 01/16/21 ketoconazole 2 % shampoo 1 applic TOPICAL ONCE 08/20/20 01/16/21 rosuvastatin 40 mg tablet 40 mg PO DAILY 08/20/20 01/16/21 polyethylene glycol 3350 17 17 g PO PRN g 12/05/20 01/16/21 gram/dose oral powder omeprazole 40 mg PO DAILY #30 cap 12/16/20 01/16/21 vitamin A 1,500 mcg PO DAILY 01/16/21 01/16/21 Previous Rx's Medication Instructions Recorded omeprazole 40 mg PO DAILY #30 cap 12/16/20 Allergies Allergy/AdvReac Type Severity Reaction Status Date / Time doxycycline Allergy Intermediate hives Verified 01/16/21 11:03 polymyxin B sulfate Allergy Unknown Unverified 01/16/21 11:03 [From Polytrim] trimethoprim [From Polytrim] Allergy Unknown Unverified 01/16/21 11:03 General INÉS: 2 Review of Systems All systems reviewed & are unremarkable except as noted in HPI and below Constitutional Constitutional: Reports as per HPI, Denies chills and Denies fever(s) Eyes Eyes: Denies blurry vision ENT Ears, Nose, Mouth, and Throat: Denies dizziness, Denies sore throat and Denies throat swelling Cardiovascular Cardiovascular: Reports chest pain and Denies dyspnea Respiratory Respiratory: Denies cough and Denies dyspnea Gastrointestinal Gastrointestinal: Denies abdominal pain, Denies diarrhea and Denies vomiting Genitourinary Genitourinary: Denies hematuria and Denies dysuria Musculoskeletal Musculoskeletal: Reports back pain and Denies numbness Integumentary/Breasts Skin/Breast: Denies lesions and Denies rash Neurologic Neurologic: Denies dizziness, Denies localized weakness and Denies numbness Allergic/Immunologic Allergic/Immunologic: Denies throat swelling [facility] Medical History (Updated 01/16/21 @ 15:40 by Fabienne Quiles DO) Bipolar affective disorder GERD (gastroesophageal reflux disease) HTN (hypertension) Hx of hyperlipidemia Lichen simplex, chronic JAY JAY (obstructive sleep apnea) Personal history of colonic polyps Prostate cancer Surgical History (Updated 12/23/20 @ 10:17 by Nisreen Mora) History of cataract surgery History of colonoscopy (~12/2020) History of esophagogastroduodenoscopy (EGD) (~12/2020) History of knee surgery History of prostatectomy Social History Smoking/Tobacco Use Status: Former Tobacco Use Smoking risk assessment performed?: Yes Alcohol Intake: former Drug use: Never Substance use type: does not use Details: quit smoking in 1983 quit alcohol in 1987 Do you feel safe at home: Yes Do you feel safe in your relationship?: Yes Exam Const General: cooperative and no acute distress HENMT Head: normal to inspection Face and sinus: normal facial exam Eyes General: appearance normal, both eyes and all related structures EOM: EOM intact bilaterally Neck Neck: normal visual inspection and No submandibular swelling Lymphatic: no lymphadenopathy noted Chest Chest: normal inspection of the chest and no tenderness Resp Effort & Inspection: normal respiratory effort and able to speak in complete sentences Auscultation: clear to auscultation bilaterally Cardio Rate: regular rate Rhythm: regular rhythm GI Inspection: normal to inspection Palpation: soft, not firm, not rigid and nontender Auscultation: normal bowel sounds Back/Spine/Pelvis Thoracic/Lumbar Spine: thoracic and lumbar spine normal to inspection and No paraspinal tenderness Skin General skin exam: no rashes or lesions noted Neuro General: patient alert, patient awake and patient oriented x3 Cognition: normal cognition Speech: speech normal Motor: muscle tone normal throughout Sensory Exam: no sensory deficits noted Extrem General: normal to inspection, full ROM, capillary refill normal, no calf tenderness bilaterally and no edema Psych Appearance: grossly normal Mental Status: mental status grossly normal Speech and Movement: speech and movement normal Affect: normal affect
[2021-01-16 11:26] LABS: Abs Immature Grans 0.03 10^3/uL (0.0-0.06); Absolute Basophil Count 0.04 10^3/uL (0.0-0.2); Absolute Eosinophil Count 0.24 10^3/uL (0.0-0.7); Absolute Monocyte Count 0.41 10^3/uL (0.1-0.8); Absolute Neutrophil Count 3.89 10^3/uL (1.2-6.7); Basophils % 0.7; Eosinophils % 4.1; HCT 43.5 % (40.0-50.0); HGB 14.2 g/dL (13.5-17.5); Immature Grans % 0.5; Lymphocytes % 20.7; MCH 28.8 pg (27.0-33.0); MCHC 32.6 % (32.0-36.0); MCV 88.2 fL (80-95); MPV 9.6 fL (8.0-11.0); Monocytes % 7.1; Neutrophils % 66.9; Nucleated RBC 0 %; RBC 4.93 10^6/uL (4.36-5.78); RDW 13.4 % (11.8-14.1); RDW-SD 43.6 fL; WBC 5.81 10^3/uL (4.4-10.8)
--- NOTE | 2021-01-16 11:30 | DI.CT_ITS ---
Exam(s) CT THORAX CTA EXAM: CT THORAX CTA CLINICAL HISTORY: L sided chest pain, mid-scapular pain. TECHNIQUE: Imaging Protocol: Axial CT angiography was performed with multi-slice acquisition and mu lti-planar and/or 3D reconstructions. CONTRAST MATERIAL: Intravenous: Omnipaque 350 Contrast volume:100 cc COMPARISON: CT CHEST FOR PULMONARY EMBOLUS from 05/13/2015 FINDINGS: Pulmonary Arteries: No evidence of filling defect to suggest pulmonary emboli. Tracheobronchial tree: Patent where visualized. Mediastinum and Amber: No dominant adenopathy or fluid collection. Pulmonary parenchyma: No consolidation or dominant measurable mass. No architectural distortion. Pleura: No effusion or pneumothorax. Heart: The heart is not dilated. Moderate coronary artery calcifications are seen. Aorta: Thoracic aorta non-dilated. Mild atherosclerotic changes. No dissection. Upper abdomen: Unremarkable. Celiac, SMA and renal arteries are intact. Bones: Degenerative disc changes in the spine. IMPRESSION: No evidence of pulmonary embolism. No acute abnormality. RADIATION DOSE DELIVERED: 759.84mGy.cm Total DLP DATA REPOSITORY: All CT scans at this facility are submitted to the National Radiology Data Registry (NRDR) Dose Index Registry (DIR) with the [employer] ([employer]). RADIATION OPTIMIZATION: All CT scans at this facility use at least one of these dose optimization te chniques: automated exposure control; mA and/or kV adjustment per patient size (includes targeted exa ms where dose is matched to clinical indication); or iterative reconstruction.
[2021-01-16 11:52] LABS: Platelet Count 202 10^3/uL (130-400)
[2021-01-16] MEDS: ACETAMINOPHEN 1,000 MG/100 ML BTL 400 MG IVPB (11:57)
[2021-01-16] MEDS: Normal Saline 500 ML IV (11:57)
[2021-01-16 12:01] LABS: Magnesium 1.9 mg/dL (1.8-2.4)
[2021-01-16 12:08] LABS: ALT 38 U/L (16-63); AST 43 U/L (15-37); Albumin 3.7 g/dL (3.4-5.0); Alkaline Phosphatase 83 U/L (46-116); Anion Gap 9.3 mmol/L (3-11); BUN 18 mg/dL (7-18); Bilirubin, Total 0.6 mg/dL (0.2-1.0); CO2 26.7 mmol/L (21.0-32.0); CREATININE 1.3 mg/dL (0.70-1.30); Calcium 9.4 mg/dL (8.5-10.1); Chloride 106 mmol/L (98-107); Estimated GFR 53.67 (mL/min/1.73m2); Glucose 111 mg/dL (74-106); Potassium 4.1 mmol/L (3.5-5.1); Sodium 142 mmol/L (136-145); Total Protein 7.2 g/dL (6.4-8.2); Troponin I < 0.05 ng/mL (<0.06)
--- NOTE | 2021-01-16 13:02 | NUR.NOTE ---
Resting quietly with HOB elevated. Denies needs or pain. IV fluids infused. Warm blanket provided. Lights dimmed for comfort. Awaiting CT scan.Nursing Note:
--- NOTE | 2021-01-16 13:06 | NUR.NOTE ---
To CT Scan per cartNursing Note:
--- NOTE | 2021-01-16 13:21 | NUR.NOTE ---
Returns from DI. Monitors reapplied. Denied needs. Nursing Note:
[2021-01-16] MEDS: Ketorolac 30 MG/ML VIAL IVP (13:55)
[2021-01-16] MEDS: Dexamethasone 10 MG/ML VIAL IVP (13:55)
[2021-01-16] MEDS: Omnipaque 350 MG/ML 100 ML BTL IJ (14:04)
--- NOTE | 2021-01-16 14:30 | RT.EKG_ITS ---
APPROVED REPORT Exam: Resting ECG Reason for Exam: chest pain Patient Location: E HR:57 bpm ECG Measurements Heart Rate 57 AXIS NJ 220 P 64 QRSd 154 QRS -17 QT 488 T 39 QTc 477 Conclusion Sinus bradycardia...rate< 60 Prolonged NJ interval...NJ >220, V-rate 50- 90 Right bundle branch block...QRSd>120, terminal axis(90,270). Sinus. RBBB. No STEMI. No change from previous. I have reviewed and interpreted ECG and agree with software generated interpretation.
[2021-01-16 15:07] LABS: Troponin I < 0.05 ng/mL (<0.06)
--- NOTE | 2021-01-16 15:48 | NUR.NOTE ---
referral to cm , please call pt before setting up pcp.
[2021-01-16 16:34] LABS: Lipase 105 U/L (73-393)
== END 2021-01-16 16:00 | disposition home or self-care (01) ==
PROVIDERS: Emergency Provider Physician Assistant
DX: R07.89 Other chest pain (principal); M54.89 Other dorsalgia; I45.2 Bifascicular block; Z91.19 Patient's noncompliance with other medical treatment and regimen
CPT/HCPCS: 36415; 71275; 80053; 83690; 93005; 96361; 96365; 96375; 99285; 83735; 84484; 85025; 93010; J0131; J1100; J1885; J3490

== ENCOUNTER 2022-07-02 21:28 | Observation (INO) | payer OTHER, SELFPAY ==
[2022-07-02] VITALS (20 sets, daily range): BP systolic 106–181; BP diastolic 51–83; PULSE 61–77; RESP 15–27; TEMP 36.4; O2SAT 95–100
--- NOTE | 2022-07-02 21:30 | RT.EKG_ITS ---
APPROVED REPORT Exam: Resting ECG Reason for Exam: dizziness Patient Location: E HR:67 bpm ECG Measurements Heart Rate 67 AXIS WV 214 P 71 QRSd 156 QRS -64 QT 431 T 28 QTc 457 Conclusion Sinus rhythm...normal P axis, V-rate 60- 99 Borderline prolonged WV interval...WV >212, V-rate 50- 90 RBBB and LAFB...QRSd >120mS, axis(-40,240). Sinus. RBBB. LAFB. No STEMI. I have reviewed and interpreted ECG and agree with software generated interpretation.
[2022-07-02] MEDS: Normal Saline 250 ML IV (22:00)
--- NOTE | 2022-07-02 22:15 | DI.RAD_ITS ---
Exam(s) XR CHEST 2V PA LATERAL EXAM: XR CHEST 2V PA LATERAL CLINICAL HISTORY: dizziness, r/o acute disease TECHNIQUE: 2D digital imaging was performed. COMPARISON: CT CT THORAX CTA from 01/16/2021 FINDINGS: Leads overlie the chest. HEART: Normal size. Aorta: Not dilated. PULMONARY VASCULATURE: Normal. LUNGS: Clear. PLEURAL SPACE: No pleural effusion or pneumothorax. BONE:Unremarkable for age. IMPRESSION: No acute abnormality. DATA REPOSITORY: RADIATION DOSE DELIVERED:
[2022-07-02 22:21] LABS: Abs Immature Grans 0.03 10^3/uL (0.0-0.06); Absolute Basophil Count 0.03 10^3/uL (0.0-0.2); Absolute Eosinophil Count 0.21 10^3/uL (0.0-0.7); Absolute Lymphocyte Count 1.92 10^3/uL (1.2-3.4); Absolute Monocyte Count 0.42 10^3/uL (0.1-0.8); Absolute Neutrophil Count 3.12 10^3/uL (1.2-6.7); Basophils % 0.5; Eosinophils % 3.7; Immature Grans % 0.5; Lymphocytes % 33.5; MCH 29.4 pg (27.0-33.0); MCHC 33.3 % (32.0-36.0); MCV 88 fL (80-95); MPV 9.6 fL (8.0-11.0); Monocytes % 7.3; Neutrophils % 54.5; Platelet Count 197 10^3/uL (130-400); RBC 4.76 10^6/uL (4.36-5.78); RDW 13.2 % (11.8-14.1); RDW-SD 42.5 fL; WBC 5.73 10^3/uL (4.4-10.8)
--- NOTE | 2022-07-02 22:26 | W.ED.GENAD ---
Discharge Plan Disposition Patient Disposition: Admit to [facility] Discharge Details Clinical Impression: TIA (transient ischemic attack), Dizziness, Episode of visual loss of left eye Primary Care Provider: Unknown,Unknown ED Provider: Fabienne Quiles Home Meds and New Rx's Prescriptions: No Action polyethylene glycol 3350 [Miralax] 17 gram/dose powder 17 g PO PRN cholecalciferol (vitamin D3) 50 mcg (2,000 unit) capsule 50 mcg PO DAILY ketoconazole 2 % shampoo 1 applic topical ONCE rosuvastatin 40 mg tablet 40 mg PO DAILY budesonide-formoterol [Symbicort] 80-4.5 mcg/actuation HFA aerosol inhaler 1 inh INHALATION DAILY PRN albuterol sulfate 90 mcg/actuation Hfa Aerosol Inhaler 2 inh INHALATION PRN PRN omeprazole 40 mg capsule,delayed release(DR/EC) 40 mg PRN Medical Decision Making 2199 -- 77-year-old male with a history of obesity, hypertension, obstructive sleep apnea, chronic kidney disease, TIA, amaurosis fugax, asthma and depression presents for a 5-minute episode of dizziness with left eye complete vision loss. Currently asymptomatic. EKG notes a rate of 67, sinus, right bundle branch block, left anterior fascicular block, no STEMI and nondiagnostic. Blood pressure on arrival 181/83. Blood pressure now 133/55. He has no acute findings on exam or focal deficits. Suspect TIA/amaurosis fugax. At this time of day, we do not have MRI capability. We will proceed with CTA head and neck and plan for admission for MRI and neurology consultation. 0010 --labs and imaging reviewed and unremarkable. CTA head and neck negative for acute findings. Chest x-ray negative. Will order full dose aspirin for suspected TIA. We will consult [facility] neurology for recommendations. Discussed with patient at bedside and he denies any return of symptoms. Discussed with patient that I would recommend admission for MRI brain. Patient states he is followed at the [place]. Called the [place] and they state patient can be transferred but he would potentially have to pay for the ambulance ride which was discussed with patient and he would prefer not to do this. [facility] and he is agreeable to stay here. Case discussed with hospitalist who accepts patient for admission. 0145 --discussed with [facility] neurology who agrees with dual antiplatelet therapy with Plavix a 75 mg once daily for 21 days and then to just continue aspirin 81 mg once daily. Agrees with plan for MRI brain, carotid ultrasound and echo tomorrow. Recommends ophthalmology referral as a central retinal vein occlusion or ophthalmic artery occlusion potential diagnoses. Recommends obtaining an ESR. Medical Records Medical records reviewed: Yes I reviewed the patient's medical records. Imaging Data Radiologic Study: Radiologist's impression: CTA Head With Contrast, Arteriography Exam date and time: 07/02/2022 11:24 PM Age: 77 years old Clinical indication: Dizziness and giddiness TECHNIQUE: Imaging protocol: Computed tomographic angiography of the head with contrast. Exam focused on the arteries. 3D rendering (Not supervised by radiologist): MIP and/or 3D reconstructed images were created by the technologist. Contrast material: [id number]; Contrast volume: 85 ml; Contrast route: INTRAVENOUS (IV);? COMPARISON: MR ANGIO BRAIN WO 06/26/2020 11:43 AM FINDINGS: ANTERIOR CIRCULATION: Right internal carotid artery: Intracranial segment is patent with no significant stenosis. No aneurysm. Right middle cerebral artery: No occlusion or significant stenosis. No aneurysm.? Right anterior cerebral artery: No occlusion or significant stenosis. No aneurysm.? Left internal carotid artery: Intracranial segment is patent with no significant stenosis. No aneurysm. Left middle cerebral artery: No occlusion or significant stenosis. No aneurysm. ? Left anterior cerebral artery: No occlusion or significant stenosis. No aneurysm.? POSTERIOR CIRCULATION: Right vertebral artery: No occlusion or significant stenosis. No aneurysm.? Left vertebral artery: No occlusion or significant stenosis. No aneurysm.? Basilar artery: No occlusion or significant stenosis. No aneurysm. Right posterior cerebral artery: No occlusion or significant stenosis. No aneurysm.? Left posterior cerebral artery: No occlusion or significant stenosis. No aneurysm.? Brain: No definite mass, mass effect, or midline shift. Cerebral ventricles: No ventriculomegaly. Bones/joints: Unremarkable. No acute fracture. Soft tissues: Unremarkable. IMPRESSION: No large vessel stenosis or occlusion. CTA Neck With Contrast Exam date and time: 07/02/2022 11:24 PM Age: 77 years old Clinical indication: Dizziness and giddiness TECHNIQUE: Imaging protocol: Computed tomographic angiography of the neck with contrast. 3D rendering (Not supervised by radiologist): MIP and/or 3D reconstructed images were created by the technologist. Contrast material: [id number]; Contrast volume: 85 ml; Contrast route: INTRAVENOUS (IV);? COMPARISON: MR ANGIO NECK WO 06/26/2020 11:43 AM FINDINGS: Right common carotid artery: No stenosis. No dissection or occlusion. Right internal carotid artery: No stenosis of the extracranial segment. No dissection or occlusion. Right external carotid artery: No occlusion or stenosis of the origin.? Left common carotid artery: No stenosis. No dissection or occlusion. Left internal carotid artery: No stenosis of the extracranial segment. No dissection or occlusion. Left external carotid artery: No occlusion or stenosis of the origin.? Right vertebral artery: No stenosis. No dissection or occlusion. Left vertebral artery: No stenosis. No dissection or occlusion. Soft tissues: Normal. No significant soft tissue swelling. Bones/joints: No acute fracture. IMPRESSION: No stenosis or occlusion. XR Chest Exam date and time: 07/02/2022 11:40 PM Age: 77 years old Clinical indication: Dyspnea TECHNIQUE: Imaging protocol: Radiologic exam of the chest. Views: 2 views. COMPARISON: CR XR CHEST 2V PA LATERAL 06/26/2020 10:03 AM FINDINGS: Lungs: Unremarkable. No consolidation. Pleural spaces: Unremarkable. No pleural effusion. No pneumothorax. Heart/Mediastinum: Unremarkable. No cardiomegaly. Bones/joints: Unremarkable. IMPRESSION: No acute findings. Lab Data Lab results reviewed: Yes I reviewed the patient's lab results. Labs: Laboratory Tests Range/Units 07/02/22 07/02/22 22:00 22:00 WBC (4.4-10.8) 10^3/uL 5.73 RBC (4.36-5.78) 10^6/uL 4.76 Hgb (13.5-17.5) g/dL 14.0 Hct (40.0-50.0) % 42.0 MCV (80-95) fL 88 MCH (27.0-33.0) pg 29.4 MCHC (32.0-36.0) % 33.3 RDW (11.8-14.1) % 13.2 Plt Count (130-400) 10^3/uL 197 MPV (8.0-11.0) fL 9.6 Immature Gran % 0.5 Neutrophils % 54.5 Lymphocytes % 33.5 Monocytes % 7.3 Eosinophils % 3.7 Basophils % 0.5 Nucleated RBC % (0.0-0.3) % 0.0 Absolute Neutrophils (1.2-6.7) 10^3/uL 3.12 Absolute Lymphocytes (1.2-3.4) 10^3/uL 1.92 Absolute Monocytes (0.1-0.8) 10^3/uL 0.42 Absolute Eosinophils (0.0-0.7) 10^3/uL 0.21 Absolute Basophils (0.0-0.2) 10^3/uL 0.03 Sodium (136-145) mmol/L 140 Potassium (3.5-5.1) mmol/L 3.6 Chloride (98-107) mmol/L 103 Carbon Dioxide (21.0-32.0) mmol/L 28.9 Anion Gap (3-11) mmol/L 8.1 BUN (7-18) mg/dL 21 H Creatinine (0.70-1.30) mg/dL 1.2 Est GFR (CKD-EPI 2020) (mL/min/1.73m2) 61.90 Glucose (74-106) mg/dL 146 H Calcium (8.5-10.1) mg/dL 9.3 Magnesium (1.8-2.4) mg/dL 1.9 Total Bilirubin (0.2-1.0) mg/dL 0.6 AST (15-37) U/L 24 ALT (16-63) U/L 26 Alkaline Phosphatase (46-116) U/L 88 Troponin I (<or=60) ng/L < 50 Total Protein (6.4-8.2) g/dL 7.3 Albumin (3.4-5.0) g/dL 3.9 ECG Data Attestation: I personally reviewed and interpreted this ECG (s) as follows: Interpretation: Rate of 67 sinus, right bundle branch block, left anterior fascicular block, no STEMI. No significant change compared to previous. HPI General Mode of arrival: ambulatory. Date/Time Provider Initiated Documentation: 07/02/22 21:34. Limitations to Documentation: no limitations. Information obtained by: patient. HPI Narrative: Patient is a 77-year-old male with a history of obesity, hypertension, hyperlipidemia, GERD, sleep apnea, amaurosis fugax, chronic kidney disease, anxiety who presents from home with a report of a brief episode of left eye vision loss and dizziness that occurred at home within the last hour. Patient states he was sitting on a couch at home when he developed lightheadedness accompanied with total loss of vision in the left eye that lasted approximately 5 minutes and then resolved. Patient states he felt that his left eye appeared that he was under a welders hat and the vision was completely black. Patient states his symptoms are completely resolved. Patient states his blood pressure usually 120/70 but states today he noted it was 180/70 which is high for him. He had a similar history that occurred 2 years ago for which she was seen in the ED with unremarkable MRI and diagnosed with a likely TIA/amaurosis fugax and started on dual antiplatelet therapy per neurology. Patient states he was followed at the [place] for this and was eventually taken off aspirin and Plavix. Patient states he had a similar episode occur 1 week ago but he did not seek medical care at that time. He denies any other recent changes in his medical history or new medications. He denies any fever, chest pain, difficulty breathing, abdominal pain, extremity weakness or numbness. Related Data Home Medications Medication Instructions Recorded Confirmed albuterol sulfate 90 mcg/actuation 2 inh inhalation PRN PRN 06/26/20 07/02/22 aerosol inhaler budesonide-formoterol HFA 80 1 inh inhalation DAILY PRN 06/26/20 07/02/22 mcg-4.5 mcg/actuation aerosol inhaler (Symbicort) ketoconazole 2 % shampoo 1 applic topical ONCE 08/20/20 07/02/22 rosuvastatin 40 mg tablet 40 mg PO DAILY 08/20/20 07/02/22 polyethylene glycol 3350 17 17 g PO PRN 12/05/20 07/02/22 gram/dose oral powder (Miralax) cholecalciferol (vitamin D3) 50 50 mcg PO DAILY 02/04/22 07/02/22 mcg (2,000 unit) capsule omeprazole 40 mg capsule,delayed 40 mg PRN 07/02/22 release Allergies Allergy/AdvReac Type Severity Reaction Status Date / Time doxycycline Allergy Intermediate hives Verified 07/02/22 21:44 polymyxin B sulfate Allergy Unknown Unverified 07/02/22 21:44 [From Polytrim] trimethoprim [From Polytrim] Allergy Unknown Unverified 07/02/22 21:44 General Stated Complaint: Dizzy/Sync INÉS: 3 Review of Systems All systems reviewed & are unremarkable except as noted in HPI and below Constitutional Constitutional: Reports as per HPI, Denies chills and Denies fever(s) Eyes Eyes: Denies blurry vision and Reports loss of vision ENT Ears, Nose, Mouth, and Throat: Reports dizziness, Denies sore throat and Denies throat swelling Cardiovascular Cardiovascular: Denies chest pain and Denies dyspnea Respiratory Respiratory: Denies cough and Denies dyspnea Gastrointestinal Gastrointestinal: Denies abdominal pain, Denies diarrhea and Denies vomiting Genitourinary Genitourinary: Denies hematuria and Denies dysuria Musculoskeletal Musculoskeletal: Denies back pain and Denies numbness Integumentary/Breasts Skin/Breast: Denies lesions and Denies rash Neurologic Neurologic: Reports dizziness, Denies localized weakness, Reports loss of vision and Denies numbness Allergic/Immunologic Allergic/Immunologic: Denies throat swelling PFSH All Active Problems (Updated 07/03/22 @ 00:36 by Fabienne Quiles DO) TIA (transient ischemic attack) (Acute) Dizziness (Acute) Episode of visual loss of left eye (Acute) Plantar fascial fibromatosis (Acute) Foot pain (Acute) Nail dystrophy (Acute) Chest pain (Acute) Back pain (Acute) Serrated adenoma of colon (Acute ~12/2020) Tubular adenoma (Acute ~12/2020) Screening for colon cancer (Acute) Amaurosis fugax (Acute) Chronic kidney disease (Chronic) Hallucinations (Acute) Keratoderma (Acute) Obesity (Chronic) JAY JAY (obstructive sleep apnea) (Chronic) Tinea pedis (Acute) Trifascicular block (Acute) Umbilical hernia (Acute) Asthma (Chronic) Paranoia (Acute) Anxiety (Chronic) RLQ abdominal pain (Acute) Dysphagia (Acute) Medical History (Updated 07/03/22 @ 00:36 by Fabienne Quiles DO) Bipolar affective disorder GERD (gastroesophageal reflux disease) HTN (hypertension) Hx of hyperlipidemia Lichen simplex, chronic JAY JAY (obstructive sleep apnea) Personal history of colonic polyps Prostate cancer Surgical History (Updated 12/23/20 @ 10:17 by Nisreen Mora) History of cataract surgery History of colonoscopy (~12/2020) History of esophagogastroduodenoscopy (EGD) (~12/2020) History of knee surgery History of prostatectomy Social History Smoking/Tobacco Use Status: Former Tobacco Use Smoking risk assessment performed?: Yes Alcohol Intake: former Drug use: Never Substance use type: does not use Details: quit smoking in 1983 quit alcohol in 1987 Do you feel safe at home: Yes Do you feel safe in your relationship?: Yes Exam Const General: cooperative and no acute distress Orientation: alert, awake and oriented x3 HENMT Head: normal to inspection Ears: hearing grossly normal bilaterally, external ears normal and TM's normal bilaterally Face and sinus: normal facial exam Mouth: oral mucosae normal Eyes General: appearance normal, both eyes and all related structures Pupils: PERRL EOM: EOM intact bilaterally Neck Neck: normal visual inspection and No submandibular swelling Lymphatic: no lymphadenopathy noted Chest Chest: normal inspection of the chest and no tenderness Resp Effort & Inspection: normal respiratory effort and able to speak in complete sentences Auscultation: clear to auscultation bilaterally Cardio Rate: regular rate Rhythm: regular rhythm GI Inspection: normal to inspection Palpation: soft, not firm, not rigid and nontender Auscultation: hypoactive bowel sounds Back/Spine/Pelvis Thoracic/Lumbar Spine: thoracic and lumbar spine normal to inspection Pelvis: no pain with anterior-posterior compression Skin General skin exam: no rashes or lesions noted Neuro General: patient alert, patient awake, patient oriented x3, moves all extremities and no meningeal signs Cognition: normal cognition Speech: speech normal Motor: muscle tone normal throughout, strength 5/5 throughout and no pronator drift Sensory Exam: no sensory deficits noted Extrem General: normal to inspection, full ROM, capillary refill normal, no calf tenderness bilaterally and no edema Psych Appearance: grossly normal Mental Status: mental status grossly normal Speech and Movement: speech and movement normal Affect: normal affect Course Vital Signs Vital signs: Vital Signs Temperature 97.5 F L 07/02/22 21:40 Pulse 74 07/02/22 21:40 Respiratory Rate 16 07/02/22 21:40 Blood Pressure 181/83 H 07/02/22 21:40 Pulse Oximetry 99 07/02/22 21:40 Temperature 97.5 F L 07/02/22 21:40 Temperature Source Temporal Artery Scan 07/02/22 21:40 Pulse 74 07/02/22 21:40 Respiratory Rate 16 07/02/22 21:40 Respiratory Effort Normal 07/02/22 21:40 Blood Pressure 181/83 H 07/02/22 21:40 Blood Pressure Position Sitting 07/02/22 21:40 Pulse Oximetry 99 07/02/22 21:40 Oxygen Delivery Method Room Air 07/02/22 21:40 Oxygen Flow Rate 0 07/02/22 21:40 Pain Level 0 07/02/22 21:40 Lab/Test Results Lab/Test Results: Laboratory Tests Range/Units 07/02/22 22:00 WBC (4.4-10.8) 10^3/uL 5.73 RBC (4.36-5.78) 10^6/uL 4.76 Hgb (13.5-17.5) g/dL 14.0 Hct (40.0-50.0) % 42.0 MCV (80-95) fL 88 MCH (27.0-33.0) pg 29.4 MCHC (32.0-36.0) % 33.3 RDW (11.8-14.1) % 13.2 Plt Count (130-400) 10^3/uL 197 MPV (8.0-11.0) fL 9.6 Immature Gran % 0.5 Neutrophils % 54.5 Lymphocytes % 33.5 Monocytes % 7.3 Eosinophils % 3.7 Basophils % 0.5 Nucleated RBC % (0.0-0.3) % 0.0 Absolute Neutrophils (1.2-6.7) 10^3/uL 3.12 Absolute Lymphocytes (1.2-3.4) 10^3/uL 1.92 Absolute Monocytes (0.1-0.8) 10^3/uL 0.42 Absolute Eosinophils (0.0-0.7) 10^3/uL 0.21 Absolute Basophils (0.0-0.2) 10^3/uL 0.03
[2022-07-02 22:38] LABS: ALT 26 U/L (16-63); AST 24 U/L (15-37); Albumin 3.9 g/dL (3.4-5.0); Alkaline Phosphatase 88 U/L (46-116); Anion Gap 8.1 mmol/L (3-11); BUN 21 mg/dL (7-18); Bilirubin, Total 0.6 mg/dL (0.2-1.0); CO2 28.9 mmol/L (21.0-32.0); CREATININE 1.2 mg/dL (0.70-1.30); Calcium 9.3 mg/dL (8.5-10.1); Chloride 103 mmol/L (98-107); Glucose 146 mg/dL (74-106); Magnesium 1.9 mg/dL (1.8-2.4); Potassium 3.6 mmol/L (3.5-5.1); Sodium 140 mmol/L (136-145); Total Protein 7.3 g/dL (6.4-8.2); Troponin I < 50 ng/L (<or=60)
--- NOTE | 2022-07-02 23:10 | DI.CT_ITS ---
Exam(s) CT BRAIN NECK CTA EXAM: CT BRAIN NECK CTA CLINICAL HISTORY: L eye vision loss, dizziness, r/o acute cva. TECHNIQUE: Imaging Protocol: Axial CT angiography was performed with multi-slice acquisition and mu lti-planar and 3D reconstructions. CONTRAST MATERIAL: Intravenous: Omnipaque 350 Contrast volume:85 mL data in ml COMPARISON: CT CT HEAD WO from 06/26/2020 MR a head and neck and MRI brain 26 June 2020 FINDINGS: CT Head W/O and W contrast: Ventricles and Extra axial spaces: Normal in size and morphology for the patient's age. Hemorrhage: None. Cerebral parenchyma: Normal. Midline shift: None. Brainstem/Cerebellum: Normal. Calvarium: Normal. Visualized Paranasal sinuses/Mastoids: Clear. Soft Tissues: Unremarkable. Enhancement: Normal. CTA Brain W: Internal Carotid Arteries: Petrous: Normal. Cavernous: Normal. Cerebral: Normal. Middle Cerebral Arteries: Right: No aneurysm, occlusion or significant stenosis. Left: No aneurysm, occlusion or significant stenosis. Anterior Cerebral Arteries: Right: No aneurysm, occlusion or significant stenosis. Left: No aneurysm, occlusion or significant stenosis. Posterior cerebral Arteries: Right: No aneurysm, occlusion or significant stenosis. Left: No aneurysm, occlusion or significant stenosis. Vertebral Arteries: Right: No aneurysm, occlusion or significant stenosis. Left: No aneurysm, occlusion or significant stenosis. Basilar Artery: No aneurysm, occlusion or significant stenosis. CTA Neck W: Common Carotid: Right: Mild plaque at bulb. No section, occlusion or significant stenosis. Left: Mild plaque at bulb. No dissection, occlusion or significant stenosis. External Carotid: Right: No dissection, occlusion or significant stenosis. Left: No section, occlusion or significant stenosis. Internal Carotid: Right: No dissection, occlusion or significant stenosis. Left: No dissection, occlusion or significant stenosis. Vertebral Artery: Right: No dissection, occlusion or significant stenosis. Left: No dissection, occlusion or significant stenosis. Lung Apices: Normal. Bones: Degenerative changes in the cervical spine. Soft Tissues: Normal. IMPRESSION: 1. Normal CTA examination of the [place]. 2. Unremarkable CT Head. 3. Minimal plaque at the at the common carotid bulbs. No significant stenosis . RADIATION DOSE DELIVERED: 2,161.03mGy.cm Total DLP DATA REPOSITORY: All CT scans at this facility are submitted to the National Radiology Data Registry (NRDR) Dose Index Registry (DIR) with the [employer] (ACR). RADIATION OPTIMIZATION: All CT scans at this facility use at least one of these dose optimization te chniques: automated exposure control; mA and/or kV adjustment per patient size (includes targeted exa ms where dose is matched to clinical indication); or iterative reconstruction.
[2022-07-02] MEDS: Omnipaque 350 MG/ML 100 ML BTL IJ (23:24)
[2022-07-02] MEDS: Normal Saline - Diluent 50 ML VIAL IV (23:25)
[2022-07-03] VITALS (80 sets, daily range): BP systolic 100–160; BP diastolic 55–90; PULSE 57–91; RESP 13–28; TEMP 36.4–37; O2SAT 94–100
--- NOTE | 2022-07-03 | DI.MRI_ITS ---
Exam(s) MR BRAIN WO EXAM: MR BRAIN WO CLINICAL HISTORY: TIA with left visual field loss. TECHNIQUE: Multiplanar multisequence MRI of the brain was performed. CONTRAST MATERIAL: Noncontrast COMPARISON: MR MR BRAIN WO from 06/26/2020 FINDINGS: VENTRICLES AND EXTRA AXIAL SPACES: Normal in size and morphology for the patient's age. HEMORRHAGE: None. CEREBRAL PARENCHYMA: No focus of restricted diffusion to suggest acute infarct. No space-occupying le justin identified. Few tiny scattered high signal lesions are noted in the white matter consistent wit h minimal microvascular changes. This is within normal limits for the patient's age. MIDLINE SHIFT: None. BRAINSTEM/CEREBELLUM: Normal. VISUALIZED PARANASAL SINUSES/MASTOIDS: Clear. Orbits and pituitary are unremarkable. IMPRESSION: Unremarkable MRI of the brain. DATA REPOSITORY:
--- NOTE | 2022-07-03 00:02 | DI.VRAD_ITS ---
PROCEDURE INFORMATION: Exam: XR Chest Exam date and time: 07/02/2022 11:40 PM Age: 77 years old Clinical indication: Dyspnea TECHNIQUE: Imaging protocol: Radiologic exam of the chest. Views: 2 views. COMPARISON: CR XR CHEST 2V PA LATERAL 06/26/2020 10:03 AM FINDINGS: Lungs: Unremarkable. No consolidation. Pleural spaces: Unremarkable. No pleural effusion. No pneumothorax. Heart/Mediastinum: Unremarkable. No cardiomegaly. Bones/joints: Unremarkable. IMPRESSION: No acute findings. Dictated and Authenticated by: Carlos Alberto Ruiz MD. Ordering:LOLA Loving MD
--- NOTE | 2022-07-03 00:03 | DI.VRAD_ITS ---
PROCEDURE INFORMATION: Exam: CTA Head With Contrast, Arteriography Exam date and time: 07/02/2022 11:24 PM Age: 77 years old Clinical indication: Dizziness and giddiness TECHNIQUE: Imaging protocol: Computed tomographic angiography of the head with contrast. Exam focused on the arteries. 3D rendering (Not supervised by radiologist): MIP and/or 3D reconstructed images were created by the technologist. Contrast material: [id number]; Contrast volume: 85 ml; Contrast route: INTRAVENOUS (IV); COMPARISON: MR ANGIO BRAIN WO 06/26/2020 11:43 AM FINDINGS: ANTERIOR CIRCULATION: Right internal carotid artery: Intracranial segment is patent with no significant stenosis. No aneurysm. Right middle cerebral artery: No occlusion or significant stenosis. No aneurysm. Right anterior cerebral artery: No occlusion or significant stenosis. No aneurysm. Left internal carotid artery: Intracranial segment is patent with no significant stenosis. No aneurysm. Left middle cerebral artery: No occlusion or significant stenosis. No aneurysm. Left anterior cerebral artery: No occlusion or significant stenosis. No aneurysm. POSTERIOR CIRCULATION: Right vertebral artery: No occlusion or significant stenosis. No aneurysm. Left vertebral artery: No occlusion or significant stenosis. No aneurysm. Basilar artery: No occlusion or significant stenosis. No aneurysm. Right posterior cerebral artery: No occlusion or significant stenosis. No aneurysm. Left posterior cerebral artery: No occlusion or significant stenosis. No aneurysm. Brain: No definite mass, mass effect, or midline shift. Cerebral ventricles: No ventriculomegaly. Bones/joints: Unremarkable. No acute fracture. Soft tissues: Unremarkable. IMPRESSION: No large vessel stenosis or occlusion. PROCEDURE INFORMATION: Exam: CTA Neck With Contrast Exam date and time: 07/02/2022 11:24 PM Age: 77 years old Clinical indication: Dizziness and giddiness TECHNIQUE: Imaging protocol: Computed tomographic angiography of the neck with contrast. 3D rendering (Not supervised by radiologist): MIP and/or 3D reconstructed images were created by the technologist. Contrast material: [id number]; Contrast volume: 85 ml; Contrast route: INTRAVENOUS (IV); COMPARISON: MR ANGIO NECK WO 06/26/2020 11:43 AM FINDINGS: Right common carotid artery: No stenosis. No dissection or occlusion. Right internal carotid artery: No stenosis of the extracranial segment. No dissection or occlusion. Right external carotid artery: No occlusion or stenosis of the origin. Left common carotid artery: No stenosis. No dissection or occlusion. Left internal carotid artery: No stenosis of the extracranial segment. No dissection or occlusion. Left external carotid artery: No occlusion or stenosis of the origin. Right vertebral artery: No stenosis. No dissection or occlusion. Left vertebral artery: No stenosis. No dissection or occlusion. Soft tissues: Normal. No significant soft tissue swelling. Bones/joints: No acute fracture. IMPRESSION: No stenosis or occlusion. REFERENCES: NASCET CRITERIA. The degree of stenosis in the cervical segment of the internal carotid artery is based on NASCET criteria. Normal is no stenosis. Mild is less than 50% stenosis. Moderate is 50-69% stenosis. Severe is 70% to 99% stenosis. Total occlusion is no detectable patent lumen. Dictated and Authenticated by: Carlos Alberto Ruiz MD. Ordering:LOLA Loving MD
[2022-07-03 01:03] LABS: Source Nasal/Nares
[2022-07-03 01:34] LABS: COVID-19 PCR Negative (Negative)
[2022-07-03] MEDS: Aspirin 325 MG TAB PO (01:50)
[2022-07-03 01:56] LABS: ESR 11 mm/hr (0-20)
[2022-07-03] MEDS: Clopidogrel 75 MG TAB PO ×2 (01:57→09:47)
--- NOTE | 2022-07-03 06:23 | W.PM.HP.N ---
Date of service: 07/03/22 Time of Service: 06:24 Assessment and Plan Assessment and plan (1) TIA (transient ischemic attack): Start date: 07/03/22 Status: Acute Assessment and plan: This is a 77-year-old gentleman who had a transient event of left visual field amaurosis fugax type symptoms with a curtain dropping into his visual field which happened in the past 2 years ago and 10 days ago. The only other associated symptom was dizziness. He had a negative CTA of the head/neck and is pending MRI of the brain as well as echocardiogram with bubble study. He has slight hyperglycemia and hemoglobin A1c will be checked along with lipid profile with patient on Crestor. Sed rate was negative with patient visual symptoms but neurology did suggest ophthalmology evaluation nonurgently. Patient was loaded with aspirin and initiated back on Plavix with aspirin 81 mg daily and Plavix 75 mg daily to continue at least for 1 month and then single antiplatelet therapy should be continued long-term. The patient symptoms have completely resolved. He does have a heart murmur which she was not aware. PT, OT and SENIOR C DEVELOPER should see the patient and he is a full code. (2) Episode of visual loss of left eye: Start date: 07/03/22 Status: Acute Assessment and plan: Recurrent left visual field loss over the last 2 years with 3 events. The last 2 were within the last 2 weeks. Work-up for TIA as mentioned and will need pathological evaluation updated. Patient needs to work on cardiovascular risk control and is on aspirin and Plavix. (3) HTN (hypertension): Assessment and plan: Patient is on medical therapy at this time and none will be initiated. We will have permissive hypertension if occurs and long-term should consider treatment if systolic above 130. He was on lisinopril in the past. Beta-jesu could be considered. (4) Hyperlipidemia: Status: Chronic Assessment and plan: Recheck lipid profile and continue Crestor high-dose. (5) JAY JAY (obstructive sleep apnea): Assessment and plan: Patient is not on positive pressure treatment at night but sleeps on his side. Consider reevaluation and treatment if appropriate with [facility] History of Present Illness History of Present Illness Chief Complaint: Brief episode of left visual field loss and dizziness Narrative: This is a 77-year-old male patient with a history of amaurosis fugax involving only the left visual field 2 years ago at which time he had a complete evaluation and was started on antiplatelet therapy and according to the patient lisinopril. Both of these [facility] when [facility]. 10 days ago he had a similar episode of slight dizziness with left visual field loss as if a curtain was dropping and then 20 minutes prior to his ED presentation this visit the same thing occurred with associated dizziness. He had no other focal neurological complaints. Neurology was consulted by the ED physician and a sed rate was obtained which was normal with recommendations of the usual stroke work-up with ultrasound of the carotids probably not necessary with CTA being negative. Patient does have a heart murmur by exam (see below) of which he states he is not aware of. He never has right visual field loss and he denies any headache and has stated no motor symptoms. He was slightly hypertensive during his initial visit to the ED but is normotensive and on no antihypertensive presently though he has a diagnosis of JAY JAY and hypertension. He has no history of diabetes but has slight elevation of his glucose with hemoglobin A1c to be checked. He is on Crestor for hyperlipidemia and lipid profile will be checked as well. The patient had no symptoms at the time of my exam and is slightly hard of hearing but otherwise no neurological findings. He denies any recent cardiovascular complaints, no respiratory complaints though he has been fatigued and going to bed earlier. No weight gain. Patient does have sleep apnea but does not wear device and sleeps on his side. The patient is a full code. Review of Systems Narrative: 13 point review of systems otherwise unrevealing or stable. [facility] All Active Problems (Updated 07/03/22 @ 07:53 by Narendra Pena) Hyperlipidemia (Chronic) TIA (transient ischemic attack) (Acute) Dizziness (Acute) Episode of visual loss of left eye (Acute) Plantar fascial fibromatosis (Acute) Foot pain (Acute) Nail dystrophy (Acute) Chest pain (Acute) Back pain (Acute) Serrated adenoma of colon (Acute ~12/2020) Tubular adenoma (Acute ~12/2020) Screening for colon cancer (Acute) Amaurosis fugax (Acute) Chronic kidney disease (Chronic) Hallucinations (Acute) Keratoderma (Acute) Obesity (Chronic) JAY JAY (obstructive sleep apnea) (Chronic) Tinea pedis (Acute) Trifascicular block (Acute) Umbilical hernia (Acute) Asthma (Chronic) Paranoia (Acute) Anxiety (Chronic) RLQ abdominal pain (Acute) Dysphagia (Acute) Medical History (Updated 07/03/22 @ 07:53 by Narendra Pena) Bipolar affective disorder GERD (gastroesophageal reflux disease) HTN (hypertension) Lichen simplex, chronic JAY JAY (obstructive sleep apnea) Personal history of colonic polyps Prostate cancer Surgical History History of cataract surgery History of colonoscopy (~12/2020) History of esophagogastroduodenoscopy (EGD) (~12/2020) History of knee surgery History of prostatectomy Social History Smoking/Tobacco Use Status: Former Tobacco Use Smoking risk assessment performed?: Yes Alcohol Intake: former Drug use: Never Substance use type: does not use Details: quit smoking in 1983 quit alcohol in 1987 Do you feel safe at home: Yes Do you feel safe in your relationship?: Yes Meds Allergies and Home Medications Allergies Allergy/AdvReac Type Severity Reaction Status Date / Time doxycycline Allergy Intermediate hives Verified 07/02/22 21:44 polymyxin B sulfate Allergy Unknown Unverified 07/02/22 21:44 [From Polytrim] trimethoprim [From Polytrim] Allergy Unknown Unverified 07/02/22 21:44 Home Medications Medication Instructions Recorded Confirmed Type albuterol sulfate 90 mcg/actuation 2 inh inhalation PRN PRN 06/26/20 07/02/22 History aerosol inhaler budesonide-formoterol HFA 80 1 inh inhalation DAILY PRN 06/26/20 07/02/22 History mcg-4.5 mcg/actuation aerosol inhaler (Symbicort) ketoconazole 2 % shampoo 1 applic topical ONCE 08/20/20 07/02/22 History rosuvastatin 40 mg tablet 40 mg PO DAILY 08/20/20 07/02/22 History polyethylene glycol 3350 17 17 g PO PRN 12/05/20 07/02/22 History gram/dose oral powder (Miralax) cholecalciferol (vitamin D3) 50 50 mcg PO DAILY 02/04/22 07/02/22 History mcg (2,000 unit) capsule omeprazole 40 mg capsule,delayed 40 mg PRN 07/02/22 History release Exam Narrative Exam Narrative: General: Patient appears appropriate for age, moderately obese, alert and oriented x3 but very hard of hearing. He is in no acute distress. HEENT: Normocephalic, eyes with pupils equal and react to light symmetrically, extraocular movement tact and sclera anicteric. Oropharynx with moist mucosa and fair dentition. Neck: Supple without JVD and no auscultated carotid bruits. Back: Stooped posture without CVA tenderness. Skin: Moist, normal color and warm. Actinic changes over sun exposed areas otherwise no suspicious lesions grossly. Lungs: Clear to auscultation percussion. Bronchovesicular breath sounds diffusely. No expiratory wheeze or focalizing rales or rhonchi. Heart: Regular rate and rhythm with 3/6 to 4/6, harsh systolic murmur left lower border. No gallops or rubs. Abdomen: Obese contour, soft and nontender to palpation with no palpable hepatosplenomegaly. Genitalia/rectal: Exam deferred. Extremities: With trace pitting edema over ankles, no clubbing or cyanosis. Joints have fair range of motion. Neuro: Cranial nerves II through XII grossly intact, grossly visual lopez are intact. Patient is hard of hearing. No focalizing motor deficits. No tremor. DTRs physiologic and symmetrical. No Babinski's. Psych: Normal affect and mood. No abnormal thought processes. Remote and recent memory grossly intact. Results Imaging Imaging Studies: Exam: CTA Head With Contrast, Arteriography Exam date and time: 07/02/2022 11:24 PM Age: 77 years old Clinical indication: Dizziness and giddiness TECHNIQUE: Imaging protocol: Computed tomographic angiography of the head with contrast. Exam focused on the arteries. 3D rendering (Not supervised by radiologist): MIP and/or 3D reconstructed images were created by the technologist. Contrast material: [id number]; Contrast volume: 85 ml; Contrast route: INTRAVENOUS (IV);? COMPARISON: MR ANGIO BRAIN WO 06/26/2020 11:43 AM FINDINGS: ANTERIOR CIRCULATION: Right internal carotid artery: Intracranial segment is patent with no significant stenosis. No aneurysm. Right middle cerebral artery: No occlusion or significant stenosis. No aneurysm.? Right anterior cerebral artery: No occlusion or significant stenosis. No aneurysm.? Left internal carotid artery: Intracranial segment is patent with no significant stenosis. No aneurysm. Left middle cerebral artery: No occlusion or significant stenosis. No aneurysm. ? Left anterior cerebral artery: No occlusion or significant stenosis. No aneurysm.? POSTERIOR CIRCULATION: Right vertebral artery: No occlusion or significant stenosis. No aneurysm.? Left vertebral artery: No occlusion or significant stenosis. No aneurysm.? Basilar artery: No occlusion or significant stenosis. No aneurysm. Right posterior cerebral artery: No occlusion or significant stenosis. No aneurysm.? Left posterior cerebral artery: No occlusion or significant stenosis. No aneurysm.? Brain: No definite mass, mass effect, or midline shift. Cerebral ventricles: No ventriculomegaly. Bones/joints: Unremarkable. No acute fracture. Soft tissues: Unremarkable. IMPRESSION: No large vessel stenosis or occlusion. PROCEDURE INFORMATION: Exam: CTA Neck With Contrast Exam date and time: 07/02/2022 11:24 PM Age: 77 years old Clinical indication: Dizziness and giddiness TECHNIQUE: Imaging protocol: Computed tomographic angiography of the neck with contrast. 3D rendering (Not supervised by radiologist): MIP and/or 3D reconstructed images were created by the technologist. Contrast material: [id number]; Contrast volume: 85 ml; Contrast route: INTRAVENOUS (IV);? COMPARISON: MR ANGIO NECK WO 06/26/2020 11:43 AM FINDINGS: Right common carotid artery: No stenosis. No dissection or occlusion. Right internal carotid artery: No stenosis of the extracranial segment. No dissection or occlusion. Right external carotid artery: No occlusion or stenosis of the origin.? Left common carotid artery: No stenosis. No dissection or occlusion. Left internal carotid artery: No stenosis of the extracranial segment. No dissection or occlusion. Left external carotid artery: No occlusion or stenosis of the origin.? Right vertebral artery: No stenosis. No dissection or occlusion. Left vertebral artery: No stenosis. No dissection or occlusion. Soft tissues: Normal. No significant soft tissue swelling. Bones/joints: No acute fracture. IMPRESSION: No stenosis or occlusion. Exam: XR Chest Exam date and time: 07/02/2022 11:40 PM Age: 77 years old Clinical indication: Dyspnea TECHNIQUE: Imaging protocol: Radiologic exam of the chest. Views: 2 views. COMPARISON: CR XR CHEST 2V PA LATERAL 06/26/2020 10:03 AM FINDINGS: Lungs: Unremarkable. No consolidation. Pleural spaces: Unremarkable. No pleural effusion. No pneumothorax. Heart/Mediastinum: Unremarkable. No cardiomegaly. Bones/joints: Unremarkable. IMPRESSION: No acute findings. Labs 07/02/22 22:00 07/02/22 22:00 Labs: Laboratory Results - last 24 hr 07/02/22 07/02/22 07/02/22 00:00 22:00 22:00 WBC 5.73 RBC 4.76 Hgb 14.0 Hct 42.0 MCV 88 MCH 29.4 MCHC 33.3 RDW 13.2 Plt Count 197 MPV 9.6 Immature Gran % 0.5 Neutrophils % 54.5 Lymphocytes % 33.5 Monocytes % 7.3 Eosinophils % 3.7 Basophils % 0.5 Nucleated RBC % 0.0 Absolute Neutrophils 3.12 Absolute Lymphocytes 1.92 Absolute Monocytes 0.42 Absolute Eosinophils 0.21 Absolute Basophils 0.03 ESR 11 Sodium 140 Potassium 3.6 Chloride 103 Carbon Dioxide 28.9 Anion Gap 8.1 BUN 21 H Creatinine 1.2 Est GFR (CKD-EPI 2020) 61.90 Glucose 146 H Calcium 9.3 Magnesium 1.9 Total Bilirubin 0.6 AST 24 ALT 26 Alkaline Phosphatase 88 Troponin I < 50 Total Protein 7.3 Albumin 3.9 COVID-19 Source SARS-CoV-2 (PCR) 07/03/22 00:45 WBC RBC Hgb Hct MCV MCH MCHC RDW Plt Count MPV Immature Gran % Neutrophils % Lymphocytes % Monocytes % Eosinophils % Basophils % Nucleated RBC % Absolute Neutrophils Absolute Lymphocytes Absolute Monocytes Absolute Eosinophils Absolute Basophils ESR Sodium Potassium Chloride Carbon Dioxide Anion Gap BUN Creatinine Est GFR (CKD-EPI 2020) Glucose Calcium Magnesium Total Bilirubin AST ALT Alkaline Phosphatase Troponin I Total Protein Albumin COVID-19 Source Nasal/Nares SARS-CoV-2 (PCR) Negative Last Vital Signs Temp 37.0 C 07/03/22 05:50 Pulse 60 07/03/22 02:30 Resp 16 07/03/22 02:10 BP 115/62 07/03/22 02:13 Pulse Ox 96 07/03/22 02:10 Time Spent Time spent with Patient: >75 minutes Time was spent: preparing to see the patient(eg.review tests), obtaining and/or reviewing separately otained hiistory, ordering medications,tests, procedures, referring, communicating with other health healthcare corporate account director, indepentently interpreting results and care coordination
[2022-07-03 07:56] LABS: Lab Add On Test DONE
[2022-07-03 08:16] LABS: Hemoglobin A1C 5.5 % (<5.7)
[2022-07-03 08:29] LABS: Calculated LDL 55 mg/dL (<100); Cholesterol 118 mg/dL (<200); HDL Cholesterol 45 mg/dL (40-60); Triglyceride 93 mg/dL (<150)
[2022-07-03] MEDS: Enoxaparin 40 MG/0.4 ML SYR SC (09:44)
[2022-07-03] MEDS: Normal Saline Flush 10 ML SYR IVP (09:46)
[2022-07-03] MEDS: Cholecalciferol (Vitamin D3) 1,000 UNIT TAB 2000 UNITS PO (09:47)
[2022-07-03] MEDS: Pantoprazole 40 MG TABCR PO (09:53)
[2022-07-03] MEDS: Aspirin 81 MG CHEW PO (09:56)
--- NOTE | 2022-07-03 10:04 | RESPIRATORY ---
RT spoke with patient concerning history of JAY JAY in his chart. Patient stated he has a PAP device and used it at one point but currently does not. He lost 40lbs and had two sleep studies done which showed he no longer needs to use the device [facility] and patient stated they know he no longer uses it. RT asked is he uses O2 for the JAY JAY and patient stated no.
--- NOTE | 2022-07-03 11:15 | INITIAL_ITS ---
- If Service Date Differs Date of service: 07/03/22 Time of Service: 11:16 Care Management Initial Assess REASON FOR HOSPITALIZATION:: TIA PAST MEDICAL HISTORY/PAST SURGICAL HISTORY:: All Active Problems. Hyperlipidemia (Chronic). TIA (transient ischemic attack) (Acute). Dizziness (Acute). Episode of visual loss of left eye (Acute). Plantar fascial fibromatosis (Acute). Foot pain (Acute). Nail dystrophy (Acute). Chest pain (Acute). Back pain (Acute). Serrated adenoma of colon (Acute ~12/2020). Tubular adenoma (Acute ~12/2020). Screening for colon cancer (Acute). Amaurosis fugax (Acute). Chronic kidney disease (Chronic). Hallucinations (Acute). Keratoderma (Acute). Obesity (Chronic). JAY JAY (obstructive sleep apnea) (Chronic). Tinea pedis (Acute). Trifascicular block (Acute). Umbilical hernia (Acute). Asthma (Chronic). Paranoia (Acute). Anxiety (Chronic). RLQ abdominal pain (Acute). Dysphagia (Acute). Medical History. Bipolar affective disorder. GERD (gastroesophageal reflux disease). HTN (hypertension). Lichen simplex, chronic. JAY JAY (obstructive sleep apnea). Personal history of colonic polyps. Prostate cancer. Surgical History. History of cataract surgery. History of colonoscopy (~12/2020). History of esophagogastroduodenoscopy (EGD) (~12/2020). History of knee surgery. History of prostatectomy PREVIOUS FUNCTIONAL STATUS/SOCIAL/FAMILY SUPPORTS:: Rodrigo lives in [facility]. His daughter, Rosalba, lives nearby. He is independent at baseline. CURRENT FUNCTIONAL STATUS:: Rodrigo was lying in bed when CM met with him. He reported that he had an MRI around noon, and was expecting results soon. He stated that he thought that he would be discharging today, after he hears his MRI results. went to meet with him as soon as CM left the room. CM will continue to follow. ADVANCE DIRECTIVES:: Not on file. Has patient been provided with info about the portal/API?: Yes Did the patient sign up for the portal?: Yes (active) CODE STATUS:: Full Code INSURANCE COVERAGE / FINANCIAL ISSUES:: BS [employer]/ [facility] CURRENT HOME/COMMUNITY SERVICES/EQUIPMENT:: No known services or equipment. PRIMARY CARE PHYSICIAN:: [place] POTENTIAL DISCHARGE NEEDS:: Evaluations for further needs, follow up appointments. PATIENT/FAMILY EDUCATION NEEDS:: Review discharge instructions and limitations, discussion of self care needs including ask me three. ANTICIPATED BARRIERS TO DISCHARGE:: None identified. TRANSPORTATION:: Via private vehicle by family. PLAN:: Anticipate Rodrigo will return home once medically cleared. His daughter will likely drive him home via private vehicle. He will follow up with his PCP and discharge plan of care. CM will continue to follow.
--- NOTE | 2022-07-03 14:42 | W.PM.DS.N ---
Date of service: 07/03/22 Time of Service: 14:43 DS: Diagnosis Discharge Diagnosis (1) TIA (transient ischemic attack): Status: Suspected Asessment and Plan: Patient had no other focal signs of stroke such as facial weakness or paresthesias no limb paresthesias or paraparesis and no dysarthric speech. Symptoms seem to have been confined to his left eye and were transient. Nevertheless he will be discharged home on dual antiplatelet therapy with close follow-up with neurology. MRI scan did not show a completed stroke. (2) Episode of visual loss of left eye: Status: Acute Asessment and Plan: Patient symptoms sound like amaurosis fugax as he had vision changes only in the left eye it did not involve his right eye. I recommend follow-up with both neurology locally as well as with his border measurer and cutter. I recommend continued dual antiplatelet therapy for 30 days and then remain on aspirin 81 mg thereafter. His border measurer and cutter and neurologist can modify his antiplatelet therapy. (3) HTN (hypertension): Asessment and Plan: Previously been diagnosed with hypertension had been on lisinopril by his PCP through the [facility] stop the lisinopril. I asked him what his blood pressures run at home he says sometimes they run up as high as 180 systolic. I asked him how many days a week is his systolic blood pressure below 140 he says about 3 days a week. Here in the hospital his blood pressures have varied but generally are in the 110s to 120s. I am not discharging him home on any blood pressure agents. We only had 1 elevated blood pressure reading of 160/90 during the hospitalization the rest of his blood pressures been well controlled. (4) Hyperlipidemia: Status: Chronic Asessment and Plan: Patient is chronically on rosuvastatin. He is remain on current dose of 40 mg daily and follow-up with his provider regarding adjusting dosages based on his lipid profile. Of note we did a fasting lipid profile and his total cholesterol is down to 118 with an LDL of 55 and HDL 45 triglycerides of 93. Therefore patient is currently meeting goal standards and I did not change his rosuvastatin dose. (5) JAY JAY (obstructive sleep apnea): Asessment and Plan: Patient is to see has a CPAP machine but is not using it. He says his provider said that he no longer needs it. He apparently lost 40 pounds of weight and went from 280 pounds down to 240 pounds and allegedly had a follow-up study was told he no longer needs his CPAP. Discharge Plan Disposition Patient Disposition: Home Condition: Good Discharge Details Reason For Visit: TIA Admit Date/Time: 07/03/22 00:33 Admit Provider: Narendra Pena Attending Provider: Narendra Pena Primary Care Provider: Unknown,Unknown Hospital Course Hospital Course: [id number] male with a history of amaurosis fugax involving left back 2 years ago who had been started on aspirin but states that [facility]. He has not currently been taking any aspirin he also has a history of hyperlipidemia obstructive sleep apnea as well as hypertension. Previously been on lisinopril but again his [facility] provider had stopped lisin[facility]ril. 10 days ago he had an episode of slight dizziness associated with acute left visual field loss is at actually involved only the left on right not the left temporal field. He is it was a feeling like a shade was pulled down over his left eye that was transient went away within 10 minutes. Last night's episode that brought him in with similar which she felt dizzy but no headache and he had acute visual loss in left eye not total loss of vision but feeling like he was looking through a [employer] goggles in which the shade was being pulled out of his left eye. When he looked out of his right eye he was able to see fine. This lasted about 6 minutes. Scared him enough to present to the emergency department. There was no associated dysarthric speech no difficulty swallowing no facial numbness or tingling being and no limb weakness or paresthesias. Patient underwent a diagnostic work-up that was started in the emergency department included CT of the head neck. CT of the head showed no aneurysms and no significant stenosis or occlusions. CTA of the neck showed mild plaque at both carotid bulbs there is no hemodynamically significant stenosis or occlusion and no dissection. CT of the head was unremarkable for any strokes or hemorrhages. Chest x-ray was performed on admission showed no acute abnormalities. He was hospitalized overnight remained in sinus rhythm. Echocardiogram was ordered but not able to be obtained as her embossing calender operator was off for the day. MRI scan of the brain was performed and showed no abnormalities. Patient was given a loading dose of aspirin 325 mg and then started on a daily dose of aspirin 81 mg daily. He was kept on his usual dose of rosuvastatin 40 mg every afternoon. Patient was given a dose of clopidogrel 75 mg in the ED but not given a loading dose. He was maintained on daily dose of clopidogrel 75 mg. At the time of discharge patient was totally asymptomatic had no further recurrence of his amaurosis fugax symptoms. Patient was advised to follow-up with his border measurer and cutter as well as his neurologist through the [facility]. I recommend outpatient echocardiogram he indicated to me that he had 1 less than a month ago through the [facility]. I also recommended a cardiac event recorder however he said he had a Zio patch performed and was referred to an network desktop support specialist through the [facility]. I have recommended follow-up with neurology he indicated desire to follow-up locally and we will set him up with Dr. Johanna Tapia to be seen in the next couple weeks. Home Meds and New Rx's Prescriptions: New clopidogrel [Plavix] 75 mg tablet 75 mg PO DAILY Qty: 30 0RF aspirin 81 mg tablet,delayed release (DR/EC) 81 mg PO DAILY Qty: 90 0RF Continued polyethylene glycol 3350 [Miralax] 17 gram/dose powder 17 g PO PRN cholecalciferol (vitamin D3) 50 mcg (2,000 unit) capsule 50 mcg PO DAILY ketoconazole 2 % shampoo 1 applic topical ONCE rosuvastatin 40 mg tablet 40 mg PO DAILY budesonide-formoterol [Symbicort] 80-4.5 mcg/actuation HFA aerosol inhaler 1 inh INHALATION DAILY PRN albuterol sulfate 90 mcg/actuation Hfa Aerosol Inhaler 2 inh INHALATION PRN PRN omeprazole 40 mg capsule,delayed release(DR/EC) 40 mg PRN Discharge Instructions Instructions: Clopidogrel (By mouth), Transient Ischemic Attack (DC) Referrals: Monique Arndt [NURSE PRACTITIONER] - ([facility]) Activity:: Activity as Tolerated Equipment/Supplies:: No Equipment Needed Diet:: Normal Diet Discharge Orders Discharge Orders: Discharge Order (Routine); Ordered 07/03/22 Ordered By: Marciano Mayo DS: Summary Time Spent with Patient providing and/or coordinating discharge services: Greater than 30 minutes Specific discharge activities: Interview/exam of patient; review of discharge instructions, completion of prescriptions/discharge instructions; discussion w/ nursing and CM; documentation of hospital visit Status at Discharge Functional status at discharge: independent ambulation Overall status at discharge: patient is back to baseline Mental Status: mental status grossly normal Speech and Movement: speech and movement normal Mood: congruent mood Affect: normal affect Exam Narrative Exam Narrative: Obese male lying in bed in semirecumbent position who is alert and oriented person place time circumstance. HEENT balding male full extraocular motion intact, visual lopez are grossly intact, patient was able to read without using his glasses. He was able to read the smallest line on his MRI report Neck is supple no JVD normal carotid pulses no bruits Lungs clear to auscultation Heart regular rate and rhythm no appreciable murmur rub or gallop. Abdomen is obese soft and nontender Lower extremities without peripheral cyanosis or edema. Neuro exam no focal cranial nerve deficits no focal motor or sensory deficits. Psych Mental Status: mental status grossly normal Speech and Movement: speech and movement normal Mood: congruent mood Affect: normal affect DS: Data Vitals/I&O Vitals and I&O: Vital Signs Temperature 36.5 C 07/03/22 09:34 Temperature Source Temporal Artery Scan 07/03/22 09:34 Pulse 60 07/03/22 02:30 Pulse Rhythm Regular 07/03/22 02:05 Pulse 61 07/03/22 02:00 Respiratory Rate 17 07/03/22 09:34 Respiratory Effort Normal, Non-Labored 07/03/22 09:34 Respiratory Depth Normal 07/03/22 09:34 Respiratory Pattern Normal 07/03/22 09:34 Blood Pressure 115/62 07/03/22 02:13 Blood Pressure Mean 76 07/03/22 02:13 Blood Pressure Position Supine 07/03/22 09:34 Pulse Oximetry 96 07/03/22 09:34 Oxygen Delivery Method Room Air 07/03/22 09:34 Oxygen Flow Rate 0 07/03/22 09:34 Pain Level 0 07/03/22 09:34 Comment RN notified 07/03/22 05:50 Intake & Output 07/02/22 07/03/22 07/03/22 23:59 11:59 23:59 Intake Total 490 / 490 Output Total 1350 / 1350 Balance -860 / -860 Weight 108.409 kg 102.7 kg Intake: IV 250 / 250 Oral 240 / 240 Output: Urine 1350 / 1350 Other: Urine Color Yellow Urine Appearance Clear Urine Odor None Voiding Methods Urinal Data Completed and Pending Labs on day of discharge: Labs from last 24 hours 07/03/22 07/02/22 07/02/22 00:45 22:00 22:00 WBC RBC Hgb Hct MCV MCH MCHC RDW Plt Count MPV Immature Gran % Neutrophils % Lymphocytes % Monocytes % Eosinophils % Basophils % Nucleated RBC % Absolute Neutrophils Absolute Lymphocytes Absolute Monocytes Absolute Eosinophils Absolute Basophils ESR Sodium Potassium Chloride Carbon Dioxide Anion Gap BUN Creatinine Est GFR (CKD-EPI 2020) Glucose Hemoglobin A1c 5.5 Calcium Magnesium Total Bilirubin AST ALT Alkaline Phosphatase Troponin I Total Protein Albumin Triglycerides 93 Total Cholesterol 118 LDL Cholesterol, Calc 55 HDL Cholesterol 45 COVID-19 Source Nasal/Nares SARS-CoV-2 (PCR) Negative Add-On Test Request 07/02/22 07/02/22 07/02/22 22:00 22:00 22:00 WBC 5.73 RBC 4.76 Hgb 14.0 Hct 42.0 MCV 88 MCH 29.4 MCHC 33.3 RDW 13.2 Plt Count 197 MPV 9.6 Immature Gran % 0.5 Neutrophils % 54.5 Lymphocytes % 33.5 Monocytes % 7.3 Eosinophils % 3.7 Basophils % 0.5 Nucleated RBC % 0.0 Absolute Neutrophils 3.12 Absolute Lymphocytes 1.92 Absolute Monocytes 0.42 Absolute Eosinophils 0.21 Absolute Basophils 0.03 ESR Sodium 140 Potassium 3.6 Chloride 103 Carbon Dioxide 28.9 Anion Gap 8.1 BUN 21 H Creatinine 1.2 Est GFR (CKD-EPI 2020) 61.90 Glucose 146 H Hemoglobin A1c Calcium 9.3 Magnesium 1.9 Total Bilirubin 0.6 AST 24 ALT 26 Alkaline Phosphatase 88 Troponin I < 50 Total Protein 7.3 Albumin 3.9 Triglycerides Total Cholesterol LDL Cholesterol, Calc HDL Cholesterol COVID-19 Source SARS-CoV-2 (PCR) Add-On Test Request DONE 07/02/22 00:00 WBC RBC Hgb Hct MCV MCH MCHC RDW Plt Count MPV Immature Gran % Neutrophils % Lymphocytes % Monocytes % Eosinophils % Basophils % Nucleated RBC % Absolute Neutrophils Absolute Lymphocytes Absolute Monocytes Absolute Eosinophils Absolute Basophils ESR 11 Sodium Potassium Chloride Carbon Dioxide Anion Gap BUN Creatinine Est GFR (CKD-EPI 2020) Glucose Hemoglobin A1c Calcium Magnesium Total Bilirubin AST ALT Alkaline Phosphatase Troponin I Total Protein Albumin Triglycerides Total Cholesterol LDL Cholesterol, Calc HDL Cholesterol COVID-19 Source SARS-CoV-2 (PCR) Add-On Test Request [facility] All Active Problems (Updated 07/03/22 @ 14:59 by Marciano Mayo MD) Hyperlipidemia (Chronic) Dizziness (Acute) Episode of visual loss of left eye (Acute) Plantar fascial fibromatosis (Acute) Foot pain (Acute) Nail dystrophy (Acute) Chest pain (Acute) Back pain (Acute) Serrated adenoma of colon (Acute ~12/2020) Tubular adenoma (Acute ~12/2020) Screening for colon cancer (Acute) Amaurosis fugax (Acute) Chronic kidney disease (Chronic) Hallucinations (Acute) Keratoderma (Acute) Obesity (Chronic) JAY JAY (obstructive sleep apnea) (Chronic) Tinea pedis (Acute) Trifascicular block (Acute) Umbilical hernia (Acute) Asthma (Chronic) Paranoia (Acute) Anxiety (Chronic) RLQ abdominal pain (Acute) Dysphagia (Acute) Medical History Bipolar affective disorder GERD (gastroesophageal reflux disease) HTN (hypertension) Lichen simplex, chronic JAY JAY (obstructive sleep apnea) Personal history of colonic polyps Prostate cancer Surgical History History of cataract surgery History of colonoscopy (~12/2020) History of esophagogastroduodenoscopy (EGD) (~12/2020) History of knee surgery History of prostatectomy Social History Smoking/Tobacco Use Status: Former Tobacco Use Smoking risk assessment performed?: Yes Alcohol Intake: former Drug use: Never Substance use type: does not use Details: quit smoking in 1983 quit alcohol in 1987 Do you feel safe at home: Yes Do you feel safe in your relationship?: Yes Time Spent with Patient Time Spent with Patient: <45 minutes Time was spent: preparing to see the patient(eg.review tests), obtaining and/or reviewing separately otained hiistory, ordering medications,tests, procedures, indepentently interpreting results, counseling the patient and care coordination
--- NOTE | 2022-07-03 16:29 | PT.INNT ---
PT Notes Visit Reasons: TIA (cardiology) Patient discharged at 16:00 at baseline mobility level. No skilled services provided.
--- NOTE | 2022-07-03 16:39 | PDOC.CMDIS ---
- If Service Date Differs Date of service: 07/03/22 Time of Service: 16:39 LACE Index Scoring Tool - Questions: Length of Stay (in days): 1 Acuity (Admit via E.D.?): Yes Comorbidities: Any Tumor E.D. Visits: 1 - Answers: Total Score: 7 Risk of Readmission: Low Risk Care Management Discharge Reason for Hospitalization: TIA Discharge Plan: Rodrigo will return home today with no new services. He will drive himself home, as his car is in the parking lot. He will follow up with his PCP and discharge plan of care. He is happy to be going home. Patient/Family Education Needs: Review discharge instructions and limitations, discussion of self care needs including ask me three.
== END 2022-07-03 16:10 | disposition home or self-care (01) ==
LOC: ER 07-03 00:36 → ICU 07-03 02:03
PROVIDERS: Internal Medicine; Admitting Provider Family Medicine; Emergency Provider Physician Assistant; Visit Provider Family Medicine
DX: G45.9 Transient cerebral ischemic attack, unspecified (principal); G45.3 Amaurosis fugax; I10 Essential (primary) hypertension; E78.5 Hyperlipidemia, unspecified; G47.33 Obstructive sleep apnea (adult) (pediatric); I45.2 Bifascicular block; Z79.899 Other long term (current) drug therapy; E66.9 Obesity, unspecified; Z68.32 Body mass index [BMI] 32.0-32.9, adult; I12.9 Hypertensive chronic kidney disease with stage 1 through stage 4 chronic kidney disease, or unspecified chronic kidney disease; N18.9 Chronic kidney disease, unspecified; J45.909 Unspecified asthma, uncomplicated; R42 Dizziness and giddiness; F31.9 Bipolar disorder, unspecified; K21.9 Gastro-esophageal reflux disease without esophagitis; Z85.46 Personal history of malignant neoplasm of prostate; Z20.822 Contact with and (suspected) exposure to COVID-19
CPT/HCPCS: 36415; 70496; 70498; 80053; 80061; 85652; 87635; 93005; 96360; 96361; 96372; 99285; J1650; 70551; 71046; 83036; 83735; 84484; 85025; 93010; 99223; G0378; J3490

== ENCOUNTER 2022-07-07 13:17 | Emergency (ER) | payer OTHER, SELFPAY ==
[2022-07-07] VITALS (11 sets, daily range): BP systolic 148–163; BP diastolic 70–127; PULSE 61–70; RESP 20–29; TEMP 36.8; O2SAT 98–100
--- NOTE | 2022-07-07 13:15 | RT.EKG_ITS ---
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 No ST segment e levations. Mild ST segment depression in lead II similar to prior. Prior dated earlier this month. No acute injury pattern.
--- NOTE | 2022-07-07 13:27 | ED.GENADUL_ITS ---
Discharge Plan Disposition Patient Disposition: Home Discharge Details Clinical Impression: Dizziness Primary Care Provider: Monique Arndt ED Provider: Phuc Peguero Home Meds and New Rx's Prescriptions: New meclizine 25 mg tablet 25 mg PO BID PRNQty: 7 0RF Continued polyethylene glycol 3350 [Miralax] 17 gram/dose powder 17 g PO PRN cholecalciferol (vitamin D3) 50 mcg (2,000 unit) capsule 50 mcg PO DAILY ketoconazole 2 % shampoo 1 applic topical ONCE rosuvastatin 40 mg tablet 40 mg PO DAILY budesonide-formoterol [Symbicort] 80-4.5 mcg/actuation HFA aerosol inhaler 1 inh INHALATION DAILY PRN albuterol sulfate 90 mcg/actuation Hfa Aerosol Inhaler 2 inh INHALATION PRN PRN clopidogrel [Plavix] 75 mg tablet 75 mg PO DAILY Qty: 30 0RF aspirin 81 mg tablet,delayed release (DR/EC) 81 mg PO DAILY Qty: 90 0RF Discharge Instructions Instructions: Dizziness (ED) Additional Instructions: Please read all of the information that accompanies these instructions. You were seen in the emergency department for your dizziness. Your blood work shows that you may be slightly dehydrated. Please drink at least 1 glass of water every 2 hours. Please return to the emergency department if you do not urinate at least once every 8 hours while awake. Please schedule an appointment with your primary care provider later this week. Please return to the emergency department if you develop chest pain or any weakness. Discharge Data Discharge Date/Time-TO BE ENTERED AT DEPARTURE: 07/07/22 15:26 Medical Decision Making This is an obese 77-year-old male arrives emergency department in the setting of palpitations with chest fluttering concerning for the possibility of arrhythmias. His ECG shows a trifascicular block based on his history of JAY JAY and obesity it is certainly possible that he has cardiac disease complicated by conduction abnormalities. He reportedly had been advised to have a mapping study with the EP which he declined. He did not syncopized so I do not feel that he requires hospitalization for telemetry. He unfortunately could not have an echocardiogram performed during his recent hospitalization as a vice president of consulting services was reportedly not available. [facility]. He was recently hospitalized with a TIA. He is having no dizziness at the moment. We will attempt treatment with meclizine. No recent chiropractic manipulation to suggest increased risk for dissection. No chest pain to suggest aortic dissection. No pain or proportion to suggest necrotizing soft tissue infection. No neck stiffness to suggest meningitis. Not altered to suggest encephalitis. It certainly possible that he could have had an ischemic event. His ECG is nonischemic. Will obtain a single troponin based on duration of his symptoms for several days. Has not been nauseous nor vomiting but based on his age will obtain basic labs to assess for any acute electrolyte abnormalities. He lives alone and ambulates without assistance at baseline so if his labs and chest x-ray are reassuring in the ED he will require an ambulatory trial and a p.o. trial in the ED prior to radha dial. 2:26pm I spoke to Moni from care management who will help patient arrange for outpatient PCP follow up local. She will help arrange follow-up for him with a psychiatrist or counselor. 3:07 PM Patient ambulated with a cane in the ED. He will be discharged now with an empiric trial of expectant outpatient management with follow-up. He also has return indications. Repeat blood pressure at discharge showed persistent hypertension. He recently had reassuring blood pressures in the hospital so well defer any changes in blood pressure medications to his primary care. Given that he reported anxiety this could certainly be a cause of his elevated blood pressure. Chronic conditions affecting the care of the patient: Elevated BMI and hyperlipidemia History obtained from an outside historian: N/A External record review: N/A Diagnostic interpretations performed by me: Per my independent interpretation chest x-ray shows: No acute cardiopulmonary abnormalities Per my independent interpretation EKG shows: No ischemia, please see my report Medications: Meclizine Social determinants of health affecting disposition: Lives alone Management discussed with: Care management from Moni Treatment/interventions considered: None Response to therapies provided: [place] improved status post meclizine HPI General Date/Time Provider Initiated Documentation: 07/07/22 13:26 . HPI Narrative: This this is a 77-year-old male with history of JAY JAY hyperlipidemia and CKD who lives alone arriving now via EMS in the setting of dizziness and palpitations. He was diagnosed with a TIA last week and is on clopidogrel and aspirin. He was hospitalized last week and had a negative MRI. Without getting dizzy he reports that he was dizzy at home and attempted to go to the store and he felt that he could not get up. At baseline he ambulates without assistance. He reports that he had a cane but given to his brother. He says that he has had 3- 4 episodes of dizziness per day for the several days. He says that these episodes last for 15 to 20 minutes. He checked his blood pressure at home and his blood pressure was slightly elevated. He has not taken any falls. He denies shortness of breath nausea and vomiting. Related Data Home Medications Medication Instructions Recorded Confirmed albuterol sulfate 90 mcg/actuation 2 inh inhalation PRN PRN 06/26/20 07/07/22 aerosol inhaler budesonide-formoterol HFA 80 1 inh inhalation DAILY PRN 06/26/20 07/07/22 mcg-4.5 mcg/actuation aerosol inhaler (Symbicort) ketoconazole 2 % shampoo 1 applic topical ONCE 08/20/20 07/07/22 rosuvastatin 40 mg tablet 40 mg PO DAILY 08/20/20 07/07/22 polyethylene glycol 3350 17 17 g PO PRN 12/05/20 07/07/22 gram/dose oral powder (Miralax) cholecalciferol (vitamin D3) 50 50 mcg PO DAILY 02/04/22 07/07/22 mcg (2,000 unit) capsule aspirin 81 mg tablet,delayed 81 mg PO DAILY #90 tabs 07/03/22 07/07/22 release clopidogrel 75 mg tablet (Plavix) 75 mg PO DAILY #30 tabs 07/03/22 07/07/22 meclizine 25 mg tablet 25 mg PO BID PRN #7 tabs 07/07/22 Previous Rx's Medication Instructions Recorded aspirin 81 mg tablet,delayed 81 mg PO DAILY #90 tabs 07/03/22 release clopidogrel 75 mg tablet (Plavix) 75 mg PO DAILY #30 tabs 07/03/22 meclizine 25 mg tablet 25 mg PO BID PRN #7 tabs 07/07/22 Allergies Allergy/AdvReac Type Severity Reaction Status Date / Time doxycycline Allergy Intermediate hives Verified 07/07/22 13:27 polymyxin B sulfate Allergy Unknown Unverified 07/07/22 13:27 [From Polytrim] trimethoprim [From Polytrim] Allergy Unknown Unverified 07/07/22 13:27 General Stated Complaint: Palpitatns INÉS: 3 PFSH All Active Problems (Updated 07/07/22 @ 15:05 by Phuc Peguero MD) Dizziness (Acute) Hyperlipidemia (Chronic) Plantar fascial fibromatosis (Acute) Foot pain (Acute) Nail dystrophy (Acute) Chest pain (Acute) Back pain (Acute) Serrated adenoma of colon (Acute ~12/2020) Tubular adenoma (Acute ~12/2020) Screening for colon cancer (Acute) Amaurosis fugax (Acute) Chronic kidney disease (Chronic) Hallucinations (Acute) Keratoderma (Acute) Obesity (Chronic) JAY JAY (obstructive sleep apnea) (Chronic) Tinea pedis (Acute) Trifascicular block (Acute) Umbilical hernia (Acute) Asthma (Chronic) Paranoia (Acute) Anxiety (Chronic) RLQ abdominal pain (Acute) Dysphagia (Acute) Medical History Bipolar affective disorder GERD (gastroesophageal reflux disease) HTN (hypertension) Lichen simplex, chronic JAY JAY (obstructive sleep apnea) Personal history of colonic polyps Prostate cancer Surgical History History of cataract surgery History of colonoscopy (~12/2020) History of esophagogastroduodenoscopy (EGD) (~12/2020) History of knee surgery History of prostatectomy Social History Smoking/Tobacco Use Status: Former Tobacco Use Smoking risk assessment performed?: Yes Alcohol Intake: former Drug use: Never Substance use type: does not use Details: quit smoking in 1983 quit alcohol in 1987 Do you feel safe at home: Yes Do you feel safe in your relationship?: Yes Exam Narrative Exam Narrative: General: Chronically ill-appearing in no acute distress speaking in complete sentences. Head: Normocephalic, atraumatic Ear, nose, mouth, throat: Grossly normal inspection. Normal voice, handling secretions normally. Neck: Trachea midline. Cardiovascular: Well-perfused distal extremities. Regular rhythm. No murmurs. Respiratory: Nonlabored respiration. Gastrointestinal: Nondistended abdomen. Musculoskeletal: No significant lower extremity pitting edema. Moving all 4 e xtremities spontaneously. Skin: Normal for age and race, grossly normal temperature and turgor. No acute rash. Neurologic: Alert and appropriate, no apparent acute deficits. Cranial nerves II through XII intact grossly. No dysmetria. No dysdiadochokinesia. No pronator drift. Psychiatric: Mood and manner are appropriate. Grooming and personal hygiene are appropriate. Course Vital Signs Vital signs: Vital Signs Temperature 36.8 C 07/07/22 13:19 Pulse 63 07/07/22 13:19 Respiratory Rate 20 07/07/22 13:19 Blood Pressure 158/97 H 07/07/22 13:19 Pulse Oximetry 98 07/07/22 13:19 Temperature 36.8 C 07/07/22 13:19 Temperature Source Oral 07/07/22 13:19 Pulse 63 07/07/22 13:19 Respiratory Rate 20 07/07/22 13:19 Blood Pressure 158/97 H 07/07/22 13:19 Blood Pressure Position Sitting 07/07/22 13:19 Pulse Oximetry 98 07/07/22 13:19 Oxygen Delivery Method Room Air 07/07/22 13:19 Oxygen Flow Rate 0 07/07/22 13:19
[2022-07-07 13:49] LABS: HCT 40.9 % (40.0-50.0); HGB 13.9 g/dL (13.5-17.5); MCH 29.3 pg (27.0-33.0); MCV 86 fL (80-95); MPV 9.7 fL (8.0-11.0); Platelet Count 207 10^3/uL (130-400); RBC 4.74 10^6/uL (4.36-5.78); RDW 12.8 % (11.8-14.1); RDW-SD 40.5 fL; WBC 5.69 10^3/uL (4.4-10.8)
[2022-07-07 14:00] LABS: Anion Gap 8.1 mmol/L (3-11); BUN 19 mg/dL (7-18); CO2 27.9 mmol/L (21.0-32.0); CREATININE 1.4 mg/dL (0.70-1.30); Calcium 9.6 mg/dL (8.5-10.1); Chloride 104 mmol/L (98-107); Estimated GFR 51.45 (mL/min/1.73m2); Glucose 100 mg/dL (74-106); Potassium 3.9 mmol/L (3.5-5.1); Sodium 140 mmol/L (136-145)
[2022-07-07] MEDS: Meclizine 25 MG TAB PO (14:04)
[2022-07-07 14:21] LABS: Magnesium 2.2 mg/dL (1.8-2.4); TSH (W/Ref FT4) 1.86 uIU/mL (0.36-3.74); Troponin I < 50 ng/L (<or=60)
--- NOTE | 2022-07-07 14:40 | DI.RAD_ITS ---
Exam(s) XR CHEST 2V PA LATERAL EXAM: XR CHEST 2V PA LATERAL CLINICAL HISTORY: Palpitations TECHNIQUE: 2D digital imaging was performed of the chest. Two images were obtained. PA and lateral views were obtained. COMPARISON: CR,XR XR CHEST 2V PA LATERAL from 07/02/2022 FINDINGS: MEDIASTINUM: Normal. HEART: Normal. PULMONARY VASCULATURE: Normal. LUNGS: Clear. PLEURAL SPACE: No pleural effusion or pneumothorax. BONE:Within normal limits for the patient's age. OTHER FINDINGS:Normal. IMPRESSION: No acute pulmonary findings. DATA REPOSITORY: RADIATION DOSE DELIVERED:
--- NOTE | 2022-07-07 15:27 | PDOC.ERCMPRO ---
- If Service Date Differs Date of service: 07/07/22 Time of Service: 15:27 Care Management Progress Note Rodrigo presents in the ED for dizziness. At the request of ED provider, OLYA meets with Rodrigo. Patient explains he is currently receiving his services at the [facility] but is considering transferring his care to a local PCP's office. We discuss the various health care clinics in the area and CM provides him with contact information for [facility], [facility], [facility] and [facility]. Upon discharge, OLYA also contacts [facility] at Rodrigo's request for transportation to [facility] where his car is located.
== END 2022-07-07 15:26 | disposition home or self-care (01) ==
LOC: ER 15:29
PROVIDERS: Emergency Provider Emergency Medicine; PCP Student in an Organized Health Care Education/Training Program
DX: R42 Dizziness and giddiness (principal); E86.0 Dehydration; E66.9 Obesity, unspecified; G47.33 Obstructive sleep apnea (adult) (pediatric); I45.3 Trifascicular block; I10 Essential (primary) hypertension
CPT/HCPCS: 80048; 85027; 93005; 99283; 71046; 83735; 84443; 84484; 93010; 99284

== ENCOUNTER 2022-11-24 16:41 | Emergency (ER) | payer OTHER, SELFPAY ==
[2022-11-24 16:47] VITALS: BP 162/76; PULSE 74; RESP 18; TEMP 36.5; O2SAT 96
--- NOTE | 2022-11-24 17:37 | NUR.NOTE ---
Nursing Note: Pt left without being seen.
--- NOTE | 2022-11-29 01:48 | W.EDPROG ---
Date of service: 11/24/22 Time of Service: 15:00 Medical Decision Making Patient left before being seen by any physician staff. LWBS. Discharge Plan Disposition Patient Disposition: Left Without Being Seen Discharge Details Primary Care Provider: Monique Arndt ED Provider: Anjelica Melchor Discharge Data Discharge Date/Time-TO BE ENTERED AT DEPARTURE: 11/24/22 17:38
== END 2022-11-24 17:38 | disposition left against medical advice (07) ==
PROVIDERS: Emergency Provider Emergency Medicine; PCP Student in an Organized Health Care Education/Training Program
DX: Z53.21 Procedure and treatment not carried out due to patient leaving prior to being seen by health care provider (principal)

== ENCOUNTER 2023-05-14 23:37 | Emergency (ER) | payer OTHER, SELFPAY ==
[2023-05-14 23:43] VITALS: BP 179/95; PULSE 85; RESP 16; TEMP 36.4; O2SAT 98
--- NOTE | 2023-05-14 23:45 | DI.CT_ITS ---
Exam(s) CT HEAD WO EXAM: CT HEAD WO CLINICAL HISTORY: fell, hit head at apex, r/o bleed. TECHNIQUE: Imaging Protocol: Axial computed tomography images with coronal and sagittal reformatted images were created and reviewed COMPARISON: CT CT BRAIN NECK CTA from 07/02/2022 FINDINGS: Ventricles and Extra axial spaces: Normal in size and morphology for the patient's age. Hemorrhage: None. Cerebral parenchyma: No evidence of acute infarct or mass. Mild atrophy. Midline shift: None. Brainstem/Cerebellum: Normal. Calvarium: Normal. Visualized Paranasal sinuses/Mastoids: Clear. Soft Tissues: Unremarkable. IMPRESSION: No acute intracranial process. RADIATION DOSE DELIVERED: Total DLP DATA REPOSITORY: All CT scans at this facility are submitted to the National Radiology Data Registry (NRDR) Dose Index Registry (DIR) with the [employer] (ACR). RADIATION OPTIMIZATION: All CT scans at this facility use at least one of these dose optimization te chniques: automated exposure control; mA and/or kV adjustment per patient size (includes targeted exa ms where dose is matched to clinical indication); or iterative reconstruction.
--- NOTE | 2023-05-14 23:51 | ED.GENADUL_ITS ---
Discharge Plan Disposition Patient Disposition: Home Condition: Good Discharge Details Chief Complaint: HeadInjury Clinical Impression: Scalp contusion Primary Care Provider: Monique Arndt ED Provider: Albert Morillo Home Meds and New Rx's Prescriptions: No Action aspirin 325 mg tablet 325 mg PO DAILY omeprazole 20 mg capsule,delayed release(DR/EC) 20 mg PO DAILY PRN rosuvastatin 40 mg tablet 40 mg PO DAILY albuterol sulfate 90 mcg/actuation Hfa Aerosol Inhaler 2 inh INHALATION PRN PRN meclizine 25 mg tablet 25 mg PO BID PRNQty: 7 0RF Discharge Instructions Instructions: Contusion in Adults (ED) Additional Instructions: At this time your CAT scan shows no evidence of bleed, fracture, or other abnormality. If you notice any worsening of your symptoms, or any new symptoms such as vomiting, diarrhea, fever, chills, shortness of breath, chest pain, numbness, weakness, or fainting , please return immediately to the emergency department for reevaluation. Please follow up with your primary care provider as soon as possible for reassessment and reevaluation. As always, it was a pleasure participating in your medical care today. Referrals: Monique Arndt [Primary Care Provider] - Medical Decision Making This is a 78-year-old male with a past medical history of amaurosis fugax, obstructive sleep apnea, chronic kidney disease, who is on a full dose daily aspirin, presents today for evaluation of head trauma. Patient states that he was getting up this evening from his bed to go to the bathroom, when he came back from the bathroom he got back into his bed but hit his head on the headboard. He did not lose consciousness, he recalls the entire event. This was at 10:15 PM. He has had no symptoms since then, no headache or vision changes, but he is very concerned for potential bleed secondary to his aspirin use. No other complaints whatsoever at this time. No history of bleeds or aneurysms. No other modifying factors. No neck or chest or extremity pain. No visual changes. Exam demonstrates a notably well-appearing male, no evidence of trauma to the head. No signs of bleed or deficit or deformity or tenderness on the head or scalp. No concerning abnormalities on neurologic assessment. Patient does have high-level personal concern for bleed. Discussed risk and benefits of observa tion versus CAT scan. Patient has elected to proceed with CAT scan. Will get a Noncon CT to evaluate for acute bleed. I feel that this is low on the differential for possibility but still does remain. No other signs of trauma necessitating other needed imaging at this time. Patient looks notably clinically well. 12:[address] scan negative for acute process or bleed. Patient looks clinically well. Repeat neurologic exam demonstrates no deficits. Patient stable for discharge. Discussed red flags which to return. I have extensively reviewed the treatment plan and discharge instructions with the patient. I have addressed all patient concerns at this time. The patient was made aware of what symptoms to monitor for that would warrant a return to the emergency department. Discussed the plan with the patient, they demonstrate verbal understanding and agreement with our assessment and plan at this time. The documentation in this chart was dictated using [employer] dictation software. Please excuse any dictation errors. COMPARISON: MR BRAIN WO 07/03/2022 11:36 AM FINDINGS: Brain: No intracranial hemorrhage or extra-axial fluid collection. No evidence of mass effect or midline shift. Valdez-white matter differentiation is intact. Cerebral ventricles: No ventriculomegaly. Paranasal sinuses: Unremarkable. No fluid levels. Mastoid air cells: Unremarkable. Bones/joints: No acute calvarial fracture. Soft tissues: Scalp soft tissues are unremarkable. IMPRESSION: No acute intracranial pathology. Thank you for allowing us to participate in the care of your patient. Dictated and Authenticated by: Tc Thibodeaux MD 05/15/2023 12:26 AM Eastern Time ([place] & [place]) HPI General Date/Time Provider Initiated Documentation: 05/14/23 23:44 . HPI Narrative: This is a 78-year-old male with a past medical history of amaurosis fugax, obstructive sleep apnea, chronic kidney disease, who is on a full dose daily aspirin, presents today for evaluation of head trauma. Patient states that he was getting up this evening from his bed to go to the bathroom, when he came back from the bathroom he got back into his bed but hit his head on the headboard. He did not lose consciousness, he recalls the entire event. This was at 10:15 PM. He has had no symptoms since then, no headache or vision changes, but he is very concerned for potential bleed secondary to his aspirin use. No other complaints whatsoever at this time. No history of bleeds or aneurysms. No other modifying factors. No neck or chest or extremity pain. No visual changes. Related Data Home Medications Medication Instructions Recorded Confirmed albuterol sulfate 90 mcg/actuation 2 inh inhalation PRN PRN 06/26/20 05/14/23 aerosol inhaler rosuvastatin 40 mg tablet 40 mg PO DAILY 08/20/20 05/14/23 meclizine 25 mg tablet 25 mg PO BID PRN #7 tabs 07/07/22 05/14/23 omeprazole 20 mg capsule,delayed 20 mg PO DAILY PRN 11/11/22 05/14/23 release aspirin 325 mg tablet 325 mg PO DAILY 02/01/23 05/14/23 Previous Rx's Medication Instructions Recorded meclizine 25 mg tablet 25 mg PO BID PRN #7 tabs 07/07/22 Allergies Allergy/AdvReac Type Severity Reaction Status Date / Time doxycycline Allergy Intermediate hives Verified 05/14/23 23:50 polymyxin B sulfate Allergy Unknown Unverified 05/14/23 23:50 [From Polytrim] trimethoprim [From Polytrim] Allergy Unknown Unverified 05/14/23 23:50 General Stated Complaint: HeadInjury INÉS: 3 Review of Systems All systems reviewed & are unremarkable except as noted in HPI and below PFSH All Active Problems (Updated 05/15/23 @ 00:28 by Albert Morillo DO) Scalp contusion (Acute) Corns and callosities (Acute) Onychomycosis (Acute) Kidney disease, chronic, stage III (moderate, EGFR 30-59 ml/min) (Acute) Covered diagnosis for routine at-risk foot care with Podiatry. Hyperlipidemia (Chronic) Plantar fascial fibromatosis (Acute) Foot pain (Acute) Nail dystrophy (Acute) Back pain (Acute) Chest pain (Acute) Serrated adenoma of colon (Acute ~12/2020) Tubular adenoma (Acute ~12/2020) Dysphagia (Acute) RLQ abdominal pain (Acute) Anxiety (Chronic) Paranoia (Acute) Asthma (Chronic) Umbilical hernia (Acute) Trifascicular block (Acute) Tinea pedis (Acute) JAY JAY (obstructive sleep apnea) (Chronic) Obesity (Chronic) Keratoderma (Acute) Hallucinations (Acute) Chronic kidney disease (Chronic) Amaurosis fugax (Acute) Screening for colon cancer (Acute) Medical History JAY JAY (obstructive sleep apnea) Personal history of colonic polyps Lichen simplex, chronic Prostate cancer GERD (gastroesophageal reflux disease) HTN (hypertension) Bipolar affective disorder Surgical History History of esophagogastroduodenoscopy (EGD) (~12/2020) History of colonoscopy (~12/2020) History of prostatectomy History of cataract surgery History of knee surgery Social History Smoking/Tobacco Use Status: Former Tobacco Use Smoking risk assessment performed?: Yes Alcohol Intake: former Drug use: Never Substance use type: does not use Details: quit smoking in 1983 quit alcohol in 1987 Do you feel safe at home: Yes Do you feel safe in your relationship?: Yes Exam Narrative Exam Narrative: 1.Const: Well-nourished, Well-developed, appearing stated age 2.Eyes: PERRL, no conjunctival injection, and symmetrical lids. 3.ENT: Atraumatic external nose and ears. Moist MM. Neck: Symmetric, trachea midline, No thyromegaly. There is no evidence of raccoon eyes, curtis sign, CSF rhinorrhea, mastoid tenderness, cranial crepitus, hemotympanum, exophthalmos, or hyphema. Patient demonstrates intact dentition with no signs of tooth avulsion or fracture, no signs of jaw deformity, no evidence of a LeFort's fracture, with an intact palate, nose and orbital region. There is no evidence of a nasal septal hematoma. No proptosis. Jaw closes symmetrically. Airway is clear. 4.CVS: +S1/S2, No murmurs or gallops. Peripheral pulses 2+ and equal in all extremities. Brisk capillary refill in all extremities. 5.RESP: Unlabored respiratory effort. Clear to auscultation bilaterally. No wheezes rales or rhonchi 6.GI: Soft, Nontender/Nondistended, No hepatosplenomegaly. No guarding or rebound. 7.MSK: Normocephalic/Atraumatic, Extremities w/o deformity or ttp No cyanosis or clubbing, Normal movement of all extremities 8.Skin: Warm, Dry. No rashes or lesions. 9.Neuro: corrections nurse II-XII grossly intact. Sensation grossly intact, no focal neurologic deficits. All 6 cardinal planes of vision are fully intact. No evidence of rotatory or vertical nystagmus. The patient demonstrated a normal [id number], good dexterity. There was no evidence of dysdiadochokinesia. Patient was able to ambulate without difficulty. There was no wide-based gait. Romberg testing was normal. Tcyq-[id number] testing was normal. Sensation was intact bilaterally as well as muscle strength bilaterally for all extremities. Patient was able to verbalize butter cup with no slurring, or miss p ronunciation. 10.Psych: (AAO) x3. Appropriate mood and affect Course Vital Signs Vital signs: Vital Signs Temperature 36.4 C L 05/14/23 23:43 Pulse 85 05/14/23 23:43 Respiratory Rate 16 05/14/23 23:43 Blood Pressure 179/95 H 05/14/23 23:43 Pulse Oximetry 98 05/14/23 23:43 Temperature 36.4 C L 05/14/23 23:43 Temperature Source Temporal Artery Scan 05/14/23 23:43 Pulse 85 05/14/23 23:43 Respiratory Rate 16 05/14/23 23:43 Blood Pressure 179/95 H 05/14/23 23:43 Blood Pressure Position Sitting 05/14/23 23:43 Pulse Oximetry 98 05/14/23 23:43 Oxygen Delivery Method Room Air 05/14/23 23:43 Oxygen Flow Rate 0 05/14/23 23:43 Pain Level 0 05/14/23 23:43
--- NOTE | 2023-05-15 00:26 | DI.VRAD_ITS ---
PROCEDURE INFORMATION: Exam: CT Head Without Contrast Exam date and time: 05/14/2023 11:58 PM Age: 78 years old Clinical indication: Injury or trauma; Fall; Blunt trauma (contusions or hematomas); Injury details: Fell, hit head at apex, R/O bleed TECHNIQUE: Imaging protocol: Computed tomography of the head without contrast. COMPARISON: MR BRAIN WO 07/03/2022 11:36 AM FINDINGS: Brain: No intracranial hemorrhage or extra-axial fluid collection. No evidence of mass effect or midline shift. Valdez-white matter differentiation is intact. Cerebral ventricles: No ventriculomegaly. Paranasal sinuses: Unremarkable. No fluid levels. Mastoid air cells: Unremarkable. Bones/joints: No acute calvarial fracture. Soft tissues: Scalp soft tissues are unremarkable. IMPRESSION: No acute intracranial pathology. Dictated and Authenticated by: Tc Thibodeaux MD. Ordering:MARY Price MD
== END 2023-05-15 00:46 | disposition home or self-care (01) ==
PROVIDERS: Emergency Provider Student in an Organized Health Care Education/Training Program; PCP Student in an Organized Health Care Education/Training Program
DX: S00.03XA Contusion of scalp, initial encounter (principal); W22.8XXA Striking against or struck by other objects, initial encounter
CPT/HCPCS: 99284; 70450; 99283

== ENCOUNTER 2024-01-23 19:06 | Emergency (ER) | payer BC, SELFPAY ==
[2024-01-23 19:07] VITALS: BP 190/84; PULSE 79; RESP 16; TEMP 36.1; O2SAT 98
[2024-01-23 19:29] VITALS: RESP 16
--- NOTE | 2024-01-23 19:48 | ED.GENADUL_ITS ---
Discharge Plan Disposition Patient Disposition: Home Condition: Stable Discharge Details Clinical Impression: Bruising Primary Care Provider: Monique Arndt ED Provider: Inna Balderas Home Meds and New Rx's Prescriptions: No Action aspirin 325 mg tablet 325 mg PO DAILY cholecalciferol (vitamin D3) 25 mcg (1,000 unit) capsule 25 mcg PO DAILY rosuvastatin 40 mg tablet 40 mg PO DAILY cyanocobalamin (vitamin B-12) 1,000 mcg tablet 1,000 mcg PO DAILY bupropion HCl 150 mg tablet extended release 24 hr 150 mg PO QAM omeprazole 20 mg capsule,delayed release(DR/EC) 20 mg PO DAILY albuterol sulfate 90 mcg/actuation Hfa Aerosol Inhaler 2 inh INHALATION PRN PRN meclizine 25 mg tablet 25 mg PO BID PRNQty: 7 0RF Discharge Instructions Instructions: Minor Contusion ED Additional Instructions: * Easy bruising can occur while on the aspirin. Monitor symptoms and you should notice resolution over the next 1 to 2 weeks. Follow-up with your PCP for reevaluation if you are having more extensive bruising or other concerns HPI General Date/Time Provider Initiated Documentation: 01/23/24 19:22 . Limitations to Documentation: no limitations . Information obtained by: patient . HPI Narrative: 79-year-old gentleman with past medical history of bipolar disease, CKD, amaurosis fugax on full dose daily aspirin presents for evaluation of bruising to his hand. He has noted bruising over the back of his right hand and over the left ring finger. He is not really sure if he had any significant trauma. He says it does not hurt. He says it has been there for the last couple days and seems to be changing in color and just wanted to make sure it was not anything he needed to worry about. Related Data Home Medications ?Medication ?Instructions ?Recorded ?Confirmed albuterol sulfate 90 mcg/actuation 2 inh inhalation PRN PRN 06/26/20 01/23/24 aerosol inhaler rosuvastatin 40 mg tablet 40 mg PO DAILY 08/20/20 01/23/24 meclizine 25 mg tablet 25 mg PO BID PRN #7 tabs 07/07/22 01/23/24 aspirin 325 mg tablet 325 mg PO DAILY 02/01/23 01/23/24 cyanocobalamin (vitamin B-12) 1,000 mcg PO DAILY 05/25/23 01/23/24 1,000 mcg tablet bupropion HCl 150 mg 24 hr tablet, 150 mg PO QAM 12/02/23 01/23/24 extended release omeprazole 20 mg capsule,delayed 20 mg PO DAILY 12/02/23 01/23/24 release cholecalciferol (vitamin D3) 25 25 mcg PO DAILY 12/16/23 01/23/24 mcg (1,000 unit) capsule Previous Rx's ?Medication ?Instructions ?Recorded meclizine 25 mg tablet 25 mg PO BID PRN #7 tabs 07/07/22 Allergies Allergy/AdvReac Type Severity Reaction Status Date / Time doxycycline Allergy Intermediate hives Verified 01/23/24 19:21 polymyxin B sulfate (From Allergy Unknown Unknown Verified 01/23/24 19:21 Polytrim) trimethoprim (From Polytrim) Allergy Unknown Unknown Verified 01/23/24 19:21 General Stated Complaint: Vascular INÉS: 5 Exam Narrative Exam Narrative: Review of Systems: All systems reviewed & are unremarkable except as noted in HPI and below Well-developed, no acute distress Unlabored respiratory effort Right dorsal hand with 3 x 4 area of bruising, no deformity or tenderness, bruising in various stages of color and healing there is a small bruise over the left proximal ring finger Course Vital Signs Vital signs: Vital Signs Temperature 36.1 C L 01/23/24 19:07 Pulse 79 01/23/24 19:07 Respiratory Rate 16 01/23/24 19:07 Blood Pressure 190/84 H 01/23/24 19:07 Pulse Oximetry 98 01/23/24 19:07 Temperature 36.1 C L 01/23/24 19:07 Temperature Source Temporal Artery Scan 01/23/24 19:07 Pulse 79 01/23/24 19:07 Respiratory Rate 16 01/23/24 19:29 Respiratory Effort Normal 01/23/24 19:29 Respiratory Depth Normal 01/23/24 19:29 Respiratory Pattern Normal 01/23/24 19:29 Blood Pressure 190/84 H 01/23/24 19:07 Blood Pressure Position Sitting 01/23/24 19:07 Pulse Oximetry 98 01/23/24 19:07 Oxygen Delivery Method Room Air 01/23/24 19:07 Oxygen Flow Rate 0 01/23/24 19:07 Pain Level 0 01/23/24 19:07 Medical Decision Making Evaluation of skin color changes. On examination he has got some superficial bruising noted to the dorsal aspects of bilateral hands without any deformity or tenderness. He denies any awareness of significant trauma. I suspect that this is likely just some easy bruising given his age, skin friability and full dose aspirin. I do not suspect bony injury or infectious etiology. Recommend continued supportive care as needed. Quality:SDOH Health Related Social Needs: No Data to Display PFSH All Active Problems Bruising (Acute) Urinary incontinence (Acute) Tobacco dependence (Acute) Sleep apnea (Acute) Sacral pain (Acute) Dysthymia (Acute) Raynaud's disease (Acute) Bipolar affective disorder (Acute) Lichen simplex, chronic (Acute) GERD (gastroesophageal reflux disease) (Chronic) HTN (hypertension) (Chronic) Corns and callosities (Acute) Onychomycosis (Acute) Kidney disease, chronic, stage III (moderate, EGFR 30-59 ml/min) (Acute) Covered diagnosis for routine at-risk foot care with Podiatry. Hyperlipidemia (Chronic) Plantar fascial fibromatosis (Acute) Foot pain (Acute) Nail dystrophy (Acute) Back pain (Acute) Chest pain (Acute) Serrated adenoma of colon (Acute ~12/2020) Tubular adenoma (Acute ~12/2020) Dysphagia (Acute) RLQ abdominal pain (Acute) Anxiety (Chronic) Paranoia (Acute) Asthma (Chronic) Umbilical hernia (Acute) Trifascicular block (Acute) Tinea pedis (Acute) JAY JAY (obstructive sleep apnea) (Chronic) Obesity (Chronic) Keratoderma (Acute) Hallucinations (Acute) Chronic kidney disease (Chronic) Amaurosis fugax (Acute) Screening for colon cancer (Acute) Medical History Low back pain Diverticulosis Personal history of colonic polyps Prostate cancer Surgical History History of esophagogastroduodenoscopy (EGD) (~12/2020) History of colonoscopy (~12/2020) History of prostatectomy History of cataract surgery History of knee surgery Social History Smoking/Tobacco Use Status: Former Tobacco Use Smoking risk assessment performed?: Yes Alcohol Intake: former Drug use: Never Substance use type: does not use Details: quit smoking in 1983 quit alcohol in 1987 Do you feel safe at home: Yes Do you feel safe in your relationship?: Yes
== END 2024-01-23 19:31 | disposition home or self-care (01) ==
PROVIDERS: Emergency Provider Emergency Medicine; PCP Student in an Organized Health Care Education/Training Program
DX: R23.3 Spontaneous ecchymoses (principal); I12.9 Hypertensive chronic kidney disease with stage 1 through stage 4 chronic kidney disease, or unspecified chronic kidney disease; N18.30 Chronic kidney disease, stage 3 unspecified; Z79.82 Long term (current) use of aspirin; Z87.891 Personal history of nicotine dependence
CPT/HCPCS: 99283

== ENCOUNTER 2024-03-20 07:38 | Day surgery (SDC) | payer BC, SELFPAY ==
--- NOTE | 2024-03-19 07:32 | W.PM.DSUDISC ---
Date of service: 03/20/24 Time of Service: 09:40 Discharge Plan Disposition Patient Disposition: Home Condition: Good Discharge Details Reason For Visit: screening colonoscopy Attending Provider: Bar Falcon Primary Care Provider: Monique Arndt Home Meds and New Rx's Prescriptions: Continued aspirin 325 mg tablet 325 mg PO DAILY cholecalciferol (vitamin D3) 25 mcg (1,000 unit) capsule 25 mcg PO DAILY metronidazole 0.75 % gel 1 applic topical BID rosuvastatin 40 mg tablet 40 mg PO DAILY cyanocobalamin (vitamin B-12) 1,000 mcg tablet 1,000 mcg PO DAILY bupropion HCl 150 mg tablet extended release 24 hr 150 mg PO QAM omeprazole 20 mg capsule,delayed release(DR/EC) 20 mg PO DAILY albuterol sulfate 90 mcg/actuation Hfa Aerosol Inhaler 2 inh INHALATION PRN PRN meclizine 25 mg tablet 25 mg PO BID PRNQty: 7 0RF budesonide-formoterol 80-4.5 mcg/actuation HFA aerosol inhaler 2 inh INHALATION BID terbinafine HCl 250 mg tablet Patient Comments: has not started yet and plans to take 1/2 dose Discontinued polyethylene glycol 3350 17 gram/dose powder 238 g PO ONCE Qty: 238 0RF Rx Instructions: take per colonoscopy instructions bisacodyl [Dulcolax (bisacodyl)] 5 mg tablet,delayed release (DR/EC) 5 mg PO ONCE Qty: 4 0RF Rx Instructions: take per colonoscopy instructions Discharge Instructions Instructions: Colon polyps, Diverticulosis Additional Instructions: Rodrigo, was very nice seeing you today, and I hope you are comfortable during the procedure. Everything went very smoothly. I did find and remove a single polyp today. It was quite small, and to the naked eye, there is nothing at all that worries me about it. I will send it off to the pathologist for their review, as sometimes those details can impact suggestions for subsequent colonoscopies. He also have a fair amount of diverticulosis. I attached a little bit of information here about colon rectal polyps, as well as diverticulosis. Once I have the result of the pathology exam regarding the polyp, my office will be in touch with any other recommendations. 1. If tolerated, consume a soft, low fiber diet for 1-2 days. 2[address] Do not drive, drink alcohol, operate machinery, make critical decisions, or do activities that require coordination or balance for 24 hours. 3. Because air was put into your colon during the procedure, expelling air from your rectum (passing gas or farting) is normal. 4. You may not have a bowel movement for 1-3 days because of the colonoscopy prep. This is normal. 5. Go directly to the emergency room if you notice any of the following: Develop chills (warm to touch), or if you have a thermometer and your temperature is above 101 Difficulty breathing or difficultly swallowing Persistent vomiting Severe abdominal pain, other than gas cramps Severe chest pain Black, tarry stools Any bleeding ? exceeding one tablespoon 6. Call your physician if the site where your intravenous was started becomes red, swollen, painful, and warm to touch. 7. Your physician has reviewed your pre-procedure medications. Please continue to take those medications as previously ordered. You will be given specific information/education regarding any changes to your medications before leaving. Activity:: Activity as Tolerated Diet:: As Tolerated Discharge Orders Discharge Orders: Discharge Order (Routine); Ordered 03/19/24 Ordered By: Bar Falcon DS: Diagnosis Discharge Diagnosis (1) Encounter for screening colonoscopy: Status: Acute Asessment and Plan: Follow-up on polypectomy results
--- NOTE | 2024-03-19 07:33 | W.COLOREPORT ---
Date of service: 03/20/24 Time of Service: 09:42 Colonoscopy Report Date of procedure: 03/20/24 Pre-op diagnosis general: screening colonoscopy Post-op diagnosis procedure note: other (Diverticulosis, colon polyp) Procedure: colonoscopy with polypectomy Surgeon: Bar Falcon Anesthesia Type: General:No Airway Estimated blood loss (mL): 5 Pathology: other (0.25 cm ascending colon polyp) Complications: None Disposition: same day Indications: Rodrigo is 79 years old. He has a history of diverticulosis. He needs his next screening colonoscopy Prep: Miralax/Dulcolax Procedure Start Time: 09:05 Procedure End Time: 09:31 Retraction Time: 13 Findings: Left-sided diverticulosis, 0.25 cm flat ascending colon polyp Procedure Description: After the induction of anesthesia, and with the patient in left lateral decubitus position, I began by performing an external anorectal exam.? Perineum and skin were normal, as was the anal verge.? There was no evidence of external hemorrhoids.? Next, I performed a digital rectal exam.? I did not appreciate any abnormal findings.? Next, I advanced a colonoscope into the rectal vault.? I performed retroflexion.? This appeared normal. using insufflation, I then advanced the colonoscope beyond the rectal folds and into the sigmoid colon before advancing towards the cecum.? There is sigmoid diverticulosis that extends into the descending colon as well.? The scope was noted to be in the cecum by identification of the ileocecal valve and appendiceal orifice.? I then began withdrawing the colonoscope using repeated irrigation as necessary for full evaluation of the colonic mucosa. Just a few centimeters distal to the ileocecal valve is a 0.25 cm flat polyp. This was removed with cold forceps. Cautery was used at the site given the patient's full dose aspirin. There was minimal bleeding, however. Once the scope was withdrawn to the level of the rectum, great care was taken to examine portions of the rectal folds.? Finally, the scope was withdrawn and the patient was brought to the same-day surgery recovery unit as the anesthetic wore off. ?The findings and instructions were shared with the patient prior to discharge. [place] Bowel Prep [place] Bowel Prep Right Colon: 2 Left Colon: 3 Transverse Colon: 3 Total Score: 8
[2024-03-20 08:15] VITALS: BP 143/81; PULSE 72; RESP 16; TEMP 36.6; O2SAT 98
--- NOTE | 2024-03-20 08:50 | W.ANESPRE ---
General Info Date of Service Date Performed: 03/20/24 Height: 5 ft 10 in Weight: 100.2 kg Body Mass Index (BMI): 31.6 Surgical Procedure: Operation Date: 03/20/24 09:05 Proposed Procedure Side Surgeon mony Falcon MD Meds Allergies and Home Medications Allergies Allergy/AdvReac Type Severity Reaction Status Date / Time doxycycline Allergy Intermediate hives Verified 03/20/24 08:08 polymyxin B sulfate (From Allergy Unknown Unknown Verified 03/20/24 08:08 Polytrim) trimethoprim (From Polytrim) Allergy Unknown Unknown Verified 03/20/24 08:08 Home Medication ?Medication ?Instructions ?Recorded albuterol sulfate 90 mcg/actuation 2 inh inhalation PRN PRN 06/26/20 aerosol inhaler rosuvastatin 40 mg tablet 40 mg PO DAILY 08/20/20 meclizine 25 mg tablet 25 mg PO BID PRN #7 tabs 07/07/22 aspirin 325 mg tablet 325 mg PO DAILY 02/01/23 cyanocobalamin (vitamin B-12) 1,000 mcg PO DAILY 05/25/23 1,000 mcg tablet bupropion HCl 150 mg 24 hr tablet, 150 mg PO QAM 12/02/23 extended release omeprazole 20 mg capsule,delayed 20 mg PO DAILY 12/02/23 release cholecalciferol (vitamin D3) 25 25 mcg PO DAILY 12/16/23 mcg (1,000 unit) capsule metronidazole 0.75 % topical gel 1 applic topical BID 02/29/24 budesonide-formoterol HFA 80 2 inh inhalation BID Lung aid 03/17/24 mcg-4.5 mcg/actuation aerosol inhaler terbinafine HCl 250 mg tablet mg 03/20/24 Current Visit Medications: Current Medications Generic Name Dose Route Start Last Admin Trade Name Freq PRN Reason Stop Dose Admin Ringer's Solution 1,000 mls @ 80 mls/hr 03/20/24 06:00 IV 03/20/24 23:59 INF[facility]ION [facility] IV Miscellaneous Supplies 1 each 03/20/24 06:00 Iv Access IV 03/20/24 23:59 DIRECTED NANCY Ondansetron HCl 4 mg 03/19/24 07:35 Ondansetron 4 Mg/2 Ml Vial IVP 04/18/24 07:34 Q4H PRN PRN Nausea / Vomiting Sodium Chloride 0 ml 03/20/24 06:00 Normal Saline Flush 10 Ml Syr IV 03/20/24 23:59 PRN PRN Sodium Chloride 0 ml 03/20/24 06:00 Normal Saline 10 Ml Vial IJ 03/20/24 23:59 DIRECTED PRN Sterile Water 0 ml 03/20/24 06:00 Water,Injection,Sterile 10 Ml Vial IJ 03/20/24 23:59 DIRECTED PRN PFSH Active Problems Active Problems: Problem Status Onset Code Encounter for screening colonoscopy Acute Z12.11 Urinary incontinence Acute R32 Tobacco dependence Acute F17.200 Sleep apnea Acute G47.30 Sacral pain Acute M53.3 Dysthymia Acute F34.1 Raynaud's disease Acute I73.00 Corns and callosities Acute L84 Onychomycosis Acute B35.1 Kidney disease, chronic, stage III (moderate, EGFR 30-59 ml/min) Acute N18.30 Hyperlipidemia Chronic E78.5 Plantar fascial fibromatosis Acute M72.2 Foot pain Acute M79.673 Nail dystrophy Acute L60.3 Back pain Acute M54.9 Chest pain Acute R07.9 Serrated adenoma of colon Acute ~12/2020 D12.6 Tubular adenoma Acute ~12/2020 D36.9 Dysphagia Acute R13.10 RLQ abdominal pain Acute R10.31 Anxiety Chronic F41.9 Paranoia Acute F22 Asthma Chronic J45.909 Umbilical hernia Acute K42.9 Trifascicular block Acute I45.3 Tinea pedis Acute B35.3 JAY JAY (obstructive sleep apnea) Chronic G47.33 Obesity Chronic E66.9 Lichen simplex, chronic Acute L28.0 Keratoderma Acute Q82.8 Hallucinations Acute R44.3 Chronic kidney disease Chronic N18.9 Amaurosis fugax Acute G45.3 Screening for colon cancer Acute Z12.11 GERD (gastroesophageal reflux disease) Chronic K21.9 HTN (hypertension) Chronic I10 Bipolar affective disorder Acute F31.9 Medical History Medical History Dementia Signs for self Low back pain Diverticulosis Personal history of colonic polyps Prostate cancer Surgical History Surgical History History of esophagogastroduodenoscopy (EGD) (~12/2020) History of colonoscopy (~12/2020) History of prostatectomy History of cataract surgery History of knee surgery Tobacco Smoking/Tobacco Use Status: Former Tobacco Use Alcohol Alcohol Intake: former Substance Use Substance use: Never Substance use type: does not use Details: quit smoking in 1983 quit alcohol in 1987 Vital Signs and Lab Results Vital Signs Most Recent Vital Signs in EMR: Most Recent Vital Signs Temp Pulse Resp BP Pulse Ox 36.6 C 72 16 143/81 H 98 03/20/24 08:15 03/20/24 08:15 03/20/24 08:15 03/20/24 08:15 03/20/24 08:15 Lab Results Blood Type / Crossmatch: No Data to Display Complete Blood Count: No Data to Display Complete Metabolic Panel: No Data to Display Liver Function Panel: No Data to Display Coagulation Panel: No Data to Display Cardiac Panel: No Data to Display Arterial Blood Gas: No Data to Display Venous Blood Gas: No Data to Display Pancreas Panel: No Data to Display Thyroid Panel: No Data to Display Infectious Disease: No Data to Display Blood Cultures: No Data to Display Toxicology Panel: No Data to Display Imaging and Studies Imaging and Studies Study information below may be from another EMR and interpreted by another provider. Please see original notes in EMR for more complete details. EKG Summary: Conclusion Sinus rhythm...normal P axis, V-rate 60- 99 Right bundle branch block...QRSd>120, terminal axis(90,270) I have reviewed and interpreted ECG and agree with software generated interpretation. 06/26/20 Anesthesia Assessment and Plan Anesthesia History Personal History: No History of Anesthesia Complications Family History: No Family History of Anesthesia Complications Exercise Tolerance Exercise Tolerance: Metabolic Equivalents>4 Pertinent Negatives Pertinent Negatives: No Symptoms of GERD and No Major Pulmonary Symptoms or Complaints Cardiac & Pulmonary Exam Cardiac Exam: Heart Murmur Present Pulmonary Exam: Clear Bilateral Breath Sounds Implantable Cardiac Device Does patient have a Pacemaker or an ICD?: No Airway Exam Known Difficult Airway: No Mallampati Class: 2 Mouth Opening: Normal (> 3cm) Thyromental Distance: Greater than 3 cm Neck Range of Motion: Full ROM Neck Circumference: Normal Teeth Condition: Normal Dentition ASA Classification ASA Score: ASA 3 Emergency Case?: No NPO Status NPO Status: NPO Clears >2 hours, Solids >8 hours Anesthesia Plan Resuscitation Status: Full Code Anesthesia Technique: General Anesthesia Airway Planned: Natural Airway Monitors Used: Standard Monitors Preoperative Comments:: Patient and daughter report Rodrigo is a patient at the [facility] and historically Rodrigo reports that the was encouraged to get a cardiac cath, but declined and will continue with close observation. Patient also explained that he is getting worked up for Alzheimer's disease and had an MRI this past Wednesday at the [facility], but is A/Ox3 and daughter and self have no further questions.
[2024-03-20 08:53] VITALS: BMI 31.6
--- NOTE | 2024-03-20 09:29 | BOWEL_PTH ---
PATIENT: Rodrigo Morrow LOC: [facility] U#:[id number] AGE/SX: 79/M ROOM: RE03/20/[address]: Bar Falcon MD : [id number] BED: DIS: 03/20/2024 SPEC #: [id number] RECD: 03/20/24 11:42 STATUS: HAL REQ #: [id number] RIDDHI: 03/20/24 09:[address]: Bar Falcon DEPT: Surgical Specimen RECD BY: Amparo Shrestha ENTERED: 03/20/24 11:43 SP TYPE: Bowel OTHR DR: Monique Arndt Tissues: 1 - BIOPSY BOWEL Procedures: GROSS AND MICRO LEVEL 4 Comments: [id number]
[2024-03-20 09:37] VITALS: BP 106/67; PULSE 64; RESP 18; TEMP 35; O2SAT 98
[2024-03-20 10:00] VITALS: BP 100/56; PULSE 66; RESP 18; TEMP 36; O2SAT 98
--- NOTE | 2024-03-20 13:48 | W.ANESPOSTOP ---
Postoperative Evaluation Date, Time and Location Date Performed: 03/20/24 Time Performed: 09:45 Patient Location: Day Surgery Unit Vital Signs Most Recent Imported Vital Signs: Most Recent Vital Signs Temp Pulse Resp BP Pulse Ox 36 C L 66 18 100/56 L 98 03/20/24 10:00 03/20/24 10:00 03/20/24 10:00 03/20/24 10:00 03/20/24 10:00 Pain Score Most Recent Pain Score: Most Recent Pain Score Pain Level 0 03/20/24 10:00 Assessment Mental Status: Awake (Alert & Oriented to Patient Baseline) Airway and Respiratory Function: Patent airway with normal (patient baseline) respiratory exam Cardiovascular Function: Hemodynamically Stable Hydration Status: Adequately Hydrated Nausea & Vomiting: No Nausea or Vomiting Pain: Pt. Denies Any Pain Peripheral Nerve Block: Patient did not receive a nerve block
== END 2024-03-20 10:20 | disposition home or self-care (01) ==
LOC: SUR 07:38
PROVIDERS: PCP Student in an Organized Health Care Education/Training Program; Visit Provider Surgery
PROC: 0DJD8ZZ Inspection of Lower Intestinal Tract, Via Natural or Artificial Opening Endoscopic (ICD-10-PCS; CPT 45378; principal; 2024-03-20 09:00)
DX: Z12.11 Encounter for screening for malignant neoplasm of colon (principal); K63.5 Polyp of colon; K57.30 Diverticulosis of large intestine without perforation or abscess without bleeding; I10 Essential (primary) hypertension; N18.9 Chronic kidney disease, unspecified; K63.89 Other specified diseases of intestine
CPT/HCPCS: 45380; 88305; J2704

== ENCOUNTER 2024-11-13 07:50 | Emergency (ER) | payer BC, SELFPAY ==
[2024-11-13 07:52] VITALS: BP 140/90; PULSE 77; RESP 18; TEMP 37.4; O2SAT 94
[2024-11-13 07:54] VITALS: BP 140/90; PULSE 77; RESP 18; TEMP 37.4; O2SAT 94
--- NOTE | 2024-11-13 08:06 | W.ED.GENAD ---
Discharge Plan Disposition Patient Disposition: Home Condition: Stable Discharge Details Clinical Impression: Bronchitis Primary Care Provider: Monique Arndt ED Provider: Albert Cartagena Home Meds and New Rx's Prescriptions: New azithromycin 250 mg tablet See Rx Instructions .ROUTE .COMPLEX Qty: 6 0RF Rx Instructions: For 250 mg dose pack: take 500 mg today (day 1), then 250 mg for 4 days (days 2-5) prednisone 20 mg tablet 40 mg PO DAILY 5 Days Qty: 10 0RF Continued aspirin 325 mg tablet 325 mg PO DAILY cholecalciferol (vitamin D3) 25 mcg (1,000 unit) capsule 25 mcg PO DAILY metronidazole 0.75 % gel 1 applic topical BID rosuvastatin 40 mg tablet 40 mg PO DAILY cyanocobalamin (vitamin B-12) 1,000 mcg tablet 1,000 mcg PO DAILY bupropion HCl 150 mg tablet extended release 24 hr 150 mg PO QAM omeprazole 20 mg capsule,delayed release(DR/EC) 20 mg PO DAILY albuterol sulfate 90 mcg/actuation Hfa Aerosol Inhaler 2 inh INHALATION PRN PRN meclizine 25 mg tablet 25 mg PO BID PRNQty: 7 0RF budesonide-formoterol 80-4.5 mcg/actuation HFA aerosol inhaler 2 inh INHALATION BID Discharge Instructions Instructions: Azithromycin (Systemic), Prednisone, Bronchitis, Adult ED Additional Instructions: You were seen in the emergency department for your bronchitis, you had some wheezing which resolved with a breathing treatment, your x-ray shows no pneumonia. Please strip picker your medicines at [facility] in [place] and take them as directed, please return for any increasing respiratory distress, fevers not controlled by Tylenol and ibuprofen, any chest pain or other emergent concerns. Referrals: Monique Arndt [Primary Care Provider, Medicine] HPI General Date/Time Provider Initiated Documentation: 11/13/24 07:54. HPI Narrative: 79 year-old male presents to ED today by POV/ambulating with a chief complaint of cough for the past two days, brought up some yellow sputum today. Quality described as just a cough, no radiation to shortness of breath, fever, body aches, sore throat, chest pain. Severity is described as mild to moderate. Palliating factors include nothing specific attempted. Provoking factors include nothing specific. Events leading up to the incident/Associated Symptoms: Patient has history of asthma, remote history of smoking in the 1970s. Patient not anticoagulated. Related Data Home Medications ?Medication ?Instructions ?Recorded ?Confirmed albuterol sulfate 90 mcg/actuation 2 inh inhalation PRN PRN 06/26/20 11/13/24 aerosol inhaler rosuvastatin 40 mg tablet 40 mg PO DAILY 08/20/20 11/13/24 meclizine 25 mg tablet 25 mg PO BID PRN #7 tabs 07/07/22 11/13/24 aspirin 325 mg tablet 325 mg PO DAILY 02/01/23 11/13/24 cyanocobalamin (vitamin B-12) 1,000 mcg PO DAILY 05/25/23 11/13/24 1,000 mcg tablet bupropion HCl 150 mg 24 hr tablet, 150 mg PO QAM 12/02/23 11/13/24 extended release omeprazole 20 mg capsule,delayed 20 mg PO DAILY 12/02/23 11/13/24 release cholecalciferol (vitamin D3) 25 25 mcg PO DAILY 12/16/23 11/13/24 mcg (1,000 unit) capsule metronidazole 0.75 % topical gel 1 applic topical BID 02/29/24 11/13/24 budesonide-formoterol HFA 80 2 inh inhalation BID Lung aid 03/17/24 11/13/24 mcg-4.5 mcg/actuation aerosol inhaler azithromycin 250 mg tablet See Rx Instructions PO .COMPLEX #6 11/13/24 tabs prednisone 20 mg tablet 40 mg (2 x 20 mg) PO DAILY 5 days 11/13/24 #10 tabs Previous Rx's ?Medication ?Instructions ?Recorded meclizine 25 mg tablet 25 mg PO BID PRN #7 tabs 07/07/22 azithromycin 250 mg tablet See Rx Instructions PO .COMPLEX #6 11/13/24 tabs prednisone 20 mg tablet 40 mg (2 x 20 mg) PO DAILY 5 days 11/13/24 #10 tabs Allergies Allergy/AdvReac Type Severity Reaction Status Date / Time doxycycline Allergy Intermediate hives Verified 11/13/24 07:54 polymyxin B sulfate (From Allergy Unknown Unknown Verified 11/13/24 07:54 Polytrim) trimethoprim (From Polytrim) Allergy Unknown Unknown Verified 11/13/24 07:54 General Stated Complaint: RespSymp INÉS: 3 Review of Systems All systems reviewed & are unremarkable except as noted in HPI and below Exam Narrative Exam Narrative: GENERAL APPEARANCE: Well-nourished, non-toxic, awake and alert, atraumatic, no acute distress. SKIN: Warm, pink, dry, intact, without rashes/lesions/ulcerations. HEAD: Normocephalic, atraumatic, normal hair distribution for gender/age. EYES: Normal conjunctiva, no exudates on lids/lashes. ENT: Nares patent, no circumoral cyanosis, no facial swelling NECK: Supple, trachea midline, painless cervical ROM. LUNGS/CHEST: Lungs - rhonchi L base, diffuse mild expiratory wheezes, non-labored respirations, normal A/P diameter, symmetrical expansion, no chest wall deformity HEART (CV/PV): Regular rate and rhythm without murmur, no peripheral edema, no JVD. ABDOMEN: Soft, non-distended, no guarding. MSK: Normal ROM, no swelling/deformity to bilateral UEs or LEs, moving all extremities without weakness, no cyanosis, spine midline without tenderness, normal curvature. NEURO: Mental Status AAOx4 - alert to person, place, time, events No facial droop, no forehead involvement. Motor: No focal weakness - strength 5/5 in bilateral UEs and LEs, proximal and distal, symmetric. Sensory: sensation intact to light touch globally. Gait normal: patient ambulated without ataxia into ED room. PSYCH: euthymic, cooperative, pleasant, appropriate speech Course Vital Signs Vital signs: Vital Signs Temperature 37.4 C 11/13/24 07:52 Pulse 77 11/13/24 07:52 Respiratory Rate 18 11/13/24 07:52 Blood Pressure 140/90 11/13/24 07:52 Pulse Oximetry 94 11/13/24 07:52 Temperature 37.4 C 11/13/24 07:54 Pulse 77 11/13/24 07:54 Respiratory Rate 18 11/13/24 07:54 Respiratory Effort Normal, Non-Labored 11/13/24 08:00 Respiratory Depth Normal 11/13/24 08:00 Blood Pressure 140/90 11/13/24 07:54 Pulse Oximetry 94 11/13/24 07:54 Medical Decision Making This dictation utilizes [id number] dictation software and may contain unedited grammatical errors. 79 year-old male presents to ED today by POV/ambulating with a chief complaint of cough for the past two days, brought up some yellow sputum today. Quality described as just a cough, no radiation to shortness of breath, fever, body aches, sore throat, chest pain. Severity is described as mild to moderate. Palliating factors include nothing specific attempted. Provoking factors include nothing specific. Events leading up to the incident/Associated Symptoms: Patient has history of asthma, remote history of smoking in the 1970s. Patients' medical history: Asthma, remote history of smoking. Family and social history: Eats healthy diet, no recent travel or sick contacts. Pertinent exam findings / vital signs include rhonchi at the right base, diffuse mild expiratory wheezes, nonlabored respirations, afebrile, vital stable. Differential / pathologies of concern include URI, acute exacerbation of chronic bronchitis, pneumonia, not respiratory distress. Diagnostic studies of: - POC COVID/flu antigen, XR chest. - POC COVID and flu negative - X-ray chest shows no acute pathology Interventions of: -5 days of azithromycin & prednisone. ED Course/Assessment/Plan: 79-year-old male presents with 2 days of cough, starting with some yellow sputum today, he has known asthma and a smoking history in the remote past, he has some adventitious lung sounds diffusely with mild expiratory wheezes and some rhonchi at the left base, no pneumonia on chest x-ray, COVID and flu testing negative, reasonable to treat for bronchitis with a Z-Librado and prednisone, stressed strict return criteria for any increasing respiratory distress, chest pain or other emergent concerns. Findings not consistent with hypoxic respiratory failure, sepsis, pneumonia. Disposition of Bronchitis. Patient verbalized understanding of the plan and return to ED criteria and engaged in shared decision making. Medical Records Medical records reviewed: Yes I reviewed the patient's medical records. Imaging Data Radiologic Study: Attestation: I personally reviewed and interpreted this imaging study as follows: Imaging: X-Ray Radiologist's impression: EXAM: XR CHEST 2V PA LATERAL CLINICAL HISTORY: cough, wheeze, rhonchi L base TECHNIQUE: 2D digital imaging was performed. Two views. COMPARISON: CT CT THORAX CTA from 01/16/2021 CR XR CHEST 2V PA LATERAL from 07/07/2022 CR XR CHEST 2V PA LATERAL from 06/28/2024 FINDINGS: HEART: Normal size. Aorta: Not dilated. PULMONARY VASCULATURE: Normal. MEDIASTINUM: Unremarkable. LUNGS: The left lung is clear. Mild scarring in the right middle lobe. PLEURAL SPACE: No pleural effusion or pneumothorax. BONE:Unremarkable for age. SOFT TISSUES: Unremarkable. IMPRESSION: No acute abnormality. PFSH All Active Problems (Updated 11/13/24 @ 09:06 by NAYELI Kirby) Bronchitis (Acute) Encounter for screening colonoscopy (Acute) Urinary incontinence (Acute) Tobacco dependence (Acute) Sleep apnea (Acute) Sacral pain (Acute) Dysthymia (Acute) Raynaud's disease (Acute) Corns and callosities (Acute) Onychomycosis (Acute) Kidney disease, chronic, stage III (moderate, EGFR 30-59 ml/min) (Acute) Covered diagnosis for routine at-risk foot care with Podiatry. Hyperlipidemia (Chronic) Plantar fascial fibromatosis (Acute) Foot pain (Acute) Nail dystrophy (Acute) Back pain (Acute) Chest pain (Acute) Serrated adenoma of colon (Acute ~12/2020) Tubular adenoma (Acute ~12/2020) Dysphagia (Acute) RLQ abdominal pain (Acute) Anxiety (Chronic) Paranoia (Acute) Asthma (Chronic) Umbilical hernia (Acute) Trifascicular block (Acute) Tinea pedis (Acute) JAY JAY (obstructive sleep apnea) (Chronic) Obesity (Chronic) Lichen simplex, chronic (Acute) Keratoderma (Acute) Hallucinations (Acute) Chronic kidney disease (Chronic) Amaurosis fugax (Acute) Screening for colon cancer (Acute) GERD (gastroesophageal reflux disease) (Chronic) HTN (hypertension) (Chronic) Bipolar affective disorder (Acute) Medical History (Updated 11/13/24 @ 09:06 by NAYELI Kirby) Dementia Signs for self Low back pain Diverticulosis Personal history of colonic polyps Prostate cancer Surgical History (Updated 03/20/24 @ 15:23 by Aria Alvarez) History of esophagogastroduodenoscopy (EGD) (~12/2020) History of colonoscopy (~03/2021) History of prostatectomy History of cataract surgery History of knee surgery Social History Smoking/Tobacco Use Status: Former Tobacco Use Quit Date: 05/17/83 Smoking risk assessment performed?: Yes Alcohol Intake: former Drug use: Never Substance use type: does not use Details: quit smoking in 1983 quit alcohol in 1987 Housing: house Do you feel safe at home: Yes Do you feel safe in your relationship?: Yes
--- NOTE | 2024-11-13 08:15 | DI.RAD_ITS ---
Exam(s) XR CHEST 2V PA LATERAL EXAM: XR CHEST 2V PA LATERAL CLINICAL HISTORY: cough, wheeze, rhonchi L base TECHNIQUE: 2D digital imaging was performed. Two views. COMPARISON: CT CT THORAX CTA from 01/16/2021 CR XR CHEST 2V PA LATERAL from 07/07/2022 CR XR CHEST 2V PA LATERAL from 06/28/2024 FINDINGS: HEART: Normal size. Aorta: Not dilated. PULMONARY VASCULATURE: Normal. MEDIASTINUM: Unremarkable. LUNGS: The left lung is clear. Mild scarring in the right middle lobe. PLEURAL SPACE: No pleural effusion or pneumothorax. BONE:Unremarkable for age. SOFT TISSUES: Unremarkable. IMPRESSION: No acute abnormality. DATA REPOSITORY: RADIATION DOSE DELIVERED:
[2024-11-13] MEDS: Albuterol/Ipratropium 3 ML UPD VIAL UPD (08:23)
[2024-11-13 08:47] VITALS: BP 120/64; PULSE 78; RESP 20; TEMP 36.9; O2SAT 99
== END 2024-11-13 09:24 | disposition home or self-care (01) ==
PROVIDERS: Emergency Provider Physician Assistant; PCP Student in an Organized Health Care Education/Training Program
DX: J20.9 Acute bronchitis, unspecified (principal)
CPT/HCPCS: 99283 ×2; 87428; 71046; J7620

== ENCOUNTER 2025-01-16 14:13 | Emergency (ER) | payer OTHER, SELFPAY ==
[2025-01-16] VITALS (31 sets, daily range): BP systolic 107–144; BP diastolic 58–84; PULSE 61–81; RESP 14–27; TEMP 36.4–37.1; O2SAT 95–100
--- NOTE | 2025-01-16 14:15 | DI.RAD_ITS ---
Exam(s) XR CHEST 2V PA LATERAL EXAM: XR CHEST 2V PA LATERAL CLINICAL HISTORY: Chest pain TECHNIQUE: 2D digital imaging was performed. Two views. COMPARISON: CR XR CHEST 2V PA LATERAL from 11/13/2024 FINDINGS: HEART: Normal size. Aorta: Not mildly tortuous. PULMONARY VASCULATURE: Normal. MEDIASTINUM: Unremarkable. LUNGS: Clear. PLEURAL SPACE: No pleural effusion or pneumothorax. BONE:Unremarkable for age. SOFT TISSUES: Unremarkable. IMPRESSION: No acute abnormality. DATA REPOSITORY: RADIATION DOSE DELIVERED:
--- NOTE | 2025-01-16 14:15 | RT.EKG_ITS ---
APPROVED REPORT Exam: Resting ECG Reason for Exam: Chest pain Patient Location: E HR:83 bpm ECG Measurements Heart Rate 83 AXIS ND 191 P 76 QRSd 154 QRS -82 QT 400 T 27 QTc 470 Conclusion Sinus rhythm...normal P axis, V-rate 60- 99 RBBB and LAFB...QRSd >120mS, axis(-40,240)
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
[2025-01-16 15:25] LABS: Abs Immature Grans 0.02 10^3/uL (0.0-0.06); HCT 39.6 % (40.0-50.0); HGB 13.3 g/dL (13.5-17.5); Immature Grans % 0.4 %; MCH 29.4 pg (27.0-33.0); MCHC 33.6 % (32.0-36.0); MCV 87 fL (80-95); MPV 9.4 fL (8.0-11.0); Platelet Count 195 10^3/uL (130-400); RBC 4.53 10^6/uL (4.36-5.78); RDW 13.4 % (11.8-14.1); RDW-SD 42.7 fL; WBC 5.31 10^3/uL (4.4-10.8)
[2025-01-16 15:50] LABS: ALT 17 U/L (16-63); AST 17 U/L (15-37); Albumin 3.6 g/dL (3.4-5.0); Alkaline Phosphatase 97 U/L (46-116); Anion Gap 5.4 mmol/L (3-11); BUN 17 mg/dL (7-18); Bilirubin, Total 0.5 mg/dL (0.2-1.0); CO2 29.6 mmol/L (21.0-32.0); Calcium 8.9 mg/dL (8.5-10.1); Chloride 107 mmol/L (98-107); Estimated GFR 61.13 (mL/min/1.73m2); Glucose 106 mg/dL (74-106); Magnesium 1.7 mg/dL (1.8-2.4); Potassium 3.6 mmol/L (3.5-5.1); Sodium 142 mmol/L (136-145); Total Protein 6.9 g/dL (6.4-8.2); Troponin I 8 ng/L (<or=76)
[2025-01-16 16:45] LABS: Troponin I 9 ng/L (<or=76)
--- NOTE | 2025-01-16 17:13 | W.EDPROG ---
Date of service: 01/16/25 Time of Service: 17:13 Medical Decision Making Care assumed from provider (NAYELI Salomon) Please see their initial HPI, PE, and documentation. Discussed patient details and case and pending workup and disposition. Patient is hemodynamically stable, and alert and oriented. At the time of signout pending serial troponin and disposition. 1 hour troponin is within normal limits with a level of 9, the initial troponin 8, in short the patient is an 87-year-old male who presents with chest pressure who has been awakened from sleep with anxiety and chest pain x 2 weeks. Magnesium slightly low 1.7, chest x-ray shows no acute abnormality. Patient has remained hemodynamically stable alert and oriented with stable vital signs throughout the remainder of the stay. This text was generated using [employer] system, please disregard any oddities of phrase or misspellings. Medical Records Medical records reviewed: Yes I reviewed the patient's medical records. Lab Data Lab results reviewed: Yes I reviewed the patient's lab results. Labs: Laboratory Tests Range/Units 01/16/25 01/16/25 01/16/25 15:15 16:15 17:15 WBC (4.4-10.8) 10^3/uL 5.31 RBC (4.36-5.78) 10^6/uL 4.53 Hgb (13.5-17.5) g/dL 13.3 L Hct (40.0-50.0) % 39.6 L MCV (80-95) fL 87 MCH (27.0-33.0) pg 29.4 MCHC (32.0-36.0) % 33.6 RDW (11.8-14.1) % 13.4 Plt Count (130-400) 10^3/uL 195 MPV (8.0-11.0) fL 9.4 Immature Gran % % 0.4 Neutrophils % % 54.5 Lymphocytes % % 29.9 Monocytes % % 9.4 Eosinophils % % 4.9 Basophils % % 0.9 Nucleated RBC % (0.0-0.3) % 0.0 Absolute Neutrophils (1.2-6.7) 10^3/uL 2.89 Absolute Lymphocytes (1.2-3.4) 10^3/uL 1.59 Absolute Monocytes (0.1-0.8) 10^3/uL 0.50 Absolute Eosinophils (0.0-0.7) 10^3/uL 0.26 Absolute Basophils (0.0-0.2) 10^3/uL 0.05 Sodium (136-145) mmol/L 142 Potassium (3.5-5.1) mmol/L 3.6 Chloride (98-107) mmol/L 107 Carbon Dioxide (21.0-32.0) mmol/L 29.6 Anion Gap (3-11) mmol/L 5.4 BUN (7-18) mg/dL 17 Creatinine (0.70-1.30) mg/dL 1.2 Est GFR (CKD-EPI 2020) (mL/min/1.73m2) 61.13 Glucose (74-106) mg/dL 106 Calcium (8.5-10.1) mg/dL 8.9 Magnesium (1.8-2.4) mg/dL 1.7 L Total Bilirubin (0.2-1.0) mg/dL 0.5 AST (15-37) U/L 17 ALT (16-63) U/L 17 Alkaline Phosphatase (46-116) U/L 97 Troponin I (<or=76) ng/L 8 9 Cancelled Total Protein (6.4-8.2) g/dL 6.9 Albumin (3.4-5.0) g/dL 3.6 Discharge Plan Disposition Patient Disposition: Home Condition: Stable Discharge Details Clinical Impression: Anxiety, Chest pain due to psychological stress Primary Care Provider: Monique Arndt ED Provider: Estefani Tello Home Meds and New Rx's Prescriptions: Continued aspirin 325 mg tablet 325 mg PO DAILY cholecalciferol (vitamin D3) 25 mcg (1,000 unit) capsule 25 mcg PO DAILY metronidazole 0.75 % gel 1 applic topical BID rosuvastatin 40 mg tablet 40 mg PO DAILY cyanocobalamin (vitamin B-12) 1,000 mcg tablet 1,000 mcg PO DAILY bupropion HCl 150 mg tablet extended release 24 hr 150 mg PO QAM omeprazole 20 mg capsule,delayed release(DR/EC) 20 mg PO DAILY azithromycin 250 mg tablet See Rx Instructions .ROUTE .COMPLEX Qty: 6 0RF Rx Instructions: For 250 mg dose pack: take 500 mg today (day 1), then 250 mg for 4 days (days 2-5) albuterol sulfate 90 mcg/actuation Hfa Aerosol Inhaler 2 inh INHALATION PRN PRN meclizine 25 mg tablet 25 mg PO BID PRNQty: 7 0RF budesonide-formoterol 80-4.5 mcg/actuation HFA aerosol inhaler 2 inh INHALATION BID Discharge Instructions Instructions: Troponin Test, Chest Pain, Adult ED, Anxiety, Adult ED Additional Instructions: At this time no evidence of heart attack. No evidence of pneumonia or any abnormality on chest x-ray. Follow up with primary care provider in 3-5 days to discuss follow-up stress test and/or echocardiogram if symptoms persist. Return to ED sooner if any worsening chest pain not relieved by Tylenol ibuprofen, shortness of breath productive cough, fever 100.8, racing heart or concerns. Please follow-up with [facility] services for possible counseling. Thank you for allowing us to care for you today. Referrals: [facility] [Outside] - 2 weeks Referral Note: ER follow up, Anxiety Monique Arndt [Primary Care Provider, Medicine] - 1 week Referral Note: ER follow-up, chest pain to discuss stress test and further evaluation if needed. Clinical Impression: Anxiety; Chest pain due to psychological stress Discharge Data Discharge Date/Time-TO BE ENTERED AT DEPARTURE: 01/16/25 17:26
== END 2025-01-16 17:26 | disposition home or self-care (01) ==
PROVIDERS: Physician Assistant; Emergency Provider Registered Nurse Emergency; PCP Student in an Organized Health Care Education/Training Program
DX: F41.9 Anxiety disorder, unspecified (principal); R07.9 Chest pain, unspecified
CPT/HCPCS: 99285; 99284; 36415; 00123; 80053; 93005; 71046; 83735; 84484; 85025; 93010